=== PATIENT | female | born 1960 | race Caucasian/White ===

== ENCOUNTER 2024-04-04 16:00 | Outpatient (RCR) | payer MEDICARE, OTHER, SELFPAY | END 2024-04-04 16:05 | disposition home or self-care (01) | LOC: PT 16:00 | PROVIDERS: Visit Provider Nurse Practitioner Family | DX: L03.116 Cellulitis of left lower limb (principal); I87.2 Venous insufficiency (chronic) (peripheral); S81.802A Unspecified open wound, left lower leg, initial encounter; B95.7 Other staphylococcus as the cause of diseases classified elsewhere | CPT/HCPCS: 29580; 97140; 97163; 97164; 97597; 97598 ==

== ENCOUNTER 2024-08-21 15:00 | Outpatient (RCR) | payer MEDICARE, MEDICAID, SELFPAY | END 2024-08-21 23:59 | disposition home or self-care (01) | LOC: PT 15:00 | PROVIDERS: Visit Provider Family Medicine | DX: I87.311 Chronic venous hypertension (idiopathic) with ulcer of right lower extremity (principal) | CPT/HCPCS: 29580; 87070; 87077; 87186; 87205; 97163; 97164; 97597; 97598 ==

== ENCOUNTER 2024-09-20 13:58 | Outpatient (CLI) | payer MEDICARE, MEDICAID, SELFPAY ==
--- NOTE | 2024-09-20 14:03 | US_ITS ---
FINAL REPORT CLINICAL HISTORY: decreased pulses, sensation, discoloration of skin, wound on left mid calf in unna boot. Previous smoker, HTN, hyperlipidemia, bilateral claudication and rest pain. COMPARISON: None FINDINGS: ANKLE-BRACHIAL PRESSURE INDICES Pressure indices are as follows: RIGHT LOWER EXTREMITY: Ankle-brachial pressure index: 1.0 Comments: Normal LEFT LOWER EXTREMITY: Ankle-brachial pressure index: 1.0 Comments: Normal CONCLUSION: No evidence of significant obstructive peripheral vascular disease of the lower extremities Reviewed, Interpreted and Dictated by Mandeep Russo MD Transcribed by Kimberly Gonzalez Authenticated and [facility]
== END 2024-09-20 23:59 | disposition home or self-care (01) ==
LOC: RT 13:59
PROVIDERS: PCP Family Medicine; Visit Provider Nurse Practitioner
DX: R09.89 Other specified symptoms and signs involving the circulatory and respiratory systems (principal); I89.0 Lymphedema, not elsewhere classified; L97.921 Non-pressure chronic ulcer of unspecified part of left lower leg limited to breakdown of skin; L81.9 Disorder of pigmentation, unspecified; R20.8 Other disturbances of skin sensation
CPT/HCPCS: 93923

== ENCOUNTER 2024-10-03 14:07 | Outpatient (CLI) | payer MEDICARE, MEDICAID, SELFPAY ==
[2024-10-03 14:35] LABS: Basophils % 0.3 % (0.1-2.0); Eosinophils # 0.2 K/mm3 (0.0-0.4); Eosinophils % 1.5 % (0.1-12.0); Hematocrit 38.3 % (37.0-47.0); Hemoglobin 12.4 g/dL (12.2-16.2); Lymphocytes # 2.1 K/mm3 (0.7-4.5); Lymphocytes % 16.2 % (10-50); Mean Corpuscular HGB Conc 32.4 g/dL (31.8-35.4); Mean Corpuscular Hemoglobin 30.5 pg (27.0-31.2); Mean Corpuscular Volume 94.3 fl (81-99); Mean Platelet Volume 9.5 fl (7.4-10.4); Monocytes # 0.8 K/mm3 (0.1-1.0); Monocytes % 6.4 % (1.7-9.3); Neutrophils # 9.9 K/mm3 (1.8-7.8); Neutrophils % 75.1 % (37.0-80.0); Platelet Count 391 K/mm3 (142-424); Red Blood Count 4.06 M/mm3 (4.20-5.40); Red Cell Distribution Width 14.5 % (11.5-17.5); White Blood Count 13.2 K/mm3 (4.8-10.8)
[2024-10-03 15:23] LABS: Alanine Aminotransferase 23 U/L (12-78); Albumin Level 3.5 g/dl (3.5-5.0); Alkaline Phosphatase 87 U/L (38-126); Anion Gap 14.8 mEq/L (5-15); Aspartate Amino Transferase 24 U/L (14-36); Bilirubin,Direct 0.5 mg/dl (0.0-0.4); Bilirubin,Indirect 0.3 mg/dL (0.0-0.9); Bilirubin,Total 0.8 mg/dl (0.2-1.3); Bilirubin,Unconjugated 0.3 mg/dL (0.0-1.1); Blood Urea Nitrogen 18 mg/dl (7-17); Calcium 9.1 mg/dl (8.4-10.2); Carbon Dioxide 27 mmol/L (22.0-30.0); Chloride 101 mmol/L (98-107); Chol/HDL Ratio 3.9 (1-3.5); Cholesterol 125 mg/dl (140-200); Estimated Glomerular Filt Rate 45 ml/min (>60); GFR (African American) 55 ML/MIN (>60); Glucose 96 mg/dl (74-100); HDL Cholesterol 32 mg/dl (40-60); Potassium 4.8 mmoL/L (3.5-5.1); Sodium 138 mmol/L (136-145); Triglycerides 117 mg/dl (30-150); VLDL Cholesterol 23 mg/dL (0-40)
[2024-10-03 15:34] LABS: Direct LDL Cholesterol 59.14 mg/dL (100-129)
[2024-10-03 15:42] LABS: Free T4 (Free Thyroxine) 1.22 ng/dl (0.78-2.19)
[2024-10-03 15:54] LABS: Thyroid Stimulating Hormone 1.57 uIU/mL (0.465-4.68)
== END 2024-10-03 23:59 | disposition home or self-care (01) ==
LOC: LAB 14:08
PROVIDERS: PCP Family Medicine; Visit Provider Nurse Practitioner Family
DX: I89.0 Lymphedema, not elsewhere classified (principal); L97.921 Non-pressure chronic ulcer of unspecified part of left lower leg limited to breakdown of skin; R06.09 Other forms of dyspnea; I50.9 Heart failure, unspecified
CPT/HCPCS: 36415; 80048; 80061; 80076; 84439; 84443; 85025

== ENCOUNTER 2024-10-18 10:41 | Outpatient (CLI) | payer MEDICARE, MEDICAID, SELFPAY ==
--- NOTE | 2024-10-18 | CA_ITS ---
APPROVED REPORT Exam: Pharmacologic Technologist: Marcia Russell Ht: 5 ft 4 in Wt: 313 lbs BSA: 2.37 m2 HR: 64 bpm BP: 157/85 mmHg Medical History Medical History: HTN, Hyperlipidemia, Smoking Medications: Albuterol, Aspirin, Atorvastatin, Vit D3, Doxycycline Hyclate, Furosemide, Duoneb, Metoprolol Succinate ER, Potassium, Ranolazine ER, Valsartan Allergies: No known drug allergies Cardiac Risk Factors: HTN, Hyperlipidemia, FHX of CAD, Smoking Stress Test Details Test: Lexiscan HR Resting HR: 64 bpm Max Heart Rate (APMHR): 154 bpm Target HR (85% APMHR): 131 bpm Recovery HR: 73 bpm BP Resting BP: 157.0/85.0 mmHg Max BP: 168.0/82.0 mmHg Recovery BP: 151.0/76.0 mmHg ECG Stress ECG Conclusion Patient developed mild dyspnea after Lexiscan administration Ectopy: PACs, PVCs Electronically signed by : Ann Bravo MD 10/21/2024 01:09:44
--- NOTE | 2024-10-18 10:44 | CA_ITS ---
APPROVED REPORT EXAM: Comprehensive 2D, Doppler, and color-flow Echocardiogram Electric Meter Installer Helper: Myesha De León CRT Ht: 5 ft 4 in Wt: 313lbs BSA: 2.37 BP: 135/67 mmHg Indications: Congestive Heart Failure, COPD, Shortness of Breath, Peripheral Edema, CAD, Hyperlipidemia, Hypertension/HDD TDE very limited images, lung interference, 2D Dimensions EF AP4 50.90 % GL Strain -12.4 % M-Mode Dimensions RVDd 2.74 cm (0.9-2.6) LA Diam 4.30 cm (1.9-4.0) LVDd 5.16 cm (3.5-5.7) LVDs 3.18 cm (3.5-5.7) IVSd 1.48 cm (0.6-1.1) PWd 0.27 cm (0.6-1.1) EF (Teich) 68.30% FS 38.40% EDV (Teich) 127.20 mL ESV (Teich) 40.30 mL LV Diastology E Decel Time 273 (160-240 msec) E/A Ratio 0.85 Aortic Valve AO Peak GR. 8.90 mmHg Mitral Valve MV A Velocity 54.0 (40-130 cm/s) E/A Ratio 0.85 Tricuspid Valve TR P. Velocity 162.00 cm/s RAP Estimate 10.00 mmHg RVSP 20.50 mmHg Left Ventricle The left ventricle is normal size. The left ventricular systolic function is normal. The left ventricular ejection fraction is within the normal range. There is increased LV wall thickness. Diastolic function is indeterminate. There is normal LV segmental wall motion. LVEF is 55%. Right Ventricle The right ventricle is normal size. The right ventricular systolic function is normal. Atria The left atrium is mildly dilated. Right atrium is mildly dilated. There is no Doppler evidence of interatrial shunt. Aortic Valve The aortic valve leaflets are not well-visualized. There is no aortic valvular stenosis. No aortic regurgitation is present. Mitral Valve The mitral valve leaflets are not well-visualized. No evidence of mitral valve stenosis. There is no mitral valve regurgitation noted. Tricuspid Valve The tricuspid valve leaflets are not well-visualized. Trace tricuspid regurgitation. There is insufficient TR jet to estimate RVSP. The pulmonic valve is not well-visualized. Great Vessels The aortic root is not well-visualized. The IVC is not well-visualized. Pericardium There is no pericardial effusion. Other Information Study Quality: Technically Difficult Conclusion Technically very difficult study due to poor acoustic windows. Grossly, normal biventricular systolic function. Mild biatrial dilation. Valve leaflet mobility is not well-visualized, but grossly no significant valvular stenosis or regurgitation. Electronically signed by : Ann Bravo MD 10/26/2024 01:02:43
--- NOTE | 2024-10-18 11:27 | XR_ITS ---
FINAL REPORT CLINICAL HISTORY: dyspnea/elevate wbc COMPARISON: None FINDINGS: No acute pulmonary density is evident. There is blunting of the left costophrenic angle, that may represent effusion or scar. The mediastinum has a normal appearance. The cardiac silhouette is unremarkable. IMPRESSION: No evidence of pneumonia. Blunting left costophrenic angle, effusion or scar. Reviewed, Interpreted and Dictated by Yesenia Cagle MD Transcribed by Kimberly Gonzalez Authenticated and [facility]
--- NOTE | 2024-10-18 11:27 | NM_ITS ---
APPROVED REPORT Exam: Nuclear Stress Test Indication: SOB, Fatigue, CAD, CHF, HTN, High cholesterol, Family history, Edema Patient Location: Outpatient Stress Tech: Marcia Russell PR Tech:Maddi Adorno, ARRT, RT (R)(N) Ht: 5 ft 4 in Wt: 310 lbs Bra Size: B HR: 66 bpm BP: 157/85 mmHg BSA: 2.36 m2 TID: 1.07 BMI: 53.2 History: SOB, Fatigue, CAD, CHF, HTN, High cholesterol, Family history, Edema Procedure: Patient received 0.4 mg of intravenous Lexiscan, resting heart rate 66 bpm, resting blood pressure 157/85 mmHg, with Lexiscan maximum heart rate achieved was 82 bpm which is % of the maximum predicted heart rate and blood pressure was 168/82 mmHg. With Lexiscan, patient denied any complaint of chest pain. Cardiac Stress and Resting SPECT Images: Cardiac Stress and Resting SPECT images were obtained using technetium 99m Myoview 28.6 mCi stress and 10.66 mCi at rest. The patient could not lie on her abdomen. Therefore, prone stress imaging could not be performed. This may affect the diagnostic interpretation of the study findings. Resting and stress imaging in supine positions demonstrate no evidence of fixed or reversible perfusion defects. Gated imaging demonstrates normal global and regional LV systolic function. LVEF is calculated at 71%. Conclusion: No evidence of fixed or reversible perfusion defects. Gated imaging demonstrates normal global and regional LV systolic function. LVEF is calculated at 71%. Electronically signed by : Ann Bravo MD 10/21/2024 01:08:39
[2024-10-18] MEDS: REGADENOSON 0.4MG/5ML SYRINGE 0.4 MG IV (14:26)
[2024-10-18] MEDS: ISOTOPE MYOVIEW (PER STUDY) 1 DOSE IV (14:26)
[2024-10-18] MEDS: SODIUM CHLORIDE 0.9% 10ML SYR (RAD ONLY) 10 ML IV ×2 (14:26→14:27)
== END 2024-10-18 23:59 | disposition home or self-care (01) ==
LOC: RT 10:41
PROVIDERS: PCP Family Medicine; Visit Provider Nurse Practitioner Family
DX: I51.7 Cardiomegaly (principal); I50.9 Heart failure, unspecified; R06.09 Other forms of dyspnea; I89.0 Lymphedema, not elsewhere classified; L97.921 Non-pressure chronic ulcer of unspecified part of left lower leg limited to breakdown of skin
CPT/HCPCS: 71046; 78452; 93017; 93018; 93306; A9502; J2785

== ENCOUNTER 2024-10-26 12:26 | Outpatient (CLI) | payer MEDICARE, MEDICAID, SELFPAY ==
--- NOTE | 2024-10-26 12:27 | CT_ITS ---
FINAL REPORT TECHNIQUE: Post contrast axial imaging of the aorta and bilateral lower extremity was obtained and reviewed. This study was performed with techniques to keep radiation doses as low as reasonably achievable (ALARA). Individualized dose reduction techniques using automated exposure control or adjustment of mA and/or kV according to the patient''s size were employed. CLINICAL HISTORY: non healing wound LLE FINDINGS: There is linear opacity at the left base consistent with scar or atelectasis. Finding is best seen on images 7 through 9 of series 3. There is a well-circumscribed benign-appearing cyst in the right lobe of the liver measuring 4.1 x 3.1 cm. The gallbladder is normal. The spleen, pancreas, and adrenals are unremarkable. There is some density in the left lower pole collecting system, probably due to staghorn calculus measuring up to 2.5 cm. There is a left adnexal cyst measuring 4.2 x 3.2 cm, indeterminate. The urinary bladder is unremarkable. There is mild vascular calcification at the origin of the celiac axis and SMA. There is no significant stenosis. The CRISTIN is patent. There is moderate vascular calcification at the abdominal aorta and iliac vessels without evidence of stenosis. The external iliac arteries are patent. Right: There is mild calcification of the common femoral artery without evidence of stenosis. There is a patent SFA contiguous with patent trifurcation. There is two-vessel runoff to the right foot via the anterior and posterior tibial arteries. Note is made of edema of the right lower extremity. Left: There is mild vascular calcification of the common femoral artery without significant stenosis. There is a patent SFA and popliteal artery. There is three-vessel runoff to the left foot. There is a large soft tissue ulceration over the lateral aspect of the left lower leg with significant subcutaneous edema. IMPRESSION: Mild vascular calcifications without significant stenosis. Staghorn calculus in the left kidney. Soft tissue ulceration in the left lower leg with probable associated cellulitis. Reviewed, Interpreted and Dictated by Mandeep Russo MD Transcribed by Chani Gupta Authenticated and [facility]
[2024-10-26] MEDS: SODIUM CHLORIDE 0.9% 10ML SYR (RAD ONLY) 10 ML IV ×2 (12:58→12:59)
[2024-10-26] MEDS: 0.9 % SODIUM CHLORIDE 50 ML VIAL IV ×2 (12:58)
[2024-10-26] MEDS: IOPAMIDOL-370 (76%);100ML BOTTLE 100 ML IV (12:59)
[2024-10-26] MEDS: IOPAMIDOL-370 (76%);100ML BOTTLE 20 ML IV (12:59)
== END 2024-10-26 23:59 | disposition home or self-care (01) ==
LOC: RAD 12:27
PROVIDERS: PCP Family Medicine; Visit Provider Nurse Practitioner Family
DX: L97.921 Non-pressure chronic ulcer of unspecified part of left lower leg limited to breakdown of skin (principal); I89.0 Lymphedema, not elsewhere classified; I25.10 Atherosclerotic heart disease of native coronary artery without angina pectoris; R06.09 Other forms of dyspnea; I50.9 Heart failure, unspecified
CPT/HCPCS: 75635; Q9967

== ENCOUNTER 2024-11-07 13:49 | Outpatient (CLI) | payer MEDICARE, MEDICAID, SELFPAY ==
[2024-11-07 15:00] LABS: Chloride 106 mmol/L (98-107)
[2024-11-07 15:01] LABS: Potassium 5.3 mmoL/L (3.5-5.1); Sodium 139 mmol/L (136-145)
[2024-11-07 15:04] LABS: Anion Gap 10.3 mEq/L (5-15); Blood Urea Nitrogen 21 mg/dl (7-17); Calcium 9.2 mg/dl (8.4-10.2); Carbon Dioxide 28 mmol/L (22.0-30.0); Estimated Glomerular Filt Rate 35 ml/min (>60); GFR (African American) 42 ML/MIN (>60); Glucose 91 mg/dl (74-100)
[2024-11-07 15:15] LABS: NT Pro Brain Natriuretic Pep. 279 pg/mL (0-125)
== END 2024-11-07 23:59 | disposition home or self-care (01) ==
LOC: LAB 13:50
PROVIDERS: PCP Family Medicine; Visit Provider Nurse Practitioner Family
DX: E78.2 Mixed hyperlipidemia (principal); I10 Essential (primary) hypertension; I25.118 Atherosclerotic heart disease of native coronary artery with other forms of angina pectoris; R06.09 Other forms of dyspnea
CPT/HCPCS: 36415; 80048; 83880

== ENCOUNTER 2024-12-03 08:45 | Outpatient (CLI) | payer MEDICARE, MEDICAID, SELFPAY ==
[2024-12-03] VITALS (9 sets, daily range): BP systolic 98–135; BP diastolic 46–78; PULSE 52–80; RESP 18–22; TEMP 36.8; O2SAT 96–98; BMI 52.8
--- OUTSIDE RECORDS SUMMARY | 2024-12-03 08:47 | XMS_ITS | Data Portability ---
Author Organization [facility] ADMIN Address [address] [place] [id number] Care Team Providers Care Evaluation Analyst Name Role Phone MARISELA MARSHALL Referring Provider Assessment No assessment recorded. Plan of Treatment Reminders Order Date Submit Date Provider Last Modified By Organization Details Last Modified Time Details Appointments None recorded. Lab None recorded. Referral None recorded. Procedures None recorded. Surgeries None recorded. Imaging LDCT, chest, for lung cancer screening - 1- Did patient participate in a shared decision-ma hugh session with the provider? YES2- Is patient age between 50-77 years old? YES3- Did patient smoke at least 20 pack year? YES4- Is patient current smoker or quit smoking within the last 15 years? YES5- Is the patient asymptomati c (no signs or symptoms of lung cancer)? YES [email or web address], [place], [address], 3 10:44:45 Medication Orders Stiolto Respimat 2.5 mcg-2.5 mcg/actuati on solution for inhalation 2022 023 [facility] [place], [address], 3 10:25:21 albuterol sulfate HFA 90 mcg/actuati on aerosol inhaler 2022 023 [facility] [address] [place], [address], 3 10:25:21 Patient TargetsNo targets recorded. Patient InstructionsNo instructions recorded. Reason for Referral None Reported. Results Created Date Observation Date Name Description Value Unit Range Abnormal Flag Note LastModifiedBy Organization Detail LastModifiedTime Result Notes None recorded. Problems Name Problem SNOMED Code Status Onset Date Resolution Date Notes Provider Name and Address Organization Details Recorded Time Pulmonary emphysema 17726971 Active 2022 Not Available [facility] 3 13:26:57 Dyspnea on exertion 97552963 Active 2022 Not Available [facility] 3 13:26:57 Obstructive sleep apnea syndrome 12261047 Active 2022 Not Available [facility] 3 13:26:57 Morbid obesity 012138553 Active 2022 Not Available [facility] 3 13:26:57 Nicotine dependence in remission 793750985 Active 2022 Not Available [facility] 3 13:26:57 Problem Notes None recorded. Procedures Surgical History Date Name Laterality Status Provider Name and Address Organization Details Recorded Time total hysterectomy completed [facility] 02/28/2023 10:03:18 Imaging Results None recorded. Procedure Notes None recorded. Medical Equipment None Reported. Allergies No known drug allergies Medications Name Sig Start Date Stop Date Status Note LastModified by Organization Details LastModified Time furosemide 40 mg tablet TAKE 1 TABLET BY MOUTH ONCE DAILY active Not Available Not Available No t Available atorvastatin 40 mg tablet TAKE 1 TABLET BY MOUTH ONCE DAILY AT NIGHT active Not Available Not Available No t Available prednisone 10 mg tablet TAKE 5 TABLETS BY MOUTH ONCE DAILY FOR 2 DAYS AND THEN DECREASE BY 1 TABLET EVERY 2 DAYS UNTIL GONE active Not Available Not Available No t Available doxycycline hyclate 100 mg capsule TAKE 1 CAPSULE BY MOUTH TWICE DAILY active Not Available Not Available No t Available prednisone 20 mg tablet TAKE 3 TABLETS BY MOUTH ONCE DAILY FOR 5 DAYS active Not Available Not Available No t Available ciprofloxacin 500 mg tablet TAKE 1 TABLET BY MOUTH EVERY 12 HOURS FOR 10 DAYS active Not Available Not Available No t Available sulfamethoxazo le 800 mg-trimethopri m 160 mg tablet TAKE 1 TABLET BY MOUTH TWICE DAILY FOR 7 DAYS active Not Available Not Available No t Available potassium chloride ER 20 mEq tablet,extende d release(part/c ryst) TAKE 1 TABLET BY MOUTH ONCE DAILY active Not Available Not Available No t Available doxycycline monohydrate 100 mg capsule TAKE 1 CAPSULE BY MOUTH TWICE DAILY FOR 7 DAYS active Not Available Not Available No t Available cephalexin 500 mg capsule TAKE 1 CAPSULE BY MOUTH THREE TIMES DAILY FOR 5 DAYS active Not Available Not Available No t Available metoprolol succinate ER 25 mg tablet,extende d release 24 hr TAKE 1 TABLET BY MOUTH ONCE DAILY IN THE EVENING active Not Available Not Available No t Available albuterol sulfate HFA 90 mcg/actuation aerosol inhaler INHALE 2 PUFFS BY MOUTH EVERY 4 HOURS active Not Available Not Available No t Available amoxicillin 875 mg-potassium clavulanate 125 mg tablet TAKE 1 TABLET BY MOUTH TWICE DAILY FOR 10 DAYS active Not Available Not Available No t Available valsartan 40 mg tablet TAKE 1 TABLET BY MOUTH ONCE DAILY active Not Available Not Available No t Available ranolazine ER 500 mg tablet,extende d release,12 hr TAKE 1 TABLET BY MOUTH EVERY 12 HOURS active Not Available Not Available No t Available Stiolto Respimat 2.5 mcg-2.5 mcg/actuation solution for inhalation INHALE 2 PUFFS BY MOUTH ONCE DAILY 2023 active Not Available Not Available Not Avai lable aspirin 81 mg capsule Take 1 capsule every day by oral route. active Not Available Not Available No t Available Vitals Date Recorded Body height Body weight Body temperature Oxygen saturation Oxygen saturation in Arterial blood by Pulse oximetry Heart rate Systolic blood pressure Diastolic blood pressure Provider Name and Address Organization Details Last Updated DateTime 3 165.1 cm 415105. 75 g 99.6 [degF] 99 % 99 % 73 /min 142 mm[Hg] 89 mm[Hg] Dariel guevara [place] [facility] [place] 3 10:01:46 Social History Question Answer Notes LastModified by Organizat ion Details LastModified Time Tobacco Smoking Status Former Smoker Not Available [facility] 06/27/2023 13:26:58 What Is Your Level Of Alcohol Consumption? None CHART_MERGE Information not available 06/27/2023 What Is Your Level Of Caffeine Consumption? Moderate CHART_MERGE Information not available 06/27/2023 When Did You Quit Smoking? 11-15yearssin celastcigaret te CHART_MERGE Information not available 06/27/2023 What Is Your Current Pack Years? 30ormorepacky ears CHART_MERGE Information not available 06/27/2023 At What Age Did You Start Smoking Tobacco? 23 CHART_MERGE Information not available 06/27/2023 Do You Use Any Illicit Or Recreational Drugs? No CHART_MERGE Information not available 06/27/2023 Do You Or Have You Ever Used Any Other Forms Of Tobacco Or Nicotine? No CHART_MERGE Information not available 06/27/2023 Sex: Unknown Functional Status None recorded. Mental Status None recorded. Family History Nothing Reported. Medical History No medical history recorded. Gynecological HistoryNo gynecological history recorded. Obstetrics History GPAL:G 0 P 0 0 0 0 Past Encounters Encounter ID Performer Location Encounter Start Date Encounter Closed Date Diagnosis/Indication Diagnosis SNOMED-CT Code Diagnosis ICD10 Code Diagnosis Note [id number] Alannah Romano MD [facility] [address] [facility] [address] [place] [address] 02/28/2023 09:52:42 02/28/2023 10:19:05 Pulmonary emphysema 34575128 J43.9 Images and report of chest x-ray done recently were reviewed and discussed with the patient, there is no evidence of acute finding.Sp irometry done in the office today showed no clear evidence of obstructio n which could be due to patient body habitus but there is significan t decrease in FEV1 down to 31% predicted and that was reviewed and discussed with the patient.Wi ll check alpha-1 antitrypsi n genotype by buccal mucosal swab in the office today.Will start patient on a controller inhaler using Stiolto. Patient instructed to call if there is any new symptoms. Dyspnea on exertion 6084 5006 R06.09 Patient instructed to exercise as tolerated and will arrange for her to have Keli to use on a p.r.n. basis. Obstructiv e sleep apnea syndrome 88105078 G47.33 Patient instructed to continue with the use of her CPAP regularly and comply with the cleaning instructio ns and supply changes. Morbid obesity 462353755 E66.01 Patient recommende d to diet and exercise in order to lose weight. I entertaine d the idea of bariatric surgery with the patient and she wants to think about it and let me know. Nicotine d ependence in remission 636306136 F17.211 Patient quit smoking about 12 years ago and will continue with annual low-dose CT of the chest testing for early lung cancer detection. Screening for malignant neoplasm of respiratory tract 993003063 Z12.2 The patient has participat ed in a shared decision making session during which potential risk and benefits of LDCT lung cancer screening were discussed. The patient was informed of the importance of adherence to annual screening, impact of comorbidit ies, the ability/wi llingness to undergo diagnosis and treatment. The patient was informed of the importance of smoking cessation and/or maintainin g smoking abstinence , including the offer of Medicare-c over tobacco cessation counseling services, if applicable . The patient is asymptomat ic (no symptoms such as fever, chest pain, new shortness of breath, new or changing cough, coughing up blood, or unexplaine d significan t weight loss). Health Concerns Section Related Observation LastModified by Organization Detai ls LastModified Time None Recorded Concern Status LastModified by Organization Details LastModified Time None Recorded Advance Directives Directive None Recorded Payers Encounter Date Sequence Insurance Name Policy Number Policy Peña Covered Member ID Peña Member ID Guarantor Name 02/28/2023 1 [facility] (MEDICAID REPLACEMENT - [place]MO) [id number] Chani Velasquez [id number] Chani Velasquez Notes Date Note Type Note Provider Name and Address Organization Details Recorded Time 02/28/2023 text/html Patient presents to the office today for initial evaluation. Patient states that over the last few years she is having worsening shortness breath at rest and with exertion. She denies fever, chills or diaphoresis. No chest pain, angina or palpitation. No PND or orthopnea. Patient denies wheezing or hemoptysis. She does not inhalers. Patient report history of heavy tobacco use of 1 pack per day for 30 years and quit about 12 years ago. Patient using CPAP regularly. Patient denies significant change in her weight or appetite. Currently patient participating in the cardiac rehab program at [facility] due to coronary artery disease/RCA obstruction. Alannah Romano MD [address], [place], [address], [facility] [place] [facility] [place] 02/28/2023 10:25:41 OBGyn Episode No OBEpisode recorded.
[2024-12-03] MEDS: 0.9 % SODIUM CHLORIDE 1000ML 1,000 ML 999 ML IV (09:15)
[2024-12-03] MEDS: METOPROLOL TARTRATE 50MG TABLET PO (09:19)
[2024-12-03] MEDS: IVABRADINE HCL 7.5MG TABLET PO (09:19)
[2024-12-03 09:42] LABS: Chloride 103 mmol/L (98-107); Potassium 4.4 mmoL/L (3.5-5.1); Sodium 138 mmol/L (136-145)
[2024-12-03 09:45] LABS: Blood Urea Nitrogen 15 mg/dl (7-17); Creatinine Clearance Estimated 37 mL/min (50-200); Estimated Glomerular Filt Rate 41 ml/min (>60); GFR (African American) 50 ML/MIN (>60)
[2024-12-03 09:46] LABS: Anion Gap 15.4 mEq/L (5-15); Calcium 8.9 mg/dl (8.4-10.2); Carbon Dioxide 24 mmol/L (22.0-30.0); Glucose 109 mg/dl (74-100)
--- NOTE | 2024-12-03 10:00 | CT_ITS ---
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 A noncontrast coronary calcium scan was performed. A CT attenuation threshold of 130 Hounsfield units (HU) was used for the detection of calcium in contiguous voxels of 1 sq mm in area to be counted as individual lesions. Bolus tracking in the ascending aorta with a threshold of 180 HU was performed. Immediately afterwards, ECG synchronized cardiac CT was then performed from the cardiac base to apex using retrospective gating with ECG tube current modulation. A total of 85 mL of Isovue 370 mg/mL contrast medium was administered at 5 mL/sec followed by a saline flush using a biphasic injection protocol. A tube voltage of 120 KVp was used. The patient received the following medications prior to the cardiac CT. 50 mg of oral metoprolol 15 mg of oral ivabradine The average heart rate at the time of acquisition was 94 bpm and regular. Image Reconstruction Transaxial images were reconstructed at 0.67 mm slide thickness. Data was reviewed interactively on an advanced workstation capable of 2 and 3-dimensional displays in all conventional reconstruction formats, including multiplanar reformations, maximum intensity projections, curved multiplanar reformations, and volume rendered reconstructions. When applicable, selected routine images describing the relevant coronary anatomy and pathology were saved and sent to PACS. Complications None Technical Quality Overall image quality was suboptimal due to elevated HR. Coronary artery opacification was suboptimal. Total DLP (Dose-Length Product) is 2513.3 mGy-cm. The reported value represents the total of one or more individual components during the CT acquisition of this date and at this time, and as such, the same value may appear in more than one CT report depending on the interpreting/reporting physicians. COMPARISON None FINDINGS CT Coronary Calcium Scoring LMA (Left Main Artery) = 0 LAD (Left Anterior Descending) = 198 LCX (Left Coronary Circumflex) = 78 RCA (Right Coronary Artery) = 146 Total Calcium Score = 422 using the AJ-130 method. The observed calcium score of 422 is at 94th percentile for subjects of the same age, sex, and race/ethnicity. The interpretation of the calcium heart score is based on the following continuum*: 0 = no calcified plaque detected (risk of coronary artery disease is very low ??? less than 5%) 1-10 = calcium detected in extremely minimal levels (risk of coronary diseases is still low ??? less than 10%) 11-100 = mild levels of plaque detected with certainty (mild or minimal narrowing of heart arteries is likely) 101-400 = definite,at least moderate levels of plaque detected (relatively high risk of a heart attack within 3-5 years) >401-999 = extensive levels of plaque detected (high risk of heart attack, high levels of vascular disease are present, high likelihood of at least one significant coronary narrowing) *The calcium heart score quantifies the burden of coronary calcification/plaque in the coronary arteries. The calcium heart score is not able to evaluate the presence or burden of non-calcified (i.e. soft) plaque. There is no identifiable calcification in the aortic valve, mitral annulus or mitral valve, pericardium, or myocardium. Coronary CT Angiography The coronary arterial system is right dominant. Quantitative Stenosis Grading: Left Main (LM): The left main originates normally from the left sinus of Valsalva. The LM bifurcates into the left anterior descending artery and left circumflex artery. The LM is patent with no evidence of atherosclerosis. Left Anterior Descending (LAD) and Diagonal Branches: The LAD gives off 2 diagonal branch(es).there is mixed calcified/noncalcified plaque in the proximal and mid LAD segments with up to 50 to 70% luminal stenosis. There is no evidence of LAD-myocardial bridge. Left Circumflex (LCX) and Obtuse Marginals (OM): The LCX gives off 1 Obtuse Marginal (OM) branch(es). There is mixed calcified/noncalcified plaque in the proximal LCx segment with up to 50 to 70% luminal stenosis. Right Coronary Artery (RCA): The RCA originates normally from the right sinus of Valsalva. The RCA gives off a posterior descending artery (PDA) and posterolateral (PL) branches. There is mixed calcified/noncalcified plaque in the proximal RCA segment with up to 50 to 70% luminal stenosis. Non-Coronary Cardiac Findings: Analysis of the left ventricular (LV) structure and function was performed after 3-D reconstruction of the LV from axial images, with user-corrected automatic contouring for assessment of LV volumes and user-defined reconstruction from oblique planes for measurement of 3-D cardiac structure and function. -The left ventricle systolic function is normal. -There is no left atrial appendage filling defect. Two right pulmonary veins and two left pulmonary veins drain normally into the left atrium. -No pericardial thickening or calcification. -Central and branch pulmonary arteries in the hktvn-ox-aszd are unremarkable. -Thoracic aorta within the visualized thoracic aortic-branches in the akeka-py-lshe is unremarkable. Extracardiac Structures No significant extra-cardiac findings. Note, however, that this study is focused on the cardiac findings. IMPRESSION -Technically difficult study due to suboptimal imaging quality in the setting of elevated HR despite administration of HR controlling medications. -Presence of coronary calcification with an Agatston score = 422 using the AJ-130 method. -The observed calcium score of 422 is at 94th percentile for subjects of the same age, sex, and race/ethnicity. -Moderate, multivessel atherosclerotic coronary disease, with inconclusive evidence for significant flow-limiting plaque in the setting of technically difficult imaging due to elevated HR. -CAD-RADS 3. Management recommendations per ACC/AHA guidelines*, as clinically appropriate. *Recommendations: CAD RADS 0: Reassurance. Consider non-atherosclerotic causes of chest pain. CAD RADS 1: Consider non-atherosclerotic causes of chest pain. Consider preventive therapy and risk factor modification. CAD RADS 2: Consider non-atherosclerotic causes of chest pain. Consider preventive therapy and risk factor modification, particularly for patients with nonobstructive plaque in multiple segments. CAD RADS 3: Consider further functional testing. Consider symptom-guided anti-ischemic and preventive pharmacotherapy as well as risk factor modification per published guideline statements. CAD RADS 4A: Consider further functional testing or invasive coronary angiography with revascularization per published guideline statements. Consider symptom-guided anti-ischemic and preventive pharmacotherapy as well as risk factor modification per published guideline statements. CAD RADS 4B: Invasive coronary angiography recommended with revascularization per published guideline statements. Consider symptom-guided anti-ischemic and preventive pharmacotherapy as well as risk factor modification per published guideline statements. CAD RADS 5: Consider invasive angiography and/or viability assessment with revascularization per published guideline statements. Consider symptom-guided anti-ischemic and preventive pharmacotherapy as well as risk factor modification per published guideline statements. CRITICAL RESULT None COMMUNICATION Per this written report The coronary and cardiac findings of this CCTA were reviewed, reported, and signed by Priyank Bravo MD (Mechanic Chief) Conclusion Electronically signed by : Ann Bravo MD 12/04/2024 13:31:22
[2024-12-03] MEDS: IOPAMIDOL-370 (76%);100ML BOTTLE 170 ML IV (10:52)
[2024-12-03] MEDS: SODIUM CHLORIDE 0.9% 10ML SYR (RAD ONLY) 10 ML IV (10:52)
[2024-12-03] MEDS: 0.9 % SODIUM CHLORIDE 50 ML VIAL 100 ML IV (10:52)
== END 2024-12-03 11:30 | disposition home or self-care (01) ==
PROVIDERS: PCP Family Medicine; Visit Provider Nurse Practitioner Family
DX: R06.02 Shortness of breath (principal); I25.10 Atherosclerotic heart disease of native coronary artery without angina pectoris
CPT/HCPCS: 75574; 80048; J7030; Q9967

== ENCOUNTER 2024-12-20 07:28 | Outpatient (CLI) | payer MEDICARE, MEDICAID, SELFPAY ==
--- NOTE | 2024-12-20 07:29 | CT_ITS ---
FINAL REPORT TECHNIQUE: Axial CT images of the chest were obtained without contrast. Coronal and sagittal reformatted images were obtained. Low-dose protocol was utilized. This study was performed with techniques to keep radiation doses as low as reasonably achievable (ALARA). Individualized dose reduction techniques using automated exposure control or adjustment of mA and/or kV according to the patient's size were employed. CLINICAL HISTORY: Lung cancer screening, former smoker x 16 yrs ago, smoked 1 pack per day for 20 yrs., COPD, CHF COMPARISON: None FINDINGS: CT CHEST WITHOUT, LOW DOSE SCREENING CTDl vol(mGy): 2.90 DLP (mGy-cm): 107.86 There is no axillary adenopathy. There is no hilar or mediastinal adenopathy. The heart size is normal. There is no pericardial or pleural effusion. Lung window images demonstrate a multitude of noncalcified nodules, more evident in the right lung than the left lung. There is a 4 mm nodule in the right upper lobe seen on image 32 of series 4. There is a nodule in the posterior right lower lobe measuring 4 mm seen on image 55 of series 4. There is a nodule in the anterior right lower lobe measuring 4 mm seen on image 60 of series 4. There is a 4 mm nodule in the medial right base seen on image 64 of series 4. There is a 4 mm nodule in the posterior left base seen on image 64 of series 4. There is a 4.4 x 3.2 cm low-attenuation focus in the right lobe of the liver probably due to a benign cyst. IMPRESSION: Multitude of noncalcified nodules bilaterally. Lung RADS category 2S. Recommend 12 month follow-up low-dose chest CT per Fleischner criteria. Modifier S: Cyst right lobe of the liver. Reviewed, Interpreted and Dictated by Mandeep Russo MD Transcribed by Sharon Chaudhary Authenticated and . [facility]
--- OUTSIDE RECORDS SUMMARY | 2024-12-20 07:31 | XMS_ITS | Data Portability ---
Author Organization [facility] [facility] AD[facility] Address [address] [place] [id number] Care Team Providers Care Equal Opportunity Director Name Role Phone MARISELA MARSHALL Referring Provider [...] symptoms of lung cancer)? YES [address], [place], [address], 3 10:44:45 Medication Orders Stiolto Respimat 2.5 mcg-2.5 mcg/actuati on solution for inhalation 2022 023 [facility] [place], [address], 3 10:25:21 albuterol sulfate HFA 90 mcg/actuati on aerosol inhaler 2022 023 [facility] [address] [place], [address], 3 10:25:21 Patient TargetsNo targets recorded. Patient InstructionsNo instructions recorded. Reason for Referral None Reported. Results Created Date Observation Date Name Description Value Unit Range Abnormal Flag Note LastModifiedBy Organization Detail LastModifiedTime Result Notes None recorded. Problems Name Problem SNOMED Code Status Onset Date Resolution Date Notes Provider Name and Address Organization Details Recorded Time Pulmonary emphysema 85721320 Active 2022 Not Available [facility] 3 13:26:57 Dyspnea on exertion 09370140 Active 2022 Not Available [facility] 3 13:26:57 Obstructive sleep apnea syndrome 58485290 Active 2022 Not Available [facility] 3 13:26:57 Morbid obesity 690738983 Active 2022 Not Available [facility] 3 13:26:57 Nicotine dependence in remission 130337147 Active 2022 Not Available [facility] 3 13:26:57 Problem Notes None recorded. Procedures Surgical History Date Name Laterality Status Provider Name and Address Organization Details Recorded Time total hysterectomy completed [facility] 02/28/2023 10:03:18 Imaging Results None recorded. [...] Details Last Updated DateTime 3 165.1 cm 659854. 75 g 99.6 [degF] 99 % 99 % 73 /min 142 mm[Hg] 89 mm[Hg] Dariel guevara [place] - [facility] - [place] & [place] 3 10:01:46 Social History Question Answer Notes LastModified by Organizat ion Details LastModified Time Tobacco Smoking Status Former Smoker Not Available [facility] 06/27/2023 13:26:58 What Is Your Level Of [...] SNOMED-CT Code Diagnosis ICD10 Code Diagnosis Note [id number] Alannah Romano MD [facility] [address] [place] [address] 02/28/2023 09:52:42 02/28/2023 10:19:05 Pulmonary emphysema 99604281 J43.9 Images and report of chest x-ray [...] p.r.n. basis. Obstructiv e sleep apnea syndrome 57302756 G47.33 Patient instructed to continue with the use of her CPAP regularly and comply with the cleaning instructio ns and supply changes. Morbid obesity 399971691 E66.01 Patient recommende d to diet and exercise in order to lose weight. I entertaine d the idea of bariatric surgery with the patient and she wants to think about it and let me know. Nicotine d ependence in remission 218286525 F17.211 Patient quit smoking about 12 years ago and will continue with annual low-dose CT of the chest testing for early lung cancer detection. Screening for malignant neoplasm of respiratory tract 541046859 Z12.2 The patient has participat ed in [...] Peña Member ID Guarantor Name 02/28/2023 1 [facility] (MEDICAID REPLACEMENT - [id number] Chani Velasquez [id number] Chani Velasquez Notes Date Note Type Note [...] participating in the cardiac rehab program at [facility] due to coronary artery disease/RCA obstruction. Alannah oRmano MD [address], [place], [address], [facility] - [place] - [place] & [place] 02/28/2023 10:25:41 OBGyn Episode No OBEpisode recorded.
[2024-12-20] MEDS: ALBUTEROL 0.083% 2.5 MG/3 ML NEB IH (09:18)
== END 2024-12-20 23:59 | disposition home or self-care (01) ==
LOC: RAD 07:29
PROVIDERS: PCP Family Medicine; Visit Provider Internal Medicine Pulmonary Disease
DX: R06.09 Other forms of dyspnea (principal); F17.210 Nicotine dependence, cigarettes, uncomplicated
CPT/HCPCS: 71271; 94060; 94618; 94726; 94729; J7613

== ENCOUNTER 2024-12-25 08:19 | Day surgery (SDC) | payer MEDICARE, MEDICAID, SELFPAY ==
[2024-12-25] VITALS (11 sets, daily range): BP systolic 93–138; BP diastolic 44–79; PULSE 63–75; RESP 16–20; O2SAT 91–96; BMI 52.8
--- NOTE | 2024-12-25 06:56 | IR_ITS ---
APPROVED REPORT Patient Location: Outpatient [facility] Specialist: ANGIE Goodman RT (R) PROCEDURES Right heart catheterization Left heart catheterization Left ventriculogram Selective coronary angiogram Drug-eluting stent deployment to the proximal and mid LAD INDICATION Abnormal Myoview, Chronically occluded distal right coronary artery which fills via nbgp-if-wnbrt collaterals, Angina pectoris, Coronary artery disease, Pulmonary hypertension, Informed consent was obtained prior to the procedure. COMPLICATIONS NONE Estimated Blood Loss: LESS THAN 10 ML TECHNIQUE One percent lidocaine was used to anesthetize the right anterior aspect of the right wrist. The right radial artery was accessed via the Seldinger technique and a 6 Kyrgyz hydrophilic sheath was placed in the right radial artery. Following this one percent lidocaine was used to anesthetize the right anterior aspect of the right neck. The right internal jugular vein was accessed via the Seldinger technique and a 7 Kyrgyz sheath was placed in the right internal jugular vein. Following this an arterial cocktail was administered using 5000U heparin, 2.5 mg verapamil, 1mg Lidocaine and 800mcg nitroglycerin into the right radial sheath. A 6 Kyrgyz JL 3 catheter was used to perform left heart catheterization left ventriculogram and selective coronary angiography. At the end the diagnostic angiogram therapeutic Was administered given a therapeutic ACT and the guide catheter was placed in left main artery followed by Choice PT extra-support wire. A 3.5 x 38 mm Edil frontier stent was deployed at 22 charlene in the proximal to mid LAD reducing the stenosis. Intravascular ultrasound probe was advanced which demonstrated there was disease both proximal and distal which was severe. A 4 mm x 12 mm [place]se[place] frontier stent was placed in the ostial LAD extending into the for stent that was placed in the proximal segment and then deployed at 22 charlene. The balloon was deployed at 18 charlene throughout the 3.5 mm stent. A 3 mm x 38 mm Edil frontier stent was placed distal to to the 3.5 mm stent and deployed at 20 charlene. The balloon was brought back deployed at 24 charlene to match the stents into further post dilate. KAR-3 flow was present before and after procedure. At the end the procedure the apparatus was removed the sheath was removed and hemostasis was achieved and TR banding patient was transferred to the postoperative care in stable condition. While a [place]-Giancarlo catheter was used to perform right heart catheterization. Saturations were obtained in the pulmonary artery and right atrium. At the end of the procedure the arterial sheath was removed good hemostasis was achieved using Traclet band. Patient was transferred to the postop holding area in stable condition for venous sheath removal. ANGIOGRAPHIC RESULTS The left main artery Normal The left anterior descending artery Has proximal tandem 60 and 70% stenoses with mid vessel 60% stenoses. The circumflex artery Is codominant and has proximal 10 and 20% stenoses The right coronary artery Codominant and occluded at mid vessel with the distal segment filling via phge-ee-zdacd collaterals from the LAD The RAINES ventriculogram reveals Normal 55 to 60% The left ventricular end-diastolic pressure Severely elevated at 30 mmHg Right atrial pressure 25 mmHg Pulmonary artery pressure 55/38 mmHg Pulmonary artery occlusion pressure 30 mmHg Saturation right atrial saturation 70% Pulmonary artery saturation 71% Aortic saturation 98% Hemoglobin 12.6 Cardiac output 6.4 L/min IMPRESSION Moderate to severe pulmonary hypertension with elevated biventricular filling pressures Severe disease in the proximal to mid LAD Successful stenting of the proximal to mid LAD severe disease reduced to 0% with 3 drug-eluting stents Chronically occluded right coronary which fills via jjmw-vd-nnudy collaterals Normal ejection fraction PLAN 1. Effient and aspirin 2. Treatment of HFpEF with diuretics and weight loss 3. Recommend sleep study 4. LDL less than 55 achieved high intensity statin 5. Avoidance of tobacco products 6. Risk factor modification Electronically signed by : Hermilo Peacock MD 12/25/2024 13:37:24
[2024-12-25 09:05] LABS: Basophils # 0.1 K/mm3 (0-0.2); Basophils % 0.4 % (0.1-2.0); Eosinophils # 0.3 Kmm3 (0.0-0.4); Eosinophils % 2.3 % (0.1-12.0); Hematocrit 38.6 % (37.0-47.0); Hemoglobin 12.6 g/dL (12.2-16.2); Lymphocytes % 16.7 % (10-50); Mean Corpuscular HGB Conc 32.6 g/dL (31.8-35.4); Mean Corpuscular Hemoglobin 31.3 pg (27.0-31.2); Mean Corpuscular Volume 95.8 fl (81-99); Mean Platelet Volume 10.4 fl (7.4-10.4); Monocytes # 0.9 K/mm3 (0.1-1.0); Monocytes % 7.8 % (1.7-9.3); Neutrophils # 8.4 K/mm3 (1.8-7.8); Neutrophils % 72.1 % (37.0-80.0); Nucleated Red Blood Cells # 0 10^3/uL; Nucleated Red Blood Cells % 0 %; Platelet Count 308 K/mm3 (142-424); Red Blood Count 4.03 M/mm3 (4.20-5.40); Red Cell Distribution Width 14.8 % (11.5-17.5); White Blood Count 11.7 K/mm3 (4.8-10.8)
[2024-12-25 09:29] LABS: Anion Gap 9.5 mEq/L (5-15); Blood Urea Nitrogen 27 mg/dl (7-17); Calcium 9.2 mg/dl (8.4-10.2); Carbon Dioxide 23 mmol/L (22.0-30.0); Chloride 107 mmol/L (98-107); Creatinine Clearance Estimated 37 mL/min (50-200); Estimated Glomerular Filt Rate 41 ml/min (>60); GFR (African American) 50 ML/MIN (>60); Glucose 98 mg/dl (74-100); Potassium 4.5 mmoL/L (3.5-5.1); Sodium 135 mmol/L (136-145)
[2024-12-25] MEDS: LIDOCAINE 1% 10ML MDV 10 ML IJ (10:41)
[2024-12-25] MEDS: 0.9 % SODIUM CHLORIDE 500 ML 25 ML IV (10:41)
[2024-12-25] MEDS: HEPARIN 1,000 UNITS/ML 10ML VIAL (CATH LAB) 5000 UNIT IV (10:42)
[2024-12-25] MEDS: diphenhydrAMINE 50MG/ML VIAL 50 MG IV (10:42)
[2024-12-25] MEDS: VERAPAMIL 2.5MG/ML 2ML VIAL 2.5 MG IV (10:42)
[2024-12-25] MEDS: HEPARIN 1,000 UNITS/500ML NS (CATH LAB) 3000 UNIT IV (10:42)
[2024-12-25] MEDS: NITROGLYCERIN 800MCG/8ML SYR (CATH LAB) 800 MCG IA (10:42)
[2024-12-25] MEDS: MIDAZOLAM HCL 1MG/ML 5ML VIAL 1 MG IV (11:34)
[2024-12-25] MEDS: FENTANYL 100MCG/2ML VIAL 50 MCG IV (11:35)
[2024-12-25] MEDS: PRASUGREL 10MG TAB 60 MG PO (11:54)
[2024-12-25] MEDS: ONDANSETRON 4MG/2ML VIAL 4 MG IV (13:30)
[2024-12-25] MEDS: IOPAMIDOL-370 (76%);100ML BOTTLE 125 ML IV (14:12)
[2024-12-25 14:15] LABS: CATHL Activated Clotting Time 272 SEC (74-125); CATHL Arterial O2 SAT 71.1 % (90-100); CATHL Venous O2 SAT 70.8 % (75-80)
== END 2024-12-25 14:35 | disposition home or self-care (01) ==
PROVIDERS: PCP Family Medicine; Visit Provider Internal Medicine
PROC: 4A023N7 Measurement of Cardiac Sampling and Pressure, Left Heart, Percutaneous Approach (ICD-10-PCS; CPT 93452; principal; 2024-12-25 08:45)
PROC: 4A023N6 Measurement of Cardiac Sampling and Pressure, Right Heart, Percutaneous Approach (ICD-10-PCS; CPT 93451; 2024-12-25 08:45)
DX: I27.20 Pulmonary hypertension, unspecified (principal); I25.118 Atherosclerotic heart disease of native coronary artery with other forms of angina pectoris; I25.82 Chronic total occlusion of coronary artery; I13.0 Hypertensive heart and chronic kidney disease with heart failure and stage 1 through stage 4 chronic kidney disease, or unspecified chronic kidney disease; N18.9 Chronic kidney disease, unspecified; J44.9 Chronic obstructive pulmonary disease, unspecified; I50.9 Heart failure, unspecified; E87.5 Hyperkalemia; R93.1 Abnormal findings on diagnostic imaging of heart and coronary circulation; Z95.5 Presence of coronary angioplasty implant and graft; Z79.899 Other long term (current) drug therapy; Z87.891 Personal history of nicotine dependence; I77.1 Stricture of artery
CPT/HCPCS: 80048; 82810; 85025; 85347; 92928; 92978; 93460; 99152; 99153; C1725; C1760; C1769; C1874; C1894; C9600; J1200; J1644; J2405; J3010; Q9967

== ENCOUNTER 2024-12-27 14:39 | Outpatient (CLI) | payer MEDICARE, MEDICAID, SELFPAY ==
--- OUTSIDE RECORDS SUMMARY | 2024-12-27 14:42 | XMS_ITS | Data Portability ---
Author Organization [facility] Address [address] [place] [id number] Care Team Providers Care Manager Cargo Name Role Phone MARISELA MARSHALL Referring Provider [...] symptoms of lung cancer)? YES [email or web address], [place], [address], 3 10:44:45 Medication Orders Stiolto Respimat 2.5 mcg-2.5 mcg/actuati on solution for inhalation 2022 023 [facility] [address] [place], [address], 3 10:25:21 albuterol sulfate HFA 90 mcg/actuati on aerosol inhaler 2022 023 [facility] [address] [place], [address], 3 10:25:21 Patient TargetsNo targets recorded. Patient InstructionsNo instructions recorded. Reason for Referral None Reported. Results Created Date Observation Date Name Description Value Unit Range Abnormal Flag Note LastModifiedBy Organization Detail LastModifiedTime Result Notes None recorded. Problems Name Problem SNOMED Code Status Onset Date Resolution Date Notes Provider Name and Address Organization Details Recorded Time Pulmonary emphysema 91206457 Active 2022 Not Available [facility] 3 13:26:57 Dyspnea on exertion 74836743 Active 2022 Not Available [facility] 3 13:26:57 Obstructive sleep apnea syndrome 46875202 Active 2022 Not Available [facility] 3 13:26:57 Morbid obesity 412598158 Active 2022 Not Available [facility] 3 13:26:57 Nicotine dependence in remission 762838915 Active 2022 Not Available [facility] 3 13:26:57 Problem Notes None recorded. Procedures Surgical History Date Name Laterality Status Provider Name and Address Organization Details Recorded Time total hysterectomy completed [facility] 02/28/2023 10:03:18 Imaging Results None recorded. [...] Details Last Updated DateTime 3 165.1 cm 207243. 75 g 99.6 [degF] 99 % 99 % 73 /min 142 mm[Hg] 89 mm[Hg] Dariel guevara [place] - [facility] - [place] & [place] 3 10:01:46 Social History Question Answer Notes LastModified by Organizat ion Details LastModified Time Tobacco Smoking Status Former Smoker Not Available [facility] 06/27/2023 13:26:58 What Is Your [...] SNOMED-CT Code Diagnosis ICD10 Code Diagnosis Note [id number] Alannah Romano MD [facility] [address] [facility] [address] [place] [address] 02/28/2023 09:52:42 02/28/2023 10:19:05 Pulmonary emphysema 91262498 J43.9 Images and report of chest x-ray [...] p.r.n. basis. Obstructiv e sleep apnea syndrome 85508079 G47.33 Patient instructed to continue with the use of her CPAP regularly and comply with the cleaning instructio ns and supply changes. Morbid obesity 805114655 E66.01 Patient recommende d to diet and exercise in order to lose weight. I entertaine d the idea of bariatric surgery with the patient and she wants to think about it and let me know. Nicotine d ependence in remission 168285309 F17.211 Patient quit smoking about 12 years ago and will continue with annual low-dose CT of the chest testing for early lung cancer detection. Screening for malignant neoplasm of respiratory tract 919210541 Z12.2 The patient has participat ed in [...] Recorded Advance Directives Directive None Recorded Payers Insurance Date Sequence Insurance Name Policy Number Policy Peña Covered Member ID Peña Member ID Guarantor Name 03/10/2024 2 [place]IT[place] Chani Velasquez [id number] Chani Velasquez 03/10/2024 1 [id number] Chani Velasquez [id number] Chani Velasquez Notes Date Note Type Note [...] participating in the cardiac rehab program at [facility] due to coronary artery disease/RCA obstruction. Alannah Romano MD [address] [facility], [place], [address], [facility] - [place] - [place] & [place] 02/28/2023 10:25:41 OBGyn Episode No OBEpisode recorded.
[2024-12-27 16:05] LABS: Basophils % 0.3 % (0.1-2.0); Eosinophils # 0.2 Kmm3 (0.0-0.4); Eosinophils % 1.9 % (0.1-12.0); Hematocrit 37.6 % (37.0-47.0); Hemoglobin 12.2 g/dL (12.2-16.2); Immature Granulocytes # 0.09 10^3uL; Immature Granulocytes % 0.7 %; Lymphocytes # 1.7 K/mm3 (0.7-4.5); Lymphocytes % 13.7 % (10-50); Mean Corpuscular HGB Conc 32.4 g/dL (31.8-35.4); Mean Corpuscular Hemoglobin 31.1 pg (27.0-31.2); Mean Corpuscular Volume 95.9 fl (81-99); Mean Platelet Volume 9.9 fl (7.4-10.4); Monocytes # 1.1 K/mm3 (0.1-1.0); Monocytes % 8.8 % (1.7-9.3); Neutrophils # 9.3 K/mm3 (1.8-7.8); Neutrophils % 74.6 % (37.0-80.0); Nucleated Red Blood Cells # 0 10^3/uL; Nucleated Red Blood Cells % 0 %; Platelet Count 317 K/mm3 (142-424); Red Blood Count 3.92 M/mm3 (4.20-5.40); Red Cell Distribution Width 14.9 % (11.5-17.5); Red Cell Distribution Width-SD 51.8 fL; White Blood Count 12.4 K/mm3 (4.8-10.8)
[2024-12-27 19:08] LABS: Anion Gap 11.6 mEq/L (5-15); Blood Urea Nitrogen 26 mg/dl (7-17); Calcium 9.1 mg/dl (8.4-10.2); Carbon Dioxide 24 mmol/L (22.0-30.0); Chloride 106 mmol/L (98-107); Estimated Glomerular Filt Rate 35 ml/min (>60); GFR (African American) 42 ML/MIN (>60); Glucose 79 mg/dl (74-100); Potassium 4.6 mmoL/L (3.5-5.1); Sodium 137 mmol/L (136-145)
== END 2024-12-27 23:59 | disposition home or self-care (01) ==
LOC: LAB 14:40
PROVIDERS: PCP Family Medicine; Visit Provider Internal Medicine
DX: I13.0 Hypertensive heart and chronic kidney disease with heart failure and stage 1 through stage 4 chronic kidney disease, or unspecified chronic kidney disease (principal); N18.9 Chronic kidney disease, unspecified; I50.30 Unspecified diastolic (congestive) heart failure; Z95.5 Presence of coronary angioplasty implant and graft; E78.5 Hyperlipidemia, unspecified
CPT/HCPCS: 36415; 80048; 85025

== ENCOUNTER 2025-01-08 09:58 | Outpatient (CLI) | payer MEDICARE, MEDICAID, SELFPAY ==
[2025-01-08 11:05] LABS: Chloride 103 mmol/L (98-107); Potassium 4.4 mmoL/L (3.5-5.1); Sodium 136 mmol/L (136-145)
[2025-01-08 11:08] LABS: Blood Urea Nitrogen 29 mg/dl (7-17); Estimated Glomerular Filt Rate 28 ml/min (>60); GFR (African American) 34 ML/MIN (>60)
[2025-01-08 11:09] LABS: Anion Gap 9.4 mEq/L (5-15); Calcium 9.3 mg/dl (8.4-10.2); Carbon Dioxide 28 mmol/L (22.0-30.0); Glucose 105 mg/dl (74-100)
== END 2025-01-08 23:59 | disposition home or self-care (01) ==
LOC: LAB 09:59
PROVIDERS: PCP Family Medicine; Visit Provider Nurse Practitioner Family
DX: I11.0 Hypertensive heart disease with heart failure (principal); I50.33 Acute on chronic diastolic (congestive) heart failure; Z87.891 Personal history of nicotine dependence
CPT/HCPCS: 36415; 80048

== ENCOUNTER 2025-01-17 15:00 | Outpatient (RCR) | payer MEDICARE, MEDICAID, SELFPAY ==
--- NOTE | 2024-12-28 15:53 | HMH.PTOPWND ---
Rehab Outpt Wound Evaluation Rehab OP Wound Evaluation Start: 12/28/24 15:42 Freq: Status: Active Protocol: Document 12/28/24 15:43 SULEMA (Rec: 12/28/24 15:53 PHORBRAVO [id number]) E-signed By Francisco Gunter, PT Subjective/History History History This is the initial PT wound care eval for Chani Velasquez, 64 yowf who presents with chronic L LE wound x ~ 1 yr overall, but worse x 2-3 mos. She is well known to this clinic and improved well previously, but had difficulty making it to her appointments due to transportation issues. She is now using the [facility] transport service which makes attending all of her appointments easier. She reports no c/o pain at this time, but is tender to touch around her L lower leg wound. She has PMH of: FERCHO (obstructive sleep apnea) Pulmonary emphysema Pulmonary hypertension Abnormal findings on diagnostic imaging of heart and coronary circulation Abnormal echocardiogram Hyperkalemia Chronic Kidney Disease Angina pectoris Wound of left leg Coronary artery disease Dyspnea History of smoking 30 or more pack years Encounter for screening for malignant neoplasm of lung Dyspnea on exertion COPD (chronic obstructive pulmonary disease) History of heart block Hyperlipidemia Congestive heart failure Hypertension Subjective Subjective Currently no pain, but at worst her pain is 7/10 in the L lower leg. 2/4 TTP to the wound bed and immediate peter- wound skin. Minimal maceration at the inferior border of her wound noted. L lower leg with 2+ pitting edema and MOD erythema noted. Wound Eval Wound Left Lateral Calf Wound Type Stasis Ulcer Is This a Chronic Wound Yes Wound Length (cm) 10.6 Wound Width (cm) 6.2 Wound Depth (cm) 0.1 Wound Bed Appearance Beefy Red,[place] Percentage Granulated (%) 95 Wound Margins Description Well Defined Surrounding Tissue Appearance Bright Red Edema Type Pitting Edema Degree 2+ Query Text:1+ Trace, Barely Detectable, Rebound 15-30 seconds 2+ Moderate, Slight Indentation, Rebound 10-20 seconds 3+ Deep, Deeper Indentation, Rebound > 30 seconds 4+ Very Deep, Rebound > 60 seconds Edema Appearance Weeping,Puffy Drainage Description Purulent Drainage Amount Moderate Drainage Odor No Odor Wound Topical Solution/Irrigant Saline Irrigant Primary Dressing Silver Dressing Comment opticell Ag Wound Secondary Dressing Type Absorbant Pad Comment qwick, 2 layer zinc compression wrap system Wound Debridement Method Gauze,Mechanical Wound Debridement Amount of Tissue Minimal Removed Dressing Change Patient Tolerance Tolerated Well Meyers-Segundo Wound Assessment Tool Assessment Wound size 4=Length x Width 36.1--<80 sq cm Wound depth 2=Partial thickness skin loss involving epidermis &/or dermis Wound edges 2=Distinct, outline clearly visible, attached, even with wound base Wound undermining 1=None present Necrotic tissue type 2=White/kiran non-viable tissue &/or non-adherent yellow slough Necrotic tissue amount 2=<25% of wound bed covered Exudate type 5=Purulent: thin or thick, opaque, long/yellow, withour without odor Exudate amount 4=Moderate Skin color surrounding wound 2=Bright red &/or blanches to touch Peripheral tissue edema 5=Crepitus and/or pitting edema extends > or = 4 cm around wound Peripheral tissue induration 1=None present Granulation tissue 2=Bright, beefy red;75% to 100 % of wound filled &/or tissue overgrowth Epithelialization 5= < 25% wound covered Wound assessment total score 37 Wound Problems/Impairments Impairments Problems/Impairmments Palpation Tenderness,Impaired Endurance,Impaired Transfers, Impaired Gait Pattern,Impaired Walking,Impaired Standing, Impaired Shower/Bathing, Impaired Household Care, Increased Edema,Lymphedema Present,Wound Care Needs, Subjective C/O Pain,Impaired Self Care/Self Management Prognosis Rehab Potential Good Comment Skilled therapy is indicated to reduce overall wound surface area in order to increase healing and aid pt return to PLOF with all ADLs. Clinical Impression Consistent with Diagnosis Yes Short Term Goals Number of Weeks 4 Decreased Palpation Tenderness Yes: 1/4 L lower leg Decrease Wound Area Yes: by 25% Applications Engineer Goals Number of Weeks 8 Decreased Palpation Tenderness Yes: 0/4 L lower leg Decrease Wound Area Yes: by 75% Decrease Subjective C/O Pain Yes: 4/10 at worst L lower leg Patient to be Ind w/ Advanced HEP Yes Outpatient Therapy Plan of Care Treatment Plan May Include Therapeutic Exercise Including Home Yes Exercise Program Manual Therapy Techniques Yes Neuromuscular Re-education Yes Therapeutic Activities to Return to Yes Previous Functional/Work Level ADL/Self Care Education Yes Orthotics/Bracing/Splinting Yes Manual Lymphatic Drainage Yes Wound Care Yes Eval/Re-Eval Yes Frequency Times per week 2 Duration Number of Weeks 8 Addendums This patient is a candidate for social No or vocational rehab? Patient/Guardian verbally acknowledges Yes understanding of treatment program and consents to further treatment? Patient/Guardian verbally acknowledges Yes understanding of diagnosis, prognosis and goals for treatment? Eval Complexity PT Charges 94031 - High Complexity PHYSICIAN CERTIFICATION: I certify the specified therapy services for Chani Velasquez are required, authorized, and reviewed every 30 days.
== END 2025-01-17 23:59 | disposition home or self-care (01) ==
LOC: PT 15:00
PROVIDERS: PCP Family Medicine; Visit Provider Nurse Practitioner
DX: S91.009A Unspecified open wound, unspecified ankle, initial encounter (principal); X58.XXXA Exposure to other specified factors, initial encounter
CPT/HCPCS: 97163; 97597; 97598

== ENCOUNTER 2025-02-15 10:01 | Outpatient (CLI) | payer MEDICARE, MEDICAID, SELFPAY ==
--- OUTSIDE RECORDS SUMMARY | 2025-02-15 10:06 | XMS_ITS | Encounter Summary ---
Author Organization [facility] Init iatives Address [address] [place] [address] Care Team Providers Care Adjunct Instructor In Economics Name Role Phone Yuan Mccracken MD Primary Care Provider [phone] Encounter Details Date Type Department Care Team (Late st Contact Info) Description 01/16/2021 Transcribed Document [facility] [place] Family Medicine [address] [place] [address] ProviderPerry MD [address] [place], [place] [id number] Social History Tobacco Use Types Packs/Day Years Used Date Smoking Tobacco: Never Assessed Comments Unknown Sex and Gender Information Value Date Recorded Sex Assigned at Not on file Legal Sex Female 12:32 PM CDT Gender Identity Not on file Sexual Orientation Not on file documented as of this encounter Miscellaneous Notes * Cerner Conversion Note - Perry Nunes MD - 01/16/2021 7:20 PM CDT ED Event Note Entered On: 01/16/2021 20:43 EDT Performed On: 01/16/2021 19:20 EDT by JENNY CHAN RN ED Event Note ED Event Date/Time : 01/16/2021 19:20 EDT ED Event Location : Assigned room ED Event Details : Nursing assessment additional narrative ED Description of Event : RN entered room to introduce self and assess pt. pt. had labored breathing at a rate of 44 BPM, Sp02 at 94%. RN applied NC at 4L. Sp02 colby to 98% and RR was 25. RN gave pt. complete bed bath. excoriation noted under bilateral breasts and under panus. after bathing barrier cream applied to all excoriated areas. RN assessed necrosis, purulent drainage, foul odor and non-intect skin circumfirentally on BLE from mid-calf down. pt. stated i dont see doctors, i just wrap it myself. if started as one blister and just got worse . RN informed PA. PA stated to leave BLE wounds open. RN redressed pt. pt. tolerated bed bath well. vital signs stable. will conitnue to monitor. JENNY CHAN RN - 01/16/2021 20:38 EDT Electronically signed by Carlotta [facility] Conversion Sterile Process Tech Cerner at 12/07/2022 6:05 PM CDT documented in this encounter Plan of Treatment Not on file documented as of this encounter Visit Diagnoses Not on filedocumented in this encounter Care Teams Adjunct Instructor In Economics Relationship Specialty Start Date End Date Yuan Mccracken MD [address] [place] [id number] PCP - General Family Medicine 09/23/22 documented as of this encounter
--- OUTSIDE RECORDS SUMMARY | 2025-02-15 10:06 | XMS_ITS | Encounter Summary ---
Author Organization [facility] Init iatives Address [address] [place] [address] Care Team Providers Care Detention Worker Name Role Phone Yuan Mccracken MD Primary Care Provider [phone] Encounter Details Date Type Department Care Team (Late st Contact Info) Description 01/16/2021 Transcribed Document [facility] [place] Family Medicine [address] [place] [address] ProviderPerry MD [address], [place] [id number] Social History Tobacco Use Types Packs/Day Years Used Date Smoking Tobacco: Never Assessed Comments Unknown Sex and Gender Information Value Date Recorded Sex Assigned at Not on file Legal Sex Female 12:32 PM CDT Gender Identity Not on file Sexual Orientation Not on file documented as of this encounter Miscellaneous Notes * Cerner Conversion Note - Perry Nunes MD - 01/16/2021 5:30 PM CDT Broset Violence Assessment Entered On: 01/16/2021 17:40 EDT Performed On: 01/16/2021 17:40 EDT by Dulce Miller RN Broset Violence Assessment Broset Violence Checklist of Symptoms : None Broset Violence Symptoms Subtotal : 0 Broset Violence Symptoms Indicator : Low risk (0) Dulce Miller RN - 01/16/2021 17:40 EDT Electronically signed by Carlotta [facility] Conversion [employer] Research Associate Cerner at 12/07/2022 6:10 PM CDT documented in this encounter Plan of Treatment Not on file documented as of this encounter Visit Diagnoses Not on filedocumented in this encounter Care Teams Detention Worker Relationship Specialty Start Date End Date Yuan Mccracken MD [facility] [place] [address] PCP - General Family Medicine 09/23/22 documented as of this encounter
--- OUTSIDE RECORDS SUMMARY | 2025-02-15 10:06 | XMS_ITS | Encounter Summary ---
Author Organization [facility] [employer] Init iatives Address [address] [place] [address] Care Team Providers Care Director Of Occupational Therapy Name Role Phone Yuan Mccracken MD Primary Care Provider [phone] Encounter Details Date Type Department Care Team (Late st Contact Info) Description 01/16/2021 Transcribed Document [facility] [place] Family Medicine [address] [place] [address] ProviderPerry MD [address], [place] [id number] Social History Tobacco Use Types Packs/Day Years Used Date Smoking Tobacco: Never Assessed Comments Unknown Sex and Gender Information Value Date Recorded Sex Assigned at Not on file Legal Sex Female 12:32 PM CDT Gender Identity Not on file Sexual Orientation Not on file documented as of this encounter Miscellaneous Notes * Cerner Conversion Note - Perry Nunes MD - 01/16/2021 5:39 PM CDT Nutrition Assessment Entered On: 01/19/2021 9:13 EDT Performed On: 01/19/2021 9:13 EDT by Tonie Billings Dietitian Nutrition Assessment Current Nutrition Regimen Comment : Tonie Billings Dietitian - 01/19/2021 11:05 EDT Nutrition Assessment Reason : Automatic referral Tonie Billings Dietitian - 01/19/2021 9:13 EDT Nutrition Recommendations Dietitian Recommendations : 01/19: Rec'd consult for BMI>40 (BMI=44.4). Pt is a 60 yo F admitted for SOA x 2-3 wks and dx of life threatening hyperkalemia, severe metabolic acidosis, ARF, BLE cellulitis, dyspnea. No known PMH. Renal US showed L hydronephrosis; nephrology following w/ no recommendation for HD at this time. Meds/labs reviewed. BUN 70, Cr 1.9 (improving from admission). BLE 1-3+ edema. LBM /29 x 2. Arterial insufficiency related ulcer to LLE (open to air) w/ MASD to breasts, abd, thighs, and sacrum. Pt on regular diet and eating ~38% x [address] to add Ensure BID for now and rescreen in 3-4 days to monitor intakes/ONS use. Nutrition Care Level : No nutritional risk Tonie Billings, Dietitian - 01/19/2021 11:05 EDT documented in this encounter Plan of Treatment Not on file documented as of this encounter Visit Diagnoses Not on filedocumented in this encounter Care Teams Director Of Occupational Therapy Relationship Specialty Start Date End Date Yuan Mccracken MD [facility] [place] [address] PCP - General Family Medicine 09/23/22 documented as of this encounter
--- OUTSIDE RECORDS SUMMARY | 2025-02-15 10:06 | XMS_ITS | Encounter Summary ---
Author Organization [employer] In iatives Address [address] [place] [address] Care Team Providers Care Curator Medical Museum Name Role Phone Yuan Mccracken MD Primary Care Provider [phone] Encounter Details Date Type Department Care Team (Late st Contact Info) Description 01/27/2021 Transcribed Document [facility] [place] [address] [place] [address] ProviderPerry MD [address] [place] [address] Social History Tobacco Use Types Packs/Day Years Used Date Smoking Tobacco: Never Assessed Comments Unknown Sex and Gender Information Value Date Recorded Sex Assigned at Not on file Legal Sex Female 12:32 PM CDT Gender Identity Not on file Sexual Orientation Not on file documented as of this encounter Miscellaneous Notes * Cerner Conversion Note - Perry Nunes MD - 01/27/2021 8:59 AM CDT Patient: CHANI VELASQUEZ Age: 60 years Sex: Female : 1960 Associated Diagnoses: None Author: Andria Lan, Pharmacist-Resident HPI: 60yo female presented with progressive dyspnea, erythema of the legs, with RLE cellulitis starting on vancomycin. PMH includes MISHA-CKD, nephrolithiasis, and chronic LE edema. Rx asked to follow for vancomycin dosing. BMI BMI: 44.4 Weight: 117.2kg - Bed scale Height: 162.56cm (5ft ) - Stated Consult: Vancomycin Indication: LE cellulitis Consulting: Dr. Mares (ID) Goal trough: 10-15 Current ABX 1. Vancomycin per RX 2. Doxycycline 100mg PO BID 3. Zosyn 3.375g IV q6h Vitals Signs (last 24 hrs) Last Charted Minimum Maximum Temp 98.2 (TOM 08 05:29) 97.3 (TOM 07 20:32) 98.2 (TOM 07 17:52) Apical HR 74 (TOM 08 08:36) 72 (TOM 07 20:38) 74 (TOM 08 08:36) Mon HR 66 (TOM 08 08:52) 61 (TOM 07 23:56) 74 (TOM 07 17:52) Resp Rate 16 (TOM 08 08:52) 16 (TOM 08 08:46) 18 (TOM 07 12:21) SBP 112 (TOM 08 05:29) 112 (TOM 08 05:29) H 142 (TOM 07 17:52) DBP 65 (TOM 08 05:29) 63 (TOM 07 12:21) 81 (TOM 07 17:52) MAP 82 (TOM 08 05:29) 80 (TOM 07 12:21) 96 (TOM 07 17:52) SpO2 99 (TOM 08 08:46) 95 (TOM 08 05:29) 100 (TOM 07 12:21) Labs: Labs (Last four charted values) WBC H 10.8 (TOM 08) H 11.6 (TOM 07) H 12.4 (TOM 06) H 13.0 (TOM 05) HB L 7.9 (TOM 08) L 8.3 (TOM 07) L 8.0 (TOM 06) L 8.4 (TOM 05) HCT L 26.4 (TOM 08) L 27.7 (TOM 07) L 26.8 (TOM 06) L 29.0 (TOM 05) Plt H 424 (TOM 08) H 414 (TOM 07) H 392 (TOM 06) H 399 (TOM 05) Na 139 (TOM 08) 141 (TOM 07) 137 (TOM 06) 137 (TOM 05) K 4.6 (TOM 08) 4.5 (TOM 07) 4.5 (TOM 06) 4.4 (TOM 05) Cl 110 (TOM 08) 110 (TOM 07) 110 (TOM 06) 109 (TOM 05) CO2 23 (TOM 08) 24 (TOM 07) 21 (TOM 06) 24 (TOM 05) BUN 22 (TOM 08) 22 (TOM 07) H 23 (TOM 06) H 26 (TOM 05) Cr H 1.30 (TOM 08) H 1.40 (TOM 07) H 1.30 (TOM 06) H 1.40 (TOM 05) Glu R 80 (TOM 08) 81 (TOM 07) 86 (TOM 06) H 124 (JAN 05) Ca L 8.1 (TOM 08) L 8.3 (TOM 07) L 7.9 (TOM 06) L 7.9 (TOM 05) Lactic 2.0 (JANUARY 19) C 2.5 (JANUARY 17) C 2.3 (JANUARY 17) C 2.6 (JANUARY 16) PT 11.9 (JAN 20) INR 1.1 (JAN 20) AST 16 (TOM 08) 20 (TOM 06) 25 (TOM 05) H 50 (JANUARY 19) ALT 18 (TOM 08) 21 (TOM 06) 28 (TOM 05) 36 (JANUARY 19) ALK P 56 (JAN 08) 53 (TOM 06) 57 (TOM 05) 86 (JANUARY 19) T Bili 0.4 (TOM 08) 0.9 (TOM 06) 0.5 (TOM 05) 0.5 (JANUARY 19) PTN L 6.0 (TOM 08) L 5.9 (TOM 06) L 6.3 (TOM 05) L 6.2 (JANUARY 19) ALB L 1.5 (TOM 08) L 1.5 (TOM 06) L 1.5 (TOM 05) L 1.4 (JANUARY 19) Troponin <0.015 (JANUARY 16) wt. 117kg Est CrCl = 57ml/min/m2 Intake & Output Totals Last 24 Hours (7a-7a) Input Total: 532.96 mL Output Total: 3000 mL Balance: -2467.04 mL C/x -01/18 Sputum - Corynebacterium Vanc Levels 01/23 @1704 =14.4 (drawn ~1 late, on vanc 1750mg q24h) 01/26 @ 1500 = 21.7 A/P 1. Trough back supratherapeutic at 21.7, decrease dose to 1250mg (10.6mg/kg) q24h to target a trough of 10-20. - If SCr continues to worsen tomorrow, will plan to obtain vanc random tomorrow to avoid worsening renal function as patient MISHA-CKD 2. Trough level prior to dose on 01/29 @ 0900, Hold if >21 3. Other meds adjusted appropriately at this time, will monitor for changes. Thank you, Andria Lan, PharmD Resident [phone] Electronically signed by Carlotta [facility] Conversion Counselor Dormitory Cerner at 12/07/2022 6:02 PM CDT documented in this encounter Plan of Treatment Not on file documented as of this encounter Visit Diagnoses Not on filedocumented in this encounter Care Teams Curator Medical Museum Relationship Specialty Start Date End Date Yuan Mccracken MD [facility] [place] [address] PCP - General Family Medicine 09/23/22 documented as of this encounter
--- OUTSIDE RECORDS SUMMARY | 2025-02-15 10:06 | XMS_ITS | Encounter Summary ---
Author Organization [employer] [facility] [employer] Address [address] [place] [address] Care Team Providers Care Weighmaster Lead Name Role Phone Yuan Mccracken MD Primary Care Provider [phone] Encounter Details Date Type Department Care Team (Late st Contact Info) Description 01/16/2021 Transcribed Document [facility] [place] [facility] [place] [address] ProviderPerry MD [address] [place] [address] Social History Tobacco Use Types Packs/Day Years Used Date Smoking Tobacco: Never Assessed Comments Unknown Sex and Gender Information Value Date Recorded Sex Assigned at Not on file Legal Sex Female 12:32 PM CDT Gender Identity Not on file Sexual Orientation Not on file documented as of this encounter Miscellaneous Notes * Cerner Conversion Note - Perry Nunes MD - 01/16/2021 10:37 PM CDT DATE OF CONSULTATION: REASON FOR CONSULTATION: Consulted for, 1. Acute renal failure. 2. Acidosis. 3. Hyperkalemia. Admitted for shortness of breath, cellulitis of lower extremity, lower extremity edema. HISTORY OF PRESENTING ILLNESS: The patient is a 60-year-old female, who had some history of chronic kidney disease in the past, has not seen her primary care physician for sometime. She presented feeling sick. She has not been on any medication at home, she was hyperventilating, and extensive lower extremity edema with redness and draining. She has been living at home with the family, mostly not doing anything. Hence, she decided to come to the ER for further evaluation. On arrival, it was made note that the patient has severe metabolic acidosis, hyperkalemia, and acute kidney failure, high BUN. The patient has been admitted for further workup. The patient received IV bicarb, IV dextrose and insulin to correct her acidosis and hyperkalemia. She denied any chest pain, any abdominal pain, nausea, vomiting, diarrhea. No fever, chills. No recent headache. No back pain. No epistaxis, hemoptysis, hematemesis. Renal has been consulted because of increasing BUN and creatinine. Baseline creatinine unknown. Since admission from the ER, her potassium has improved, acidosis improved. Creatinine slightly better. Her admission creatinine was 6.5 with a BUN of 139 and potassium 6.8, a bicarb of 8, which has improved now with potassium 5.0, bicarb remains low at 9, BUN of 136, and creatinine down to 5.8. She also had hyperphosphatemia of 8.4. Urine creatinine 3.8, urine sodium of 60. Her white count is 20.7, hemoglobin 10.3, hematocrit 31.5, platelets of 350. UA has trace protein, moderate leukocytes. Her coronavirus COVID-19 was negative. REVIEW OF SYSTEMS: CONSTITUTIONAL: Has some weakness and fatigue ongoing for sometime. SKIN: As noted above with weeping lower extremity. EYES: Negative. HEENT: Negative for any epistaxis, hemoptysis. RESPIRATORY: Positive shortness of breath without hemoptysis. CARDIOVASCULAR: No chest pain with positive peripheral edema. GI: Negative. : No gross hematuria or kidney stones. MUSCULOSKELETAL: As noted above. NEUROLOGICAL: As noted above. PSYCH: Anxiety. ENDOCRINE: Negative. HEMATOLOGICAL: Has anemia. ALLERGIES: No known drug allergies. PAST MEDICAL HISTORY: Unknown at this time, patient is a poor historian, but there is a question of chronic kidney disease that was told to me by the ER nurse practitioner. SURGICAL HISTORY: None. FAMILY HISTORY: None for kidney disease. PHYSICAL EXAMINATION: GENERAL: The patient is awake and alert. Mild anxiety. The patient has been kept in the room with recent bedbugs. SKIN: Warm and dry. [place] areas of weeping are noted with foul smelling. HEENT: Atraumatic, normocephalic head. NECK: Supple. Eyes, conjunctivae normal. EOMI. LUNGS: Regular rate, rhythm. RESPIRATORY: Equal chest movement. No distress. ABDOMEN: Nondistended. : Coulter catheter in place. Urine clear. NEUROLOGICAL: She is awake, alert, oriented, moving extremities. PSYCH: Mild anxiety is noted. DIAGNOSTIC STUDIES: LABORATORY RESULTS: Potassium 5.0, BUN of 136, creatinine 5.8. All other labs as noted above. ABG shows pH of 7.18, prior to treatment with a bicarb of 4.9. PCO2 of 13.2. ASSESSMENT: 1. Acute renal failure versus chronic kidney disease. Etiology is unknown at this time. The patient does have cellulitis and questionable previous history of kidney disease. This may be the recent increase in creatinine, could be infection related cellulitis with third-spacing. Further workup will be done. UA has only trace proteinuria. 2. Hyperventilating secondary to metabolic acidosis. 3. Metabolic acidosis. 4. Hyperkalemia. 5. Cellulitis of leg. 6. Anemia. PLAN: 1. No dialysis is needed at this time. The patient is making some urine. We will continue with a bicarb drip for correction of acidosis that will correct hyperkalemia. 2. Urine labs will be ordered. Renal ultrasound will be done. 3. For cellulitis, IV Rocephin has been started at this time. 4. Iron studies will be done. 5. Intact PTH will be checked. 6. Hyperphosphatemia, likely secondary to chronic kidney disease, although we will check for other labs, CPK at this time. We will follow the patient with physician. /[id number] MD STEPHANIE Mejia/AQ / STEPHANIE / MODL /[id number] documented in this encounter Plan of Treatment Not on file documented as of this encounter Visit Diagnoses Not on filedocumented in this encounter Care Teams Weighmaster Lead Relationship Specialty Start Date End Date Yuan Mccracken MD [address] [place] [phone] PCP - General Family Medicine 09/23/22 documented as of this encounter
--- OUTSIDE RECORDS SUMMARY | 2025-02-15 10:06 | XMS_ITS | Encounter Summary ---
Author Organization [facility] [employer] Address [address] [place] [address] Care Team Providers Care Bridge Worker Name Role Phone Yuan Mccracken MD Primary Care Provider [phone] Encounter Details Date Type Department Care Team (Late st Contact Info) Description 01/20/2021 Transcribed Document [facility] [place] Family Medicine [address] [place] [address] ProviderPerry MD [address] [place], [place] [id number] Social History Tobacco Use Types Packs/Day Years Used Date Smoking Tobacco: Never Assessed Comments Unknown Sex and Gender Information Value Date Recorded Sex Assigned at Not on file Legal Sex Female 12:32 PM CDT Gender Identity Not on file Sexual Orientation Not on file documented as of this encounter Miscellaneous Notes * Cerner Conversion Note - Perry ProviderMD - 01/20/2021 1:43 PM CDT Evaluation, Physical Therapy Entered On: 01/21/2021 9:12 EDT Performed On: 01/21/2021 9:05 EDT by ALFRED RAPHAEL, PT General Information, PT Visit Type, PT : Initial evaluation Patient Orders : Order Date Order Ordering 01/16/2021 19:55 PT Evaluation and Treatment Ordered By: PRINCESS RIVERA MD 01/19/2021 13:18 PT Additional Treatment Ordered By: FRANCISCO MACEDO PT 01/20/2021 13:43 Physical Therapy Eval and Treat Ordered By: ZULEYMA MICHAELS PA-C Active Diagnoses : 01/16/2021 12:00 Acidosis 01/16/2021 12:00 Cellulitis of unspecified part of limb 01/16/2021 12:00 General medical 01/16/2021 12:00 Hyperkalemia 01/16/2021 12:00 Hyperventilation 01/16/2021 12:00 Other disorders of electrolyte and fluid balance, not elsewhere classified 01/16/2021 12:00 Other specified abnormal findings of blood chemistry 01/16/2021 12:00 Shortness of breath Therapy Diagnosis, PT : open area on coccyx Admission Date : 01/16/2021 19:34 Assisted by, PT : Other: Personal Devices : Personal Devices Dentures, upper Assistive Devices : Assistive Devices No Devices Recorded Isolation Maintained : Contact General Information Comment, PT : Admitted with SOA, Acidosis, Renal Failurel, Hyperkalemia, Bilateral LE Cellulitis, Pneumonia, Left Hydornephrosis Obesit ALFRED RAPHAEL, PT - 01/21/2021 9:05 EDT General Status Patient Received Status : Supine in bed Treatment Start Time : 01/21/2021 8:34 EDT Patient Left Status : Supine in bed, RN/PCT informed, Communication board completed, All needs met and within reach RN/PCT Informed Comment : OK to see per RN Treatment End Time : 01/21/2021 9:02 EDT Treatment Time : 28 Minute(s) ALFRED RAPHAEL, PT - 01/21/2021 9:05 EDT History and Environment Living Situation, Therapy : Home Patient Lives With : Other: alone currently due to pt recently discharged from [facility] to a SNF Persons Assisting Patient at Home : Sibling(s), Other: reports my sister lives down the road Professional Skilled Services : None Persons Providing Information : Patient Home Equipment Therapy, PT : Cane, [place] Home Setup : One story Stairs : No Ramp : Yes ALFRED RAPHAEL, PT - 01/21/2021 9:05 EDT Intervention Summary Heart Rate/Pulse Pre-intervention : 78 bpm BP Systolic Pre-intervention : 127 mmHg BP Diastolic Pre-intervention : 61 mmHg O2 Pre-Intervention : 4 L SpO2 Pre-Intervention : 96 % Heart Rate/Pulse Post-intervention : 79 bpm BP Systolic Post-intervention : 151 mmHg BP Diastolic Post-intervention : 77 mmHg O2 Post-Intervention : 4 L SpO2 Post-Intervention : 97 % ALFRED RAPHAEL, PT - 01/21/2021 9:05 EDT Functional Mobility Mobility Grid Bed Roll Left : Rehab Moderate assistance Bed Roll Right : Rehab Maximal assistance (Comment: of 2 [ALFRED RAPHAEL, PT - 01/21/2021 9:05 EDT] ) ALFRED RAPHAEL, PT - 01/21/2021 9:05 EDT Bed Mobility Scooting Device : Rails ALFRED RAPHAEL, PT - 01/21/2021 9:05 EDT Cognition Assessment, PT Orientation : Oriented x 4 Follows Basic Command Assessment : Yes ALFRED RAPHAEL, PT - 01/21/2021 9:05 EDT Edu Topics Physical Therapy Education Grid Wound Care : Needs further teaching ALFRED RAPHAEL, PT - 01/21/2021 9:05 EDT Indication Assesessment, PT Physical Therapy Indicated : Yes PT Problem List : Impaired, wound healing Potential Barriers To Therapy : None evident Rehabilitation Potential : Good ALFRED RAPHAEL, PT - 01/21/2021 9:05 EDT Plan of Care, PT PT Tx Plan/Goals Established w Patient : Yes PT Frequency Rehab : Daily PT Duration Rehab : Fourteen days PT Treatments Planned : Wound care ALFRED RAPHAEL, PT - 01/21/2021 9:05 EDT Short Term Goals Mobility/Bed Mobility STG PT Grid Goal #1 Activity : Supine to sit Assist : Assist, minimal Date to Meet : 01/26/2021 EDT Goal Status : Progressing, continue ALFRED RAPHAEL, PT - 01/21/2021 9:05 EDT Ambulation STG Grid Goal #1 Device : [place], front wheel Distance : 50 ft Assist : Assist, minimal Date to Meet : 01/26/2021 EDT Goal Status : Intial Goal ALFRED RAPHAEL, PT - 01/21/2021 9:05 EDT Other PT STG Grid Goal #1 Goal : Open area to measure 1.5cmX0.8cm Date to Meet : 01/28/2021 EDT Goal Status : Initial goal ALFRED RAPHAEL, PT - 01/21/2021 9:05 EDT Industrial Waste Treatment Technician Goals Mobility/Bed Mobility LTG PT Grid Goal #1 Goal #2 Activity : Supine to sit Sit to stand Assist : Independent, modified Independent, modified Date to Meet : 02/02/2021 EDT 02/02/2021 EDT Goal Status : Progressing, continue Progressing, continue ALFRED RAPHAEL, PT - 01/21/2021 9:05 EDT ALFRED RAPHAEL, PT - 01/21/2021 9:05 EDT Ambulation LTG Grid Goal #1 Device : [place], front wheel Distance : 150 ft Assist : Independent, modified Date to Meet : 02/02/2021 EDT Goal Status : Progressing, continue ALFRED RAPHAEL, PT - 01/21/2021 9:05 EDT Other PT LTG Grid Goal #1 Other : Open area to measure 1cmX0.5cm Date to Meet : 02/04/2021 EDT Goal Status : Initial goal ALFRED RAPHAEL, PT - 01/21/2021 9:05 EDT Treatment Note Subjective Comment : Agreed to PT and helped roll by reaching for rail with right hand. Patient's Response to Treatment : No c/o pain Additional Objective Information : Open area on coccyx was [id number] and was pink. She got a 3 min mist to this area and it was covered with a Sacral Allyvn. Assessment : Needs daily mist Plan for Treatment : Mist Dressing ALFRED RAPHAEL, PT - 01/21/2021 9:05 EDT Pain Assessment Pain Comment : No c/o pain ALFRED RAPHAEL, PT - 01/21/2021 9:05 EDT Image 1 - Images currently included in the form version of this document have not been included in the text rendition version of the form. Anticipated Discharge Needs, OT/PT Anticipated Discharge to : Unable to assess at this time ALFRED RAPHAEL, PT - 01/21/2021 9:05 EDT Electronically signed by Gayle Laguerre Conversion Senior Living Sales Counselor Kathy at 12/07/2022 6:30 PM CDT documented in this encounter Plan of Treatment Not on file documented as of this encounter Visit Diagnoses Not on filedocumented in this encounter Care Teams Bridge Worker Relationship Specialty Start Date End Date Yuan Mccracken MD [address] [place] [phone] PCP - General Family Medicine 09/23/22 documented as of this encounter
--- OUTSIDE RECORDS SUMMARY | 2025-02-15 10:07 | XMS_ITS | Encounter Summary ---
Author Organization [facility] [employer] Address [address] [place] [address] Care Team Providers Care Environmental Services Assistant Name Role Phone Yuan Mccracken MD Primary Care Provider [phone] Encounter Details Date Type Department Care Team (Late st Contact Info) Description 01/16/2021 Transcribed Document [facility] [place] [address] [place] [address] ProviderPerry MD [address] [place] [address] Social History Tobacco Use Types Packs/Day Years Used Date Smoking Tobacco: Never Assessed Comments Unknown Sex and Gender Information Value Date Recorded Sex Assigned at Not on file Legal Sex Female 12:32 PM CDT Gender Identity Not on file Sexual Orientation Not on file documented as of this encounter Miscellaneous Notes * Cerner Conversion Note - Perry Nunes MD - 01/16/2021 10:00 PM CDT Education-Wound Care Entered On: 01/17/2021 6:12 EDT Performed On: 01/16/2021 22:00 EDT by Annamaria Leyva, RN Teaching/Learning Assessment Barriers To Learning : None evident Individuals Taught : Patient Readiness to Learn : Cooperative Baseline Knowledge of Topic : Limited Annamaria Leyva RN - 01/17/2021 6:12 EDT documented in this encounter Plan of Treatment Not on file documented as of this encounter Visit Diagnoses Not on filedocumented in this encounter Care Teams Environmental Services Assistant Relationship Specialty Start Date End Date Yuan Mccracken MD [facility] [place] [phone] PCP - General Family Medicine 09/23/22 documented as of this encounter
--- OUTSIDE RECORDS SUMMARY | 2025-02-15 10:07 | XMS_ITS | Encounter Summary ---
Author Organization [facility] [employer] Address [address] [place] [address] Care Team Providers Care Grades 1 Thru 5 Teacher Name Role Phone Yuan Mccracken MD Primary Care Provider [phone] Encounter Details Date Type Department Care Team (Late st Contact Info) Description 01/16/2021 Transcribed Document [facility] [place] [facility] [place] [address] ProviderPerry MD [address], [place] [id number] Social History Tobacco Use Types Packs/Day Years Used Date Smoking Tobacco: Never Assessed Comments Unknown Sex and Gender Information Value Date Recorded Sex Assigned at Not on file Legal Sex Female 12:32 PM CDT Gender Identity Not on file Sexual Orientation Not on file documented as of this encounter Miscellaneous Notes * Cerner Conversion Note - Perry Nunes MD - 01/16/2021 7:17 PM CDT Patient: CHANI VELASQUEZ Age: 60 years Sex: Female : 1960 Associated Diagnoses: Acidosis; Elevated serum creatinine; Hyperventilating; Blood CO2 decreased; Hyperkalemia; Cellulitis, legs Author: DAWNA GAN PA-C Basic Information Time seen: Date & time 01/16/2021 17:41:00. History source: Patient. Arrival mode: Ambulance. History limitation: None. Additional information: Chief Complaint from Nursing Triage Note : Chief Complaint 01/16/2021 17:33 EDT Chief Complaint Via EMS for SOA x 2-3 weeks, increased 2-3 days. Pt denies medical treatment for years. Rec'd solumedrol 125mg IM and xopenex neb en route. Reports mild chest discomfort on arrival. . History of Present Illness The patient presents with feeling sick and Patient is a very poor historian and has not had medical evaluation in several years. She is on no medication. She reports she is short of breath progressive for couple days. She is hyperventilating and has extensive edema argenis lower extremities that are red/draining.. The onset was: Risk factors consist of obesity. Therapy today: emergency medical services. Associated symptoms: shortness of breath, denies chest pain, denies abdominal pain, denies nausea, denies vomiting, denies fever, denies chills, denies headache, denies dizziness and denies back pain. Review of Systems Constitutional symptoms: Weakness, fatigue. Skin symptoms: Negative except as documented in HPI. Eye symptoms: Negative except as documented in HPI. ENMT symptoms: Negative except as documented in HPI. Respiratory symptoms: Shortness of breath. Cardiovascular symptoms: Peripheral edema. Gastrointestinal symptoms: Negative except as documented in HPI. Genitourinary symptoms: Negative except as documented in HPI. Musculoskeletal symptoms: Negative except as documented in HPI. Neurologic symptoms: Negative except as documented in HPI. Psychiatric symptoms: Anxiety. Endocrine symptoms: Negative except as documented in HPI. Hematologic/Lymphatic symptoms: Negative except as documented in HPI. Allergy/immunologic symptoms: Negative except as documented in HPI. Additional review of systems information: All other systems reviewed and otherwise negative. Health Status Allergies: Allergic Reactions (Selected) No Known Allergies. Past Medical/ Family/ Social History Medical history Unknown. Surgical history: No active procedure history items have been selected or recorded.. Family history: No family history items have been selected or recorded.. Social history: Social & Psychosocial Habits Home/Environment 01/16/2021 Living situation: Home/Independent Tobacco Comment: nonsmoker - 01/16/2021 19:16 - DAWNA GAN PA-C . Problem list: No qualifying data available . Physical Examination Vital Signs Vital Signs/Vital Measures 01/16/2021 18:24 EDT Oxygen Therapy Mode Room air 01/16/2021 18:20 EDT Oxygen Therapy Mode Room air 01/16/2021 18:17 EDT Oxygen Saturation 99 % Oxygen Therapy Mode Room air 01/16/2021 18:14 EDT Oxygen Saturation 99 % 01/16/2021 17:33 EDT Systolic Blood Pressure 136 mmHg Diastolic Blood Pressure 65 mmHg Temperature Source Oral Temperature Mode Fahrenheit Temperature, Fahrenheit 98.7 Deg F Clinical Temperature, C 37.1 Deg C Peripheral Pulse Rate 122 bpm HI Respiratory Rate 44 Breaths/Min HI Oxygen Saturation 98 % Oxygen Therapy Mode Room air . Measurements 01/16/2021 17:33 EDT Height Source Stated Height Entry Format [place] Height/Length, TAMAZIGHT (ft) 5 ft Height/Length TAMAZIGHT 4 Inch CLINICALHEIGHT 162.56 cm [place] Body Weight 54.3 kg Weight Source, ED Critical estimated dosing weight Weight Entry Format [place] Weight Indonesian lb 270 lb CLINICALWEIGHT 122.73 kg Body Surface Area (BSA) 2.22 m2 Body Mass Index 46.4 kg/m2 >HHI . Oxygen Saturation 01/16/2021 18:17 EDT Oxygen Saturation 99 % 01/16/2021 18:14 EDT Oxygen Saturation 99 % 01/16/2021 17:33 EDT Oxygen Saturation 98 % . General: Alert, no acute distress, anxious, ill-appearing, appears unkept/ Bed bugs present. Skin: Warm, dry, pink. Head: Normocephalic. Neck: Supple. Eye: Normal conjunctiva. Ears, nose, mouth and throat: Oral mucosa moist. Cardiovascular: Regular rate and rhythm, No murmur. Respiratory: Breath sounds are equal, Respirations: Tachypneic, respiratory distress mild, shallow. Chest wall: No tenderness, No deformity. Back: Nontender. Musculoskeletal: Normal ROM, normal strength, no deformity, bilateral lower extremity edema/redness scaling skin, weeping. Gastrointestinal: Soft, Nontender, Non distended. Neurological: Alert and oriented to person, place, time, and situation, normal motor observed, normal speech observed. Psychiatric: Cooperative, appropriate mood & affect, normal judgment. Medical Decision Making Differential Diagnosis: Dehydration, electrolyte imbalance, weakness, pneumonia, influenza, urinary tract infection, viral syndrome, anxiety. Documents reviewed: Emergency department nurses' notes. Orders Include Previous Orders (Selected) Inpatient Orders Ordered Aerosol Treatment (RT): Cardiac Monitoring: Consult to Dietitian: ED Fall Risk Documented: ED Sepsis Alert: EKG: Isolation: Kayexalate: 30 Gram, Oral, 1-Time POC Glucose: POC Glucose: Pulse Oximetry Continuous Monitoring: sodium bicarbonate injection 150 mEq + Dextrose 5% in Water intravenous solution 1,000 mL: 100 mL/hour, IntraVENous Ordered (Collected) Respiratory Panel PCR: Ordered (Dispatched) Lactic Acid Level: Ordered (Exam Completed) CR Chest 1 Vw Portable: Ordered (In-Lab) .Automated Differential: Culture Blood: Culture Blood: Completed Ativan: 0.5 mg, Oral, 1-Time Blood Gas (RT): Blood Gas Arterial (ABG): Broset Violence Assessment: CBC w/ Auto Diff: CMP Comprehensive Metabolic Panel: Dextrose 25 grams per amp (adult): 25 Gram, IV Push, 1-Time DuoNeb continuous med: 9 mL, Nebulized Inhalation, 1-Time ED Adult Fall Risk Assessment: ED Adult Triage: ED C-SSRS: ED Clinical Reconciliation: ED Isolation: ED bottle labeler: Lactic Acid Level with Reflex if Indicated: Lasix: 40 mg, IV Push, 1-Time Normal Saline Bolus: 1,000 mL, 1,000 mL/Hr, IV Piggyback, 1-Time ProBNP: Rocephin: 1 Gram, 100 mL/Hr, IV Piggyback, 1-Time Saline Lock Insert: Troponin I Ultra: calcium gluconate: 1 Gram, IV Push, 1-Time insulin regular 100 units/mL human recombinant injectable solution: 10 Units, 0.1 mL, IV Push, 1-Time sodium bicarbonate 50 mEq per amp (adult): 100 mEq, IV Push, 1-Time sodium bicarbonate 650 mg oral tablet: 1,300 mg, 2 Tab, Oral, 1-Time. surveying technician: Normal sinus rhythm. Electrocardiogram: Time 01/16/2021 18:20:00, rate 110, normal sinus rhythm, No ST changes, no ectopy, normal KS & QRS intervals, EP Interp. Results review: All Results 01/16/2021 19:48 EDT Device Comment 1 Glucose POC2 165 mg/dL HI 01/16/2021 18:00 EDT pH Art 7.18 CRIT pCO2 Art 13.2 mmHg CRIT pO2 Art 109.0 mmHg HI HCO3 Art 4.9 mmol/L LOW BE Art -21.2 mmol/L LOW sO2 Art 96.5 % tHb Art 12.6 Gram/dL FHHb 3.5 % NA ctO2 17.1 mmol/L NA Delivery Device Type Art Cannula Temperature, F Art 98.6 Deg F NA Art Blood Gas (ABG) Site Right Radial Acceptable Conrado's Test Art Acceptable Ventilator Mode Art N/A ABG Num of Draw Attempts 2 NA 01/16/2021 17:44 EDT Bordatella pertussis Not Detected Chlamydia pneumoniae Not Detected Mycoplasma pneumoniae Not Detected Bordatella parapertussis Not Detected Adenovirus Not Detected Coronavirus 229E Not Detected Coronavirus HKU1 Not Detected Coronavirus NL63 Not Detected Coronavirus OC43 Not Detected Human metapneumovirus Not Detected Influenza A Not Detected Influenza A H3 Not Detected Influenza A 2008 H1N1 Not Detected Influenza A H1 Not Detected Influenza B Not Detected Parainfluenza 1 Not Detected Parainfluenza 2 Not Detected Parainfluenza 3 Not Detected Parainfluenza 4 Not Detected Respiratory Syncytial Virus Not Detected Rhinovirus/Enterovirus Not Detected SARS-CoV-2 (COVID19 PCR) Not Detected 01/16/2021 17:43 EDT Sodium Level 126 mmol/L LOW Potassium Level 6.8 mmol/L CRIT Chloride Level 101 mmol/L LOW Carbon Dioxide Level 8 mmol/L LOW Anion Gap 24 HI Glucose Level 181 mg/dL HI Blood Urea Nitrogen 139 mg/dL CRIT Creatinine Level 6.50 mg/dL HI eGFR 8 mL/min/1.73m2 LOW eGFR NonAfrican 6 mL/min/1.73m2 LOW Bun/Creatinine 21.4 HI Calcium Level 8.8 mg/dL Protein Total 9.3 Gram/dL HI Albumin Level 2.1 Gram/dL LOW Globulin 7.2 Gram/dL HI A/G Ratio 0.3 LOW Bilirubin Total 0.5 mg/dL Alk Phos 128 Units/Liter AST 28 Units/Liter ALT 23 Units/Liter Lactic Acid Level 2.1 mmol/L CRIT Troponin I Ultra <0.015 ng/mL ProBNP 1,385 pg/mL HI WBC 21.7 K/uL HI RBC 4.28 Million/uL Hgb 11.3 g/dL Hct 35.6 % MCV 83.2 fL MCH 26.4 pg MCHC 31.7 Gram/dL LOW Platelet Count 389 K/uL HI MPV 9.8 fL RDW 16.9 % HI . Chest X-Ray: No acute disease process, interpretation by Emergency Physician. Radiology results: Impression and Plan Diagnosis Acidosis - Admitting, Emergency medicine, Medical Elevated serum creatinine - Admitting, Emergency medicine, Medical Hyperventilating - Admitting, Emergency medicine, Medical Blood CO2 decreased - Admitting, Emergency medicine, Medical Hyperkalemia - Admitting, Emergency medicine, Medical Cellulitis, legs - Admitting, Emergency medicine, Medical Calls-Consults - 01/16/2021 19:15:00 , HARLAN JARA MD-NEP, nephrology, phone call, recommends Recommend bicarb drip in addition to treatment.. Plan Condition: Stable. Orders: Launch Orders Admit/Transfer/Discharge: Admit to Inpatient (Order): Start: 01/16/2021 19:34 EDT, Admit reason: SOA, Acidosis, Renal Failure, hyperkalemia, argenis lower extremity cellulitis, Estimated length of stay 2 Midnights or LONGER, Level of Care: Critical Care Adult, Admitting: PRINCESS RIVERA MD, Launch Orders Consults: Consult to Physician (Order): Start: 01/16/2021 19:34 EDT, Consult to: HARLAN JARA MD-NEP, For elevated creatinine, electrolyte imbalance, [place] Marker Notified by Physician, Group/Instructions: Nephrology. Notes: I certify that the MLP/WELDING MACHINE OPERATOR [employer] performed the services as delegated. , Discussed with Dr. Goss and agrees with plan of care.. documented in this encounter Plan of Treatment Not on file documented as of this encounter Visit Diagnoses Not on filedocumented in this encounter Care Teams Grades 1 Thru 5 Teacher Relationship Specialty Start Date End Date Yuan Mccracken MD [address] [place] [phone] PCP - General Family Medicine 09/23/22 documented as of this encounter
--- OUTSIDE RECORDS SUMMARY | 2025-02-15 10:07 | XMS_ITS | Encounter Summary ---
Author Organization [facility] [employer] Address [address] [place] [address] Care Team Providers Care Director Of Field Coordination Name Role Phone Yuan Mccracken MD Primary Care Provider [phone] Encounter Details Date Type Department Care Team (Late st Contact Info) Description 01/28/2021 Transcribed Document [facility] [place] Family Medicine [address] [place] [address] ProviderPerry MD [address] [place] [address] Social History Tobacco Use Types Packs/Day Years Used Date Smoking Tobacco: Never Assessed Comments Unknown Sex and Gender Information Value Date Recorded Sex Assigned at Not on file Legal Sex Female 12:32 PM CDT Gender Identity Not on file Sexual Orientation Not on file documented as of this encounter Miscellaneous Notes * Cerner Conversion Note - Perry Nunes MD - 01/28/2021 8:19 AM CDT Bronchodilator Assessment Score, RT Entered On: 01/28/2021 8:20 EDT Performed On: 01/28/2021 8:19 EDT by INÉS AMADO CRT Bronchodilator Assessment Score, RT Pulmonary Diagnosis/History : acidosis, cellulitis Home Respiratory Medications : none Home Oxygen Comment : none Home CPAP Comment : none Pulmonary History, Bronchodilator Assessment Score : No pulmonary history Smoking History, Bronchodilator Assessment Score : No smoking history Chest Xray Results, Bronchodilator Assessment Sc : Clear or none Surgical Status, Bronchodilator Assessment Score : No surgery Respiratory Status, Bronchodilator Assessment Sc : Regular pattern - no dyspnea Breath Sounds, Bronchodilator Assessment Score : Diminished with wheezes Oxygen Level, Bronchodilator Assessment Score : 1-2 LPM Cough, Bronchodilator Assessment Score : Strong spontaneous/non-productive Assessment Score, Bronchodilator Assessment Score : 3 INÉS AMADO, SUBWAY TRAIN OPERATOR - 01/28/2021 8:19 EDT Electronically signed by [facility], [facility] Conversion Rubber Production Machine Operator Cerner at 12/07/2022 6:22 PM CDT documented in this encounter Plan of Treatment Not on file documented as of this encounter Visit Diagnoses Not on filedocumented in this encounter Care Teams Director Of Field Coordination Relationship Specialty Start Date End Date Yuan Mccracken MD [address] [place] [phone] PCP - General Family Medicine 09/23/22 documented as of this encounter
--- OUTSIDE RECORDS SUMMARY | 2025-02-15 10:07 | XMS_ITS | Encounter Summary ---
Author Organization [facility] [employer] Address [address] [place] [address] Care Team Providers Care Brick Sorter Name Role Phone Yuan Mccracken MD Primary Care Provider [phone] Encounter Details Date Type Department Care Team (Late st Contact Info) Description 01/27/2021 Transcribed Document [facility] [place] [address] [place] [address] ProviderPerry MD [address] [place], [place] [id number] Social History Tobacco Use Types Packs/Day Years Used Date Smoking Tobacco: Never Assessed Comments Unknown Sex and Gender Information Value Date Recorded Sex Assigned at Not on file Legal Sex Female 12:32 PM CDT Gender Identity Not on file Sexual Orientation Not on file documented as of this encounter Miscellaneous Notes * Cerner Conversion Note - Perry Nunes MD - 01/27/2021 10:20 AM CDT Patient: CHANI VELASQUEZ Age: 60 Years Sex: Female : 1960 Subjective Renal function stable. Excellent response to increased diuretics yesterday. Good UOP. SOB improved. LE edema persistent but improving. Vital Signs T: 36.8 ??C TMIN: 36.3 ??C TMAX: 36.8 ??C HR: 66(Monitored) RR: 16 BP: 112/65 SpO2: 99% Oxygen Settings (Last) Oxygen Therapy Mode: Nasal cannula (01/27/21 08:46:00) Oxygen Flow Rate: 2 Liter/Min (01/27/21 08:53:00) Intake & Output Totals Last 24 Hours (7a-7a) Input Total: 532.96 mL Output Total: 3000 mL Balance: -2467.04 mL Physical Exam General: No acute distress, Elderly WF. Eye: Extraocular movements are intact, Normal conjunctiva. HENT: Normocephalic, OMM dry. Neck: Supple, No jugular venous distention. Respiratory: Respirations are non-labored, Symmetrical chest wall expansion. aduible wheezing. Cardiovascular: Normal rate, Significant + Edema b/l LE Gastrointestinal: Soft, Obese. Genitourinary: + Coulter no palpable bladder.. Integumentary: Warm, Bilateral lower extremities with dressing in place.. Neurologic: Alert, Oriented. Psychiatric: Cooperative, Appropriate mood & affect Assessment/Plan MISHA: Suspect hemodynamic injury plus obstructive uropathy. Baseline creatinine unknown. Renal ultrasound shows mild left hydro with CT scan showing obstructive 6 mm stone. Patient renal function improved wtih fluid earlier and supportive care. Left ureteral obstruction: Mild hydronephrosis seen with UPJ stone 5 mm and 3mm stone. Urology following. Conservative management at this stage Will need stone prevention workup as outpatient. HTN: Blood pressure stable but elevated. Monitor for now. Metabolic acidosis: resolved. Hypokalemia: Getting K supplementation. Excessive K loss with diuretics. Volume: Optimization of volume status with diuretics. Cellulitis: On antibiotics. Afib w RVR Anemia: Hb stable. Recs Continue lasix 40 mg BID. Need to limit Na intake that is predominantly the reason for worsening of recent worsening of volume status. Limit fluid intake to 1.2 liter. Limit Na intake to less than 2.3g/d Monitor renal function. Supplement K and Mag Daily labs. VTE Prophylaxis - Medical Apixaban 5 mg, Oral, Tab, [id number], Routine, Start 01/21/21 10:00:00 EDT, 01/21/21 9:43:00 EDT (EDI BHAT) Medications albuterol-ipratropium 100 mcg-20 mcg/inh inhalation aerosol, 1 Puff, Inhalation, Q4H While Awake, PRN calcium gluconate calcium gluconate + Sodium Chloride 0.9% intravenous solution 100 mL calcium gluconate + Sodium Chloride 0.9% intravenous solution 100 mL doxycycline, 100 mg= 1 Cap, Oral, Q12H Dulcolax Laxative, 5 mg= 1 Tab, Oral, Daily, PRN DuoNeb 0.5 mg-2.5 mg/3 mL inhalation solution, 3 mL, Nebulized Inhalation , RT_Q6H, PRN DuoNeb 0.5 mg-2.5 mg/3 mL inhalation solution, 3 mL, Nebulized Inhalation , RT_Q4H Eliquis, 5 mg= 1 Tab, Oral, [id number] Lac-Hydrin 12% topical lotion, 1 Application, Topical, BID lactobacillus acidophilus, 1 Cap, Oral, BID Lasix, 40 mg= 1 Tab, Oral, BID magnesium sulfate, 2 Gram= 50 mL, IV Piggyback, Daily, PRN magnesium sulfate, 2 Gram= 50 mL, IV Piggyback, Q2H, PRN Melatonin, 1 mg= 1 Tab, Oral, At Bedtime, PRN metoprolol tartrate, 50 mg= 1 Tab, Oral, BID MiraLax, 17 Gram= 1 Packet, Oral, Daily, PRN Mucinex, 600 mg= 1 Tab, Oral, BID, PRN nystatin, [id number] Units= 5 mL, Swish and Swallow , QID Pepcid, 20 mg= 1 Tab, Oral, Daily potassium chloride 10 mEq/50 mL intravenous solution, 10 mEq= 50 mL, IV Piggyback, Q1H, PRN potassium chloride 20 mEq oral tablet, extended release, 40 mEq= 2 Tab, Oral, BID potassium chloride 20 mEq oral tablet, extended release, 20 mEq= 1 Tab, Oral, Q2H, PRN potassium chloride 20 mEq oral tablet, extended release, 60 mEq= 3 Tab, Oral, Q2H, PRN sodium phosphate sodium phosphate Tylenol, 650 mg= 2 Tab, Oral, Q4H, PRN vancomycin + Sodium Chloride 0.9% intravenous solution 250 mL Zofran, 4 mg= 2 mL, IV Push, Q4H, PRN Zosyn + Sodium Chloride 0.9% intravenous solution 100 mL Lab Results Test Name Test Result Date/Time Sodium Level 139 mmol/L 01/27/2021 03:19 EDT Potassium Level 4.6 mmol/L 01/27/2021 03:19 EDT Chloride Level 110 mmol/L 01/27/2021 03:19 EDT Carbon Dioxide Level 23 mmol/L 01/27/2021 03:19 EDT Anion Gap 11 01/27/2021 03:19 EDT Glucose Level 80 mg/dL 01/27/2021 03:19 EDT Blood Urea Nitrogen 22 mg/dL 01/27/2021 03:19 EDT Creatinine Level 1.30 mg/dL (High) 01/27/2021 03:19 EDT eGFR 50 mL/min/1.73m2 (Low) 01/27/2021 03:19 EDT eGFR NonAfrican 42 mL/min/1.73m2 (Low) 01/27/2021 03:19 EDT Bun/Creatinine 16.9 01/27/2021 03:19 EDT Calcium Level 8.1 mg/dL (Low) 01/27/2021 03:19 EDT Protein Total 6.0 Gram/dL (Low) 01/27/2021 03:19 EDT Albumin Level 1.5 Gram/dL (Low) 01/27/2021 03:19 EDT Globulin 4.5 Gram/dL 01/27/2021 03:19 EDT A/G Ratio 0.3 (Low) 01/27/2021 03:19 EDT Bilirubin Total 0.4 mg/dL 01/27/2021 03:19 EDT Alk Phos 56 Units/Liter 01/27/2021 03:19 EDT AST 16 Units/Liter 01/27/2021 03:19 EDT ALT 18 Units/Liter 01/27/2021 03:19 EDT Magnesium Level 2.1 mg/dL 01/27/2021 03:19 EDT Phosphorus 3.9 mg/dL 01/27/2021 03:19 EDT Device Comment 1 Protocols Followed 01/26/2021 17:18 EDT Glucose POC2 83 mg/dL 01/26/2021 17:18 EDT Calcium Ionized 1.09 mmol/L (Low) 01/27/2021 03:19 EDT WBC 10.8 K/uL (High) 01/27/2021 03:19 EDT RBC 2.95 Million/uL (Low) 01/27/2021 03:19 EDT Hgb 7.9 g/dL (Low) 01/27/2021 03:19 EDT Hct 26.4 % (Low) 01/27/2021 03:19 EDT MCV 89.5 fL 01/27/2021 03:19 EDT MCH 26.8 pg 01/27/2021 03:19 EDT MCHC 29.9 Gram/dL (Low) 01/27/2021 03:19 EDT Platelet Count 424 K/uL (High) 01/27/2021 03:19 EDT MPV 10.1 fL 01/27/2021 03:19 EDT RDW 18.1 % (High) 01/27/2021 03:19 EDT Neut % 77.1 % (High) 01/27/2021 03:19 EDT Neut # 8.29 K/uL (High) 01/27/2021 03:19 EDT Lymph % 13.1 % (Low) 01/27/2021 03:19 EDT Lymph # 1.41 x10(3)/uL 01/27/2021 03:19 EDT [place] % 6.4 % 01/27/2021 03:19 EDT [place] # 0.69 K/uL 01/27/2021 03:19 EDT Eos % 1.7 % 01/27/2021 03:19 EDT Eos # 0.18 x10(3)/uL 01/27/2021 03:19 EDT Baso % 0.4 % 01/27/2021 03:19 EDT Baso # 0.04 x10(3)/uL 01/27/2021 03:19 EDT Slide Review No 01/27/2021 03:19 EDT IG# 0.14 x10(3)/uL (High) 01/27/2021 03:19 EDT IG% 1.30 % (High) 01/27/2021 03:19 EDT Vancomycin Trough 21.7 mcg/mL (High) 01/26/2021 14:48 EDT Electronically signed by [facility], [facility] Conversion [employer] Cerner at 12/07/2022 6:30 PM CDT documented in this encounter Plan of Treatment Not on file documented as of this encounter Visit Diagnoses Not on filedocumented in this encounter Care Teams Brick Sorter Relationship Specialty Start Date End Date Yuan Mccracken MD [address] [place] [phone] PCP - General Family Medicine 09/23/22 documented as of this encounter
--- OUTSIDE RECORDS SUMMARY | 2025-02-15 10:07 | XMS_ITS | Encounter Summary ---
Author Organization [facility] Init iatives Address [address] [place] [address] Care Team Providers Care Direct Care Supervisor Name Role Phone Yuan Mccracken MD Primary Care Provider [phone] Encounter Details Date Type Department Care Team (Late st Contact Info) Description 01/16/2021 Transcribed Document [facility] [place] Family Medicine [address] [place] [address] ProviderPerry MD [address] [place], [place] [id number] Social History Tobacco Use Types Packs/Day Years [...] Nunes MD - 01/16/2021 5:30 PM CDT ED Assessment Entered On: 01/16/2021 18:23 EDT Performed On: 01/16/2021 18:20 EDT by Brittany Matos RN ED Quick Look Assessment Level of Consciousness : Alert, Awake Affect/Behavior : Anxious Skin Temperature : Warm Skin Description : Normal for ethnicity Brittany Matos RN - 01/16/2021 18:20 EDT ED General-Functional Assess Information Obtained From : Patient Communication Barrier : None Primary Language : Urdu Any Spiritual/Cultural Needs or Requests : No Currently in Unsafe Situation : No Brittany Matos RN - 01/16/2021 18:20 EDT Social Habits Smoking Status : Never (less than 100 in lifetime; none in last 30 days) Smokeless Tobacco Status : Never Desires Tobacco Cessation Calc : 0 Brittany Matos RN - 01/16/2021 18:20 EDT Social History (As Of: 01/16/2021 18:23:56 EDT) EENT Assessment EENT Assessment WDL : WDL Brittany Matos RN - 01/16/2021 18:20 EDT Cardiovascular ASMT, ED Cardiovascular Assessment WDL : WDL with exceptions (Comment: complains of chest pain from coughing and soa [Brittany Matos RN - 01/16/2021 18:20 EDT] ) Brittany Matos RN - 01/16/2021 18:20 EDT Respiratory Respiratory Assessment WDL : WDL with exceptions (Comment: tachypneic at 40rpm, o2 sat 100% on room air. audible wheezes noted [Brittany Matos RN - 01/16/2021 18:20 EDT] ) Brittany Matos RN - 01/16/2021 18:20 EDT Oxygen Therapy Oxygen Therapy Mode : Room air Brittany Matos RN - 01/16/2021 18:20 EDT Integumentary Assessment Integumentary Assessment WDL : WDL with exceptions (Comment: left lower leg with hardened scabs, swelling and foul odor. right lower leg wheeping copious amounts long drainage, foul odor noted. swelling to bilateral feet/ankles/legs. several bed bugs seen on patient and linens [Brittany Matos RN - 01/16/2021 18:20 EDT] ) Brittany Matso RN - 01/16/2021 18:20 EDT Neurologic ASMT, ED Neurologic Assessment WDL : WDL Brittany Matos RN - 01/16/2021 18:20 EDT documented in this encounter Plan of Treatment Not on file documented as of this encounter Visit Diagnoses Not on filedocumented in this encounter Care Teams Direct Care Supervisor Relationship Specialty Start Date End Date Yuan Mccracken MD [address] [place] [phone] PCP - General Family Medicine 09/23/22 documented as of this encounter
--- OUTSIDE RECORDS SUMMARY | 2025-02-15 10:07 | XMS_ITS | Encounter Summary ---
Author Organization [facility] Init iatives Address [address] [place] [address] Care Team Providers Care Reinforcing Steel Machine Operator Name Role Phone Yuan Mccracken MD Primary Care Provider [phone] Encounter Details Date Type Department Care Team (Late st Contact Info) Description 01/22/2021 Transcribed Document [facility] [place] [address] [place] [address] ProviderPerry MD [address] [place], [place] [id number] Social History Tobacco Use Types Packs/Day Years Used Date Smoking Tobacco: Never Assessed Comments Unknown Sex and Gender Information Value Date Recorded Sex Assigned at Not on file Legal Sex Female 12:32 PM CDT Gender Identity Not on file Sexual Orientation Not on file documented as of this encounter Miscellaneous Notes * Cerner Conversion Note - Perry ProviderMD - 01/22/2021 11:38 AM CDT Evaluation, Physical Therapy Entered On: 01/23/2021 17:06 EDT Performed On: 01/23/2021 15:30 EDT by CESIA WILSON, LORENA General Information, PT Visit Type, PT : Treatment Note Patient Orders : Order Date Order Ordering 01/16/2021 19:55 PT Evaluation and Treatment Ordered By: PRINCESS RIVERA MD 01/19/2021 13:18 PT Additional Treatment Ordered By: FRANCISCO MACEDO PT 01/20/2021 13:43 Physical Therapy Eval and Treat Ordered By: ZULEYMA MICHAELS PA-C 01/21/2021 09:12 PT Additional Treatment Ordered By: ALFRED RAPHAEL, PT 01/22/2021 11:38 Physical Therapy Eval and Treat Ordered By: ECHO DUNN MD-INF 01/23/2021 16:50 PT Additional Treatment Ordered By: CESIA WILSON, PT Active Diagnoses : 01/16/2021 12:00 Acidosis 01/16/2021 12:00 Cellulitis of unspecified part of limb 01/16/2021 12:00 General medical 01/16/2021 12:00 Hyperkalemia 01/16/2021 12:00 Hyperventilation 01/16/2021 12:00 Other disorders of electrolyte and fluid balance, not elsewhere classified 01/16/2021 12:00 Other specified abnormal findings of blood chemistry 01/16/2021 12:00 Shortness of breath Therapy Diagnosis, PT : BLE edema, wounds Onset of Problem, PT : 01/23/2021 EDT Admission Date : 01/16/2021 19:34 Personal Devices : Personal Devices Dentures, upper Assistive Devices : Assistive Devices No Devices Recorded Isolation Maintained : Contact General Information Comment, PT : BLE compression wrap eval CESIA WILSON PT - 01/23/2021 16:51 EDT General Status Patient Received Status : Supine in bed Treatment Start Time : 01/23/2021 15:30 EDT Patient Left Status : Supine in bed, All needs met and within reach Treatment End Time : 01/23/2021 16:19 EDT Treatment Time : 49 Minute(s) CESIA WILSON PT - 01/23/2021 16:51 EDT History and Environment Living Situation, Therapy : Home Patient Lives With : Alone, Other: alone currently due to pt recently discharged from [facility] to a SNF Persons Assisting Patient at Home : Sibling(s), Other: reports my sister lives down the road Professional Skilled Services : None Persons Providing Information : Patient Home Equipment Therapy, PT : Cane, Walker Home Setup : One story Stairs : No Ramp : Yes CESIA WILSON PT - 01/23/2021 16:51 EDT Cognition Assessment, PT Orientation : Oriented x 4 Attention Assessment : Present CESIA WILSON PT - 01/23/2021 16:51 EDT Edu Topics Physical Therapy Education Grid Wound Care : Verbalizes understanding, Returns demonstration, Needs reinforcement WILSON, CESIA, PT - 01/23/2021 16:51 EDT Indication Assesessment, PT Physical Therapy Indicated : Yes PT Problem List : Impaired, wound healing WILSONEDWINCESIA, PT - 01/23/2021 16:51 EDT Plan of Care, PT PT Tx Plan/Goals Established w Patient : Yes PT Treatments Planned : Wound care WILSONCESIA, PT - 01/23/2021 16:51 EDT Short Term Goals Mobility/Bed Mobility STG PT Grid Goal #1 Goal #4 Activity : Supine to sit Assist : Assist, minimal Date to Meet : 01/26/2021 EDT Goal Status : Goal met Date Met : 01/21/2021 EDT Comment : See wound goals for MIST and compression wraps below WILSON CESIA, PT - 01/23/2021 16:51 EDT WILSON CESIA, PT - 01/23/2021 16:51 EDT Ambulation STG Grid Goal #1 Device : Walker, front wheel Distance : 50 ft Assist : Assist, minimal Date to Meet : 01/26/2021 EDT Goal Status : Intial Goal WILSON CESIA, PT - 01/23/2021 16:51 EDT Other PT STG Grid Goal #1 Goal #2 Goal : Open area to measure 1.5cmX0.8cm BLE malleoli will be < 29.0cm Date to Meet : 01/28/2021 EDT 01/28/2021 EDT Goal Status : Progressing, continue Initial goal WILSON CESIA, PT - 01/23/2021 16:51 EDT WILSON CESIA, PT - 01/23/2021 16:51 EDT Administrative Director Goals Mobility/Bed Mobility LTG PT Grid Goal #1 Goal #2 Goal #4 Activity : Supine to sit Sit to stand Assist : Independent, modified Independent, modified Date to Meet : 02/02/2021 EDT 02/02/2021 EDT Goal Status : Progressing, continue Progressing, continue Comment : See wound goals for MIST and compression wraps below WILSON, CESIA, PT - 01/23/2021 16:51 EDT WILSON, CESIA, PT - 01/23/2021 16:51 EDT WILSON, CESIA, PT - 01/23/2021 16:51 EDT Ambulation LTG Grid Goal #1 Device : Walker, front wheel Distance : 150 ft Assist : Independent, modified Date to Meet : 02/02/2021 EDT Goal Status : Progressing, continue WILSON, CESIA, PT - 01/23/2021 16:51 EDT Other PT LTG Grid Goal #1 Goal #2 Other : Open area to measure 1cmX0.5cm BLE fullest calf will be < 51.0cm Date to Meet : 02/04/2021 EDT 02/04/2021 EDT Goal Status : Progressing, continue Initial goal WILSON, CESIA, PT - 01/23/2021 16:51 EDT WILSON, CESIA, PT - 01/23/2021 16:51 EDT Treatment Note Subjective Comment : pt agreed to BLE compression wraps Patient's Response to Treatment : Stable but vocal with pain to touch RLE >LLE Additional Objective Information : Observation: BLE circumferential measurements include: LLE RLE MT head: 25.5cm 26.5cm Malleoli: 31.4cm 31.0cm Fullest Calf: 55.1cm 52.5cm L lower leg with non-viable, brown tissue that appears slightly dry, unattached, and loosely adherent easily pulling away/debrided when washed gently with 4x4 NS soaked 4x4 gauze R lower leg with non-viable, red, glossy slough that appears with copious wound tissues filled with fluid and adherent and with significant hypersensitivy particularly at proximal ankle and posterior region; noted small wound on R lateral ankle and will cont to observe and treat as needed Treatment: 1. Placed chux and towels around periphery of LE under BLE; poured NS from bottle and washed gently with pre-soaked with NS 4x4 gauzes to cleanse BLE 2. Gently lathering Ammonium lactate to BLE 3. Applied Aquacel Ag pads (3) to anterior/posterior BLE - may benefit from (4) next visit 4. Applied ABD pads (3) to ea LE 5. Gently wrapped LE with Kerlix and secured with Surepress - Surepress was not stretched to it's fullest effective form Assessment : pt with marked BLE wounds throughout skin with removal brown slough on LLE and red/adherent slough on RLE; the emphasis of the Surepress (lightly wrapped) along with Aquacel Ag will be to remove edema to effect an improved healing environment; once there is less edema, perhaps can address the wounds after; will cont to assess Plan for Treatment : due to the high volume of fluid, will change daily for now and reassess CESIA WILSON, PT - 01/23/2021 16:51 EDT Pain Assessment Pain Scaled Used : 0-10 Pain scale Pain Comment : vocal to tactile cues to RLE >LLE CESIA WILSON, PT - 01/23/2021 16:51 EDT Image 1 - Images currently included in the form version of this document have not been included in the text rendition version of the form. documented in this encounter Plan of Treatment Not on file documented as of this encounter Visit Diagnoses Not on filedocumented in this encounter Care Teams Reinforcing Steel Machine Operator Relationship Specialty Start Date End Date Yuan Mccracken MD [address] [place] [phone] PCP - General Family Medicine 09/23/22 documented as of this encounter
--- OUTSIDE RECORDS SUMMARY | 2025-02-15 10:07 | XMS_ITS | Encounter Summary ---
Author Organization [facility] Init iatives Address [address] [place] [address] Care Team Providers Care Guyline Operator Name Role Phone Yuan Mccracken MD Primary Care Provider [phone] Encounter Details Date Type Department Care Team (Late st Contact Info) Description 01/27/2021 Transcribed Document [facility] [place] Family Medicine [address] [place] [address] ProviderPerry MD [address] [place] [address] Social History Tobacco Use Types Packs/Day Years Used Date Smoking Tobacco: Never Assessed Comments Unknown Sex and Gender Information Value Date Recorded Sex Assigned at Not on file Legal Sex Female 12:32 PM CDT Gender Identity Not on file Sexual Orientation Not on file documented as of this encounter Miscellaneous Notes * Cerner Conversion Note - Perry Nunes MD - 01/27/2021 8:41 AM CDT UM Authorization Entered On: 01/27/2021 8:41 EDT Performed On: 01/27/2021 8:41 EDT by DWIGHT PERALTA RN-Utilization Review Primary Insurance Authorization Authorization and Policy Numbers : Insurance 1 Health Plan: MEDICAID PENDING Policy Number: [id number] Authorization Number: Insurance Primary Name : MEDICAID PENDING Policy Number: [id number] Authorized Service Begin Date-Primary : 01/16/2021 EDT Authorization Comments-Primary : MEDICAID PENDING Historical Authorization Comments-Primary : Comment 1: MEDICAID PENDING (DWIGHT PERALTA, RN-Utilization Review 01/26/2021 08:45) Comment 2: MEDICAID PENDING (DWIGHT PERALTA, RN-Utilization Review 01/23/2021 09:42) Comment 3: SELF PAY (DWIGHT PERALTA, RN-Utilization Review 01/22/2021 08:29) Comment 4: SELF PAY (DWIGHT PERALTA, RN-Utilization Review 01/21/2021 08:19) Comment 5: Self pay at the time of review (CARMEN MARLOW RN 01/20/2021 13:51) DWIGHT PERALTA, RN-Utilization Review - 01/27/2021 8:41 EDT documented in this encounter Plan of Treatment Not on file documented as of this encounter Visit Diagnoses Not on filedocumented in this encounter Care Teams Guyline Operator Relationship Specialty Start Date End Date Yuan Mccracken MD [address] [place] [phone] PCP - General Family Medicine 09/23/22 documented as of this encounter
--- OUTSIDE RECORDS SUMMARY | 2025-02-15 10:07 | XMS_ITS | Encounter Summary ---
Author Organization [facility] Init iatives Address [address] [place] [address] Care Team Providers Care Brake Repairer Name Role Phone Yuan Mccracken MD Primary Care Provider Encounter Details Date Type Department Care Team (Late st Contact Info) Description 01/26/2021 Transcribed Document [facility] [place] [facility] [place] [address] ProviderPerry MD [address] [place] [address] Social History Tobacco Use Types Packs/Day Years Used Date Smoking Tobacco: Never Assessed Comments Unknown Sex and Gender Information Value Date Recorded Sex Assigned at Not on file Legal Sex Female 12:32 PM CDT Gender Identity Not on file Sexual Orientation Not on file documented as of this encounter Miscellaneous Notes * Cerner Conversion Note - Perry Nunes MD - 01/26/2021 3:09 PM CDT Patient Resource Center Entered On: 01/26/2021 15:11 EDT Performed On: 01/26/2021 15:09 EDT by Mallorie Betancur, Clinical Assistant Professor Patient Resource Center Provider Status : No Assigned Primary Care Established Provider Name : NO PCP Patient Phone Number : [phone] Patient Insurance Type : Insurance pending Source of Referral : Case management Location of Patient : Case management referral Primary Care Scheduled : No Specialty Care Scheduled : No Qualify for Diabetes and/or Nutrition Referral : No Wound Care Appointment Made : No Why Patient Visited ED- Specialty spent : Other How Patient Arrived at ED : Other Primary Language : Montenegrin Patient Resource Center Comment : Patient needs a PCP. Called and spoke to patient and she states she would like a PCP in [place]. Called Dr. Feliz's office and they state they will not take her as a patient until she receives her card. Called patient back and informed her of instructions. Follow Up Needed : Mallorie Guy, Clinical Assistant Professor - 01/26/2021 15:09 EDT Electronically signed by [facility], [facility] Conversion Cutter Head Sharpener Cerner at 12/07/2022 6:21 PM CDT documented in this encounter Plan of Treatment Not on file documented as of this encounter Visit Diagnoses Not on filedocumented in this encounter Care Teams Brake Repairer Relationship Specialty Start Date End Date Yuan Mccracken MD [address] [place] [phone] PCP - General Family Medicine 09/23/22 documented as of this encounter
--- OUTSIDE RECORDS SUMMARY | 2025-02-15 10:07 | XMS_ITS | Encounter Summary ---
Author Organization [facility] Init iatives Address [address] [place] [address] Care Team Providers Care Hospital Insurance Clerk Name Role Phone Yuan Mccracken MD Primary Care Provider [phone] Encounter Details Date Type Department Care Team (Late st Contact Info) Description 01/26/2021 Transcribed Document [facility] [place] [address] [place] [address] ProviderPerry MD [address] [place], [place] [address] Social History Tobacco Use Types Packs/Day Years Used Date Smoking Tobacco: Never Assessed Comments Unknown Sex and Gender Information Value Date Recorded Sex Assigned at Not on file Legal Sex Female 12:32 PM CDT Gender Identity Not on file Sexual Orientation Not on file documented as of this encounter Miscellaneous Notes * Cerner Conversion Note - Perry Nunes MD - 01/26/2021 11:23 AM CDT Event Note Entered On: 01/26/2021 11:26 EDT Performed On: 01/26/2021 11:23 EDT by GENEVIEVE PENNINGTON RN-NAVIGSAMSON CANCER Event Note Event Date/Time : 01/26/2021 11:23 EDT Event Location : Other: Lung Care Navigation Follow up Description of Event : Call back received from bryan's son - per patient she does not have any primary care physician. Will reach out to patient resource center to request PCP Establishment and will follow up. GENEVIEVE PENNINGTON RN-SIXTOATOR CANCER - 01/26/2021 11:23 EDT Electronically signed by Carl[facility] Conversion Zipper Sewing Machine Operator Cerner at 12/07/2022 6:12 PM CDT documented in this encounter Plan of Treatment Not on file documented as of this encounter Visit Diagnoses Not on filedocumented in this encounter Care Teams Hospital Insurance Clerk Relationship Specialty Start Date End Date Yuan Mccracken MD [address] [place] [phone] PCP - General Family Medicine 09/23/22 documented as of this encounter
--- OUTSIDE RECORDS SUMMARY | 2025-02-15 10:07 | XMS_ITS | Encounter Summary ---
Author Organization [facility] [employer] In iatives Address [address] [place] [address] Care Team Providers Care Endodontist Name Role Phone Yuan Mccracken MD Primary Care Provider [phone] Encounter Details Date Type Department Care Team (Late st Contact Info) Description 01/26/2021 Transcribed Document [facility] [place] [facility] [address] ProviderPerry MD [address] [place], [place] [phone] Social History Tobacco Use Types Packs/Day Years Used Date Smoking Tobacco: Never Assessed Comments Unknown Sex and Gender Information Value Date Recorded Sex Assigned at Not on file Legal Sex Female 12:32 PM CDT Gender Identity Not on file Sexual Orientation Not on file documented as of this encounter Miscellaneous Notes * Cerner Conversion Note - Perry Nunes MD - 01/26/2021 11:09 AM CDT Event Note Entered On: 01/26/2021 11:09 EDT Performed On: 01/26/2021 11:09 EDT by GENEVIEVE PENNINGTON RN-NAVIGATOR CANCER Event Note Event Date/Time : 01/26/2021 11:09 EDT Event Location : Other: Lung Care Navigation Consult. Description of Event : Lung Care Navigation consult order received CT A/P Result reviewed. Patient has 5 mm nodule in Right lower lobe. Called patient and spoke to her Son Mr. Ashley @ [phone]. Son will get PCP Information and will call back LCN so LCN and follow up with PCP. Placed Patient in Lung Care Navigation program. Thanks for consult. GENEVIEVE PENNINGTON, RN-NAVIGATOR CANCER - 01/26/2021 11:09 EDT documented in this encounter Plan of Treatment Not on file documented as of this encounter Visit Diagnoses Not on filedocumented in this encounter Care Teams Endodontist Relationship Specialty Start Date End Date Yuan Mccracken MD [address] [place] [phone] PCP - General Family Medicine 09/23/22 documented as of this encounter
--- OUTSIDE RECORDS SUMMARY | 2025-02-15 10:07 | XMS_ITS | Encounter Summary ---
Author Organization [facility] In iatives Address [address] [place] [address] Care Team Providers Care Tire Debeader Name Role Phone Yuan Mccracken MD Primary Care Provider [phone] Encounter Details Date Type Department Care Team (Late st Contact Info) Description 01/26/2021 Transcribed Document [facility] [address] [place] [address] Casandra Ochoa MD [address] [place] [phone] Social History Tobacco Use Types Packs/Day Years Used Date Smoking Tobacco: Never Assessed Comments Unknown Sex and Gender Information Value Date Recorded Sex Assigned at Not on file Legal Sex Female 12:32 PM CDT Gender Identity Not on file Sexual Orientation Not on file documented as of this encounter Miscellaneous Notes * Cerner Conversion Note - Casandra Ochoa MD - 01/26/2021 8:13 PM EDT Patient: CHANI VELASQUEZ Age: 60 Years Sex: Female : 1960 Subjective Patient seen and examined date of service 01/26/2021. Patient reports having mild shortness of breath which waxes and wanes, though improved at my current time of evaluation. Patient then answered a phone call and did not wish to converse further regarding her care voicing she does not have any medical concerns. Vital Signs T: 36.8 ??C TMIN: 36.6 ??C TMAX: 37.3 ??C HR: 74(Monitored) RR: 18 BP: 142/81 SpO2: 97% Oxygen Settings (Last) Oxygen Therapy Mode: Nasal cannula (01/26/21 12:00:00) Oxygen Flow Rate: 2 Liter/Min (01/26/21 12:00:00) Intake & Output Totals Last 24 Hours (7a-7a) Input Total: 899.97 mL Output Total: 0 mL Balance: 899.97 mL Physical Exam General: [Alert and oriented, well nourished, morbidly obese, no acute distress]. Neurologic: [Awake, alert, and oriented]. Eye: [Normal conjunctiva]. HENT: [Normocephalic, normal hearing, moist oral mucosa, no scleral icterus]. Neck: [Supple, no JVD]. Lungs: [Wheezing in anterior lung singh improving after cough though still mildly present, non-labored respiration]. Heart: [Normal rate, regular rhythm, no murmur, 2/3+ pitting edema in lower legs with weeping chronic wounds bilaterally, 1+ pitting edema in arms bilaterally]. Abdomen: [Soft, non-tender, non-distended though patient is morbidly obese, normal bowel sounds]. Musculoskeletal: [Patient laying in bed without ROM tested]. Skin: [Skin is warm, dry and pink, no rashes]. Psychiatric: [Cooperative, appropriate mood and affect]. Assessment/Plan New onset Atrial Fibrillation with RVR, back in NSR -Cards followed, continue current rate regimen and Eliquis, follow-up outpatient -Keep mag > 2.0, K > 4.0, repleting PRN -Monitor on tele Acute hypoxic respiratory failure, improving -2/2 a fib RVR, fluid overload, and COPD hx, with suspected OHS with BMI 44.4 -On 3L NC to 1L, not on home O2, suspect COPD hx with chronic smoking and wheezing on exam -Scheduled nebs, neph inc diuresis on 01/26 -Continuous oxygen monitoring Corynebacterium Pneumonia of left lung -ID following continue abx, sputum cx + Corynebacterium -CXR noted, left perihilar opacity -Continue scheduled nebs Right lung nodule on CT scan -Repeat CT scan six months per RAD to be done via primary care -Lung care vesta consulted Acute renal failure, improving -Baseline unknown, Cr 6.5 on admission, improving beautifully -Avoid nephrotoxic agents, monitor I/Os, trend renal indices -renal US showed mild left hydro CT scan added: Mild left hydronephrosis from a 5 mm stone in the distal ureter. There is a more proximal nonobstructing 3 mm stone in the distal ureter. -Nephrology following managing diuresis Hypokalemia, resolved with scheduled replacement -Patient very sensitive to diuresis causing extreme output, discussed with nephrology who wished to continue current scheduled potassium replacement at this time -Monitor daily Left hydronephrosis 2/[address]: Mild left hydronephrosis from a 5 mm stone in the distal ureter. There is a more proximal nonobstructing 3 mm stone in the distal ureter. -No pain associated, asymptomatic -Urology consulted, asymptomatic, per urology since ureteral stone not causing pain and renal fxn improving-will watch Lower ext cellulitis, bilateral Chronic lower leg lymphedema -R worse than leg, appears more venous stasis related from chronic edema -LE US neg -GRACIELA/ art dup pending, prelim abnormal graciela so consulted VS -ID following managing abx -Wound care and PT following for wound care -Wound culture positive for Corynebacterium Cholelithiasis per CT scan -Asymptomatic, follow with PCP Obesity -BMI 44.4 -Complicates all aspects of care Bed bug infestation? -Question if patient possibly having bedbugs in home per her verbal report -Discussed with nursing to follow hospital protocol and she has already been here for 7 days at this point without a bug being seen inpatient DVT Prophylaxis: Eliquis Full code DISPO: Deconditioned, lives alone. Need final ID recs. CM investigating SNF, though NSOC complicated by patient not having insurance with medicaid pending. Time spent: 30 minutes. I, Devorah Barr PA-C, personally evaluated the patient forming the plan of care above. Patient discussed with Dr. Ochoa who agrees with the plan of care above. VTE Prophylaxis - Medical Apixaban 5 mg, Oral, Tab, [id number], Routine, Start 01/21/21 10:00:00 EDT, 01/21/21 9:43:00 [...] RT_Q4H Eliquis, 5 mg= 1 Tab, Oral, [id number] Lac-Hydrin 12% topical lotion, 1 Application, Topical, [...] mg= 1 Tab, Oral, BID, PRN nystatin, [id number] Units= 5 mL, Swish and Swallow , [...] vancomycin + Sodium Chloride 0.9% intravenous solution 500 mL Zofran, 4 mg= 2 mL, IV Push, Q4H, PRN Zosyn + Sodium Chloride 0.9% intravenous solution 100 mL Diagnostic Results No Radiology Results Found Lab Results Test Name Test Result Date/Time Sodium Level 141 mmol/L 01/26/2021 04:35 EDT Potassium Level 4.5 mmol/L 01/26/2021 04:35 EDT Chloride Level 110 mmol/L 01/26/2021 04:35 EDT Carbon Dioxide Level 24 mmol/L 01/26/2021 04:35 EDT Anion Gap 12 01/26/2021 04:35 EDT Glucose Level 81 mg/dL 01/26/2021 04:35 EDT Blood Urea Nitrogen 22 mg/dL 01/26/2021 04:35 EDT Creatinine Level 1.40 mg/dL (High) 01/26/2021 04:35 EDT eGFR 46 mL/min/1.73m2 (Low) 01/26/2021 04:35 EDT eGFR NonAfrican 38 mL/min/1.73m2 (Low) 01/26/2021 04:35 EDT Bun/Creatinine 15.7 01/26/2021 04:35 EDT Calcium Level 8.3 mg/dL (Low) 01/26/2021 04:35 EDT Magnesium Level 1.9 mg/dL 01/26/2021 04:35 EDT Phosphorus 3.8 mg/dL 01/26/2021 04:35 EDT Device Comment 1 Protocols Followed 01/26/2021 17:18 EDT Glucose POC2 83 mg/dL 01/26/2021 17:18 EDT Calcium Ionized 1.11 mmol/L (Low) 01/26/2021 04:35 EDT WBC 11.6 K/uL (High) 01/26/2021 04:35 EDT RBC 3.09 Million/uL (Low) 01/26/2021 04:35 EDT Hgb 8.3 g/dL (Low) 01/26/2021 04:35 EDT Hct 27.7 % (Low) 01/26/2021 04:35 EDT MCV 89.6 fL 01/26/2021 04:35 EDT MCH 26.9 pg 01/26/2021 04:35 EDT MCHC 30.0 Gram/dL (Low) 01/26/2021 04:35 EDT Platelet Count 414 K/uL (High) 01/26/2021 04:35 EDT MPV 9.8 fL 01/26/2021 04:35 EDT RDW 17.9 % (High) 01/26/2021 04:35 EDT Neut % 77.6 % (High) 01/26/2021 04:35 EDT Neut # 9.02 K/uL (High) 01/26/2021 04:35 EDT Lymph % 12.7 % (Low) 01/26/2021 04:35 EDT Lymph # 1.47 x10(3)/uL 01/26/2021 04:35 EDT Vernon % 6.7 % 01/26/2021 04:35 EDT Vernon # 0.78 K/uL 01/26/2021 04:35 EDT Eos % 1.5 % 01/26/2021 04:35 EDT Eos # 0.17 x10(3)/uL 01/26/2021 04:35 EDT Baso % 0.3 % 01/26/2021 04:35 EDT Baso # 0.03 x10(3)/uL 01/26/2021 04:35 EDT Slide Review No 01/26/2021 04:35 EDT IG# 0.14 x10(3)/uL (High) 01/26/2021 04:35 EDT IG% 1.20 % (High) 01/26/2021 04:35 EDT Vancomycin Trough 21.7 mcg/mL (High) 01/26/2021 14:48 EDT Electronically signed by [facility] Conversion Juice Standardizer Cerner at 12/07/2022 6:13 PM CDT documented in this encounter Plan of Treatment Not on file documented as of this encounter Visit Diagnoses Not on filedocumented in this encounter Care Teams Tire Debeader Relationship Specialty Start Date End Date Yuan Mccracken MD [address] [place] [phone] PCP - General Family Medicine 09/23/22 documented as of this encounter
--- OUTSIDE RECORDS SUMMARY | 2025-02-15 10:07 | XMS_ITS | Encounter Summary ---
Author Organization [facility] Address [address] [place] [address] Care Team Providers Care Director Federal Name Role Phone Yuan Mccracken MD Primary Care Provider [phone] Encounter Details Date Type Department Care Team (Late st Contact Info) Description 01/21/2021 Transcribed Document [facility] [place] Family Medicine [address] [place] [address] ProviderPerry MD [address] [place], [place] [id number] Social History Tobacco Use Types Packs/Day Years Used Date Smoking Tobacco: Never Assessed Comments Unknown Sex and Gender Information Value Date Recorded Sex Assigned at Not on file Legal Sex Female 12:32 PM CDT Gender Identity Not on file Sexual Orientation Not on file documented as of this encounter Miscellaneous Notes * Cerner Conversion Note - Perry Nunes MD - 01/21/2021 12:23 PM CDT Nutrition Assessment Entered On: 01/21/2021 12:27 EDT Performed On: 01/21/2021 12:23 EDT by Tonie Billinsg Dietitian Nutrition Assessment Nutrition Assessment Reason : Automatic referral Current Nutrition Regimen Comment : 01/21: Rec'd consult for PU>/=stg 2. w/ other discipline during visit. Pt eating okay; RN reports pt can be picky. Took some preferences per RN. Will add Toney and continue to monitor. 01/19: Rec'd consult for BMI>40 (BMI=44.4). Pt is a 60 yo F admitted for SOA x 2-3 wks and dx of life threatening hyperkalemia, severe metabolic acidosis, ARF, BLE cellulitis, dyspnea. No known PMH. Renal US showed L hydronephrosis; nephrology following w/ no recommendation for HD at this time. Meds/labs reviewed. BUN 70, Cr 1.9 (improving from admission). BLE 1-3+ edema. LBM 01/17 x 2. Arterial insufficiency related ulcer to LLE (open to air) w/ MASD to breasts, abd, thighs, and sacrum. Pt on regular diet and eating ~38% x [address] to add Ensure BID for now and rescreen in 3-4 days to monitor intakes/ONS use. Dx: life-threatening hyperkalemia, MISHA, L ureteral obstruction, BLE cellulitis PMH: HTN Meds: abx, Pepcid, nystatin, KCl, abx, mg sulfate prn, KCl prn Labs: K+ 3.2, Glu 111, BUN 34, Cr 1.4, alb 1.4, WBC 20 Skin: WOCN / - coccyx DTPI, LLE ulcer; MASD to breasts, abd, thighs, and sacrum; 2+ LE edema GI: LBM 6/, +BS Diet: regular + ensure BID Intakes: 55% x 7 meals Ht; 64 Wt; 117.2 kg (01/16) BMI: 44.4 IBW: 54.5 kg Tonie Billings Dietitian - 01/21/2021 12:22 EDT Nutrition Diagnoses Nutrient Intake : Increased nutrient needs Nutrient Intake Related to : skin integrity Nutrient Intake As Evidenced by : DTPI coccyx and ulcer to LLE Weight : Obese, Class III Weight Related to : lifestyle Weight As Evidenced by : BMI=44.4 Weight Status : Active Tonie Billings Dietitian - 01/21/2021 12:22 EDT Nutrition Interventions Meals and Snacks : General/Healthful diet Nutrition Supplement Therapy : Commercial beverage Tonie Billings Dietitian - 01/21/2021 12:22 EDT Monitoring/Evaluation Energy Intake : Total energy intake Food Intake : Amount of food Protein Intake : Total protein Weight Status : Weight Maintanence Gastrointestinal Function : Bowel Function Integumentary : Pressure Ulcer Status Tonie Billings Dietitian - 01/21/2021 12:22 EDT Nutrition Recommendations Dietitian Recommendations : 1. Contine regular diet. RD to d/c Ensure (pt eating >50%) and add Toney BID. Goal: >50% PO intake + ONS 2. Monitor elytes and replace prn. Goal: wnls 3. Monitor wt 1-2x/wk. Goal: no uninteded wt changes moderate risk Nutrition Care Level : Moderate Tonie Billings Dietitian - 01/21/2021 12:22 EDT Electronically signed by Carlotta [facility] Conversion Mirror Polisher Cerner at 12/07/2022 6:28 PM CDT documented in this encounter Plan of Treatment Not on file documented as of this encounter Visit Diagnoses Not on filedocumented in this encounter Care Teams Director Federal Relationship Specialty Start Date End Date Yuan Mccracken MD [address] [place] [phone] PCP - General Family Medicine 09/23/22 documented as of this encounter
--- OUTSIDE RECORDS SUMMARY | 2025-02-15 10:07 | XMS_ITS | Encounter Summary ---
Author Organization [facility] Init iatives Address [address] [place] [address] Care Team Providers Care Rehabilitation Services Manager Name Role Phone Yuan Mccracken MD Primary Care Provider [phone] Encounter Details Date Type Department Care Team (Late st Contact Info) Description 01/16/2021 Transcribed Document [facility] Family Medicine [address] [place] [address] ProviderPerry MD [address], [place] [id number] Social History Tobacco Use Types Packs/Day Years Used Date Smoking Tobacco: Never Assessed Comments Unknown Sex and Gender Information Value Date Recorded Sex Assigned at Not on file Legal Sex Female 12:32 PM CDT Gender Identity Not on file Sexual Orientation Not on file documented as of this encounter Miscellaneous Notes * Cerner Conversion Note - Perry Nunes MD - 01/16/2021 7:15 PM CDT ED Event Note Entered On: 01/16/2021 20:38 EDT Performed On: 01/16/2021 19:15 EDT by JENNY CHAN RN ED Event Note ED Event Date/Time : 01/16/2021 19:15 EDT ED Event Location : Assigned room ED Event Details : Nursing assessment additional narrative ED Description of Event : assumed care of pt. at this time JENNY CHAN RN - 01/16/2021 20:38 EDT documented in this encounter Plan of Treatment Not on file documented as of this encounter Visit Diagnoses Not on filedocumented in this encounter Care Teams Rehabilitation Services Manager Relationship Specialty Start Date End Date Yuan Mccracken MD [address] [place] [phone] PCP - General Family Medicine 09/23/22 documented as of this encounter
--- OUTSIDE RECORDS SUMMARY | 2025-02-15 10:07 | XMS_ITS | Encounter Summary ---
Author Organization [facility]atives Address [address] [place] [address] Care Team Providers Care Log Roper Name Role Phone Yuan Mccracken MD Primary Care Provider [phone] Encounter Details Date Type Department Care Team (Late st Contact Info) Description 01/28/2021 Transcribed Document [facility] [place] Family Medicine [address] [place] [address] ProviderPerry MD [address], [place] [address] Social History Tobacco Use Types Packs/Day Years Used Date Smoking Tobacco: Never Assessed Comments Unknown Sex and Gender Information Value Date Recorded Sex Assigned at Not on file Legal Sex Female 12:32 PM CDT Gender Identity Not on file Sexual Orientation Not on file documented as of this encounter Miscellaneous Notes * Cerner Conversion Note - Perry Nunes MD - 01/28/2021 5:59 PM CDT MEWS Score Entered On: 01/28/2021 17:59 EDT Performed On: 01/28/2021 17:59 EDT by Sienna Simmons, Oncology Nurse Navigator-Nursing MEWS Score MEWS Respiratory Rate : 15-20 MEWS Heart Rate : 51-100 MEWS Systolic Blood Pressure : 81-100 MEWS Temperature : 36.1 to 38 Celsius / 96.9 to 100.4 Fahrenheit MEWS Conscious Level (AVPU) : Alert MEWS Score : 2 Sienna Simmons, Oncology Nurse Navigator-Nursing - 01/28/2021 17:59 EDT Electronically signed by Carlotta [facility] Conversion Workshop Manager Cerner at 12/07/2022 6:14 PM CDT documented in this encounter Plan of Treatment Not on file documented as of this encounter Visit Diagnoses Not on filedocumented in this encounter Care Teams Log Roper Relationship Specialty Start Date End Date Yuan Mccracken MD [address] [place] [phone] PCP - General Family Medicine 09/23/22 documented as of this encounter
--- OUTSIDE RECORDS SUMMARY | 2025-02-15 10:07 | XMS_ITS | Encounter Summary ---
Author Organization [facility] [employer] Init [facility]atives Address [address] [place] [address] Care Team Providers Care Operating Manager Name Role Phone Yuan Mccracken MD Primary Care Provider [phone] Encounter Details Date Type Department Care Team (Late st Contact Info) Description 01/21/2021 Transcribed Document [facility] [place] Family Medicine [address] [place] [address] ProviderPerry MD [address], [place] [address] Social History Tobacco Use Types Packs/Day Years Used Date Smoking Tobacco: Never Assessed Comments Unknown Sex and Gender Information Value Date Recorded Sex Assigned at Not on file Legal Sex Female 12:32 PM CDT Gender Identity Not on file Sexual Orientation Not on file documented as of this encounter Miscellaneous Notes * Cerner Conversion Note - Perry Nunes MD - 01/21/2021 11:48 AM CDT Patient: CHANI VELASQUEZ Age: 60 Years Sex: Female : 1960 Subjective Improvement in renal function. UOP 2.1 liter. K 3.1. Afib rate controlled. Vital Signs T: 37.3 ??C TMIN: 36.7 ??C TMAX: 37.3 ??C HR: 81 RR: 28 BP: 151/77 SpO2: 96% Oxygen Settings (Last) Oxygen Therapy Mode: Nasal cannula (01/21/21 08:34:00) Oxygen Flow Rate: 4 Liter/Min (01/21/21 08:34:00) Intake & Output Totals Last 24 Hours (7a-7a) Input Total: 1511.18 mL Output Total: 2130 mL Balance: -618.82 mL Physical Exam General: No acute distress, Elderly WF. Eye: Extraocular movements are intact, Normal conjunctiva. HENT: Normocephalic, OMM dry. Neck: Supple, No jugular venous distention. Respiratory: Respirations are non-labored, Symmetrical chest wall expansion. Cardiovascular: Normal rate, + Edema. Gastrointestinal: Soft, Obese. Genitourinary: + Coulter no palpable bladder.. Integumentary: Warm, Bilateral lower extremities with dressing in place.. Neurologic: Alert, Oriented. Psychiatric: Cooperative, Appropriate mood & affect Assessment/Plan MISHA: Suspect hemodynamic injury plus obstructive uropathy. Baseline creatinine unknown. Renal ultrasound shows mild left hydro with CT scan showing obstructive 6 mm stone. Patient improving with fluids and supportive care. For now continue to monitor for further renal recovery. Left ureteral obstruction: Mild hydronephrosis seen with UPJ stone.. Urology following Will need stone prevention workup as outpatient. HTN: Blood pressure stable but elevated. Monitor for now. Metabolic acidosis: resolved. Hypokalemia: Getting K supplementation Hyperphosphatemia: Due to renal failure. Monitor for improvement with renal recovery. Volume: Stable for now. Cellulitis: On antibiotics. Afib w RVR Recs Monitor renal function. Supplement K and Mag Diuretics on PRN basis Daily labs. High risk and complexity patient VTE Prophylaxis - Medical Apixaban 5 mg, Oral, Tab, [id number], Routine, Start 01/21/21 10:00:00 EDT, 01/21/21 9:43:00 EDT (EDI BHAT) Medications albuterol-ipratropium 100 mcg-20 mcg/inh inhalation aerosol, 1 Puff, Inhalation, Q4H While Awake, PRN calcium gluconate calcium gluconate + Sodium Chloride 0.9% intravenous solution 100 mL calcium gluconate + Sodium Chloride 0.9% intravenous solution 100 mL dilTIAZem injection 100 mg + Premix Diluent NaCl 0.9% for Drip 100 mL doxycycline, 100 mg= 1 Cap, Oral, Q12H Dulcolax Laxative, 5 mg= 1 Tab, Oral, Daily, PRN Eliquis, 5 mg= 1 Tab, Oral, [id number] Lac-Hydrin 12% topical lotion, 1 Application, Topical, BID magnesium sulfate, 2 Gram= 50 mL, IV Piggyback, Daily, PRN magnesium sulfate, 2 Gram= 50 mL, IV Piggyback, Q2H, PRN metoprolol tartrate, 50 mg= 1 Tab, Oral, BID MiraLax, 17 Gram= 1 Packet, Oral, Daily, PRN Mucinex, 600 mg= 1 Tab, Oral, BID, PRN nystatin, [id number] Units= 5 mL, Swish and Swallow , [...] 650 mg= 2 Tab, Oral, Q4H, PRN Zofran, 4 mg= 2 mL, IV Push, Q4H, PRN Zosyn + Sodium Chloride 0.9% intravenous solution 100 mL Lab Results Test Name Test Result Date/Time Sodium Level 137 mmol/L 01/21/2021 03:04 EDT Potassium Level 3.2 mmol/L (Low) 01/21/2021 03:04 EDT Chloride Level 103 mmol/L 01/21/2021 03:04 EDT Carbon Dioxide Level 29 mmol/L 01/21/2021 03:04 EDT Anion Gap 8 (Low) 01/21/2021 03:04 EDT Glucose Level 111 mg/dL (High) 01/21/2021 03:04 EDT Blood Urea Nitrogen 34 mg/dL (High) 01/21/2021 03:04 EDT Creatinine Level 1.40 mg/dL (High) 01/21/2021 03:04 EDT eGFR 46 mL/min/1.73m2 (Low) 01/21/2021 03:04 EDT eGFR NonAfrican 38 mL/min/1.73m2 (Low) 01/21/2021 03:04 EDT Bun/Creatinine 24.3 (High) 01/21/2021 03:04 EDT Calcium Level 7.2 mg/dL (Low) 01/21/2021 03:04 EDT Magnesium Level 1.5 mg/dL 01/21/2021 03:04 EDT WBC 20.0 K/uL (High) 01/21/2021 03:04 EDT RBC 3.24 Million/uL (Low) 01/21/2021 03:04 EDT Hgb 8.7 g/dL (Low) 01/21/2021 03:04 EDT Hct 28.2 % (Low) 01/21/2021 03:04 EDT MCV 87.0 fL 01/21/2021 03:04 EDT MCH 26.9 pg 01/21/2021 03:04 EDT MCHC 30.9 Gram/dL (Low) 01/21/2021 03:04 EDT Platelet Count 322 K/uL 01/21/2021 03:04 EDT MPV 9.9 fL 01/21/2021 03:04 EDT RDW 17.1 % (High) 01/21/2021 03:04 EDT Neutrophil Percent Man 84 % (High) 01/21/2021 03:04 EDT ANC # 17 K/uL 01/21/2021 03:04 EDT Lymph Percent Man 8 % (Low) 01/21/2021 03:04 EDT ALYC # 2 K/uL 01/21/2021 03:04 EDT [place] Percent Man 4 % 01/21/2021 03:04 EDT Eos Percent Man 2 % 01/21/2021 03:04 EDT [place] Percent Man 2 % (High) 01/21/2021 03:04 EDT RBC Morphology Normal 01/21/2021 03:[address] Estimate Adequate 01/21/2021 03:04 EDT Slide Review Add Diff 01/21/2021 03:04 EDT PTT Heparin 75.6 Second(s) (Critical) 01/21/2021 03:04 EDT PTT Heparin 65.3 Second(s) 01/20/2021 22:36 EDT PTT Heparin 50.4 Second(s) 01/20/2021 16:31 EDT Electronically signed by Carlotta, [facility] Conversion Antique Furniture Restorer Cerner at 12/07/2022 6:27 PM CDT documented in this encounter Plan of Treatment Not on file documented as of this encounter Visit Diagnoses Not on filedocumented in this encounter Care Teams Operating Manager Relationship Specialty Start Date End Date Yuan Mccracken MD [address] [place] [phone] PCP - General Family Medicine 09/23/22 documented as of this encounter
--- OUTSIDE RECORDS SUMMARY | 2025-02-15 10:07 | XMS_ITS | Encounter Summary ---
Author Organization [employer] Address [address] [place] [address] Care Team Providers Care Oracle Hrms Developer Name Role Phone Yuan Mccracken MD Primary Care Provider [phone] Encounter Details Date Type Department Care Team (Late st Contact Info) Description 01/28/2021 Transcribed Document [facility] [place] Family Medicine [address] [place] [address] ProviderPerry MD [address] [place], [place] [id number] Social History Tobacco Use Types Packs/Day Years Used Date Smoking Tobacco: Never Assessed Comments Unknown Sex and Gender Information Value Date Recorded Sex Assigned at Not on file Legal Sex Female 12:32 PM CDT Gender Identity Not on file Sexual Orientation Not on file documented as of this encounter Miscellaneous Notes * Cerner Conversion Note - Perry Nunes MD - 01/28/2021 10:49 AM CDT Patient: CHANI VELASQUEZ Age: 60 years Sex: Female : 1960 Associated Diagnoses: None Author: CADENCE MONACO MD Basic Information No acute events overnight. No new complaints. Review of Systems Constitutional: Weakness. Respiratory: No shortness of breath, No cough. Cardiovascular: Peripheral edema, No chest pain. Neurologic: Alert and oriented X4. Health Status Allergies: Allergic Reactions (All) No Known Allergies, Allergies (1) Active Reaction No Known Allergies None Documented Current medications: (Selected) Inpatient Medications Ordered Dulcolax Laxative: 5 mg, Oral, Daily, PRN: Constipation DuoNeb 0.5 mg-2.5 mg/3 mL inhalation solution: 3 mL, Nebulized Inhalation, RT_Q6H, PRN: Wheezing Eliquis: 5 mg, Oral, [id number] Lac-Hydrin 12% topical lotion: 1 Application, Topical, BID Lasix: 40 mg, Oral, BID Melatonin: 1 mg, Oral, At Bedtime, PRN: Sleep MiraLax: 17 Gram, Oral, Daily, PRN: Constipation Mucinex: 600 mg, Oral, BID, PRN: Cough Pepcid: 20 mg, Oral, Daily Tylenol: 650 mg, Oral, Q4H, PRN: Pain (Mild 1-3) Zofran: 4 mg, IV Push, Q4H, PRN: Nausea Zyvox: 600 mg, Oral, Q12H albuterol-ipratropium 100 mcg-20 mcg/inh inhalation aerosol: 1 Puff, Inhalation, Q4H While Awake, PRN: Wheezing calcium gluconate + Sodium Chloride 0.9% intravenous solution 100 mL: 2 Gram, 20 mL, 120 mL/Hr, IV Piggyback, Daily, PRN: Other (See Comment) calcium gluconate + Sodium Chloride 0.9% intravenous solution 100 mL: 2 Gram, 20 mL, 120 mL/Hr, IV Piggyback, Q12H, PRN: Other (See Comment) calcium gluconate: 1 Gram, 10 mL, 60 mL/Hr, IV Piggyback, Daily, PRN: Other (See Comment) doxycycline: 100 mg, Oral, Q12H lactobacillus acidophilus: 1 Cap, Oral, BID magnesium sulfate: 2 Gram, 50 mL, 25 mL/Hr, IV Piggyback, 1-Time magnesium sulfate: 2 Gram, 50 mL, 25 mL/Hr, IV Piggyback, Daily, PRN: Other (See Comment) magnesium sulfate: 2 Gram, 50 mL, 25 mL/Hr, IV Piggyback, Q2H, PRN: Other (See Comment) metoprolol tartrate: 50 mg, Oral, BID nystatin: 500,000 Units, Swish and Swallow, QID potassium chloride 10 mEq/50 mL intravenous solution: 10 mEq, 50 mL, 50 mL/Hr, IV Piggyback, Q1H, PRN: Other (See Comment) potassium chloride 20 mEq oral tablet, extended release: 20 mEq, 1 Tab, Oral, Q2H, PRN: Other (See Comment) potassium chloride 20 mEq oral tablet, extended release: 40 mEq, 2 Tab, Oral, BID potassium chloride 20 mEq oral tablet, extended release: 60 mEq, 3 Tab, Oral, Q2H, PRN: Other (See Comment) sodium phosphate: 15 mMole, 5 mL, 50 mL/Hr, IV Piggyback, Daily, PRN: Other (See Comment) sodium phosphate: 15 mMole, 5 mL, 50 mL/Hr, IV Piggyback, Q6H, PRN: Other (See Comment), Medications (29) Active Scheduled: (11) ammonium lact 12% lot 225 g 1 Application, Topical, BID apixaban 5 mg tab 5 mg 1 Tab, Oral, [id number] doxycycline hyclate 100 mg cap 100 mg 1 Cap, Oral, Q12H famotidine 20 mg tab 20 mg 1 Tab, Oral, Daily furosemide 40 mg tab 40 mg 1 Tab, Oral, BID lactobacillus acidophilus cap 1 Cap, Oral, BID linezolid 600 mg tab 600 mg 1 Tab, Oral, Q12H magnesium sulfate 2 Gram 50 mL, IV Piggyback, 1-Time metoprolol tartrate 50 mg tab 50 mg 1 Tab, Oral, BID nySTATin 100,000 unit/mL susp 5 mL 500,000 Units 5 mL, Swish and Swallow, QID potassium chloride CR 20 mEq tab 40 mEq 2 Tab, Oral, BID Continuous: (0) PRN: (18) acetaminophen 325 mg tab 650 mg 2 Tab, Oral, Q4H albuterol-ipratropium CFC free 4 g inh 1 Puff, Inhalation, Q4H While Awake albuterol-ipratropium inh 3 mL 3 mL, Nebulized Inhalation, RT_Q6H bisacodyl EC 5 mg tab 5 mg 1 Tab, Oral, Daily calcium gluconate 1 Gram 10 mL, IV Piggyback, Daily calcium gluconate + NaCl 0.9% 100 mL 2 Gram 20 mL, IV Piggyback, Daily calcium gluconate + NaCl 0.9% 100 mL 2 Gram 20 mL, IV Piggyback, Q12H guaiFENesin 600 mg ER tab 600 mg 1 Tab, Oral, BID magnesium sulfate 2 Gram 50 mL, IV Piggyback, Daily magnesium sulfate 2 Gram 50 mL, IV Piggyback, Q2H melatonin 1 mg tab 1 mg 1 Tab, Oral, At Bedtime ondansetron 4 mg/2 mL inj 4 mg 2 mL, IV Push, Q4H polyethylene glycol 3350 pwd 17 g pkt 17 Gram 1 Packet, Oral, Daily potassium chloride 10 mEq 50 mL, IV Piggyback, Q1H potassium chloride CR 20 mEq tab 20 mEq 1 Tab, Oral, Q2H potassium chloride CR 20 mEq tab 60 mEq 3 Tab, Oral, Q2H sodium phosphate 15 mMole 5 mL, IV Piggyback, Daily sodium phosphate 15 mMole 5 mL, IV Piggyback, Q6H Problem list: Medical Obesity / SNOMED CT [id number] / Confirmed, Active Problems (1) Obesity Physical Examination VS/Measurements Vitals Signs (last 24 hrs) Last Charted Minimum Maximum Temp 97.4 (JAN 28 04:59) 97.4 (JAN 28 04:59) 98 (JAN 27 13:00) Apical HR 76 (JAN 28 09:35) 76 (JAN 28 09:35) 78 (JAN 27 20:37) Mon HR 66 (JAN 28 08:22) 66 (JAN 27 12:20) 78 (JAN 27 20:28) Resp Rate 16 (JAN 28 08:22) 16 (JAN 27 12:13) 20 (JAN 27 20:28) SBP 122 (JAN 28 04:59) 104 (JAN 27 17:23) 129 (JAN 27 13:00) DBP 76 (JAN 28 04:59) 62 (JAN 27 17:23) 84 (JAN 27 20:28) MAP 88 (JAN 28 04:59) 73 (JAN 27 17:23) 99 (JAN 28 00:00) SpO2 100 (JAN 28 08:22) 94 (JAN 28 04:48) 100 (JAN 27 17:23) , Measurements from flowsheet : Measurements 01/28/2021 5:00 EDT Routine Weight Source Bed scale Routine Weight Entry Format [place] Routine Weight, Pounds 281 lb Routine Weight Calculation 127.73 kg General: Alert and oriented, No acute distress. Eye: EOMI, Normal conjunctiva HENT: Normocephalic. Neck: Supple, Non-tender, No carotid bruit, No jugular venous distention. Respiratory: Breath sounds are equal, Symmetrical chest wall expansion. Non labored. Cardiovascular: Normal rate, Regular rhythm, No murmur Gastrointestinal: Soft, Non-distended, Normal bowel sounds. Neurologic: Alert, Oriented. Psychiatric: Cooperative, Appropriate mood & affect. Review / Management Results review: Labs (Last four charted values) WBC 8.6 (TOM 09) H 10.8 (TOM 08) H 11.6 (TOM 07) H 12.4 (JAN 06) HB L 8.4 (TOM 09) L 7.9 (TOM 08) L 8.3 (TOM 07) L 8.0 (TOM 06) HCT L 31.1 (TOM 09) L 26.4 (TOM 08) L 27.7 (TOM 07) L 26.8 (TOM 06) Plt 312 (TOM 09) H 424 (TOM 08) H 414 (TOM 07) H 392 (TOM 06) Na 137 (TOM 09) 139 (TOM 08) 141 (TOM 07) 137 (TOM 06) K 4.0 (TOM 09) 4.6 (TOM 08) 4.5 (TOM 07) 4.5 (TOM 06) Cl 109 (TOM 09) 110 (TOM 08) 110 (TOM 07) 110 (TOM 06) CO2 21 (TOM 09) 23 (TOM 08) 24 (TOM 07) 21 (TOM 06) BUN H 23 (TOM 09) 22 (TOM 08) 22 (TOM 07) H 23 (TOM 06) Cr H 1.30 (TOM 09) H 1.30 (TOM 08) H 1.40 (TOM 07) H 1.30 (TOM 06) Glu R 81 (TOM 09) 80 (TOM 08) 81 (TOM 07) 86 (TOM 06) Ca L 8.0 (TOM 09) L 8.1 (TOM 08) L 8.3 (TOM 07) L 7.9 (JAN 06) Lactic 2.0 (JANUARY 19) C 2.5 (JANUARY 17) C 2.3 (JANUARY 17) C 2.6 (JANUARY 16) PT 11.9 (JAN 20) INR 1.1 (JAN 20) AST 16 (TOM 08) 20 (TOM 06) 25 (TOM 05) H 50 (JANUARY 19) ALT 18 (JAN 08) 21 (JAN 06) 28 (JAN 05) 36 (JANUARY 19) ALK P 56 (TOM 08) 53 (TOM 06) 57 (JAN 24) 86 (JANUARY 19) T Bili 0.4 (JAN 27) 0.9 (JAN 25) 0.5 (JAN 24) 0.5 (JANUARY 19) PTN L 6.0 (JAN 27) L 5.9 (JAN 25) L 6.3 (JAN 24) L 6.2 (JANUARY 19) ALB L 1.5 (JAN 27) L 1.5 (JAN 25) L 1.5 (JAN 24) L 1.4 (JANUARY 19) Troponin <0.015 (JANUARY 16) . JAN 28 05:00 137 109 H 23 / 81 4.0 21 H 1.30 \ JAN 28 05:00 \ L 8.4 / 8.6 312 / L 31.1 \ Impression and Plan Dx and Plan 1. MISHA - non oliguric - Pre-renal plus obstructive uropathy - Mild left hydro with [address] scan. 2. Anemia: will watch 3. Blood Pressure:stable 4. Cellulitis 5. Nephrolithasis with obstruction on the left side. Urology following. Plan: - Continue with current. albumin infusiona and lasix. - Monitor I/o - Avoid nephrotoxic agents - Renal diet. - Adjust meds per renal funtion - No emergent need of CRIMPING MACHINE OPERATOR. documented in this encounter Plan of Treatment Not on file documented as of this encounter Visit Diagnoses Not on filedocumented in this encounter Care Teams Oracle Hrms Developer Relationship Specialty Start Date End Date Yuan Mccracken MD [address] [place] [address] PCP - General Family Medicine 09/23/22 documented as of this encounter
--- OUTSIDE RECORDS SUMMARY | 2025-02-15 10:07 | XMS_ITS | Encounter Summary ---
Author Organization [facility] [employer] Address [address] [place] [address] Care Team Providers Care [employer] Name Role Phone Yuan Mccracken MD Primary Care Provider [phone] Encounter Details Date Type Department Care Team (Late st Contact Info) Description 01/28/2021 Transcribed Document [facility] [place] [address] [place] [address] ProviderPerry MD [address] [place], [place] [address] Social History Tobacco Use Types Packs/Day Years Used Date Smoking Tobacco: Never Assessed Comments Unknown Sex and Gender Information Value Date Recorded Sex Assigned at Not on file Legal Sex Female 12:32 PM CDT Gender Identity Not on file Sexual Orientation Not on file documented as of this encounter Miscellaneous Notes * Cerner Conversion Note - Perry ProviderMD - 01/28/2021 1:23 PM CDT Attempt to Treat, PT Entered On: 01/28/2021 14:47 EDT Performed On: 01/28/2021 13:23 EDT by CESIA WILSON PT Attempt to Treat Unable to Treat Due To : Patient on hold Inability to Treat Comment : BLE Surepress compression wraps appear intact and not saturated with drainage; plan to change BLE wraps tomorrow 01/29 CESIA WILSON, PT - 01/28/2021 14:46 EDT documented in this encounter Plan of Treatment Not on file documented as of this encounter Visit Diagnoses Not on filedocumented in this encounter Care Teams [employer] Relationship Specialty Start Date End Date Yuan Mccracken MD [facility] [place] [address] PCP - General Family Medicine 09/23/22 documented as of this encounter
--- OUTSIDE RECORDS SUMMARY | 2025-02-15 10:07 | XMS_ITS | Encounter Summary ---
Author Organization [facility] [employer] Address [address] [place] [address] Care Team Providers Care Flexographic Press Helper Name Role Phone Yuan Mccracken MD Primary Care Provider [phone] Encounter Details Date Type Department Care Team (Late st Contact Info) Description 01/20/2021 Transcribed Document [facility] [place] Family Medicine [address] [place] [address] ProviderPerry MD [address], [place] [address] Social History Tobacco Use Types Packs/Day Years Used Date Smoking Tobacco: Never Assessed Comments Unknown Sex and Gender Information Value Date Recorded Sex Assigned at Not on file Legal Sex Female 12:32 PM CDT Gender Identity Not on file Sexual Orientation Not on file documented as of this encounter Miscellaneous Notes * Cerner Conversion Note - ePrry Nunes MD - 01/20/2021 11:31 AM CDT Patient: CHANI VELASQUEZ Age: 60 Years Sex: Female : 1960 Subjective Improving renal function. UOP 1.9 liter. feels somewhat sob. Does have LE edema. K 3.1 Mag 1.5. Afib w RVR on dilt gtt. Vital Signs T: 37.3 ??C TMIN: 37.1 ??C TMAX: 37.9 ??C HR: 106 RR: 36 BP: 125/60 SpO2: 97% Oxygen Settings (Last) Oxygen Therapy Mode: Nasal cannula (01/20/21 08:48:00) Oxygen Flow Rate: 4 Liter/Min (01/20/21 08:48:00) Intake & Output Totals Last 24 Hours (7a-7a) Input Total: 2616.705 mL Output Total: 1950 mL Balance: 666.705 mL Physical Exam General: No acute distress, [...] Oriented. Psychiatric: Cooperative, Appropriate mood & affect. Assessment/Plan MISHA: Suspect hemodynamic injury plus obstructive [...] Monitor renal function. Supplement K and Mag Lasix 20 mg IV x 1 Daily labs. High risk and complexity patient VTE Prophylaxis - Medical No VTE Prophylaxis Orders. Medications calcium gluconate calcium gluconate + Sodium Chloride 0.9% intravenous solution 100 mL calcium gluconate + Sodium Chloride 0.9% intravenous solution 100 mL dilTIAZem injection 100 mg + Premix Diluent NaCl 0.9% for Drip 100 mL doxycycline, 100 mg= 1 Cap, Oral, Q12H Dulcolax Laxative, 5 mg= 1 Tab, Oral, Daily, PRN heparin injection 25,000 Units + NaCl 0.45% Premix Diluent 250 mL Lasix, 20 mg= 2 mL, IV Push, 1-Time magnesium oxide, 400 mg= 1 Tab, Oral, BID magnesium sulfate, 2 Gram= 50 mL, IV Piggyback, 1-Time magnesium sulfate, 2 Gram= 50 mL, IV Piggyback, Daily, PRN magnesium sulfate, 2 Gram= 50 mL, IV Piggyback, Q2H, PRN metoprolol tartrate, 12.5 mg= 0.5 Tab, Oral, TID MiraLax, 17 Gram= 1 Packet, Oral, Daily, PRN Mucinex, 600 mg= 1 Tab, Oral, BID, PRN nystatin, [id number] Units= 5 mL, Swish and Swallow , QID Pepcid, 20 mg= 1 Tab, Oral, Daily potassium bicarbonate 20 mEq oral tablet, effervescent, 40 mEq= 2 Tab, Oral, BID potassium chloride 10 mEq/50 mL intravenous solution, [...] Test Result Date/Time Sodium Level 139 mmol/L 01/20/2021 03:50 EDT Potassium Level 3.1 mmol/L (Low) 01/20/2021 03:50 EDT Chloride Level 105 mmol/L 01/20/2021 03:50 EDT Carbon Dioxide Level 26 mmol/L 01/20/2021 03:50 EDT Anion Gap 11 01/20/2021 03:50 EDT Glucose Level 125 mg/dL (High) 01/20/2021 03:50 EDT Blood Urea Nitrogen 48 mg/dL (High) 01/20/2021 03:50 EDT Creatinine Level 1.60 mg/dL (High) 01/20/2021 03:50 EDT eGFR 40 mL/min/1.73m2 (Low) 01/20/2021 03:50 EDT eGFR NonAfrican 33 mL/min/1.73m2 (Low) 01/20/2021 03:50 EDT Bun/Creatinine 30.0 (High) 01/20/2021 03:50 EDT Calcium Level 7.5 mg/dL (Low) 01/20/2021 03:50 EDT Magnesium Level 1.5 mg/dL 01/20/2021 03:50 EDT Phosphorus 2.5 mg/dL 01/20/2021 03:50 EDT WBC 14.2 K/uL (High) 01/20/2021 03:50 EDT RBC 3.23 Million/uL (Low) 01/20/2021 03:50 EDT Hgb 8.7 g/dL (Low) 01/20/2021 03:50 EDT Hct 27.4 % (Low) 01/20/2021 03:50 EDT MCV 84.8 fL 01/20/2021 03:50 EDT MCH 26.9 pg 01/20/2021 03:50 EDT MCHC 31.8 Gram/dL (Low) 01/20/2021 03:50 EDT Platelet Count 297 K/uL 01/20/2021 03:50 EDT MPV 10.1 fL 01/20/2021 03:50 EDT RDW 17.0 % (High) 01/20/2021 03:50 EDT Neutrophil Percent Man 84 % (High) 01/20/2021 03:50 EDT Band Percent Man 3 % (Low) 01/20/2021 03:50 EDT Lymph Percent Man 6 % (Low) 01/20/2021 03:50 EDT [place] Percent Man 4 % 01/20/2021 03:50 EDT Eos Percent Man 1 % 01/20/2021 03:50 EDT Baso Percent Man 0 % 01/20/2021 03:50 EDT Wilson Percent Man 1 % 01/20/2021 03:50 EDT Myelo Percent Man 1 % 01/20/2021 03:50 EDT NRBC 1 (High) 01/20/2021 03:50 EDT nRBC 0.040 (High) 01/20/2021 03:50 EDT RBC Morphology Abnormal 01/20/2021 03:50 EDT Anisocytosis 1+ (Abnormal) 01/20/2021 03:50 EDT Polychromasia 1+ (Abnormal) 01/20/2021 03:50 EDT Hypochromia 1+ (Abnormal) 01/20/2021 03:50 EDT Baso Stippling 1+ (Abnormal) 01/20/2021 03:50 EDT Toxic Granulation 1+ (Abnormal) 01/20/2021 03:[address] Estimate Adequate 01/20/2021 03:50 EDT documented in this encounter Plan of Treatment Not on file documented as of this encounter Visit Diagnoses Not on filedocumented in this encounter Care Teams Flexographic Press Helper Relationship Specialty Start Date End Date Yuan Mccracken MD [address] [place] [phone] PCP - General Family Medicine 09/23/22 documented as of this encounter
--- OUTSIDE RECORDS SUMMARY | 2025-02-15 10:07 | XMS_ITS | Encounter Summary ---
Author Organization [facility] [employer] Address [address] [place] [address] Care Team Providers Care I O Psychologist Name Role Phone Yuan Mccracken MD Primary Care Provider [phone] Encounter Details Date Type Department Care Team (Late st Contact Info) Description 01/16/2021 Transcribed Document [facility] [place] Family Medicine [address] [place] [address] ProviderPerry MD [address], [place] [id number] Social History Tobacco Use Types Packs/Day Years Used Date Smoking Tobacco: Never Assessed Comments Unknown Sex and Gender Information Value Date Recorded Sex Assigned at Not on file Legal Sex Female 12:32 PM CDT Gender Identity Not on file Sexual Orientation Not on file documented as of this encounter Miscellaneous Notes * Libraner Conversion Note - Perry Nunes MD - 01/16/2021 8:25 PM CDT Pain Assessment Entered On: 01/23/2021 16:19 EDT Performed On: 01/23/2021 14:33 EDT by Yelitza Chen RN-PATIENT CARE BEDSIDE NON-EXEMPT Intervention Information: acetaminophen Performed by Yelitza Chen RN-PATIENT CARE BEDSIDE NON-EXEMPT on 01/23/2021 13:33:00 EDT acetaminophen,650mg Oral,Pain (Mild 1-3) Pain Assessment Pain Assessment : Follow-up assessment Pain Scale Goal : 2 Yelitza Chen RN-PATIENT CARE BEDSIDE NON-EXEMPT - 01/23/2021 16:19 EDT documented in this encounter Plan of Treatment Not on file documented as of this encounter Visit Diagnoses Not on filedocumented in this encounter Care Teams I O Psychologist Relationship Specialty Start Date End Date Yuan Mccracken MD [address] [place] [phone] PCP - General Family Medicine 09/23/22 documented as of this encounter
--- OUTSIDE RECORDS SUMMARY | 2025-02-15 10:07 | XMS_ITS | Encounter Summary ---
Author Organization [facility] [employer] Address [address] [place] [address] Care Team Providers Care Access Database Developer Name Role Phone Yuan Mccracken MD Primary Care Provider [phone] Encounter Details Date Type Department Care Team (Late st Contact Info) Description 01/16/2021 Transcribed Document [facility] [place] Family Medicine [facility] [place] [address] ProviderPerry MD [address], [place] [address] Social History Tobacco Use Types Packs/Day Years Used Date Smoking Tobacco: Never Assessed Comments Unknown Sex and Gender Information Value Date Recorded Sex Assigned at Not on file Legal Sex Female 12:32 PM CDT Gender Identity Not on file Sexual Orientation Not on file documented as of this encounter Miscellaneous Notes * Cerner Conversion Note - Perry Nunes MD - 01/16/2021 10:24 PM CDT Patient: CHANI VELASQUEZ Age: 60 years Sex: Female : 1960 Associated Diagnoses: None Author: HARLAN JARA MD-[facility] Patient seen and dictated [id number] MISHA vs CKD Hyperkalemia Acidosis Cellulitis Anemia Bed Bugs Plan Renal and K better Continue with bicarb drip Keep Coulter in place Labs ordered Electronically signed by Carlotta [facility] Conversion Rubber Tile Floor Layer Cerner at 12/07/2022 6:18 PM CDT documented in this encounter Plan of Treatment Not on file documented as of this encounter Visit Diagnoses Not on filedocumented in this encounter Care Teams Access Database Developer Relationship Specialty Start Date End Date Yuan Mccracken MD [address] [place] [phone] PCP - General Family Medicine 09/23/22 documented as of this encounter
--- OUTSIDE RECORDS SUMMARY | 2025-02-15 10:07 | XMS_ITS | Encounter Summary ---
Author Organization [facility] [employer] Address [address] [place] [address] Care Team Providers Care Stocklayer Name Role Phone Yuan Mccracken MD Primary Care Provider [phone] Encounter Details Date Type Department Care Team (Late st Contact Info) Description 01/20/2021 Transcribed Document [facility] Cardiology [address] [place] [phone] [place] [address] [place] [address] [address] [place] [address] Social History Tobacco Use Types Packs/Day Years Used Date Smoking Tobacco: Never Assessed Comments Unknown Sex and Gender Information Value Date Recorded Sex Assigned at Not on file Legal Sex Female 12:32 PM CDT Gender Identity Not on file Sexual Orientation Not on file documented as of this encounter Miscellaneous Notes * Cerner Conversion Note - Grupo Smith MD - 01/20/2021 11:01 AM EDT Patient: CHANI VELASQUEZ Age: 60 years Sex: Female : 1960 Associated Diagnoses: None Author: GRUPO SMITH MD-CAR BASIC Primary Toe Puller: None Subjective Reconsulted; new onset a-fib. Started on Cardizem gtt last night. Health Status Current medications: No qualifying data available , Medications (24) Active Scheduled: (8) doxycycline hyclate 100 mg cap 100 mg 1 Cap, Oral, Q12H famotidine 20 mg tab 20 mg 1 Tab, Oral, Daily heparin 5,000 units/1 mL inj 5,000 Units 1 mL, SubCutaneous, Q8H magnesium oxide 400 mg tab 400 mg 1 Tab, Oral, BID nySTATin 100,000 unit/mL susp 5 mL 500,000 Units 5 mL, Swish and Swallow, QID piperacillin-tazobactam + NaCl 0.9% 100 mL 4.5 Gram, IV Piggyback, 1-Time piperacillin-tazobactam + NaCl 0.9% 100 mL 3.375 Gram, IV Piggyback, Q6HInt potassium bicarb efferves 20 mEq dis tab 40 mEq 2 Tab, Oral, BID Continuous: (1) diltiazem 100 mg + Premix Diluent NaCl 0.9% TITRATE 100 mL 100 mL, IntraVENous PRN: (15) acetaminophen 325 mg tab 650 mg 2 Tab, Oral, Q4H bisacodyl EC 5 mg tab 5 mg [...] 2 Gram 50 mL, IV Piggyback, Q2H ondansetron 4 mg/2 mL inj 4 mg [...] 5 mL, IV Piggyback, Q6H Problem list: Active Problems (1) Obesity Objective VS/Measurements Vitals Signs (last 24 hrs) Last Charted Minimum Maximum Temp 99.6 (JAN 20 04:00) 98.8 (MAY 31 12:00) H 100.3 (JAN 20 00:00) Mon HR 87 (JAN 20 06:00) 80 (JANUARY 19 14:00) 146 (JANUARY 19 23:30) Resp Rate H 25 (JAN 20 06:00) H 25 (JAN 20 06:00) H 61 (JANUARY 19 22:30) SBP 112 (JAN 20 06:00) 112 (JAN 20 06:00) H 177 (JANUARY 19 22:00) DBP L 53 (JAN 20 06:00) L 53 (JAN 20 06:00) H 105 (JANUARY 19 20:00) MAP 76 (JAN 20 06:00) 76 (JAN 20 06:00) 121 (JANUARY 19 20:00) SpO2 95 (JAN 20 08:48) L 87 (JANUARY 19 21:00) 100 (JANUARY 19 13:00) General: Alert and oriented, No acute distress. Eye: Pupils are equal, round and reactive to light, Normal conjunctiva, Vision unchanged. HENT: Normocephalic. Neck: Supple, Non-tender, No carotid bruit, No jugular venous distention. Respiratory: Breath sounds are equal, Symmetrical chest wall expansion. Breath sounds: Bilateral, Diminished. Support: Oxygen ( 4 L/min ), Oxygen delivery method ( Nasal cannula ). Cardiovascular: Normal rate, Regular rhythm, No murmur, Good pulses equal in all extremities. Gastrointestinal: Soft, Non-distended, Normal bowel sounds. Musculoskeletal: No deformity. Integumentary: Warm, Dry. Neurologic: Alert, Oriented. Psychiatric: Cooperative, Appropriate mood & affect. Results Review JAN 20 03:50 139 105 H 48 / H 125 L 3.1 26 H 1.60 \ JAN 20 03:50 \ L 8.7 / H 14.2 297 / L 27.4 \ Cardiac Markers (Current Encounter/Past 24 Hours) No Cardiac Marker Results Found (Past 24 Hours) Radiology Results (Last 48 hours) [id number] -- 01/16/2021 19:34 CR Chest 1 Vw Portable (01/18/2021 10:01) Result: PORTABLE CHEST; HISTORY: Dyspnea.COMPARISON: January 16, 2021.FINDINGS: The heart is stable in size. The lung singh demonstrate nosignificant change in the left perihilar opacity. There is nopneumothorax.IMPRESSION: There has been no significant interval change.Continued followup is recommended.Images reviewed, interpreted, and dictated by Dr. Odin Solitario.Transcribed by Deedee Mendoza PA-C.I have personally viewed, interpreted and dictated the examination. Ihave read and agree with the above final transcribed report. ECHO 01/17/2021 Impression: Technically very limited study due to body habitus. Normal sized left ventricle. Mild left ventricular hypertrophy. Visually estimated ejection fraction 55% +/- 5%. Normal systolic function. No hemodynamically significant valvular heart disease. Measurements Summary: LVEDd: 3.81 cm LVESd: 2.31 cm IVSEd: 1.15 cm AO Root:2.59 cm LVPWd: 1.16 cm Impression and Plan IMPRESSION: A-fib with RVR; new onset Abnormal EKG SR with PAC's Acute renal failure; improved Cr 6.5 (POA) -> 1.6 today K+ 6.8 (POA) -> 3.1 today Renal u/s shows mild left hydro, CT scan showing obstructive 6 mm stone. producing urine, no plans for dialysis per Nephrology Cellulitis bilateral lower extremities Hypertension uncontrolled PLAN; 01/20/2021 EKG now Add metoprolol Replace electrolytes Wean cardizem off for HR <110 In no spontaneous return to NSR will consider DCCV Heparin Gtt for now. DC sub q. Decision for long goods drier OAC pending clinical course 01/17/2021 No indication for further cardiac testing at this time. Cardiology will sign off. documented in this encounter Plan of Treatment Not on file documented as of this encounter Visit Diagnoses Not on filedocumented in this encounter Care Teams Stocklayer Relationship Specialty Start Date End Date Yuan Mccracken MD [facility] [place] [address] PCP - General Family Medicine 09/23/22 documented as of this encounter
--- OUTSIDE RECORDS SUMMARY | 2025-02-15 10:07 | XMS_ITS | Encounter Summary ---
Author Organization [facility] [employer] [facility] Address [address] [place] [address] Care Team Providers Care Aircraft Body Repairer Name Role Phone Yuan Mccracken MD Primary Care Provider [phone] Encounter Details Date Type Department Care Team (Late st Contact Info) Description 01/26/2021 Transcribed Document [facility] [place] [address] [place] [address] ProviderPerry MD [address] [place], [place] [id number] Social History Tobacco Use Types Packs/Day Years Used Date Smoking Tobacco: Never Assessed Comments Unknown Sex and Gender Information Value Date Recorded Sex Assigned at Not on file Legal Sex Female 12:32 PM CDT Gender Identity Not on file Sexual Orientation Not on file documented as of this encounter Miscellaneous Notes * Cerner Conversion Note - Perry Nunes MD - 01/26/2021 3:00 AM CDT Nutrition Assessment Entered On: 01/26/2021 14:02 EDT Performed On: 01/26/2021 3:00 EDT by Martha Campo Dietitivaleria Nutrition Assessment Current Nutrition Regimen Comment : 01/26: RD f/u. Attempted to speak with pt but pt was with PT. Spoke to RN who reports no trouble eating, but was not able to tell me recent intakes. 01/21: Rec'd consult for PU>/=stg 2. w/ other discipline during visit. Pt eating okay; RN reports pt can be picky. Took some preferences per RN. Will add Toney and continue to monitor. Dx: life-threatening hyperkalemia, MISHA, L ureteral obstruction, BLE cellulitis PMH: HTN Meds: abx, Pepcid, nystatin, lasix, lactobacillus, KCl Labs: K+ 4.5, Cr 1.4, iCa 1.1, WBC 11.6 Skin: 3+ edema to LE, WOCN 01/20 - coccyx DTPI, LLE ulcer; MASD to breasts, abd, thighs, and sacrum GI: LBM 01/26, +BS Diet: regular + Toney BID Intakes: no recent intakes recorded (noted 50% of meals on 01/23) Ht; 64 Wt; 117.2 kg (01/16), 126 kg (01/25) BMI: 44.4 IBW: 54.5 kg Martha Campo Dietitian - 01/26/2021 15:58 EDT Nutrition Diagnoses Nutrient Intake : Increased nutrient needs Nutrient Intake Related to : skin integrity Nutrient Intake As Evidenced by : DTPI coccyx and ulcer to LLE Nutrient Intake Status : Active Weight : Obese, Class III Weight Related to : lifestyle Weight As Evidenced by : BMI=44.4 Weight Status : Active Martha Campo Dietitian - 01/26/2021 15:58 EDT Nutrition Interventions Meals and Snacks : General/Healthful diet Nutrition Supplement Therapy : Commercial beverage Martha Campo Dietitian - 01/26/2021 15:58 EDT Monitoring/Evaluation Fluid/Beverage Intake : Oral fluids Food Intake : Amount of food Weight Status : Weight Maintanence Gastrointestinal Function : Bowel Function Integumentary : Pressure Ulcer Status Martha Campo Dietitian - 01/26/2021 15:58 EDT Nutrition Recommendations Dietitian Recommendations : 1. Contine regular diet with Toney BID. Monitor and record intakes. Goal: >50% PO intake + ONS 2. Monitor elytes and replace prn. Goal: wnls 3. Monitor wt 1-2x/wk. Goal: no uninteded wt changes moderate risk Martha Campo Dietitian - 01/26/2021 15:58 EDT Electronically signed by Gayle Laguerre Conversion Necktie Centralizing Machine Operator Cerner at 12/07/2022 6:25 PM CDT documented in this encounter Plan of Treatment Not on file documented as of this encounter Visit Diagnoses Not on filedocumented in this encounter Care Teams Aircraft Body Repairer Relationship Specialty Start Date End Date Yuan Mccracken MD [address] [place] [phone] PCP - General Family Medicine 09/23/22 documented as of this encounter
--- OUTSIDE RECORDS SUMMARY | 2025-02-15 10:07 | XMS_ITS | Encounter Summary ---
Author Organization [facility] [employer] Address [address] [place] [address] Care Team Providers Care Work Counselor Name Role Phone Yuan Mccracken MD Primary Care Provider [phone] Encounter Details Date Type Department Care Team (Late st Contact Info) Description 01/28/2021 Transcribed Document [facility] [place] Medicine [address] [place] [address] ProviderPerry MD [address] [place], [place] [address] Social History Tobacco Use Types Packs/Day Years Used Date Smoking Tobacco: Never Assessed Comments Unknown Sex and Gender Information Value Date Recorded Sex Assigned at Not on file Legal Sex Female 12:32 PM CDT Gender Identity Not on file Sexual Orientation Not on file documented as of this encounter Miscellaneous Notes * Cerner Conversion Note - Perry Nunes MD - 01/28/2021 5:00 AM CDT Chart Check - Review Order Profile Entered On: 01/28/2021 5:39 EDT Performed On: 01/28/2021 5:00 EDT by ANTONIO OTERO, RN Chart Check Powerplans Initiated/Discontinued as Appropriate : Yes All Active Orders Reviewed : Yes ANTONIO OTERO RN - 01/28/2021 5:38 EDT documented in this encounter Plan of Treatment Not on file documented as of this encounter Visit Diagnoses Not on filedocumented in this encounter Care Teams Work Counselor Relationship Specialty Start Date End Date Yuan Mccracken MD [address] [place] [address] PCP - General Family Medicine 09/23/22 documented as of this encounter
--- OUTSIDE RECORDS SUMMARY | 2025-02-15 10:07 | XMS_ITS | Encounter Summary ---
Author Organization [facility] [employer] Address [address] [place] [address] Care Team Providers Care Residential Construction Instructor Name Role Phone Yuan Mccracken MD Primary Care Provider [phone] Encounter Details Date Type Department Care Team (Late st Contact Info) Description 01/26/2021 Transcribed Document [facility] [place] Family Medicine [address] [place] [address] ProviderPerry MD [address] [place] [address] Social History Tobacco Use Types Packs/Day Years Used Date Smoking Tobacco: Never Assessed Comments Unknown Sex and Gender Information Value Date Recorded Sex Assigned at Not on file Legal Sex Female 12:32 PM CDT Gender Identity Not on file Sexual Orientation Not on file documented as of this encounter Miscellaneous Notes * Cerner Conversion Note - Perry Nunes MD - 01/26/2021 3:47 AM CDT Bronchodilator Assessment Score, RT Entered On: 01/26/2021 3:48 EDT Performed On: 01/26/2021 3:47 EDT by SAMUEL ADDISON RRT Bronchodilator Assessment Score, RT Pulmonary Diagnosis/History : na Home Respiratory Medications : na Home Oxygen Comment : na Home CPAP Comment : na Pulmonary History, Bronchodilator Assessment Score : No pulmonary history Smoking History, Bronchodilator Assessment Score : No smoking history Chest Xray Results, Bronchodilator Assessment Sc : Clear or none Surgical Status, Bronchodilator Assessment Score : No surgery Respiratory Status, Bronchodilator Assessment Sc : Regular pattern - no dyspnea Breath Sounds, Bronchodilator Assessment Score : Clear Oxygen Level, Bronchodilator Assessment Score : 3-6 LPM Cough, Bronchodilator Assessment Score : Strong spontaneous/non-productive Assessment Score, Bronchodilator Assessment Score : 2 SAMUEL ADDISON, HELICOPTER PILOT - 01/26/2021 3:47 EDT documented in this encounter Plan of Treatment Not on file documented as of this encounter Visit Diagnoses Not on filedocumented in this encounter Care Teams Residential Construction Instructor Relationship Specialty Start Date End Date Yuan Mccracken MD [address] [place] [phone] PCP - General Family Medicine 09/23/22 documented as of this encounter
--- OUTSIDE RECORDS SUMMARY | 2025-02-15 10:07 | XMS_ITS | Encounter Summary ---
Author Organization [facility] Address [address] [place] [address] Care Team Providers Care Art Conservator Name Role Phone Yuan Mccracken MD Primary Care Provider Encounter Details Date Type Department Care Team (Late st Contact Info) Description 01/28/2021 Transcribed Document [facility] [place] [address] [place] [address] ProviderPerry MD [address], [place] [address] Social History Tobacco Use Types Packs/Day Years Used Date Smoking Tobacco: Never Assessed Comments Unknown Sex and Gender Information Value Date Recorded Sex Assigned at Not on file Legal Sex Female 12:32 PM CDT Gender Identity Not on file Sexual Orientation Not on file documented as of this encounter Miscellaneous Notes * Cerner Conversion Note - Perry Nunes MD - 01/28/2021 2:00 AM CDT Tour Bus Driver/Guide Details Entered On: 01/28/2021 2:31 EDT Performed On: 01/28/2021 2:00 EDT by ANTONIO OTERO RN Order Details Transport Mode Order Detail : Bed (including specialty) Isolation Precautions Order Detail : Containment Precautions Order Detail : 0 IV Order Detail : 1 Oxygen Order Detail : 1 Nurse Collect Order Detail : 0 Lift/Transfer : Maximal assist Central Line Order Detail : No Room Service : Needs Assistance Arterial Line : No Patient Needs Meds Crushed/Liquid : No ANTONIO OTERO RN - 01/28/2021 2:30 EDT documented in this encounter Plan of Treatment Not on file documented as of this encounter Visit Diagnoses Not on filedocumented in this encounter Care Teams Art Conservator Relationship Specialty Start Date End Date Yuan Mccracken MD [address] [place] [phone] PCP - General Family Medicine 09/23/22 documented as of this encounter
--- OUTSIDE RECORDS SUMMARY | 2025-02-15 10:07 | XMS_ITS | Encounter Summary ---
Author Organization [facility] [employer] Address [address] [place] [address] Care Team Providers Care Animal Husbandry Manager Name Role Phone Yuan Mccracken MD Primary Care Provider [phone] Encounter Details Date Type Department Care Team (Late st Contact Info) Description 01/16/2021 Transcribed Document [facility] [place] Family Medicine [address] [place] [address] ProviderPerry MD [address], [place] [address] Social History Tobacco Use Types Packs/Day Years Used Date Smoking Tobacco: Never Assessed Comments Unknown Sex and Gender Information Value Date Recorded Sex Assigned at Not on file Legal Sex Female 12:32 PM CDT Gender Identity Not on file Sexual Orientation Not on file documented as of this encounter Miscellaneous Notes * Cerner Conversion Note - Perry Nunes MD - 01/16/2021 8:26 PM CDT Admission History, Adult Entered On: 01/16/2021 20:50 EDT Performed On: 01/16/2021 20:26 EDT by Annamaria Leyva RN Advance Directive Patient has Advance Directive *Q : No, patient refuses Advance Directive information Annamaria Leyva RN - 01/16/2021 20:46 EDT Anesthesia/Transfusion History Family History of Anesthesia Reaction : No prior transfusion(s) Transfusion History : Prior anesthesia without reaction Family History of Anesthesia Reaction : None Annamaria Leyva RN - 01/16/2021 20:46 EDT Functional Assessment Living Situation : Home Patient Lives With : Alone Current Daily Living Assistance : ADLs, Housekeeping, Meals Sensory Deficits : Other: glasses Mobility Assistance Prior to Admission : Partial assistance DARNELL Hx Falls Immediate/Within 3 Months : No Current Home Treatments : None Annamaria Leyva RN - 01/16/2021 20:46 EDT General Info Arrived From : Emergency department Mode of Arrival on Unit : Stretcher Legal Guardian : Unaccompanied Contact Password : Annamaria Vivas RN - 01/16/2021 20:59 EDT Support Person/Pt Rep Contact Information : Dion avalos, Annamaria Leyva RN - 01/16/2021 21:07 EDT Want Family/Rep/Phys Notified of Admit : Annamaria Roberts RN - 01/16/2021 20:59 EDT Emergency Contact #1 : Katty Wright RN - 01/17/2021 9:47 EDT Emergency Contact #1 Emergency Contact #1 Relationship : Husbands Karel Emergency Contact #2 : Andreina Dunlapock Emergency Contact #2 Emergency Contact #2 Relationship : Sister Chief Complaint : Via EMS for SOA x 2-3 weeks, increased 2-3 days. Pt denies medical treatment for years. Rec'd solumedrol 125mg IM and xopenex neb en route. Reports mild chest discomfort on arrival. Patrick leg ulcers Information Obtained From : Patient Primary Language : [place] Communication Barrier : None Jelly Filter Tender Needed : Annamaria Roberts RN - 01/16/2021 20:59 EDT Fall Risk Scales ABCs Fall Injury Risk Identification : None Injury Moderate to High Risk Interventions : Bed alarm on DARNELL Hx Falls Immediate/Within 3 Months : No Darnell Secondary Diagnosis : Yes DARNELL Use of Ambulatory Aid : Bed rest/Nurse assist DARNELL IV Therapy or IV Access : Yes Darnell Gait/Transferring : Weak Darnell Mental Status : Oriented to own ability Darnell Fall Risk Score : 45 DARNELL Fall Scale Risk Level : 25-45 Medium Risk [place] Fall Interventions : Adequate lighting, Assistive devices within reach, Bed in low position, Call device within reach, Hourly comfort/safety rounds, Personal items within reach, Reinforced to call for assistance before getting out of bed, Room free of clutter/spills, Upper side-rails up, Wheels locked, Wires/Cords secured Fall Risk Scale Calc Temp : 0 Annamaria Leyva RN - 01/16/2021 20:59 EDT Health Histories Smoking Status : Former smoker, quit more than 30 days ago Smokeless Tobacco Status : Never Annamaria Leyva RN - 01/16/2021 20:59 EDT Social History (As Of: 01/16/2021 21:07:14 EDT) Tobacco: Comments: 01/16/2021 19:16 - DAWNA GAN PA-C: nonsmoker (Last Updated: 01/16/2021 19:16:56 EDT by DAWNA GAN PA-C) Home/Environment: Living situation: Home/Independent. (Last Updated: 01/16/2021 19:16:47 EDT by DAWNA GAN PA-C) Height and Weight, Clinical Dosing Height Source : Stated Height Entry Format : [place] Height, Feet : 5 ft(Converted to: 152 cm, 60 Inch) Height, Inches : 4 Inch(Converted to: 0 ft 4 Inch, 10.16 cm) Clinical Height : 162.56 cm Weight Source : Bed scale Weight Entry Format : Metric, kilograms Weight, Kilograms : 117.2 kg(Converted to: 258 lb 6 oz) Clinical Dosing Weight : 117.2 kg Body Surface Area (BSA) : 2.18 m2 Body Mass Index : 44.4 kg/m2 (>HHI) [place] Body Weight : 54 kg Annamaria Leyva RN - 01/16/2021 20:59 EDT Infectious Disease History Has the patient ever been tested for COVID-19? : No, Patient stated Does patient have symptoms of COVID-19? : Yes COVID19 Screening : No Experiencing Infectious Disease Symptoms : Difficulty breathing Physical contact outside [place] in the last 30 days : No Infectious Disease History : Chicken pox/Shingles, Measles, Mumps, Pertussis (Whooping cough) Tuberculosis Symptoms : None Annamaria Leyva RN - 01/16/2021 20:59 EDT Influenza Vaccine Asmt, Adult Previous Vaccines from Immunization Schedule : No qualifying data available. Influenza Immunization, Current Season : No Inactivated Flu Vaccine Contraindications : No contraindications to inactivated influenza vaccine Transplant Workup/Recent Transplant : No Order for Influenza Vaccine : Order for influenza vaccine sent to pharmacy Annamaria Leyva RN - 01/16/2021 20:59 EDT Pneumococcal Vaccine Previous Vaccines from Immunization Schedule : No qualifying data available. Pneumonia Immunization Received : No Pneumococcal Risk Assessment < Age 65 : None Annamaria Leyva RN - 01/16/2021 20:59 EDT Order Details Transport Mode Order Detail : Bed (including specialty) Isolation Precautions Order Detail : Containment Precautions Order Detail : 0 Oxygen Order Detail : 1 Nurse Collect Order Detail : 1 Lift/Transfer : Maximal assist Central Line Order Detail : No Room Service : Needs Assistance Patient Needs Meds Crushed/Liquid : No Annamaria Leyva RN - 01/16/2021 20:59 EDT Nutrition History Eating Poorly Due to Decreased Appetite : No Unplanned Weight Loss in Past 3-6 Months : No Malnutrition Screening Tool Total(mal) : 0 Malnutrition Screening Tool Risk Level : Patient not at risk Annamaria Leyva RN - 01/16/2021 20:59 EDT [place] Suicide Severity Rating Scale (C-SSRS) CSSRS Past Month Wish to be : No CSSRS Past Month Suicidal Thoughts : No CSSRS Lifetime Suicide Behavior : No Suicide Severity Rating Score : 0 Suicide Severity Rating : No Additional Care Required at this time Annamaria Leyva RN - 01/17/2021 22:05 EDT Psychosocial History Currently in Unsafe Situation : No Annamaria Leyva RN - 01/16/2021 20:59 EDT Sleep Apnea Risk Assmt Hx of Obstructive Sleep Apnea Diagnosis : No Snore Loudly : No Tired, Fatigued, or Sleepy During Day : No Observed Stopping Breathing During Sleep : No Have/Are Being Treated for Hypertension : No BMI Greater Than 35 kg/m2 : No Age over 50 Years Old : Yes Neck Circumference Greater Than 40 cm : No Gender Male : No STOP-BANG Sleep Apnea Risk Level Score : 1 Annamaria Leyva RN - 01/16/2021 20:59 EDT Valuables and Belongings Valuables and Belongings : Personal devices Personal Device Disposition : Bedside, Declines to send to security/safe Personal Devices : Dentures, upper Annamaria Leyva RN - 01/16/2021 20:59 EDT Electronically signed by Carlotta [facility] Conversion Protective Signal Operator Cerner at 12/07/2022 6:10 PM CDT documented in this encounter Plan of Treatment Not on file documented as of this encounter Visit Diagnoses Not on filedocumented in this encounter Care Teams Animal Husbandry Manager Relationship Specialty Start Date End Date Yuan Mccracken MD [address] [place] [phone] PCP - General Family Medicine 09/23/22 documented as of this encounter
--- OUTSIDE RECORDS SUMMARY | 2025-02-15 10:07 | XMS_ITS | Encounter Summary ---
Author Organization [facility] In iatives Address [address] [place] [address] Care Team Providers Care Snack Steward Name Role Phone Yuan Mccracken MD Primary Care Provider [phone] Encounter Details Date Type Department Care Team (Late st Contact Info) Description 01/27/2021 Transcribed Document [facility] [address] [place] [address] Casandra Ochoa MD [address] [place] [phone] Social History Tobacco Use Types Packs/Day Years Used Date Smoking Tobacco: Never Assessed Comments Unknown Sex and Gender Information Value Date Recorded Sex Assigned at Not on file Legal Sex Female 12:32 PM CDT Gender Identity Not on file Sexual Orientation Not on file documented as of this encounter Miscellaneous Notes * Cerner Conversion Note - Casandra Ochoa MD - 01/27/2021 4:49 PM EDT Patient: CHANI VELASQUEZ Age: 60 Years Sex: Female : 1960 Subjective Seen and examined date of service 01/27/2021. Reports breathing has improved today. No other medical concerns. Endorses feeling weak. Patient denies having fever/chills, cough, chest pain, palpitations, n/v/d, abdominal pain, and dysuria. Vital Signs T: 36.7 ??C TMIN: 36.3 ??C TMAX: 36.8 ??C HR: 66(Monitored) RR: 16 BP: 129/79 SpO2: 96% Oxygen Settings (Last) Oxygen Therapy Mode: Nasal cannula (01/27/21 08:46:00) Oxygen Flow Rate: 2 Liter/Min (01/27/21 08:53:00) Intake & Output Totals Last 24 Hours (7a-7a) Input Total: 532.96 mL Output Total: 3000 mL Balance: -2467.04 mL Physical Exam General: [Alert and oriented, well nourished, morbidly obese, no acute distress]. Neurologic: [Awake, alert, and oriented]. Eye: [Normal conjunctiva]. HENT: [Normocephalic, normal hearing, moist oral mucosa, no scleral icterus]. Neck: [Supple, no JVD]. Lungs: [Lungs clear to auscultation, non-labored respiration]. Heart: [Normal rate, regular rhythm, no murmur, 2/3+ pitting edema in lower legs with weeping chronic wounds bilaterally, resolving 1+ pitting edema in arms bilaterally]. Abdomen: [...] hx, with suspected OHS with BMI 44.4 -Scheduled nebs, neph inc diuresis on 01/26, will keep BID for now -Continuous oxygen monitoring Corynebacterium Pneumonia of left [...] Eliquis Full code DISPO: Deconditioned, lives alone. ID Dr. Mares reports PO meds at discharge. CM investigating SNF, though NSOC complicated by patient not having insurance with medicaid pending. Discussed with CM. Time spent: 30 minutes. I, Devorah Barr PA-C, personally evaluated the patient forming the plan of care above. Patient discussed with Dr. Ochoa who agrees with the plan of care above. VTE Prophylaxis - Medical Apixaban 5 mg, Oral, Tab, [id number], Routine, Start 01/21/21 10:00:00 EDT, 01/21/21 9:43:00 [...] RT_Q4H Eliquis, 5 mg= 1 Tab, Oral, [id number] Lac-Hydrin 12% topical lotion, 1 Application, Topical, [...] mg= 1 Tab, Oral, BID, PRN nystatin, [id number] Units= 5 mL, Swish and Swallow , [...] 100 mL Diagnostic Results No Radiology Results Found. Lab Results Test Name Test Result Date/Time [...] Lymph # 1.41 x10(3)/uL 01/27/2021 03:19 EDT Mohave % 6.4 % 01/27/2021 03:19 EDT Mohave # 0.69 K/uL 01/27/2021 03:19 EDT Eos % 1.7 % 01/27/2021 03:19 EDT Eos # 0.18 x10(3)/uL 01/27/2021 03:19 EDT Baso % 0.4 % 01/27/2021 03:19 EDT Baso # 0.04 x10(3)/uL 01/27/2021 03:19 EDT Slide Review No 01/27/2021 03:19 EDT IG# 0.14 x10(3)/uL (High) 01/27/2021 03:19 EDT IG% 1.30 % (High) 01/27/2021 03:19 EDT documented in this encounter Plan of Treatment Not on file documented as of this encounter Visit Diagnoses Not on filedocumented in this encounter Care Teams Snack Steward Relationship Specialty Start Date End Date Yuan Mccracken MD [address] [place] [phone] PCP - General Family Medicine 09/23/22 documented as of this encounter
--- OUTSIDE RECORDS SUMMARY | 2025-02-15 10:07 | XMS_ITS | Encounter Summary ---
Author Organization [facility] Init iatives Address [address] [place] [address] Care Team Providers Care Vba Programmer Name Role Phone Yuan Mccracken MD Primary Care Provider [phone] Encounter Details Date Type Department Care Team (Late st Contact Info) Description 01/16/2021 Transcribed Document [facility] Family Medicine [address] [place] [address] ProviderPerry MD [address], [place] [address] Social History Tobacco Use Types Packs/Day Years Used Date Smoking Tobacco: Never Assessed Comments Unknown Sex and Gender Information Value Date Recorded Sex Assigned at Not on file Legal Sex Female 12:32 PM CDT Gender Identity Not on file Sexual Orientation Not on file documented as of this encounter Miscellaneous Notes * Cerner Conversion Note - Perry ProviderMD - 01/16/2021 7:55 PM CDT Evaluation, Occupational Therapy Entered On: 01/19/2021 12:59 EDT Performed On: 01/19/2021 11:25 EDT by Karla Ramon OCCUPATIONAL THERAPIST NON-EXEMPT General Information, OT Visit Type, OT : Initial evaluation Patient Orders : Order Date Order Ordering 01/16/2021 19:55 OT Evaluation and Treatment Ordered By: PRINCESS RIVERA MD Active Diagnoses : 01/16/2021 12:00 Acidosis 01/16/2021 12:00 Cellulitis of unspecified part of limb 01/16/2021 12:00 General medical 01/16/2021 12:00 Hyperkalemia 01/16/2021 12:00 Hyperventilation 01/16/2021 12:00 Other disorders of electrolyte and fluid balance, not elsewhere classified 01/16/2021 12:00 Other specified abnormal findings of blood chemistry 01/16/2021 12:00 Shortness of breath Therapy Diagnosis, OT : Decreased I with ADLs and functional mobility due to weakness. Onset of Problem, OT : 01/19/2021 EDT Admission Date : 01/16/2021 19:34 Co-treated by, OT : Physical Therapist Personal Devices : Personal Devices Dentures, upper Assistive Devices : Assistive Devices No Devices Recorded Isolation Maintained : Contact, Containment General Information Comment, OT : Dx: B LE cellulitis, hyperkalemia, dyspnea, pneumonia, bed bugs upon admission Karla Ramon OCCUPATIONAL THERAPIST NON-EXEMPT - 01/19/2021 12:47 EDT General Status Patient Received Status : Supine in bed, HOB elevated Treatment Start Time : 01/19/2021 10:53 EDT Patient Left Status : Up in chair, RN/PCT informed, All needs met and within reach RN/PCT Informed Comment : STEPHEN averyed tx Treatment End Time : 01/19/2021 11:25 EDT Treatment Time : 32 Minute(s) Karla Ramon OCCUPATIONAL THERAPIST NON-EXEMPT - 01/19/2021 12:47 EDT History and Environment, OT Living Situation, Therapy : Home Patient Lives With : Alone, Other: spouse lives with her but is currently at rehab in a snf Persons Assisting Patient at Home : Other: Sister lives nearby and assists at times. Persons Providing Information : Patient Home Equipment, Therapy : Other: RW she has is her husbands Home Setup : One story Stairs : No Ramp : Yes Karla Ramon OCCUPATIONAL THERAPIST NON-EXEMPT - 01/19/2021 12:47 EDT Prior LOF Bathing, OT : Independent Prior LOF Bed Mobility : Independent Prior LOF Upper Body Dressing, OT : Independent Prior LOF Lower Body Dressing, OT : Independent Prior LOF Toileting : Independent Prior LOF Transfer : Independent Prior LOF Grooming, OT : Independent Karal Ramon OCCUPATIONAL THERAPIST NON-EXEMPT - 01/19/2021 12:47 EDT Prior LOF Assist with ADL Comment : Pt was mostly I with ADls and functional mobility without AD. States she occasionally required assist from her sister who lives nearby. Karla Ramon OCCUPATIONAL THERAPIST NON-EXEMPT - 01/19/2021 12:47 EDT Upper Extremity Right UE Active ROM : WFL Right UE Strength : WFL Left UE Active ROM : WFL Left UE Strength : WFL Karla Ramon OCCUPATIONAL THERAPIST NON-EXEMPT - 01/19/2021 12:47 EDT Right Upper Extremity MMT Shoulder Flexion 0-180 : 3+/fair Shoulder Extension 0-60 : 3+/fair Karla Ramon OCCUPATIONAL THERAPIST NON-EXEMPT - 01/19/2021 12:47 EDT Left Upper Extremity MMT Shoulder Flexion 0-180 : 3+/fair Shoulder Extension 0-60 : 3+/fair Karla Ramon OCCUPATIONAL THERAPIST NON-EXEMPT - 01/19/2021 12:47 EDT Self Care/Home Management, OT Self Feeding Assist Level, OT : Supervision or set-up Grooming Assist Level, OT : Assist, minimal Upper Body Dressing Assist Level, OT : Assist, minimal Lower Body Dressing Assist Level, OT : Assist, maximal Toileting Assist Level : Assist, maximal Toilet Transfer Assist Level : Assist, minimal Toilet Transfer Comment : Min A x2 squat pivot Karla Ramon OCCUPATIONAL THERAPIST NON-EXEMPT - 01/19/2021 12:47 EDT Functional Mobility Mobility Grid Supine to Sit : Rehab Moderate assistance Bed to Chair : Rehab Minimal assistance (Comment: x2 [Karla Ramon OCCUPATIONAL THERAPIST NON-EXEMPT - 01/19/2021 12:47 EDT] ) Karla Ramon OCCUPATIONAL THERAPIST NON-EXEMPT - 01/19/2021 12:47 EDT Cognition Assessment, OT Orientation : Oriented x 4 Karla Ramon OCCUPATIONAL THERAPIST SANDRA-EXEMPT - 01/19/2021 12:47 EDT Indication Assessment, OT Occupational Therapy Indicated : Yes Problem List, OT : Impaired, bed mobility, Impaired, activities daily living, Impaired, endurance tolerance, Impaired functional mobility, Impaired, strength, Impaired, transfers Karla Ramon OCCUPATIONAL THERAPIST NON-EXEMPT - 01/19/2021 12:47 EDT Plan of Care, OT OT Tx Plan/Goals Established w Patient : Yes OT Frequency Rehab : Five days per week OT Duration Rehab : Fourteen days OT Treatments Planned : Activities of daily living, Functional mobility training, Safety education, Therapeutic activities, Therapeutic exercises Karla Ramon OCCUPATIONAL THERAPIST NON-EXEMPT - 01/19/2021 12:47 EDT Fish Processor Goals, OT Grooming LTG Grid Goal #1 Activity : Grooming Assist : Independent, modified Date to Meet : 02/02/2021 EDT Goal Status : Initial goal Comment : seated EOB Karla Ramon OCCUPATIONAL THERAPIST NON-EXEMPT - 01/19/2021 12:47 EDT Dressing, Lower Body LTG Grid Goal #1 Activity : Dressing, Lower Body Assist : Assist, minimal Equipment : Other: AE as needed Date to Meet : 02/02/2021 EDT Goal Status : Initial goal Karla Ramon OCCUPATIONAL THERAPIST NON-EXEMPT - 01/19/2021 12:47 EDT Toilet Transfer LTG Grid Goal #1 Activity : Toilet Transfer, Stand Pivot Sit Assist : Supervision or set up Date to Meet : 02/02/2021 EDT Goal Status : Initial goal Karla Ramon OCCUPATIONAL THERAPIST NON-EXEMPT - 01/19/2021 12:47 EDT Treatment Note Subjective Comment : Pt agreeable to therapy evaluation. Patient's Response to Treatment : Fair. Pt reported nausea and increasing dizziness when seated EOB. BP: 144/68 initially, 123/76 at end of session ON 3.5 L O2 - 97% Additional Objective Information : Pt transferred supine to sit EOB with mod A and extra time to complete due to SOB. Pt sat EOB x10 min with pt reporting nausea and dizziness. Max A to don socks. Pt with weeping from B LEs. Able to stand pivot transfer to reclining chair with min A x2. Pt set up with call light and all needs within reach. Assessment : Patient would benefit from skilled OT while inpatient to increase independence and safety with ADLs and functional mobility. Plan for Treatment : See goals. Karla Ramon OCCUPATIONAL THERAPIST NON-EXEMPT - 01/19/2021 12:47 EDT Pain Assessment Pain Scaled Used : 0-10 Pain scale Pain Score Pre-Intervention : 0 Pain Comment : Pt stated no pain initially, but yelled out in pain with touch to L LE. Karla Ramon OCCUPATIONAL THERAPIST NON-EXEMPT - 01/19/2021 12:47 EDT Image 1 - Images currently included in the form version of this document have not been included in the text rendition version of the form. Anticipated Discharge Needs, OT/PT Anticipated Discharge to : Other: Home with HH versus rehab pending progress Karla Ramon OCCUPATIONAL THERAPIST NON-EXEMPT - 01/19/2021 12:47 EDT [place] OT Charges OT Selfcare/Hm Mgmt Ea 15 Min : 1 OT Eval Moderate Complexity : 1 Karla Ramon OCCUPATIONAL THERAPIST NON-EXEMPT - 01/19/2021 12:47 EDT Electronically signed by Carlotta [facility] Conversion Glass Products Inspector Cerner at 12/07/2022 6:30 PM CDT documented in this encounter Plan of Treatment Not on file documented as of this encounter Visit Diagnoses Not on filedocumented in this encounter Care Teams Vba Programmer Relationship Specialty Start Date End Date Yuan Mccracken [place] [address] PCP - General Family Medicine 09/23/22 documented as of this encounter
--- OUTSIDE RECORDS SUMMARY | 2025-02-15 10:07 | XMS_ITS | Encounter Summary ---
Author Organization [facility] Init iatives Address [address] [place] [address] Care Team Providers Care Forklift Driver Name Role Phone Yuan Mccracken MD Primary Care Provider [phone] Encounter Details Date Type Department Care Team (Late st Contact Info) Description 01/26/2021 Transcribed Document [facility] Family Medicine [address] [place] [address] ProviderPerry MD [address] [place] [address] Social History Tobacco Use Types Packs/Day Years Used Date Smoking Tobacco: Never Assessed Comments Unknown Sex and Gender Information Value Date Recorded Sex Assigned at Not on file Legal Sex Female 12:32 PM CDT Gender Identity Not on file Sexual Orientation Not on file documented as of this encounter Miscellaneous Notes * Cerner Conversion Note - Perry Nunes MD - 01/26/2021 8:45 AM CDT UM Authorization Entered On: 01/26/2021 8:45 EDT Performed On: 01/26/2021 8:45 EDT by DWIGHT PERALTA RN-Utilization Review Primary Insurance Authorization Authorization and Policy Numbers : Insurance 1 Health Plan: MEDICAID PENDING Policy Number: [id number] Authorization Number: Insurance Primary Name : MEDICAID PENDING Policy Number: [id number] Authorized Service Begin Date-Primary : 01/16/2021 EDT Authorization Comments-Primary : MEDICAID PENDING Historical Authorization Comments-Primary : Comment 1: MEDICAID PENDING (DWIGHT PERALTA, RN-Utilization Review 01/23/2021 09:42) Comment 2: SELF PAY (DWIGHT PERALTA, RN-Utilization Review 01/22/2021 08:29) Comment 3: SELF PAY (DWIGHT PERALTA, RN-Utilization Review 01/21/2021 08:19) Comment 4: Self pay at the time of review (CARMEN MARLOW RN 01/20/2021 13:51) DWIGHT PERALTA, RN-Utilization Review - 01/26/2021 8:45 EDT Electronically signed by Carlotta [facility] Conversion Financial Operations Analyst Cerner at 12/07/2022 6:30 PM CDT documented in this encounter Plan of Treatment Not on file documented as of this encounter Visit Diagnoses Not on filedocumented in this encounter Care Teams Forklift Driver Relationship Specialty Start Date End Date Yuan Mccracken MD [address] [place] [phone] PCP - General Family Medicine 09/23/22 documented as of this encounter
--- OUTSIDE RECORDS SUMMARY | 2025-02-15 10:07 | XMS_ITS | Encounter Summary ---
Author Organization [facility] In iatives Address [address] [place] [address] Care Team Providers Care Operations Trainer Name Role Phone Yuan Mccracken MD Primary Care Provider [phone] Encounter Details Date Type Department Care Team (Late st Contact Info) Description 01/21/2021 Transcribed Document [facility] [place] [facility] [place] [address] ProviderPerry MD [address] [place], [place] [id number] Social History Tobacco Use Types Packs/Day Years Used Date Smoking Tobacco: Never Assessed Comments Unknown Sex and Gender Information Value Date Recorded Sex Assigned at Not on file Legal Sex Female 12:32 PM CDT Gender Identity Not on file Sexual Orientation Not on file documented as of this encounter Miscellaneous Notes * Cerner Conversion Note - Perry Nunes MD - 01/21/2021 3:37 PM CDT Patient: CHANI VELASQUEZ Age: 60 years Sex: Female : 1960 Associated Diagnoses: None Author: KIKO WANG, PharmD, BCPS 60yo female with RLE cellulitis starting on vancomycin. Rx asked to follow for vancomycin dosing. Current ABX 1. Vancomycin per RX 2. Doxycycline 100mg PO BID 3. Zosyn 3.375g IV q6h Vitals Signs (last 24 hrs) Last Charted Minimum Maximum Temp 99.1 (TOM 02 08:00) 98.0 (TOM 02 04:00) 99.1 (JAN 20 16:00) Apical HR 81 (TOM 02 10:41) 81 (TOM 02 10:41) H 102 (TOM 01 16:40) Mon HR 75 (TOM 02 15:00) 66 (TOM 02 12:35) 119 (TOM 02 11:00) Resp Rate H 31 (JAN 21 15:00) H 27 (JAN 21 04:00) H 51 (JAN 21 02:00) SBP 115 (JAN 21 15:00) 107 (JAN 21 13:00) H 152 (JAN 21 11:00) DBP 66 (JAN 21 15:00) L 59 (JAN 20 21:00) 84 (JAN 21 00:00) MAP 82 (JAN 21 15:00) 81 (JAN 21 14:00) 109 (JAN 02 00:00) SpO2 98 (JAN 21 15:00) L 92 (JAN 20 16:00) 99 (JAN 21 12:00) Labs: Labs (Last four charted values) WBC H 20.0 (JAN 02) H 16.5 (JAN 20) H 14.2 (JAN 20) H 13.0 (JANUARY 19) HB L 8.7 (JAN 02) L 9.2 (JAN 01) L 8.7 (JAN 20) L 8.4 (JANUARY 19) HCT L 28.2 (TOM 02) L 29.6 (JAN 20) L 27.4 (JAN 20) L 26.2 (JANUARY 19) Plt 322 (JAN 02) 305 (JAN 20) 297 (JAN 20) 266 (JANUARY 19) Na 137 (JAN 02) 139 (JAN 20) 141 (JANUARY 19) 141 (JANUARY 18) K 3.9 (JAN 02) L 3.2 (JAN 02) L 3.1 (JAN 01) 3.5 (JANUARY 19) Cl 103 (JAN 02) 105 (JAN 20) 107 (JANUARY 19) 105 (JANUARY 18) CO2 29 (JAN 02) 26 (JAN 20) 29 (JANUARY 19) 29 (JANUARY 18) BUN H 34 (JAN 02) H 48 (JAN 01) H 70 (JANUARY 19) C 89 (JANUARY 18) Cr H 1.40 (JAN 02) H 1.60 (JAN 20) H 1.90 (JANUARY 19) H 2.50 (JANUARY 18) Glu R H 111 (JAN 21) H 125 (JAN 20) H 139 (JANUARY 19) H 139 (JANUARY 18) Ca L 7.2 (JAN 21) L 7.5 (JAN 20) L 7.3 (JANUARY 19) L 7.2 (JANUARY 18) Lactic 2.0 (JANUARY 19) C 2.5 (JANUARY 17) C 2.3 (JANUARY 17) C 2.6 (JANUARY 16) PT 11.9 (JAN 20) INR 1.1 (JAN 20) AST H 50 (JANUARY 19) 28 (JANUARY 16) ALT 36 (JANUARY 19) 23 (JANUARY 16) ALK P 86 (JANUARY 19) 128 (JANUARY 16) T Bili 0.5 (JANUARY 19) 0.5 (JANUARY 16) PTN L 6.2 (JANUARY 19) H 9.3 (JANUARY 16) ALB L 1.4 (JANUARY 19) L 1.4 (JANUARY 18) L 2.1 (JANUARY 16) Troponin <0.015 (JANUARY 16) wt. 117kg Est CrCl = 57ml/min/m2 I/O - 1511/2130 C/x -01/18 Sputum - Corynebacterium A/P 1. Based upon age wt and renal function will start vancomycin 1750mg IV q24h to target a trough of 10-20 .2. Trough level prior to dose on 01/23 @ 1600, Hold if >21 3. Other meds adjusted appropriately at this time, will monitor for changes. Rx will follow, Kiko Wang,FrankyD,BCPS,BCCCP #[id number] Electronically signed by [facility], [facility] Conversion Electrical Prospecting Observer Cerner at 12/07/2022 6:30 PM CDT documented in this encounter Plan of Treatment Not on file documented as of this encounter Visit Diagnoses Not on filedocumented in this encounter Care Teams Operations Trainer Relationship Specialty Start Date End Date Yuan Mccracken MD [facility] [place] [phone] PCP - General Family Medicine 09/23/22 documented as of this encounter
--- OUTSIDE RECORDS SUMMARY | 2025-02-15 10:07 | XMS_ITS | Encounter Summary ---
Author Organization [facility] In iatives Address [address] [place] [address] Care Team Providers Care Financial Planning Advisor Name Role Phone Yuan Mccracken MD Primary Care Provider [phone] Encounter Details Date Type Department Care Team (Late st Contact Info) Description 01/26/2021 Transcribed Document [facility] Family Medicine [address] [place] [address] ProviderPerry MD [address], [place] [address] Social History Tobacco Use Types Packs/Day Years Used Date Smoking Tobacco: Never Assessed Comments Unknown Sex and Gender Information Value Date Recorded Sex Assigned at Not on file Legal Sex Female 12:32 PM CDT Gender Identity Not on file Sexual Orientation Not on file documented as of this encounter Miscellaneous Notes * Cerner Conversion Note - Perry Nunes MD - 01/26/2021 3:36 PM CDT Meds to Bed Enrollment Entered On: 01/26/2021 15:36 EDT Performed On: 01/26/2021 15:36 EDT by Michelle Jacobson PHARMACIST-SPECIALIST CLINICAL Meds to Bed Enrollment Patient Enrollment Decision: : Yes/enroll in meds to bed program Michelle Jacobson PHARMACIST-SPECIALIST CLINICAL - 01/26/2021 15:36 EDT Electronically signed by Gayle Laguerre Conversion Die Cutting Machine Operator Cerner at 12/07/2022 6:30 PM CDT documented in this encounter Plan of Treatment Not on file documented as of this encounter Visit Diagnoses Not on filedocumented in this encounter Care Teams Financial Planning Advisor Relationship Specialty Start Date End Date Yuan Mccracken MD [address] [place] [phone] PCP - General Family Medicine 09/23/22 documented as of this encounter
--- OUTSIDE RECORDS SUMMARY | 2025-02-15 10:07 | XMS_ITS | Encounter Summary ---
Author Organization [facility] Init iatives Address [address] [place] [address] Care Team Providers Care Plane Runner Name Role Phone Yuan Mccracken MD Primary Care Provider [phone] Encounter Details Date Type Department Care Team (Late st Contact Info) Description 01/27/2021 Transcribed Document [facility] Family Medicine [address] [place] [address] ProviderPerry MD [address] [place] [address] Social History Tobacco Use Types Packs/Day Years Used Date Smoking Tobacco: Never Assessed Comments Unknown Sex and Gender Information Value Date Recorded Sex Assigned at Not on file Legal Sex Female 12:32 PM CDT Gender Identity Not on file Sexual Orientation Not on file documented as of this encounter Miscellaneous Notes * Cerner Conversion Note - Perry Nunes MD - 01/27/2021 4:13 PM CDT Discharge Summary, PT Entered On: 01/27/2021 16:13 EDT Performed On: 01/27/2021 16:13 EDT by CESIA WILSON, PT Discharge Summary Discharge Summary Comment, PT : As of 01/27 noted 1.0 x 0.5 small pink blanchable sacral wound; no cont acute skilled PTx services for MIST tx at this time; pt met 1/ STG and 1/2 LTG CESIA WILSON, PT - 01/27/2021 16:14 EDT Reason for Discharge : Other: d/c MIST CESIA WILSON, PT - 01/27/2021 16:13 EDT Short Term Goals Mobility/Bed Mobility STG PT Grid Goal #1 Goal #4 Activity : Supine to sit Assist : Assist, minimal Date to Meet : 01/26/2021 EDT Goal Status : Goal met Date Met : 01/21/2021 EDT Comment : See wound goals for MIST and compression wraps below WILSON, CESIA, PT - 01/27/2021 16:14 EDT WILSON, CESIA, PT - 01/27/2021 16:14 EDT Ambulation STG Grid Goal #1 Device : Walker, front wheel Distance : 50 ft Assist : Assist, minimal Date to Meet : 01/26/2021 EDT Goal Status : Intial Goal WILSON, CESIA, PT - 01/27/2021 16:14 EDT Other PT STG Grid Goal #1 Goal #2 Goal : Open area to measure 1.5cmX0.8cm BLE malleoli will be < 29.0cm Date to Meet : 01/28/2021 EDT 01/28/2021 EDT Goal Status : Goal met Progressing, continue Date Met : 01/26/2021 EDT WILSON, CESIA, PT - 01/27/2021 16:14 EDT WILSON, CESIA, PT - 01/27/2021 16:14 EDT Assisted Goals Mobility/Bed Mobility LTG PT Grid Goal #1 Goal #2 Goal #4 Activity : Supine to sit Sit to stand Assist : Independent, modified Independent, modified Date to Meet : 02/02/2021 EDT 02/02/2021 EDT Goal Status : Progressing, continue Progressing, continue Comment : See wound goals for MIST and compression wraps below WILSON, CESIA, PT - 01/27/2021 16:14 EDT WILSON, CESIA, PT - 01/27/2021 16:14 EDT WILSON, CESIA, PT - 01/27/2021 16:14 EDT Ambulation LTG Grid Goal #1 Device : Walker, front wheel Distance : 150 ft Assist : Independent, modified Date to Meet : 02/02/2021 EDT Goal Status : Progressing, continue WILSON, CESIA, PT - 01/27/2021 16:14 EDT Other PT LTG Grid Goal #1 Goal #2 Goal #3 Other : Open area to measure 1cmX0.5cm BLE fullest calf will be < 51.0cm Coccyx wound will measure 0.5 x 0.5 cm or less Date to Meet : 02/04/2021 EDT 02/04/2021 EDT 02/09/2021 EDT Goal Status : Goal met Goal met Not met Date Met : 01/26/2021 EDT 01/25/2021 EDT WILSON, CESIA, PT - 01/27/2021 16:14 EDT WILSON, CESIA, PT - 01/27/2021 16:14 EDT WILSON, CESIA, PT - 01/27/2021 16:14 EDT Electronically signed by [facility], [facility] Conversion Sexual Assault Nurse Cerner at 12/07/2022 6:14 PM CDT documented in this encounter Plan of Treatment Not on file documented as of this encounter Visit Diagnoses Not on filedocumented in this encounter Care Teams Plane Runner Relationship Specialty Start Date End Date Yuan Mccracken MD [address] [place] [phone] PCP - General Family Medicine 09/23/22 documented as of this encounter
--- OUTSIDE RECORDS SUMMARY | 2025-02-15 10:07 | XMS_ITS | Encounter Summary ---
Author Organization [facility] Init iatives Address [address] [place] [address] Care Team Providers Care Visual Merchandising Associate Name Role Phone Yuan Mccracken MD Primary Care Provider Encounter Details Date Type Department Care Team (Late st Contact Info) Description 01/27/2021 Transcribed Document [facility] [place] Family Medicine [address] [place] [address] ProviderPerry MD [address] [place], [place] [id number] Social History Tobacco Use Types Packs/Day Years Used Date Smoking Tobacco: Never Assessed Comments Unknown Sex and Gender Information Value Date Recorded Sex Assigned at Not on file Legal Sex Female 12:32 PM CDT Gender Identity Not on file Sexual Orientation Not on file documented as of this encounter Miscellaneous Notes * Libraner Conversion Note - Perry Nunes MD - 01/27/2021 2:00 AM CDT Checker/Stocker Details Entered On: 01/27/2021 7:25 EDT Performed On: 01/27/2021 2:00 EDT by Griffin Jennings Non Emp RN Order Details Transport Mode Order Detail : Bed (including specialty) Isolation Precautions Order Detail : Containment Precautions Order Detail : 0 IV Order Detail : 1 Oxygen Order Detail : 1 Nurse Collect Order Detail : 0 Lift/Transfer : Maximal assist Central Line Order Detail : No Room Service : Needs Assistance Arterial Line : No Patient Needs Meds Crushed/Liquid : No Griffin Jennings Non Emp RN - 01/27/2021 7:25 EDT Electronically signed by [facility] Conversion Telegraph Lineman Cerner at 12/07/2022 6:22 PM CDT documented in this encounter Plan of Treatment Not on file documented as of this encounter Visit Diagnoses Not on filedocumented in this encounter Care Teams Visual Merchandising Associate Relationship Specialty Start Date End Date Yuan Mccracken MD [address] [place] [phone] PCP - General Family Medicine 09/23/22 documented as of this encounter
--- OUTSIDE RECORDS SUMMARY | 2025-02-15 10:07 | XMS_ITS | Encounter Summary ---
Author Organization [facility] i[facility] Address [address] [place] [address] Care Team Providers Care Vp Cardiovascular Service Line Name Role Phone Yuan Mccracken MD Primary Care Provider [phone] Encounter Details Date Type Department Care Team (Late st Contact Info) Description 01/16/2021 Transcribed Document [facility] [place] [address] [place] [address] ProviderPerry MD [address] [place] [address] Social History Tobacco Use Types Packs/Day Years Used Date Smoking Tobacco: Never Assessed Comments Unknown Sex and Gender Information Value Date Recorded Sex Assigned at Not on file Legal Sex Female 12:32 PM CDT Gender Identity Not on file Sexual Orientation Not on file documented as of this encounter Miscellaneous Notes * Cerner Conversion Note - Perry Nunes MD - 01/16/2021 7:44 PM CDT Patient: CHANI VELASQUEZ Age: 60 Years Sex: Female : 1960 Chief Complaint Via EMS for SOA x 2-3 weeks, increased 2-3 days. Pt denies medical treatment for years. Rec'd solumedrol 125mg IM and xopenex neb en route. Reports mild chest discomfort on arrival. Primary Care Provider History of Present Illness This is a 60 years old female patient with not know PMH, did not seen PCP for years, not taking prescribed medications. presented to ER with complains of shortness of breath for the last 3 days.She is poor historian, she gets shortness of breath eventually she got to the bathroom she also was in lower extremity swelling, she denies cough in ER, alert and oriented, she is tachypneic with RR 44, O2 saturation 95% on RA, he labs ABG PH 7.18, PcO31, CO3 4.9, Na 126, K 6.8, Creatinine 6.5, BUN 139, Bicarb 8, Lactic acid 2.1, WBC 22, Albumin 6.5. Review of Systems Constitutional: [No fevers, chills, sweats] Eye: [No recent visual problems, eye discharge, eye pain, redness] HEENT: [No ear pain, nasal congestion, sore throat, voice changes] Respiratory: [ shortness of breath, no cough, pain on breathing, sputum production] Cardiovascular: [No Chest pain, palpitations, syncope, shortness of breath while laying flat] Gastrointestinal: [No nausea, vomiting, diarrhea, constipation] Genitourinary: [No hematuria, dysuria, incontinence, lesions on genitalia] Ezequiel/Lymph: [Negative for bruising tendency, swollen lymph glands, nosebleeds, history of anticoagulation] Endocrine: [Negative for excessive thirst, excessive hunger, excessive urination, heat or cold intolerance] Musculoskeletal: [No back pain, neck pain, joint pain, muscle pain, decreased range of motion] Integumentary: [lower ext skin rash, pruritus, abrasions, lesions] Neurologic: [No weakness, numbness, frequent headaches, tremors, blackouts] Psychiatric: [No anxiety, depression, mood changes, hallucinations] Vital Signs T: 37.1 ??C HR: 122(Peripheral) RR: 44 BP: 136/65 SpO2: 99% HT: 162.56 cm WT: 122.73 kg BMI: 46.4 Oxygen Settings (Last) Oxygen Therapy Mode: Room air (01/16/21 18:24:00) Physical Exam General: [Alert and oriented, well nourished, in mild distress, obese unkempt]. Neurologic: [Awake, alert, and oriented X3, CN II-XII intact]. Eye: [EOMI, normal conjuctiva]. HENT: [Normocephalic, clear tympanic membranes, normal hearing, moist oral mucosa, no scleral icterus, no sinus tenderness]. Neck: [Supple, non-tender, no carotid bruits, no JVD, no lymphadenopathy]. Lungs: [Clear to auscultation and percussion, non-labored respiration]. Heart: [Normal rate, regular rhythm, no murmur, gallop or edema]. Abdomen: [Soft, non-tender, non-distended, normal bowel sounds, no masses]. Musculoskeletal: [Normal range of motion and strength, no tenderness or swelling]. Skin: [Skin is warm, dry and pink, lower ext rash, scales]. Psychiatric: [Cooperative, appropriate mood and affect]. Assessment/Plan #Life threatening hyperkalemia IV insulin, IV dextrose, IV calcium gluconate Nephrology consult recheck in am #Sever metabolic acidosis Received IV Sodium bicarbonate n ER Bicarbonate drip monitor #Acute renal failure order urine electrolytes, renal US IVF monitor #Lower ext cellulitis IV Rocephin #Dyspnea chest X ray and Echo breathing treatment as needed #obesity Complicate clinical aspect of care DVT Prophylaxis Heparin Full code Time spent 55 minutes Discussed with patient, ER staff Labs, past medical history reviewed VTE Prophylaxis - Medical No VTE Prophylaxis Orders. Problem List/Past Medical History Ongoing No qualifying data Historical No qualifying data Procedure/Surgical History Hysterectomy No qualifying data available Allergies No Known Allergies Social History Home/Environment Living situation: Home/Independent. Tobacco Family History HTN Diagnostic Results No Radiology Results Found Lab Results Test Name Test Result Date/Time pH Art 7.18 (Critical) 01/16/2021 18:00 EDT pCO2 Art 13.2 mmHg (Critical) 01/16/2021 18:00 EDT pO2 Art 109.0 mmHg (High) 01/16/2021 18:00 EDT HCO3 Art 4.9 mmol/L (Low) 01/16/2021 18:00 EDT BE Art -21.2 mmol/L (Low) 01/16/2021 18:00 EDT sO2 Art 96.5 % 01/16/2021 18:00 EDT tHb Art 12.6 Gram/dL 01/16/2021 18:00 EDT FHHb 3.5 % 01/16/2021 18:00 EDT ctO2 17.1 mmol/L 01/16/2021 18:00 EDT Delivery Device Type Art Cannula 01/16/2021 18:00 EDT Temperature, F Art 98.6 Deg F 01/16/2021 18:00 EDT Art Blood Gas (ABG) Site Right Radial 01/16/2021 18:00 EDT Acceptable Conrado's Test Art Acceptable 01/16/2021 18:00 EDT Ventilator Mode Art N/A 01/16/2021 18:00 EDT ABG Num of Draw Attempts 2 01/16/2021 18:00 EDT Sodium Level 126 mmol/L (Low) 01/16/2021 17:43 EDT Potassium Level 6.8 mmol/L (Critical) 01/16/2021 17:43 EDT Chloride Level 101 mmol/L (Low) 01/16/2021 17:43 EDT Carbon Dioxide Level 8 mmol/L (Low) 01/16/2021 17:43 EDT Anion Gap 24 (High) 01/16/2021 17:43 EDT Glucose Level 181 mg/dL (High) 01/16/2021 17:43 EDT Blood Urea Nitrogen 139 mg/dL (Critical) 01/16/2021 17:43 EDT Creatinine Level 6.50 mg/dL (High) 01/16/2021 17:43 EDT eGFR 8 mL/min/1.73m2 (Low) 01/16/2021 17:43 EDT eGFR NonAfrican 6 mL/min/1.73m2 (Low) 01/16/2021 17:43 EDT Bun/Creatinine 21.4 (High) 01/16/2021 17:43 EDT Calcium Level 8.8 mg/dL 01/16/2021 17:43 EDT Protein Total 9.3 Gram/dL (High) 01/16/2021 17:43 EDT Albumin Level 2.1 Gram/dL (Low) 01/16/2021 17:43 EDT Globulin 7.2 Gram/dL (High) 01/16/2021 17:43 EDT A/G Ratio 0.3 (Low) 01/16/2021 17:43 EDT Bilirubin Total 0.5 mg/dL 01/16/2021 17:43 EDT Alk Phos 128 Units/Liter 01/16/2021 17:43 EDT AST 28 Units/Liter 01/16/2021 17:43 EDT ALT 23 Units/Liter 01/16/2021 17:43 EDT Lactic Acid Level 2.1 mmol/L (Critical) 01/16/2021 17:43 EDT Troponin I Ultra <0.015 ng/mL 01/16/2021 17:43 EDT ProBNP 1385 pg/mL (High) 01/16/2021 17:43 EDT WBC 21.7 K/uL (High) 01/16/2021 17:43 EDT RBC 4.28 Million/uL 01/16/2021 17:43 EDT Hgb 11.3 g/dL 01/16/2021 17:43 EDT Hct 35.6 % 01/16/2021 17:43 EDT MCV 83.2 fL 01/16/2021 17:43 EDT MCH 26.4 pg 01/16/2021 17:43 EDT MCHC 31.7 Gram/dL (Low) 01/16/2021 17:43 EDT Platelet Count 389 K/uL (High) 01/16/2021 17:43 EDT MPV 9.8 fL 01/16/2021 17:43 EDT RDW 16.9 % (High) 01/16/2021 17:43 EDT Additional Documentation Code Status No Code Status Order on Record Electronically signed by Carlotta [facility] Conversion Heat Treater Helper Cerner at 12/07/2022 6:13 PM CDT documented in this encounter Plan of Treatment Not on file documented as of this encounter Visit Diagnoses Not on filedocumented in this encounter Care Teams Vp Cardiovascular Service Line Relationship Specialty Start Date End Date Yuan Mccracken MD [address] [place] [phone] PCP - General Family Medicine 09/23/22 documented as of this encounter
--- OUTSIDE RECORDS SUMMARY | 2025-02-15 10:07 | XMS_ITS | Encounter Summary ---
Author Organization [facility] Init iatives Address [address] [place] [address] Care Team Providers Care Anatomy Professor Name Role Phone Yuan Mccracken MD Primary Care Provider [phone] Encounter Details Date Type Department Care Team (Late st Contact Info) Description 01/26/2021 Transcribed Document [facility] [place] Family Medicine [address] [place] [address] ProviderPerry MD [address], [place] [id number] Social History Tobacco Use Types Packs/Day Years Used Date Smoking Tobacco: Never Assessed Comments Unknown Sex and Gender Information Value Date Recorded Sex Assigned at Not on file Legal Sex Female 12:32 PM CDT Gender Identity Not on file Sexual Orientation Not on file documented as of this encounter Miscellaneous Notes * Cerner Conversion Note - Perry Nunes MD - 01/26/2021 10:47 AM CDT Patient: CHANI VELASQUEZ Age: 60 Years Sex: Female : 1960 Subjective Stable renal function. UOP not recorded accurately. Significant volume overload though responding well to diuretics. Vital Signs T: 36.8 ??C TMIN: 36.8 ??C TMAX: 37.3 ??C HR: 68 RR: 18 BP: 140/84 SpO2: 97% Oxygen Settings (Last) Oxygen Therapy Mode: Nasal cannula (01/26/21 07:57:00) Oxygen Flow Rate: 2 Liter/Min (01/26/21 07:57:00) Intake & Output Totals Last 24 Hours (7a-7a) Input Total: 899.97 mL Output Total: 0 mL Balance: 899.97 mL Physical Exam General: No acute distress, [...] Patient improving with fluids and supportive care. Left ureteral obstruction: Mild hydronephrosis seen with UPJ stone 5 mm and 3mm stone. Urology following. Conservative management at this stage Will need stone prevention workup as outpatient. HTN: Blood pressure stable but elevated. Monitor for now. Metabolic acidosis: resolved. Hypokalemia: Getting K supplementation Hyperphosphatemia: Due to renal failure. Monitor for improvement with renal recovery. Volume: Worsening volume overload. Cellulitis: On antibiotics. Afib w RVR Anemia: Hb stable. Recs Increase lasix 40 mg BID. Need to limit Na intake that is predominantly the reason for worsening of recent worsening of volume status. Limit fluid intake to 1.2 liter Monitor renal function. Supplement K and Mag Daily labs. VTE Prophylaxis - Medical Apixaban 5 mg, Oral, Tab, [id number], Routine, Start 01/21/21 10:00:00 EDT, 01/21/21 9:43:00 [...] 3 mL, Nebulized Inhalation , RT_Q6H, PRN Eliquis, 5 mg= 1 Tab, Oral, [id number] Lac-Hydrin 12% topical lotion, 1 Application, Topical, BID lactobacillus acidophilus, 1 Cap, Oral, BID Lasix, 20 mg= 1 Tab, Oral, BID magnesium sulfate, 2 Gram= 50 mL, IV Piggyback, Daily, PRN magnesium sulfate, 2 Gram= 50 mL, IV Piggyback, Q2H, PRN metoprolol tartrate, 50 mg= 1 Tab, Oral, BID MiraLax, 17 Gram= 1 Packet, Oral, Daily, PRN Mucinex, 600 mg= 1 Tab, Oral, BID, PRN nystatin, [id number] Units= 5 mL, Swish and Swallow , [...] EDT Phosphorus 3.8 mg/dL 01/26/2021 04:35 EDT Calcium Ionized 1.11 mmol/L (Low) 01/26/2021 [...] Lymph # 1.47 x10(3)/uL 01/26/2021 04:35 EDT [place] % 6.7 % 01/26/2021 04:35 EDT [place] # 0.78 K/uL 01/26/2021 04:35 EDT Eos % 1.5 % 01/26/2021 04:35 EDT Eos # 0.17 x10(3)/uL 01/26/2021 04:35 EDT Baso % 0.3 % 01/26/2021 04:35 EDT Baso # 0.03 x10(3)/uL 01/26/2021 04:35 EDT Slide Review No 01/26/2021 04:35 EDT IG# 0.14 x10(3)/uL (High) 01/26/2021 04:35 EDT IG% 1.20 % (High) 01/26/2021 04:35 EDT documented in this encounter Plan of Treatment Not on file documented as of this encounter Visit Diagnoses Not on filedocumented in this encounter Care Teams Anatomy Professor Relationship Specialty Start Date End Date Yuan Mccracken MD [address] [place] [phone] PCP - General Family Medicine 09/23/22 documented as of this encounter
--- OUTSIDE RECORDS SUMMARY | 2025-02-15 10:07 | XMS_ITS | Encounter Summary ---
Author Organization [facility] In iatives Address [address] [place] [address] Care Team Providers Care Hospital Cleaner Name Role Phone Yuan Mccracken MD Primary Care Provider [phone] Encounter Details Date Type Department Care Team (Late st Contact Info) Description 01/20/[address] [facility] [place] [facility] [place] [address] ProviderPerry MD [address] [place], [place] [address] Social History Tobacco Use Types Packs/Day Years Used Date Smoking Tobacco: Never Assessed Comments Unknown Sex and Gender Information Value Date Recorded Sex Assigned at Not on file Legal Sex Female 12:32 PM CDT Gender Identity Not on file Sexual Orientation Not on file documented as of this encounter Miscellaneous Notes * Cerner Conversion Note - Perry Nunes MD - 01/20/2021 9:21 AM CDT Consult Phone Call Documentation Entered On: 01/20/2021 10:32 EDT Performed On: 01/20/2021 9:21 EDT by Kassie Crawford Patient Electric Motor Repairman Godwin Phone Call for Consults Consult Phone Call/Page Attempt : First call Consult Reason : for new onset afib RVR overnight Physician Requesting Consult : PRINCESS RIVERA MD Provider Service Notified Name : Cardiology Kassie Crawford Patient Electric Motor Repairman I - 01/20/2021 10:32 EDT documented in this encounter Plan of Treatment Not on file documented as of this encounter Visit Diagnoses Not on filedocumented in this encounter Care Teams Hospital Cleaner Relationship Specialty Start Date End Date Yuan Mccracken MD [address] [place] [phone] PCP - General Family Medicine 09/23/22 documented as of this encounter
--- OUTSIDE RECORDS SUMMARY | 2025-02-15 10:07 | XMS_ITS | Encounter Summary ---
Author Organization [facility] Init [facility]atives Address [address] [place] [address] Care Team Providers Care Hospital Mortician Name Role Phone Yuan Mccracken MD Primary Care Provider [phone] Encounter Details Date Type Department Care Team (Late st Contact Info) Description 01/27/2021 Transcribed Document [facility] [place] [address] [place] [address] ProviderPerry MD [address] [place], [place] [address] Social History Tobacco Use Types Packs/Day Years Used Date Smoking Tobacco: Never Assessed Comments Unknown Sex and Gender Information Value Date Recorded Sex Assigned at Not on file Legal Sex Female 12:32 PM CDT Gender Identity Not on file Sexual Orientation Not on file documented as of this encounter Miscellaneous Notes * Cerner Conversion Note - Perry Nunes MD - 01/27/2021 2:20 PM CDT On Going Discharge Planning Entered On: 01/27/2021 14:23 EDT Performed On: 01/27/2021 14:20 EDT by Maryjane Gonzalez V, Deburring And Tooling Machine Operator C T Tech Care Management Progress Note Discharge Arrangements : Patient Post-Acute Information Patient Name: CHANI VELASQUEZ Gender: Female : [birth year] Age: 60 Years No Post-Acute Placement(s) Listed No Post-Acute Service(s) Listed No [place] Referral(s) Listed Discharge Options Discussed with Patient : Acute rehabilitation, Home Health, penitentiary Barriers to Discharge Identified : Clinical Condition of Patient Barriers to Discharge Unresolved : Clinical Condition of Patient Is the Patient Meeting Medical Necessity : Yes Physician Agreeable to Move Forward with D/C Plan? : Yes Did you Attend Multidisciplinary Rounds? : Yes Maryjane Gonzalez Social Worker C T Tech - 01/27/2021 14:20 EDT Narrative Progress Note Narrative Progress Note : HD#10, elos-4, RRS-Moderate, Boost-3 ID following. IV Vanc and Zosyn and po doxy. Per nephrology, renal function stable. Wound care and mist therapy with PT. CM sent updated clinical/therapy updates to all [place] facilities. Lack of insurance is a huge placement barrier. CM called [facility]. Left message for admit coordinator. Patient's is a resident at [facility]. CM hopes that they will accept patient as well with pending Medicaid. CM to follow Historical Progress Note : HD#6, elos-4, RRS-Moderate, Boost-3 ID following. IV Vanc and Zosyn and po doxy. Per nephrology, renal function stable. PT/OT working with pt and providing wound care. Rehab placement initated last week. CM sent updated clinical and therapy updates. Pt still pending Medicaid. Lack of insurance is a placement barrier. CM will continue to follow pt's progress and insurance status. Maryjane Gonzalez Social Worker C T Tech - 01/26/21 13:44:57 HD#6, ELOS-not recorded, RRS-Moderate, Boost-3 ID following and recommending culture right leg wound and possible vascular consult. On IV Vanc and Zosyn. 3L 02/NC.,wound care. PT/OT recommending rehab. Referrals sent via [employer] to [facility] and SNF. Patient pending Medicaid. Placement susanna be difficult due to no insurance. is a resident at [facility]. Referral sent there too. CM to follow -- Maryjane Gonzalez Social Worker C T Tech - 01/23/21 12:17:40 HD#5, ELOS-not recorded, RRS-Moderate, Boost-3 Patient on 2L 02/NC. IV Abx-Vanc and Zosyn. Wound care by PT. PT/OT recommending rehab. CM sent referrals via [employer]. Patient's is a resident at [facility]. Patient is self pay and has no health or presription coverage. Placement may be difficult due to pending Medicaid status. CM to follow patient's progess and SNF placement options. Maryjane Gonzalez V, Deburring And Tooling Machine Operator C T Tech - 01/22/21 13:50:41 Maryjane Gonzalez V Deburring And Tooling Machine Operator C T Tech - 01/27/2021 14:20 EDT documented in this encounter Plan of Treatment Not on file documented as of this encounter Visit Diagnoses Not on filedocumented in this encounter Care Teams Hospital Mortician Relationship Specialty Start Date End Date Yuan Mccracken MD [address] [place] [phone] PCP - General Family Medicine 09/23/22 documented as of this encounter
--- OUTSIDE RECORDS SUMMARY | 2025-02-15 10:07 | XMS_ITS | Encounter Summary ---
Author Organization [facility] [employer] Address [address] [place] [address] Care Team Providers Care Financial Operations Clerk Name Role Phone Yuan Mccracken MD Primary Care Provider [phone] Encounter Details Date Type Department Care Team (Late st Contact Info) Description 01/16/2021 Transcribed Document [facility] [place] [address] [place] [address] ProviderPerry MD [address], [place] [id number] Social History Tobacco Use Types Packs/Day Years Used Date Smoking Tobacco: Never Assessed Comments Unknown Sex and Gender Information Value Date Recorded Sex Assigned at Not on file Legal Sex Female 12:32 PM CDT Gender Identity Not on file Sexual Orientation Not on file documented as of this encounter Miscellaneous Notes * Cerner Conversion Note - Perry Nunes MD - 01/16/2021 7:55 PM CDT Evaluation, Physical Therapy Entered On: 01/19/2021 12:30 EDT Performed On: 01/19/2021 11:25 EDT by FRANCISCO MACEDO PT General Information, PT Therapy Diagnosis, PT : impaired mobility due to generalized weakness, poor endurance, BLE edema and pain Onset of Problem, PT : 01/16/2021 EDT Co-treated by, PT : Occupational Therapist FRANCISCO MACEDO, PT - 01/19/2021 12:54 EDT General Information Comment, PT : Pt admitted with severe hyperkalemia, metabolic acidosis, acute renal failure, L hydronephrosis, BLE cellulitis, PNA *pt also noted to have bed bugs during this admission* PMH: no significant PMH listed other than obesity FRANCISCO MACEDO PT - 01/19/2021 12:58 EDT Visit Type, PT : Initial evaluation Patient Orders : Order Date Order Ordering MD 01/16/2021 19:55 PT Evaluation and Treatment Ordered By: PRINCESS RIVERA MD Active Diagnoses : 01/16/2021 12:00 Acidosis 01/16/2021 12:00 Cellulitis of unspecified part of limb 01/16/2021 12:00 General medical 01/16/2021 12:00 Hyperkalemia 01/16/2021 12:00 Hyperventilation 01/16/2021 12:00 Other disorders of electrolyte and fluid balance, not elsewhere classified 01/16/2021 12:00 Other specified abnormal findings of blood chemistry 01/16/2021 12:00 Shortness of breath Admission Date : 01/16/2021 19:34 Personal Devices : Personal Devices Dentures, upper Assistive Devices : Assistive Devices No Devices Recorded FRANCISCO MACEDO PT - 01/19/2021 12:30 EDT Isolation Maintained : Contact FRANCISCO MACEDO PT - 01/19/2021 12:58 EDT General Status Patient Received Status : Supine in bed Treatment Start Time : 01/19/2021 10:50 EDT Patient Left Status : Up in chair, RN/PCT informed, All needs met and within reach RN/PCT Informed Comment : Nsg advised session ok to attempt and was notfieid pt in chair afterward Treatment End Time : 01/19/2021 11:25 EDT Treatment Time : 35 Minute(s) FRANCISCO MACEDO PT - 01/19/2021 12:58 EDT History and Environment Living Situation, Therapy : Home Patient Lives With : Other: alone currently due to pt recently discharged from [facility] to a SNF Persons Assisting Patient at Home : Sibling(s), Other: reports my sister lives down the road Professional Skilled Services : None Persons Providing Information : Patient Home Equipment Therapy, PT : Cane, Walker Cane : Cane, single point Walker : Walker, front wheel Home Setup : One story Stairs : No Ramp : Yes FRANCISCO MACEDO PT - 01/19/2021 12:58 EDT Prior Level of Function PT GRID Prior LOF Ambulation, Household : Independent Prior LOF Ambulation, Community : Independent Prior LOF Bed Mobility : Independent Prior LOF Toileting : Independent Prior LOF Transfer : Independent FRANCISCO MACEDO PT - 01/19/2021 12:58 EDT Prior LOF Assist with ADL Comment : indep. ADLs typically but reports her sister helps her on occasion and says when I just don't feel like getting up , does not use AD, DME is her 's FRANCISCO MACEDO, PT - 01/19/2021 12:58 EDT Intervention Summary Heart Rate/Pulse Pre-intervention : 89 bpm BP Systolic Pre-intervention : 144 mmHg BP Diastolic Pre-intervention : 68 mmHg O2 Pre-Intervention : 3.5 L SpO2 Pre-Intervention : 98 % O2 During Intervention : 3.5 SpO2 During Intervention : 99 % Heart Rate/Pulse Post-intervention : 98 bpm BP Systolic Post-intervention : 123 mmHg BP Diastolic Post-intervention : 76 mmHg O2 Post-Intervention : 3.5 L SpO2 Post-Intervention : 97 % FRANCISCO MACEDO, PT - 01/19/2021 12:58 EDT Upper Extremity Right UE Active ROM : WFL Right UE Strength : WFL Left UE Active ROM : WFL Left UE Strength : WFL FRANCISCO MACDEO PT - 01/19/2021 12:58 EDT Lower Extremity RLE Active ROM : WFL Right LE Strength : Impaired LLE Active ROM : WFL Left LE Strength : Impaired FRANCISCO MACEDO PT - 01/19/2021 12:58 EDT Right Lower Extremity MMT Hip Flexion (0-125) : 3-/fair Knee Flexion (0-140) : 3-/fair Knee Extension (0-0) : 3-/fair Ankle Dorsiflexion (0-20) : 3-/fair Ankle Plantarflexion (0-45) : 3-/fair FRANCISCO MACEDO PT - 01/19/2021 12:58 EDT Left Lower Extremity MMT Hip Flexion (0-125) : 3-/fair Knee Flexion (0-140) : 3-/fair Knee Extension (0-0) : 3-/fair Ankle Dorsiflexion (0-20) : 3-/fair Ankle Plantarflexion (0-45) : 3-/fair FRANCISCO MACEDO, PT - 01/19/2021 12:58 EDT Functional Mobility Mobility Grid Supine to Sit : Rehab Moderate assistance Sit to Stand : Rehab Minimal assistance (Comment: x2 gait belt only [FRANCISCO MACEDO, PT - 01/19/2021 12:58 EDT] ) Bed to Chair : Rehab Minimal assistance (Comment: x2 gait belt only, but holding onto arm rest of chair, SPT with increased time [FRANCISCO MACEDO, PT - 01/19/2021 12:58 EDT] ) Stand to Sit : Rehab Minimal assistance (Comment: x2 gait belt only [FRANCISCO MACEDO, PT - 01/19/2021 12:58 EDT] ) FRANCISCO MACEDO, PT - 01/19/2021 12:58 EDT Gait Training/Assessment, PT Gait Assistance Level : Unable to assess/activity not appropriate Walking Distance : pt with poor endurance, c/o dizziness and nausea sitting EOB FRANCISCO MACEDO, PT - 01/19/2021 12:58 EDT Activity Tolerance, PT Activity Tolerance, PT Activity #1 Activity : Sitting unsupported Minutes : 10 Minute(s) Comment (Comment: sat EOB ~10 min with supervision, c/o dizziness and nausea [FRANCISCO MACEDO, PT - 01/19/2021 12:58 EDT] ) FRANCISCO MACEDO, PT - 01/19/2021 12:58 EDT Edu Topics Physical Therapy Education Grid Balance Training : Returns demonstration, Needs further teaching Bed Mobility Training : Returns demonstration, Needs further teaching Role of Physical Therapy : Verbalizes understanding Safety : Verbalizes understanding, Returns demonstration, Needs further teaching, Needs reinforcement Transfer Training : Returns demonstration, Needs further teaching FRANCISCO MACEDO PT - 01/19/2021 12:58 EDT Indication Assesessment, PT Physical Therapy Indicated : Yes PT Problem List : Impaired, activities daily living, Impaired, bed mobility, Impaired, endurance tolerance, Impaired, gait, Impaired, sitting balance, Impaired, stair mobility, Impaired, strength, Impaired, transfers, Pain limiting function Potential Barriers To Therapy : Acuity of Illness, Fatigue, Pain Rehabilitation Potential : Fair FRANCISCO MACEDO, PT - 01/19/2021 12:58 EDT Plan of Care, PT PT Tx Plan/Goals Established w Patient : Yes PT Frequency Rehab : Five days per week PT Duration Rehab : Fourteen days PT Treatments Planned : Balance training, Bed mobility training, Caregiver training, Gait training, Safety education, Therapeutic exercises, Transfer training FRANCISCO MACEDO, PT - 01/19/2021 12:58 EDT Short Term Goals Mobility/Bed Mobility STG PT Grid Goal #1 Activity : Supine to sit Assist : Assist, minimal Date to Meet : 01/26/2021 EDT Goal Status : Initial goal FRANCISCO MACEDO Amber, PT - 01/19/2021 12:58 EDT Ambulation STG Grid Goal #1 Device : Walker, front wheel Distance : 50 ft Assist : Assist, minimal Date to Meet : 01/26/2021 EDT Goal Status : Intial Goal FRANCISCO MACEDO Amber, PT - 01/19/2021 12:58 EDT Store Detective Goals Mobility/Bed Mobility LTG PT Grid Goal #1 Goal #2 Activity : Supine to sit Sit to stand Assist : Independent, modified Independent, modified Date to Meet : 02/02/2021 EDT 02/02/2021 EDT Goal Status : Intial Goal Intial Goal HELLEN FRANCISCO R, PT - 01/19/2021 12:58 EDT HELLEN, FRANCISCO Amber, PT - 01/19/2021 12:58 EDT Ambulation LTG Grid Goal #1 Device : Walker, front wheel Distance : 150 ft Assist : Independent, modified Date to Meet : 02/02/2021 EDT Goal Status : Intial Goal HELLEN FRANCISCO Amber, PT - 01/19/2021 12:58 EDT Treatment Note Subjective Comment : Pt agreeable to session. Asked her if she wanted to try to get to a chair and she said I don't know if I'll be able to, but I'll try. Additional Objective Information : BLE's are weeping significantly and some bleeding noted through kerlix. Legs re-wrapped in clean chux end of treatment and nsg notified of findings, she was aware. Assessment : Pt sat EOB ~10 min with supervision, but reported she felt dizzy and nauseated. Reported she felt a little better after sitting for a while and was able to stand and pivot to chair with min A x 2. Pt very weak but participated well & can benefit from continued PTx during LOS. Plan for Treatment : progress as tolerated. FRANCISCO MACEDO, PT - 01/19/2021 12:58 EDT Pain Assessment Pain Scaled Used : 0-10 Pain scale Pain Score Pre-Intervention : 0 Location : Legs, bilateral Pain Comment : pt stated no pain at rest, but c/o pain to touch BLE, worse on L FRANCISCO MACEDO PT - 01/19/2021 12:58 EDT Image 1 - Images currently included in the form version of this document have not been included in the text rendition version of the form. Anticipated Discharge Needs, OT/PT Anticipated Discharge to : Unit, rehabilitation Recommend Continued Therapy at Discharge : Yes FRANCISCO MACEDO PT - 01/19/2021 12:[address] [facility] PT Eval Moderate Complexity : 1 FRANCISCO MACEDO PT - 01/19/2021 12:58 EDT documented in this encounter Plan of Treatment Not on file documented as of this encounter Visit Diagnoses Not on filedocumented in this encounter Care Teams Financial Operations Clerk Relationship Specialty Start Date End Date Yuan Mccracken MD [address] [place] [phone] PCP - General Family Medicine 09/23/22 documented as of this encounter
--- OUTSIDE RECORDS SUMMARY | 2025-02-15 10:07 | XMS_ITS | Encounter Summary ---
Author Organization [facility] Init [employer] Address [address] [place] [address] Care Team Providers Care Tower Air Traffic Control Specialist Name Role Phone Yuan Mccracken MD Primary Care Provider [phone] Encounter Details Date Type Department Care Team (Late st Contact Info) Description 01/26/2021 Transcribed Document [facility] [place] [address] [place] [address] ProviderPerry MD [address] [place] [address] Social History Tobacco Use Types Packs/Day Years Used Date Smoking Tobacco: Never Assessed Comments Unknown Sex and Gender Information Value Date Recorded Sex Assigned at Not on file Legal Sex Female 12:32 PM CDT Gender Identity Not on file Sexual Orientation Not on file documented as of this encounter Miscellaneous Notes * Cerner Conversion Note - Perry Nunes MD - 01/26/2021 1:42 PM CDT On Going Discharge Planning Entered On: 01/26/2021 13:44 EDT Performed On: 01/26/2021 13:42 EDT by Maryjane Gonzalez V, Entry Level Business Analyst Division Field Inspector Care Management Progress Note Discharge Arrangements : Patient Post-Acute Information Patient Name: CHANI VELASQUEZ Gender: Female : 56 Age: 60 Years No Post-Acute Placement(s) Listed No Post-Acute Service(s) Listed No [place] Referral(s) Listed Discharge Options Discussed with Patient : Acute rehabilitation, Home Health, half-way Barriers to Discharge Identified : Clinical Condition of Patient Barriers to Discharge Unresolved : Clinical Condition of Patient Is the Patient Meeting Medical Necessity : Yes Physician Agreeable to Move Forward with D/C Plan? : Yes Did you Attend Multidisciplinary Rounds? : Yes Maryjane Gonzalez Social Worker Division Field Inspector - 01/26/2021 13:42 EDT Narrative Progress Note Narrative Progress Note : HD#6, elos-4, RRS-Moderate, Boost-3 ID following. IV Vanc and Zosyn and po doxy. Per nephrology, renal function stable. PT/OT working with pt and providing wound care. Rehab placement initated last week. CM sent updated clinical and therapy updates. Pt still pending Medicaid. Lack of insurance is a placement barrier. CM will continue to follow pt's progress and insurance status. Historical Progress Note : HD#6, ELOS-not recorded, RRS-Moderate, Boost-3 ID following and recommending culture right leg wound and possible vascular consult. On IV Vanc and Zosyn. 3L 02/NC.,wound care. PT/OT recommending rehab. Referrals sent via [facility] to [facility] and SNF. Patient pending Medicaid. Placement susanna be difficult due to no insurance. is a resident at [facility]. Referral sent there too. CM to follow -- Maryjane Gonzalez Social Worker Division Field Inspector - 01/23/21 12:17:40 HD#5, ELOS-not recorded, RRS-Moderate, Boost-3 Patient on 2L 02/NC. IV Abx-Vanc and Zosyn. Wound care by PT. PT/OT recommending rehab. CM sent referrals via [employer]. Patient's is a resident at [facility]. Patient is self pay and has no health or presription coverage. Placement may be difficult due to pending Medicaid status. CM to follow patient's [facility] and SNF placement options. Maryjane Gonzalez Social Worker Division Field Inspector - 01/22/21 13:50:41 Maryjane Gonzalez Social Worker Division Field Inspector - 01/26/2021 13:42 EDT documented in this encounter Plan of Treatment Not on file documented as of this encounter Visit Diagnoses Not on filedocumented in this encounter Care Teams Tower Air Traffic Control Specialist Relationship Specialty Start Date End Date Yuan Mccracken MD [facility] [place] [phone] PCP - General Family Medicine 09/23/22 documented as of this encounter
--- OUTSIDE RECORDS SUMMARY | 2025-02-15 10:07 | XMS_ITS | Encounter Summary ---
Author Organization [facility] Init [employer] Address [address] [place] [address] Care Team Providers Care Farm Mechanic Apprentice Name Role Phone Yuan Mccracken MD Primary Care Provider [phone] Encounter Details Date Type Department Care Team (Late st Contact Info) Description 01/16/2021 Transcribed Document [facility] [place] Family Medicine [address] [place] [address] ProviderPerry MD [address], [place] [address] Social History Tobacco Use Types Packs/Day Years Used Date Smoking Tobacco: Never Assessed Comments Unknown Sex and Gender Information Value Date Recorded Sex Assigned at Not on file Legal Sex Female 12:32 PM CDT Gender Identity Not on file Sexual Orientation Not on file documented as of this encounter Miscellaneous Notes * Cerner Conversion Note - Perry Nunes MD - 01/16/2021 8:01 PM CDT ED Event Note Entered On: 01/16/2021 20:02 EDT Performed On: 01/16/2021 20:01 EDT by JENNY CHAN RN ED Event Note ED Event Date/Time : 01/16/2021 20:01 EDT ED Event Location : Assigned room ED Event Details : Nursing assessment additional narrative ED Description of Event : report given to STEPHEN gama in SICU. no questions. JENNY CHAN RN - 01/16/2021 20:01 EDT documented in this encounter Plan of Treatment Not on file documented as of this encounter Visit Diagnoses Not on filedocumented in this encounter Care Teams Farm Mechanic Apprentice Relationship Specialty Start Date End Date Yuan Mccracken MD [address] [place] [phone] PCP - General Family Medicine 09/23/22 documented as of this encounter
--- OUTSIDE RECORDS SUMMARY | 2025-02-15 10:07 | XMS_ITS | Encounter Summary ---
Author Organization [facility] [employer] Address [address] [place] [address] Care Team Providers Care Boatwright Name Role Phone Yuan Mccracken MD Primary Care Provider [phone] Encounter Details Date Type Department Care Team (Late st Contact Info) Description 01/20/2021 Transcribed Document [facility] [place] [address] [place] [address] ProviderPerry MD [address], [place] [address] Social History Tobacco Use Types Packs/Day Years Used Date Smoking Tobacco: Never Assessed Comments Unknown Sex and Gender Information Value Date Recorded Sex Assigned at Not on file Legal Sex Female 12:32 PM CDT Gender Identity Not on file Sexual Orientation Not on file documented as of this encounter Miscellaneous Notes * Cerner Conversion Note - Perry Nunes MD - 01/20/2021 1:51 PM CDT UM Authorization Entered On: 01/20/2021 13:51 EDT Performed On: 01/20/2021 13:51 EDT by CARMEN MARLOW RN Primary Insurance Authorization Authorization and Policy Numbers : Insurance 1 Health Plan: SELF PAY Policy Number: Authorization Number: Insurance Primary Name : Self-pay Authorization Comments-Primary : Self pay at the time of review Historical Authorization Comments-Primary : No Authorization Comments Found CARMEN MARLOW RN - 01/20/2021 13:51 EDT Electronically signed by Carlotta [facility] Conversion Diesel Retrofit Designer Cerner at 12/07/2022 6:04 PM CDT documented in this encounter Plan of Treatment Not on file documented as of this encounter Visit Diagnoses Not on filedocumented in this encounter Care Teams Boatwright Relationship Specialty Start Date End Date Yuan Mccracken MD [address] [place] [phone] PCP - General Family Medicine 09/23/22 documented as of this encounter
--- OUTSIDE RECORDS SUMMARY | 2025-02-15 10:07 | XMS_ITS | Encounter Summary ---
Author Organization [facility] [employer] Address [address] [place] [address] Care Team Providers Care Receipt And Report Clerk Name Role Phone Yuan Mccracken MD Primary Care Provider [phone] Encounter Details Date Type Department Care Team (Late st Contact Info) Description 01/26/2021 Transcribed Document [facility] [place] [address] [place] [address] ProviderPerry MD [address], [place] [id number] Social History Tobacco Use Types Packs/Day Years Used Date Smoking Tobacco: Never Assessed Comments Unknown Sex and Gender Information Value Date Recorded Sex Assigned at Not on file Legal Sex Female 12:32 PM CDT Gender Identity Not on file Sexual Orientation Not on file documented as of this encounter Miscellaneous Notes * Cerner Conversion Note - Perry ProviderMD - 01/26/2021 3:30 PM CDT Attempt to Treat, PT Entered On: 01/26/2021 15:49 EDT Performed On: 01/26/2021 15:30 EDT by FRANCISCO MACEDO PT Attempt to Treat Inability to Treat Comment : BLE compression wraps intact and have not drained through at all. Some tape added to secure top on LLE. Change to every other day changes beginning today. Pt prefers this as well. Plan to change 01/27. FRANCISCO MACEDO PT - 01/26/2021 15:47 EDT Electronically signed by Carlotta Cox [place] Conversion Architectural Technologist Cerner at 12/07/2022 6:30 PM CDT documented in this encounter Plan of Treatment Not on file documented as of this encounter Visit Diagnoses Not on filedocumented in this encounter Care Teams Receipt And Report Clerk Relationship Specialty Start Date End Date Yuan Mccracken MD [address] [place] [phone] PCP - General Family Medicine 09/23/22 documented as of this encounter
--- OUTSIDE RECORDS SUMMARY | 2025-02-15 10:07 | XMS_ITS | Encounter Summary ---
Author Organization [facility] Init iatives Address [address] [place] [address] Care Team Providers Care Control Technician Name Role Phone Yuan Mccracken MD Primary Care Provider [phone] Encounter Details Date Type Department Care Team (Late st Contact Info) Description 01/19/2021 Transcribed Document [facility] [place] [address] [place] [address] ProviderPerry MD [address] [place], [place] [id number] Social History Tobacco Use Types Packs/Day Years Used Date Smoking Tobacco: Never Assessed Comments Unknown Sex and Gender Information Value Date Recorded Sex Assigned at Not on file Legal Sex Female 12:32 PM CDT Gender Identity Not on file Sexual Orientation Not on file documented as of this encounter Miscellaneous Notes * Cerner Conversion Note - Perry ProviderMD - 01/19/2021 1:00 PM CDT Treatment Intervention, OT Entered On: 01/22/2021 15:40 EDT Performed On: 01/22/2021 15:30 EDT by Georgina Caldwell, Non Emp Student Occupational Therapist General Information, OT Visit Type, OT : Treatment Note Patient Orders : Order Date Order Ordering 01/16/2021 19:55 OT Evaluation and Treatment Ordered By: PRINCESS RIVERA MD 01/19/2021 13:00 Occupational Therapy Additional Tx Ordered By: Active Diagnoses : 01/16/2021 12:00 Acidosis 01/16/2021 [...] ADLs and functional mobility due to weakness. Admission Date : 01/16/2021 19:34 Co-treated by, OT : civil engineering assistant (GLUE SPECIALTY SUPERVISOR) Personal Devices : Personal Devices Dentures, upper Assistive Devices : Assistive Devices No Devices Recorded Isolation Maintained : Contact Georgina Caldwell Non Emp Student Occupational Therapist - 01/22/2021 15:37 EDT General Status Patient Received Status : Supine in bed Treatment Start Time : 01/22/2021 15:12 EDT Patient Left Status : Supine in bed, RN/PCT informed, All needs met and within reach RN/PCT Informed Comment : STEPHEN logan/clau Treatment End Time : 01/22/2021 15:30 EDT Treatment Time : 18 Minute(s) Georgina Caldwell Non Emp Student Occupational Therapist - 01/22/2021 15:37 EDT Self Care/Home Management, OT Grooming Assist Level, OT : Supervision or set-up Grooming Comment, OT : Sitting EOB Georgina Caldwell Non Emp Student Occupational Therapist - 01/22/2021 15:37 EDT Functional Mobility Mobility Grid Supine to Sit : Supervision/set-up Sit to Supine : Rehab Minimal assistance Georgina Caldwell Non Emp Student Occupational Therapist - 01/22/2021 15:37 EDT Plan of Care, OT OT Tx Plan/Goals Established w Patient : Yes Georgina Caldwell Non Emp Student Occupational Therapist - 01/22/2021 15:37 EDT Tar Leveler Goals, OT Grooming LTG Grid Goal #1 Activity : Grooming Assist : Independent, modified Date to Meet : 02/02/2021 EDT Goal Status : Progressing, continue Comment : seated EOB Georgina Caldwell Non Emp Student Occupational Therapist - 01/22/2021 15:37 EDT Dressing, Lower Body LTG Grid Goal #1 Activity : Dressing, Lower Body Assist : Assist, minimal Equipment : Other: AE as needed Date to Meet : 02/02/2021 EDT Goal Status : Initial goal Georgina Caldwell Non Emp Student Occupational Therapist - 01/22/2021 15:37 EDT Toilet Transfer LTG Grid Goal #1 Activity : Toilet Transfer, Stand Pivot Sit Assist : Supervision or set up Date to Meet : 02/02/2021 EDT Goal Status : Progressing, continue Georgina Caldwell Non Emp Student Occupational Therapist - 01/22/2021 15:37 EDT Treatment Note Subjective Comment : Pt agreeable. Patient's Response to Treatment : Pt tolerated tx fair. Additional Objective Information : Pt found supine in bed on arrival. Pt with Supervision from supine to sit. Pt sat EOB and completed grooming task with setup. Pt completed exercises EOB with GLUE SPECIALTY SUPERVISOR. Pt with SOB and requested to go back to supine. Pt with mod A to return to supine. Pt left supine in bed with all needs met and CL in reach. Georgina Caldwell Non Emp Student Occupational Therapist - 01/22/2021 15:37 EDT Assessment : Pt progressing towards goals. OTR/L has reviewed and agrees with documentation PAT SAVAGE OTR/L - 01/22/2021 15:41 EDT Plan for Treatment : Cont OT POC Georgina Caldwell Non Emp Student Occupational Therapist - 01/22/2021 15:37 EDT Pain Assessment Pain Scaled Used : 0-10 Pain scale Pain Score Pre-Intervention : 0 Georgina Caldwell Non Emp Student Occupational Therapist - 01/22/2021 15:37 EDT Image 1 - Images currently included in the form version of this document have not been included in the text rendition version of the form. Anticipated Discharge Needs, OT/PT Anticipated Discharge to : Unit, rehabilitation Georgina Caldwell Non Emp Student Occupational Therapist - 01/22/2021 15:[address] OT Charges OT Selfcare/Hm Mgmt Ea 15 Min : 1 Georgina Caldwell Non Emp Student Occupational Therapist - 01/22/2021 15:37 EDT Electronically signed by Gayle Laguerre Conversion Industrial Relations Officer Cerner at 12/10/2022 9:06 AM CDT documented in this encounter Plan of Treatment Not on file documented as of this encounter Visit Diagnoses Not on filedocumented in this encounter Care Teams Control Technician Relationship Specialty Start Date End Date Yuan Mccracken MD [facility] [place] [address] PCP - General Family Medicine 09/23/22 documented as of this encounter
--- OUTSIDE RECORDS SUMMARY | 2025-02-15 10:07 | XMS_ITS | Encounter Summary ---
Author Organization [facility] Init iatives Address [address] [place] [address] Care Team Providers Care Utility Bill Collector Name Role Phone Yuan Mccracken MD Primary Care Provider [phone] Encounter Details Date Type Department Care Team (Late st Contact Info) Description 01/16/2021 Transcribed Document [facility] [place] [address] [place] [address] ProviderPerry MD [address], [place] [id number] Social History Tobacco Use Types Packs/Day Years [...] MD - 01/16/2021 5:30 PM CDT ED Triage Entered On: 01/16/2021 17:39 EDT Performed On: 01/16/2021 17:33 EDT by Dulce Miller RN ED Triage Across the Room Chief Complaint : Via EMS for SOA x 2-3 weeks, increased 2-3 days. Pt denies medical treatment for years. Rec'd solumedrol 125mg IM and xopenex neb en route. Reports mild chest discomfort on arrival. Triage Date/Time : 01/16/2021 17:33 EDT Dulce Miller RN - 01/16/2021 17:33 EDT DCP GENERIC CODE Tracking Acuity : 2 - Emergent Tracking Group : [facility] ED Dulce Miller RN - 01/16/2021 17:33 EDT Mode of Arrival : Stretcher Transported to ED by : Ambulance/ALS EMS Service : [facility] To Room Via : Stretcher Accompanied By : Unaccompanied ED Vital Signs : Document Height & Weight : Document ED Allergies : Document ED Reason for Visit : Document Dulce Miller RN - 01/16/2021 17:33 EDT Infectious Disease History Has the patient ever been tested for COVID-19? : No, Patient stated Does patient have symptoms of COVID-19? : Yes COVID19 Screening : No Experiencing Infectious Disease Symptoms : Difficulty breathing Physical contact outside [place] in the last 30 days : No Infectious Disease History : Chicken pox/Shingles, Measles, Mumps, Pertussis (Whooping cough) Tuberculosis Symptoms : None Dulce Miller RN - 01/16/2021 17:33 EDT Vital Signs ED Temperature Source : Oral Temperature Mode : Fahrenheit Temperature, Fahrenheit : 98.7 Deg F ED Pain : Yes Clinical Temperature, C : 37.1 Deg C Oxygen Therapy Mode : Room air Peripheral Pulse Rate : 122 bpm (HI) Respiratory Rate : 44 Breaths/Min (HI) Systolic Blood Pressure : 136 mmHg Diastolic Blood Pressure : 65 mmHg Oxygen Saturation : 98 % Dulce Miller RN - 01/16/2021 17:33 EDT Allergy (As Of: 01/16/2021 17:39:28 EDT) Allergies (Active) No Known Allergies Estimated Onset Date: Unspecified ; Created By: Dulce Miller RN; Reaction Status: Active ; Category: Drug ; Substance: No Known Allergies ; Type: Allergy ; Updated By: Dulce Miller RN; Reviewed Date: 01/16/2021 17:35 EDT Diagnosis Control ED (As Of: 01/16/2021 17:39:28 EDT) Diagnoses(Active) Shortness of breath Date: 01/16/2021 ; Diagnosis Type: Reason For Visit ; Confirmation: Complaint of ; Clinical Dx: Shortness of breath ; Classification: Medical ; Clinical Service: Non-Specified ; Code: PNED ; Probability: 0 ; Diagnosis Code: [id number] ED Height and Weight Height Source : Stated Height Entry Format : Cutler Height, Feet : 5 ft(Converted to: 152 cm, 60 Inch) Height, Inches : 4 Inch(Converted to: 0 ft 4 Inch, 10.16 cm) Clinical Height : 162.56 cm Weight Source, ED : Critical estimated dosing weight Weight Entry Format : Cutler Weight, Pounds : 270 lb Clinical Dosing Weight : 122.73 kg Body Surface Area (BSA) : 2.22 m2 Body Mass Index : 46.4 kg/m2 (>HHI) Riley Body Weight (IBW) : 54.3 kg Dulce Miller RN - 01/16/2021 17:33 EDT Pain Assessment Pain Assessment : Initial assessment Pain Scale Used : 0-10 Scale Dulce Miller RN - 01/16/2021 17:33 EDT Pain Scale Intensity : 4 Dulce Miller RN - 01/16/2021 17:33 EDT Image 4 - Images currently included in the form version of this document have not been included in the text rendition version of the form. documented in this encounter Plan of Treatment Not on file documented as of this encounter Visit Diagnoses Not on filedocumented in this encounter Care Teams Utility Bill Collector Relationship Specialty Start Date End Date Yuan Mccracken MD [address] [place] [phone] PCP - General Family Medicine 09/23/22 documented as of this encounter
--- OUTSIDE RECORDS SUMMARY | 2025-02-15 10:07 | XMS_ITS | Encounter Summary ---
Author Organization [facility] Address [address] [place] [address] Care Team Providers Care Fabric Cutter Name Role Phone Yuan Mccracken MD Primary Care Provider [phone] Encounter Details Date Type Department Care Team (Late st Contact Info) Description 01/27/2021 Transcribed Document [facility] [place] Family Medicine [facility] [place] [address] ProviderPerry MD [address] [place] [address] Social History Tobacco Use Types Packs/Day Years Used Date Smoking Tobacco: Never Assessed Comments Unknown Sex and Gender Information Value Date Recorded Sex Assigned at Not on file Legal Sex Female 12:32 PM CDT Gender Identity Not on file Sexual Orientation Not on file documented as of this encounter Miscellaneous Notes * Cerner Conversion Note - Perry Nunes MD - 01/27/2021 8:49 PM CDT Patient: CHANI VELASQUEZ Age: 60 years Sex: Female : 1960 Associated Diagnoses: None Author: ECHO DUNN MD-INF Basic Information cc: bilateral leg cellulitis HISTORY OF PRESENT ILLNESS 60-year-old female with no medical care for many years who was admitted 01/16 after she presented with progressive dyspnea and erythema of her legs. On presentation she had severe metabolic acidosis, hyperkalemia, acute kidney failure, WBC 21. She was noted to have a right perihilar infiltrate as well as bilateral LE cellulitis. She was started on doxycycline + rocephin then changed to vanc, zosyn and doxycycline. She was found to have mild left hydronephrosis and multiple stones including a 6 mm stone. Her renal function improved and urology has opted for conservative management unless her renal function declines. Her course has been complicated by afib and she has been started on eliquis. Covid pcr negative Despite the antibiotics she has reportedly had progressive right leg swelling and erythema 01/23 afebrile, per hospitaist notes, erythema has improved since vanc started 01/21; WBC 20-> 16-> 14 since vanc started wound culture and MRSA surveillance culture pending PT has recommended whirlpool as an alternative to mist therapy Arterial studies pending 01/26 afebrile, remains on O2 NC and desats with movement, improvement in wounds per PT notes, leukocytosis improving, OTTO's abnormal 01/27 afebrile, weaned to 2L O2 NC leg wounds continue to improve PAST MEDICAL HISTORY Chronic LE edema Nephrolithiasis Acute on ?chronic kidney disease BMI 44 SH quit smoking 12 years ago has been placed in a NH after ICH Review of Systems ROS reviewed as documented in chart Health Status Current medications: (Selected) Inpatient Medications Ordered Dulcolax Laxative: 5 mg, Oral, Daily, PRN: Constipation DuoNeb 0.5 mg-2.5 mg/3 mL inhalation solution: 3 mL, Nebulized Inhalation, RT_Q4H DuoNeb 0.5 mg-2.5 mg/3 mL inhalation solution: 3 mL, Nebulized Inhalation, RT_Q6H, PRN: Wheezing Eliquis: 5 mg, Oral, [id number] Lac-Hydrin 12% topical lotion: 1 Application, Topical, BID Lasix: 40 mg, Oral, BID Melatonin: 1 mg, Oral, At Bedtime, PRN: Sleep MiraLax: 17 Gram, Oral, Daily, PRN: Constipation Mucinex: 600 mg, Oral, BID, PRN: Cough Pepcid: 20 mg, Oral, Daily Tylenol: 650 mg, Oral, Q4H, PRN: Pain (Mild 1-3) Zofran: 4 mg, IV Push, Q4H, PRN: Nausea albuterol-ipratropium 100 mcg-20 mcg/inh inhalation aerosol: 1 [...] mL/Hr, IV Piggyback, Q6H, PRN: Other (See Comment) Physical Examination VS/Measurements Vitals Signs (last 24 hrs) Last Charted Minimum Maximum Temp 97.8 (JAN 27 17:23) 97.8 (JAN 27 17:23) 98.3 (JAN 26 23:52) Apical HR 78 (JAN 27 20:37) 74 (JAN 27 08:36) 78 (JAN 27 20:37) Mon HR 73 (JAN 27 17:23) 61 (JAN 07 23:56) 73 (JAN 27 17:23) Resp Rate 17 (JAN 27 17:23) 16 (JAN 08 08:46) 18 (JAN 26 21:32) SBP 104 (JAN 27 17:23) 104 (JAN 27 17:23) 129 (JAN 27 13:00) DBP 62 (JAN 27 17:23) 62 (JAN 27 17:23) 79 (JAN 27 13:00) MAP 73 (JAN 27 17:23) 73 (JAN 27 17:23) 93 (JAN 27 13:00) SpO2 96 (JAN 08 19:36) 95 (JAN 08 05:29) 100 (JAN 26 21:32) General: Alert and oriented, No acute distress, appears chronically ill and older than stated age. Eye: Extraocular movements are intact, Normal conjunctiva. HENT: Normocephalic, Oral mucosa is moist. Neck: Supple, Non-tender. Respiratory: Respirations are non-labored, decreased bs at bases. Cardiovascular: Normal rate, No murmur. Gastrointestinal: Soft, Non-tender. Musculoskeletal: No deformity. Integumentary: severe bilateral lymphedema with thickened skin, discoloration and cobblestoning , the right leg has a very large ulceration with a fetid odor on the posterior aspect; erythema somewhat improved. Review / Management Results review: Labs (Last four charted values) WBC H 10.8 (JAN 08) H 11.6 (JAN 07) H 12.4 (JAN 06) H 13.0 (TOM 05) HB L 7.9 (JAN 08) L 8.3 (TOM 07) L 8.0 (TOM 06) L 8.4 (TOM 05) HCT L 26.4 (TOM 08) L 27.7 (TOM 07) L 26.8 (TOM 06) L 29.0 (TOM 05) Plt H 424 (JAN 08) H 414 (TOM 07) H 392 (TOM 06) H 399 (TOM 05) Na 139 (TOM 08) 141 (TOM 07) 137 (TOM 06) 137 (TOM 05) K 4.6 (TOM 08) 4.5 (TOM 07) 4.5 (TOM 06) 4.4 (TOM 05) Cl 110 (TOM 08) 110 (TOM 07) 110 (TOM 06) 109 (TOM 05) CO2 23 (TOM 08) 24 (JAN 07) 21 (JAN 06) 24 (JAN 05) BUN 22 (JAN 08) 22 (JAN 07) H 23 (JAN 06) H 26 (JAN 05) Cr H 1.30 (JAN 08) H 1.40 (JAN 07) H 1.30 (JAN 06) H 1.40 (JAN 05) Glu R 80 (JAN 08) 81 (JAN 07) 86 (JAN 06) H 124 (JAN 05) Ca L 8.1 (JAN 08) L 8.3 (JAN 07) L 7.9 (JAN 06) L 7.9 (JAN 05) Lactic 2.0 (JANUARY 19) C 2.5 (JANUARY 17) C 2.3 (JANUARY 17) C 2.6 (JANUARY 16) PT 11.9 (JAN 20) INR 1.1 (JAN 20) AST 16 (JAN 08) 20 (JAN 06) 25 (JAN 05) H 50 (JANUARY 19) ALT 18 (JAN 08) 21 (JAN 06) 28 (JAN 05) 36 (JANUARY 19) ALK P 56 (JAN 08) 53 (JAN 06) 57 (JAN 05) 86 (JANUARY 19) T Bili 0.4 (JAN 08) 0.9 (JAN 06) 0.5 (JAN 05) 0.5 (JANUARY 19) PTN L 6.0 (JAN 08) L 5.9 (JAN 06) L 6.3 (JAN 05) L 6.2 (JANUARY 19) ALB L 1.5 (JAN 08) L 1.5 (JAN 06) L 1.5 (JAN 05) L 1.4 (JANUARY 19) Troponin <0.015 (JANUARY 16) . Impression and Plan IMPRESSION -- Bilateral LE cellulitis R>>L Infected ulcer right posterior calf Fetid odor desite therapy with vancomycin and zosyn Suspect ischemic etiology Corynebacterium from wound is a likely contaminant -- Right perihilar infiltrate -- Acute/ ?chronic kidney disease- improving -- Nephrolithiasis -- Claudication -- Prior tobacco -- BMI 44 -- RLL lung nodule RECOMMENDATIONS -- stop vanc and zosyn --continue doxycyclne -- short course zyvox -- PT consult for mist therapy to right leg -- s/p vascular consult 01/23 -- probiotic Electronically signed by [facility] Conversion Metallurgical Specialist Cerner at 12/07/2022 6:09 PM CDT documented in this encounter Plan of Treatment Not on file documented as of this encounter Visit Diagnoses Not on filedocumented in this encounter Care Teams Fabric Cutter Relationship Specialty Start Date End Date Yuan Mccracken MD [address] [place] [phone] PCP - General Family Medicine 09/23/22 documented as of this encounter
--- OUTSIDE RECORDS SUMMARY | 2025-02-15 10:07 | XMS_ITS | Encounter Summary ---
Author Organization [facility] Init iatives Address [address] [place] [address] Care Team Providers Care Male Infertility Specialist Name Role Phone Yuan Mccracken MD Primary Care Provider [phone] Encounter Details Date Type Department Care Team (Late st Contact Info) Description 01/28/2021 Transcribed Document [facility] [place] [address] [place] [address] ProviderPerry MD [address] [place] [address] Social History Tobacco Use Types Packs/Day Years Used Date Smoking Tobacco: Never Assessed Comments Unknown Sex and Gender Information Value Date Recorded Sex Assigned at Not on file Legal Sex Female 12:32 PM CDT Gender Identity Not on file Sexual Orientation Not on file documented as of this encounter Miscellaneous Notes * Cerner Conversion Note - Perry Nunes MD - 01/28/2021 8:04 AM CDT UM Authorization Entered On: 01/28/2021 8:04 EDT Performed On: 01/28/2021 8:04 EDT by DWIGHT PERALTA RN-Utilization Review Primary Insurance Authorization Authorization and Policy Numbers : Insurance 1 Health Plan: MEDICAID PENDING Policy Number: [id number] Authorization Number: Insurance Primary Name : MEDICAID PENDING Policy Number: [id number] Authorized Service Begin Date-Primary : 01/16/2021 EDT Authorization Comments-Primary : MEDICAID PENDING Historical Authorization Comments-Primary : Comment 1: MEDICAID PENDING (DWIGHT PERALTA, RN-Utilization Review 01/27/2021 08:41) Comment 2: MEDICAID PENDING (DWIGHT PERALTA, RN-Utilization Review 01/26/2021 08:45) Comment 3: MEDICAID PENDING (DWIGHT PERALTA, RN-Utilization Review 01/23/2021 09:42) Comment 4: SELF PAY (DWIGHT PERALTA, RN-Utilization Review 01/22/2021 08:29) Comment 5: SELF PAY (DWIGHT PERALTA, RN-Utilization Review 01/21/2021 08:19) Comment 6: Self pay at the time of review (CARMEN MARLOW RN 01/20/2021 13:51) DIWGHT PERALTA, RN-Utilization Review - 01/28/2021 8:04 EDT Electronically signed by Gayle Laguerre Conversion Type Disk Quality Control Supervisor Cerner at 12/07/2022 6:05 PM CDT documented in this encounter Plan of Treatment Not on file documented as of this encounter Visit Diagnoses Not on filedocumented in this encounter Care Teams Male Infertility Specialist Relationship Specialty Start Date End Date Yuan Mccracken MD [address] [place] [phone] PCP - General Family Medicine 09/23/22 documented as of this encounter
--- OUTSIDE RECORDS SUMMARY | 2025-02-15 10:07 | XMS_ITS | Encounter Summary ---
Author Organization [facility] [employer] Init iatives Address [address] [place] [address] Care Team Providers Care Adult Basic Education Teacher Name Role Phone Yuan Mccracken MD Primary Care Provider [phone] Encounter Details Date Type Department Care Team (Late st Contact Info) Description 01/19/2021 Transcribed Document [facility] Family Medicine [address] [place] [address] ProviderPerry MD [address] [place], [place] [address] Social History Tobacco Use Types Packs/Day Years Used Date Smoking Tobacco: Never Assessed Comments Unknown Sex and Gender Information Value Date Recorded Sex Assigned at Not on file Legal Sex Female 12:32 PM CDT Gender Identity Not on file Sexual Orientation Not on file documented as of this encounter Miscellaneous Notes * Cerner Conversion Note - Perry ProviderMD - 01/19/2021 1:18 PM CDT Treatment Intervention, PT Entered On: 01/22/2021 16:23 EDT Performed On: 01/22/2021 15:30 EDT by TODD ENRIQUEZ PTA General Information, PT Visit Type, PT : [...] and Treat Ordered By: ECHO DUNN MD-INF Active Diagnoses : 01/16/2021 12:00 Acidosis 01/16/2021 12:00 Cellulitis of unspecified part of limb 01/16/2021 12:00 General medical 01/16/2021 12:00 Hyperkalemia 01/16/2021 12:00 Hyperventilation 01/16/2021 12:00 Other disorders of electrolyte and fluid balance, not elsewhere classified 01/16/2021 12:00 Other specified abnormal findings of blood chemistry 01/16/2021 12:00 Shortness of breath Therapy Diagnosis, PT : open area on coccyx Admission Date : 01/16/2021 19:34 Co-treated by, PT : Other: occupational therapist student Personal Devices : Personal Devices Dentures, upper Assistive Devices : Assistive Devices No Devices Recorded Isolation Maintained : Contact TODD ENRIQUEZ PTA 01/22/2021 16:18 EDT General Status Patient Received Status : Supine in bed Treatment Start Time : 01/22/2021 15:11 EDT Patient Left Status : Supine in bed, RN/PCT informed, All needs met and within reach RN/PCT Informed Comment : nsg Calin Treatment End Time : 01/22/2021 15:30 EDT Treatment Time : 19 Minute(s) TODD ENRIQUEZ PTA 01/22/2021 16:18 EDT Therapeutic Activities Sitting Activities Grid Activity #1 Activities : Static Position : Sit unsupported Time : 8 minutes Assistance : Supervision Patient Response/Comment : pt sat EOB TODD ENRIQUEZ PTA 01/22/2021 16:18 EDT Functional Mobility Mobility Grid Bed Scooting : Rehab Minimal assistance (Comment: x 2 [TODD ENRIQUEZ PTA 01/22/2021 16:18 EDT] ) Supine to Sit : Supervision/set-up Sit to Supine : Rehab Moderate assistance (Comment: BLE [TODD ENRIQUEZ PTA 01/22/2021 16:18 EDT] ) TODD ENRIQUEZ PTA - 01/22/2021 16:18 EDT Gait Training/Assessment, PT Gait Assistance Level : Unable to assess/activity not appropriate Gait Training Comment : pt declined attempting to stand today TODD ENRIQUEZBENJAMIN - 01/22/2021 16:18 EDT Cognitive Treatment, PT Orientation : Oriented x 4 TODD ENRIQUEZ PTA - 01/22/2021 16:18 EDT Edu Topics Physical Therapy Education Grid Bed Mobility Training : Needs further teaching Gait Training : Needs further teaching Role of Physical Therapy : Verbalizes understanding Safety : Needs further teaching Transfer Training : Needs further teaching TODD ENRIQUEZ PTA - 01/22/2021 16:18 EDT Indication Assesessment, PT Physical Therapy Indicated : Yes TODD ENRIQUEZ PTA - 01/22/2021 16:18 EDT Plan of Care, PT PT Tx Plan/Goals Established w Patient : Yes TODD ENRIQUEZ PTA - 01/22/2021 16:18 EDT Short Term Goals Mobility/Bed Mobility STG PT Grid Goal #1 Activity : Supine to sit Assist : Assist, minimal Date to Meet : 01/26/2021 EDT Goal Status : Goal met Date Met : 01/21/2021 EDT TODD ENRIQUEZ PTA - 01/22/2021 16:18 EDT Ambulation STG Grid Goal #1 Device : Walker, front wheel Distance : 50 ft Assist : Assist, minimal Date to Meet : 01/26/2021 EDT Goal Status : Intial Goal TODD ENRIQUEZ PTA - 01/22/2021 16:18 EDT Other PT STG Grid Goal #1 Goal : Open area to measure 1.5cmX0.8cm Date to Meet : 01/28/2021 EDT Goal Status : Progressing, continue TODD ENRIQUEZ PTA - 01/22/2021 16:18 EDT Visual Stylist Goals Mobility/Bed Mobility LTG PT Grid Goal #1 Goal #2 Activity : Supine to sit Sit to stand Assist : Independent, modified Independent, modified Date to Meet : 02/02/2021 EDT 02/02/2021 EDT Goal Status : Progressing, continue Progressing, continue TODD ENRIQUEZ PTA - 01/22/2021 16:18 EDT TODD ENRIQUEZ PTA - 01/22/2021 16:18 EDT Ambulation LTG Grid Goal #1 Device : Walker, front wheel Distance : 150 ft Assist : Independent, modified Date to Meet : 02/02/2021 EDT Goal Status : Progressing, continue TODD ENRIQUEZ, STOREKEEPER HELPER - 01/22/2021 16:18 EDT Other PT LTG Grid Goal #1 Other : Open area to measure 1cmX0.5cm Date to Meet : 02/04/2021 EDT Goal Status : Progressing, continue TODD ENRIQUEZ STOREKEEPER HELPER - 01/22/2021 16:18 EDT Treatment Note Subjective Comment : pt agreeable to PTx, nsg cleared pt for PTx Assessment : pt has very poor endurance at this time due to feeling SOA, pt would benefit from short term rehab to increase endurance and decrease safety risk and caregiver burden Plan for Treatment : continue POC TODD ENRIQUEZ, STOREKEEPER HELPER - 01/22/2021 16:18 EDT Pain Assessment Pain Score During-Intervention : 4 Location : Legs, bilateral Pain Improved by : Relaxation, Repositioning TODD ENRIQUEZ, STOREKEEPER HELPER - 01/22/2021 16:18 EDT Image 1 - Images currently included in the form version of this document have not been included in the text rendition version of the form. Anticipated Discharge Needs, OT/PT Anticipated Discharge to : Unit, rehabilitation Recommend Continued Therapy at Discharge : Yes TODD ENRIQUEZ, STOREKEEPER HELPER - 01/22/2021 16:[address] [facility] PT Charges STOREKEEPER HELPER PT Ther Activities Ea 15 Min-STOREKEEPER HELPER : 1 TODD ERNIQUEZBENJAMIN - 01/22/2021 16:18 EDT Electronically signed by Carlotta [facility] Conversion Automotive Parts Salesperson Cerner at 12/10/2022 9:05 AM CDT documented in this encounter Plan of Treatment Not on file documented as of this encounter Visit Diagnoses Not on filedocumented in this encounter Care Teams Adult Basic Education Teacher Relationship Specialty Start Date End Date Yuan Mccracken MD [facility] [address] PCP - General Family Medicine 09/23/22 documented as of this encounter
--- OUTSIDE RECORDS SUMMARY | 2025-02-15 10:07 | XMS_ITS | Encounter Summary ---
Author Organization [facility] Init iatives Address [address] [place] [address] Care Team Providers Care Repairer Wood Furniture Name Role Phone Yuan Mccracken MD Primary Care Provider [phone] Encounter Details Date Type Department Care Team (Late st Contact Info) Description 01/20/2021 Transcribed Document [facility] Family Medicine [address] [place] [address] ProviderPerry MD [address] [place], [place] [address] Social History Tobacco Use Types Packs/Day Years Used Date Smoking Tobacco: Never Assessed Comments Unknown Sex and Gender Information Value Date Recorded Sex Assigned at Not on file Legal Sex Female 12:32 PM CDT Gender Identity Not on file Sexual Orientation Not on file documented as of this encounter Miscellaneous Notes * Cerner Conversion Note - Perry Nunes MD - 01/20/2021 11:00 AM CDT WOCN Inpatient Documentation Entered On: 01/20/2021 13:53 EDT Performed On: 01/20/2021 11:00 EDT by Maryann Liu Rn-Enterostomal WOCN Admission Date : Admit Date 01/16/2021 19:[address] : Diagnosis (10) Shortness of breath General medical Acidosis Other specified abnormal findings of blood chemistry Hyperventilation Other disorders of electrolyte and fluid balance, not elsewhere classified Hyperkalemia Cellulitis of unspecified part of limb Dyspnea, unspecified Dyspnea, unspecified Reason for WOCN Visit : Initial consult Admitting Diagnosis ST : Reason for Admission SOA, Acidosis, Renal Failure, hyperkalemia, argenis lo Noe, Maryann, Rn-Enterostomal - 01/20/2021 13:50 EDT WOCN Assessment Summary : Patient seen by the WOCN department. Patient with BLE edema, erythema and hyperkeratosis. Per physician, edema is noted to be decreasing. Serous/SS drainage to wicking underpads/. 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 Periwound with erythema. Discussed findings/recommendations with BRANDO BUENO. Recommend MIST therapy to coccyx DTPI. Recommend Lac-Hydrin 12% to LLE and foot and Moisturizer to RLE and foot, avoid between toes for both feet. PIPP in place, patient on AMADO surface. Please see orders section for additional recommendations. If alteration in skin integrity observed or change in wound bed presentation noted please contact WOCN department. Maryann Liu Rn-Enterostomal - 01/20/2021 14:20 EDT Wound & Pressure Ulcer WOCN Wound Pressure Ulcer Documentation : [id number]-[id number] Abnormality: Leg Left, Right Lower on 01/20/2021 11:00 by Maryann Liu Rn-Enterostomal I/W/A Present on Admission to Hospital: Yes I/W/A Drainage Amount: Minimal I/W/A Drainage Description: Serosanguineous, Serous I/W/A Incision/Wound Comment: hyperkeratosis Pressure Ulcer Assessment: Coccyx on 01/20/2021 11:00 by Maryann Liu Rn-Enterostomal Present on Adm to Hosp: Yes Stage: Deep tissue pressure injury Device Related: No Dressing Status: Intact Dressing Activity: Assessed, Not due Wound Bed Description: Intact skin (dark red/purple) Bed Color(s): Purple/Maroon Wound Edge: Attached Surrounding Tissue: Erythema Length: 4 Width: 0.5 Depth: 0.1 Drainage Amount: None Photographed: No Healing, PU: Initial WOCN Ostomy Documentation : No ostomy assessments reported. Maryann Liu Rn-Enterostomal - 01/20/2021 13:50 EDT documented in this encounter Plan of Treatment Not on file documented as of this encounter Visit Diagnoses Not on filedocumented in this encounter Care Teams Repairer Wood Furniture Relationship Specialty Start Date End Date Yuan Mccracken MD [address] [place] [address] PCP - General Family Medicine 09/23/22 documented as of this encounter
--- OUTSIDE RECORDS SUMMARY | 2025-02-15 10:07 | XMS_ITS | Encounter Summary ---
Author Organization [facility] In iatives Address [address] [place] [address] Care Team Providers Care Personnel Records Clerk Name Role Phone Yuan Mccracken MD Primary Care Provider [phone] Encounter Details Date Type Department Care Team (Late st Contact Info) Description 01/19/2021 Transcribed Document [facility] Family Medicine [address] [place] [address] ProviderPerry MD [address], [place] [address] Social History Tobacco Use Types Packs/Day Years Used Date Smoking Tobacco: Never Assessed Comments Unknown Sex and Gender Information Value Date Recorded Sex Assigned at Not on file Legal Sex Female 12:32 PM CDT Gender Identity Not on file Sexual Orientation Not on file documented as of this encounter Miscellaneous Notes * Cerner Conversion Note - Perry Nunes MD - 01/19/2021 11:18 AM CDT DATE OF CONSULTATION: 01/19/2021 HISTORY OF PRESENT ILLNESS: The patient is a 60-year-old female who is admitted with multiple medical problems. She was found to have a creatinine of 6.5 with a potassium of 6.8 on admission. This was aggressively treated. CT scan shows a 5 mm stone in the distal left ureter with a 3 mm stone proximal to that. She also has a 6 mm renal stone. There is mild hydronephrosis. The patient is not having any pain. She has had kidney stones previously. The urine does not appear to be infected. Initially, her white count was [id number]. With hydration, her renal function is now showing a creatinine of 2.7 with a normal potassium. The white blood count is coming down as well. PAST SURGICAL HISTORY: Hysterectomy. MEDICAL PROBLEMS: Listed on the chart. DRUG ALLERGIES: None. MEDICATIONS: Listed on the chart. REVIEW OF SYSTEMS: HEENT: No headache or visual disturbances. RESPIRATORY: Mild shortness of breath. CARDIOVASCULAR: No chest pain. GI: No nausea, vomiting, diarrhea. PHYSICAL EXAMINATION: ABDOMEN: There is no CVA tenderness. Abdomen is soft without masses or organomegaly. IMPRESSION: 1. Left ureteral calculi. 2. Left renal calculus. 3. Acute renal failure. PLAN: Since the renal function is improving and she is not having pain, we will watch this conservatively at this time. If things deteriorate, then we will proceed with stone extraction or stent placement. /[id number] Matt Allen MD [facility]/AQ / [facility] / MODL /[id number] Electronically signed by Carlotta, [facility] Conversion Benzene Washer Cerner at 12/07/2022 6:07 PM CDT documented in this encounter Plan of Treatment Not on file documented as of this encounter Visit Diagnoses Not on filedocumented in this encounter Care Teams Personnel Records Clerk Relationship Specialty Start Date End Date Yuan Mccracken MD [address] [place] [phone] PCP - General Family Medicine 09/23/22 documented as of this encounter
--- OUTSIDE RECORDS SUMMARY | 2025-02-15 10:07 | XMS_ITS | Encounter Summary ---
Author Organization [facility] [employer] Init iatives Address [address] [place] [address] Care Team Providers Care Relations Coordinator Name Role Phone Yuan Mccracken MD Primary Care Provider [phone] Encounter Details Date Type Department Care Team (Late st Contact Info) Description 01/21/2021 Transcribed Document [facility] Family Medicine [address] [place] [address] ProviderPerry MD [address], [place] [address] Social History Tobacco Use Types Packs/Day Years Used Date Smoking Tobacco: Never Assessed Comments Unknown Sex and Gender Information Value Date Recorded Sex Assigned at Not on file Legal Sex Female 12:32 PM CDT Gender Identity Not on file Sexual Orientation Not on file documented as of this encounter Miscellaneous Notes * Cerner Conversion Note - Perry Nunes MD - 01/21/2021 3:03 PM CDT Patient: CHANI VELASQUEZ Age: 60 Years Sex: Female : 1960 Subjective Pt has no acute complaints today states she feels about the same as yesterday. Occasional nausea, no vomiting, diarrhea. Coulter. Nurse concerned about worsening appearance RLE. plan to move from ICU to tele today. Vital Signs T: 37.3 ??C TMIN: 36.7 ??C TMAX: 37.3 ??C HR: 66(Monitored) RR: 31 BP: 152/76 SpO2: 96% Oxygen Settings (Last) Oxygen Therapy Mode: Nasal cannula (01/21/21 08:34:00) Oxygen Flow Rate: 4 Liter/Min (01/21/21 08:34:00) Intake & Output Totals Last 24 Hours (7a-7a) Input Total: 1511.18 mL Output Total: 2130 mL Balance: -618.82 mL Physical Exam General:[Alert and oriented no distress, obese unkempt Neurologic: Awake, alert, and oriented X3, CN II-XII intact]. Eye: anicteric Neck: Supple Lungs: Clear to auscultation and percussion, non-labored respiration]. Heart: Normal rate irreg rhythm; no murmur Abdomen: Soft, non-tender, non-distended, normal bowel sounds, Musculoskeletal:increased swelling, redness and warmth to RLE, cellulitis from toes to knee, light yellow skin drainage, tender to light touch. LLE has chronic appearing dermatitis with slight redness, no warmth or tenderness Psychiatric: Cooperative, appropriate mood and affect Assessment/Plan New onset Atrial Fibrillation with RVR occured overnight, on cardizem drip per night doc, rate mostly controlled still in Afib, reconsult cardiology -magnesium 1.5 should be >2, Mag IV was given overnight; monitor CARD: increased BB dose, stop heparin start eliquis, weaned off cardizem, arrange OP cards f/u Life Threatening Hyperkalemia IV insulin, IV dextrose, IV calcium gluconate Nephrology consult recheck in am -improved morning recheck 5.0 then 3.3-nephrology aware replenished -resolved continuing to monitor NEPH following #Severe metabolic acidosis Received IV Sodium bicarbonate n ER Bicarbonate drip monitor -ABG repeated this morning improving, Ph 7.4 -resolved PULM following #Acute renal failure order urine electrolytes, renal US IVF, monitor, nephrology consult -renal US showed mild left hydro CT scan added: Mild left hydronephrosis from a 5 mm stone in the distal ureter. There is a more proximal nonobstructing 3 mm stone in the distal ureter. -improving with IV fluids- nephrology following -creat 2.5 from 6.5 on admission, neph following, continuing nonbicarbonated IVF continued improvement now 1.9, neph controlling IVF and BP -creat now 1.6; discussed with Dr Salinas he recommended stopping IVF at this point, continue to monitor -creat 1.4 NEPH still following Hypokalemia developed as creat improving, replacing as needed -K normal today receiving PO BID -again mildly low K-IV being given per neph orders -K continues to drop despite supplementation, NEPH ordering replacement and following Left hydronephrosis/ureteral stones CT: Mild left hydronephrosis from a 5 mm stone in the distal ureter. There is a more proximal nonobstructing 3 mm stone in the distal ureter. -urology consulted, asymptomatic -per urology since ureteral stone not causing pain and renal fxn improving-will watch -no pain associated -no plan to remove stone per urology, asymptomatic #Lower ext cellulitis IV Rocephin -R>L US to eval for DVT -slight improvement in LE swelling and redness today -dressings with meta honey; US NEG for DVT -low grade temp overnight 100.6; discussed with Zohary will stop rocephin and start zosyn; WBC at admission 20, now 14 -worsening RLE cellulitis, WBC increased again to 20, ID consulted ? Mobitz type 1 on EKG--PAC/PVC -cards consult-no concern disagreed with arrhythmia having PAC and PVC, will continue to watch, cards signed off Dyspnea chest X ray and Echo breathing treatment as needed ECHO: Normal sized left ventricle. Mild left ventricular hypertrophy. Visually estimated ejection fraction 55% +/- 5%. Normal systolic function. No hemodynamically significant valvular heart disease CXR: Opacity as above. Probably secondary to pneumonia; added doxy and incentive spirometry -pt tachypneic and wheezing, improved with neb tx solumedrol, CXR no change -fluctuates she gets dyspneic when it is time for neb tx, made duonebs scheduled -still tachypneic, CXR today no change since initial no pulmonary edema Pneumonia CXR: Opacity as above. Probably secondary to pneumonia; added doxy and incentive spirometry add sputum culture -no sputum to send for culture continue doxy PO -sputum culture cornyebacterium no s/s performed, ID will also consult on this Right lung nodule on CT scan repeat CT scan six months per RAD to be done via primary care Cholelithiasis per CT scan asymptomatic, primary care follow up #obesity Complicate clinical aspect of care Dispo: hope to get out of ICU tomorrow 01/21; I think when ready for discharge we need to discuss her going to facility, has not been caring for herself at home well at all, now in [place] due to ICH unlikely to ever be home again. DVT Prophylaxis Heparin Full code Time spent 40 min discussing with attending MD, chart, seeing patient. VTE Prophylaxis - Medical Apixaban 5 mg, Oral, Tab, [id number], Routine, Start 01/21/21 10:00:00 EDT, 01/21/21 9:43:00 [...] PRN Eliquis, 5 mg= 1 Tab, Oral, [id number] Lac-Hydrin 12% topical lotion, 1 Application, Topical, BID magnesium sulfate, 2 Gram= 50 mL, IV Piggyback, Daily, PRN magnesium sulfate, 2 Gram= 50 mL, IV Piggyback, Q2H, PRN metoprolol tartrate, 50 mg= 1 Tab, Oral, BID MiraLax, 17 Gram= 1 Packet, Oral, Daily, PRN Mucinex, 600 mg= 1 Tab, Oral, BID, PRN nystatin, [id number] Units= 5 mL, Swish and Swallow , [...] 137 mmol/L 01/21/2021 03:04 EDT Potassium Level 3.9 mmol/L 01/21/2021 12:36 EDT Potassium Level 3.2 mmol/L (Low) 01/21/2021 [...] mg/dL (Low) 01/21/2021 03:04 EDT Magnesium Level 1.9 mg/dL 01/21/2021 12:36 EDT Magnesium Level 1.5 mg/dL 01/21/2021 03:04 [...] ALYC # 2 K/uL 01/21/2021 03:04 EDT [place] Percent Man 4 % 01/21/2021 03:04 EDT Eos Percent Man 2 % 01/21/2021 03:04 EDT Jbphh Percent Man 2 % (High) 01/21/2021 03:04 EDT RBC Morphology Normal 01/21/2021 03:[address] Estimate Adequate 01/21/2021 03:04 EDT Slide Review Add Diff 01/21/2021 03:04 EDT PTT Heparin 75.6 Second(s) (Critical) 01/21/2021 03:04 EDT PTT Heparin 65.3 Second(s) 01/20/2021 22:36 EDT PTT Heparin 50.4 Second(s) 01/20/2021 16:31 EDT Electronically signed by Interface, [facility] Conversion Global Recruiter Cerner at 12/07/2022 6:27 PM CDT documented in this encounter Plan of Treatment Not on file documented as of this encounter Visit Diagnoses Not on filedocumented in this encounter Care Teams Relations Coordinator Relationship Specialty Start Date End Date Yuan Mccracken MD [address] [place] [phone] PCP - General Family Medicine 09/23/22 documented as of this encounter
--- OUTSIDE RECORDS SUMMARY | 2025-02-15 10:07 | XMS_ITS | Encounter Summary ---
Author Organization [facility] Init iatives Address [address] [place] [address] Care Team Providers Care Fresh Work Wrapper Layer Name Role Phone Yuan Mcrcacken MD Primary Care Provider [phone] Encounter Details Date Type Department Care Team (Late st Contact Info) Description 01/16/2021 Transcribed Document [facility] Family Medicine [address] [place] [address] ProviderPerry MD [address] [place], [place] [address] Social History Tobacco Use Types Packs/Day Years Used Date Smoking Tobacco: Never Assessed Comments Unknown Sex and Gender Information Value Date Recorded Sex Assigned at Not on file Legal Sex Female 12:32 PM CDT Gender Identity Not on file Sexual Orientation Not on file documented as of this encounter Miscellaneous Notes * Cerner Conversion Note - Perry Nunes MD - 01/16/2021 8:46 PM CDT ED Discharge Entered On: 01/16/2021 20:46 EDT Performed On: 01/16/2021 20:46 EDT by JENNY CHAN correctional treatment specialist Process Patient Disposition : Admit/Observe Personal Belongings With Patient : Yes Patient Education Completed : Yes Teaching Evaluation : Verbalizes understanding IV Discontinued : No Nursing Documentation Completed : Yes JENNY CHAN RN - 01/16/2021 20:46 EDT Admission, ED Nurse Report Accepted By : ansley TongNurse Report (Hand Off) : Called Accompanied By, Discharge : Other: RN Mode Of Departure : JENNY Toussaint RN - 01/16/2021 20:46 EDT Electronically signed by [facility], [facility] Conversion Organ Tuner Electronic Cerner at 12/07/2022 6:15 PM CDT documented in this encounter Plan of Treatment Not on file documented as of this encounter Visit Diagnoses Not on filedocumented in this encounter Care Teams Fresh Work Wrapper Layer Relationship Specialty Start Date End Date Yuan Mccracken MD [address] [place] [phone] PCP - General Family Medicine 09/23/22 documented as of this encounter
--- OUTSIDE RECORDS SUMMARY | 2025-02-15 10:07 | XMS_ITS | Encounter Summary ---
Author Organization [facility] In iatives Address [address] [place] [address] Care Team Providers Care Package Maker Name Role Phone Yuan Mccracken MD Primary Care Provider [phone] Encounter Details Date Type Department Care Team (Late st Contact Info) Description 01/27/[address] [facility] [place] [address] [place] [address] ProviderPerry MD [address] [place], [place] [id number] Social History Tobacco Use Types Packs/Day Years Used Date Smoking Tobacco: Never Assessed Comments Unknown Sex and Gender Information Value Date Recorded Sex Assigned at Not on file Legal Sex Female 12:32 PM CDT Gender Identity Not on file Sexual Orientation Not on file documented as of this encounter Miscellaneous Notes * Cerner Conversion Note - Perry Nunes MD - 01/27/2021 5:00 AM CDT Chart Check - Review Order Profile Entered On: 01/27/2021 7:26 EDT Performed On: 01/27/2021 5:00 EDT by Griffin Jennings Non Emp RN Chart Check All Active Orders Reviewed : Yes Griffin Jennings Non Emp RN - 01/27/2021 7:26 EDT documented in this encounter Plan of Treatment Not on file documented as of this encounter Visit Diagnoses Not on filedocumented in this encounter Care Teams Package Maker Relationship Specialty Start Date End Date Yuan Mccracken MD [address] [place] [address] PCP - General Family Medicine 09/23/22 documented as of this encounter
--- OUTSIDE RECORDS SUMMARY | 2025-02-15 10:08 | XMS_ITS | Encounter Summary ---
Author Organization [facility] Init iatives Address [address] [place] [address] Care Team Providers Care Mill House Supervisor Name Role Phone Yuan Mccracken MD Primary Care Provider [phone] Encounter Details Date Type Department Care Team (Late st Contact Info) Description 01/22/2021 Transcribed Document [facility] [place] [facility] [place] [address] [place] [address] ProviderPerry MD [address], [place] [address] Social History Tobacco Use Types Packs/Day Years Used Date Smoking Tobacco: Never Assessed Comments Unknown Sex and Gender Information Value Date Recorded Sex Assigned at Not on file Legal Sex Female 12:32 PM CDT Gender Identity Not on file Sexual Orientation Not on file documented as of this encounter Miscellaneous Notes * Cerner Conversion Note - Perry Nunes MD - 01/22/2021 5:00 AM CDT Chart Check - Review Order Profile Entered On: 01/22/2021 5:45 EDT Performed On: 01/22/2021 5:00 EDT by Karina Regalado RN-PATIENT CARE BEDSIDE NON-EXEMPT Chart Check Powerplans Initiated/Discontinued as Appropriate : Yes All Active Orders Reviewed : Yes Karina Regalado RN-PATIENT CARE BEDSIDE NON-EXEMPT - 01/22/2021 5:45 EDT Electronically signed by Gayle Laguerre Conversion Entry Level Sales Consultant Cerner at 12/07/2022 6:23 PM CDT documented in this encounter Plan of Treatment Not on file documented as of this encounter Visit Diagnoses Not on filedocumented in this encounter Care Teams Mill House Supervisor Relationship Specialty Start Date End Date Yuan Mccracken MD [address] [place] [phone] PCP - General Family Medicine 09/23/22 documented as of this encounter
--- OUTSIDE RECORDS SUMMARY | 2025-02-15 10:08 | XMS_ITS | Encounter Summary ---
Author Organization [employer] In iatives Address [address] [place] [address] Care Team Providers Care Water Registrar Name Role Phone Yuan Mccracken MD Primary Care Provider [phone] Encounter Details Date Type Department Care Team (Late st Contact Info) Description 01/17/2021 Transcribed Document [facility] Cardiology [address] [place] [phone] [place] [address] [place] [address] [address] [place] [address] Social History Tobacco Use Types Packs/Day Years Used Date Smoking Tobacco: Never Assessed Comments Unknown Sex and Gender Information Value Date Recorded Sex Assigned at Not on file Legal Sex Female 12:32 PM CDT Gender Identity Not on file Sexual Orientation Not on file documented as of this encounter Miscellaneous Notes * Cerner Conversion Note - Grupo Smith MD - 01/17/2021 6:13 PM EDT Patient: CHANI VELASQUEZ Age: 60 years Sex: Female : 1960 Associated Diagnoses: None Author: GRUPO SMITH MD-CAR Basic Information PCP: Primary Auto Damage Appraiser: None Chief Complaint shortness of breath History of Present Illness 60 year old female presented to the [facility] yesterday with complaints of progressively worsening shortness of breath. The onset of her symptoms was 2-3 days prior to admission. She also has edema in bilateral lower extremities with significant redness and drainage. She does not take any home medications and does not follow regularly with a physician. She has been admitted for treatment of metabolic acidosis, acute kidney injury, hyperkalemia, and cellulitis. She is critically ill and currently in ICU. Cardiology has been consulted regarding abnormal EKG. Review of Systems Constitutional: Negative except as documented in history of present illness. Eye: Negative except as documented in history of present illness. Ear/Nose/Mouth/Throat: Negative except as documented in history of present illness. Respiratory: Negative except as documented in history of present illness. Cardiovascular: Negative except as documented in history of present illness. Gastrointestinal: Negative except as documented in history of present illness. Genitourinary: Negative except as documented in history of present illness. Hematology/Lymphatics: Negative except as documented in history of present illness. Endocrine: Negative except as documented in history of present illness. Immunologic: Negative except as documented in history of present illness. Musculoskeletal: Negative except as documented in history of present illness. Integumentary: Negative except as documented in history of present illness. Neurologic: Negative except as documented in history of present illness. Psychiatric: Negative except as documented in history of present illness. Health Status Allergies (1) Active Reaction No Known Allergies None Documented No qualifying data available Allergies: Allergic Reactions (Selected) No Known Allergies, Allergies (1) Active Reaction No Known Allergies None Documented Current medications: (Selected) Inpatient Medications Ordered Dulcolax Laxative: 5 mg, Oral, Daily, PRN: Constipation DuoNeb 0.5 mg-2.5 mg/3 mL inhalation solution: 3 mL, Nebulized Inhalation, RT_Q6H, PRN: Shortness of Breath MiraLax: 17 Gram, Oral, Daily, PRN: Constipation Pepcid: 20 mg, Oral, Q12H Sodium Chloride 0.9% intravenous solution 1,000 mL: 100 mL/Hr, IntraVENous Tylenol: 650 mg, Oral, Q4H, PRN: Pain (Mild 1-3) Zofran: 4 mg, IV Push, Q4H, PRN: Nausea cefTRIAXone: 1 Gram, 100 mL/Hr, IV Piggyback, [id number] doxycycline + Sodium Chloride 0.9% intravenous solution 100 mL: 100 mg, 50 mL/Hr, IV Piggyback, [id number] heparin: 5,000 Units, SubCutaneous, Q8H nystatin: 500,000 Units, Swish and Spit, QID sodium bicarbonate injection 150 mEq + Dextrose 5% in Water intravenous solution 1,000 mL: 100 mL/hour, IntraVENous, Medications (12) Active Scheduled: (5) cefTRIAXone 1 Gram, IV Piggyback, [id number] doxycycline hyclate + NaCl 0.9% 100 mL 100 mg, IV Piggyback, [id number] famotidine 20 mg tab 20 mg 1 Tab, Oral, Q12H heparin 5,000 units/1 mL inj 5,000 Units 1 mL, SubCutaneous, Q8H nySTATin 100,000 unit/mL susp 5 mL 500,000 Units 5 mL, Swish and Spit, QID Continuous: (2) NaCl 0.9% 1,000 mL 1,000 mL, IntraVENous, 100 mL/Hr sodium bicarbonate 150 mEq + Dextrose 5% in Water 1,000 mL 1,000 mL, IntraVENous PRN: (5) acetaminophen 325 mg tab 650 mg 2 Tab, Oral, Q4H albuterol-ipratropium inh 3 mL 3 mL, Nebulized Inhalation, RT_Q6H bisacodyl EC 5 mg tab 5 mg 1 Tab, Oral, Daily ondansetron 4 mg/2 mL inj 4 mg 2 mL, IV Push, Q4H polyethylene glycol 3350 pwd 17 g pkt 17 Gram 1 Packet, Oral, Daily Problem list: No problem items selected or recorded., No qualifying data available Histories No education data available. Social & Psychosocial Habits Home/Environment 01/16/2021 Living situation: Home/Independent Tobacco Comment: nonsmoker - 01/16/2021 19:16 - DAWNA GAN PA-C Past Medical History: Active Obesity ([id number]) Family History: Entire family history is negative. Procedure history: None Social History Social & Psychosocial Habits Home/Environment 01/16/2021 Living situation: Home/Independent Tobacco Comment: nonsmoker - 01/16/2021 19:16 - DAWNA GAN PA-C . Physical Examination VS/Measurements Vitals Signs (last 24 hrs) Last Charted Minimum Maximum Temp 97.7 (JANUARY 17 12:00) 97.7 (JANUARY 17 12:00) 98.7 (JANUARY 16 17:33) Mon HR 108 (JANUARY 17 17:00) 75 (JANUARY 17 15:00) 117 (JANUARY 17 12:00) Periph HR 122 (JANUARY 16 17:33) 122 (JANUARY 16 17:33) 122 (JANUARY 16 17:33) Resp Rate H 60 (JANUARY 17 17:00) H 28 (JANUARY 17 10:00) H 75 (JANUARY 17 00:00) SBP H 174 (JANUARY 17 17:00) 127 (JANUARY 16 20:45) H 180 (JANUARY 17 14:00) DBP H 97 (JANUARY 17 17:00) 65 (JANUARY 16 17:33) H 126 (JANUARY 17 12:00) MAP 126 (JANUARY 17 17:00) 92 (JANUARY 17 00:30) 141 (JANUARY 17 12:00) SpO2 L 91 (JANUARY 17 17:00) L 57 (JANUARY 17 02:45) 100 (JANUARY 16 22:00) General: Alert and oriented. Eye: Pupils are equal, round and reactive to light. HENT: Normocephalic. Neck: Supple, No carotid bruit, No jugular venous distention. Respiratory: Respirations are non-labored, Breath sounds are equal. Breath sounds: Bilateral, Diminished. Cardiovascular: Normal rate, Regular rhythm, No murmur, No gallop. Gastrointestinal: Soft, Non-tender, Non-distended, Normal bowel sounds. Musculoskeletal: No deformity. Integumentary: Warm, Dry, [place]. Neurologic: Alert, Oriented. Psychiatric: Cooperative. Review / Management JANUARY 17 10:45 138 105 C 124 / H 158 L 3.3 L 18 H 4.40 \ JANUARY 17 10:45 \ L 9.0 / H 18.1 292 / L 27.0 \ Cardiac Markers (Current Encounter/Past 24 Hours) ProBNP 1385 pg/mL OK 01/16/2021 18:53 Blood Gases (Current Encounter/Past 24 Hours) pH Art 7.44 01/17/2021 09:39 pCO2 Art 22.6 CRIT 01/17/2021 09:39 pO2 Art 118.0 OK 01/17/2021 09:39 HCO3 Art 15.4 LOW 01/17/2021 09:39 BE Art -7.4 LOW 01/17/2021 09:39 sO2 Art 98.8 01/17/2021 09:39 tHb Art 9.2 LOW 01/17/2021 09:39 FHHb <2.4 NA 01/17/2021 09:39 ctO2 12.8 NA 01/17/2021 09:39 Delivery Device Type Art Cannula NA 01/17/2021 09:39 Temperature, F Art 98.6 NA 01/17/2021 09:39 Art Blood Gas (ABG) Site Right Radial 01/17/2021 09:39 Acceptable Conrado's Test Art Acceptable NA 01/17/2021 09:39 Ventilator Mode Art N/A NA 01/17/2021 09:39 Oxygen Flow Rate Art 3.0 NA 01/17/2021 09:39 Comment Art supine NA 01/17/2021 09:39 ABG Num of Draw Attempts 1 NA 01/17/2021 09:39 Radiology Results (Last 48 hours) [id number] -- 01/16/2021 19:34 CR Chest 1 Vw Portable (01/16/2021 18:54) Result: PORTABLE CHEST 01/16/2021 5:42 PM HISTORY: Shortness of air.COMPARISON: None.FINDINGS: The heart is normal in size . The mediastinum isunremarkable . There is a left perihilar opacity. There is a small leftpleural effusion. There is no pneumothorax . The osseous structures areunremarkable . IMPRESSION: Opacity as above. Probably secondary to pneumonia. Follow-up to complete resolution recommended .Images reviewed, interpreted, and dictated by Dr. Odin Solitario.Transcribed by Deedee Mendoza PA-C.I have personally viewed, interpreted and dictated the examination. Ihave read and agree with the above final transcribed report. US Renal Comp (01/17/2021 09:35) Result: RENAL ULTRASOUNDHISTORY: Renal failure .PROCEDURE: Ultrasound images of the kidneys were obtained.FINDINGS: Limited images of the liver parenchyma demonstrate multiplegallstones. The right kidney measures 10 cm in length. It is normal echogenicity . There is no hydronephrosis . The left kidney measures 14 cm in length. It is normal echogenicity . There is mild hydronephrosis . IMPRESSION: Mild left hydronephrosis.Cholelithiasis.Images reviewed, interpreted, and dictated by Odin Solitario MD CT Abdomen Pelvis WO (01/17/2021 11:18) Result: CT SCAN OF THE ABDOMEN AND PELVIS WITHOUT CONTRAST 01/17/2021 10:26AM HISTORY: Left upper flank pain.COMPARISON: None.PROCEDURE: Axial images were obtained from the lung bases to the pubicsymphysis by computed tomography. This study was performed withtechniques to keep radiation doses as low as reasonably achievable,(ALARA). Individualized dose reduction techniques using automatedexposure control or adjustment of mA and/or kV according to the patientsize were employed.FINDINGS: ABDOMEN: There is a 5 mm nodule in the right lower lobe. There is a 30mm lesion near the dome of the liver, likely a cyst. Gallstones areidentified in the gallbladder. There is a 6 mm stone in the left kidney.The right kidney is unremarkable. There is mild left hydronephrosis.PELVIS: The appendix is normal. The urinary bladder is decompressed by aFoley. There is a 5 mm stone in the distal left ureter. There is a 3 mmstone more proximally within the distal left ureter. Post hysterectomy.The left ovary is prominent.IMPRESSION: Small right lung nodule. Six-month follow-up chest CTrecommended.Cholelithiasis.Mild left hydronephrosis from a 5 mm stone in the distal ureter. Thereis a more proximal nonobstructing 3 mm stone in the distal ureter.Images reviewed, interpreted, and dictated by Odin Solitario MD Results review: Labs (Last four charted values) WBC H 18.1 (JANUARY 17) H 20.7 (JANUARY 16) H 21.7 (JANUARY 16) HB L 9.0 (JANUARY 17) L 10.3 (JANUARY 16) 11.3 (JANUARY 16) HCT L 27.0 (JANUARY 17) L 31.5 (JANUARY 16) 35.6 (JANUARY 16) Plt 292 (JANUARY 17) 350 (JANUARY 16) H 389 (JANUARY 16) Na 138 (JANUARY 17) L 133 (JANUARY 16) L 126 (JANUARY 16) K L 3.3 (JANUARY 17) 5.0 (JANUARY 16) C 6.8 (JANUARY 16) Cl 105 (JANUARY 17) 107 (JANUARY 16) L 101 (JANUARY 16) CO2 L 18 (JANUARY 17) L 9 (JANUARY 16) L 8 (JANUARY 16) BUN C 124 (JANUARY 17) C 136 (JANUARY 16) C 139 (JANUARY 16) Cr H 4.40 (JANUARY 17) H 5.80 (JANUARY 16) H 6.50 (JANUARY 16) Glu R H 158 (JANUARY 17) H 110 (JANUARY 16) H 181 (JANUARY 16) Ca L 7.8 (JANUARY 17) 8.6 (JANUARY 16) 8.8 (JANUARY 16) Lactic C 2.5 (JANUARY 17) C 2.3 (JANUARY 17) C 2.6 (JANUARY 16) C 2.1 (JANUARY 16) AST 28 (JANUARY 16) ALT 23 (JANUARY 16) ALK P 128 (JANUARY 16) T Bili 0.5 (JANUARY 16) PTN H 9.3 (JANUARY 16) ALB L 2.1 (JANUARY 16) Troponin <0.015 (JANUARY 16) . 10/19/2020 Impression: Technically very limited study due to body habitus. Normal sized left ventricle. Mild left ventricular hypertrophy. Visually estimated ejection fraction 55% +/- 5%. Normal systolic function. No hemodynamically significant valvular heart disease. Measurements Summary: LVEDd: 3.81 cm LVESd: 2.31 cm IVSEd: 1.15 cm AO Root:2.59 cm LVPWd: 1.16 cm Impression and Plan IMPRESSION: Abnormal EKG SR with PAC's Acute renal failure Renal u/s shows mild left hydro, CT scan showing obstructive 6 mm stone. producing urine, no plans for dialysis per Nephrology Cellulitis bilateral lower extremities Hypertension uncontrolled PLAN; No indication for further cardiac testing at this time. Cardiology will sign off. documented in this encounter Plan of Treatment Not on file documented as of this encounter Visit Diagnoses Not on filedocumented in this encounter Care Teams Water Registrar Relationship Specialty Start Date End Date Yuan Mccracken MD [address] [place] [phone] PCP - General Family Medicine 09/23/22 documented as of this encounter
--- OUTSIDE RECORDS SUMMARY | 2025-02-15 10:08 | XMS_ITS | Encounter Summary ---
Author Organization [facility] In iatives Address [address] [place] [address] Care Team Providers Care Key Filer Name Role Phone Yuan Mccracken MD Primary Care Provider [phone] Encounter Details Date Type Department Care Team (Late st Contact Info) Description 01/21/2021 Transcribed Document [facility] [place] [address] [place] [address] ProviderPerry MD [address] [place], [place] [address] Social History Tobacco Use Types Packs/Day Years Used Date Smoking Tobacco: Never Assessed Comments Unknown Sex and Gender Information Value Date Recorded Sex Assigned at Not on file Legal Sex Female 12:32 PM CDT Gender Identity Not on file Sexual Orientation Not on file documented as of this encounter Miscellaneous Notes * Cerner Conversion Note - Perry Nunes MD - 01/21/2021 1:34 PM CDT Consult Phone Call Documentation Entered On: 01/21/2021 14:36 EDT Performed On: 01/21/2021 13:34 EDT by Sil Nuno General Office AssistantHealth Unit Coord Phone Call for Consults Consult Phone Call/Page Attempt : First call Consult Reason : worsening rle cellulitis Physician Requesting Consult : MAHSA RINALDI MD Physician Requested for Consult : JAGUAR REGALADO MD-INF Provider Service Notified Name : Infectious Disease Consult, Additional Information : consulted the office about consult. Sil Nuno General Office AssistantHealth Unit Coord - 01/21/2021 14:35 EDT documented in this encounter Plan of Treatment Not on file documented as of this encounter Visit Diagnoses Not on filedocumented in this encounter Care Teams Key Filer Relationship Specialty Start Date End Date Yuan Mccracken MD [address] [place] [address] PCP - General Family Medicine 09/23/22 documented as of this encounter
--- OUTSIDE RECORDS SUMMARY | 2025-02-15 10:08 | XMS_ITS | Encounter Summary ---
Author Organization [facility] [employer] Init iatives Address [address] [place] [address] Care Team Providers Care Director Of Preclinical Research Name Role Phone Yuan Mccracken MD Primary Care Provider [phone] Encounter Details Date Type Department Care Team (Late st Contact Info) Description 01/29/2021 Transcribed [place] [facility] [place] [address] [place] [address] ProviderPerry MD [address], [place] [address] Social History Tobacco Use Types Packs/Day Years Used Date Smoking Tobacco: Never Assessed Comments Unknown Sex and Gender Information Value Date Recorded Sex Assigned at Not on file Legal Sex Female 12:32 PM CDT Gender Identity Not on file Sexual Orientation Not on file documented as of this encounter Miscellaneous Notes * Cerner Conversion Note - Perry Nunes MD - 01/29/2021 2:00 AM CDT Lay Out Technician Details Entered On: 01/29/2021 5:58 EDT Performed On: 01/29/2021 2:00 EDT by PAYTON MONIQUE RN-PATIENT CARE BEDSIDE NON-EXEMPT Order Details Transport Mode Order Detail : Bed (including specialty) Isolation Precautions Order Detail : Containment Precautions Order Detail : 0 Lift/Transfer : Maximal assist Central Line Order Detail : No Room Service : Needs Assistance Arterial Line : No Patient Needs Meds Crushed/Liquid : No PAYTON MONIQUE RN-PATIENT CARE BEDSIDE NON-EXEMPT - 01/29/2021 5:58 EDT documented in this encounter Plan of Treatment Not on file documented as of this encounter Visit Diagnoses Not on filedocumented in this encounter Care Teams Director Of Preclinical Research Relationship Specialty Start Date End Date Yuan Mccracken MD [address] [place] [phone] PCP - General Family Medicine 09/23/22 documented as of this encounter
--- OUTSIDE RECORDS SUMMARY | 2025-02-15 10:08 | XMS_ITS | Encounter Summary ---
Author Organization [facility] [employer] Init iatives Address [address] [place] [address] Care Team Providers Care Casting Director Name Role Phone Yuan Mccracken MD Primary Care Provider Encounter Details Date Type Department Care Team (Late st Contact Info) Description 01/17/2021 Transcribed Document [facility] [place] [address] [place] [address] ProviderPerry MD [address] [place] [address] Social History Tobacco Use Types Packs/Day Years Used Date Smoking Tobacco: Never Assessed Comments Unknown Sex and Gender Information Value Date Recorded Sex Assigned at Not on file Legal Sex Female 12:32 PM CDT Gender Identity Not on file Sexual Orientation Not on file documented as of this encounter Miscellaneous Notes * Cerner Conversion Note - Perry ProviderMD - 01/17/2021 2:08 PM CDT Attempt to Treat, PT Entered On: 01/17/2021 14:45 EDT Performed On: 01/17/2021 14:08 EDT by FRANCISCO MACEDO PT Attempt to Treat Unable to Treat Due To : Patient on hold Inability to Treat Comment : pt having respiratory issues and nsg agreed to hold PTx eval at this time. will plan to f/u tomorrow. FRANCISCO MACEDO, PT - 01/17/2021 14:44 EDT Electronically signed by Carlotta [facility] [place] [facility] Conversion Oracle Forms Developer Cerner at 12/07/2022 6:11 PM CDT documented in this encounter Plan of Treatment Not on file documented as of this encounter Visit Diagnoses Not on filedocumented in this encounter Care Teams Casting Director Relationship Specialty Start Date End Date Yuan Mccracken MD [address] [place] [phone] PCP - General Family Medicine 09/23/22 documented as of this encounter
--- OUTSIDE RECORDS SUMMARY | 2025-02-15 10:08 | XMS_ITS | Encounter Summary ---
Author Organization [facility] Init iatives Address [address] [place] [address] Care Team Providers Care Huc Name Role Phone Yuan Mccracken MD Primary Care Provider [phone] Encounter Details Date Type Department Care Team (Late st Contact Info) Description 01/28/2021 Transcribed Document [facility] [address] [place] [address] ProviderPerry MD [address] [place] [address] Social History Tobacco Use Types Packs/Day Years Used Date Smoking Tobacco: Never Assessed Comments Unknown Sex and Gender Information Value Date Recorded Sex Assigned at Not on file Legal Sex Female 12:32 PM CDT Gender Identity Not on file Sexual Orientation Not on file documented as of this encounter Miscellaneous Notes * Cerner Conversion Note - Perry Nunes MD - 01/28/2021 2:57 PM CDT On Going Discharge Planning Entered On: 01/28/2021 15:01 EDT Performed On: 01/28/2021 14:57 EDT by Maryjane Gonzalez V, Crane Mechanic Open Die Inspector Care Management Progress Note Discharge Arrangements : Patient Post-Acute Information Patient Name: CHANI VELASQUEZ Gender: Female : [birth year] Age: 60 Years No Post-Acute Placement(s) Listed No Post-Acute Service(s) Listed No [place] Referral(s) Listed Discharge Options Discussed with Patient : Acute rehabilitation, Home Health, [facility] Barriers to Discharge Identified : Clinical Condition of Patient Barriers to Discharge Unresolved : Clinical Condition of Patient Referral Indicators For Complex SWK Interventions : Difficult placement issues/lengthy hospital stay Is the Patient Meeting Medical Necessity : Yes Physician Agreeable to Move Forward with D/C Plan? : Yes Did you Attend Multidisciplinary Rounds? : Yes Maryjane Gonzalez Social Worker Open Die Inspector - 01/28/2021 14:57 EDT Narrative Progress Note Narrative Progress Note : HD#11, elos-4, RRS-Moderate, Boost-3 ID following and stopped IV Vanc and Zosyn. po doxy continued. Nephrology following. leg wounds improving with mist therapy with PT. CM sent updated clinical/therapy updates [facility] palcement. Lack of insurance is a HUGE placement barrier. No current bed offers. CM to follow Historical Progress Note : HD#10, elos-4, RRS-Moderate, Boost-3 ID following. IV Vanc and Zosyn and po doxy. Per nephrology, renal function stable. Wound care and mist therapy with PT. CM sent updated clinical/therapy updates to all [facility] and [place] facilities. Lack of insurance is a huge placement barrier. CM called [facility]. Left message for admit coordinator. Patient's is a resident at [facility]. CM hopes that they will accept patient as well with pending Medicaid. CM to follow Maryjane Gonzalez Social Worker Open Die Inspector - 01/27/21 14:23:52 HD#6, elos-4, RRS-Moderate, Boost-3 ID following. IV Vanc and Zosyn and po doxy. Per nephrology, renal function stable. PT/OT working with pt and providing wound care. Rehab placement initated last week. CM sent updated clinical and therapy updates. Pt still pending Medicaid. Lack of insurance is a placement barrier. CM will continue to follow pt's progress and insurance status. Maryjane Gonzalez Social Worker Open Die Inspector - 01/26/21 13:44:57 HD#6, ELOS-not recorded, RRS-Moderate, Boost-3 ID following and recommending culture right leg wound and possible vascular consult. On IV Vanc and Zosyn. 3L /.,wound care. PT/OT recommending rehab. Referrals sent via [facility] to [facility] and SNF. Patient pending Medicaid. Placement susanna be difficult due to no insurance. is a resident at [facility]. Referral sent there too. CM to follow -- Maryjane Gonzalez V Crane Mechanic Open Die Inspector - 01/23/21 12:17:40 HD#5, ELOS-not recorded, RRS-Moderate, Boost-3 Patient on 2L . IV Abx-Vanc and Zosyn. Wound care by PT. PT/OT recommending rehab. CM sent referrals via [facility]. Patient's is a resident at [facility]. Patient is self pay and has no health or presription coverage. Placement may be difficult due to pending Medicaid status. CM to follow patient's progess and SNF placement options. Maryjane Gonzalez V Crane Mechanic Open Die Inspector - 01/22/21 13:50:41 Maryjane Gonzalez V Crane Mechanic [facility] [place]/28/[place]21 14:57 EDT documented in this encounter Plan of Treatment Not on file documented as of this encounter Visit Diagnoses Not on filedocumented in this encounter Care Teams Huc Relationship Specialty Start Date End Date Yuan Mccracken MD [address] [place] [phone] PCP - General Family Medicine 09/23/22 documented as of this encounter
--- OUTSIDE RECORDS SUMMARY | 2025-02-15 10:08 | XMS_ITS | Encounter Summary ---
Author Organization [facility] Init iatives Address [address] [place] [address] Care Team Providers Care Dietician Name Role Phone Yuan Mccracken MD Primary Care Provider [phone] Encounter Details Date Type Department Care Team (Late st Contact Info) Description 01/29/2021 Transcribed Document [facility] [place] [address] [place] [address] ProviderPerry MD [address] [place], [place] [address] Social History Tobacco Use Types Packs/Day Years Used Date Smoking Tobacco: Never Assessed Comments Unknown Sex and Gender Information Value Date Recorded Sex Assigned at Not on file Legal Sex Female 12:32 PM CDT Gender Identity Not on file Sexual Orientation Not on file documented as of this encounter Miscellaneous Notes * Cerner Conversion Note - Perry Nunes MD - 01/29/2021 2:06 PM CDT UM Authorization Entered On: 01/29/2021 14:09 EDT Performed On: 01/29/2021 14:06 EDT by CARMEN MARLOW RN Primary Insurance Authorization Authorization and Policy Numbers : Insurance 1 Health Plan: MEDICAID PENDING Policy Number: [id number] Authorization Number: Insurance Primary Name : [employer] [facility] Authorization Status-Primary : Awaiting callback Reference Number-Primary : Pend ref # [id number]. Authorized Service Begin Date-Primary : 01/16/2021 EDT Authorization Comments-Primary : CM gave a medicaid ID no. Per [place] pt has [employer]. Notified [facility] clinicals submitted via [facility] portal and faxed via [employer] from 01/16 to 01/29 for Ip approval Historical Authorization Comments-Primary : Comment 1: MEDICAID PENDING (FABIAN DWIGHT D, RN-Utilization Review 01/28/2021 08:04) Comment 2: MEDICAID PENDING (FABIAN DWIGHT D, RN-Utilization Review 01/27/2021 08:41) Comment 3: MEDICAID PENDING (FABIAN DWIGHT D, RN-Utilization Review 01/26/2021 08:45) Comment 4: MEDICAID PENDING (PERALTA, DWIGHT D, RN-Utilization Review 01/23/2021 09:42) Comment 5: SELF PAY (FABIAN DWIGHT D, RN-Utilization Review 01/22/2021 08:29) Comment 6: SELF PAY (FABIAN DWIGHT D, RN-Utilization Review 01/21/2021 08:19) Comment 7: Self pay at the time of review (CARMEN MARLOW RN 01/20/2021 13:51) CARMEN MARLOW RN - 01/29/2021 14:06 EDT documented in this encounter Plan of Treatment Not on file documented as of this encounter Visit Diagnoses Not on filedocumented in this encounter Care Teams Dietician Relationship Specialty Start Date End Date Yuan Mccracken MD [address] [place] [phone] PCP - General Family Medicine 09/23/22 documented as of this encounter
--- OUTSIDE RECORDS SUMMARY | 2025-02-15 10:08 | XMS_ITS | Encounter Summary ---
Author Organization [facility] Init iatives Address [address] [place] [address] Care Team Providers Care Ski Lift Mechanic Name Role Phone Yuan Mccracken MD Primary Care Provider [phone] Encounter Details Date Type Department Care Team (Late st Contact Info) Description 01/17/2021 Transcribed Document [facility] [place] [address] [place] [address] ProviderPerry MD [address] [id number] Social History Tobacco Use Types Packs/Day Years Used Date Smoking Tobacco: Never Assessed Comments Unknown Sex and Gender Information Value Date Recorded Sex Assigned at Not on file Legal Sex Female 12:32 PM CDT Gender Identity Not on file Sexual Orientation Not on file documented as of this encounter Miscellaneous Notes * Cerner Conversion Note - Perry Nunse MD - 01/17/2021 12:36 PM CDT Patient: CHANI VELASQUEZ Age: 60 years Sex: Female : 1960 Associated Diagnoses: None Author: MEG CARRASCO MD-NEP Subjective Feeling a little better today. Objective VS/Measurements Vitals Signs (last 24 hrs) Last Charted Minimum Maximum Temp 98.7 (JANUARY 17 04:00) 97.7 (JANUARY 16 20:38) 98.7 (JANUARY 16 17:33) Mon HR 84 (JANUARY 17 06:00) 83 (JANUARY 17 05:30) 114 (JANUARY 16 20:45) Periph HR 122 (JANUARY 16 17:33) 122 (JANUARY 16 17:33) 122 (JANUARY 16 17:33) Resp Rate H 47 (JANUARY 17 06:00) H 31 (JANUARY 16 21:45) H 75 (JANUARY 17 00:00) SBP H 156 (JANUARY 17 06:00) 127 (JANUARY 16 20:45) H 177 (JANUARY 16 23:00) DBP 72 (JANUARY 17 06:00) 65 (JANUARY 16 17:33) H 95 (JANUARY 16 21:15) MAP 103 (JANUARY 17 06:00) 92 (JANUARY 17 00:30) 115 (JANUARY 17 02:30) SpO2 100 (JANUARY 17 06:00) L 57 (JANUARY 17 02:45) 100 (JANUARY 16 22:00) Intake & Output Totals Last 24 Hours (7a-7a) Intake (28 Events) Continuous Infusions (1696.6666 mL) Medications (1274.1 mL) Output (6 Events) Coulter Catheter (1200 mL) Input Total: 2970.7666 mL Output Total: 1200 mL Balance: 1770.7666 mL Physical exam contact may be limited to avoid COVID-19 exposure General: No acute distress, Elderly WF. Eye: Extraocular movements are intact, Normal conjunctiva. HENT: Normocephalic, OMM dry. Neck: Supple, No jugular venous distention. Respiratory: Respirations are non-labored, Symmetrical chest wall expansion. Cardiovascular: Normal rate, + Edema. Gastrointestinal: Soft, Obese. Genitourinary: + Coulter no palpable bladder.. Integumentary: Warm, Bilateral lower extremities with excoriation and skin sloughing consistent with cellulitis. Patient with erythema bilateral lower extremity up to the knees with extension medially up into the thigh area on the right.. Neurologic: Alert, Oriented. Psychiatric: Cooperative, Appropriate mood & affect. Results Review Labs (Last four charted values) WBC H [...] (JANUARY 16) 8.8 (JANUARY 16) Lactic C 2.3 (JANUARY 17) C 2.6 (JANUARY 16) C 2.1 (JANUARY 16) AST 28 (JANUARY 16) ALT 23 (JANUARY 16) ALK P 128 (JANUARY 16) T Bili 0.5 (JANUARY 16) PTN H 9.3 (JANUARY 16) ALB L 2.1 (JANUARY 16) Troponin <0.015 (JANUARY 16) Impression and Plan ARF: BUN/creatinine improving with good urine output. Initially creatinine 6.5 on presentation cellulitis. Baseline creatinine unknown. Renal ultrasound shows mild left hydro with CT scan showing obstructive 6 mm stone. Patient improving with fluids and supportive care. For now continue to monitor for further renal recovery. No dialysis at this time. Left ureteral obstruction: Mild hydronephrosis seen. May need urology to evaluate. HTN: Blood pressure stable but elevated. Monitor for now. Metabolic acidosis: Due to renal failure. Improving with bicarb drip. Hypokalemia: Potassium was elevated 6.8, now down to 3.3 with correction of acidosis on bicarb drip improving renal function. Will give placement potassium and monitor closely. Check magnesium level, keep greater than 2.0 Hyperphosphatemia: Due to renal failure. Monitor for improvement with renal recovery. Volume: Stable for now. Cellulitis: On antibiotics. High risk and complexity patient documented in this encounter Plan of Treatment Not on file documented as of this encounter Visit Diagnoses Not on filedocumented in this encounter Care Teams Ski Lift Mechanic Relationship Specialty Start Date End Date Yuan Mccracken MD [address] [place] [phone] PCP - General Family Medicine 09/23/22 documented as of this encounter
--- OUTSIDE RECORDS SUMMARY | 2025-02-15 10:08 | XMS_ITS | Encounter Summary ---
Author Organization [facility] Init iatives Address [address] [place] [address] Care Team Providers Care Disc Pad Knockout Worker Name Role Phone Yuan Mccracken MD Primary Care Provider [phone] Encounter Details Date Type Department Care Team (Late st Contact Info) Description 01/29/2021 Transcribed Document [facility] [place] [address] [place] [address] ProviderPerry MD [address], [place] [id number] Social History Tobacco Use Types Packs/Day Years Used Date Smoking Tobacco: Never Assessed Comments Unknown Sex and Gender Information Value Date Recorded Sex Assigned at Not on file Legal Sex Female 12:32 PM CDT Gender Identity Not on file Sexual Orientation Not on file documented as of this encounter Miscellaneous Notes * Cerner Conversion Note - Perry Nunes MD - 01/29/2021 5:00 PM CDT Chart Check - Review Order Profile Entered On: 01/29/2021 18:37 EDT Performed On: 01/29/2021 17:00 EDT by Hong Jauregui, RN Chart Check Powerplans Initiated/Discontinued as Appropriate : Yes All Active Orders Reviewed : Yes Hong Jauregui RN - 01/29/2021 18:37 EDT documented in this encounter Plan of Treatment Not on file documented as of this encounter Visit Diagnoses Not on filedocumented in this encounter Care Teams Disc Pad Knockout Worker Relationship Specialty Start Date End Date Yuan Mccracken MD [address] [place] [phone] PCP - General Family Medicine 09/23/22 documented as of this encounter
--- OUTSIDE RECORDS SUMMARY | 2025-02-15 10:08 | XMS_ITS | Encounter Summary ---
Author Organization [facility] Init iatives Address [address] [place] [address] Care Team Providers Care Cobbler Mckay Name Role Phone Yuan Mccracken MD Primary Care Provider [phone] Encounter Details Date Type Department Care Team (Late st Contact Info) Description 01/21/2021 Transcribed Document [facility] [place] Medicine [address] [place] [address] ProviderPerry MD [address], [place] [address] Social History Tobacco Use Types Packs/Day Years Used Date Smoking Tobacco: Never Assessed Comments Unknown Sex and Gender Information Value Date Recorded Sex Assigned at Not on file Legal Sex Female 12:32 PM CDT Gender Identity Not on file Sexual Orientation Not on file documented as of this encounter Miscellaneous Notes * Cerner Conversion Note - Perry Nunes MD - 01/21/2021 8:19 AM CDT UM Authorization Entered On: 01/21/2021 8:19 EDT Performed On: 01/21/2021 8:19 EDT by DWIGHT PERALTA RN-Utilization Review Primary Insurance Authorization Authorization and Policy Numbers : Insurance 1 Health Plan: SELF PAY Policy Number: Authorization Number: Insurance Primary Name : Self-pay Authorized Service Begin Date-Primary : 01/16/2021 EDT Authorization Comments-Primary : SELF PAY Historical Authorization Comments-Primary : Comment 1: Self pay at the time of review (CARMEN MARLOW RN 01/20/2021 13:51) DWIGHT PERALTA RN-Utilization Review - 01/21/2021 8:19 EDT documented in this encounter Plan of Treatment Not on file documented as of this encounter Visit Diagnoses Not on filedocumented in this encounter Care Teams Cobbler Mckay Relationship Specialty Start Date End Date uYan Mccracken MD [address] [place] [phone] PCP - General Family Medicine 09/23/22 documented as of this encounter
--- OUTSIDE RECORDS SUMMARY | 2025-02-15 10:08 | XMS_ITS | Encounter Summary ---
Author Organization [facility] Init iatives Address [address] [place] [address] Care Team Providers Care Quality Engineering Manager Name Role Phone Yuan Mccracken MD Primary Care Provider [phone] Encounter Details Date Type Department Care Team (Late st Contact Info) Description 01/21/2021 Transcribed Document [facility] [place] [address] [place] [address] ProviderPerry MD [address], [place] [address] Social History Tobacco Use Types Packs/Day Years Used Date Smoking Tobacco: Never Assessed Comments Unknown Sex and Gender Information Value Date Recorded Sex Assigned at Not on file Legal Sex Female 12:32 PM CDT Gender Identity Not on file Sexual Orientation Not on file documented as of this encounter Miscellaneous Notes * Cerner Conversion Note - Perry Nunes MD - 01/21/2021 8:18 AM CDT UM Authorization Entered On: 01/21/2021 8:18 EDT Performed On: 01/21/2021 8:18 EDT by DWIGHT PERALTA RN-Utilization Review Primary Insurance Authorization Authorization and Policy Numbers : Insurance 1 Health Plan: SELF PAY Policy Number: Authorization Number: Insurance Primary Name : Self-pay Authorized Service Begin Date-Primary : 01/16/2021 EDT Historical Authorization Comments-Primary : Comment 1: Self pay at the time of review (CARMEN MARLOW RN 01/20/2021 13:51) DWIGHT PERALTA, STEPHEN-Utilization Review - 01/21/2021 8:18 EDT Electronically signed by Carlotta, [facility] Conversion Restaurant Host/Hostess Cerner at 12/07/2022 6:06 PM CDT documented in this encounter Plan of Treatment Not on file documented as of this encounter Visit Diagnoses Not on filedocumented in this encounter Care Teams Quality Engineering Manager Relationship Specialty Start Date End Date Yuan Mccracken MD [address] [place] [phone] PCP - General Family Medicine 09/23/22 documented as of this encounter
--- OUTSIDE RECORDS SUMMARY | 2025-02-15 10:08 | XMS_ITS | Encounter Summary ---
Author Organization [facility] [employer] Address [address] [place] [address] Care Team Providers Care Purchasing/Receiving Name Role Phone Yuan Mccracken MD Primary Care Provider [phone] Encounter Details Date Type Department Care Team (Late st Contact Info) Description 01/22/2021 Transcribed Document [facility] [address] [place] [address] ProviderPerry MD [address], [place] [address] Social History Tobacco Use Types Packs/Day Years Used Date Smoking Tobacco: Never Assessed Comments Unknown Sex and Gender Information Value Date Recorded Sex Assigned at Not on file Legal Sex Female 12:32 PM CDT Gender Identity Not on file Sexual Orientation Not on file documented as of this encounter Miscellaneous Notes * Cerner Conversion Note - Perry Nunes MD - 01/22/2021 1:59 PM CDT Patient: CHANI VELASQUEZ Age: 60 Years Sex: Female : 1960 Subjective seen/evaluated today; She is resting, c/o some pain RLE no worse than yesterday. We discussed her need to assistance with walking and likely need for rehab at time of discharge, began discussion with CM, pt agreeable to rehab. No CP, no more dyspnea than is normal for her, no abd pain, vomiting. will remove og today Vital Signs T: 36.8 ??C TMIN: 36.6 ??C TMAX: 36.9 ??C HR: 67(Monitored) RR: 24 BP: 124/77 SpO2: 97% HT: 162.56 cm WT: 122.95 kg BMI: 46.53 Oxygen Settings (Last) Oxygen Therapy Mode: Nasal cannula (01/22/21 09:14:00) Oxygen Flow Rate: 2 Liter/Min (01/22/21 09:14:00) Intake & Output Totals Last 24 Hours (7a-7a) Input Total: 1945.8 mL Output Total: 1640 mL Balance: 305.8 mL Physical Exam General: Alert and oriented, No acute distress, appears chronically ill and older than stated age. Eye: Normal conjunctiva. HENT: Normocephalic, Oral mucosa is moist. Neck: Supple, Non-tender. Respiratory: Respirations are non-labored but mildly increased RR as has been whole hospitalization, decreased bs at bases. Cardiovascular: Normal rate, No murmur. Gastrointestinal: Soft, Non-tender. Musculoskeletal: No deformity. Integumentary: improved redness compared to yesterday RLE: severe bilateral lymphedema with thickened skin, discoloration and cobblestoning , the right leg has a very large ulceration with a fetid odor on the posterior aspect. Assessment/Plan New onset Atrial Fibrillation with RVR occured overnight, on cardizem drip per night doc, rate mostly controlled still in Afib, reconsult cardiology -magnesium 1.5 should be >2, Mag IV was given overnight; monitor CARD: increased BB dose, stop heparin start eliquis, weaned off cardizem, arrange OP cards f/u -stable on oral metoprolol, eliquis Life Threatening Hyperkalemia IV insulin, IV dextrose, IV calcium gluconate Nephrology consult recheck in am -improved morning recheck 5.0 then 3.3-nephrology aware replenished -resolved continuing to monitor NEPH following -resolved #Severe metabolic acidosis Received IV Sodium bicarbonate n ER Bicarbonate drip monitor -ABG repeated this morning improving, Ph 7.4 -resolved PULM following -resolved #Acute renal failure order urine electrolytes, renal [...] to monitor -creat 1.4 NEPH still following -creat 1.3 neph still following and treating low K Hypokalemia developed as creat improving, replacing as [...] plan to remove stone per urology, asymptomatic -pt now on floor, remove og #Lower ext cellulitis IV Rocephin -R>L US to eval for DVT -slight improvement in LE swelling and redness today -dressings with meta honey; US NEG for DVT -low grade temp overnight 100.6; discussed with Brad will stop rocephin and start zosyn; WBC at admission 20, now 14 -worsening RLE cellulitis, WBC increased again to 20, ID consulted per ID: culture right leg wound -consider changing to merrem AFTER the culture has been sent -- arterial dopplers -- PT consult for mist therapy to right leg, OTTO ordered-- consider vascular consult -RLE redness improved today after initiation of vanco yesterday ? Mobitz type 1 on EKG--PAC/PVC -cards [...] up #obesity Complicate clinical aspect of care DVT Prophylaxis Heparin Full code Time spent 40 min VTE Prophylaxis - Medical Apixaban 5 mg, Oral, Tab, [id number], Routine, Start 01/21/21 10:00:00 EDT, 01/21/21 9:43:00 [...] PRN Eliquis, 5 mg= 1 Tab, Oral, [id number] Lac-Hydrin 12% topical lotion, 1 Application, Topical, BID Lasix, 20 mg= 1 Tab, Oral, Daily magnesium sulfate, 2 Gram= 50 mL, IV Piggyback, Daily, PRN magnesium sulfate, 2 Gram= 50 mL, IV Piggyback, Q2H, PRN metoprolol tartrate, 50 mg= 1 Tab, Oral, BID MiraLax, 17 Gram= 1 Packet, Oral, Daily, PRN Mucinex, 600 mg= 1 Tab, Oral, BID, PRN nystatin, [id number] Units= 5 mL, Swish and Swallow , [...] Test Name Test Result Date/Time Sodium Level 136 mmol/L 01/22/2021 06:25 EDT Potassium Level 3.7 mmol/L 01/22/2021 06:25 EDT Chloride Level 105 mmol/L 01/22/2021 06:25 EDT Carbon Dioxide Level 27 mmol/L 01/22/2021 06:25 EDT Anion Gap 8 (Low) 01/22/2021 06:25 EDT Glucose Level 121 mg/dL (High) 01/22/2021 06:25 EDT Blood Urea Nitrogen 32 mg/dL (High) 01/22/2021 06:25 EDT Creatinine Level 1.30 mg/dL (High) 01/22/2021 06:25 EDT eGFR 50 mL/min/1.73m2 (Low) 01/22/2021 06:25 EDT eGFR NonAfrican 42 mL/min/1.73m2 (Low) 01/22/2021 06:25 EDT Bun/Creatinine 24.6 (High) 01/22/2021 06:25 EDT Calcium Level 7.9 mg/dL (Low) 01/22/2021 06:25 EDT WBC 16.9 K/uL (High) 01/22/2021 06:25 EDT RBC 3.32 Million/uL (Low) 01/22/2021 06:25 EDT Hgb 8.8 g/dL (Low) 01/22/2021 06:25 EDT Hct 29.9 % (Low) 01/22/2021 06:25 EDT MCV 90.1 fL 01/22/2021 06:25 EDT MCH 26.5 pg 01/22/2021 06:25 EDT MCHC 29.4 Gram/dL (Low) 01/22/2021 06:25 EDT Platelet Count 341 K/uL 01/22/2021 06:25 EDT MPV 10.1 fL 01/22/2021 06:25 EDT RDW 17.2 % (High) 01/22/2021 06:25 EDT Neutrophil Percent Man 79 % (High) 01/22/2021 06:25 EDT Band Percent Man 2 % (Low) 01/22/2021 06:25 EDT ANC # 14 K/uL 01/22/2021 06:25 EDT Lymph Percent Man 13 % (Low) 01/22/2021 06:25 EDT ALYC # 2 K/uL 01/22/2021 06:25 EDT [place] Percent Man 2 % (Low) 01/22/2021 06:25 EDT Eos Percent Man 2 % 01/22/2021 06:25 EDT Myelo Percent Man 2 % (High) 01/22/2021 06:25 EDT RBC Morphology Abnormal 01/22/2021 06:25 EDT Anisocytosis 1+ (Abnormal) 01/22/2021 06:25 EDT Poikilocytosis 1+ (Abnormal) 01/22/2021 06:25 EDT Hypochromia 1+ (Abnormal) 01/22/2021 06:[address] Estimate Adequate 01/22/2021 06:25 EDT Slide Review Add Diff 01/22/2021 06:25 EDT Electronically signed by Carlotta, [facility] Conversion Tear Down Matcher Cerner at 12/07/2022 6:23 PM CDT documented in this encounter Plan of Treatment Not on file documented as of this encounter Visit Diagnoses Not on filedocumented in this encounter Care Teams Purchasing/Receiving Relationship Specialty Start Date End Date Yuan Mccracken MD [address] [place] [phone] PCP - General Family Medicine 09/23/22 documented as of this encounter
--- OUTSIDE RECORDS SUMMARY | 2025-02-15 10:08 | XMS_ITS | Encounter Summary ---
Author Organization [facility] [employer] Address [address] [place] [address] Care Team Providers Care Solutions Operator Name Role Phone Yuan Mccracken MD Primary Care Provider [phone] Encounter Details Date Type Department Care Team (Late st Contact Info) Description 01/21/2021 Transcribed Document [facility] Cardiology [address] [place] [phone] [place] [address] [place] [address] [address] [place] [address] Social History Tobacco Use Types Packs/Day Years Used Date Smoking Tobacco: Never Assessed Comments Unknown Sex and Gender Information Value Date Recorded Sex Assigned at Not on file Legal Sex Female 12:32 PM CDT Gender Identity Not on file Sexual Orientation Not on file documented as of this encounter Miscellaneous Notes * [employer]ner Conversion Note - Grupo Smith MD - 01/21/2021 7:35 AM EDT Patient: CHANI VELASQUEZ Age: 60 years Sex: Female : 1960 Associated Diagnoses: None Author: GRUPO SMITH MD-CAR BASIC Primary [employer] Crm Developer: None Subjective Reconsulted; new onset a-fib. Started on Cardizem gtt last night. Health Status Current medications: No qualifying data available , Medications (24) Active Scheduled: (7) ammonium lact 12% lot 225 g 1 Application, Topical, BID doxycycline hyclate 100 mg cap 100 mg 1 Cap, Oral, Q12H famotidine 20 mg tab 20 mg 1 Tab, Oral, Daily metoprolol tartrate 25 mg tab 12.5 mg 0.5 Tab, Oral, TID nySTATin 100,000 unit/mL susp 5 mL 500,000 Units 5 mL, Swish and Swallow, QID piperacillin-tazobactam + NaCl 0.9% 100 mL 3.375 Gram, IV Piggyback, Q6HInt potassium bicarb efferves 20 mEq dis tab 40 mEq 2 Tab, Oral, BID Continuous: (2) diltiazem 100 mg + Premix Diluent NaCl 0.9% TITRATE 100 mL 100 mL, IntraVENous heparin/NaCl 0.45% 25,000 Units + Premix Diluent NaCl 0.45% 250 mL 250 mL, IntraVENous PRN: (15) acetaminophen 325 mg [...] Problem list: Active Problems (1) Obesity Objective Intake and Output 24 hour intake: Total 1,480 ml 24 hour output: Total 1,980 ml VS/Measurements Vitals Signs (last 24 hrs) Last Charted Minimum Maximum Temp 98.7 (JAN 21 00:00) 98.7 (JAN 21 00:00) 99.1 (JAN 20 08:00) Apical HR 100 (JAN 20 20:22) 100 (JAN 20 20:22) H 106 (JAN 20 11:20) Mon HR 74 (JAN 21 06:00) 74 (JAN 20 22:00) 124 (JAN 20 11:00) Resp Rate H 27 (JAN 21 06:00) L 3 (JAN 20 11:00) H 51 (JAN 21 02:00) SBP 134 (JAN 21 06:00) 112 (JAN 20 18:00) H 149 (JAN 21 00:00) DBP 73 (JAN 21 06:00) L 57 (JAN 20 08:00) 84 (JAN 21 00:00) MAP 98 (JAN 21 06:00) 80 (JAN 20 08:00) 109 (JAN 21 00:00) SpO2 97 (JAN 21 06:00) L 91 (JAN 20 09:00) 98 (JAN 20 12:00) General: Alert and oriented, No acute distress. [...] Appropriate mood & affect. Results Review JAN 21 03:04 137 103 H 34 / H 111 L 3.2 29 H 1.40 \ JAN 21 03:04 \ L 8.7 / H 20.0 322 / L 28.2 \ Cardiac Markers (Current Encounter/Past 24 Hours) No Cardiac Marker Results Found (Past 24 Hours) No Radiology Results Found ECHO 01/17/2021 Impression: Technically very limited study due to body habitus. Normal sized left ventricle. Mild left ventricular hypertrophy. Visually estimated ejection fraction 55% +/- 5%. Normal systolic function. No hemodynamically significant valvular heart disease. Measurements Summary: LVEDd: 3.81 cm LVESd: 2.31 cm IVSEd: 1.15 cm AO Root:2.59 cm LVPWd: 1.16 cm Impression and Plan IMPRESSION: Back in SR. A-fib with RVR; new onset this admission. Abnormal EKG SR with PAC's Acute renal failure; improved Cr 6.5 (POA) -> 1.6 today K+ 6.8 (POA) -> 3.1 today Renal u/s shows mild left hydro, CT scan showing obstructive 6 mm stone. producing urine, no plans for dialysis per Nephrology Cellulitis bilateral lower extremities Hypertension uncontrolled PLAN; 01/21/2021 increase BB dose. Change heparin to OAC. Arrange for op Card f/u. 01/20/2021 EKG now Add metoprolol Replace electrolytes Wean cardizem off for HR <110 In no spontaneous return to NSR will consider DCCV Heparin Gtt for now. DC sub q. Decision for watermaster OAC pending clinical course 01/17/2021 No indication for further cardiac testing at this time. Cardiology will sign off. documented in this encounter Plan of Treatment Not on file documented as of this encounter Visit Diagnoses Not on filedocumented in this encounter Care Teams Solutions Operator Relationship Specialty Start Date End Date Yuan Mccracken MD [address] [place] [phone] PCP - General Family Medicine 09/23/22 documented as of this encounter
--- OUTSIDE RECORDS SUMMARY | 2025-02-15 10:08 | XMS_ITS | Encounter Summary ---
Author Organization [facility] In iatives Address [address] [place] [address] Care Team Providers Care Surgical Scheduler Name Role Phone Yuan Mccracken MD Primary Care Provider [phone] Encounter Details Date Type Department Care Team (Late st Contact Info) Description 01/17/2021 Transcribed Document [facility] [address] [place] [address] Tyler Recio MD [address] [facility] [address] [place] [id number] Social History Tobacco Use Types Packs/Day Years Used Date Smoking Tobacco: Never Assessed Comments Unknown Sex and Gender Information Value Date Recorded Sex Assigned at Not on file Legal Sex Female 12:32 PM CDT Gender Identity Not on file Sexual Orientation Not on file documented as of this encounter Miscellaneous Notes * Cerner Conversion Note - Tyler Recio MD - 01/17/2021 12:13 PM EDT Patient: CHANI VELASQUEZ Age: 60 Years Sex: Female : 1960 Subjective Ms Ron is feeling better compared to yesterday, no acute distress. States she feels a little short of air, no CP. Pain BLE right more than left. She is aware she has not been taking good care of herself, recently put in snf. She is unsure of how she has been taking her meds at home. Denies palpitations, dizziness, NVD, abd pain, dysuria. Vital Signs T: 37.1 ??C T: 37.1 ??C TMIN: 36.5 ??C TMAX: 37.1 ??C HR: 84(Monitored) RR: 47 BP: 156/72 SpO2: 100% HT: 162.56 cm WT: 117.2 kg BMI: 44.4 Oxygen Settings (Last) Oxygen Therapy Mode: Venti-Mask (01/17/21 04:00:00) Oxygen Flow Rate: 4 Liter/Min (01/16/21 20:38:00) Intake & Output Totals Last 24 Hours (7a-7a) Input Total: 2970.7666 mL Output Total: 1200 mL Balance: 1770.7666 mL Physical Exam General:[Alert and oriented no distress, obese unkempt]. Neurologic: Awake, alert, and oriented X3, CN II-XII intact]. Eye: anicteric HENT: Normocephalic dentures ill-fitting; tongue red slightly swollen, some oropharyngeal white plaques Neck: Supple Lungs: Clear to auscultation and percussion, non-labored respiration]. Heart: Normal rate irreg rhythm; no murmur Abdomen: Soft, non-tender, non-distended, normal bowel sounds, Musculoskeletal: [Normal range of motion symmetrical strength Skin: skin BLE red R>L, RLE warmth; scales Psychiatric: Cooperative, appropriate mood and affect Assessment/Plan #Life threatening hyperkalemia IV insulin, IV dextrose, IV calcium gluconate Nephrology consult recheck in am -improved morning recheck 5.0 then 3.3-nephrology aware replenished #Severe metabolic acidosis Received IV Sodium bicarbonate n ER Bicarbonate drip monitor -ABG repeated this morning improving, Ph 7.4 #Acute renal failure order urine electrolytes, renal US IVF, monitor, nephrology consult -renal US showed mild left hydro CT scan added: Mild left hydronephrosis from a 5 mm stone in the distal ureter. There is a more proximal nonobstructing 3 mm stone in the distal ureter. -improving with IV fluids- nephrology following Mobitz type 1 on EKG -cards consult #Lower ext cellulitis IV Rocephin -R>L US to eval for DVT #Dyspnea chest X ray and Echo breathing treatment as needed CXR: Opacity as above. Probably secondary to pneumonia; added doxy and incentive spirometry Right lung nodule on CT scan repeat CT scan six months per RAD to be done via primary care Cholelithiasis per CT scan asymptomatic, primary care follow up #obesity Complicate clinical aspect of care DVT Prophylaxis Heparin Full code Time spent 40 minutes VTE Prophylaxis - Medical Heparin 5,000 Units, SubCutaneous, Inj, Q8H, Routine, Start 01/17/21 8:10:00 EDT, 01/17/21 8:10:00 EDT (PRINCESS RIVERA) Medications cefTRIAXone doxycycline, 100 mg, IV Piggyback, [id number] Dulcolax Laxative, 5 mg= 1 Tab, Oral, Daily, PRN DuoNeb 0.5 mg-2.5 mg/3 mL inhalation solution, 3 mL, Nebulized Inhalation , RT_Q6H, PRN heparin, 5000 Units= 1 mL, SubCutaneous, Q8H MiraLax, 17 Gram= 1 Packet, Oral, Daily, PRN nystatin, [id number] Units= 5 mL, Swish and Spit, QID Pepcid, 20 mg= 1 Tab, Oral, Q12H sodium bicarbonate injection 150 mEq + Dextrose 5% in Water intravenous solution 1,000 mL Sodium Chloride 0.9% intravenous solution 1,000 mL, 1000 mL, IntraVENous Tylenol, 650 mg= 2 Tab, Oral, Q4H, PRN Zofran, 4 mg= 2 mL, IV Push, Q4H, PRN Lab Results Test Name Test Result Date/Time pH Art 7.44 01/17/2021 09:35 EDT pH Art 7.18 (Critical) 01/16/2021 18:00 EDT pCO2 Art 22.6 mmHg (Critical) 01/17/2021 09:35 EDT pCO2 Art 13.2 mmHg (Critical) 01/16/2021 18:00 EDT pO2 Art 118.0 mmHg (High) 01/17/2021 09:35 EDT pO2 Art 109.0 mmHg (High) 01/16/2021 18:00 EDT HCO3 Art 15.4 mmol/L (Low) 01/17/2021 09:35 EDT HCO3 Art 4.9 mmol/L (Low) 01/16/2021 18:00 EDT BE Art -7.4 mmol/L (Low) 01/17/2021 09:35 EDT BE Art -21.2 mmol/L (Low) 01/16/2021 18:00 EDT sO2 Art 98.8 % 01/17/2021 09:35 EDT sO2 Art 96.5 % 01/16/2021 18:00 EDT tHb Art 9.2 Gram/dL (Low) 01/17/2021 09:35 EDT tHb Art 12.6 Gram/dL 01/16/2021 18:00 EDT FHHb <2.4 % 01/17/2021 09:35 EDT FHHb 3.5 % 01/16/2021 18:00 EDT ctO2 12.8 mmol/L 01/17/2021 09:35 EDT ctO2 17.1 mmol/L 01/16/2021 18:00 EDT Delivery Device Type Art Cannula 01/17/2021 09:35 EDT Delivery Device Type Art Cannula 01/16/2021 18:00 EDT Temperature, F Art 98.6 Deg F 01/17/2021 09:35 EDT Temperature, F Art 98.6 Deg F 01/16/2021 18:00 EDT Art Blood Gas (ABG) Site Right Radial 01/17/2021 09:35 EDT Art Blood Gas (ABG) Site Right Radial 01/16/2021 18:00 EDT Acceptable Conrado's Test Art Acceptable 01/17/2021 09:35 EDT Acceptable Conrado's Test Art Acceptable 01/16/2021 18:00 EDT Ventilator Mode Art N/A 01/17/2021 09:35 EDT Ventilator Mode Art N/A 01/16/2021 18:00 EDT Oxygen Flow Rate Art 3.0 Liter 01/17/2021 09:35 EDT Comment Art supine 01/17/2021 09:35 EDT ABG Num of Draw Attempts 1 01/17/2021 09:35 EDT ABG Num of Draw Attempts 2 01/16/2021 18:00 EDT Sodium Level 133 mmol/L (Low) 01/16/2021 20:59 EDT Sodium Level 126 mmol/L (Low) 01/16/2021 17:43 EDT Potassium Level 5.0 mmol/L 01/16/2021 20:59 EDT Potassium Level 6.8 mmol/L (Critical) 01/16/2021 17:43 EDT Chloride Level 107 mmol/L 01/16/2021 20:59 EDT Chloride Level 101 mmol/L (Low) 01/16/2021 17:43 EDT Carbon Dioxide Level 9 mmol/L (Low) 01/16/2021 20:59 EDT Carbon Dioxide Level 8 mmol/L (Low) 01/16/2021 17:43 EDT Anion Gap 22 (High) 01/16/2021 20:59 EDT Anion Gap 24 (High) 01/16/2021 17:43 EDT Glucose Level 110 mg/dL (High) 01/16/2021 20:59 EDT Glucose Level 181 mg/dL (High) 01/16/2021 17:43 EDT Blood Urea Nitrogen 136 mg/dL (Critical) 01/16/2021 20:59 EDT Blood Urea Nitrogen 139 mg/dL (Critical) 01/16/2021 17:43 EDT Creatinine Level 5.80 mg/dL (High) 01/16/2021 20:59 EDT Creatinine Level 6.50 mg/dL (High) 01/16/2021 17:43 EDT eGFR 9 mL/min/1.73m2 (Low) 01/16/2021 20:59 EDT eGFR 8 mL/min/1.73m2 (Low) 01/16/2021 17:43 EDT eGFR NonAfrican 7 mL/min/1.73m2 (Low) 01/16/2021 20:59 EDT eGFR NonAfrican 6 mL/min/1.73m2 (Low) 01/16/2021 17:43 EDT Bun/Creatinine 23.4 (High) 01/16/2021 20:59 EDT Bun/Creatinine 21.4 (High) 01/16/2021 17:43 EDT Calcium Level 8.6 mg/dL 01/16/2021 20:59 EDT Calcium Level 8.8 mg/dL 01/16/2021 17:43 [...] EDT ALT 23 Units/Liter 01/16/2021 17:43 EDT Phosphorus 8.4 mg/dL (High) 01/16/2021 20:59 EDT Device Comment 1 Protocols Followed 01/16/2021 19:48 EDT Glucose POC2 165 mg/dL (High) 01/16/2021 19:48 EDT Lactic Acid Level 2.6 mmol/L (Critical) 01/16/2021 20:59 EDT Lactic Acid Level 2.1 mmol/L (Critical) 01/16/2021 17:43 EDT Creatinine Urine Random 38 mg/dL 01/16/2021 20:51 EDT Sodium Ur [place] 60 mMole/Liter 01/16/2021 20:51 EDT Troponin I Ultra <0.015 ng/mL 01/16/2021 17:43 EDT ProBNP 1385 pg/mL (High) 01/16/2021 17:43 EDT WBC 18.1 K/uL (High) 01/17/2021 10:45 EDT WBC 20.7 K/uL (High) 01/16/2021 20:59 EDT WBC 21.7 K/uL (High) 01/16/2021 17:43 EDT RBC 3.37 Million/uL (Low) 01/17/2021 10:45 EDT RBC 3.87 Million/uL (Low) 01/16/2021 20:59 EDT RBC 4.28 Million/uL 01/16/2021 17:43 EDT Hgb 9.0 g/dL (Low) 01/17/2021 10:45 EDT Hgb 10.3 g/dL (Low) 01/16/2021 20:59 EDT Hgb 11.3 g/dL 01/16/2021 17:43 EDT Hct 27.0 % (Low) 01/17/2021 10:45 EDT Hct 31.5 % (Low) 01/16/2021 20:59 EDT Hct 35.6 % 01/16/2021 17:43 EDT MCV 80.1 fL 01/17/2021 10:45 EDT MCV 81.4 fL 01/16/2021 20:59 EDT MCV 83.2 fL 01/16/2021 17:43 EDT MCH 26.7 pg 01/17/2021 10:45 EDT MCH 26.6 pg 01/16/2021 20:59 EDT MCH 26.4 pg 01/16/2021 17:43 EDT MCHC 33.3 Gram/dL 01/17/2021 10:45 EDT MCHC 32.7 Gram/dL 01/16/2021 20:59 EDT MCHC 31.7 Gram/dL (Low) 01/16/2021 17:43 EDT Platelet Count 292 K/uL 01/17/2021 10:45 EDT Platelet Count 350 K/uL 01/16/2021 20:59 EDT Platelet Count 389 K/uL (High) 01/16/2021 17:43 EDT MPV 10.0 fL 01/17/2021 10:45 EDT MPV 9.7 fL 01/16/2021 20:59 EDT MPV 9.8 fL 01/16/2021 17:43 EDT RDW 16.2 % (High) 01/17/2021 10:45 EDT RDW 16.6 % (High) 01/16/2021 20:59 EDT RDW 16.9 % (High) 01/16/2021 17:43 EDT Neut % 91.3 % (High) 01/16/2021 20:59 EDT Neut % 88.6 % (High) 01/16/2021 17:43 EDT Neut # 18.92 K/uL (High) 01/16/2021 20:59 EDT Neut # 19.21 K/uL (High) 01/16/2021 17:43 EDT Lymph % 1.3 % (Low) 01/16/2021 20:59 EDT Lymph % 2.5 % (Low) 01/16/2021 17:43 EDT Lymph # 0.26 x10(3)/uL (Low) 01/16/2021 20:59 EDT Lymph # 0.54 x10(3)/uL (Low) 01/16/2021 17:43 EDT Beckham % 4.2 % 01/16/2021 20:59 EDT Beckham % 4.5 % 01/16/2021 17:43 EDT Beckham # 0.88 K/uL 01/16/2021 20:59 EDT Beckham # 0.98 K/uL 01/16/2021 17:43 EDT Eos % 0.0 % 01/16/2021 20:59 EDT Eos % 0.3 % 01/16/2021 17:43 EDT Eos # 0.00 x10(3)/uL 01/16/2021 20:59 EDT Eos # 0.07 x10(3)/uL 01/16/2021 17:43 EDT Baso % 0.5 % 01/16/2021 20:59 EDT Baso % 0.6 % 01/16/2021 17:43 EDT Baso # 0.10 x10(3)/uL 01/16/2021 20:59 EDT Baso # 0.12 x10(3)/uL 01/16/2021 17:43 EDT nRBC 0.140 (High) 01/16/2021 20:59 EDT nRBC 0.300 (High) 01/16/2021 17:43 EDT RBC Morphology Abnormal 01/16/2021 17:43 EDT Anisocytosis 1+ (Abnormal) 01/16/2021 17:43 EDT Poikilocytosis 1+ (Abnormal) 01/16/2021 17:43 EDT Polychromasia 1+ (Abnormal) 01/16/2021 17:43 EDT Gemma Cells 1+ (Abnormal) 01/16/2021 17:[address] Estimate Increased (Abnormal) 01/16/2021 17:43 EDT Slide Review No 01/16/2021 20:59 EDT Slide Review Technologist 01/16/2021 17:43 EDT IG# 0.55 x10(3)/uL (High) 01/16/2021 20:59 EDT IG# 0.76 x10(3)/uL (High) 01/16/2021 17:43 EDT IG% 2.70 % (High) 01/16/2021 20:59 EDT IG% 3.50 % (High) 01/16/2021 17:43 EDT Urine Type U CleanCatch 01/16/2021 20:51 EDT Urine Color YELLOW2 01/16/2021 20:51 EDT Urine Appearance CLEAR2 01/16/2021 20:51 EDT Urine Specific [place] 1.011 01/16/2021 20:51 EDT Urine pH Dipstick 6.0 01/16/2021 20:51 EDT Urine Leukocyte Esterase MODERATE2 (Abnormal) 01/16/2021 20:51 EDT Urine Nitrite NEGATIVE2 01/16/2021 20:51 EDT Urine Protein Dipstick 30 (Abnormal) 01/16/2021 20:51 EDT Urine Glucose Dipstick NEGATIVE2 01/16/2021 20:51 EDT Urine Ketones Dipstick NEGATIVE2 01/16/2021 20:51 EDT Urine Urobilinogen Dipstick 1.0 01/16/2021 20:51 EDT Urine Bilirubin Dipstick NEGATIVE2 01/16/2021 20:51 EDT Urine Blood Dipstick MODERATE2 (Abnormal) 01/16/2021 20:51 EDT Ur RBC 2-5 (Abnormal) 01/16/2021 20:51 EDT Ur WBC 2-5 (Abnormal) 01/16/2021 20:51 EDT Ur Mucous Trace (Abnormal) 01/16/2021 20:51 EDT Ur Squamous Epithelial Cells 0-2 01/16/2021 20:51 EDT Iron Level 67 mcg/dL 01/17/2021 03:10 EDT % Iron Saturation 12.9 % (Low) 01/17/2021 03:10 EDT Ferritin Level 408.3 ng/mL (High) 01/16/2021 22:38 EDT TIBC 519.0 mcg/dL (High) 01/17/2021 03:10 EDT Bordatella pertussis Not Detected 01/16/2021 17:44 EDT Chlamydia pneumoniae Not Detected2 01/16/2021 17:44 EDT Mycoplasma pneumoniae Not Detected 01/16/2021 17:44 EDT Bordatella parapertussis Not Detected 01/16/2021 17:44 EDT Adenovirus Not Detected 01/16/2021 17:44 EDT Coronavirus 229E Not Detected 01/16/2021 17:44 EDT Coronavirus HKU1 Not Detected 01/16/2021 17:44 EDT Coronavirus NL63 Not Detected 01/16/2021 17:44 EDT Coronavirus OC43 Not Detected 01/16/2021 17:44 EDT Human metapneumovirus Not Detected 01/16/2021 17:44 EDT Influenza A Not Detected 01/16/2021 17:44 EDT Influenza A H3 Not Detected 01/16/2021 17:44 EDT Influenza A 2009 H1N1 Not Detected 01/16/2021 17:44 EDT Influenza A H1 Not Detected 01/16/2021 17:44 EDT Influenza B Not Detected 01/16/2021 17:44 EDT Parainfluenza 1 Not Detected 01/16/2021 17:44 EDT Parainfluenza 2 Not Detected 01/16/2021 17:44 EDT Parainfluenza 3 Not Detected 01/16/2021 17:44 EDT Parainfluenza 4 Not Detected 01/16/2021 17:44 EDT Respiratory Syncytial Virus Not Detected 01/16/2021 17:44 EDT Rhinovirus/Enterovirus Not Detected 01/16/2021 17:44 EDT SARS-CoV-2 (COVID19 PCR) Not Detected 01/16/2021 17:44 EDT documented in this encounter Plan of Treatment Not on file documented as of this encounter Visit Diagnoses Not on filedocumented in this encounter Care Teams Surgical Scheduler Relationship Specialty Start Date End Date Yuan Mccracken MD [address] [place] [phone] PCP - General Family Medicine 09/23/22 documented as of this encounter
--- OUTSIDE RECORDS SUMMARY | 2025-02-15 10:08 | XMS_ITS | Encounter Summary ---
Author Organization [facility] Address [address] [place] [address] Care Team Providers Care Dining Room Manager Name Role Phone Yuan Mccracken MD Primary Care Provider [phone] Encounter Details Date Type Department Care Team (Late st Contact Info) Description 01/17/2021 Transcribed Document [facility] [place] [address] [place] [address] ProviderPerry MD [address] [place] [id number] Social History Tobacco Use Types Packs/Day Years Used Date Smoking Tobacco: Never Assessed Comments Unknown Sex and Gender Information Value Date Recorded Sex Assigned at Not on file Legal Sex Female 12:32 PM CDT Gender Identity Not on file Sexual Orientation Not on file documented as of this encounter Miscellaneous Notes * Libraner Conversion Note - Perry Nunes MD - 01/17/2021 2:00 AM CDT Transverse Abdominal Muscle Surgeon Details Entered On: 01/17/2021 6:12 EDT Performed On: 01/17/2021 2:00 EDT by Annamaria Leyva RN Order Details Transport Mode Order Detail : Bed (including specialty) Isolation Precautions Order Detail : Containment Precautions Order Detail : 0 IV Order Detail : 1 Oxygen Order Detail : 1 Nurse Collect Order Detail : 1 Lift/Transfer : Maximal assist Central Line Order Detail : No Room Service : Needs Assistance Arterial Line : No Patient Needs Meds Crushed/Liquid : No Annamaria Leyva RN - 01/17/2021 6:12 EDT Electronically signed by Carlotta [facility] Conversion Pastry Cook Helper Cerner at 12/07/2022 6:29 PM CDT documented in this encounter Plan of Treatment Not on file documented as of this encounter Visit Diagnoses Not on filedocumented in this encounter Care Teams Dining Room Manager Relationship Specialty Start Date End Date Yuan Mccracken MD [address] [place] [phone] PCP - General Family Medicine 09/23/22 documented as of this encounter
--- OUTSIDE RECORDS SUMMARY | 2025-02-15 10:08 | XMS_ITS | Encounter Summary ---
Author Organization [facility] Address [address] [place] [address] Care Team Providers Care Dosimetrist Name Role Phone Yuan Mccracken MD Primary Care Provider [phone] Encounter Details Date Type Department Care Team (Late st Contact Info) Description 01/22/2021 Transcribed Document [facility] [place] [address] [place] [address] ProviderPerry MD [address] [place] [address] Social History Tobacco Use Types Packs/Day Years Used Date Smoking Tobacco: Never Assessed Comments Unknown Sex and Gender Information Value Date Recorded Sex Assigned at Not on file Legal Sex Female 12:32 PM CDT Gender Identity Not on file Sexual Orientation Not on file documented as of this encounter Miscellaneous Notes * Cerner Conversion Note - Perry Nunes MD - 01/22/2021 1:47 PM CDT On Going Discharge Planning Entered On: 01/22/2021 13:50 EDT Performed On: 01/22/2021 13:47 EDT by Maryjane Gonzalez V, Reeler Operator Focused Factory Manager Care Management Progress Note Discharge Arrangements : Patient Post-Acute Information Patient Name: CHANI VELASQUEZ Gender: Female : [birth year] Age: 60 Years No Post-Acute Placement(s) Listed No Post-Acute Service(s) Listed No Cur[place] Referral(s) Listed Discharge Options Discussed with Patient : Acute rehabilitation, Home Health, senior care Barriers to Discharge Identified : Clinical Condition of Patient Barriers to Discharge Unresolved : Clinical Condition of Patient Referral Indicators For Complex SWK Interventions : Other: self pay-Medicaid pending Is the Patient Meeting Medical Necessity : Yes Did you Attend Multidisciplinary Rounds? : Yes Maryjane Gonzalez V, Reeler Operator [facility] [place] - 01/22/2021 13:47 EDT Narrative Progress Note Narrative Progress Note : HD#5, ELOS-not recorded, RRS-Moderate, Boost-3 Patient on 2L /. IV Abx-Vanc and Zosyn. Wound care by PT. PT/OT recommending rehab. CM sent referrals via [employer]. Patient's is a resident at [facility]. Patient is self pay and has no health or presription coverage. Placement may be difficult due to pending Medicaid status. CM to follow patient's progess and SNF placement options. Maryjane Gonzalez V Reeler Operator [facility] - 01/22/2021 13:47 EDT documented in this encounter Plan of Treatment Not on file documented as of this encounter Visit Diagnoses Not on filedocumented in this encounter Care Teams Dosimetrist Relationship Specialty Start Date End Date Yuan Mccracken MD [address] [place] [phone] PCP - General Family Medicine 09/23/22 documented as of this encounter
--- OUTSIDE RECORDS SUMMARY | 2025-02-15 10:08 | XMS_ITS | Encounter Summary ---
Author Organization [facility] Address [address] [place] [address] Care Team Providers Care Title Clerk Automobile Name Role Phone Yuan Mccracken MD Primary Care Provider [phone] Encounter Details Date Type Department Care Team (Late st Contact Info) Description 01/29/2021 Transcribed Document [facility] [place] [address] [place] [address] ProviderPerry MD [address] [place], [place] [address] Social History Tobacco Use Types Packs/Day Years Used Date Smoking Tobacco: Never Assessed Comments Unknown Sex and Gender Information Value Date Recorded Sex Assigned at Not on file Legal Sex Female 12:32 PM CDT Gender Identity Not on file Sexual Orientation Not on file documented as of this encounter Miscellaneous Notes * Cerner Conversion Note - Perry Nunes MD - 01/29/2021 2:17 PM CDT UM Authorization Entered On: 01/29/2021 14:18 EDT Performed On: 01/29/2021 14:17 EDT by CARMEN MARLOW RN Primary Insurance Authorization Authorization and Policy Numbers : Insurance 1 Health Plan: MEDICAID PENDING Policy Number: [id number] Authorization Number: Insurance Primary Name : [employer] [id number] Authorization Status-Primary : Awaiting callback Reference Number-Primary : Pend ref # [id number]. Authorized Service Begin Date-Primary : 01/16/2021 EDT Historical Authorization Comments-Primary : Comment 1: CM gave a medicaid ID no. Per [facility]MM[facility] pt has Andre Phillipe. Notified [facility] clinicals submitted via [facility] portal and faxed via [employer] from 01/16 to 01/29 for Ip approval (CARMEN MARLOW RN 01/29/2021 14:06) Comment 2: MEDICAID PENDING (FABIAN DWIGHT D, RN-Utilization Review 01/28/2021 08:04) Comment 3: MEDICAID PENDING (FABIAN DWIGHT D, RN-Utilization Review 01/27/2021 08:41) Comment 4: MEDICAID PENDING (FABIAN, DWIGHT D, RN-Utilization Review 01/26/2021 08:45) Comment 5: MEDICAID PENDING (PERALTA, DWIGHT D, RN-Utilization Review 01/23/2021 09:42) Comment 6: SELF PAY (FABIAN DWIGHT D, RN-Utilization Review 01/22/2021 08:29) Comment 7: SELF PAY (FABIAN DWIGHT D, RN-Utilization Review 01/21/2021 08:19) Comment 8: Self pay at the time of review (CARMEN MARLOW RN 01/20/2021 13:51) CARMEN MARLOW RN - 01/29/2021 14:17 EDT Electronically signed by Mamadou Laguerre Conversion Assistant Property Manager Cerner at 12/07/2022 6:17 PM CDT documented in this encounter Plan of Treatment Not on file documented as of this encounter Visit Diagnoses Not on filedocumented in this encounter Care Teams Title Clerk Automobile Relationship Specialty Start Date End Date Yuan Mccracken MD [address] [place] [phone] PCP - General Family Medicine 09/23/22 documented as of this encounter
--- OUTSIDE RECORDS SUMMARY | 2025-02-15 10:08 | XMS_ITS | Encounter Summary ---
Author Organization [facility] Init [facility]atives Address [address] [place] [address] Care Team Providers Care Vice Chair Name Role Phone Yuan Mccracken MD Primary Care Provider [phone] Encounter Details Date Type Department Care Team (Late st Contact Info) Description 01/22/2021 Transcribed Document [facility] [place] [address] [place] [address] ProviderPerry MD [address] [place], [place] [id number] Social History Tobacco Use Types Packs/Day Years Used Date Smoking Tobacco: Never Assessed Comments Unknown Sex and Gender Information Value Date Recorded Sex Assigned at Not on file Legal Sex Female 12:32 PM CDT Gender Identity Not on file Sexual Orientation Not on file documented as of this encounter Miscellaneous Notes * Cerner Conversion Note - Perry Nunes MD - 01/22/2021 2:00 AM CDT Senior Game Designer Details Entered On: 01/22/2021 5:03 EDT Performed On: 01/22/2021 2:00 EDT by Karina Regalado RN-PATIENT CARE BEDSIDE NON-EXEMPT Order Details Transport Mode Order Detail : Bed (including specialty) Isolation Precautions Order Detail : Containment Precautions Order Detail : 0 Oxygen Order Detail : 1 Nurse Collect Order Detail : 0 Lift/Transfer : Maximal assist Central Line Order Detail : No Room Service : Needs Assistance Arterial Line : No Patient Needs Meds Crushed/Liquid : No Karina Regalado RN-PATIENT CARE BEDSIDE NON-EXEMPT - 01/22/2021 5:03 EDT documented in this encounter Plan of Treatment Not on file documented as of this encounter Visit Diagnoses Not on filedocumented in this encounter Care Teams Vice Chair Relationship Specialty Start Date End Date Yuan Mccracken MD [address] [place] [phone] PCP - General Family Medicine 09/23/22 documented as of this encounter
--- OUTSIDE RECORDS SUMMARY | 2025-02-15 10:08 | XMS_ITS | Encounter Summary ---
Author Organization [facility] Init iatives Address [address] [place] [address] Care Team Providers Care Character Impersonator Name Role Phone Yuan Mccracken MD Primary Care Provider [phone] Encounter Details Date Type Department Care Team (Late st Contact Info) Description 01/22/2021 Transcribed Document [facility] [place] [address] [place] [address] ProviderPerry MD [address], [place] [address] Social History Tobacco Use Types Packs/Day Years Used Date Smoking Tobacco: Never Assessed Comments Unknown Sex and Gender Information Value Date Recorded Sex Assigned at Not on file Legal Sex Female 12:32 PM CDT Gender Identity Not on file Sexual Orientation Not on file documented as of this encounter Miscellaneous Notes * Cerner Conversion Note - Perry Nunes MD - 01/22/2021 8:29 AM CDT UM Authorization Entered On: 01/22/2021 8:29 EDT Performed On: 01/22/2021 8:29 EDT by DWIGHT PERALTA RN-Utilization Review Primary Insurance Authorization Authorization and Policy Numbers : Insurance 1 Health Plan: SELF PAY Policy Number: Authorization Number: Insurance Primary Name : Self-pay Authorized Service Begin Date-Primary : 01/16/2021 EDT Authorization Comments-Primary : SELF PAY Historical Authorization Comments-Primary : Comment 1: SELF PAY (DWIGHT PERALTA, RN-Utilization Review 01/21/2021 08:19) Comment 2: Self pay at the time of review (CARMEN MARLOW RN 01/20/2021 13:51) DWIGHT PERALTA, RN-Utilization Review - 01/22/2021 8:29 EDT Electronically signed by Carlotta [facility] Conversion Waste[employer] Plant Instructor Cerner at 12/07/2022 6:13 PM CDT documented in this encounter Plan of Treatment Not on file documented as of this encounter Visit Diagnoses Not on filedocumented in this encounter Care Teams Character Impersonator Relationship Specialty Start Date End Date Yuan Mccracken MD [address] [place] [phone] PCP - General Family Medicine 09/23/22 documented as of this encounter
--- OUTSIDE RECORDS SUMMARY | 2025-02-15 10:08 | XMS_ITS | Encounter Summary ---
Author Organization [facility] [employer] Init iatives Address [address] [place] [address] Care Team Providers Care Clinical Faculty Name Role Phone Yuan Mccracken MD Primary Care Provider [phone] Encounter Details Date Type Department Care Team (Late st Contact Info) Description 01/21/2021 Transcribed Document [facility] [place] [address] [place] [address] ProviderPerry MD [address] [place], [place] [id number] Social History Tobacco Use Types Packs/Day Years Used Date Smoking Tobacco: Never Assessed Comments Unknown Sex and Gender Information Value Date Recorded Sex Assigned at Not on file Legal Sex Female 12:32 PM CDT Gender Identity Not on file Sexual Orientation Not on file documented as of this encounter Miscellaneous Notes * Cerner Conversion Note - Perry ProviderMD - 01/21/2021 9:12 AM CDT Treatment Intervention, PT Entered On: 01/26/2021 16:03 EDT Performed On: 01/26/2021 15:30 EDT by FRANCISCO MACEDO, PT General Information, PT Visit Type, PT [...] Additional Treatment Ordered By: CESIA WILSON, PT 01/26/2021 15:46 PT Additional Treatment Ordered By: FRANCISCO MACEDO, PT Active Diagnoses : 01/16/2021 12:00 Acidosis 01/16/2021 12:00 Cellulitis of unspecified part of limb 01/16/2021 12:00 General medical 01/16/2021 12:00 Hyperkalemia 01/16/2021 12:00 Hyperventilation 01/16/2021 12:00 Other disorders of electrolyte and fluid balance, not elsewhere classified 01/16/2021 12:00 Other specified abnormal findings of blood chemistry 01/16/2021 12:00 Shortness of breath Therapy Diagnosis, PT : BLE edema, wounds Admission Date : 01/16/2021 19:34 Personal Devices : Personal Devices Dentures, upper Assistive Devices : Assistive Devices No Devices Recorded Isolation Maintained : Contact FRANCISCO MACEDO, PT - 01/26/2021 15:49 EDT General Status Patient Received Status : Supine in bed Treatment Start Time : 01/26/2021 15:00 EDT Patient Left Status : Supine in bed, Communication board completed, All needs met and within reach RN/PCT Informed Comment : Catherine Zhang advised session ok to attempt Treatment End Time : 01/26/2021 15:30 EDT Treatment Time : 30 Minute(s) FRANCISCO MACEDO, PT - 01/26/2021 15:49 EDT Functional Mobility Mobility Grid Bed Roll Left : Rehab Modified independence (Comment: bed rail [FRANCISCO MACEDO, PT - 01/26/2021 15:49 EDT] ) Bed Roll Right : Rehab Modified independence (Comment: bed rail [FRANCISCO MACEDO, PT - 01/26/2021 15:49 EDT] ) FRANCISCO MACEDO, PT - 01/26/2021 15:49 EDT Cognitive Treatment, PT Follows Basic Command Findings, PT : intact Attention Findings, PT : alert FRANCISCO MACEDO, PT - 01/26/2021 15:49 EDT Edu Topics Physical Therapy Education Grid Role of Physical Therapy : Verbalizes understanding Wound Care : Verbalizes understanding FRANCISCO MACEDO, PT - 01/26/2021 15:49 EDT Plan of Care, PT PT Tx Plan/Goals Established w Patient : Yes FRANCISCO MACEDO, PT - 01/26/2021 15:49 EDT Short Term Goals Mobility/Bed Mobility STG PT Grid Goal #1 Goal #4 Activity : Supine to sit Assist : Assist, minimal Date to Meet : 01/26/2021 EDT Goal Status : Goal met Date Met : 01/21/2021 EDT Comment : See wound goals for MIST and compression wraps below FRANCISCO MACEDO, PT - 01/26/2021 15:49 EDT FRANCISCO MACEDO, PT - 01/26/2021 15:49 EDT Ambulation STG Grid Goal #1 Device : Walker, front wheel Distance : 50 ft Assist : Assist, minimal Date to Meet : 01/26/2021 EDT Goal Status : Intial Goal FRANCISCO MACEDO, PT - 01/26/2021 15:49 EDT Other PT STG Grid Goal #1 Goal #2 Goal : Open area to measure 1.5cmX0.8cm BLE malleoli will be < 29.0cm Date to Meet : 01/28/2021 EDT 01/28/2021 EDT Goal Status : Goal met Progressing, continue Date Met : 01/26/2021 EDT FRANCISCO MACEDO, PT - 01/26/2021 15:49 EDT FRANCISCO MACEDO, PT - 01/26/2021 15:49 EDT Snf Goals Mobility/Bed Mobility LTG PT Grid Goal #1 Goal #2 Goal #4 Activity : Supine to sit Sit to stand Assist : Independent, modified Independent, modified Date to Meet : 02/02/2021 EDT 02/02/2021 EDT Goal Status : Progressing, continue Progressing, continue Comment : See wound goals for MIST and compression wraps below FRANCISCO MACEDO, PT - 01/26/2021 15:49 EDT FRANCISCO MACEDO, PT - 01/26/2021 15:49 EDT FRANCISCO MACEDO, PT - 01/26/2021 15:49 EDT Ambulation LTG Grid Goal #1 Device : Walker, front wheel Distance : 150 ft Assist : Independent, modified Date to Meet : 02/02/2021 EDT Goal Status : Progressing, continue FRANCISCO MACEDO, PT - 01/26/2021 15:49 EDT Other PT LTG Grid Goal #1 Goal #2 Goal #3 Other : Open area to measure 1cmX0.5cm BLE fullest calf will be < 51.0cm Coccyx wound will measure 0.5 x 0.5 cm or less Date to Meet : 02/04/2021 EDT 02/04/2021 EDT 02/09/2021 EDT Goal Status : Goal met Goal met Initial goal Date Met : 01/26/2021 EDT 01/25/2021 EDT FRANCISCO MACEDO, PT - 01/26/2021 15:49 EDT FRANCISCO MACEDO, PT - 01/26/2021 15:49 EDT FRANCISCO MACEDO, PT - 01/26/2021 15:49 EDT Treatment Note Subjective Comment : Pt agreeable to session. Additional Objective Information : Previous foam dressing over sacrum clean and intact. This was removed and wound noted over coccyx, open, 100% bright red and measuring 1.0 cm x 0.5 cm. MIST therapy performed x 3 min per machine protocol. Area patted dry with 4x4 gauze and new large sacral Allevyn dressing placed. Assessment : Wound decreasing in size and granulating. Continued treatment recommended to futher progress wound toward healing. Plan for Treatment : cont. per POC. FRANCISCO MACEDO, PT - 01/26/2021 15:49 EDT Pain Assessment Pain Scaled Used : 0-10 Pain scale Location : Other: coccyx Pain Comment : pt reported some burning feeling during treatment FRANCISCO MACEDO, PT - 01/26/2021 15:49 EDT Image 1 - Images currently included in the form version of this document have not been included in the text rendition version of the form. Anticipated Discharge Needs, OT/PT Anticipated Discharge to : Unit, rehabilitation FRANCISCO MACEDO PT - 01/26/2021 15:49 EDT documented in this encounter Plan of Treatment Not on file documented as of this encounter Visit Diagnoses Not on filedocumented in this encounter Care Teams Clinical Faculty Relationship Specialty Start Date End Date Yuan Mccracken MD [address] [place] [phone] PCP - General Family Medicine 09/23/22 documented as of this encounter
--- OUTSIDE RECORDS SUMMARY | 2025-02-15 10:08 | XMS_ITS | Encounter Summary ---
Author Organization [facility] In iatives Address [address] [place] [address] Care Team Providers Care Pari Mutuel Ticket Cashier Name Role Phone Yuan Mccracken MD Primary Care Provider [phone] Encounter Details Date Type Department Care Team (Late st Contact Info) Description 01/21/2021 Transcribed Document [facility] [place] Family Medicine [address] [place] [address] ProviderPerry MD [address] [place] [address] Social History Tobacco Use Types Packs/Day Years Used Date Smoking Tobacco: Never Assessed Comments Unknown Sex and Gender Information Value Date Recorded Sex Assigned at Not on file Legal Sex Female 12:32 PM CDT Gender Identity Not on file Sexual Orientation Not on file documented as of this encounter Miscellaneous Notes * Cerner Conversion Note - Perry Nunes MD - 01/21/2021 3:20 PM CDT Initial Discharge Planning Entered On: 01/21/2021 15:25 EDT Performed On: 01/21/2021 15:20 EDT by JORDEN DELCID, RN-Medical Technical Writer Initial Assessment I Previously Documented Living Environment : No qualifying data available. Living Situation : Home Patient Lives With : Alone, Other: alone currently due to pt recently discharged from [facility] to a SNF Emergency Contact #1 : Dion Ayers Emergency Contact #1 Emergency Contact #1 Relationship : son Emergency Contact #2 : Chai Alvaradopedro Emergency Contact #2 Emergency Contact #2 Relationship : spouse/resident [place] Does Patient have PCP Listed? : No Medical Durable Power of House Calls Nurse Practitioner Name : no Legal Guardian : No Is Guardianship Needed : No JORDEN DELCID RN-Medical Technical Writer - 01/21/2021 15:20 EDT Initial Assessment II Sensory and Motor Deficits : Cognitive deficit, Weakness Current Home Treatments and Equipment : Bedside commode, Cane, Shower chair, Walker Does the Patient have a Floor to SNF Benefit? : No JORDEN DELCID RN-Medical Technical Writer - 01/21/2021 15:20 EDT Discharge Needs I Anticipated Discharge Date : 01/23/2021 EDT Anticipated Discharge To, CM : Home with home health, Rehabilitation Unit, [facility] facility Current Home Treatment/Equipment : Current Home Treatment/Equipment No qualifying data available. Post Acute/Home Treatments : Bedside commode, Cane, Shower chair, Walker Documentation Status Complete : Yes JORDEN DELCID RN-Medical Technical Writer - 01/21/2021 15:20 EDT Discharge Needs II Professional Skilled Services : Professional Skilled Services No qualifying data available. Needs Assistance with Transportation : Maybe Discharge Options Discussed with Patient : Acute rehabilitation, Home Health, assisted JORDEN DELCID RN-Medical Technical Writer - 01/21/2021 15:20 EDT Narrative Note Narrative Note : HD# 5. elos: not documented. RAR: moderate 57. BOOST: 3 ED admit. severe hyperkalemia. metabolic acidosis. acute renal failure. afib-rvr. lower ext cellulitis. left renal calculi. 02 4L nc. cardizem gtt to off. hep gtt to off. doxycycline/zosyn iv. coccyx mist rx. PT/OT steps to chair. spoke with Ms Velasquez. she resides in [facility]. lives alone. her spouse, Chai, is resident of [facility], available by phone. she has mentioned equipment. no hh or rehab stays. pt has no health insurance. referral to [facility], ? medicaid eligible. pt has no pcp. referral to pt access for pcp assignment. dcp: rehab vs hh. will need payor source established. spoke with bedside RNLala CARRIE W, RN-Medical Technical Writer - 01/21/2021 15:25 EDT Electronically signed by Gayle Laguerre Conversion Organizational Development Director Cerner at 12/07/2022 6:12 PM CDT documented in this encounter Plan of Treatment Not on file documented as of this encounter Visit Diagnoses Not on filedocumented in this encounter Care Teams Pari Mutuel Ticket Cashier Relationship Specialty Start Date End Date Yuan Mccracken MD [address] [place] [phone] PCP - General Family Medicine 09/23/22 documented as of this encounter
--- OUTSIDE RECORDS SUMMARY | 2025-02-15 10:08 | XMS_ITS | Encounter Summary ---
Author Organization [facility] [employer] Init iatives Address [address] [place] [address] Care Team Providers Care Fuel Buyer Name Role Phone Yuan Mccracken MD Primary Care Provider [phone] Encounter Details Date Type Department Care Team (Late st Contact Info) Description 01/22/2021 Transcribed Document [facility] [place] [address] [place] [address] ProviderPerry MD [address], [place] [address] Social History Tobacco Use Types Packs/Day Years Used Date Smoking Tobacco: Never Assessed Comments Unknown Sex and Gender Information Value Date Recorded Sex Assigned at Not on file Legal Sex Female 12:32 PM CDT Gender Identity Not on file Sexual Orientation Not on file documented as of this encounter Miscellaneous Notes * Cerner Conversion Note - Perry Nunes MD - 01/22/2021 10:00 AM CDT Patient: CHANI VELASQUEZ Age: 60 Years Sex: Female : 1960 Subjective Transferred to regular floor. renal function improving. hypokalemia improved. Still has some sob and LE edema. Will continue diuretics Vital Signs T: 36.9 ??C TMIN: 36.6 ??C TMAX: 36.9 ??C HR: 69 RR: 24 BP: 130/84 SpO2: 97% HT: 162.56 cm WT: 122.95 kg BMI: 46.53 Oxygen Settings (Last) Oxygen Therapy Mode: Nasal cannula (01/22/21 09:14:00) Oxygen Flow Rate: 2 Liter/Min (01/22/21 09:14:00) Intake & Output Totals Last 24 Hours (7a-7a) Input Total: 1945.8 mL Output Total: 1640 mL Balance: 305.8 mL Physical Exam General: No acute distress, [...] Monitor renal function. Supplement K and Mag Add lasix 20mg daily Daily labs. VTE Prophylaxis - Medical Apixaban 5 mg, Oral, Tab, [id number], Routine, Start 01/21/21 10:00:00 EDT, 01/21/21 9:43:00 [...] PRN Eliquis, 5 mg= 1 Tab, Oral, [id number] Lac-Hydrin 12% topical lotion, 1 Application, Topical, BID magnesium sulfate, 2 Gram= 50 mL, IV Piggyback, Daily, PRN magnesium sulfate, 2 Gram= 50 mL, IV Piggyback, Q2H, PRN metoprolol tartrate, 50 mg= 1 Tab, Oral, BID MiraLax, 17 Gram= 1 Packet, Oral, Daily, PRN Mucinex, 600 mg= 1 Tab, Oral, BID, PRN nystatin, [id number] Units= 5 mL, Swish and Swallow , [...] Potassium Level 3.7 mmol/L 01/22/2021 06:25 EDT Potassium Level 3.9 mmol/L 01/21/2021 12:36 EDT Chloride Level 105 mmol/L 01/22/2021 06:25 [...] Level 7.9 mg/dL (Low) 01/22/2021 06:25 EDT Magnesium Level 1.9 mg/dL 01/21/2021 12:36 EDT WBC 16.9 K/uL (High) 01/22/2021 06:25 [...] ALYC # 2 K/uL 01/22/2021 06:25 EDT [place] Percent Man 2 % (Low) 01/22/2021 06:25 [...] 01/22/2021 06:25 EDT Electronically signed by Carlotta, [facility] Conversion Brand Advisor Cerner at 12/07/2022 6:12 PM CDT documented in this encounter Plan of Treatment Not on file documented as of this encounter Visit Diagnoses Not on filedocumented in this encounter Care Teams Fuel Buyer Relationship Specialty Start Date End Date Yuan Mccracken MD [address] [place] [phone] PCP - General Family Medicine 09/23/22 documented as of this encounter
--- OUTSIDE RECORDS SUMMARY | 2025-02-15 10:08 | XMS_ITS | Encounter Summary ---
Author Organization [facility] [employer] Init iatives Address [address] [place] [address] Care Team Providers Care French Lecturer Name Role Phone Yuan Mccracken MD Primary Care Provider [phone] Encounter Details Date Type Department Care Team (Late st Contact Info) Description 01/17/2021 Transcribed Document [facility] [place] Family [place] [address] [place] [address] ProviderPerry MD [address], [place] [address] Social History Tobacco Use Types Packs/Day Years Used Date Smoking Tobacco: Never Assessed Comments Unknown Sex and Gender Information Value Date Recorded Sex Assigned at Not on file Legal Sex Female 12:32 PM CDT Gender Identity Not on file Sexual Orientation Not on file documented as of this encounter Miscellaneous Notes * Cerner Conversion Note - Perry Nunes MD - 01/17/2021 9:16 AM CDT UM Authorization Entered On: 01/17/2021 9:16 EDT Performed On: 01/17/2021 9:16 EDT by MAHSA PAGAN Mkt Complaint Analyst-Utilization Mgt Primary Insurance Authorization Authorization and Policy Numbers : Insurance 1 Health Plan: SELF PAY Policy Number: Authorization Number: Insurance Primary Name : Self-pay Historical Authorization Comments-Primary : No Authorization Comments Found MAHSA PAGAN Mkt Complaint Analyst-Utilization Mgt - 01/17/2021 9:16 EDT documented in this encounter Plan of Treatment Not on file documented as of this encounter Visit Diagnoses Not on filedocumented in this encounter Care Teams French Lecturer Relationship Specialty Start Date End Date Yuan Mccracken MD [address] [place] [phone] PCP - General Family Medicine 09/23/22 documented as of this encounter
--- OUTSIDE RECORDS SUMMARY | 2025-02-15 10:08 | XMS_ITS | Encounter Summary ---
Author Organization [facility] Init iatives Address [address] [place] [address] Care Team Providers Care House Player Name Role Phone Yuan Mccracken MD Primary Care Provider [phone] Encounter Details Date Type Department Care Team (Late st Contact Info) Description 01/17/2021 Transcribed Document [facility] [place] [address] [place] [address] ProviderPerry MD [address] [place] [address] Social History Tobacco Use Types Packs/Day Years Used Date Smoking Tobacco: Never Assessed Comments Unknown Sex and Gender Information Value Date Recorded Sex Assigned at Not on file Legal Sex Female 12:32 PM CDT Gender Identity Not on file Sexual Orientation Not on file documented as of this encounter Miscellaneous Notes * Cerner Conversion Note - Perry ProviderMD - 01/17/2021 2:41 PM CDT Attempt to Treat, OT Entered On: 01/17/2021 14:41 EDT Performed On: 01/17/2021 14:41 EDT by PAMELA OLIVEIRA OTR/Barry Attempt to Treat Inability to Treat Comment : Hold per nsg due to multiple medical issues. Will follow up as schedule allows. PAMELA OLIVEIRA OTR/Barry - 01/17/2021 14:41 EDT documented in this encounter Plan of Treatment Not on file documented as of this encounter Visit Diagnoses Not on filedocumented in this encounter Care Teams House Player Relationship Specialty Start Date End Date Yuan Mccracken MD [address] [place] [phone] PCP - General Family Medicine 09/23/22 documented as of this encounter
--- OUTSIDE RECORDS SUMMARY | 2025-02-15 10:08 | XMS_ITS | Encounter Summary ---
Author Organization [facility] Init iatives Address [address] [place] [address] Care Team Providers Care Reinstatement Clerk Name Role Phone Yuan Mccracken MD Primary Care Provider [phone] Encounter Details Date Type Department Care Team (Late st Contact Info) Description 01/17/2021 Transcribed Document [facility] [place] [address] [place] [address] ProviderPerry MD [address], [place] [id number] Social History Tobacco Use Types Packs/Day Years Used Date Smoking Tobacco: Never Assessed Comments Unknown Sex and Gender Information Value Date Recorded Sex Assigned at Not on file Legal Sex Female 12:32 PM CDT Gender Identity Not on file Sexual Orientation Not on file documented as of this encounter Miscellaneous Notes * Cerner Conversion Note - Perry Nunes MD - 01/17/2021 5:00 AM CDT Chart Check - Review Order Profile Entered On: 01/17/2021 6:13 EDT Performed On: 01/17/2021 5:00 EDT by Annamaria Leyva RN Chart Check Powerplans Initiated/Discontinued as Appropriate : Not applicable All Active Orders Reviewed : Yes Annamaria Leyva RN - 01/17/2021 6:12 EDT documented in this encounter Plan of Treatment Not on file documented as of this encounter Visit Diagnoses Not on filedocumented in this encounter Care Teams Reinstatement Clerk Relationship Specialty Start Date End Date Yuan Mccracken MD [address] [place] [phone] PCP - General Family Medicine 09/23/22 documented as of this encounter
--- OUTSIDE RECORDS SUMMARY | 2025-02-15 10:08 | XMS_ITS | Encounter Summary ---
Author Organization [facility] In iatives Address [address] [place] [address] Care Team Providers Care Pharmaceutical Officer Name Role Phone Yuan Mccracken MD Primary Care Provider [phone] Encounter Details Date Type Department Care Team (Late st Contact Info) Description 01/17/2021 Transcribed Document [facility] [place] [address] [place] [address] ProviderPerry MD [address], [place] [id number] Social History Tobacco Use Types Packs/Day Years Used Date Smoking Tobacco: Never Assessed Comments Unknown Sex and Gender Information Value Date Recorded Sex Assigned at Not on file Legal Sex Female 12:32 PM CDT Gender Identity Not on file Sexual Orientation Not on file documented as of this encounter Miscellaneous Notes * Cerner Conversion Note - Perry Nunes MD - 01/17/2021 5:00 PM CDT Chart Check - Review Order Profile Entered On: 01/17/2021 19:00 EDT Performed On: 01/17/2021 17:00 EDT by Maximo Saldaña Non Emp RN Chart Check Powerplans Initiated/Discontinued as Appropriate : Yes All Active Orders Reviewed : Yes Maximo Saldaña Non Emp RN - 01/17/2021 19:00 EDT documented in this encounter Plan of Treatment Not on file documented as of this encounter Visit Diagnoses Not on filedocumented in this encounter Care Teams Pharmaceutical Officer Relationship Specialty Start Date End Date Yuan Mccracken MD [address] [place] [phone] PCP - General Family Medicine 09/23/22 documented as of this encounter
--- OUTSIDE RECORDS SUMMARY | 2025-02-15 10:08 | XMS_ITS | Encounter Summary ---
Author Organization [employer] [facility] Address [address] [place] [address] Care Team Providers Care Garbage Truck Helper Name Role Phone Yuan Mccracken MD Primary Care Provider [phone] Encounter Details Date Type Department Care Team (Late st Contact Info) Description 01/22/2021 Transcribed Document [facility] [place] Family Medicine [facility] [place] [address] ProviderPerry MD [address] [place] [address] Social History Tobacco Use Types Packs/Day Years Used Date Smoking Tobacco: Never Assessed Comments Unknown Sex and Gender Information Value Date Recorded Sex Assigned at Not on file Legal Sex Female 12:32 PM CDT Gender Identity Not on file Sexual Orientation Not on file documented as of this encounter Miscellaneous Notes * Cerner Conversion Note - Perry Nunes MD - 01/22/2021 11:39 AM CDT Patient: CHANI VELASQUEZ Age: 60 [...] had progressive right leg swelling and erythema PAST MEDICAL HISTORY Chronic LE edema Nephrolithiasis Acute on ?chronic kidney disease BMI 44 SH quit smoking 12 years ago has been placed in a NH after ICH Review of Systems + chronic right leg ulceration + claudication and bilateral lymphedema No chest pain, abdominal pain, nausea, vomiting, diarrhea. No fever, chills. No recent headache. No back pain. No epistaxis, hemoptysis, hematemesis Health Status Current medications: (Selected) Inpatient Medications Ordered Dulcolax Laxative: 5 mg, Oral, Daily, PRN: Constipation Eliquis: 5 mg, Oral, [id number] Lac-Hydrin 12% topical lotion: 1 Application, Topical, BID Lasix: 20 mg, Oral, Daily MiraLax: 17 Gram, Oral, Daily, PRN: Constipation Mucinex: 600 mg, Oral, BID, PRN: Cough Pepcid: 20 mg, Oral, Daily Tylenol: 650 mg, Oral, Q4H, PRN: Pain (Mild 1-3) Zofran: 4 mg, IV Push, Q4H, PRN: Nausea Zosyn + Sodium Chloride 0.9% intravenous solution 100 mL: 3.375 Gram, 33.33 mL/Hr, IV Piggyback, Q6HInt albuterol-ipratropium 100 mcg-20 mcg/inh inhalation aerosol: 1 [...] (See Comment) doxycycline: 100 mg, Oral, Q12H magnesium sulfate: 2 Gram, 50 mL, 25 [...] IV Piggyback, Q6H, PRN: Other (See Comment) vancomycin + Sodium Chloride 0.9% intravenous solution 500 mL: 1,750 mg, 250 mL/Hr, IV Piggyback, [id number] Physical Examination VS/Measurements Vitals Signs (last 24 hrs) Last Charted Minimum Maximum Temp 98.3 (JAN 22 11:09) 97.9 (JAN 21 20:21) 98.5 (JAN 22 05:43) Apical HR 69 (JAN 22 08:14) 69 (JAN 22 08:14) 98 (JAN 21 23:44) Mon HR 67 (JAN 22 11:09) 66 (JAN 21 12:35) 76 (JAN 21 20:21) Resp Rate H 24 (JAN 22 05:43) H 24 (JAN 22 05:43) H 33 (JAN 21 13:00) SBP 124 (JAN 22 11:09) 99 (JAN 21 16:00) 130 (JAN 22 05:43) DBP 77 (JAN 22 11:09) L 52 (JAN 21 16:00) 84 (JAN 22 05:43) MAP 100 (JAN 22 11:09) 70 (JAN 21 16:00) 100 (JAN 22 11:09) SpO2 97 (JAN 22 05:43) L 93 (JAN 21 14:00) 99 (JAN 21 12:00) , Measurements from flowsheet : Measurements 01/22/2021 4:00 EDT Height Source Stated Height Entry Format [place] Height/Length, LATVIAN (ft) 5 ft Height/Length LATVIAN 4 Inch CLINICALHEIGHT 162.56 cm Routine Weight Entry Format [place] Routine Weight, Pounds 270 lb Routine Weight, Ounces 8 oz Routine Weight Calculation 122.95 kg Body Mass Index (BMI), Routine 46.53 kg/m2 Body Surface Area (BSA), Routine 2.23 m2 General: Alert and oriented, No acute distress, [...] a fetid odor on the posterior aspect. Review / Management Results review: Labs (Last four charted values) WBC H 16.9 (JAN 22) H 20.0 (JAN 21) H 16.5 (JAN 20) H 14.2 (JAN 20) HB L 8.8 (JAN 22) L 8.7 (JAN 21) L 9.2 (JAN 20) L 8.7 (JAN 20) HCT L 29.9 (JAN 22) L 28.2 (JAN 21) L 29.6 (JAN 20) L 27.4 (JAN 20) Plt 341 (JAN 22) 322 (JAN 21) 305 (JAN 20) 297 (JAN 20) Na 136 (JAN 22) 137 (JAN 21) 139 (JAN 20) 141 (JANUARY 19) K 3.7 (JAN 22) 3.9 (JAN 21) L 3.2 (JAN 21) L 3.1 (JAN 20) Cl 105 (JAN 22) 103 (JAN 21) 105 (JAN 20) 107 (JANUARY 19) CO2 27 (JAN 22) 29 (JAN 21) 26 (JAN 20) 29 (JANUARY 19) BUN H 32 (JAN 22) H 34 (JAN 21) H 48 (JAN 20) H 70 (JANUARY 19) Cr H 1.30 (JAN 22) H 1.40 (JAN 21) H 1.60 (JAN 20) H 1.90 (JANUARY 19) Glu R H 121 (JAN 22) H 111 (JAN 21) H 125 (JAN 20) H 139 (JANUARY 19) Ca L 7.9 (JAN 22) L 7.2 (JAN 21) L 7.5 (JAN 20) L 7.3 (JANUARY 19) Lactic 2.0 (JANUARY 19) C 2.5 (JANUARY [...] (JANUARY 16) Troponin <0.015 (JANUARY 16) . Impression and Plan IMPRESSION -- Bilateral LE cellulitis R>>L Infected ulcer right posterior calf Fetid odor desite therapy with vancomycin and zosyn Suspect ischemic etiology -- Right perihilar infiltrate -- Acute/ ?chronic kidney disease -- Nephrolithiasis -- Claudication -- Prior tobacco -- BMI 44 -- RLL lung nodule RECOMMENDATIONS -- culture right leg wound -- consider changing to merrem AFTER the culture has been sent -- arterial dopplers -- PT consult for mist therapy to right leg -- consider vascular consult Electronically signed by Gayle Laguerre Conversion Manager Field Investigations Cerner at 12/07/2022 6:27 PM CDT documented in this encounter Plan of Treatment Not on file documented as of this encounter Visit Diagnoses Not on filedocumented in this encounter Care Teams Garbage Truck Helper Relationship Specialty Start Date End Date Yuan Mccracken MD [address] [place] [phone] PCP - General Family Medicine 09/23/22 documented as of this encounter
--- OUTSIDE RECORDS SUMMARY | 2025-02-15 10:08 | XMS_ITS | Encounter Summary ---
Author Organization [facility] Address [address] [place] [address] Care Team Providers Care Wind Field Service Manager Name Role Phone Yuan Mccracken MD Primary Care Provider [phone] Encounter Details Date Type Department Care Team (Late st Contact Info) Description 01/21/2021 Transcribed Document [facility] [address] [place] [address] ProviderPerry MD [address] [place], [place] [address] Social History Tobacco Use Types Packs/Day Years Used Date Smoking Tobacco: Never Assessed Comments Unknown Sex and Gender Information Value Date Recorded Sex Assigned at Not on file Legal Sex Female 12:32 PM CDT Gender Identity Not on file Sexual Orientation Not on file documented as of this encounter Miscellaneous Notes * Cerner Conversion Note - Perry Nunes MD - 01/21/2021 7:30 PM CDT Meds to Bed Enrollment Entered On: 01/25/2021 8:48 EDT Performed On: 01/21/2021 19:30 EDT by MAREN BOLTON PHARMACIST-MEDICATION RECON Meds to Bed Enrollment Patient Enrollment Decision: : No/do not enroll in meds to bed program Reason for Declining Meds to Bed Program: : Discharge to facility MAREN BOLTON PHARMACIST-MEDICATION RECON - 01/25/2021 8:48 EDT documented in this encounter Plan of Treatment Not on file documented as of this encounter Visit Diagnoses Not on filedocumented in this encounter Care Teams Wind Field Service Manager Relationship Specialty Start Date End Date Yuan Mccracken MD [facility] [place] [phone] PCP - General Family Medicine 09/23/22 documented as of this encounter
--- OUTSIDE RECORDS SUMMARY | 2025-02-15 10:08 | XMS_ITS | Encounter Summary ---
Author Organization [facility] Address [address] [place] [address] Care Team Providers Care Project Management Manager Name Role Phone Yuan Mccracken MD Primary Care Provider [phone] Encounter Details Date Type Department Care Team (Late st Contact Info) Description 01/17/2021 Transcribed Document [facility] [place] Family Medicine [address] [place] [address] ProviderPerry MD [address] [place], [place] [id number] Social History Tobacco Use Types Packs/Day Years Used Date Smoking Tobacco: Never Assessed Comments Unknown Sex and Gender Information Value Date Recorded Sex Assigned at Not on file Legal Sex Female 12:32 PM CDT Gender Identity Not on file Sexual Orientation Not on file documented as of this encounter Miscellaneous Notes * Cerner Conversion Note - Perry Nunes MD - 01/17/2021 11:01 AM CDT Consult Phone Call Documentation Entered On: 01/17/2021 18:47 EDT Performed On: 01/17/2021 11:01 EDT by Maximo Saldaña Non Emp RN Phone Call for Consults Consult Phone Call/Page Attempt : First call Maximo Saldaña Non Emp RN - 01/17/2021 18:46 EDT documented in this encounter Plan of Treatment Not on file documented as of this encounter Visit Diagnoses Not on filedocumented in this encounter Care Teams Project Management Manager Relationship Specialty Start Date End Date Yuan Mccracken MD [address] [place] [address] PCP - General Family Medicine 09/23/22 documented as of this encounter
--- OUTSIDE RECORDS SUMMARY | 2025-02-15 10:08 | XMS_ITS | Encounter Summary ---
Author Organization [employer] Address [address] [place] [address] Care Team Providers Care Rubber Press Tender Name Role Phone Yuan Mccracken MD Primary Care Provider [phone] Encounter Details Date Type Department Care Team (Late st Contact Info) Description 01/29/2021 Transcribed Document [facility] [place] Family Medicine [address] [place] [address] ProviderPerry MD [address] [place], [place] [address] Social History Tobacco Use Types Packs/Day Years Used Date Smoking Tobacco: Never Assessed Comments Unknown Sex and Gender Information Value Date Recorded Sex Assigned at Not on file Legal Sex Female 12:32 PM CDT Gender Identity Not on file Sexual Orientation Not on file documented as of this encounter Miscellaneous Notes * Cerner Conversion Note - Perry Nunes MD - 01/29/2021 1:04 PM CDT Education-Sepsis Entered On: 01/29/2021 13:06 EDT Performed On: 01/29/2021 13:04 EDT by LEOPOLDO CARVER jada Teaching/Learning Assessment Barriers To Learning : None evident Individuals Taught : Patient Readiness to Learn : Cooperative Baseline Knowledge of Topic : None Readiness to Learn : Explanation, Printed materials System Generated Printed Materials *Q : No Learning Style Preferences Patient : Verbal explanation Learning Style Preferences Family : None LEOPOLDO CARVER RPh - 01/29/2021 13:04 EDT Education Comment : Provided sepsis educational materials, reviwed immunization history, and identified patient-defined goals. No opportunities for improvement identified for management of sepsis and overall experience. LEOPOLDO CARVER [facility] - 01/29/2021 13:07 EDT Electronically signed by Carlotta [facility] Conversion Gunstock Repairer Kathy at 12/07/2022 6:13 PM CDT documented in this encounter Plan of Treatment Not on file documented as of this encounter Visit Diagnoses Not on filedocumented in this encounter Care Teams Rubber Press Tender Relationship Specialty Start Date End Date Yuan Mccracken MD [address] [place] [phone] PCP - General Family Medicine 09/23/22 documented as of this encounter
--- OUTSIDE RECORDS SUMMARY | 2025-02-15 10:09 | XMS_ITS | Encounter Summary ---
Author Organization [facility] Address [address] [place] [address] Care Team Providers Care Census Taker Name Role Phone Yuan Mccracken MD Primary Care Provider [phone] Encounter Details Date Type Department Care Team (Late st Contact Info) Description 01/23/2021 Transcribed Document [facility] [place] Family Medicine [address] [place] [address] ProviderPerry MD [address] [place], [place] [address] Social History Tobacco Use Types Packs/Day Years Used Date Smoking Tobacco: Never Assessed Comments Unknown Sex and Gender Information Value Date Recorded Sex Assigned at Not on file Legal Sex Female 12:32 PM CDT Gender Identity Not on file Sexual Orientation Not on file documented as of this encounter Miscellaneous Notes * Cerner Conversion Note - Perry Nunes MD - 01/23/2021 11:08 AM CDT PLEASE MODIFY BEFORE SIGNING CLINICAL DOCUMENTATION CLARIFICATION FORM: Dear : ___Brad Date / Time: ____01/23/21 Please exercise your independent, professional judgment in responding to the clarification form. Clinical indicators are provided on the bottom of this form for your review Please check appropriate box(es): [ x ] Severe sepsis with associated acute organ dysfunction: MISHA - Present on admission [ ] SIRS, due to non-infectious process, with associated acute organ dysfunction: MISHA - Present on admission [ ] Other diagnosis [ ] Unable to determine For continuity of documentation, please document condition throughout progress notes and discharge summary. Thank You. To be completed by CDI/Coding staff for physician review: Present Clinical Indicators - Signs / Symptoms / Labs Results and Location in Medical Record [ X ] Respiratory rate >20/min, hypoxemia, and or hypercapnia 01/16/21 17:33 - Vitals - RR 44 01/16/21 20:38 - Vitals - RR 38 01/16/21 21:00 - Vitals - RR 35 01/16/21 21:30 - Vitals - RR 37 01/16/21 - Hyperventilating secondary to metabolic acidosis [ X ] Heart Rate/Tachycardia (>90 bpm), SBP<100mmHg 01/16/21 17:33 - Vitals - HR 122 01/16/21 20:38 - Vitals - HR 111 01/16/21 21:00 - Vitals - HR 109 01/16/21 21:30 - Vitals - HR 109 [ X ] Acute organ dysfunction/failure 01/16/21 - H&P - Acute renal failure [ X ] Metabolic acidosis Lactic Acid >2mmol/L OR 36mg/dL, 01/16/21 17:43 - Labs - Lactic Acid 2.1 01/16/21 20:59 - Labs - Lactic Acid 2.6 01/17/21 - Labs - Lactic Acid 2.3 [ X ] Oliguria , increase BUN/Cr, decreased GFR, elevated liver enzymes 01/16/21 - Labs - Creatinine 6.50 01/17/21 - Labs - Creatinine 4.40 01/18/21 - Labs - Creatinine 2.80 [ X ] WBC count (>12,000/mm^4 or <4000/mm^3 or 70% neuts, 10% bands) 01/16/21 - Labs - WBC 21.7, Neuts 88.6% 01/17/21 - Labs - WBC 18.1, Neuts 91.6% [ X ] Hyperglycemia in absence of diabetes mellitus 01/16/21 - Labs - Glucose 181 01/17/21 - Labs - Glucose 158 01/18/21 - Labs - Glucose 123 Present Risk Factors Results and Location in Medical Record [ X ] Infection/Bacteremia 01/16/21 - H&P - Lower extremity cellulitis 01/22/21 - ID Consult - Infected ulcer right calf. Fetid odor despite therapy with vancomycin and Zosyn. Suspect ischemic etiology [ X ] Pneumonia, UTI, infected wound, gangrenous gall bladder Diabetes or Cancer 01/18/21 - Progress notes - Pneumonia Present Treatments Results and Location in Medical Record [ X ] Initiation Sepsis Protocol ICU 01/16/21 - MD Orders - Admit to critical care [ X ] Daily CBC, blood/sputum/wound cx 01/16/21 - MD Orders - Blood cultures x2 01/16/21 through 01/22/21 - MD Orders - Daily CBC [ X ] ID Consult 01/21/21 - MD Orders - Consult ID [ X ] IV Antibiotics ??? broad spectrum 01/17/21 - Orders - Doxycycline 100 mg IV Q12H 01/20/21 - Orders - Zosyn 3.375 Gm IV Q6H 01/21/21 - Orders - Vancomycin 1,750 mg IV Q24H CDS/Php Magento Developer Signature: __Jim oKch___ Phone #: __[phone]__ Date/Time: __01/23/21__ This is a permanent part of the Medical Record 2019 [facility] Updated: documented in this encounter Plan of Treatment Not on file documented as of this encounter Visit Diagnoses Not on filedocumented in this encounter Care Teams Census Taker Relationship Specialty Start Date End Date Yuan Mccracken MD [address] [place] [phone] PCP - General Family Medicine 09/23/22 documented as of this encounter
--- OUTSIDE RECORDS SUMMARY | 2025-02-15 10:09 | XMS_ITS | Encounter Summary ---
Author Organization [facility] Address [address] [place] [address] Care Team Providers Care Automatic Door Mechanic Name Role Phone Yuan Mccracken MD Primary Care Provider [phone] Encounter Details Date Type Department Care Team (Late st Contact Info) Description 01/24/2021 Transcribed Document [facility] [place] Family Medicine [address] [place] [address] ProviderPerry MD [address] [place] [place], [place] [address] Social History Tobacco Use Types Packs/Day Years Used Date Smoking Tobacco: Never Assessed Comments Unknown Sex and Gender Information Value Date Recorded Sex Assigned at Not on file Legal Sex Female 12:32 PM CDT Gender Identity Not on file Sexual Orientation Not on file documented as of this encounter Miscellaneous Notes * Cerner Conversion Note - Perry Nunes MD - 01/24/2021 10:39 AM CDT Patient: CHANI VELASQUEZ Age: 60 Years Sex: Female : 1960 Subjective Wrosening volume overload. Renal function worse today. C/o sob cr 1.4. She is eating chips and has 1.5 liter bottle of dark soda at her bedside Vital Signs T: 36.8 ??C TMIN: 36.7 ??C TMAX: 37.3 ??C HR: 65 RR: 20 BP: 129/79 SpO2: 95% HT: 162.56 cm WT: 131.36 kg BMI: 49.71 Oxygen Settings (Last) Oxygen Therapy Mode: Nasal cannula (01/24/21 08:56:00) Oxygen Flow Rate: 3 Liter/Min (01/24/21 08:56:00) Intake & Output Totals Last 24 Hours (7a-7a) Input Total: 2389.98 mL Output Total: 1100 mL Balance: 1289.98 mL Physical Exam General: No acute distress, [...] w RVR Anemia: Hb stable. Recs Increase Lasix to 20 mg daily. Need to limit Na intake that is predominantly the reason for worsening of recent worsening of volume status. Monitor renal function. Supplement K and Mag Daily labs. VTE Prophylaxis - Medical Apixaban 5 mg, Oral, Tab, [id number], Routine, Start 01/21/21 10:00:00 EDT, 01/21/21 9:43:00 EDT (EDI BHAT) Medications albuterol-ipratropium 100 mcg-20 mcg/inh inhalation aerosol, 1 Puff, Inhalation, Q4H While Awake, PRN calcium gluconate calcium gluconate calcium gluconate + Sodium Chloride 0.9% intravenous solution 100 mL calcium gluconate + Sodium Chloride 0.9% intravenous solution 100 mL doxycycline, 100 mg= 1 Cap, Oral, Q12H Dulcolax Laxative, 5 mg= 1 Tab, Oral, Daily, PRN Eliquis, 5 mg= 1 Tab, Oral, [id number] Lac-Hydrin 12% topical lotion, 1 Application, Topical, [...] mg= 1 Tab, Oral, BID, PRN nystatin, [id number] Units= 5 mL, Swish and Swallow , [...] Test Result Date/Time Sodium Level 137 mmol/L 01/24/2021 07:39 EDT Potassium Level 4.4 mmol/L 01/24/2021 07:39 EDT Chloride Level 109 mmol/L 01/24/2021 07:39 EDT Carbon Dioxide Level 24 mmol/L 01/24/2021 07:39 EDT Anion Gap 8 (Low) 01/24/2021 07:39 EDT Glucose Level 124 mg/dL (High) 01/24/2021 07:39 EDT Blood Urea Nitrogen 26 mg/dL (High) 01/24/2021 07:39 EDT Creatinine Level 1.40 mg/dL (High) 01/24/2021 07:39 EDT eGFR 46 mL/min/1.73m2 (Low) 01/24/2021 07:39 EDT eGFR NonAfrican 38 mL/min/1.73m2 (Low) 01/24/2021 07:39 EDT Bun/Creatinine 18.6 01/24/2021 07:39 EDT Calcium Level 7.9 mg/dL (Low) 01/24/2021 07:39 EDT Protein Total 6.3 Gram/dL (Low) 01/24/2021 07:39 EDT Albumin Level 1.5 Gram/dL (Low) 01/24/2021 07:39 EDT Globulin 4.8 Gram/dL (High) 01/24/2021 07:39 EDT A/G Ratio 0.3 (Low) 01/24/2021 07:39 EDT Bilirubin Total 0.5 mg/dL 01/24/2021 07:39 EDT Alk Phos 57 Units/Liter 01/24/2021 07:39 EDT AST 25 Units/Liter 01/24/2021 07:39 EDT ALT 28 Units/Liter 01/24/2021 07:39 EDT Magnesium Level 1.6 mg/dL 01/24/2021 07:39 EDT Phosphorus 3.4 mg/dL 01/24/2021 07:39 EDT Calcium Ionized 1.11 mmol/L (Low) 01/24/2021 07:39 EDT WBC 13.0 K/uL (High) 01/24/2021 07:39 EDT RBC 3.16 Million/uL (Low) 01/24/2021 07:39 EDT Hgb 8.4 g/dL (Low) 01/24/2021 07:39 EDT Hct 29.0 % (Low) 01/24/2021 07:39 EDT MCV 91.8 fL 01/24/2021 07:39 EDT MCH 26.6 pg 01/24/2021 07:39 EDT MCHC 29.0 Gram/dL (Low) 01/24/2021 07:39 EDT Platelet Count 399 K/uL (High) 01/24/2021 07:39 EDT MPV 10.4 fL 01/24/2021 07:39 EDT RDW 17.6 % (High) 01/24/2021 07:39 EDT Neut % 79.3 % (High) 01/24/2021 07:39 EDT Neut # 10.30 K/uL (High) 01/24/2021 07:39 EDT Lymph % 9.8 % (Low) 01/24/2021 07:39 EDT Lymph # 1.28 x10(3)/uL 01/24/2021 07:39 EDT [place] % 6.8 % 01/24/2021 07:39 EDT [place] # 0.88 K/uL 01/24/2021 07:39 EDT Eos % 1.4 % 01/24/2021 07:39 EDT Eos # 0.18 x10(3)/uL 01/24/2021 07:39 EDT Baso % 0.2 % 01/24/2021 07:39 EDT Baso # 0.03 x10(3)/uL 01/24/2021 07:39 EDT Slide Review No 01/24/2021 07:39 EDT IG# 0.33 x10(3)/uL (High) 01/24/2021 07:39 EDT IG% 2.50 % (High) 01/24/2021 07:39 EDT Vancomycin Trough 14.4 mcg/mL 01/23/2021 17:04 EDT Electronically signed by [facility], [facility] Conversion Retail Management Keyholder Cerner at 12/07/2022 6:11 PM CDT documented in this encounter Plan of Treatment Not on file documented as of this encounter Visit Diagnoses Not on filedocumented in this encounter Care Teams Automatic Door Mechanic Relationship Specialty Start Date End Date Yuan Mccracken MD [address] [place] [phone] PCP - General Family Medicine 09/23/22 documented as of this encounter
--- OUTSIDE RECORDS SUMMARY | 2025-02-15 10:09 | XMS_ITS | Encounter Summary ---
Author Organization [facility] Init [facility] Address [address] [place] [address] Care Team Providers Care Slope Hoist Operator Name Role Phone Yuan Mccracken MD Primary Care Provider [phone] Encounter Details Date Type Department Care Team (Late st Contact Info) Description 01/23/2021 Transcribed Document [facility] [place] [address] [place] [address] ProviderPerry MD [address] [place], [place] [id number] Social History Tobacco Use Types Packs/Day Years Used Date Smoking Tobacco: Never Assessed Comments Unknown Sex and Gender Information Value Date Recorded Sex Assigned at Not on file Legal Sex Female 12:32 PM CDT Gender Identity Not on file Sexual Orientation Not on file documented as of this encounter Miscellaneous Notes * Cerner Conversion Note - Perry Nunes MD - 01/23/2021 2:00 AM CDT Flexible Babysitter Details Entered On: 01/23/2021 5:35 EDT Performed On: 01/23/2021 2:00 EDT by Karina Regalado RN-PATIENT CARE [...] Karina Regalado RN-PATIENT CARE BEDSIDE NON-EXEMPT - 01/23/2021 5:35 EDT Electronically signed by Carlotta, [facility] Conversion Psychologist Educational Cerner at 12/07/2022 6:20 PM CDT documented in this encounter Plan of Treatment Not on file documented as of this encounter Visit Diagnoses Not on filedocumented in this encounter Care Teams Slope Hoist Operator Relationship Specialty Start Date End Date Yuan Mccracken MD [address] [place] [phone] PCP - General Family Medicine 09/23/22 documented as of this encounter
--- OUTSIDE RECORDS SUMMARY | 2025-02-15 10:09 | XMS_ITS | Encounter Summary ---
Author Organization [facility] [employer] In iatives Address [address] [place] [address] Care Team Providers Care Mold Cleaning And Storage Supervisor Name Role Phone uYan Mccracken MD Primary Care Provider [phone] Encounter Details Date Type Department Care Team (Late st Contact Info) Description 01/23/2021 Transcribed Document [facility] [place] [address] [place] [address] ProviderPerry MD [address] [place], [place] [address] Social History Tobacco Use Types Packs/Day Years Used Date Smoking Tobacco: Never Assessed Comments Unknown Sex and Gender Information Value Date Recorded Sex Assigned at Not on file Legal Sex Female 12:32 PM CDT Gender Identity Not on file Sexual Orientation Not on file documented as of this encounter Miscellaneous Notes * Cerner Conversion Note - Perry ProviderMD - 01/23/2021 4:50 PM CDT Treatment Intervention, PT Entered On: 01/29/2021 15:54 EDT Performed On: 01/29/2021 14:34 EDT by CESIA WILSON PT General Information, PT Visit Type, PT [...] edema, wounds Admission Date : 01/16/2021 19:34 Assisted by, PT : analytical lab technician/aide Personal Devices : Personal Devices Dentures, upper Assistive Devices : Assistive Devices No Devices Recorded Isolation Maintained : Contact CESIA WILSON, PT - 01/29/2021 15:30 EDT General Status Patient Received Status : Up in chair Treatment Start Time : 01/29/2021 14:34 EDT Patient Left Status : Up in chair, All needs met and within reach Treatment End Time : 01/29/2021 15:20 EDT Treatment Time : 46 Minute(s) CESIA WILSON PT - 01/29/2021 15:30 EDT Cognitive Treatment, PT Orientation : Oriented x 4 CESIA WILSON, PT - 01/29/2021 15:30 EDT Edu Topics Physical Therapy Education Grid Wound Care : Verbalizes understanding, Returns demonstration, Needs reinforcement CESIA WILSON, PT - 01/29/2021 15:30 EDT Indication Assesessment, PT Physical Therapy Indicated : Yes PT Problem List : Impaired, wound healing CESIA WILSON, PT - 01/29/2021 15:30 EDT Plan of Care, PT PT Tx Plan/Goals Established w Patient : Yes PT Treatments Planned : Wound care CESIA WILSON PT - 01/29/2021 15:30 EDT Short Term Goals Mobility/Bed Mobility STG PT Grid Goal #1 Goal #4 Activity : Supine to sit Assist : Assist, minimal Date to Meet : 01/26/2021 EDT Goal Status : Goal met Date Met : 01/21/2021 EDT Comment : See wound goals for MIST and compression wraps below WILSON, CESIA, PT - 01/29/2021 15:30 EDT WILSON, CESIA, PT - 01/29/2021 15:30 EDT Ambulation STG Grid Goal #1 Device : Walker, front wheel Distance : 50 ft Assist : Assist, minimal Date to Meet : 01/26/2021 EDT Goal Status : Goal met Date Met : 01/29/2021 EDT WILSON, CESIA, PT - 01/29/2021 15:30 EDT Other PT STG Grid Goal #1 Goal #2 Goal : Open area to measure 1.5cmX0.8cm BLE malleoli will be < 29.0cm Date to Meet : 01/28/2021 EDT 01/28/2021 EDT Goal Status : Goal met Progressing, continue Date Met : 01/26/2021 EDT WILSON, CESIA, PT - 01/29/2021 15:30 EDT WILSON, CESIA, PT - 01/29/2021 15:30 EDT Skilled Nursing Goals Mobility/Bed Mobility LTG PT Grid Goal #1 Goal #2 Goal #4 Activity : Supine to sit Sit to stand Assist : Independent, modified Independent, modified Date to Meet : 02/02/2021 EDT 02/02/2021 EDT Goal Status : Goal met Progressing, continue Date Met : 01/29/2021 EDT Comment : See wound goals for MIST and compression wraps below WILSON, CESIA, PT - 01/29/2021 15:30 EDT WILSON, CESIA, PT - 01/29/2021 15:30 EDT WILSON, CESIA, PT - 01/29/2021 15:30 EDT Ambulation LTG Grid Goal #1 Device : Walker, front wheel Distance : 150 ft Assist : Independent, modified Date to Meet : 02/02/2021 EDT Goal Status : Progressing, continue WILSON, CESIA, PT - 01/29/2021 15:30 EDT Other PT LTG Grid Goal #1 Goal #2 Goal #3 Other : Open area to measure 1cmX0.5cm BLE fullest calf will be < 51.0cm Coccyx wound will measure 0.5 x 0.5 cm or less Date to Meet : 02/04/2021 EDT 02/04/2021 EDT 02/09/2021 EDT Goal Status : Goal met Goal met Not met Date Met : 01/26/2021 EDT 01/25/2021 EDT WILSON CESIA, PT - 01/29/2021 15:30 EDT WILSON CESIA, PT - 01/29/2021 15:30 EDT WILSON CESIA, PT - 01/29/2021 15:30 EDT Treatment Note Subjective Comment : pt agreed to BLE compression wrap change Patient's Response to Treatment : Stable Additional Objective Information : pt received sitting in recliner; BLE compression wraps and dressings removed; BLE dressings noted with moderate serous drainage and being careful to remove Aquacel Ag pouring NS from bottle; using NS soaked 4x4 gauze to clean and gently rubbing against dry surface/skin to debride some of the superficial skin layer; pt vocal with R posterior ankle pain LLE again appearing dessicated with plaque-like yellow hyperkeratonic appearance and RLE with overall macerated appearance and red/purple with fluid filled like display with multiple small open ulcers that are still draining and primarily at L lateral posterior ankle BLE circumferential measurements include: LLE RLE MT head: 25.5cm 26.0cm Malleoli: 29.0cm 31.1cm Fullest Calf: 52.2cm 49.5cm 1. Lathered gently Ammonium lactate lotion on BLE 2. Cut to fit Aquacel Ag and placed on locations of drainage on BLE 3. Placed ABD pads (2 per LE) 4. Wrapped LE with Kerlix and then light application of Surepress not to it's full extent Assessment : pt with noted some moderate drainage on dressings but considering that the changes are every other day, this is to be expected and will continue to maintain every other day at this time; however, may consider use of Mepitel for improved pain management Plan for Treatment : cont PTx compression wraps to BLE WILSON, CESIA, PT - 01/29/2021 15:30 EDT Pain Assessment Pain Scaled Used : 0-10 Pain scale Pain Score Pre-Intervention : 0 CESIA WILSON, PT - 01/29/2021 15:30 EDT Image 1 - Images currently included in the form version of this document have not been included in the text rendition version of the form. documented in this encounter Plan of Treatment Not on file documented as of this encounter Visit Diagnoses Not on filedocumented in this encounter Care Teams Mold Cleaning And Storage Supervisor Relationship Specialty Start Date End Date Yuan Mccracken MD [address] [place] [phone] PCP - General Family Medicine 09/23/22 documented as of this encounter
--- OUTSIDE RECORDS SUMMARY | 2025-02-15 10:09 | XMS_ITS | Encounter Summary ---
Author Organization [facility] [employer] Address [address] [place] [address] Care Team Providers Care Survey Supervisor Name Role Phone Yuan Mccracken MD Primary Care Provider [phone] Encounter Details Date Type Department Care Team (Late st Contact Info) Description 01/23/2021 Transcribed Document [facility] [place] [address] [place] [address] ProviderPerry MD [address], [place] [id number] Social History Tobacco Use Types Packs/Day Years Used Date Smoking Tobacco: Never Assessed Comments Unknown Sex and Gender Information Value Date Recorded Sex Assigned at Not on file Legal Sex Female 12:32 PM CDT Gender Identity Not on file Sexual Orientation Not on file documented as of this encounter Miscellaneous Notes * Cerner Conversion Note - Perry Nunes MD - 01/23/2021 5:00 AM CDT Chart Check - Review Order Profile Entered On: 01/23/2021 6:46 EDT Performed On: 01/23/2021 5:00 EDT by Karina Regalado RN-PATIENT CARE BEDSIDE NON-EXEMPT Chart Check Powerplans Initiated/Discontinued as Appropriate : Yes All Active Orders Reviewed : Yes Karina Regalado RN-PATIENT CARE BEDSIDE NON-EXEMPT - 01/23/2021 6:46 EDT documented in this encounter Plan of Treatment Not on file documented as of this encounter Visit Diagnoses Not on filedocumented in this encounter Care Teams Survey Supervisor Relationship Specialty Start Date End Date Yuan Mccracken MD [address] [place] [phone] PCP - General Family Medicine 09/23/22 documented as of this encounter
--- OUTSIDE RECORDS SUMMARY | 2025-02-15 10:09 | XMS_ITS | Encounter Summary ---
Author Organization [facility] [employer] Address [address] [place] [address] Care Team Providers Care Java Jsf Developer Name Role Phone Yuan Mccracken MD Primary Care Provider [phone] Encounter Details Date Type Department Care Team (Late st Contact Info) Description 01/23/2021 Transcribed Document [facility] [place] [address] [place] [address] ProviderPerry MD [address] [place], [place] [address] Social History Tobacco Use Types Packs/Day Years Used Date Smoking Tobacco: Never Assessed Comments Unknown Sex and Gender Information Value Date Recorded Sex Assigned at Not on file Legal Sex Female 12:32 PM CDT Gender Identity Not on file Sexual Orientation Not on file documented as of this encounter Miscellaneous Notes * Cerner Conversion Note - Perry ProviderMD - 01/23/2021 9:55 AM CDT Treatment Intervention, PT Entered On: 01/23/2021 11:50 EDT Performed On: 01/23/2021 9:55 EDT by MISSY SHOEMAKER PTA General Information, PT Visit Type, PT [...] on coccyx Admission Date : 01/16/2021 19:34 Personal Devices : Personal Devices Dentures, upper Assistive Devices : Assistive Devices No Devices Recorded Isolation Maintained : Contact MISSY SHOEMAKER PTA - 01/23/2021 11:46 EDT General Status Patient Received Status : Supine in bed Treatment Start Time : 01/23/2021 9:35 EDT Patient Left Status : Supine in bed, All needs met and within reach RN/PCT Informed Comment : RN Yenny ok'd to treat. Treatment End Time : 01/23/2021 9:55 EDT Treatment Time : 20 Minute(s) MISSY SHOEMAKER PTA - 01/23/2021 11:46 EDT Functional Mobility Mobility Grid Bed Roll Left : Rehab Minimal assistance Bed Roll Right : Rehab Minimal assistance MISSY SHOEMAKER PTA - 01/23/2021 11:46 EDT Bed Comment : patient was soiled upon rolling and was cleaned up to perfrom wound care ; nursing call in after due to patient requesting to get to BSC and linens needing changed MISSY SHOEMAKER PTA - 01/23/2021 11:46 EDT Cognitive Treatment, PT Orientation : Oriented x 4 MISSY SHOEMAKER PTA - 01/23/2021 11:46 EDT Edu Topics Physical Therapy Education Grid Role of Physical Therapy : Returns demonstration Wound Care : Returns demonstration, Needs further teaching MISSY SHOEMAKER PTA - 01/23/2021 11:46 EDT Indication Assesessment, PT Physical Therapy Indicated : Yes MISSY SHOEMAKER PTA - 01/23/2021 11:46 EDT Plan of Care, PT PT Tx Plan/Goals Established w Patient : Yes MISSY SHOEMAKER PTA - 01/23/2021 11:46 EDT Short Term Goals Mobility/Bed Mobility STG PT Grid Goal #1 Activity : Supine to sit Assist : Assist, minimal Date to Meet : 01/26/2021 EDT Goal Status : Goal met Date Met : 01/21/2021 EDT MISSY SHOEMAKER PTA - 01/23/2021 11:46 EDT Ambulation STG Grid Goal #1 Device : Walker, front wheel Distance : 50 ft Assist : Assist, minimal Date to Meet : 01/26/2021 EDT Goal Status : Intial Goal MISSY SHOEMAKER PTA - 01/23/2021 11:46 EDT Other PT STG Grid Goal #1 Goal : Open area to measure 1.5cmX0.8cm Date to Meet : 01/28/2021 EDT Goal Status : Progressing, continue MISSY SHOEMAKER PTA - 01/23/2021 11:46 EDT Senior Living Goals Mobility/Bed Mobility LTG PT Grid Goal #1 Goal #2 Activity : Supine to sit Sit to stand Assist : Independent, modified Independent, modified Date to Meet : 02/02/2021 EDT 02/02/2021 EDT Goal Status : Progressing, continue Progressing, continue MISSY SHOEMAKER PTA - 01/23/2021 11:46 EDT MISSY SHOEMAKER PTA - 01/23/2021 11:46 EDT Ambulation LTG Grid Goal #1 Device : Walker, front wheel Distance : 150 ft Assist : Independent, modified Date to Meet : 02/02/2021 EDT Goal Status : Progressing, continue MISSY SHOEMAKER PTA - 01/23/2021 11:46 EDT Other PT LTG Grid Goal #1 Other : Open area to measure 1cmX0.5cm Date to Meet : 02/04/2021 EDT Goal Status : Progressing, continue MISSY SHOEMAKER PTA - 01/23/2021 11:46 EDT Treatment Note Subjective Comment : Patient agrees to treat Additional Objective Information : patient rolled to the right ; dressing removed ; wound along crease of buttox ; wound measures 3.4cm x 0.4cm and open with moist pink/ slough tissue ; Mist x 3min ; patted dry with 4x4 gauze and covered with Small sacral foam dressing Assessment : Patient has not yet met STG for wound care and would benefit from continued mist therapy Plan for Treatment : Continue per POC. MISSY SHOEMAKER PTA - 01/23/2021 11:46 EDT Pain Assessment Pain Comment : no complaints of pain noted MISSY SHOEMAKER PTA - 01/23/2021 11:46 EDT Image 1 - Images currently included in the form version of this document have not been included in the text rendition version of the form. Anticipated Discharge Needs, OT/PT Anticipated Discharge to : Unit, rehabilitation, Unit, assisted MISSY SHOEMAKER PTA - 01/23/2021 11:46 EDT documented in this encounter Plan of Treatment Not on file documented as of this encounter Visit Diagnoses Not on filedocumented in this encounter Care Teams Java Jsf Developer Relationship Specialty Start Date End Date Yuan Mccracken MD [address] [place] [phone] PCP - General Family Medicine 09/23/22 documented as of this encounter
--- OUTSIDE RECORDS SUMMARY | 2025-02-15 10:09 | XMS_ITS | Encounter Summary ---
Author Organization [employer] Init [employer]atives Address [address] [place] [address] Care Team Providers Care Plugger Name Role Phone Yuan Mccracken MD Primary Care Provider [phone] Encounter Details Date Type Department Care Team (Late st Contact Info) Description 01/19/2021 Transcribed Document [facility] [place] [address] [place] [address] ProviderPerry MD [address], [place] [id number] Social History Tobacco Use Types Packs/Day Years Used Date Smoking Tobacco: Never Assessed Comments Unknown Sex and Gender Information Value Date Recorded Sex Assigned at Not on file Legal Sex Female 12:32 PM CDT Gender Identity Not on file Sexual Orientation Not on file documented as of this encounter Miscellaneous Notes * Cerner Conversion Note - Perry Nunes MD - 01/19/2021 11:51 AM CDT Patient: CHANI VELASQUEZ Age: 60 years Sex: Female : 1960 Associated Diagnoses: None Author: MEG CARRASCO MD-NEP Subjective Stable overnight. Continues to improve. Objective VS/Measurements Vitals Signs (last 24 hrs) Last Charted Minimum Maximum Temp 99.1 (JANUARY 19 08:00) 98.0 (JANUARY 19 04:00) 99 (JANUARY 18 16:00) Mon HR 79 (JANUARY 19 09:00) 63 (JANUARY 19 05:00) 81 (JANUARY 19 00:00) Resp Rate H 33 (JANUARY 19 09:00) H 21 (JANUARY 19 05:00) H 59 (JANUARY 18 20:00) SBP H 162 (JANUARY 19 09:00) 130 (JANUARY 18 18:00) H 171 (JANUARY 19 08:00) DBP 75 (JANUARY 19 09:00) L 59 (JANUARY 18 18:00) H 102 (JANUARY 18 13:00) MAP 108 (JANUARY 19 09:00) 85 (JANUARY 18 18:00) 125 (JANUARY 18 13:00) SpO2 97 (JANUARY 19 09:00) 95 (JANUARY 18 16:00) 100 (JANUARY 18 19:00) Intake & Output Totals Last 24 Hours (7a-7a) Intake (35 Events) Continuous Infusions (1771.25 mL) Medications (450.1 mL) Oral Intake (600 mL) Output (11 Events) Coulter Catheter (2730 mL) Input Total: 2821.35 mL Output Total: 2730 mL Balance: 91.35 mL Physical exam contact may be limited [...] Labs (Last four charted values) WBC H 13.0 (JANUARY 19) H 18.1 (JANUARY 17) H 20.7 (JANUARY 16) H 21.7 (JANUARY 16) HB L 8.4 (JANUARY 19) L 9.0 (JANUARY 17) L 10.3 (JANUARY 16) 11.3 (JANUARY 16) HCT L 26.2 (JANUARY 19) L 27.0 (JANUARY 17) L 31.5 (JANUARY 16) 35.6 (JANUARY 16) Plt 266 (JANUARY 19) 292 (JANUARY 17) 350 (JANUARY 16) H 389 (JANUARY 16) Na 141 (JANUARY 19) 141 (JANUARY 18) 141 (JANUARY 18) 138 (JANUARY 17) K 3.5 (JANUARY 19) L 3.1 (JANUARY 18) C 2.7 (JANUARY 18) L 3.3 (JANUARY 17) Cl 107 (JANUARY 19) 105 (JANUARY 18) 105 (JANUARY 18) 105 (JANUARY 17) CO2 29 (JANUARY 19) 29 (JANUARY 18) 26 (JANUARY 18) L 18 (JANUARY 17) BUN H 70 (JANUARY 19) C 89 (JANUARY 18) C 94 (JANUARY 18) C 124 (JANUARY 17) Cr H 1.90 (JANUARY 19) H 2.50 (JANUARY 18) H 2.80 (JANUARY 18) H 4.40 (JANUARY 17) Glu R H 139 (JANUARY 19) H 139 (JANUARY 18) H 123 (JANUARY 18) H 158 (JANUARY 17) Ca L 7.3 (JANUARY 19) L 7.2 (JANUARY 18) L 7.5 (JANUARY 18) L 7.8 (JANUARY 17) Lactic 2.0 (JANUARY 19) C 2.5 (JANUARY 17) C 2.3 (JANUARY 17) C 2.6 (JANUARY 16) AST H 50 (JANUARY 19) 28 (JANUARY 16) ALT 36 (JANUARY 19) 23 (JANUARY 16) ALK P 86 (JANUARY 19) 128 (JANUARY 16) T Bili 0.5 (JANUARY 19) 0.5 (JANUARY 16) PTN L 6.2 (JANUARY 19) H 9.3 (JANUARY 16) ALB L 1.4 (JANUARY 19) L 1.4 (JANUARY 18) L 2.1 (JANUARY 16) Troponin <0.015 (JANUARY 16) Impression and Plan ARF: BUN/creatinine improving further with good urine output. Initially creatinine 6.5 on presentation cellulitis. Baseline creatinine unknown. Renal ultrasound shows mild left hydro with CT scan showing obstructive 6 mm stone. Patient improving with fluids and supportive care. For now continue to monitor for further renal recovery. No dialysis at this time. Left ureteral obstruction: Mild hydronephrosis seen with UPJ stone.. May need urology to evaluate. HTN: Blood pressure stable but elevated. Monitor for now. Metabolic acidosis: Due to renal failure. Improving with bicarb drip. Can transition to nonbicarbonated fluids Hypokalemia: Potassium still quite low. Replace aggressively. Potassium was elevated 6.8. Dropped with correction of acidosis on bicarb drip with improving renal function. Hyperphosphatemia: Due to renal failure. Monitor for improvement with renal recovery. Volume: Stable for now. Cellulitis: On antibiotics. High risk and complexity patient documented in this encounter Plan of Treatment Not on file documented as of this encounter Visit Diagnoses Not on filedocumented in this encounter Care Teams Plugger Relationship Specialty Start Date End Date Yuan Mccracken MD [address] [place] [phone] PCP - General Family Medicine 09/23/22 documented as of this encounter
--- OUTSIDE RECORDS SUMMARY | 2025-02-15 10:09 | XMS_ITS | Encounter Summary ---
Author Organization [facility] [employer] Address [address] [place] [address] Care Team Providers Care Funeral Director/Embalmer/Owner Name Role Phone Yuan Mccracken MD Primary Care Provider [phone] Encounter Details Date Type Department Care Team (Late st Contact Info) Description 01/30/2021 Transcribed Document [facility] [place] [address] [place] [address] ProviderPerry MD [address], [place] [id number] Social History Tobacco Use Types Packs/Day Years Used Date Smoking Tobacco: Never Assessed Comments Unknown Sex and Gender Information Value Date Recorded Sex Assigned at Not on file Legal Sex Female 12:32 PM CDT Gender Identity Not on file Sexual Orientation Not on file documented as of this encounter Miscellaneous Notes * Cerner Conversion Note - Perry Nunes MD - 01/30/2021 5:00 AM CDT Chart Check - Review Order Profile Entered On: 01/30/2021 4:25 EDT Performed On: 01/30/2021 5:00 EDT by Karla Barakat Non Emp RN Chart Check All Active Orders Reviewed : Yes Karla Barakat Non Emp RN - 01/30/2021 4:25 EDT Electronically signed by Gayle Laguerre Conversion Cement Boat And Barge Loader Cerner at 12/07/2022 6:25 PM CDT documented in this encounter Plan of Treatment Not on file documented as of this encounter Visit Diagnoses Not on filedocumented in this encounter Care Teams Funeral Director/Embalmer/Owner Relationship Specialty Start Date End Date Yuan Mccracken MD [address] [place] [phone] PCP - General Family Medicine 09/23/22 documented as of this encounter
--- OUTSIDE RECORDS SUMMARY | 2025-02-15 10:09 | XMS_ITS | Encounter Summary ---
Author Organization [facility] Init [employer]atives Address [address] [place] [address] Care Team Providers Care Aircraft Engine Mechanic Name Role Phone Yuan Mcrcacken MD Primary Care Provider [phone] Encounter Details Date Type Department Care Team (Late st Contact Info) Description 01/30/2021 Transcribed Document [facility] [place] [address] [place] [address] ProviderPerry MD [address] [place], [place] [address] Social History Tobacco Use Types Packs/Day Years Used Date Smoking Tobacco: Never Assessed Comments Unknown Sex and Gender Information Value Date Recorded Sex Assigned at Not on file Legal Sex Female 12:32 PM CDT Gender Identity Not on file Sexual Orientation Not on file documented as of this encounter Miscellaneous Notes * Cerner Conversion Note - Perry Nunes MD - 01/30/2021 10:07 AM CDT UM Authorization Entered On: 01/30/2021 10:08 EDT Performed On: 01/30/2021 10:07 EDT by DWIGHT PERALTA, RN-Utilization Review Primary Insurance Authorization Authorization and Policy Numbers : Insurance 1 Health Plan: [facility] Policy Number: [id number] Authorization Number: Insurance Primary Name : [facility] MEDICAID [id number] Authorization Status-Primary : Awaiting callback Reference Number-Primary : Pend ref # [id number]. Authorized Service Begin Date-Primary : 01/16/2021 EDT Authorization Comments-Primary : rec'd call from [facility] medicaid- they did receive clinicals and will call back with a decision. Historical Authorization Comments-Primary : Comment 1: vm to [facility] medicaid [id number] (covering for Brittney Kelly) asking if she rec'd clinical info faxed on 01/29/21. await call back (DWIGHT PERALTA, RN-Utilization Review 01/30/2021 09:26) Comment 2: CM gave a medicaid ID no. Per [facility] pt has [facility]. Notified [facility] clinicals submitted via [facility] portal and faxed via [employer] from 01/16 to 01/29 for Ip approval (CARMEN MARLOW RN 01/29/2021 14:06) Comment 3: MEDICAID PENDING (DWIGHT PERALTA, RN-Utilization Review 01/28/2021 08:04) Comment 4: MEDICAID PENDING (DWIGHT PERALTA, RN-Utilization Review 01/27/2021 08:41) Comment 5: MEDICAID PENDING (DWIGHT PERALTA, RN-Utilization Review 01/26/2021 08:45) Comment 6: MEDICAID PENDING (DWIGHT PERALTA, RN-Utilization Review 01/23/2021 09:42) Comment 7: SELF PAY (DWIGHT PERALTA, RN-Utilization Review 01/22/2021 08:29) Comment 8: SELF PAY (DWIGHT EPRALTA, RN-Utilization Review 01/21/2021 08:19) Comment 9: Self pay at the time of review (CARMEN MARLOW RN 01/20/2021 13:51) DWIGHT PERALTA, RN-Utilization Review - 01/30/2021 10:07 EDT documented in this encounter Plan of Treatment Not on file documented as of this encounter Visit Diagnoses Not on filedocumented in this encounter Care Teams Aircraft Engine Mechanic Relationship Specialty Start Date End Date Yuan Mccracken MD [address] [place] [phone] PCP - General Family Medicine 09/23/22 documented as of this encounter
--- OUTSIDE RECORDS SUMMARY | 2025-02-15 10:09 | XMS_ITS | Encounter Summary ---
Author Organization [employer] Address [address] [place] [address] Care Team Providers Care Adult Educator Name Role Phone Yuan Mccracken MD Primary Care Provider [phone] Encounter Details Date Type Department Care Team (Late st Contact Info) Description 01/23/2021 Transcribed Document [facility] [place] Family [place] [address] ProviderPerry MD [address] [place], [place] [id number] Social History Tobacco Use Types Packs/Day Years Used Date Smoking Tobacco: Never Assessed Comments Unknown Sex and Gender Information Value Date Recorded Sex Assigned at Not on file Legal Sex Female 12:32 PM CDT Gender Identity Not on file Sexual Orientation Not on file documented as of this encounter Miscellaneous Notes * Cerner Conversion Note - Perry Nunes MD - 01/23/2021 6:07 PM CDT Patient: CHANI VELASQUEZ Age: 60 years Sex: Female : 1960 Associated Diagnoses: None Author: Grupo Shannon, Pharmacist-Resident 60yo female with RLE cellulitis starting on vancomycin. Rx asked to follow for vancomycin dosing. Current ABX 1. Vancomycin per RX 2. Doxycycline 100mg PO BID 3. Zosyn 3.375g IV q6h Vitals Signs (last 24 hrs) Last Charted Minimum Maximum Temp 99.1 (TOM 04 16:37) 98 (TOM 04 05:34) 99.1 (TOM 04 16:37) Apical HR 68 (TOM 04 09:15) 68 (TOM 04 09:15) 76 (TOM 03 21:41) Mon HR 32 (TOM 04 16:37) 32 (TOM 04 16:37) 80 (TOM 03 18:32) Resp Rate 20 (TOM 04 16:37) 16 (TOM 04 11:12) H 24 (TOM 03 21:55) SBP 121 (TOM 04 16:37) 118 (TOM 04 05:34) 133 (TOM 03 21:55) DBP 80 (TOM 04 16:37) L 59 (TOM 04 05:34) 80 (TOM 04 16:37) MAP 89 (TOM 04 16:37) 85 (TOM 04 11:12) 99 (TOM 03 21:55) SpO2 98 (TOM 04 16:37) L 93 (TOM 04 05:34) 100 (TOM 03 18:32) Labs: Labs (Last four charted values) WBC H 14.7 (TOM 04) H 16.9 (TOM 03) H 20.0 (TOM 02) H 16.5 (TOM 01) HB L 8.8 (TOM 04) L 8.8 (TOM 03) L 8.7 (TOM 02) L 9.2 (TOM 01) HCT L 29.8 (TOM 04) L 29.9 (TOM 03) L 28.2 (TOM 02) L 29.6 (TOM 01) Plt H 378 (TOM 04) 341 (TOM 03) 322 (TOM 02) 305 (TOM 01) Na 137 (TOM 04) 136 (TOM 03) 137 (TOM 02) 139 (TOM 01) K 4.5 (TOM 04) 3.7 (TOM 03) 3.9 (TOM 02) L 3.2 (TOM 02) Cl 108 (TOM 04) 105 (TOM 03) 103 (TOM 02) 105 (TOM 01) CO2 24 (TOM 04) 27 (TOM 03) 29 (OTM 02) 26 (TOM 01) BUN H 29 (TOM 04) H 32 (TOM 03) H 34 (TOM 02) H 48 (TOM 01) Cr H 1.20 (TOM 04) H 1.30 (TOM 03) H 1.40 (TOM 02) H 1.60 (TOM 01) Glu R 98 (TOM 04) H 121 (TOM 03) H 111 (JAN 21) H 125 (JAN 20) Ca L 8.0 (JAN 23) L 7.9 (JAN 22) L 7.2 (JAN 21) L 7.5 (JAN 20) Lactic 2.0 (JANUARY 19) C 2.5 (JANUARY [...] Totals Last 24 Hours (7a-7a) Input Total: 900 mL Output Total: 650 mL Balance: 250 mL C/x -01/18 Sputum - Corynebacterium Vanc Levels 01/23 @1704 =14.4 (drawn ~1 late, on vanc 1750mg q24h) A/P 1. Level back therapeutic at 14.4, will continue vancomycin 1750mg IV q24h to target a trough of 10-20 2. Trough level prior to dose on 01/26@ 1500, Hold if >21 3. Other meds adjusted appropriately at this time, will monitor for changes. Rx will follow, Grupo Shannon, FrankyD PGY1 Relocation Services Specialist Pager: [phone], Ext. [phone] Electronically signed by [facility] Conversion Hydrometallurgical Engineer Cerner at 12/07/2022 6:05 PM CDT documented in this encounter Plan of Treatment Not on file documented as of this encounter Visit Diagnoses Not on filedocumented in this encounter Care Teams Adult Educator Relationship Specialty Start Date End Date Yuan Mccracken MD [facility] [place] [address] PCP - General Family Medicine 09/23/22 documented as of this encounter
--- OUTSIDE RECORDS SUMMARY | 2025-02-15 10:09 | XMS_ITS | Encounter Summary ---
Author Organization [facility] In [facility] Address [address] [place] [address] Care Team Providers Care Silver Solderer Name Role Phone Yuan Mccracken MD Primary Care Provider [phone] Encounter Details Date Type Department Care Team (Late st Contact Info) Description 01/25/2021 Transcribed Document [facility] [place] [address] [place] [address] ProviderPerry MD [address] [place], [place] [address] Social History Tobacco Use Types Packs/Day Years Used Date Smoking Tobacco: Never Assessed Comments Unknown Sex and Gender Information Value Date Recorded Sex Assigned at Not on file Legal Sex Female 12:32 PM CDT Gender Identity Not on file Sexual Orientation Not on file documented as of this encounter Miscellaneous Notes * Cerner Conversion Note - Perry Nunes MD - 01/25/2021 5:00 AM CDT Chart Check - Review Order Profile Entered On: 01/25/2021 5:10 EDT Performed On: 01/25/2021 5:00 EDT by Marcella Hernandez RN-TRAVELER Chart Check Powerplans Initiated/Discontinued as Appropriate : Yes All Active Orders Reviewed : Yes Marcella Hernandez RN-TRAVELER - 01/25/2021 5:10 EDT documented in this encounter Plan of Treatment Not on file documented as of this encounter Visit Diagnoses Not on filedocumented in this encounter Care Teams Silver Solderer Relationship Specialty Start Date End Date Yuan Mccracken MD [address] [place] [address] PCP - General Family Medicine 09/23/22 documented as of this encounter
--- OUTSIDE RECORDS SUMMARY | 2025-02-15 10:09 | XMS_ITS | Encounter Summary ---
Author Organization [facility] Init [facility]atives Address [address] [place] [address] Care Team Providers Care Hydroelectric Plant Electrical Engineer Name Role Phone Yuan Mccracken MD Primary Care Provider [phone] Encounter Details Date Type Department Care Team (Late st Contact Info) Description 01/30/2021 Transcribed Document [facility] [place] [address] [place] [address] ProviderPerry MD [address] [place], [place] [address] Social History Tobacco Use Types Packs/Day Years Used Date Smoking Tobacco: Never Assessed Comments Unknown Sex and Gender Information Value Date Recorded Sex Assigned at Not on file Legal Sex Female 12:32 PM CDT Gender Identity Not on file Sexual Orientation Not on file documented as of this encounter Miscellaneous Notes * Cerner Conversion Note - Perry ProviderMD - 01/30/2021 11:26 AM CDT Attempt to Treat, PT Entered On: 01/30/2021 12:14 EDT Performed On: 01/30/2021 11:26 EDT by CESIA WILSON PT Attempt to Treat Unable to Treat Due To : Patient on hold Inability to Treat Comment : BLE Surepress still remains intact; however, anticipated disch tomorrow in am 612 and offered if needed to be changed today; pt stating will await disch tomorrow and anticipate BLE Surepress/dressing change once arriving to new faciltiy/rehab CESIA WILSON PT - 01/30/2021 12:13 EDT documented in this encounter Plan of Treatment Not on file documented as of this encounter Visit Diagnoses Not on filedocumented in this encounter Care Teams Hydroelectric Plant Electrical Engineer Relationship Specialty Start Date End Date Yuan Mccracken MD [address] [place] [address] PCP - General Family Medicine 09/23/22 documented as of this encounter
--- OUTSIDE RECORDS SUMMARY | 2025-02-15 10:09 | XMS_ITS | Encounter Summary ---
Author Organization [facility] [facility] Address [address] [facility] [place] [place] [address] Care Team Providers Care Railway Traction Line Worker Name Role Phone Yuan Mccracken MD Primary Care Provider [phone] Encounter Details Date Type Department Care Team (Late st Contact Info) Description 02/06/2021 Transcribed Document [facility] [place] [facility] [place] [address] ProviderPerry MD [address] [place], [place] [address] Social History Tobacco Use Types Packs/Day Years Used Date Smoking Tobacco: Never Assessed Comments Unknown Sex and Gender Information Value Date Recorded Sex Assigned at Not on file Legal Sex Female 12:32 PM CDT Gender Identity Not on file Sexual Orientation Not on file documented as of this encounter Miscellaneous Notes * Cerner Conversion Note - Perry Nunes MD - 02/06/2021 6:43 PM CDT Patient Education Materials Follows:Disease Cellulitis, Adult Cellulitis is a skin infection. The infected area is often warm, red, swollen, and sore. It occurs most often in the arms and lower legs. It is very important to get treated for this condition. What are the causes? This condition is caused by bacteria. The bacteria enter through a break in the skin, such as a cut, burn, insect bite, open sore, or crack. What increases the risk? This condition is more likely to occur in people who: ??? Have a weak body defense system (immune system). ??? Have open cuts, presley, bites, or scrapes on the skin. ??? Are older than 60 years of age. ??? Have a blood sugar problem (diabetes). ??? Have a long-lasting (chronic) liver disease (cirrhosis) or kidney disease. ??? Are very overweight (obese). ??? Have a skin problem, such as: ? Itchy rash (eczema). ? Slow movement of blood in the veins (venous stasis). ? Fluid buildup below the skin (edema). ??? Have been treated with high-energy rays (radiation). ??? Use IV drugs. What are the signs or symptoms? Symptoms of this condition include: ??? Skin that is: ? Red. ? Streaking. ? Spotting. ? Swollen. ? Sore or painful when you touch it. ? Warm. ??? A fever. ??? Chills. ??? Blisters. How is this diagnosed? This condition is diagnosed based on: ??? Medical history. ??? Physical exam. ??? Blood tests. ??? Imaging tests. How is this treated? Treatment for this condition may include: ??? Medicines to treat infections or allergies. ??? Home care, such as: ? Rest. ? Placing cold or warm cloths (compresses) on the skin. ??? Hospital care, if the condition is very bad. Follow these instructions at home: Medicines ??? Take xnlg-vkl-wfswhga and prescription medicines only as told by your doctor. ??? If you were prescribed an antibiotic medicine, take it as told by your doctor. Do not stop taking it even if you start to feel better. General instructions ??? Drink enough fluid to keep your pee (urine) pale yellow. ??? Do not touch or rub the infected area. ??? Raise (elevate) the infected area above the level of your heart while you are sitting or lying down. ??? Place cold or warm cloths on the area as told by your doctor. ??? Keep all follow-up visits as told by your doctor. This is important. Contact a doctor if: ??? You have a fever. ??? You do not start to get better after 1?2 days of treatment. ??? Your bone or joint under the infected area starts to hurt after the skin has healed. ??? Your infection comes back. This can happen in the same area or another area. ??? You have a swollen bump in the area. ??? You have new symptoms. ??? You feel ill and have muscle aches and pains. Get help right away if: ??? Your symptoms get worse. ??? You feel very sleepy. ??? You throw up (vomit) or have watery poop (diarrhea) for a long time. ??? You see red streaks coming from the area. ??? Your red area gets larger. ??? Your red area turns dark in color. These symptoms may represent a serious problem that is an emergency. Do not wait to see if the symptoms will go away. Get medical help right away. Call your local emergency services (911 in the [place] Do not drive yourself to the hospital. Summary ??? Cellulitis is a skin infection. The area is often warm, red, swollen, and sore. ??? This condition is treated with medicines, rest, and cold and warm cloths. ??? Take all medicines only as told by your doctor. ??? Tell your doctor if symptoms do not start to get better after 1?2 days of treatment. This information is not intended to replace advice given to you by your health care provider. Make sure you discuss any questions you have with your health care provider. Document Revised: 12/28/2018 Document Reviewed: 12/28/2018 Nano ePrint Patient Education ? 2020 [employer]. documented in this encounter Plan of Treatment Not on file documented as of this encounter Visit Diagnoses Not on filedocumented in this encounter Care Teams Railway Traction Line Worker Relationship Specialty Start Date End Date Yuan Mccracken MD [facility] [address] PCP - General Family Medicine 09/23/22 documented as of this encounter
--- OUTSIDE RECORDS SUMMARY | 2025-02-15 10:09 | XMS_ITS | Encounter Summary ---
Author Organization [facility] In [facility] Address [address] [place] [address] Care Team Providers Care Electrical Prospecting Supervisor Name Role Phone Yuan Mccracken MD Primary Care Provider [phone] Encounter Details Date Type Department Care Team (Late st Contact Info) Description 01/18/2021 Transcribed Document [facility] [address] [place] [address] [place] [address] [place] [address] [address] [place] [id number] Social History Tobacco Use Types Packs/Day Years Used Date Smoking Tobacco: Never Assessed Comments Unknown Sex and Gender Information Value Date Recorded Sex Assigned at Not on file Legal Sex Female 12:32 PM CDT Gender Identity Not on file Sexual Orientation Not on file documented as of this encounter Miscellaneous Notes * Cerner Conversion Note - Tyler Recio MD - 01/18/2021 1:56 PM EDT Patient: CHANI VELASQUEZ Age: 60 Years Sex: Female : 1960 Subjective She is having some increased dyspnea this morning, waiting on neb tx, wheezy. States she is otherwise doing ok, no new concerns/complaints, no questions. Vital Signs T: 36.9 ??C TMIN: 36.4 ??C TMAX: 37.1 ??C HR: 74(Monitored) RR: 24 BP: 163/72 SpO2: 99% Oxygen Settings (Last) Oxygen Therapy Mode: Nasal cannula (01/18/21 09:38:00) Oxygen Flow Rate: 4 Liter/Min (01/18/21 09:38:00) Intake & Output Totals Last 24 Hours (7a-7a) Input Total: 6177.9 mL Output Total: 3025 mL Balance: 3152.9 mL Physical Exam General:[Alert and oriented no [...] scales Psychiatric: Cooperative, appropriate mood and affect [1] Assessment/Plan #Life threatening hyperkalemia IV insulin, IV dextrose, IV calcium gluconate Nephrology consult recheck in am -improved morning recheck 5.0 then 3.3-nephrology aware replenished -resolved continuing to monitor #Severe metabolic acidosis Received IV Sodium bicarbonate [...] on admission, neph following, continuing nonbicarbonated IVF Hypokalemia developed as creat improving, replacing as needed Left hydronephrosis CT: Mild left hydronephrosis from a 5 mm stone in the distal ureter. There is a more proximal nonobstructing 3 mm stone in the distal ureter. -urology consulted, asymptomatic ? Mobitz type 1 on EKG/PAC/PVC -cards consult-no concern disagreed with arrhythmia having PAC and PVC, will continue to watch, cards signed off #Lower ext cellulitis IV Rocephin -R>L US to eval for DVT -slight improvement in LE swelling and redness today Dyspnea chest X ray and Echo breathing treatment as needed ECHO: Normal sized left ventricle. Mild left ventricular hypertrophy. Visually estimated ejection fraction 55% +/- 5%. Normal systolic function. No hemodynamically significant valvular heart disease CXR: Opacity as above. Probably secondary to pneumonia; added doxy and incentive spirometry -pt tachypneic and wheezing, improved with neb tx solumedrol, CXR no change Pneumonia CXR: Opacity as above. Probably secondary to pneumonia; added doxy and incentive spirometry add sputum culture Right lung nodule on CT scan repeat CT scan six months per RAD to be done via primary care Cholelithiasis per CT scan asymptomatic, primary care follow up #obesity Complicate clinical aspect of care DVT Prophylaxis Heparin Full code Time spent 40 minutes Impression: . VTE Prophylaxis - Medical Heparin 5,000 Units, SubCutaneous, Inj, Q8H, Routine, Start 01/17/21 8:10:00 EDT, 01/17/21 8:10:00 EDT (PRINCESS [facility]IVERA) Medications cefTRIAXone doxycycline + Sodium Chloride 0.9% intravenous solution 100 mL Dulcolax Laxative, 5 mg= 1 Tab, Oral, Daily, PRN DuoNeb 0.5 mg-2.5 mg/3 mL inhalation solution, 3 mL, Nebulized Inhalation , RT_Q6H, PRN heparin, 5000 Units= 1 mL, SubCutaneous, Q8H Lactated Ringers Injection intravenous solution 1,000 mL, 1000 mL, IntraVENous MiraLax, 17 Gram= 1 Packet, Oral, Daily, PRN nystatin, [id number] Units= 5 mL, Swish and Spit, QID Pepcid, 20 mg= 1 Tab, Oral, Q12H potassium bicarbonate 20 mEq oral tablet, effervescent, 40 mEq= 2 Tab, Oral, BID Tylenol, 650 mg= 2 Tab, Oral, Q4H, PRN Zofran, 4 mg= 2 mL, IV Push, Q4H, PRN Lab Results Test Name Test Result Date/Time pH Art 7.47 (High) 01/18/2021 11:37 EDT pCO2 Art 36.8 mmHg 01/18/2021 11:37 EDT pO2 Art 96.1 mmHg 01/18/2021 11:37 EDT HCO3 Art 27.0 mmol/L (High) 01/18/2021 11:37 EDT BE Art 3.4 mmol/L (High) 01/18/2021 11:37 EDT sO2 Art 97.3 % 01/18/2021 11:37 EDT tHb Art 12.9 Gram/dL 01/18/2021 11:37 EDT FHHb 2.7 % 01/18/2021 11:37 EDT ctO2 17.5 mmol/L 01/18/2021 11:37 EDT Delivery Device Type Art Cannula 01/18/2021 11:37 EDT Temperature, F Art 98.6 Deg F 01/18/2021 11:37 EDT Art Blood Gas (ABG) Site Right Radial 01/18/2021 11:37 EDT Acceptable Conrado's Test Art Acceptable 01/18/2021 11:37 EDT Ventilator Mode Art N/A 01/18/2021 11:37 EDT Oxygen Flow Rate Art 3.5 Liter 01/18/2021 11:37 EDT Comment Art supine 01/18/2021 11:37 EDT ABG Num of Draw Attempts 1 01/18/2021 11:37 EDT Sodium Level 141 mmol/L 01/18/2021 11:30 EDT Sodium Level 141 mmol/L 01/18/2021 03:27 EDT Potassium Level 3.1 mmol/L (Low) 01/18/2021 11:30 EDT Potassium Level 2.7 mmol/L (Critical) 01/18/2021 03:27 EDT Chloride Level 105 mmol/L 01/18/2021 11:30 EDT Chloride Level 105 mmol/L 01/18/2021 03:27 EDT Carbon Dioxide Level 29 mmol/L 01/18/2021 11:30 EDT Carbon Dioxide Level 26 mmol/L 01/18/2021 03:27 EDT Anion Gap 10 01/18/2021 11:30 EDT Anion Gap 13 01/18/2021 03:27 EDT Glucose Level 139 mg/dL (High) 01/18/2021 11:30 EDT Glucose Level 123 mg/dL (High) 01/18/2021 03:27 EDT Blood Urea Nitrogen 89 mg/dL (Critical) 01/18/2021 11:30 EDT Blood Urea Nitrogen 94 mg/dL (Critical) 01/18/2021 03:27 EDT Creatinine Level 2.50 mg/dL (High) 01/18/2021 11:30 EDT Creatinine Level 2.80 mg/dL (High) 01/18/2021 03:27 EDT eGFR 24 mL/min/1.73m2 (Low) 01/18/2021 11:30 EDT eGFR 21 mL/min/1.73m2 (Low) 01/18/2021 03:27 EDT eGFR NonAfrican 20 mL/min/1.73m2 (Low) 01/18/2021 11:30 EDT eGFR NonAfrican 17 mL/min/1.73m2 (Low) 01/18/2021 03:27 EDT Bun/Creatinine 35.6 (High) 01/18/2021 11:30 EDT Bun/Creatinine 33.6 (High) 01/18/2021 03:27 EDT Calcium Level 7.2 mg/dL (Low) 01/18/2021 11:30 EDT Calcium Level 7.5 mg/dL (Low) 01/18/2021 03:27 EDT Albumin Level 1.4 Gram/dL (Low) 01/18/2021 03:27 EDT Magnesium Level 2.1 mg/dL 01/18/2021 03:27 EDT Phosphorus 6.2 mg/dL (High) 01/18/2021 03:27 EDT Lactic Acid Level 2.5 mmol/L (Critical) 01/17/2021 15:34 EDT [1] Hospitalist Progress Note - SOAP; ZULEYMA MICHAELS PA-C 01/17/2021 11:13 EDT documented in this encounter Plan of Treatment Not on file documented as of this encounter Visit Diagnoses Not on filedocumented in this encounter Care Teams Electrical Prospecting Supervisor Relationship Specialty Start Date End Date Yuan Mccracken MD [address] [place] [address] PCP - General Family Medicine 09/23/22 documented as of this encounter
--- OUTSIDE RECORDS SUMMARY | 2025-02-15 10:09 | XMS_ITS | Encounter Summary ---
Author Organization [facility] Init [facility]atives Address [address] [place] [address] Care Team Providers Care Machine Castings Plasterer Name Role Phone Yuan Mccracken MD Primary Care Provider [phone] Encounter Details Date Type Department Care Team (Late st Contact Info) Description 02/06/2021 Transcribed Document [facility] [place] Family [place] [facility] [place] [address] ProviderPerry MD [address] [place] [address] Social History Tobacco Use Types Packs/Day Years Used Date Smoking Tobacco: Never Assessed Comments Unknown Sex and Gender Information Value Date Recorded Sex Assigned at Not on file Legal Sex Female 12:32 PM CDT Gender Identity Not on file Sexual Orientation Not on file documented as of this encounter Miscellaneous Notes * Cerner Conversion Note - Perry Nunes MD - 02/06/2021 4:58 PM CDT Patient Resource Center Entered On: 02/06/2021 17:00 EDT Performed On: 02/06/2021 16:58 EDT by Mallorie Bteancur, Business Process Consultant Patient Resource Center Provider Status : No Assigned Primary Care Established Provider Name : NO PCP Patient Phone Number : [phone] Patient Insurance Type : Insurance pending Source of Referral : Case management Location of Patient : Case management referral Primary Care Scheduled : Yes Primary Care Scheduled Type : Non [facility] Primary Care Provider Name : TAHNH HOFFMAN Primary Care Appointment Date/Time : 02/09/2021 14:30 EDT Specialty Care Scheduled : Yes Specialty Type Scheduled1 : [facility] Cardiology Specialty Type Scheduled2 : Urology, [facility] Other [facility] Cardiology Provider Name : JAGUAR PIZARRO [facility] Cardiology Appointment Date/Time : 04/08/2021 9:00 EDT Urology Provider Name : JOSE HARE Urology Appointment Date/Timie : 04/08/2021 12:00 EDT [facility] Other Provider Name : DAMIAN MARY [facility] Other Provider Appointment Date/Time : 03/04/2021 9:45 EDT Qualify for Diabetes and/or Nutrition Referral : No Wound Care Appointment Made : No Why Patient Visited ED- Specialty spent : Other How Patient Arrived at ED : Other Primary Language : Scottish Patient Resource Center Comment : Patient needs follow up appointments. Called and scheduled appointments with Dr. Hoffman, Dr. Hare, Dr. Mcmillan, and Dr. Pizarro. Called patient with appointments. No answer. Mailed appointments. Follow Up Needed : No Mallorie Betancur, Business Process Consultant - 02/06/2021 16:58 EDT documented in this encounter Plan of Treatment Not on file documented as of this encounter Visit Diagnoses Not on filedocumented in this encounter Care Teams Machine Castings Plasterer Relationship Specialty Start Date End Date Yuan Mccracken MD [address] [place] [phone] PCP - General Family Medicine 09/23/22 documented as of this encounter
--- OUTSIDE RECORDS SUMMARY | 2025-02-15 10:09 | XMS_ITS | Encounter Summary ---
Author Organization [facility] [employer] In iatives Address [address] [place] [address] Care Team Providers Care Forex Trader Name Role Phone Yuan Mccracken MD Primary Care Provider [phone] Encounter Details Date Type Department Care Team (Late st Contact Info) Description 01/23/2021 Transcribed Document [facility] [place] Family Medicine [address] [place] [address] ProviderPerry MD [address], [place] [address] Social History Tobacco Use Types Packs/Day Years Used Date Smoking Tobacco: Never Assessed Comments Unknown Sex and Gender Information Value Date Recorded Sex Assigned at Not on file Legal Sex Female 12:32 PM CDT Gender Identity Not on file Sexual Orientation Not on file documented as of this encounter Miscellaneous Notes * Cerner Conversion Note - Perry Nunes MD - 01/23/2021 6:34 PM CDT Patient: CHANI VELASQUEZ Age: 60 Years Sex: Female : 1960 Subjective Patient seen and examined date of service 01/23/2021. Patient endorses continued shortness of breath same as yesterday. Dry cough. Reports coming in due to her lower legs getting worse. Also endorses having bedbugs in her home, discussed with nursing to follow hospital protocol for this. Patient denies having fever/chills, chest pain, palpitations, n/v/d, abdominal pain, and dysuria. Vital Signs T: 37.3 ??C TMIN: 36.7 ??C TMAX: 37.3 ??C HR: 32(Monitored) RR: 20 BP: 121/80 SpO2: 98% HT: 162.56 cm WT: 128.89 kg BMI: 48.77 Oxygen Settings (Last) Oxygen Therapy Mode: Nasal cannula, oxygen conserving (01/23/21 16:37:00) Oxygen Flow Rate: 3 Liter/Min (01/23/21 16:37:00) Intake & Output Totals Last 24 Hours (7a-7a) Input Total: 900 mL Output Total: 650 mL Balance: 250 mL Physical Exam General: [Alert and oriented, well nourished, morbidly obese, no acute distress]. Neurologic: [Awake, alert, and oriented]. Eye: [Normal conjunctiva]. HENT: [Normocephalic, normal hearing, moist oral mucosa, no scleral icterus]. Neck: [Supple, no JVD]. Lungs: [Clear to auscultation, non-labored respiration]. Heart: [Normal rate, regular rhythm, no murmur, 2/3+ pitting edema in lower legs with weeping chronic wounds bilaterally]. Abdomen: [Soft, non-tender, non-distended though patient is morbidly obese, normal bowel sounds]. Musculoskeletal: [Patient laying in bed without ROM tested]. Skin: [Skin is warm, dry and pink, no rashes]. Psychiatric: [Cooperative, appropriate mood and affect]. Assessment/Plan New onset Atrial Fibrillation with RVR, back in NSR -Cards followed, continue current rate regimen and Eliquis, follow-up outpatient -Keep mag > 2.0, K > 4.0 -Monitor on tele Acute renal failure, improving -Baseline unknown, Cr 6.5 on admission, improving beautifully -Avoid nephrotoxic agents, monitor I/Os, trend renal indices -renal US showed mild left hydro CT scan added: Mild left hydronephrosis from a 5 mm stone in the distal ureter. There is a more proximal nonobstructing 3 mm stone in the distal ureter. -Nephrology following managing ivf/ diureiss, discussed Hypokalemia, resolved with scheduled replacement -Patient very [...] care and PT following for wound care -Follow wound culture Corynebacterium Pneumonia of left lung -ID following continue abx, sputum cx + Corynebacterium -CXR noted, left perihilar opacity -Continue scheduled nebs Right lung nodule on CT scan -Repeat CT scan six months per RAD to be done via primary care -Lung care vesta consulted Cholelithiasis per CT scan -Asymptomatic, follow with PCP Obesity -BMI 44.4 -Complicates all aspects of care Bed bug infestation? -Question if patient possibly having bedbugs in home per her verbal report -Discussed with nursing to follow hospital protocol and she has already been here for 7 days at this point without a bug being seen in patient -Continue contact precautions for now DVT Prophylaxis: Eliquis Full code DISPO: Deconditioned, lives alone. Likely need SNF pending clinical course, not medically ready, will keep over weekend. Will follow cultures and need final ID recs and VS plan. Time spent: 38 minutes. I, Devorah Barr PA-C, personally evaluated the patient forming the plan of care above. Dr. Jakob Salinas available to answer patient plan of care questions and evaluate the patient if needed. VTE Prophylaxis - Medical Apixaban 5 mg, Oral, Tab, [id number], Routine, Start 01/21/21 10:00:00 EDT, 01/21/21 9:43:00 [...] PRN Eliquis, 5 mg= 1 Tab, Oral, [id number] Lac-Hydrin 12% topical lotion, 1 Application, Topical, BID lactobacillus acidophilus, 1 Cap, Oral, BID Lasix, 20 mg= 1 Tab, Oral, Daily magnesium sulfate, 2 Gram= 50 mL, IV Piggyback, Daily, PRN magnesium sulfate, 2 Gram= 50 mL, IV Piggyback, Q2H, PRN magnesium sulfate, 2 Gram= 50 mL, IV Piggyback, 1-Time metoprolol tartrate, 50 mg= 1 Tab, Oral, BID MiraLax, 17 Gram= 1 Packet, Oral, Daily, PRN Mucinex, 600 mg= 1 Tab, Oral, BID, PRN nystatin, [id number] Units= 5 mL, Swish and Swallow , [...] Test Result Date/Time Sodium Level 137 mmol/L 01/23/2021 06:11 EDT Potassium Level 4.5 mmol/L 01/23/2021 06:11 EDT Chloride Level 108 mmol/L 01/23/2021 06:11 EDT Carbon Dioxide Level 24 mmol/L 01/23/2021 06:11 EDT Anion Gap 10 01/23/2021 06:11 EDT Glucose Level 98 mg/dL 01/23/2021 06:11 EDT Blood Urea Nitrogen 29 mg/dL (High) 01/23/2021 06:11 EDT Creatinine Level 1.20 mg/dL (High) 01/23/2021 06:11 EDT eGFR 55 mL/min/1.73m2 (Low) 01/23/2021 06:11 EDT eGFR NonAfrican 46 mL/min/1.73m2 (Low) 01/23/2021 06:11 EDT Bun/Creatinine 24.2 (High) 01/23/2021 06:11 EDT Calcium Level 8.0 mg/dL (Low) 01/23/2021 06:11 EDT Magnesium Level 1.7 mg/dL 01/23/2021 06:11 EDT WBC 14.7 K/uL (High) 01/23/2021 06:11 EDT RBC 3.30 Million/uL (Low) 01/23/2021 06:11 EDT Hgb 8.8 g/dL (Low) 01/23/2021 06:11 EDT Hct 29.8 % (Low) 01/23/2021 06:11 EDT MCV 90.3 fL 01/23/2021 06:11 EDT MCH 26.7 pg 01/23/2021 06:11 EDT MCHC 29.5 Gram/dL (Low) 01/23/2021 06:11 EDT Platelet Count 378 K/uL (High) 01/23/2021 06:11 EDT MPV 9.9 fL 01/23/2021 06:11 EDT RDW 17.4 % (High) 01/23/2021 06:11 EDT Neutrophil Percent Man 77 % (High) 01/23/2021 06:11 EDT Band Percent Man 5 % 01/23/2021 06:11 EDT Lymph Percent Man 10 % (Low) 01/23/2021 06:11 EDT [place] Percent Man 4 % 01/23/2021 06:11 EDT Eos Percent Man 1 % 01/23/2021 06:11 EDT Baso Percent Man 1 % 01/23/2021 06:11 EDT [place] Percent Man 2 % (High) 01/23/2021 06:11 EDT RBC Morphology Abnormal 01/23/2021 06:11 EDT Anisocytosis 1+ (Abnormal) 01/23/2021 06:11 EDT Poikilocytosis 1+ (Abnormal) 01/23/2021 06:11 EDT Polychromasia 1+ (Abnormal) 01/23/2021 06:11 EDT Hypochromia 1+ (Abnormal) 01/23/2021 06:11 EDT Stomatocytes 1+ (Abnormal) 01/23/2021 06:[address] Estimate Increased (Abnormal) 01/23/2021 06:11 EDT Slide Review Add Diff 01/23/2021 06:11 EDT Vancomycin Trough 14.4 mcg/mL 01/23/2021 17:04 EDT Electronically signed by [facility], [facility] Conversion Manager Chemistry Cerner at 12/07/2022 6:13 PM CDT documented in this encounter Plan of Treatment Not on file documented as of this encounter Visit Diagnoses Not on filedocumented in this encounter Care Teams Forex Trader Relationship Specialty Start Date End Date Yuan Mccracken MD [facility] [place] [address] PCP - General Family Medicine 09/23/22 documented as of this encounter
--- OUTSIDE RECORDS SUMMARY | 2025-02-15 10:09 | XMS_ITS | Encounter Summary ---
Author Organization [facility] Init [employer]atives Address [address] [place] [address] Care Team Providers Care Public Affairs Director Name Role Phone Yuan Mccracken MD Primary Care Provider [phone] Encounter Details Date Type Department Care Team (Late st Contact Info) Description 01/29/2021 Transcribed Document [facility] [place] Family Medicine [address] [place] [address] ProviderPerry MD [address], [place] [address] Social History Tobacco Use Types Packs/Day Years Used Date Smoking Tobacco: Never Assessed Comments Unknown Sex and Gender Information Value Date Recorded Sex Assigned at Not on file Legal Sex Female 12:32 PM CDT Gender Identity Not on file Sexual Orientation Not on file documented as of this encounter Miscellaneous Notes * Cerner Conversion Note - Perry Nunes MD - 01/29/2021 5:00 AM CDT Chart Check - Review Order Profile Entered On: 01/29/2021 5:58 EDT Performed On: 01/29/2021 5:00 EDT by PAYTON MONIQUE RN-PATIENT CARE BEDSIDE NON-EXEMPT Chart Check Powerplans Initiated/Discontinued as Appropriate : Yes All Active Orders Reviewed : Yes PAYTON MONIQUE RN-PATIENT CARE BEDSIDE NON-EXEMPT - 01/29/2021 5:58 EDT documented in this encounter Plan of Treatment Not on file documented as of this encounter Visit Diagnoses Not on filedocumented in this encounter Care Teams Public Affairs Director Relationship Specialty Start Date End Date Yuan Mccracken MD [address] [place] [phone] PCP - General Family Medicine 09/23/22 documented as of this encounter
--- OUTSIDE RECORDS SUMMARY | 2025-02-15 10:09 | XMS_ITS | Encounter Summary ---
Author Organization [facility] Init [employer]atives Address [address] [place] [address] Care Team Providers Care Textile Converter Name Role Phone Yuan Mccracken MD Primary Care Provider [phone] Encounter Details Date Type Department Care Team (Late st Contact Info) Description 01/23/2021 Transcribed Document [facility] [place] Family Medicine [address] [place] [address] ProviderPerry MD [address] [place], [place] [address] Social History Tobacco Use Types Packs/Day Years Used Date Smoking Tobacco: Never Assessed Comments Unknown Sex and Gender Information Value Date Recorded Sex Assigned at Not on file Legal Sex Female 12:32 PM CDT Gender Identity Not on file Sexual Orientation Not on file documented as of this encounter Miscellaneous Notes * Cerner Conversion Note - Perry Nunes MD - 01/23/2021 6:42 PM CDT Event Note Entered On: 01/23/2021 18:42 EDT Performed On: 01/23/2021 18:42 EDT by Yelitza Chen RN-PATIENT CARE BEDSIDE NON-EXEMPT Event Note Event Date/Time : 01/23/2021 18:42 EDT Description of Event : Per [place] ID, okay for PT to place appropriate wound care orders for patient upon examination Yelitza Chen RN-PATIENT CARE BEDSIDE NON-EXEMPT - 01/23/2021 18:42 EDT documented in this encounter Plan of Treatment Not on file documented as of this encounter Visit Diagnoses Not on filedocumented in this encounter Care Teams Textile Converter Relationship Specialty Start Date End Date Yuan Mccracken MD [address] [place] [phone] PCP - General Family Medicine 09/23/22 documented as of this encounter
--- OUTSIDE RECORDS SUMMARY | 2025-02-15 10:09 | XMS_ITS | Data Portability ---
Author Organization [facility] Address [address] [place] [address] Care Team Providers Care Speedboat Driver Name Role Phone MARISELA MARSHALL Referring Provider [...] shared decision-ma hugh session with the provider? YES 2- Is patient age between 50-77 years old? YES 3- Did patient smoke at least 20 pack year? YES 4- Is patient current smoker or quit smoking within the last 15 years? YES 5- Is the patient asymptomati c (no signs or symptoms of lung cancer)? YES [email or web address], [place], [address], 3 10:44:45 Medication Orders Stiolto Respimat 2.5 mcg-2.5 mcg/actuati on solution for inhalation 2022 023 [facility] [address] [place], [address], 3 10:25:21 albuterol sulfate HFA 90 mcg/actuati on aerosol inhaler 2022 023 [facility] [address] [place], [address], 3 10:25:21 Patient TargetsNo targets recorded. Patient InstructionsNo instructions recorded. Reason for Referral None Reported. Results Created Date Observation Date Name Description Value Unit Range Abnormal Flag Note LastModifiedBy Organization Detail LastModifiedTime Result Notes None recorded. Problems Name Problem SNOMED Code Status Onset Date Resolution Date Notes Provider Name and Address Organization Details Recorded Time Pulmonary emphysema 07585871 Active 2022 Not Available [facility] 3 13:26:57 Dyspnea on exertion 35971709 Active 2022 Not Available [facility] 3 13:26:57 Obstructive sleep apnea syndrome 69501761 Active 2022 Not Available [facility] 3 13:26:57 Morbid obesity 092907300 Active 2022 Not Available [facility] 3 13:26:57 Nicotine dependence in remission 150941238 Active 2022 Not Available [facility] 3 13:26:57 Problem Notes None recorded. Procedures Surgical History Date Name Laterality Status Provider Name and Address Organization Details Recorded Time total hysterectomy completed Dariel Napier [facility] 02/28/2023 10:03:18 Imaging Results None recorded. Procedure [...] Details Last Updated DateTime 3 165.1 cm 161613. 75 g 99.6 [degF] 99 % 99 % 73 /min 142 mm[Hg] 89 mm[Hg] Dariel guevara [place] - [facility] - [place] & [place] 3 10:01:46 Social History Question Answer Notes LastModified by Organizat ion Details LastModified Time Tobacco Smoking Status Former Smoker Not Available [facility] 06/27/2023 13:26:58 What Is Your Level Of Caffeine Consumption? Moderate CHART_MERGE Information not available 06/27/2023 When Did You Quit Smoking? 11-15yearssinc elastcigarette CHART_MERGE Information not available 06/27/2023 What Is Your Current Pack Years? 30ormorepackye ars CHART_MERGE Information not available 06/27/2023 At What Age Did You Start Smoking Tobacco? 23 CHART_MERGE Information not available 06/27/2023 Sex: Unknown Functional Status Question Answer Note LastModified by Organizat ion Details LastModified Time Do you use any illicit or recreational drugs? No CHART_MERGE Information not available 06/27/2023 Do you or have you ever used any other forms of tobacco or nicotine? No CHART_MERGE Information not available 06/27/2023 What is your level of alcohol consumption? None CHART_MERGE Information not available 06/27/2023 Mental Status None recorded. Family History Nothing Reported. Medical History No medical history recorded. Gynecological HistoryNo gynecological history recorded. Obstetrics History GPAL:G 0 P 0 0 0 0 Past Encounters Encounter ID Performer Location Encounter Start Date Encounter Closed Date Diagnosis/Indication Diagnosis SNOMED-CT Code Diagnosis ICD10 Code Diagnosis Note [id number] Alannah Romano MD [facility] [address] [facility] [place] [address] 02/28/2023 09:52:42 02/28/2023 10:19:05 Pulmonary emphysema 96818742 J43.9 Images and report of chest x-ray [...] p.r.n. basis. Obstructiv e sleep apnea syndrome 78726339 G47.33 Patient instructed to continue with the use of her CPAP regularly and comply with the cleaning instructio ns and supply changes. Morbid obesity 084723875 E66.01 Patient recommende d to diet and exercise in order to lose weight. I entertaine d the idea of bariatric surgery with the patient and she wants to think about it and let me know. Nicotine d ependence in remission 968974282 F17.211 Patient quit smoking about 12 years ago and will continue with annual low-dose CT of the chest testing for early lung cancer detection. Screening for malignant neoplasm of respiratory tract 838495541 Z12.2 The patient has participat ed in [...] ID Guarantor Name 03/10/2024 2 MEDICA[place]INSTIT[place] ) Chani Velasquez [id number] Chani Velasquez 03/10/2024 1 [facility]MED[place]PL[place]) [id number] Chani Velasquez [id number] Chani Velasquez Notes Date Note Type Note [...] participating in the cardiac rehab program at [facility] due to coronary artery disease/RCA obstruction. Alannah Romano MD [address] [facility] [address], [place], [address], [facility] [place] - [place] - [place] & [place] 02/28/2023 10:25:41 OBGyn Episode No OBEpisode recorded.
--- OUTSIDE RECORDS SUMMARY | 2025-02-15 10:09 | XMS_ITS | Encounter Summary ---
Author Organization [facility] Init [employer]atives Address [address] [place] [address] Care Team Providers Care Bagging Machine Operator Name Role Phone Yuan Mccracken MD Primary Care Provider [phone] Encounter Details Date Type Department Care Team (Late st Contact Info) Description 01/31/2021 Transcribed Document [facility] [place] Family Medicine [address] [place] [address] ProviderPerry MD [address], [place] [address] Social History Tobacco Use Types Packs/Day Years Used Date Smoking Tobacco: Never Assessed Comments Unknown Sex and Gender Information Value Date Recorded Sex Assigned at Not on file Legal Sex Female 12:32 PM CDT Gender Identity Not on file Sexual Orientation Not on file documented as of this encounter Miscellaneous Notes * Cerner Conversion Note - Perry Nunes MD - 01/31/2021 2:00 AM CDT Photographer Apprentice Details Entered On: 01/31/2021 4:41 EDT Performed On: 01/31/2021 2:00 EDT by ANTONIO OTERO RN Order [...] Crushed/Liquid : No ANTONIO OTERO RN - 01/31/2021 4:41 EDT documented in this encounter Plan of Treatment Not on file documented as of this encounter Visit Diagnoses Not on filedocumented in this encounter Care Teams Bagging Machine Operator Relationship Specialty Start Date End Date Yuan Mccracken MD [address] [place] [phone] PCP - General Family Medicine 09/23/22 documented as of this encounter
--- OUTSIDE RECORDS SUMMARY | 2025-02-15 10:09 | XMS_ITS | Encounter Summary ---
Author Organization [facility] Init iatives Address [address] [place] [address] Care Team Providers Care Precast Concrete Products Installer Name Role Phone Yuan Mccracken MD Primary Care Provider [phone] Encounter Details Date Type Department Care Team (Late st Contact Info) Description 01/31/2021 Transcribed Document [facility] [place] Family Medicine [address] [place] [address] ProviderPerry MD [address], [place] [address] Social History Tobacco Use Types Packs/Day Years Used Date Smoking Tobacco: Never Assessed Comments Unknown Sex and Gender Information Value Date Recorded Sex Assigned at Not on file Legal Sex Female 12:32 PM CDT Gender Identity Not on file Sexual Orientation Not on file documented as of this encounter Miscellaneous Notes * Cerner Conversion Note - Perry Nunes MD - 01/31/2021 9:40 AM CDT Final Discharge Planning Entered On: 01/31/2021 9:41 EDT Performed On: 01/31/2021 9:40 EDT by EFRAIN RAY, STEPHEN-Java Designer Final Discharge Planning Discharge Arrangements : Patient Post-Acute Information Patient Name: CHANI VELASQUEZ Gender: Female : [birth year] Age: 60 Years No Post-Acute Placement(s) Listed No Post-Acute Service(s) Listed No Curaspan Referral(s) Listed Patient Offered Choice/Affiliations Explained : Yes Designation of Choice Signed : Yes Transportation Needs : Wheelchair van Follow Up Appointment Scheduled : Yes Is Patient High/Moderate Readmission Risk? : Yes Patient/Family Notified of Plan : Yes Is Patient Ready for Discharge? : Yes Discharge To Care Management : SNF with Medicare Certification-03 EFRAIN RAY, RN-Java Designer - 01/31/2021 9:40 EDT Final Narrative Note Final Narrative Note : andrae giles at 10am EFRAIN RAY RN-Java Designer - 01/31/2021 9:40 EDT Electronically signed by [facility] Conversion E Learning Specialist Cerner at 12/07/2022 6:21 PM CDT documented in this encounter Plan of Treatment Not on file documented as of this encounter Visit Diagnoses Not on filedocumented in this encounter Care Teams Precast Concrete Products Installer Relationship Specialty Start Date End Date Yuan Mccracken MD [address] [place] [address] PCP - General Family Medicine 09/23/22 documented as of this encounter
--- OUTSIDE RECORDS SUMMARY | 2025-02-15 10:09 | XMS_ITS | Encounter Summary ---
Author Organization [employer] Address [address] [place] [address] Care Team Providers Care Senior Manager Asset Protection Name Role Phone Yuan Mccracken MD Primary Care Provider [phone] Encounter Details Date Type Department Care Team (Late st Contact Info) Description 01/23/2021 Transcribed Document [facility] Family Medicine [facility] [place] [address] ProviderPerry MD [address] [place] [address] Social History Tobacco Use Types Packs/Day Years Used Date Smoking Tobacco: Never Assessed Comments Unknown Sex and Gender Information Value Date Recorded Sex Assigned at Not on file Legal Sex Female 12:32 PM CDT Gender Identity Not on file Sexual Orientation Not on file documented as of this encounter Miscellaneous Notes * Cerner Conversion Note - Perry Nunes MD - 01/23/2021 12:20 PM CDT Patient: CHANI VELASQUEZ Age: 60 [...] had progressive right leg swelling and erythema 6/ afebrile, per hospitaist notes, erythema has improved since vanc started 01/21; WBC 20-> 16-> 14 since vanc started wound culture and MRSA surveillance culture pending PT has recommended whirlpool as an alternative to mist therapy Arterial studies pending PAST MEDICAL HISTORY Chronic LE edema Nephrolithiasis Acute on ?chronic kidney disease BMI 44 SH quit smoking 12 years ago has been placed in a NH after ICH Review of Systems ROS reviewed as documented in chart Health Status Current medications: (Selected) Inpatient Medications Ordered Dulcolax Laxative: 5 mg, Oral, Daily, PRN: Constipation Eliquis: 5 mg, Oral, [id number] Lac-Hydrin 12% topical lotion: 1 Application, Topical, [...] mL: 1,750 mg, 250 mL/Hr, IV Piggyback, [id number] Physical Examination VS/Measurements Vitals Signs (last 24 hrs) Last Charted Minimum Maximum Temp 98 (JAN 23 11:12) 98 (JAN 23 05:34) 98.2 (JAN 22 14:44) Apical HR 68 (JAN 23 09:15) 68 (JAN 23 09:15) 76 (JAN 22 21:41) Mon HR 62 (JAN 23 11:12) 62 (JAN 23 11:12) 80 (JAN 22 18:00) Resp Rate 16 (JAN 23 11:12) 16 (JAN 23 11:12) H 24 (JAN 22 21:55) SBP 125 (JAN 23 11:12) 118 (JAN 23 05:34) H 150 (JAN 22 14:44) DBP 71 (JAN 23 11:12) L 59 (JAN 23 05:34) H 92 (JAN 22 14:44) MAP 85 (JAN 23 11:12) 85 (JAN 23 11:12) 99 (JAN 22 14:44) SpO2 98 (JAN 23 11:12) L 93 (JAN 23 05:34) 100 (JAN 22 18:32) , Measurements from flowsheet : Measurements 01/23/2021 4:00 EDT Height Source Stated Height Entry Format Rush Height/Length, [place] (ft) 5 ft Height/Length [place] 4 Inch CLINICALHEIGHT 162.56 cm Routine Weight Source Bed scale Routine Weight Entry Format Rush Routine Weight, Pounds 283 lb Routine Weight, Ounces 9 oz Routine Weight Calculation 128.89 kg Body Mass Index (BMI), Routine 48.77 kg/m2 Body Surface Area (BSA), Routine 2.27 m2 01/22/2021 4:00 EDT Height Source Stated Height Entry Format Rush Height/Length, [place] (ft) 5 ft Height/Length [place] 4 Inch CLINICALHEIGHT 162.56 cm Routine Weight Entry Format Rush Routine Weight, Pounds 270 lb Routine Weight, [...] (Last four charted values) WBC H 14.7 (JAN 23) H 16.9 (JAN 22) H 20.0 (JAN 21) H 16.5 (JAN 20) HB L 8.8 (JAN 23) L 8.8 (JAN 22) L 8.7 (JAN 21) L 9.2 (JAN 20) HCT L 29.8 (JAN 23) L 29.9 (JAN 03) L 28.2 (JAN 02) L 29.6 (JAN 20) Plt H 378 (JAN 23) 341 (JAN 03) 322 (JAN 02) 305 (JAN 20) Na 137 (JAN 04) 136 (JAN 03) 137 (JAN 02) 139 (JAN 01) K 4.5 (JAN 04) 3.7 (JAN 03) 3.9 (JAN 02) L 3.2 (JAN 02) Cl 108 (JAN 23) 105 (JAN 03) 103 (JAN 02) 105 (JAN 01) CO2 24 (JAN 23) 27 (JAN 03) 29 (JAN 21) 26 (JAN 20) BUN H 29 (JAN 23) H 32 (JAN 22) H 34 (JAN 21) H 48 (JAN 20) Cr H 1.20 (JAN 23) H 1.30 (JAN 22) H 1.40 (JAN 21) H 1.60 (JAN 20) Glu R 98 (JAN 23) H 121 (JAN 22) H 111 (JAN [...] RECOMMENDATIONS -- culture right leg wound -- since she is improving on current regimen of vanc and zosyn I will continue this -- arterial doppler- pending -- PT consult for mist therapy to right leg- they have recommended whirlpool as an alternative -- consider vascular consult -- probiotic documented in this encounter Plan of Treatment Not on file documented as of this encounter Visit Diagnoses Not on filedocumented in this encounter Care Teams Senior Manager Asset Protection Relationship Specialty Start Date End Date Yuan Mccracken MD [address] [place] [phone] PCP - General Family Medicine 09/23/22 documented as of this encounter
--- OUTSIDE RECORDS SUMMARY | 2025-02-15 10:09 | XMS_ITS | Encounter Summary ---
Author Organization [facility] Address [address] [place] [address] Care Team Providers Care Data Collection Technician Name Role Phone Yuan Mccracken MD Primary Care Provider [phone] Encounter Details Date Type Department Care Team (Late st Contact Info) Description 01/30/2021 Transcribed Document [facility] [place] Family Medicine [address] [place] [address] ProviderPerry MD [address] [place], [place] [id number] Social History Tobacco Use Types Packs/Day Years Used Date Smoking Tobacco: Never Assessed Comments Unknown Sex and Gender Information Value Date Recorded Sex Assigned at Not on file Legal Sex Female 12:32 PM CDT Gender Identity Not on file Sexual Orientation Not on file documented as of this encounter Miscellaneous Notes * Cerner Conversion Note - Perry Nunes MD - 01/30/2021 2:00 AM CDT Antenna Machine Operator Details Entered On: 01/30/2021 4:24 EDT Performed On: 01/30/2021 2:00 EDT by Karla Barakat Non Emp RN Order Details Transport Mode Order Detail : Bed (including specialty) Isolation Precautions Order Detail : Containment Precautions Order Detail : 0 Lift/Transfer : Maximal assist Central Line Order Detail : No Room Service : Needs Assistance Arterial Line : No Patient Needs Meds Crushed/Liquid : No Karla Barakat Non Emp RN - 01/30/2021 4:24 EDT documented in this encounter Plan of Treatment Not on file documented as of this encounter Visit Diagnoses Not on filedocumented in this encounter Care Teams Data Collection Technician Relationship Specialty Start Date End Date Yuan Mccracken MD [facility] [phone] PCP - General Family Medicine 09/23/22 documented as of this encounter
--- OUTSIDE RECORDS SUMMARY | 2025-02-15 10:09 | XMS_ITS | Encounter Summary ---
Author Organization [facility] [employer] Address [address] [place] [address] Care Team Providers Care Utility Sales And Service Manager Name Role Phone Yuan Mccracken MD Primary Care Provider [phone] Encounter Details Date Type Department Care Team (Late st Contact Info) Description 02/02/2021 Transcribed Document [facility] Family Medicine [address] [place] [address] ProviderPerry MD [address] [place], [place] [address] Social History Tobacco Use Types Packs/Day Years Used Date Smoking Tobacco: Never Assessed Comments Unknown Sex and Gender Information Value Date Recorded Sex Assigned at Not on file Legal Sex Female 12:32 PM CDT Gender Identity Not on file Sexual Orientation Not on file documented as of this encounter Miscellaneous Notes * Cerner Conversion Note - Perry Nunes MD - 02/02/2021 2:32 PM CDT UM Authorization Entered On: 02/02/2021 14:32 EDT Performed On: 02/02/2021 14:32 EDT by Rochelle Vasquez, Expediter Clerk Primary Insurance Authorization Authorization and Policy Numbers : Insurance 1 Health Plan: [facility] Policy Number: [id number] Authorization Number: Insurance Primary Name : [employer] MEDICAID [id number] Authorization Status-Primary : Awaiting callback Auth/Referral Contact Name-Primary : [place] Reference Number-Primary : [id number] Authorized Service Begin Date-Primary : 01/16/2021 EDT Authorization Comments-Primary : Discharge date and summary faxed. Historical Authorization Comments-Primary : Comment 1: rec'd call from [employer] medicaid- they did receive clinicals and will call back with a decision. (DWIGHT PERALTA, RN-Utilization Review 01/30/2021 10:07) Comment 2: vm to [facility] medicaid [id number] (covering for Brittney Kelly) asking if she rec'd clinical info faxed on 01/29/21. await call back (DWIGHT PERALTA, RN-Utilization Review 01/30/2021 09:26) Comment 3: CM gave a medicaid ID no. Per [facility] pt has [facility]. Notified [facility] clinicals submitted via [facility] portal and faxed via [employer] from 01/16 to 01/29 for Ip approval (CARMEN MARLOW RN 01/29/2021 14:06) Comment 4: MEDICAID PENDING (DWIGHT PERALTA, RN-Utilization Review 01/28/2021 08:04) Comment 5: MEDICAID PENDING (DWIGHT PERALTA, RN-Utilization Review 01/27/2021 08:41) Comment 6: MEDICAID PENDING (DWIGHT PERALTA, RN-Utilization Review 01/26/2021 08:45) Comment 7: MEDICAID PENDING (DWIGHT PERALTA, RN-Utilization Review 01/23/2021 09:42) Comment 8: SELF PAY (DWIGHT PERALTA, RN-Utilization Review 01/22/2021 08:29) Comment 9: SELF PAY (DWIGHT PERALTA, RN-Utilization Review 01/21/2021 08:19) Comment 10: Self pay at the time of review (CARMEN MARLOW RN 01/20/2021 13:51) Rochelle Vasquez, Expediter Clerk - 02/02/2021 14:32 EDT documented in this encounter Plan of Treatment Not on file documented as of this encounter Visit Diagnoses Not on filedocumented in this encounter Care Teams Utility Sales And Service Manager Relationship Specialty Start Date End Date Yuan Mccracken MD [address] [place] [phone] PCP - General Family Medicine 09/23/22 documented as of this encounter
--- OUTSIDE RECORDS SUMMARY | 2025-02-15 10:09 | XMS_ITS | Encounter Summary ---
Author Organization [facility] [employer] Address [address] [place] [address] Care Team Providers Care Public Records Researcher Name Role Phone Yuan Mccracken MD Primary Care Provider [phone] Encounter Details Date Type Department Care Team (Late st Contact Info) Description 03/04/2021 Transcribed Document [facility] Family Medicine [address] [place] [address] ProviderPerry MD [address] [place] [address] Social History Tobacco Use Types Packs/Day Years Used Date Smoking Tobacco: Never Assessed Comments Unknown Sex and Gender Information Value Date Recorded Sex Assigned at Not on file Legal Sex Female 12:32 PM CDT Gender Identity Not on file Sexual Orientation Not on file documented as of this encounter Miscellaneous Notes * Cerner Conversion Note - Perry Nunes MD - 03/04/2021 12:17 AM CDT [address] [address] OPERATIVE REPORT PATIENT IDENTIFICATION: CHANI VELASQUEZ (Female - 1960) ACCOUNT / UNIT NUMBER: [id number] / [id number] PRIMARY CARE PHYSICIAN: JEFF ROBBINS PATIENT LOCATION: [facility] [place] ADMIT DATE / TIME: 03/03/21 1411 DISCHARGE DATE / TIME: DICTATED: 03/03/212016 by ADIA GONZALEZ TRANSCRIBED: 03/03/212108 by FRANCISCO IMPORTED: 03/03/212118 CC: JEFF ROBBINS; ADIA GONZALEZ\Amber\ DATE OF PROCEDURE: 03/03/2021 SURGEON: Adia Gonzalez MD PREOPERATIVE DIAGNOSES: Left ureteral stone, left hydronephrosis, left renal colic. POSTOPERATIVE DIAGNOSES: Left ureteral stone, left hydronephrosis, left renal colic. PROCEDURES PERFORMED: 1. Left ureteroscopy laser and basket extraction of stone. 2. Left Pyloscopy with lazer of stones 3. Retrograde pyelogram with fluoroscopic dilation distal ureter. 4. Left stent. ANESTHESIA: LMA. HISTORY: Chani Velasquez is a 60-year-old white female, assisted resident, who had CT scan showing left-sided stones x2, with hydronephrosis and renal colic. The patient wished to proceed with endoscopic removal. After risks and benefits discussed, patient understands and wished to proceed. DESCRIPTION OF PROCEDURE: The patient was taken to the operating room, placed in dorsal lithotomy position, prepped and draped in the usual sterile fashion. The patient had some mild obesity. Urethra normal. Bladder normal. Left UO was cannulated. We dilated the ureter, placed ureteral access sheath and did ureteroscopy. Small stone was seen. We lasered the stone, broken into small fragments, too small to basket extract. We shot a retrograde pyelogram and we did pyeloscopy. There was a small stone in the kidney and we lasered this free of the papilla. We basket to bring it down into the ureter, again this is a small fragment and too small to send for analysis. We shot a retrograde pyelogram, placed a 6 x 24 stent with good proximal distal curl. A Coulter catheter was placed and the patient was taken to the recovery room in stable condition. I will see her next week for stent removal. /[id number] Dictated By: ADIA GONZALEZ E-Signed By: RAFITA 16 08 [\R\ rep ct labl] [\R\ rep ct ivnm] Medical Disclaimer: This report is to be considered preliminary until reviewed and signed. Electronically signed by Carlotta, [facility] Conversion Pattern Storage Clerk Cerner at 11/23/2022 1:30 PM CDT documented in this encounter Plan of Treatment Not on file documented as of this encounter Visit Diagnoses Not on filedocumented in this encounter Care Teams Public Records Researcher Relationship Specialty Start Date End Date Yuan Mccracken MD [address] [place] [phone] PCP - General Family Medicine 09/23/22 documented as of this encounter
--- OUTSIDE RECORDS SUMMARY | 2025-02-15 10:09 | XMS_ITS | Encounter Summary ---
Author Organization [facility] In [facility] Address [address] [place] [address] Care Team Providers Care Editing Internship Name Role Phone Yuan Mccracken MD Primary Care Provider Encounter Details Date Type Department Care Team (Late st Contact Info) Description 01/31/2021 Transcribed Document [facility] [facility] [address] [place] [address] ProviderPerry MD [address] [place] [address] Social History Tobacco Use Types Packs/Day Years Used Date Smoking Tobacco: Never Assessed Comments Unknown Sex and Gender Information Value Date Recorded Sex Assigned at Not on file Legal Sex Female 12:32 PM CDT Gender Identity Not on file Sexual Orientation Not on file documented as of this encounter Miscellaneous Notes * Cerner Conversion Note - Perry Nunes MD - 01/31/2021 10:49 AM CDT [facility] [place], [place] [id number] CHANI VELASQUEZ :1960 Visit Time:01/16/2021 Your Visit Summary Your Care Team Admitting Physician - PRINCESS RIVERA MD Attending Physician - MAHSA RINALDI MD Primary Care Physician - ASH, UNKNOWN Referring Physician - SELF, REFERRED (REF), -UNK Your Diagnosis Acidosis Blood CO2 decreased Cellulitis, legs Dyspnea, unspecified, Dyspnea, unspecified Elevated serum creatinine General medical Hyperkalemia Hyperventilating Shortness of breath These Are Your Goals Monitor open wounds on extremities closely, and keep cuts clean and covered until healed. Discharge Vitals Temperature 36.4 ??C Heart Rate (Monitored) 97 Respiratory Rate 16 Blood Pressure 131/70 What to do next Instructions From Your Care Team Discharge Follow Up Instructions: PCP: Repeat Chest CT in 07/2021 (6mo) to eval lung nodules EP in 2 week General cardiology in 1 months Urology in 1 month Vascular Sx in [address] Gillis, nephrology, in 2 weeks BMP in 1 week PCP within 1 month for post-hospital f/up Activity: continue compressive wraps to legs, Mist therapy with PT, continue to work with PT/OT, Activity as tolerated Diet: double protein, Toney supplements BID, Regular diet as tolerated Fluid Restriction: Yes, Over Time Period Of (hrs): 24 (hrs), Restrict Fluids To (mL): 2,000 (mL) Follow-Up Appointments Follow Up with NADIRA RIOS When 02/27/2021 11:30 AM EDT Comments f/u with venous reflux study Where: [facility] [address] [facility] [place] [address]- Business (1) Follow Up with JOSY Cook(JULIENNE LAW When Within 1 week Comments Please call and schedule an appointment to establish a Primary Care Provider in [place] once you receive your medicaid card. Call the patient resource center if you need assistance making this appointment. Where: [address] [place] [address] [place] [address]- Follow Up with Patient Resource Center When Only if needed Comments Please contact the Patient Resource Center at if you need assistance scheduling a Specialist or Primary Care Provider in the future. Follow Up with JOSE HARE MD-URO When Within 1 month Comments f/u stones Where: [address] [facility] [address] [place] [address]- Follow Up with DAMIAN HERNANDEZ When Within 1 month Where: [address] [facility] [address] [place] [address]- Business (1) Follow Up with JAGUAR PIZARRO When Within 2 months Where: [address] [place] [address]- Business (1) Medications What How Much When Instructions Next Dose acetaminophen (Tylenol 325 mg oral tablet) 2 Tablet(s) Oral Every 4 Hours as needed for Pain (Mild 1-3) any time albuterol-ipratropium (albuterol-ipratropium 100 mcg-20 mcg/ inh inhalation aerosol) 1 Puff(s) Inhalation Every 4 hours while awake as needed for Wheezing any time albuterol-ipratropium (DuoNeb 0.5 mg-2.5 mg/ 3 mL inhalation solution) 3 Milliliter(s) Nebulized Inhalation Every 6 Hours as needed for Wheezing any time ammonium lactate topical (Lac-Hydrin 12% topical lotion) 1 Application(s) Topical Two Times A Day 01/31/2021 9pm apixaban (Eliquis 5 mg oral tablet) 1 Tablet(s) Oral Interval Every 12 Hours 01/31/2021 9pm doxycycline (doxycycline hyclate 100 mg oral capsule) 1 Capsule(s) Oral Every 12 hours Duration: 2 Day(s) 01/31/2021 9pm furosemide (Lasix 40 mg oral tablet) 1 Tablet(s) Oral Two Times A Day 01/31/2021 9pm lactobacillus acidophilus (lactobacillus acidophilus oral capsule) Oral Two Times A Day 01/31/2021 9pm linezolid (Zyvox 600 mg oral tablet) 1 Tablet(s) Oral Every 12 hours Duration: 2 Day(s) 01/31/2021 9pm melatonin (Melatonin 1 mg oral tablet) 1 Tablet(s) Oral At Bedtime as needed for Sleep any time metOLazone (metOLazone 5 mg oral tablet) 1 Tablet(s) Oral Tuesday, Tuesday, Tuesday02/02/2021 9am metoprolol (metoprolol tartrate) 50 Milligram(s) Oral Two Times A Day 01/31/2021 9pm polyethylene glycol 3350 (MiraLax) 17 Gram(s) Oral Every Day as needed for Constipation any time potassium chloride (potassium chloride 10 mEq oral tablet, extended release) 4 Tablet(s) Oral Two Times A Day 01/31/2021 9pm Take your medications faithfully. Do NOT skip medication. Do NOT stop taking medications without the direction of a physician. Carry a list of your medications with you at all times, and take this medication list with you to your first follow up visit. Report any side effects. Avoid herbal remedies unless discussed with your physician. As part of your treatment plan, your physician may have prescribed a limited course of a controlled substance. This medication may be given to help people with moderate or severe pain or for other medical conditions, but there are risks involved with treatment. Common side effects may include nausea, constipation, drowsiness, sweating, itching, dry mouth, and rash. More serious side effects may include cognitive and motor impairment, like problems with thinking, concentrating, alertness, and movement (e.g. slowed reflexes), and driving and operating heavy machinery can be dangerous. It is important for you to talk to your physician if you have these side effects or questions. These controlled substances can produce physical dependence and be habit-forming if taken for an extended period of time, which means that the body has gotten used to them and may experience withdrawal symptoms if they are abruptly stopped. Withdrawal symptoms can include runny nose, sweating, goose bumps, diarrhea, abdominal cramping, rapid heartbeat, difficulty sleeping, and nervousness. Please dispose of unused and medications per your retail pharmacy guidance. Allergies No Known Allergies Immunizations This Visit No Immunizations Found Education Materials Cellulitis, Adult Cellulitis is a skin infection. [...] these instructions at home: Medicines ??? Take [id number] and prescription medicines only as told by [...] do not start to get better after 1???2 days of treatment. ??? Your bone or [...] do not start to get better after 1???2 days of treatment. This information is not intended to replace advice given to you by your health care provider. Make sure you discuss any questions you have with your health care provider. Document Revised: 12/28/2018 Document Reviewed: 12/28/2018 [id number] Patient Education ?? 2020 [employer]. metolazone (me MICHAELA a zone) Zaroxolyn What is the most important information I should know about metolazone? You should not use metolazone if you are unable to urinate, or if you have severe liver disease. What is metolazone? Metolazone is a thiazide diuretic (water pill) that helps prevent your body from absorbing too much salt, which can cause fluid retention. Metolazone is used to treat fluid retention (edema) in people with congestive heart failure, or a kidney disorder such as nephrotic syndrome. Metolazone is also used to treat high blood pressure (hypertension). Metolazone may also be used for purposes not listed in this medication guide. What should I discuss with my doctor before taking metolazone? You should not use metolazone if you are allergic to it, or if you have: ?? severe liver disease; or ?? if you are unable to urinate. To make sure metolazone is safe for you, tell your doctor if you have: ?? an electrolyte imbalance (such as low levels of potassium or magnesium in your blood); ?? a heart rhythm disorder; ?? an allergy to sulfa drugs; ?? liver disease; ?? kidney disease; ?? diabetes; ?? gout; or ?? systemic lupus erythematosus. Using metolazone during could cause side effects in the baby, such as blood cell problems, or jaundice (yellowing of the skin or eyes). Tell your doctor if you are or if you become while using this medicine. Metolazone can pass into breast milk and may harm a nursing baby. You should not breast-feed while using this medicine. Metolazone is not approved for use by anyone younger than 18 years old. How should I take metolazone? Follow all directions on your prescription label. Your doctor may occasionally change your dose to make sure you get the best results. Do not use this medicine in larger or smaller amounts or for longer than recommended. Metolazone is usually taken only once per day. You may need to limit salt in your diet while taking this medicine. Follow your doctor's instructions carefully. While using metolazone, you may need frequent blood tests. Your blood and urine may both be tested if you have been vomiting or are dehydrated. Metolazone can cause unusual results with certain medical tests. Tell any doctor who treats you that you are using metolazone. If you need surgery, tell the surgeon ahead of time that you are using metolazone. You may need to stop using the medicine for a short time. If you are being treated for high blood pressure, keep using this medicine even if you feel well. High blood pressure often has no symptoms. You may need to use blood pressure medicine for the rest of your life. Store the tablets at room temperature away from heat, light, and moisture. What happens if I miss a dose? Take the missed dose as soon as you remember. Skip the missed dose if it is almost time for your next scheduled dose. Do not take extra medicine to make up the missed dose. What happens if I overdose? Seek emergency medical attention or call the Poison Help line at . Overdose symptoms may include severe dizziness or drowsiness, dry mouth, thirst, muscle weakness, feeling light-headed, or fainting. What should I avoid while taking metolazone? Drinking alcohol with this medicine can cause side effects. Avoid becoming overheated or dehydrated during exercise, in hot weather, or by not drinking enough fluids. Follow your doctor's instructions about the type and amount of liquids you should drink. In some cases, drinking too much liquid can be as unsafe as not drinking enough. What are the possible side effects of metolazone? Get emergency medical help if you have signs of an allergic reaction: hives; difficult breathing; swelling of your face, lips, tongue, or throat. Call your doctor at once if you have: ?? chest pain; ?? pounding heartbeats or fluttering in your chest; ?? easy bruising or bleeding; ?? a light-headed feeling, like you might pass out; ?? liver problems--nausea, upper stomach pain, itching, tiredness, loss of appetite, dark urine, lesli-colored stools, jaundice (yellowing of the skin or eyes); ?? low potassium--leg cramps, constipation, irregular heartbeats, fluttering in your chest, increased thirst or urination, numbness or tingling, muscle weakness or limp feeling; ?? low levels of sodium in the body--headache, confusion, slurred speech, severe weakness, vomiting, loss of coordination, feeling unsteady; ?? other signs of an electrolyte imbalance--dry mouth, nausea, vomiting, weakness, drowsiness, lack of energy, muscle pain, little or no urination, or feeling restless; or ?? severe skin reaction--fever, sore throat, swelling in your face or tongue, burning in your eyes, skin pain followed by a red or purple skin rash that spreads (especially in the face or upper body) and causes blistering and peeling. Common side effects may include: ?? dizziness, spinning sensation; ?? drowsiness, tiredness; ?? depressed mood; ?? muscle or joint pain; ?? numbness or tingly feeling; ?? nausea, stomach pain, loss of appetite; or ?? diarrhea, constipation. This is not a complete list of side effects and others may occur. Call your doctor for medical advice about side effects. You may report side effects to FDA at 3-050-FFD-8293. What other drugs will affect metolazone? Taking this medicine with other drugs that make you make you light-headed can worsen this effect. Ask your doctor before taking metolazone with a narcotic pain medicine, muscle relaxer, or medicine for anxiety or seizures. Tell your doctor about all your current medicines and any you start or stop using, especially: ?? any other blood pressure medication; ?? digoxin, digitalis; ?? furosemide or other diuretics (water pills); ?? insulin or oral diabetes medicine; ?? lithium; ?? methenamine; ?? vitamin D (at high doses); ?? a blood thinner--warfarin, Coumadin, Jantoven; ?? NSAIDs (nonsteroidal anti-inflammatory drugs)--ibuprofen (Advil, Motrin), naproxen (Aleve), celecoxib, diclofenac, indomethacin, meloxicam, and others; ?? salicylates--aspirin, Nuprin Backache Caplet, Kaopectate, KneeRelief, Pamprin Cramp Formula, Pepto-Bismol, Tricosal, Trilisate, and others; or ?? steroid medicine--prednisone and others. This list is not complete. Other drugs may interact with metolazone, including prescription and bpab-ffs-tjtnpal medicines, vitamins, and herbal products. Not all possible interactions are listed in this medication guide. Where can I get more information? Your pharmacist can provide more information about metolazone. Remember, keep this and all other medicines out of the reach of children, never share your medicines with others, and use this medication only for the indication prescribed. Every effort has been made to ensure that the information provided by [employer]. ('[employer] is accurate, up-to-date, and complete, but no guarantee is made to that effect. Drug information contained herein may be time sensitive. [employer] information has been compiled for use by healthcare practitioners and consumers in the [place] and therefore [employer] does not warrant that uses outside of the [place] are appropriate, unless specifically indicated otherwise. [employer] drug information does not endorse drugs, diagnose patients or recommend therapy. [employer] drug information is an informational resource designed to assist licensed healthcare practitioners in caring for their patients and/or to serve consumers viewing this service as a supplement to, and not a substitute for, the expertise, skill, knowledge and judgment of healthcare practitioners. The absence of a warning for a given drug or drug combination in no way should be construed to indicate that the drug or drug combination is safe, effective or appropriate for any given patient. [facility] does not assume any responsibility for any aspect of healthcare administered with the aid of information [facility] provides. The information contained herein is not intended to cover all possible uses, directions, precautions, warnings, drug interactions, allergic reactions, or adverse effects. If you have questions about the drugs you are taking, check with your doctor, nurse or pharmacist. Copyright 7551-9806 Kathy [facility] [employer]. Version: 8.01. Revision Date: 10/27/2015. Emergency Awareness and Preventative Care STROKE is an EMERGENCY Every Minute Counts Act FAST and Check for these signs: FACE Does the face look uneven? ARM Does one arm drift down? SPEECH Does their speech sound strange? TIME Call at any sign of stroke Stroke Risk Factors Atrial Fibrillation (irregular heartbeat) Diabetes Family history of stroke Heart Disease Heavy alcohol use High Blood Pressure High Cholesterol Physical inactivity and obesity Smoking Cigarette Smoking The facts are clear, cigarette smoking will shorten your life. Smoking can cause many illnesses along the way. As a healthcare provider, we recommend that you stop smoking. Assistance with quitting is available by contacting 6-352-XJDL-NOW. This is a free resource providing counseling, support, and referral. Or you may contact your personal physician. National Suicide Prevention Lifeline: The National Suicide Prevention Lifeline is a national network of local crisis centers that provides free and confidential emotional support to people in suicidal crisis or emotional distress 24 hours a day, 7 days a week. Don't Wait! Stop a Heart Attack Before it Starts What is a heart attack? A heart attack is damage or to a part of the heart from severely decreased or lack of blood flow to the heart. Over time, arteries can become narrow from the buildup of fat and cholesterol, which is called plaque. The plaque can rupture causing a blood clot to form. When the blood clot forms, the artery can become severely narrowed or completely blocked, causing a heart attack. Heart attack is the leading cause of in the [place]. 85% of muscle damage occurs within the first 2 hours. Delay in the recognition of heart attack symptoms increases the chances of . Know the early symptoms of a heart attack: Nausea Feeling of fullness in chest Jaw Pain Pain that travels down one or both arms Fatigue/being tired Anxiety Back Pain Chest pressure, squeezing, or discomfort Shortness of breath Sweating, or a cold sweat Feeling of impending doom There are unusual signs of a heart attack, too! Women, the elderly, and diabetics may present with atypical symptoms: Fainting/dizziness Weakness Confusion Risk Factors for a Heart Attack Some heart disease risk factors, such as age and family history, cannot be changed. Others, like smoking and lack of exercise, can be changed. Smoking High Cholesterol High Blood Pressure Family History Obesity Age Gender (Males are at higher risk) Lack of Exercise Diabetes Diet Stress Excessive Alcohol Intake If you or someone you know is experiencing the signs and symptoms of a heart attack, DON???T DELAY. Call immediately and seek help. If someone collapses, perform CPR! Do not attempt to drive if you are having symptoms of heart attack. Hands-Only CPR Why Hands-Only CPR? Hands-Only CPR has been shown to be as effective as conventional CPR for cardiac arrests that occur outside of a hospital. Survival depends on immediately receiving CPR from someone nearby. How do you perform Hands-Only CPR? There are two easy steps: Call if you see a teen or adult collapse Push hard and fast in the center of the chest at a beat of 100 beats per minute. Save a life! 4 WAYS TO GET AHEAD OF SEPSIS SEPSIS is a MEDICAL EMERGENCY. Time matters! Infections put you and your family at risk for a life-threatening condition called sepsis. Sepsis is the body's extreme response to an infection. It is life-threatening, and without timely treatment, sepsis can rapidly lead to tissue damage, organ failure, and . Sepsis happens when an infection you already have-in your skin, lungs, urinary tract or somewhere else-triggers a chain reaction throughout your body. 1 PREVENT INFECTIONS Take good care of chronic conditions. Talk to your doctor about getting the recommended vaccines. 2 PRACTICE GOOD HYGIENE Wash your hands frequently. Keep cuts or open sores clean and covered until they are healed. 3 KNOW THE SYMPTOMS Confusion or disorientation Shortness of breath High heart rate Fever, shivering, or feeling very cold Extreme pain or discomfort Clammy or sweaty skin 4 ACT FAST Get medical care IMMEDIATELY if you suspect sepsis or if you have an infection that is not getting better or is getting worse. To learn more about sepsis and how to prevent infections, visit www.cdc.gov/sepsis. Test Results Laboratory or Other Results This Visit (last charted value for your 01/16/2021 visit) Blood Gases 01/18/2021 11:37 AM HCO3 Art: 27.0 mmol/L -- Normal range between ( 20.0 and 26.0 ) sO2 Art: 97.3 % -- Normal range between ( 95.0 and 100.0 ) pCO2 Art: 36.8 mmHg -- Normal range between ( 35.0 and 45.0 ) pH Art: 7.47 -- Normal range between ( 7.35 and 7.45 ) pO2 Art: 96.1 mmHg -- Normal range between ( 80.0 and 100.0 ) ABG Num of Draw Attempts: 1 Acceptable Conrado's Test Art: Acceptable BE Art: 3.4 mmol/L Comment Art: supine Oxygen Flow Rate Art: 3.5 Liter Delivery Device Type Art: Cannula tHb Art: 12.9 Gram/dL -- Normal range between ( 12.0 and 18.0 ) Ventilator Mode Art: N/A Temperature, F Art: 98.6 Deg F ctO2: 17.5 mmol/L FHHb: 2.7 % Art Blood Gas (ABG) Site: Right Radial Hematology 01/30/2021 4:39 AM WBC: 8.3 K/uL -- Normal range between ( 4.5 and 10.5 ) RBC: 3.06 Million/uL -- Normal range between ( 3.93 and 5.22 ) Hct: 27.7 % -- Normal range between ( 34.1 and 44.9 ) Hgb: 8.1 g/dL -- Normal range between ( 11.2 and 15.7 ) Platelet Count: 384 K/uL -- Normal range between ( 163 and 369 ) MCH: 26.5 pg -- Normal range between ( 25.6 and 32.2 ) MCHC: 29.2 Gram/dL -- Normal range between ( 32.2 and 36.5 ) MCV: 90.5 fL -- Normal range between ( 79.0 and 94.8 ) Slide Review: No Eos %: 1.9 % -- Normal range between ( 0.0 and 7.0 ) [place] #: 0.55 K/uL -- Normal range between ( 0.16 and 1.00 ) Eos #: 0.16 x10(3)/uL -- Normal range between ( 0.00 and 0.80 ) [place] %: 6.6 % -- Normal range between ( 3.0 and 9.0 ) Baso %: 0.4 % -- Normal range between ( 0.0 and 1.5 ) Baso #: 0.03 x10(3)/uL -- Normal range between ( 0.00 and 0.20 ) RDW: 17.9 % -- Normal range between ( 11.7 and 14.9 ) Neut %: 75.7 % -- Normal range between ( 34.0 and 71.0 ) Neut #: 6.27 K/uL -- Normal range between ( 1.56 and 6.13 ) Lymph %: 14.9 % -- Normal range between ( 19.3 and 53.1 ) Lymph #: 1.23 x10(3)/uL -- Normal range between ( 1.00 and 3.90 ) MPV: 9.4 fL -- Normal range between ( 9.4 and 12.4 ) IG#: 0.04 x10(3)/uL -- Normal range between ( 0.00 and 0.05 ) IG%: 0.50 % -- Normal range between ( 0.00 and 0.60 ) 01/28/2021 5:00 AM Hypochromia: 1+ RBC Morphology: Abnormal Polychromasia: 1+ Stomatocytes: 1+ Macrocytosis: 1+ Anisocytosis: 1+ Platelet Ct Estimate: Adequate 01/23/2021 6:11 AM Band Percent Man: 5 % -- Normal range between ( 5 and 11 ) [place] Percent Man: 4 % -- Normal range between ( 4 and 5 ) Baso Percent Man: 1 % -- Normal range between ( 0 and 1 ) Neutrophil Percent Man: 77 % -- Normal range between ( 50 and 65 ) Eos Percent Man: 1 % -- Normal range between ( 0 and 3 ) [place] Percent Man: 2 % -- Normal range between ( 0 and 1 ) Poikilocytosis: 1+ Lymph Percent Man: 10 % -- Normal range between ( 24 and 44 ) 01/22/2021 6:25 AM Myelo Percent Man: 2 % -- Normal range between ( 0 and 1 ) ALYC #: 2 K/uL ANC #: 14 K/uL 01/20/2021 11:45 AM Baso [place]+ Toxic Granulation: 1+ 01/20/2021 3:50 AM NRBC: 1 nRBC: 0.040 -- Normal range between ( 0.000 and 0.012 ) 01/19/2021 3:12 AM Gemma Cells: 1+ 01/16/2021 2:[address] Oth: 0 % -- Normal range between ( 0 and 5 ) Urinalysis 01/16/2021 8:51 PM Ur RBC: 2-5 /HPF Urine Nitrite: Negative Urine Leukocyte Esterase: Moderate Urine Appearance: Clear Urine Glucose Dipstick: Negative Urine Blood Dipstick: Moderate Urine Type: U CleanCatch Urine Urobilinogen Dipstick: 1.0 EU/dL Urine Protein Dipstick: 30 Ur Squamous Epithelial Cells: 0-2 /HPF Urine Color: Yellow Ur WBC: 2-5 /HPF Urine Ketones Dipstick: Negative Ur Mucous: Trace Urine pH Dipstick: 6.0 -- Normal range between ( 6.0 and 8.0 ) Urine Bilirubin Dipstick: Negative Urine Specific [place]: 1.011 -- Normal range between ( 1.005 and 1.030 ) Microbiology 01/22/2021 12:30 PM Wound Culture: POS MRSA Surveillance: See Result 01/18/2021 1:12 PM Sputum Culture: POS 01/16/2021 5:58 PM Blood Culture: See Result 01/16/2021 5:44 PM Influenza A: Not Detected Respiratory Syncytial Virus: Not Detected Influenza B: Not Detected Influenza A H3: Not Detected Parainfluenza 3: Not Detected Influenza A H1: Not Detected Rhinovirus/Enterovirus: Not Detected Human metapneumovirus: Not Detected Parainfluenza 1: Not Detected Parainfluenza 2: Not Detected Adenovirus: Not Detected Parainfluenza 4: Not Detected Bordatella pertussis: Not Detected Coronavirus HKU1: Not Detected Coronavirus NL63: Not Detected Coronavirus OC43: Not Detected Coronavirus 229E: Not Detected Influenza A 2008 H1N1: Not Detected Mycoplasma pneumoniae: Not Detected Chlamydia pneumoniae: Not Detected SARS-CoV-2 (COVID19 PCR): Not Detected Bordatella parapertussis: Not Detected Urine Chemistry 01/16/2021 8:51 PM Creatinine Urine Random: 38 mg/dL Sodium Ur [place]: 60 mMole/Liter 01/16/2021 2:59 AM Protein Ur [place]: 103 mg/dL General Chemistry 01/31/2021 6:49 AM Creatinine Level: 1.40 mg/dL -- Normal range between ( 0.55 and 1.02 ) Sodium Level: 138 mmol/L -- Normal range between ( 136 and 146 ) Potassium Level: 3.9 mmol/L -- Normal range between ( 3.5 and 5.1 ) Chloride Level: 106 mmol/L -- Normal range between ( 102 and 112 ) Carbon Dioxide Level: 26 mmol/L -- Normal range between ( 21 and 32 ) Anion Gap: 10 -- Normal range between ( 9 and 20 ) Bun/Creatinine: 17.9 -- Normal range between ( 8.0 and 20.0 ) Calcium Level: 8.5 mg/dL -- Normal range between ( 8.4 and 10.1 ) eGFR : 46 mL/min/1.73m2 eGFR NonAfrican: 38 mL/min/1.73m2 Glucose Level: 85 mg/dL -- Normal range between ( 74 and 106 ) Blood Urea Nitrogen: 25 mg/dL -- Normal range between ( 7 and 22 ) 01/30/2021 4:39 AM Calcium Ionized: 1.18 mmol/L -- Normal range between ( 1.12 and 1.32 ) Magnesium Level: 1.8 mg/dL -- Normal range between ( 1.5 and 2.4 ) 01/29/2021 5:17 AM Bilirubin Total: 0.4 mg/dL -- Normal range between ( 0.2 and 1.2 ) A/G Ratio: 0.4 -- Normal range between ( 1.1 and 2.5 ) ALT: 18 Units/Liter -- Normal range between ( 13 and 56 ) AST: 14 Units/Liter -- Normal range between ( 5 and 37 ) Globulin: 4.5 Gram/dL -- Normal range between ( 1.5 and 4.5 ) Alk Phos: 58 Units/Liter -- Normal range between ( 27 and 136 ) Protein Total: 6.4 Gram/dL -- Normal range between ( 6.4 and 8.2 ) Albumin Level: 1.9 Gram/dL -- Normal range between ( 3.4 and 5.0 ) 01/27/2021 3:19 AM Phosphorus: 3.9 mg/dL -- Normal range between ( 2.5 and 4.9 ) 01/26/2021 5:18 PM Glucose POC2: 83 mg/dL -- Normal range between ( 70 and 110 ) Device Comment 1: Device Comment 1 01/19/2021 3:12 AM Lactic Acid Level: 2.0 mmol/L -- Normal range between ( 0.4 and 2.0 ) Cardiac Specific Markers 01/16/2021 5:43 PM Troponin I Ultra: <0.015 ng/mL -- Normal range between ( 0.015 and 0.045 ) ProBNP: 1385 pg/mL -- Normal range between ( 0 and 125 ) Coagulation 01/21/2021 3:04 AM PTT Heparin: 75.6 Second(s) -- Normal range between ( 50.0 and 75.0 ) 01/20/2021 11:45 AM INR: 1.1 -- Normal range between ( 0.9 and 1.2 ) PT: 11.9 Second(s) -- Normal range between ( 9.2 and 12.0 ) Endocrinology 01/17/2021 10:45 AM TSH: 0.139 mcInt Units/mL -- Normal range between ( 0.358 and 3.740 ) Iron Studies 01/17/2021 3:10 AM % Iron Saturation: 12.9 % -- Normal range between ( 15.0 and 55.0 ) TIBC: 519.0 mcg/dL -- Normal range between ( 250.0 and 450.0 ) Iron Level: 67 mcg/dL -- Normal range between ( 50 and 170 ) 01/16/2021 10:38 PM Ferritin Level: 408.3 ng/mL -- Normal range between ( 8.0 and 252.0 ) Therapeutic Drugs 01/26/2021 2:48 PM Vancomycin Trough: 21.7 mcg/mL -- Normal range between ( 5.0 and 15.0 ) Immuno Serology 01/17/2021 5:44 AM BASIA: Negative C4: 26 mg/dL C3: 167 mg/dL 01/17/2021 3:10 AM CH50 Complement: >60 Computed Tomography 01/17/2021 11:[address] Abdomen Pelvis WO: CT Abdomen Pelvis WO Diagnostic Radiology 01/29/2021 10:41 AM CR Chest 1 Vw Portable: CR Chest 1 Vw Portable Ultrasound 01/17/2021 9:35 AM US Renal Comp: US Renal Comp Echo 01/17/2021 12:36 PM EC Echo Complete: EC Echo Complete Vascular Ultrasound 01/22/2021 1:30 PM VL OTTO Ankle Brachial Index BILAT: VL OTTO Ankle Brachial Index BILAT 01/22/2021 12:43 PM VL Art LE Duplex Limited BILAT: VL Art LE Duplex Limited BILAT 01/19/2021 9:05 AM VL Veins LE Duplex BILAT: VL Veins LE Duplex BILAT Patient Name:CAHNI VELASQUEZ I have received and understand this information and was given the opportunity to ask questions. Patient/Cable Tool Driller Name: Patient/Cable Tool Driller Signature: Relationship to Patient: Clinician/Hospital Cable Tool Driller Signature: Date: documented in this encounter Plan of Treatment Not on file documented as of this encounter Visit Diagnoses Not on filedocumented in this encounter Care Teams Editing Internship Relationship Specialty Start Date End Date Yuan Mccracken MD [facility] [place] [address] PCP - General Family Medicine 09/23/22 documented as of this encounter
--- OUTSIDE RECORDS SUMMARY | 2025-02-15 10:09 | XMS_ITS | Clinical Summary ---
Author Organization Healthcare Address [address] [place] [address] Care Team Providers Care Automatic Grinder Operator Name Role Phone Yuan Mccracken MD Primary Care Provider [phone] Allergies No known active allergies Social History Tobacco Use Types Packs/Day Years Used Date Smoking Tobacco: Never Assessed Comments Unknown Sex and Gender Information Value Date Recorded Sex Assigned at Not on file Legal Sex Female 8:38 PM EDT Gender Identity Not on file Sexual Orientation Not on file Last Filed Vital Signs Vital Sign Reading Time Taken Comments Blood Pressure 125/64 09/13/2022 8:28 AM EST Pulse 61 09/13/2022 8:28 AM EST Temperature - - Respiratory Rate 22 09/13/2022 8:28 AM EST Oxygen Saturation 94% 09/13/2022 8:28 AM EST Inhaled Oxygen Concentration - - Weight 124 kg (273 lb) 09/13/2022 7:25 AM EST Height 162.6 cm (5' 4 ) 09/13/2022 7:25 AM EST Body Mass Index 46.86 09/13/2022 7:25 AM EST Plan of Treatment Health Maintenance Due Date Last Done Comments [facility]-Bone Density Scan 1958 [facility]-Depression Screening 1958 [facility]-Hepatitis C Screening 1958 [facility]-Infant/Child/Adol SDOH Screenings 1958 [facility]-Obesity Intervention 1964 [facility]- SDOH Screenings 1976 [facility]-Adult SDOH Screenings 1976 [facility]-DTaP,Tdap,and Td Vaccine s (1 - Tdap) 1977 CT Colonography 2003 Colonoscopy 2003 FIT-DNA 2003 FIT 2003 FOBT 2003 Sigmoidoscopy 2003 [facility]-Colorectal Cancer Screening 2003 [facility]-Breast Cancer Screening 2008 [facility]-Pneumococcal Vaccine: 50 + Years (1 of 1 - PCV) 2008 [facility]-Zoster Vaccines (1 of 2) 2008 [facility]-RSV Vaccine: 60+ Years o r (1 - Risk 60-74 years 1-dose series) 2018 CSV-BBEHV-43 Vaccine ( - 2023- season) 2024 02/18/2022, 06/05/2021, 04/22/2021 [facility]-Influenza Vaccine (Seaso n Ended) 2025 HPV Vaccines Aged Out No longer eligi ble based on patient's age to complete this topic [facility]-HIB Vaccines Aged Out No longer e ligible based on patient's age to complete this topic [facility]-Hepatitis A Vaccines Aged Out No longer eligible based on patient's age to complete this topic [facility]Y-IPV Vaccines Aged Out No longer e ligible based on patient's age to complete this topic [facility]-Rotavirus Vaccines Aged Out No lo nger eligible based on patient's age to complete this topic Insurance Care Teams Automatic Grinder Operator Relationship Specialty Start Date End Date Yuan Mccracken MD [address] [phone] (work) PCP - General 09/13/22
--- OUTSIDE RECORDS SUMMARY | 2025-02-15 10:09 | XMS_ITS | Encounter Summary ---
Author Organization [facility] In iatives Address [address] [place] [address] Care Team Providers Care Cold Rolling Coordinator Name Role Phone Yuan Mccracken MD Primary Care Provider Encounter Details Date Type Department Care Team (Late st Contact Info) Description 01/30/2021 Transcribed Document [facility] [place] Family Medicine [address] [place] [address] ProviderPerry MD [address], [place] [address] Social History Tobacco Use Types Packs/Day Years Used Date Smoking Tobacco: Never Assessed Comments Unknown Sex and Gender Information Value Date Recorded Sex Assigned at Not on file Legal Sex Female 12:32 PM CDT Gender Identity Not on file Sexual Orientation Not on file documented as of this encounter Miscellaneous Notes * Cerner Conversion Note - Perry Nunes MD - 01/30/2021 10:18 AM CDT On Going Discharge Planning Entered On: 01/30/2021 10:21 EDT Performed On: 01/30/2021 10:18 EDT by Maryjane Gonzalez V, Mental Health Professional Ux Engineer Care Management Progress Note Discharge Arrangements : Patient Post-Acute Information Patient Name: CHANI VELASQUEZ Gender: Female : 56 Age: 60 Years No Post-Acute Placement(s) Listed No Post-Acute Service(s) Listed No [place] Referral(s) Listed Discharge Options Discussed with Patient : Acute rehabilitation, Home Health, [facility] Barriers to Discharge Identified : Clinical Condition of Patient Barriers to Discharge Unresolved : Clinical Condition of Patient Is the Patient Meeting Medical Necessity : Yes Physician Agreeable to Move Forward with D/C Plan? : Yes Did you Attend Multidisciplinary Rounds? : Yes Maryjane Gonzalez Social Worker Ux Engineer - 01/30/2021 10:18 EDT Narrative Progress Note Narrative Progress Note : HD#13, elos-4, RRS-Moderate, Boost-[address] Gillis with Nephrology to see if patient is medically ready for dc to [facility] even though she is receiving IV albumin. Unable to reach him. Pt is scheduled to transfer to [facility] on Tuesday, 01/31 at 10am. If patient isn't medically ready per Nephology, [facility] transport will need to be canceled. If pt can transfer, RN to call report: [phone]. Fax DC summary fax to: [phone]. Maryjane Gonzalez Social Worker Ux Engineer - 01/30/2021 16:45 EDT Historical Progress Note : HD#12, elos-4, RRS-Moderate, Boost-3 [facility] has accepted pt for rehab and she is agreeable to rehab placement. Unable to obtain transportation until Tuesday at 10am via [facility] Maryjane Gonzalez Social Worker Ux Engineer - 01/29/21 16:32:32 HD#11, elos-4, RRS-Moderate, Boost-3 ID following and stopped IV Vanc and Zosyn. po doxy continued. Nephrology following. leg wounds improving with mist therapy with PT. CM sent updated clinical/therapy updates to all [facility] and [facility] for possible rehab palcement. Lack of insurance is a HUGE placement barrier. No current bed offers. CM to follow Maryjane Gonzalez Social Worker Ux Engineer - 01/28/21 15:01:06 HD#10, elos-4, RRS-Moderate, Boost-3 ID following. IV Vanc and Zosyn and po doxy. Per nephrology, renal function stable. Wound care and mist therapy with PT. CM sent updated clinical/therapy updates to all [facility] and [place], [place] facilities. Lack of insurance is a huge placement barrier. CM called [facility]. Left message for admit coordinator. Patient's is a resident at [facility]. CM hopes that they will accept patient as well with pending Medicaid. CM to follow Maryjane Gonzalez Social Worker Ux Engineer - 01/27/21 14:23:52 HD#6, elos-4, RRS-Moderate, Boost-3 [...] and insurance status. Maryjane Gonzalez Social Worker Ux Engineer - 01/26/21 13:44:57 HD#6, ELOS-not recorded, RRS-Moderate, Boost-3 ID following and recommending culture right leg wound and possible vascular consult. On IV Vanc and Zosyn. 3L 02/NC.,wound care. PT/OT recommending rehab. Referrals sent via [facility] to [facility] and SNF. Patient pending Medicaid. Placement susanna be difficult due to no insurance. is a resident at [facility]. Referral sent there too. CM to follow -- Maryjane Gonzalez Social Worker Ux Engineer - 01/23/21 12:17:40 HD#5, ELOS-not recorded, RRS-Moderate, Boost-3 Patient on 2L 02/NC. IV Abx-Vanc and Zosyn. Wound care by PT. PT/OT recommending rehab. CM sent referrals via [employer]. Patient's is a resident at [facility]. Patient is self pay and has no health or presription coverage. Placement may be difficult due to pending Medicaid status. CM to follow patient's [facility] placement options. Maryjane Gonzalez Social Worker Ux Engineer - 01/22/21 13:50:41 Maryjane Gonzalez Social Worker Ux Engineer - 01/30/2021 10:18 EDT documented in this encounter Plan of Treatment Not on file documented as of this encounter Visit Diagnoses Not on filedocumented in this encounter Care Teams Cold Rolling Coordinator Relationship Specialty Start Date End Date Yuan Mccracken MD [facility] [place] [address] PCP - General Family Medicine 09/23/22 documented as of this encounter
--- OUTSIDE RECORDS SUMMARY | 2025-02-15 10:09 | XMS_ITS | Encounter Summary ---
Author Organization [facility] Address [address] [place] [address] Care Team Providers Care Test And Turn Up Technician Name Role Phone Yuan Mccracken MD Primary Care Provider [phone] Encounter Details Date Type Department Care Team (Late st Contact Info) Description 01/18/2021 Transcribed Document [facility] [address] [place] [address] ProviderPerry MD [address], [place] [address] Social History Tobacco Use Types Packs/Day Years Used Date Smoking Tobacco: Never Assessed Comments Unknown Sex and Gender Information Value Date Recorded Sex Assigned at Not on file Legal Sex Female 12:32 PM CDT Gender Identity Not on file Sexual Orientation Not on file documented as of this encounter Miscellaneous Notes * Cerner Conversion Note - Perry Nunes MD - 01/18/2021 12:46 PM CDT Consult Phone Call Documentation Entered On: 01/19/2021 9:19 EDT Performed On: 01/19/2021 8:00 EDT by Charisse Granger Gas Pump Attendant-Health Unit Coord Phone Call for Consults Consult Phone Call/Page Attempt : First call Charisse Granger Care Asst-Health Unit Coord - 01/19/2021 9:19 EDT Electronically signed by Gayle Laguerre Conversion Community Coordinator For High School Cerner at 12/07/2022 6:28 PM CDT documented in this encounter Plan of Treatment Not on file documented as of this encounter Visit Diagnoses Not on filedocumented in this encounter Care Teams Test And Turn Up Technician Relationship Specialty Start Date End Date Yuan Mccracken MD [address] [place] [address] PCP - General Family Medicine 09/23/22 documented as of this encounter
--- OUTSIDE RECORDS SUMMARY | 2025-02-15 10:09 | XMS_ITS | Clinical Summary ---
Author Organization [facility] Address [address] [place] [address] Phone Care Team Providers Care Corridor Redevelopment Manager Name Role Phone Unavailable Unavailable Conditions or Problems No information available. Medications No information available. Medications Administered No information available. Allergies, Adverse Reactions, Alerts No information available. Results No information available. Plan of Care No information available. Procedures No information available. Vital Signs No information available. Immunizations No information available. Advance Directives No information available.
--- OUTSIDE RECORDS SUMMARY | 2025-02-15 10:09 | XMS_ITS | Encounter Summary ---
Author Organization [facility] In iatives Address [address] [place] [address] Care Team Providers Care Library Supervisor Name Role Phone Yuan Mccracken MD Primary Care Provider [phone] Encounter Details Date Type Department Care Team (Late st Contact Info) Description 01/18/2021 Transcribed Document [facility] Family Medicine [address] [place] [address] ProviderPerry MD [address] [place], [place] [id number] Social History Tobacco Use Types Packs/Day Years Used Date Smoking Tobacco: Never Assessed Comments Unknown Sex and Gender Information Value Date Recorded Sex Assigned at Not on file Legal Sex Female 12:32 PM CDT Gender Identity Not on file Sexual Orientation Not on file documented as of this encounter Miscellaneous Notes * Cerner Conversion Note - Perry Nunes MD - 01/18/2021 5:00 PM CDT Chart Check - Review Order Profile Entered On: 01/18/2021 19:49 EDT Performed On: 01/18/2021 19:49 EDT by Katty Briceno, RN Chart Check Powerplans Initiated/Discontinued as Appropriate : Yes All Active Orders Reviewed : Yes Katty Briceno RN - 01/18/2021 19:49 EDT Electronically signed by Gayle Laguerre Conversion Telegraph And Teletype Operator Cerner at 12/07/2022 6:03 PM CDT documented in this encounter Plan of Treatment Not on file documented as of this encounter Visit Diagnoses Not on filedocumented in this encounter Care Teams Library Supervisor Relationship Specialty Start Date End Date Yuan Mccracken MD [address] [place] [address] PCP - General Family Medicine 09/23/22 documented as of this encounter
--- OUTSIDE RECORDS SUMMARY | 2025-02-15 10:09 | XMS_ITS | Encounter Summary ---
Author Organization [facility] [employer] [facility] Address [address] [place] [address] Care Team Providers Care Social Media Editor Name Role Phone Yuan Mccracken MD Primary Care Provider [phone] Encounter Details Date Type Department Care Team (Late st Contact Info) Description 02/02/[address] [facility] [place] [address] [place] [address] ProviderPerry MD [address], [place] [id number] Social History Tobacco Use Types Packs/Day Years Used Date Smoking Tobacco: Never Assessed Comments Unknown Sex and Gender Information Value Date Recorded Sex Assigned at Not on file Legal Sex Female 12:32 PM CDT Gender Identity Not on file Sexual Orientation Not on file documented as of this encounter Miscellaneous Notes * Cerner Conversion Note - Perry Nunes MD - 02/02/2021 3:27 PM CDT Event Note Entered On: 02/02/2021 15:31 EDT Performed On: 02/02/2021 15:27 EDT by GENEVIEVE PENNINGTON RN-NAVIGATOR CANCER Event Note Event Date/Time : 02/02/2021 15:27 EDT Event Location : Other: Lung Care Navigation Consult. Description of Event : Lung Care Navigation Consult order received. CT A/P Result reviewed. Patient will make follow up appointment with Dr. Feliz's office. Result faxed to 's office and requested for future follow up since nodule is <[address] patient in navigation program. Thanks for consult. GENEVIEVE PENNINGTON, RN-NAVIGATOR CANCER - 02/02/2021 15:27 EDT Electronically signed by Carlotta [facility] Conversion Machine Design Checker Cerner at 12/07/2022 6:09 PM CDT documented in this encounter Plan of Treatment Not on file documented as of this encounter Visit Diagnoses Not on filedocumented in this encounter Care Teams Social Media Editor Relationship Specialty Start Date End Date Yuan Mccracken MD [address] [place] [address] PCP - General Family Medicine 09/23/22 documented as of this encounter
--- OUTSIDE RECORDS SUMMARY | 2025-02-15 10:09 | XMS_ITS | Encounter Summary ---
Author Organization [facility] In iatives Address [address] [place] [address] Care Team Providers Care Seaweed Harvester Name Role Phone Yuan Mccracken MD Primary Care Provider [phone] Encounter Details Date Type Department Care Team (Late st Contact Info) Description 01/31/2021 Transcribed Document [facility] [place] Family Medicine [address] [place] [address] ProviderPerry MD [address] [place], [place] [id number] Social History Tobacco Use Types Packs/Day Years Used Date Smoking Tobacco: Never Assessed Comments Unknown Sex and Gender Information Value Date Recorded Sex Assigned at Not on file Legal Sex Female 12:32 PM CDT Gender Identity Not on file Sexual Orientation Not on file documented as of this encounter Miscellaneous Notes * Cerner Conversion Note - Perry Nunes MD - 01/31/2021 5:00 AM CDT Chart Check - Review Order Profile Entered On: 01/31/2021 6:33 EDT Performed On: 01/31/2021 5:00 EDT by ANTONIO OTERO, RN Chart Check Powerplans Initiated/Discontinued as Appropriate : Yes All Active Orders Reviewed : Yes ANTONIO OTERO RN - 01/31/2021 6:33 EDT Electronically signed by Carlotta [facility] Conversion Adjunct Teacher Cerner at 12/07/2022 6:14 PM CDT documented in this encounter Plan of Treatment Not on file documented as of this encounter Visit Diagnoses Not on filedocumented in this encounter Care Teams Seaweed Harvester Relationship Specialty Start Date End Date Yuan Mccracken MD [address] [place] [address] PCP - General Family Medicine 09/23/22 documented as of this encounter
--- OUTSIDE RECORDS SUMMARY | 2025-02-15 10:09 | XMS_ITS | Encounter Summary ---
Author Organization [employer] Address [address] [place] [address] Care Team Providers Care Flight Radio Officer Name Role Phone Yuan Mccracken MD Primary Care Provider [phone] Encounter Details Date Type Department Care Team (Late st Contact Info) Description 01/26/2021 Transcribed Document [facility] [place] Family Medicine [place] [address] ProviderPerry MD [address] [place] [address] Social History Tobacco Use Types Packs/Day Years Used Date Smoking Tobacco: Never Assessed Comments Unknown Sex and Gender Information Value Date Recorded Sex Assigned at Not on file Legal Sex Female 12:32 PM CDT Gender Identity Not on file Sexual Orientation Not on file documented as of this encounter Miscellaneous Notes * Cerner Conversion Note - Perry Nunes MD - 01/26/2021 4:25 PM CDT Patient: CHANI VELASQUEZ Age: 60 [...] per PT notes, leukocytosis improving, OTTO's abnormal PAST MEDICAL HISTORY Chronic LE edema Nephrolithiasis [...] [id number], PRN: Wheezing Eliquis: 5 mg, Oral, [id number] Lac-Hydrin 12% topical lotion: 1 Application, Topical, BID Lasix: 40 mg, Oral, BID MiraLax: 17 Gram, Oral, Daily, PRN: Constipation [...] mL: 1,750 mg, 250 mL/Hr, IV Piggyback, [id number] Physical Examination VS/Measurements Vitals Signs (last 24 hrs) Last Charted Minimum Maximum Temp 97.9 (JAN 26 12:21) 97.9 (JAN 26 12:21) 99.1 (JAN 25 21:42) Apical HR 68 (JAN 26 08:32) 68 (JAN 26 08:32) 71 (JAN 25 21:46) Mon HR 67 (JAN 26 12:21) 62 (JAN 26 06:07) 73 (JAN 25 17:23) Resp Rate 18 (JAN 26 12:21) 18 (JAN 25 17:23) 18 (JAN 25 17:23) SBP 117 (JAN 26 12:21) 113 (JAN 25 17:23) 140 (JAN 26 06:07) DBP 63 (JAN 26 12:21) 63 (JAN 26 12:21) 84 (JAN 26 06:07) MAP 80 (JAN 26 12:21) 80 (JAN 26 12:21) 102 (JAN 26 06:07) SpO2 100 (JAN 26 12:21) 95 (JAN 25 21:42) 100 (JAN 25 17:23) , Measurements from flowsheet : Measurements 01/25/2021 4:00 EDT Height Source Stated Height Entry Format [place] Height/Length, PAKISTANI (ft) 5 ft Height/Length PAKISTANI 4 Inch CLINICALHEIGHT 162.56 cm Routine Weight Source Bed scale Routine Weight Entry Format [place] Routine Weight, Pounds 277 lb Routine Weight Calculation 125.91 kg Body Mass Index (BMI), Routine 47.65 kg/m2 Body Surface Area (BSA), Routine 2.25 m2 General: Alert and oriented, No acute [...] Labs (Last four charted values) WBC H 11.6 (JAN 26) H 12.4 (JAN 06) H 13.0 (JAN 05) H 14.7 (JAN 23) HB L 8.3 (JAN 26) L 8.0 (JAN 06) L 8.4 (JAN 05) L 8.8 (TOM 04) HCT L 27.7 (TOM 07) L 26.8 (TOM 06) L 29.0 (TOM 05) L 29.8 (TOM 04) Plt H 414 (TOM 07) H 392 (TOM 06) H 399 (TOM 05) H 378 (TOM 04) Na 141 (TOM 07) 137 (TMO 06) 137 (TOM 05) 137 (TOM 04) K 4.5 (TOM 07) 4.5 (TOM 06) 4.4 (TOM 05) 4.5 (TOM 04) Cl 110 (TOM 07) 110 (TOM 06) 109 (TOM 05) 108 (TOM 04) CO2 24 (TOM 07) 21 (TOM 06) 24 (TOM 05) 24 (TOM 04) BUN 22 (TOM 07) H 23 (TOM 06) H 26 (TOM 05) H 29 (TOM 04) Cr H 1.40 (TOM 07) H 1.30 (TOM 06) H 1.40 (TOM 05) H 1.20 (TOM 04) Glu R 81 (TOM 07) 86 (TOM 06) H 124 (TOM 05) 98 (TOM 04) Ca L 8.3 (TOM 07) L 7.9 (TOM 06) L 7.9 (TOM 05) L 8.0 (TOM 04) Lactic 2.0 (JANUARY 19) C 2.5 (JANUARY 17) C 2.3 (JANUARY 17) C 2.6 (JANUARY 16) PT 11.9 (JAN 01) INR 1.1 (JAN 20) AST 20 (TOM 06) 25 (TOM 05) H 50 (JANUARY 19) 28 (JANUARY 16) ALT 21 (TOM 06) 28 (TOM 05) 36 (JANUARY 19) 23 (JANUARY 16) ALK P 53 (TOM 06) 57 (TOM 05) 86 (JANUARY 19) 128 (JANUARY 16) T Bili 0.9 (TOM 06) 0.5 (TOM 05) 0.5 (JANUARY 19) 0.5 (JANUARY 16) PTN L 5.9 (TOM 06) L 6.3 (TOM 05) L 6.2 (JANUARY 19) H 9.3 (JANUARY 16) ALB L 1.5 (TOM 06) L 1.5 (TOM 05) L 1.4 (JANUARY 19) L 1.4 (JANUARY 18) Troponin <0.015 (JANUARY 16) . Impression and Plan IMPRESSION -- Bilateral LE cellulitis R>>L Infected ulcer right posterior calf Fetid odor desite therapy with vancomycin and zosyn Suspect ischemic etiology Corynebacterium from wound is a likely contaminant -- Right perihilar infiltrate -- Acute/ ?chronic kidney disease- improving -- Nephrolithiasis -- Claudication -- Prior tobacco -- BMI 44 -- RLL lung nodule RECOMMENDATIONS -- since she is improving on current regimen of vanc and zosyn I will continue this -- PT consult for mist therapy to right leg- they have recommended whirlpool as an alternative -- s/p vascular consult 01/23 -- probiotic documented in this encounter Plan of Treatment Not on file documented as of this encounter Visit Diagnoses Not on filedocumented in this encounter Care Teams Flight Radio Officer Relationship Specialty Start Date End Date Yuan Mccracken MD [facility] [place] [address] PCP - General Family Medicine 09/23/22 documented as of this encounter
--- OUTSIDE RECORDS SUMMARY | 2025-02-15 10:09 | XMS_ITS | Encounter Summary ---
Author Organization [facility] [employer] Address [address] [place] [address] Care Team Providers Care Bar Catcher Name Role Phone Yuan Mccracken MD Primary Care Provider [phone] Encounter Details Date Type Department Care Team (Late st Contact Info) Description 01/29/2021 Transcribed Document [facility] [place] Family Medicine [address] [place] [address] ProviderPerry MD [address] [place], [place] [address] Social History Tobacco Use Types Packs/Day Years Used Date Smoking Tobacco: Never Assessed Comments Unknown Sex and Gender Information Value Date Recorded Sex Assigned at Not on file Legal Sex Female 12:32 PM CDT Gender Identity Not on file Sexual Orientation Not on file documented as of this encounter Miscellaneous Notes * Cerner Conversion Note - Perry Nunes MD - 01/29/2021 4:00 AM CDT Height and Weight, Routine Entered On: 01/29/2021 5:59 EDT Performed On: 01/29/2021 4:00 EDT by PAYTON MONIQUE RN-PATIENT CARE BEDSIDE NON-EXEMPT Height and Weight, Routine Routine Weight Source : Bed scale Routine Weight Entry Format : [place] Routine Weight, Pounds : 267 lb Routine Weight, Ounces : 5 oz Routine Weight Calculation : 121.51 kg Height Source : Stated Height Entry Format : [place] Height, Feet : 5 ft Height, Inches : 4 Inch Clinical Height : 162.56 cm Body Surface Area (BSA), Routine : 2.21 m2 Body Mass Index (BMI), Routine : 45.98 kg/m2 PAYTON MONIQUE, RN-PATIENT CARE BEDSIDE NON-EXEMPT - 01/29/2021 5:59 EDT Electronically signed by Carlotta [facility] Conversion Junk Dealer Cerner at 12/07/2022 6:03 PM CDT documented in this encounter Plan of Treatment Not on file documented as of this encounter Visit Diagnoses Not on filedocumented in this encounter Care Teams Bar Catcher Relationship Specialty Start Date End Date Yuan Mccracken MD [address] [place] [phone] PCP - General Family Medicine 09/23/22 documented as of this encounter
--- OUTSIDE RECORDS SUMMARY | 2025-02-15 10:09 | XMS_ITS | Encounter Summary ---
Author Organization [facility] [employer] Address [address] [place] [address] Care Team Providers Care Durable Medical Equipment Technician Name Role Phone Yuan Mccracken MD Primary Care Provider [phone] Encounter Details Date Type Department Care Team (Late st Contact Info) Description 01/23/2021 Transcribed Document [facility] [place] Family Medicine [address] [place] [address] ProviderPerry MD [address] [place] [address] Social History Tobacco Use Types Packs/Day Years Used Date Smoking Tobacco: Never Assessed Comments Unknown Sex and Gender Information Value Date Recorded Sex Assigned at Not on file Legal Sex Female 12:32 PM CDT Gender Identity Not on file Sexual Orientation Not on file documented as of this encounter Miscellaneous Notes * Cerner Conversion Note - Perry Nunes MD - 01/23/2021 9:42 AM CDT UM Authorization Entered On: 01/23/2021 9:42 EDT Performed On: 01/23/2021 9:42 EDT by DWIGHT PERALTA, RN-Utilization Review Primary Insurance Authorization Authorization and Policy Numbers : Insurance 1 Health Plan: MEDICAID PENDING Policy Number: [id number] Authorization Number: Insurance Primary Name : Self-pay Authorized Service Begin Date-Primary : 01/16/2021 EDT Authorization Comments-Primary : MEDICAID PENDING Historical Authorization Comments-Primary : Comment 1: SELF PAY (DWIGHT PERALTA, RN-Utilization Review 01/22/2021 08:29) Comment 2: SELF PAY (DWIGHT PERALTA RN-Utilization Review 01/21/2021 08:19) Comment 3: Self pay at the time of review (CARMEN MARLOW RN 01/20/2021 13:51) DWIGHT PERALTA RN-Utilization Review - 01/23/2021 9:42 EDT Electronically signed by [facility] Conversion Parts Chaser Cerner at 12/07/2022 6:19 PM CDT documented in this encounter Plan of Treatment Not on file documented as of this encounter Visit Diagnoses Not on filedocumented in this encounter Care Teams Durable Medical Equipment Technician Relationship Specialty Start Date End Date Yuan Mccracken MD [address] [place] [address] PCP - General Family Medicine 09/23/22 documented as of this encounter
--- OUTSIDE RECORDS SUMMARY | 2025-02-15 10:09 | XMS_ITS | Encounter Summary ---
Author Organization [facility] [employer] Address [address] [place] [address] Care Team Providers Care Mat Maker Name Role Phone Yuan Mccracken MD Primary Care Provider [phone] Encounter Details Date Type Department Care Team (Late st Contact Info) Description 01/25/2021 Transcribed Document [facility] [address] [place] [address] ProviderPerry MD [address] [place], [place] [id number] Social History Tobacco Use Types Packs/Day Years Used Date Smoking Tobacco: Never Assessed Comments Unknown Sex and Gender Information Value Date Recorded Sex Assigned at Not on file Legal Sex Female 12:32 PM CDT Gender Identity Not on file Sexual Orientation Not on file documented as of this encounter Miscellaneous Notes * Cerner Conversion Note - Perry Nunes MD - 01/25/2021 4:00 AM CDT Height and Weight, Routine Entered On: 01/25/2021 5:10 EDT Performed On: 01/25/2021 4:00 EDT by Marcella Hernandez RN-TRAVELER Height and Weight, Routine Routine Weight Source : Bed scale Routine Weight Entry Format : [place] Routine Weight, Pounds : 277 lb Routine Weight Calculation : 125.91 kg Height Source : Stated Height Entry Format : [place] Height, Feet : 5 ft Height, Inches : 4 Inch Clinical Height : 162.56 cm Body Surface Area (BSA), Routine : 2.25 m2 Body Mass Index (BMI), Routine : 47.65 kg/m2 Marcella Hernandez RN-TRAVELER - 01/25/2021 5:07 EDT Electronically signed by Carlotta, [facility] Conversion Bilingual Social Worker Cerner at 12/07/2022 6:06 PM CDT documented in this encounter Plan of Treatment Not on file documented as of this encounter Visit Diagnoses Not on filedocumented in this encounter Care Teams Mat Maker Relationship Specialty Start Date End Date Yuan Mccracken MD [address] [place] [phone] PCP - General Family Medicine 09/23/22 documented as of this encounter
--- OUTSIDE RECORDS SUMMARY | 2025-02-15 10:09 | XMS_ITS | Encounter Summary ---
Author Organization [facility] [employer] Address [address] [place] [address] Care Team Providers Care Reverse Unit Operator Fisherman Name Role Phone Yuan Mccracken MD Primary Care Provider [phone] Encounter Details Date Type Department Care Team (Late st Contact Info) Description 01/31/2021 Transcribed Document [facility] [place] [address] ProviderPerry MD [address] [place], [place] [address] Social History Tobacco Use Types Packs/Day Years Used Date Smoking Tobacco: Never Assessed Comments Unknown Sex and Gender Information Value Date Recorded Sex Assigned at Not on file Legal Sex Female 12:32 PM CDT Gender Identity Not on file Sexual Orientation Not on file documented as of this encounter Miscellaneous Notes * Cerner Conversion Note - Perry Nunes MD - 01/31/2021 5:25 PM CDT Discharge Summary, PT Entered On: 01/31/2021 17:28 EDT Performed On: 01/31/2021 17:25 EDT by VISHAL GÓMEZ, PT Discharge Summary Discharge Summary Provider Notified : Physical Therapy Reason for Discharge : Discharged from hospital Discharged to, Therapy : Unit, rehabilitation Discharge Equipment, PT : None Discharge Summary Comment, PT : Pt met 3 of 4 STG, both for mobility and edeman, and 3 of 5 LTG for mobility and edema. Pt to continue to work on resuming independent mobility and edema control at Rehab. Pt amb up to 90' with RW at time of d/c. VISHAL GÓMEZ, PT - 01/31/2021 17:25 EDT Short Term Goals Mobility/Bed Mobility STG PT Grid Goal #1 Goal #4 Activity : Supine to sit Assist : Assist, minimal Date to Meet : 01/26/2021 EDT Goal Status : Goal met Date Met : 01/21/2021 EDT Comment : See wound goals for MIST and compression wraps below VISHAL GÓMEZ, PT - 01/31/2021 17:25 EDT VISHAL GÓMEZ, PT - 01/31/2021 17:25 EDT Ambulation STG Grid Goal #1 Device : Walker, front wheel Distance : 50 ft Assist : Assist, minimal Date to Meet : 01/26/2021 EDT Goal Status : Goal met Date Met : 01/29/2021 EDT VISHAL GÓMEZ, PT - 01/31/2021 17:25 EDT Other PT STG Grid Goal #1 Goal #2 Goal : Open area to measure 1.5cmX0.8cm BLE malleoli will be < 29.0cm Date to Meet : 01/28/2021 EDT 01/28/2021 EDT Goal Status : Goal met Not met Date Met : 01/26/2021 EDT VISHAL GÓMEZ, PT - 01/31/2021 17:25 EDT VISHAL GÓMEZ, PT - 01/31/2021 17:25 EDT Usp Goals Mobility/Bed Mobility LTG PT Grid Goal #1 Goal #2 Goal #4 Activity : Supine to sit Sit to stand Assist : Independent, modified Independent, modified Date to Meet : 02/02/2021 EDT 02/02/2021 EDT Goal Status : Goal met Not met Date Met : 01/29/2021 EDT Comment : See wound goals for MIST and compression wraps below VISHAL GÓMEZ, PT - 01/31/2021 17:25 EDT VISHAL GÓMEZ, PT - 01/31/2021 17:25 EDT VISHAL GÓMEZ, PT - 01/31/2021 17:25 EDT Ambulation LTG Grid Goal #1 Device : Walker, front wheel Distance : 150 ft Assist : Independent, modified Date to Meet : 02/02/2021 EDT Goal Status : Not met VISHAL GÓMEZ, PT - 01/31/2021 17:25 EDT Other PT LTG Grid Goal #1 Goal #2 Goal #3 Other : Open area to measure 1cmX0.5cm BLE fullest calf will be < 51.0cm Coccyx wound will measure 0.5 x 0.5 cm or less Date to Meet : 02/04/2021 EDT 02/04/2021 EDT 02/09/2021 EDT Goal Status : Goal met Goal met Not met Date Met : 01/26/2021 EDT 01/25/2021 EDT VISHAL GÓMEZ, PT - 01/31/2021 17:25 EDT VISHAL GÓMEZ, PT - 01/31/2021 17:25 EDT VISHAL GÓMEZ, PT - 01/31/2021 17:25 EDT Electronically signed by [facility] Conversion Needle Bar Molder Cerner at 12/07/2022 6:23 PM CDT documented in this encounter Plan of Treatment Not on file documented as of this encounter Visit Diagnoses Not on filedocumented in this encounter Care Teams Reverse Unit Operator Fisherman Relationship Specialty Start Date End Date Yuan Mccracken MD [address] [place] [address] PCP - General Family Medicine 09/23/22 documented as of this encounter
--- OUTSIDE RECORDS SUMMARY | 2025-02-15 10:09 | XMS_ITS | Encounter Summary ---
Author Organization [facility] [employer] Address [address] [place] [address] Care Team Providers Care Community Relations Liaison Name Role Phone Yuan Mccracken MD Primary Care Provider [phone] Encounter Details Date Type Department Care Team (Late st Contact Info) Description 01/22/[address] [facility] [place] Family Medicine [address] [place] [address] ProviderPerry MD [address] [place], [place] [address] Social History Tobacco Use Types Packs/Day Years Used Date Smoking Tobacco: Never Assessed Comments Unknown Sex and Gender Information Value Date Recorded Sex Assigned at Not on file Legal Sex Female 12:32 PM CDT Gender Identity Not on file Sexual Orientation Not on file documented as of this encounter Miscellaneous Notes * Cerner Conversion Note - Perry Nunes MD - 01/22/2021 4:00 AM CDT Height and Weight, Routine Entered On: 01/22/2021 5:48 EDT Performed On: 01/22/2021 4:00 EDT by Karina Regalado, RN-PATIENT CARE BEDSIDE NON-EXEMPT Height and Weight, Routine Routine Weight Entry Format : [place] Routine Weight, Pounds : 270 lb Routine Weight, Ounces : 8 oz Routine Weight Calculation : 122.95 kg Height Source : Stated Height Entry Format : [place] Height, Feet : 5 ft Height, Inches : 4 Inch Clinical Height : 162.56 cm Body Surface Area (BSA), Routine : 2.23 m2 Body Mass Index (BMI), Routine : 46.53 kg/m2 Karina Regalado, RN-PATIENT CARE BEDSIDE NON-EXEMPT - 01/22/2021 5:48 EDT Electronically signed by Carlotta [facility] Conversion Floor Worker Cerner at 12/07/2022 6:30 PM CDT documented in this encounter Plan of Treatment Not on file documented as of this encounter Visit Diagnoses Not on filedocumented in this encounter Care Teams Community Relations Liaison Relationship Specialty Start Date End Date Yuan Mccracken MD [address] [place] [phone] PCP - General Family Medicine 09/23/22 documented as of this encounter
--- OUTSIDE RECORDS SUMMARY | 2025-02-15 10:09 | XMS_ITS | Encounter Summary ---
Author Organization [facility] [employer] Address [address] [place] [address] Care Team Providers Care Pack Train Driver Name Role Phone Yuan Mccracken MD Primary Care Provider [phone] Encounter Details Date Type Department Care Team (Late st Contact Info) Description 01/24/2021 Transcribed Document [facility] [place] [address] [place] [address] ProviderPerry MD [address] [place], [place] [address] Social History Tobacco Use Types Packs/Day Years Used Date Smoking Tobacco: Never Assessed Comments Unknown Sex and Gender Information Value Date Recorded Sex Assigned at Not on file Legal Sex Female 12:32 PM CDT Gender Identity Not on file Sexual Orientation Not on file documented as of this encounter Miscellaneous Notes * Cerner Conversion Note - Perry Nunes MD - 01/24/2021 4:00 AM CDT Height and Weight, Routine Entered On: 01/24/2021 5:28 EDT Performed On: 01/24/2021 4:00 EDT by Marcella Hernandez RN-TRAVELER Height and Weight, Routine Routine Weight Source : Bed scale Routine Weight Entry Format : [place] Routine Weight, Pounds : 289 lb Routine Weight Calculation : 131.36 kg Height Source : Stated Height Entry Format : [place] Height, Feet : 5 ft Height, Inches : 4 Inch Clinical Height : 162.56 cm Body Surface Area (BSA), Routine : 2.29 m2 Body Mass Index (BMI), Routine : 49.71 kg/m2 Marcella Hernandez RN-TRAVELER - 01/24/2021 5:28 EDT Electronically signed by Carlotta [facility] Conversion Automotive Product Engineer Cerner at 12/07/2022 6:14 PM CDT documented in this encounter Plan of Treatment Not on file documented as of this encounter Visit Diagnoses Not on filedocumented in this encounter Care Teams Pack Train Driver Relationship Specialty Start Date End Date Yuan Mccracken MD [address] [place] [phone] PCP - General Family Medicine 09/23/22 documented as of this encounter
--- OUTSIDE RECORDS SUMMARY | 2025-02-15 10:09 | XMS_ITS | Encounter Summary ---
Author Organization [facility] [employer] Address [address] [place] [address] Care Team Providers Care Charge Weigher Name Role Phone Yuan Mccracken MD Primary Care Provider [phone] Encounter Details Date Type Department Care Team (Late st Contact Info) Description 01/23/2021 Transcribed Document [facility] [place] Family Medicine [address] [place] [address] ProviderPerry MD [address] [place], [place] [address] Social History Tobacco Use Types Packs/Day Years Used Date Smoking Tobacco: Never Assessed Comments Unknown Sex and Gender Information Value Date Recorded Sex Assigned at Not on file Legal Sex Female 12:32 PM CDT Gender Identity Not on file Sexual Orientation Not on file documented as of this encounter Miscellaneous Notes * Cerner Conversion Note - Perry Nunes MD - 01/23/2021 10:51 AM CDT Patient: CHANI VELASQUEZ Age: 60 Years Sex: Female : 1960 Subjective Renal function improving. Doing well otherwise. Vital Signs T: 36.7 ??C TMIN: 36.7 ??C TMAX: 37.1 ??C HR: 68 RR: 20 BP: 118/59 SpO2: 98% HT: 162.56 cm WT: 128.89 kg BMI: 48.77 Oxygen Settings (Last) Oxygen Therapy Mode: Nasal cannula (01/23/21 09:51:00) Oxygen Flow Rate: 3 Liter/Min (01/23/21 09:51:00) Intake & Output Totals Last 24 Hours (7a-7a) Input Total: 900 mL Output Total: 650 mL Balance: 250 mL Physical Exam General: No acute distress, [...] Monitor renal function. Supplement K and Mag lasix 20mg daily Daily labs. VTE Prophylaxis - Medical Apixaban 5 mg, Oral, Tab, [id number], Routine, Start 01/21/21 10:00:00 EDT, 01/21/21 9:43:00 [...] PRN Eliquis, 5 mg= 1 Tab, Oral, [id number] Lac-Hydrin 12% topical lotion, 1 Application, Topical, BID Lasix, 20 mg= 1 Tab, Oral, Daily magnesium sulfate, 2 Gram= 50 mL, IV Piggyback, Daily, PRN magnesium sulfate, 2 Gram= 50 mL, IV Piggyback, Q2H, PRN metoprolol tartrate, 50 mg= 1 Tab, Oral, BID MiraLax, 17 Gram= 1 Packet, Oral, Daily, PRN Mucinex, 600 mg= 1 Tab, Oral, BID, PRN nystatin, [id number] Units= 5 mL, Swish and Swallow , [...] Man 10 % (Low) 01/23/2021 06:11 EDT [place] Percent Man 4 % 01/23/2021 06:11 EDT Eos Percent Man 1 % 01/23/2021 06:11 EDT Baso Percent Man 1 % 01/23/2021 06:11 EDT [place] Percent Man 2 % (High) 01/23/2021 06:11 EDT RBC Morphology Abnormal 01/23/2021 06:11 EDT Anisocytosis 1+ (Abnormal) 01/23/2021 06:11 EDT Poikilocytosis 1+ (Abnormal) 01/23/2021 06:11 EDT Polychromasia 1+ (Abnormal) 01/23/2021 06:11 EDT Hypochromia 1+ (Abnormal) 01/23/2021 06:11 EDT Stomatocytes 1+ (Abnormal) 01/23/2021 06:[address] Estimate Increased (Abnormal) 01/23/2021 06:11 EDT Slide Review Add Diff 01/23/2021 06:11 EDT Electronically signed by Carlotta, [facility] Conversion Ingot Weigher Cerner at 12/07/2022 6:15 PM CDT documented in this encounter Plan of Treatment Not on file documented as of this encounter Visit Diagnoses Not on filedocumented in this encounter Care Teams Charge Weigher Relationship Specialty Start Date End Date Yuan Mccracken MD [address] [place] [address] PCP - General Family Medicine 09/23/22 documented as of this encounter
--- OUTSIDE RECORDS SUMMARY | 2025-02-15 10:09 | XMS_ITS | Encounter Summary ---
Author Organization [employer] [facility] Address [address] [place] [address] Care Team Providers Care Lacquer Pin Press Operator Name Role Phone Yuan Mccracken MD Primary Care Provider [phone] Encounter Details Date Type Department Care Team (Late st Contact Info) Description 01/30/2021 Transcribed Document [facility] [place] [address] [place] [address] ProviderPerry MD [address] [place], [place] [address] Social History Tobacco Use Types Packs/Day Years Used Date Smoking Tobacco: Never Assessed Comments Unknown Sex and Gender Information Value Date Recorded Sex Assigned at Not on file Legal Sex Female 12:32 PM CDT Gender Identity Not on file Sexual Orientation Not on file documented as of this encounter Miscellaneous Notes * Cerner Conversion Note - Perry Nunes MD - 01/30/2021 11:16 AM CDT Patient: CHANI VELASQUEZ Age: 60 [...] RT_Q6H, PRN: Wheezing Eliquis: 5 mg, Oral, [id number] Lac-Hydrin 12% topical lotion: 1 Application, Topical, [...] (See Comment), Medications (29) Active Scheduled: (11) albuterol-ipratropium inh 3 mL 3 mL, Nebulized Inhalation, RT_Q4H ammonium lact 12% lot 225 g 1 Application, Topical, BID apixaban 5 mg tab 5 mg 1 Tab, Oral, [id number] doxycycline hyclate 100 mg cap 100 mg 1 Cap, Oral, Q12H famotidine 20 mg tab 20 mg 1 Tab, Oral, Daily furosemide 40 mg tab 40 mg 1 Tab, Oral, BID lactobacillus acidophilus cap 1 Cap, Oral, BID linezolid 600 mg tab 600 mg 1 Tab, Oral, Q12H metoprolol tartrate 50 mg tab 50 mg [...] Problem list: Medical Obesity / SNOMED CT [id number] / Confirmed, Active Problems (1) Obesity Physical Examination VS/Measurements Vitals Signs (last 24 hrs) Last Charted Minimum Maximum Temp 98.2 (JAN 30 06:22) 98.2 (JAN 30 06:22) 98.8 (JAN 29 14:00) Apical HR 77 (JAN 30 09:29) 77 (JAN 29 22:21) 77 (JAN 29 22:21) Mon HR 67 (JAN 30 09:14) 66 (JAN 29 16:25) 113 (JAN 29 22:43) Resp Rate 16 (JAN 30 09:14) 16 (JAN 29 14:00) 18 (JAN 29 17:04) SBP 104 (JAN 30 06:22) 104 (JAN 30 06:22) 121 (JAN 29 17:04) DBP 60 (JAN 30 06:22) 60 (JAN 30 06:22) 85 (JAN 29 22:00) MAP 75 (JAN 30 06:22) 75 (JAN 30 06:22) 96 (JAN 29 22:00) SpO2 94 (JAN 30 09:14) L 92 (JAN 29 22:00) 100 (JAN 29 14:00) , Measurements from flowsheet : Measurements 01/29/2021 4:00 EDT Height Source Stated Height Entry Format [place] Height/Length, LAO (ft) 5 ft Height/Length LAO 4 Inch CLINICALHEIGHT 162.56 cm Routine Weight Source Bed scale Routine Weight Entry Format [place] Routine Weight, Pounds 267 lb Routine Weight, Ounces 5 oz Routine Weight Calculation 121.51 kg Body Mass Index (BMI), Routine 45.98 kg/m2 Body Surface Area (BSA), Routine 2.21 m2 General: Alert and oriented, No acute distress. [...] review: Labs (Last four charted values) WBC 8.3 (TOM 11) 10.0 (TOM 10) 8.6 (TOM 09) H 10.8 (TOM 08) HB L 8.1 (TOM 11) L 8.6 (TOM 10) L 8.4 (TOM 09) L 7.9 (TOM 08) HCT L 27.7 (TOM 11) L 28.6 (TOM 10) L 31.1 (TOM 09) L 26.4 (TOM 08) Plt H 384 (TOM 11) H 399 (TOM 10) 312 (TOM 09) H 424 (TOM 08) Na 139 (TOM 11) 139 (TOM 10) 137 (TOM 09) 139 (TOM 08) K 3.9 (TOM 11) 4.1 (TOM 10) 4.0 (TOM 09) 4.6 (TOM 08) Cl 110 (TOM 11) 108 (TOM 10) 109 (TOM 09) 110 (TOM 08) CO2 26 (TOM 11) 26 (TOM 10) 21 (TOM 09) 23 (TOM 08) BUN H 27 (TOM 11) H 25 (TOM 10) H 23 (TOM 09) 22 (TOM 08) Cr H 1.40 (TOM 11) H 1.40 (TOM 10) H 1.30 (TOM 09) H 1.30 (TOM 08) Glu R 90 (TOM 11) 78 (TOM 10) 81 (TOM 09) 80 (TOM 08) Ca 8.4 (TOM 11) L 8.3 (TOM 10) L 8.0 (TOM 09) L 8.1 (JAN 08) Lactic 2.0 (JANUARY 19) C 2.5 (JANUARY 17) C 2.3 (JANUARY 17) C 2.6 (JANUARY 16) PT 11.9 (JAN 20) INR 1.1 (JAN 20) AST 14 (JAN 10) 16 (JAN 08) 20 (JAN 06) 25 (JAN 05) ALT 18 (TOM 10) 18 (TOM 08) 21 (TOM 06) 28 (JAN 05) ALK P 58 (TOM 10) 56 (TOM 08) 53 (TOM 06) 57 (JAN 05) T Bili 0.4 (JAN 10) 0.4 (TOM 08) 0.9 (JAN 06) 0.5 (JAN 05) PTN 6.4 (JAN 10) L 6.0 (JAN 08) L 5.9 (JAN 25) L 6.3 (JAN 24) ALB L 1.9 (JAN 10) L 1.5 (JAN 08) L 1.5 (JAN 25) L 1.5 (JAN 05) Troponin <0.015 (JANUARY 16) . JAN 30 04:39 139 110 H 27 / 90 3.9 26 H 1.40 \ JAN 30 04:39 \ L 8.1 / 8.3 H 384 / L 27.7 \ Impression and Plan Dx and Plan 1. MISHA - non oliguric - Pre-renal plus obstructive uropathy - Mild left hydro with [address] scan. 2. Anemia: will watch 3. Blood Pressure- stable 4. Cellulitis 5. Nephrolithiasis with obstruction on the left side. Urology following. Plan: - albumin infusion, Continue with lasix. Will give a dose of metolazone. - Monitor I/o - Avoid nephrotoxic agents - Renal diet. - Adjust meds per renal funtion - No emergent need of CONVERTER SUPERVISOR. documented in this encounter Plan of Treatment Not on file documented as of this encounter Visit Diagnoses Not on filedocumented in this encounter Care Teams Lacquer Pin Press Operator Relationship Specialty Start Date End Date Yuan Mccracken MD [facility] [place] [address] PCP - General Family Medicine 09/23/22 documented as of this encounter
--- OUTSIDE RECORDS SUMMARY | 2025-02-15 10:09 | XMS_ITS | Encounter Summary ---
Author Organization [facility] Address [address] [place] [address] Care Team Providers Care Wireless Telegrapher Name Role Phone Yuan Mccracken MD Primary Care Provider [phone] Encounter Details Date Type Department Care Team (Late st Contact Info) Description 01/23/2021 Transcribed Document [facility] [place] [address] [place] [address] ProviderPerry MD [address] [place], [place] [address] Social History Tobacco Use Types Packs/Day Years Used Date Smoking Tobacco: Never Assessed Comments Unknown Sex and Gender Information Value Date Recorded Sex Assigned at Not on file Legal Sex Female 12:32 PM CDT Gender Identity Not on file Sexual Orientation Not on file documented as of this encounter Miscellaneous Notes * Cerner Conversion Note - Perry Nunes MD - 01/23/2021 12:14 PM CDT On Going Discharge Planning Entered On: 01/23/2021 12:17 EDT Performed On: 01/23/2021 12:14 EDT by Maryjane Gonzalez V, Brushing Machine Operator Event Crew Technician Care Management Progress Note Discharge Arrangements : Patient Post-Acute Information Patient Name: CHANI VELASQUEZ Gender: Female : 56 Age: 60 Years No Post-Acute Placement(s) Listed No Post-Acute Service(s) Listed No Curaspan Referral(s) Listed Discharge Options Discussed with Patient : Acute rehabilitation, Home Health, group home Barriers to Discharge Identified : Clinical Condition of Patient Barriers to Discharge Unresolved : Clinical Condition of Patient Is the Patient Meeting Medical Necessity : Yes Physician Agreeable to Move Forward with D/C Plan? : Yes Maryjane Gonzalez V Brushing Machine Operator [facility] [place] - 01/23/2021 12:14 EDT Narrative Progress Note Narrative Progress Note : HD#6, ELOS-not recorded, RRS-Moderate, Boost-3 ID following and recommending culture right leg wound and possible vascular consult. On IV Vanc and Zosyn. 3L 02/NC.,wound care. PT/OT recommending rehab. Referrals sent via [facility] to [facility] and SNF. Patient pending Medicaid. Placement susanna be difficult due to no insurance. is a resident at [facility]. Referral sent there too. CM to follow -- Historical Progress Note : HD#5, ELOS-not recorded, RRS-Moderate, Boost-3 Patient on 2L 02/NC. IV Abx-Vanc and Zosyn. Wound care by PT. PT/OT recommending rehab. CM sent referrals via [employer]. Patient's is a resident at [facility]. Patient is self pay and has no health or presription coverage. Placement may be difficult due to pending Medicaid status. CM to [facility] options. Maryjane Gonzalez V Brushing Machine Operator [facility] - 01/22/21 13:50:41 Maryjane Gonzalez V Brushing Machine Operator [facility] - 01/23/2021 12:14 EDT documented in this encounter Plan of Treatment Not on file documented as of this encounter Visit Diagnoses Not on filedocumented in this encounter Care Teams Wireless Telegrapher Relationship Specialty Start Date End Date Yuan Mccracken MD [address] [place] [phone] PCP - General Family Medicine 09/23/22 documented as of this encounter
--- OUTSIDE RECORDS SUMMARY | 2025-02-15 10:09 | XMS_ITS | Encounter Summary ---
Author Organization [facility] Address [address] [place] [address] Care Team Providers Care Technical Documentation Specialist Name Role Phone Yuan Mccracken MD Primary Care Provider [phone] Encounter Details Date Type Department Care Team (Late st Contact Info) Description 01/30/2021 Transcribed Document [facility] [place] [address] [place] [address] ProviderPerry MD [address], [place] [address] Social History Tobacco Use Types Packs/Day Years Used Date Smoking Tobacco: Never Assessed Comments Unknown Sex and Gender Information Value Date Recorded Sex Assigned at Not on file Legal Sex Female 12:32 PM CDT Gender Identity Not on file Sexual Orientation Not on file documented as of this encounter Miscellaneous Notes * Cerner Conversion Note - Perry Nunes MD - 01/30/2021 9:23 AM CDT UM Authorization Entered On: 01/30/2021 9:23 EDT Performed On: 01/30/2021 9:23 EDT by DWIGHT PERALTA, RN-Utilization Review Primary Insurance Authorization Authorization and Policy Numbers : Insurance 1 Health Plan: [facility] Policy Number: [id number] Authorization Number: Insurance Primary Name : [facility] MEDICAID [id number] Authorization Status-Primary : Awaiting callback Reference Number-Primary : Pend ref # [id number]. Authorized Service Begin Date-Primary : 01/16/2021 EDT Historical Authorization Comments-Primary : Comment 1: CM gave a medicaid ID no. Per SHERIMMHELADIO pt has [facility]. Notified [facility] clinicals submitted via [facility] portal and faxed via [employer] from 01/16 to 01/29 for Ip approval (CARMEN MARLOW RN 01/29/2021 14:06) Comment 2: MEDICAID PENDING (FABIAN DWIGHT D, RN-Utilization Review 01/28/2021 08:04) Comment 3: MEDICAID PENDING (FABIAN DWIGHT D, RN-Utilization Review 01/27/2021 08:41) Comment 4: MEDICAID PENDING (FABIAN, DWIGHT D, RN-Utilization Review 01/26/2021 08:45) Comment 5: MEDICAID PENDING (FABIAN DWIGHT D, RN-Utilization Review 01/23/2021 09:42) Comment 6: SELF PAY (DWIGHT PERALAT D, RN-Utilization Review 01/22/2021 08:29) Comment 7: SELF PAY (DWIGHT PERALTA D, RN-Utilization Review 01/21/2021 08:19) Comment 8: Self pay at the time of review (CARMEN MARLOW RN 01/20/2021 13:51) DWIGHT PERALTA D, RN-Utilization Review - 01/30/2021 9:23 EDT documented in this encounter Plan of Treatment Not on file documented as of this encounter Visit Diagnoses Not on filedocumented in this encounter Care Teams Technical Documentation Specialist Relationship Specialty Start Date End Date Yuan Mccracken MD [address] [place] [phone] PCP - General Family Medicine 09/23/22 documented as of this encounter
--- OUTSIDE RECORDS SUMMARY | 2025-02-15 10:09 | XMS_ITS | Encounter Summary ---
Author Organization [facility] Address [address] [place] [address] Care Team Providers Care Public Relations Senior Associate Name Role Phone Yuan Mccracken MD Primary Care Provider [phone] Encounter Details Date Type Department Care Team (Late st Contact Info) Description 01/30/2021 Transcribed Document [facility] [place] Family Medicine [address] [place] [address] ProviderPerry MD [address], [place] [address] Social History Tobacco Use Types Packs/Day Years Used Date Smoking Tobacco: Never Assessed Comments Unknown Sex and Gender Information Value Date Recorded Sex Assigned at Not on file Legal Sex Female 12:32 PM CDT Gender Identity Not on file Sexual Orientation Not on file documented as of this encounter Miscellaneous Notes * Cerner Conversion Note - Perry Nunes MD - 01/30/2021 9:26 AM CDT UM Authorization Entered On: 01/30/2021 9:28 EDT Performed On: 01/30/2021 9:26 EDT by DWIGHT PERALTA, RN-Utilization Review Primary Insurance Authorization Authorization and Policy Numbers : Insurance 1 Health Plan: [facility] Policy Number: [id number] Authorization Number: Insurance Primary Name : [facility] MEDICAID [id number] Authorization Status-Primary : Awaiting callback Reference Number-Primary : Pend ref # [id number]. Authorized Service Begin Date-Primary : 01/16/2021 EDT Authorization Comments-Primary : vm to [facility] medicaid [phone] (covering for Brittney Kelly) asking if she rec'd clinical info faxed on 01/29/21. await call back Historical Authorization Comments-Primary : Comment 1: CM gave a medicaid ID no. Per [place]MMIS pt has [facility]. Notified [facility] clinicals submitted via [facility] portal and faxed via [employer] from 01/16 to 01/29 for Ip approval (CARMEN MARLOW RN 01/29/2021 14:06) Comment 2: MEDICAID PENDING (DWIGHT PERALTA D, RN-Utilization Review 01/28/2021 08:04) Comment 3: MEDICAID PENDING (DWIGHT PERALTA D, RN-Utilization Review 01/27/2021 08:41) Comment 4: MEDICAID PENDING (DWIGHT PERALTA D, RN-Utilization Review 01/26/2021 08:45) Comment 5: MEDICAID PENDING (DWIGHT PERALTA D, RN-Utilization Review 01/23/2021 09:42) Comment 6: SELF PAY (DWIGHT PERALTA, RN-Utilization Review 01/22/2021 08:29) Comment 7: SELF PAY (DWIGHT PERALTA, RN-Utilization Review 01/21/2021 08:19) Comment 8: Self pay at the time of review (CARMEN MARLOW RN 01/20/2021 13:51) DWIGHT PERALTA, RN-Utilization Review - 01/30/2021 9:26 EDT documented in this encounter Plan of Treatment Not on file documented as of this encounter Visit Diagnoses Not on filedocumented in this encounter Care Teams Public Relations Senior Associate Relationship Specialty Start Date End Date Yuan Mccracken MD [address] [place] [phone] PCP - General Family Medicine 09/23/22 documented as of this encounter
--- OUTSIDE RECORDS SUMMARY | 2025-02-15 10:09 | XMS_ITS | Encounter Summary ---
Author Organization [facility] Address [address] [place] [address] Care Team Providers Care Farmworker Field Crop Name Role Phone Yuan Mccracken MD Primary Care Provider [phone] Encounter Details Date Type Department Care Team (Late st Contact Info) Description 01/31/2021 Transcribed Document [facility] [place] [address] [place] [address] ProviderPerry MD [address], [place] [id number] Social History Tobacco Use Types Packs/Day Years Used Date Smoking Tobacco: Never Assessed Comments Unknown Sex and Gender Information Value Date Recorded Sex Assigned at Not on file Legal Sex Female 12:32 PM CDT Gender Identity Not on file Sexual Orientation Not on file documented as of this encounter Miscellaneous Notes * Cerner Conversion Note - Perry Nunes MD - 01/31/2021 10:44 AM CDT Stroke/Warfarin Instructions Entered On: 01/31/2021 10:44 EDT Performed On: 01/31/2021 10:44 EDT by UMESH BARRY RN Stroke/Warfarin Instructions Stroke/TIA Discharge Ins : N/A Warfarin Discharge Ins : N/A UMESH BARRY RN - 01/31/2021 10:44 EDT documented in this encounter Plan of Treatment Not on file documented as of this encounter Visit Diagnoses Not on filedocumented in this encounter Care Teams Farmworker Field Crop Relationship Specialty Start Date End Date Yuan Mccracken MD [address] [place] [address] PCP - General Family Medicine 09/23/22 documented as of this encounter
--- OUTSIDE RECORDS SUMMARY | 2025-02-15 10:09 | XMS_ITS | Encounter Summary ---
Author Organization [facility] Address [address] [place] [address] Care Team Providers Care Shelter Director Name Role Phone Yuan Mccracken MD Primary Care Provider [phone] Encounter Details Date Type Department Care Team (Late st Contact Info) Description 02/03/2021 Transcribed Document [facility] [place] [address] [place] [address] ProviderPerry MD [address] [place], [place] [address] Social History Tobacco Use Types Packs/Day Years Used Date Smoking Tobacco: Never Assessed Comments Unknown Sex and Gender Information Value Date Recorded Sex Assigned at Not on file Legal Sex Female 12:32 PM CDT Gender Identity Not on file Sexual Orientation Not on file documented as of this encounter Miscellaneous Notes * Cerner Conversion Note - Perry Nunes MD - 02/03/2021 2:24 PM CDT UM Authorization Entered On: 02/03/2021 14:24 EDT Performed On: 02/03/2021 14:24 EDT by DEYA GONZALEZ RN Primary Insurance Authorization Authorization and Policy Numbers : Insurance 1 Health Plan: [facility] Policy Number: [id number] Authorization Number: Insurance Primary Name : [employer] [facility] MEDICAID [id number] Authorization Status-Primary : Apprv contin stay Auth/Referral Contact Name-Primary : [place] Reference Number-Primary : [id number] Number of Days Authorized-Primary : 15 Day(s) Authorized Service Begin Date-Primary : 01/16/2021 EDT Authorized Service End Date-Primary : 01/31/2021 EDT Authorization Comments-Primary : Per [facility] portal all days are approved. Historical Authorization Comments-Primary : Comment 1: Discharge date and summary faxed. (Rochelle Vasquez, Account Executive Software Sales 02/02/2021 14:32) Comment 2: rec'd call from [facility] medicaid- they did receive clinicals and will call back with a decision. (DWIGHT PERALTA, RN-Utilization Review 01/30/2021 10:07) Comment 3: vm to [facility] medicaid [id number] (covering for Brittney Kelly) asking if she rec'd clinical info faxed on 01/29/21. await call back (DWIGHT PERALTA, RN-Utilization Review 01/30/2021 09:26) Comment 4: CM gave a medicaid ID no. Per [facility]MMIS pt has [facility]. Notified [facility] clinicals submitted via [facility] portal and faxed via [employer] from 01/16 to 01/29 for Ip approval (CARMEN MARLOW RN 01/29/2021 14:06) Comment 5: MEDICAID PENDING (DWIGHT PERALTA, RN-Utilization Review 01/28/2021 08:04) Comment 6: MEDICAID PENDING (DWIGHT PERALTA, RN-Utilization Review 01/27/2021 08:41) Comment 7: MEDICAID PENDING (DWIGHT PERALTA, RN-Utilization Review 01/26/2021 08:45) Comment 8: MEDICAID PENDING (DWIGHT PERALTA, RN-Utilization Review 01/23/2021 09:42) Comment 9: SELF PAY (DWIGHT PERALTA, RN-Utilization Review 01/22/2021 08:29) Comment 10: SELF PAY (DWIGHT PERALTA, RN-Utilization Review 01/21/2021 08:19) Comment 11: Self pay at the time of review (CARMEN MARLOW RN 01/20/2021 13:51) DEYA GONZALEZ RN - 02/03/2021 14:24 EDT Electronically signed by Gayle Laguerre Conversion Environmental Health Safety Engineer Cerner at 12/07/2022 6:14 PM CDT documented in this encounter Plan of Treatment Not on file documented as of this encounter Visit Diagnoses Not on filedocumented in this encounter Care Teams Shelter Director Relationship Specialty Start Date End Date Yuan Mccracken MD [facility] [place] [address] PCP - General Family Medicine 09/23/22 documented as of this encounter
--- OUTSIDE RECORDS SUMMARY | 2025-02-15 10:09 | XMS_ITS | Encounter Summary ---
Author Organization [facility] [employer] [facility] Address [address] [place] [address] Care Team Providers Care High School Industrial Arts Teacher Name Role Phone Yuan Mccracken MD Primary Care Provider [phone] Encounter Details Date Type Department Care Team (Late st Contact Info) Description 01/23/2021 Transcribed Document [facility] [place] [address] [place] [address] ProviderPerry MD [address], [place] [address] Social History Tobacco Use Types Packs/Day Years Used Date Smoking Tobacco: Never Assessed Comments Unknown Sex and Gender Information Value Date Recorded Sex Assigned at Not on file Legal Sex Female 12:32 PM CDT Gender Identity Not on file Sexual Orientation Not on file documented as of this encounter Miscellaneous Notes * Cerner Conversion Note - Perry Nunes MD - 01/23/2021 4:00 AM CDT Height and Weight, Routine Entered On: 01/23/2021 5:35 EDT Performed On: 01/23/2021 4:00 EDT by Karina Regalado RN-PATIENT CARE BEDSIDE NON-EXEMPT Height and Weight, Routine Routine Weight Source : Bed scale Routine Weight Entry Format : [place] Routine Weight, Pounds : 283 lb Routine Weight, Ounces : 9 oz Routine Weight Calculation : 128.89 kg Height Source : Stated Height Entry Format : [place] Height, Feet : 5 ft Height, Inches : 4 Inch Clinical Height : 162.56 cm Body Surface Area (BSA), Routine : 2.27 m2 Body Mass Index (BMI), Routine : 48.77 kg/m2 Karina Regalado, RN-PATIENT CARE BEDSIDE NON-EXEMPT - 01/23/2021 5:35 EDT Electronically signed by [facility] Conversion Head Track Coach Cerner at 12/07/2022 6:09 PM CDT documented in this encounter Plan of Treatment Not on file documented as of this encounter Visit Diagnoses Not on filedocumented in this encounter Care Teams High School Industrial Arts Teacher Relationship Specialty Start Date End Date Yuan Mccracken MD [address] [place] [phone] PCP - General Family Medicine 09/23/22 documented as of this encounter
--- OUTSIDE RECORDS SUMMARY | 2025-02-15 10:09 | XMS_ITS | Encounter Summary ---
Author Organization [facility] Init [facility] Address [address] [place] [address] Care Team Providers Care Slab Stripper Name Role Phone Yuan Mccracken MD Primary Care Provider [phone] Encounter Details Date Type Department Care Team (Late st Contact Info) Description 01/31/2021 Transcribed Document [facility] [place] [address] [place] [address] ProviderPerry MD [address], [place] [address] Social History Tobacco Use Types Packs/Day Years [...] Nunes MD - 01/31/2021 10:44 AM CDT Nursing Discharge Summary Entered On: 01/31/2021 10:45 EDT Performed On: 01/31/2021 10:44 EDT by UMESH BARRY RN Discharge Documentation Discharge Date/Time : 01/31/2021 15:00 EDT Patient Disposition, General : Discharge Discharge To : senior living facility Mode Of Departure, General Discharge : Wheelchair IV Discontinued : Yes Personal Belongings With Patient : Yes Discharge Instructions Reviewed With, Opportunity For Questions Given : Patient Teaching Method : Explanation, Printed materials Teaching Evaluation : Verbalizes understanding Nurse Report w/Opportunity for Questions : Called UMESH BARRY RN - 01/31/2021 10:44 EDT documented in this encounter Plan of Treatment Not on file documented as of this encounter Visit Diagnoses Not on filedocumented in this encounter Care Teams Slab Stripper Relationship Specialty Start Date End Date Yuan Mccracken MD [address] [place] [address] PCP - General Family Medicine 09/23/22 documented as of this encounter
--- OUTSIDE RECORDS SUMMARY | 2025-02-15 10:09 | XMS_ITS | Encounter Summary ---
Author Organization [employer] Address [address] [place] [address] Care Team Providers Care Manager Plant Name Role Phone Yuan Mccracken MD Primary Care Provider [phone] Encounter Details Date Type Department Care Team (Late st Contact Info) Description 01/29/2021 Transcribed Document [facility] [place] Family Medicine [address] [place] [address] ProviderPerry MD [address] [place] [address] Social History Tobacco Use Types Packs/Day Years Used Date Smoking Tobacco: Never Assessed Comments Unknown Sex and Gender Information Value Date Recorded Sex Assigned at Not on file Legal Sex Female 12:32 PM CDT Gender Identity Not on file Sexual Orientation Not on file documented as of this encounter Miscellaneous Notes * Cerner Conversion Note - Perry Nunes MD - 01/29/2021 9:44 AM CDT Patient: CHANI VELASQUEZ Age: 60 [...] RT_Q6H, PRN: Wheezing Eliquis: 5 mg, Oral, [id number] Lac-Hydrin 12% topical lotion: 1 Application, Topical, BID Lasix: 40 mg, Oral, BID Melatonin: 1 mg, Oral, At Bedtime, PRN: Sleep MiraLax: 17 Gram, Oral, Daily, PRN: Constipation Mucinex: 600 mg, Oral, BID, PRN: Cough Pepcid: 20 mg, Oral, Daily Tylenol: 650 mg, Oral, Q4H, PRN: Pain (Mild 1-3) Zofran: 4 mg, IV Push, Q4H, PRN: Nausea Zyvox: 600 mg, Oral, Q12H albumin human 25% intravenous solution: 25 Gram, 100 mL, IV Piggyback, Q12H albuterol-ipratropium 100 mcg-20 mcg/inh inhalation aerosol: [...] (See Comment), Medications (29) Active Scheduled: (11) albumin human 25% 25 g/100 mL inj 25 Gram 100 mL, IV Piggyback, Q12H ammonium lact 12% lot 225 g 1 Application, Topical, BID apixaban 5 mg tab 5 mg 1 Tab, Oral, [id number] doxycycline hyclate 100 mg cap 100 mg [...] Problem list: Medical Obesity / SNOMED CT [id number] / Confirmed, Active Problems (1) Obesity Physical Examination VS/Measurements Vitals Signs (last 24 hrs) Last Charted Minimum Maximum Temp 97.8 (JAN 29 05:58) 97.8 (JAN 29 05:58) 98.1 (JAN 28 17:57) Apical HR 68 (JAN 29 09:21) 67 (JAN 28 21:12) 68 (JAN 29 09:21) Mon HR 58 (JAN 29 05:58) 58 (JAN 29 05:58) 77 (JAN 28 17:57) Resp Rate 18 (JAN 29 05:58) 16 (JAN 28 13:02) 20 (JAN 28 21:05) SBP 115 (JAN 29 05:58) 107 (JAN 28 15:32) 136 (JAN 28 13:02) DBP 69 (JAN 29 05:58) 65 (JAN 28 17:57) 81 (JAN 28 13:02) MAP 86 (JAN 29 05:58) 77 (JAN 28 17:57) 86 (JAN 29 05:58) SpO2 96 (JAN 29 08:28) 96 (JAN 28 15:32) 99 (JAN 28:02) , Measurements from flowsheet : Measurements 01/29/2021 4:00 EDT Height Source Stated Height Entry Format [place] Height/Length, ETHIOPIAN (ft) 5 ft Height/Length ETHIOPIAN 4 Inch CLINICALHEIGHT 162.56 cm Routine Weight Source Bed scale Routine Weight Entry Format [place] Routine Weight, Pounds 267 lb Routine Weight, Ounces 5 oz Routine Weight Calculation 121.51 kg Body Mass Index (BMI), Routine 45.98 kg/m2 Body Surface Area (BSA), Routine 2.21 m2 01/28/2021 5:00 EDT Routine Weight Source Bed scale Routine Weight Entry Format [place] Routine Weight, Pounds 281 lb Routine Weight [...] review: Labs (Last four charted values) WBC 10.0 (TOM 10) 8.6 (TOM 09) H 10.8 (TOM 08) H 11.6 (TOM 07) HB L 8.6 (TOM 10) L 8.4 (TOM 09) L 7.9 (TOM 08) L 8.3 (TOM 07) HCT L 28.6 (TOM 10) L 31.1 (TOM 09) L 26.4 (TOM 08) L 27.7 (TOM 07) Plt H 399 (TOM 10) 312 (TOM 09) H 424 (TOM 08) H 414 (TOM 07) Na 139 (TOM 10) 137 (TOM 09) 139 (TOM 08) 141 (TOM 07) K 4.1 (TOM 10) 4.0 (TOM 09) 4.6 (TOM 08) 4.5 (TOM 07) Cl 108 (TOM 10) 109 (TOM 09) 110 (TOM 08) 110 (TOM 07) CO2 26 (TOM 10) 21 (TOM 09) 23 (TOM 08) 24 (TOM 07) BUN H 25 (TOM 10) H 23 (TOM 09) 22 (TOM 08) 22 (TOM 07) Cr H 1.40 (TOM 10) H 1.30 (TOM 09) H 1.30 (TOM 08) H 1.40 (TOM 07) Glu R 78 (TOM 10) 81 (TOM 09) 80 (TOM 08) 81 (TOM 07) Ca L 8.3 (TOM 10) L 8.0 (TOM 09) L 8.1 (TOM 08) L 8.3 (JAN 26) Lactic 2.0 (JANUARY 19) C 2.5 (JANUARY 17) C 2.3 (JANUARY 17) C 2.6 (JANUARY 16) PT 11.9 (JAN 20) INR 1.1 (JAN 20) AST 14 (JAN 10) 16 (JAN 08) 20 (JAN 06) 25 (JAN 05) ALT 18 (JAN 10) 18 (JAN 08) 21 (JAN 06) 28 (JAN 05) ALK P 58 (JAN 10) 56 (JAN 08) 53 (JAN 06) 57 (JAN 05) T Bili 0.4 (JAN 10) 0.4 (JAN 08) 0.9 (JAN 06) 0.5 (JAN 05) PTN 6.4 (JAN 29) L 6.0 (JAN 08) L 5.9 (JAN 06) L 6.3 (JAN 24) ALB L 1.9 (JAN 10) L 1.5 (JAN 08) L 1.5 (JAN 06) L 1.5 (JAN 05) Troponin <0.015 (JANUARY 16) . JAN 29 05:17 139 108 H 25 / 78 4.1 26 H 1.40 \ JAN 29 05:17 \ L 8.6 / 10.0 H 399 / L 28.6 \ Impression and Plan Dx and Plan 1. MISHA - non oliguric - Pre-renal plus obstructive uropathy - Mild left hydro with [address] scan. 2. Anemia: will watch 3. Blood Pressure- stable 4. Cellulitis 5. Nephrolithiasis with obstruction on the left side. Urology following. Plan: - Continue with current. albumin infusion and lasix. - Monitor I/o - Avoid nephrotoxic agents - Renal diet. - Adjust meds per renal funtion - No emergent need of MANAGER CREDIT RISK. Electronically signed by Gayle Laguerre Conversion Child Development Specialist Cerner at 12/07/2022 6:09 PM CDT documented in this encounter Plan of Treatment Not on file documented as of this encounter Visit Diagnoses Not on filedocumented in this encounter Care Teams Manager Plant Relationship Specialty Start Date End Date Yuan Mccracken MD [address] [place] [phone] PCP - General Family Medicine 09/23/22 documented as of this encounter
--- OUTSIDE RECORDS SUMMARY | 2025-02-15 10:09 | XMS_ITS | Encounter Summary ---
Author Organization [employer] Address [address] [place] [address] Care Team Providers Care Breakdown Worker Name Role Phone Yuan Mccracken MD Primary Care Provider [phone] Encounter Details Date Type Department Care Team (Late st Contact Info) Description 01/31/2021 Transcribed Document [facility] [place] [address] [place] [address] ProviderPerry MD [address], [place] [address] Social History Tobacco Use Types Packs/Day Years Used Date Smoking Tobacco: Never Assessed Comments Unknown Sex and Gender Information Value Date Recorded Sex Assigned at Not on file Legal Sex Female 12:32 PM CDT Gender Identity Not on file Sexual Orientation Not on file documented as of this encounter Miscellaneous Notes * Cerner Conversion Note - Perry Nunes MD - 01/31/2021 9:51 AM CDT Patient: CHANI VELASQUEZ Age: 60 [...] RT_Q6H, PRN: Wheezing Eliquis: 5 mg, Oral, [id number] Lac-Hydrin 12% topical lotion: 1 Application, Topical, [...] solution: 25 Gram, 100 mL, IV Piggyback, Q6H albuterol-ipratropium 100 mcg-20 mcg/inh inhalation aerosol: 1 [...] IV Piggyback, Q6H, PRN: Other (See Comment) Prescriptions Prescribed metOLazone 5 mg oral tablet: 1 Tab, Oral, MoWeFr, 13 Tab, 0 Refill(s) Documented Medications Documented DuoNeb 0.5 mg-2.5 mg/3 mL inhalation solution: 3 mL, Nebulized Inhalation, RT_Q6H, PRN: Wheezing, 0 Refill(s) Eliquis 5 mg oral tablet: 1 Tab, Oral, [id number], 0 Refill(s) Lac-Hydrin 12% topical lotion: 1 Application, Topical, BID, 0 Refill(s) Lasix 40 mg oral tablet: 1 Tab, Oral, BID, 0 Refill(s) Melatonin 1 mg oral tablet: 1 Tab, Oral, At Bedtime, PRN: Sleep, 0 Refill(s) MiraLax: 17 Gram, Oral, Daily, PRN: Constipation, 0 Refill(s) Tylenol 325 mg oral tablet: 2 Tab, Oral, Q4H, PRN: Pain (Mild 1-3), 0 Refill(s) Zyvox 600 mg oral tablet: 1 Tab, Oral, Q12H, for 2 Day(s), 0 Refill(s) albuterol-ipratropium 100 mcg-20 mcg/inh inhalation aerosol: 1 Puff, Inhalation, Q4H While Awake, PRN: Wheezing, 0 Refill(s) doxycycline hyclate 100 mg oral capsule: 1 Cap, Oral, Q12H, for 2 Day(s), 0 Refill(s) lactobacillus acidophilus oral capsule: Oral, BID, 0 Refill(s) metoprolol tartrate: 50 mg, Oral, BID, 0 Refill(s) potassium chloride 10 mEq oral tablet, extended release: 4 Tab, Oral, BID, 0 Refill(s), Medications (30) Active Scheduled: (12) albumin human 25% 25 g/100 mL inj 25 Gram 100 mL, IV Piggyback, Q6H albuterol-ipratropium inh 3 mL 3 mL, Nebulized Inhalation, RT_Q4H ammonium lact 12% lot 225 g 1 Application, Topical, BID apixaban 5 mg tab 5 mg 1 Tab, Oral, [id number] doxycycline hyclate 100 mg cap 100 mg [...] Problem list: Medical Obesity / SNOMED CT [id number] / Confirmed, Active Problems (1) Obesity Physical Examination VS/Measurements Vitals Signs (last 24 hrs) Last Charted Minimum Maximum Temp 98.2 (JAN 31 05:52) 98.2 (JAN 31 05:52) 99.7 (JAN 30 15:39) Apical HR 77 (JAN 30 20:31) 77 (JAN 30 20:31) 77 (JAN 30 20:31) Mon HR 75 (JAN 31 05:52) 70 (JAN 30 11:25) 78 (JAN 30 21:45) Resp Rate 16 (JAN 31 05:52) 16 (JAN 30 20:26) 18 (JAN 30 11:25) SBP 115 (JAN 31 05:52) 108 (JAN 31 00:26) 126 (JAN 30 11:25) DBP 66 (JAN 31 05:52) L 59 (JAN 31 00:26) 75 (JAN 30 17:30) MAP 80 (JAN 31 05:52) 74 (JAN 31 00:26) 92 (JAN 30 15:39) SpO2 95 (JAN 31 05:52) 95 (JAN 30 11:25) 99 (JAN 30 15:39) General: Alert and oriented, No acute distress. [...] Labs (Last four charted values) WBC 8.3 (JAN 30) 10.0 (JAN 29) 8.6 (TOM 09) H 10.8 (TMO 08) HB L 8.1 (TOM 11) L 8.6 (TOM 10) L 8.4 (TOM 09) L 7.9 (TOM 08) HCT L 27.7 (TOM 11) L 28.6 (TOM 10) L 31.1 (TOM 09) L 26.4 (TOM 08) Plt H 384 (TOM 11) H 399 (TOM 10) 312 (TOM 09) H 424 (TOM 08) Na 138 (TOM 12) 139 (TOM 11) 139 (TOM 10) 137 (TOM 09) K 3.9 (TOM 12) 3.9 (TOM 11) 4.1 (TOM 10) 4.0 (TOM 09) Cl 106 (TOM 12) 110 (TOM 11) 108 (TOM 10) 109 (TOM 09) CO2 26 (TOM 12) 26 (TOM 11) 26 (TOM 10) 21 (TOM 09) BUN H 25 (TOM 12) H 27 (TOM 11) H 25 (TOM 10) H 23 (TOM 09) Cr H 1.40 (TOM 12) H 1.40 (TOM 11) H 1.40 (TOM 10) H 1.30 (TOM 09) Glu R 85 (TOM 12) 90 (TOM 11) 78 (TOM 10) 81 (TOM 09) Ca 8.5 (TOM 12) 8.4 (TOM 11) L 8.3 (TOM 10) L 8.0 (TMO 09) Lactic 2.0 (JANUARY 19) C 2.5 (JANUARY 17) C 2.3 (JANUARY 17) C 2.6 (JANUARY 16) PT 11.9 (TOM 01) INR 1.1 (TOM 01) AST 14 (TOM 10) 16 (TOM 08) 20 (TOM 06) 25 (TOM 05) ALT 18 (TOM 10) 18 (TOM 08) 21 (TOM 06) 28 (TOM 05) ALK P 58 (TOM 10) 56 (TOM 08) 53 (TOM 06) 57 (TOM 05) T Bili 0.4 (TOM 10) 0.4 (TOM 08) 0.9 (TOM 06) 0.5 (TOM 05) PTN 6.4 (TOM 10) L 6.0 (TOM 08) L 5.9 (TOM 06) L 6.3 (TOM 05) ALB L 1.9 (TOM 10) L 1.5 (TOM 08) L 1.5 (TOM 06) L 1.5 (TOM 05) Troponin <0.015 (JANUARY 16) . JAN 31 06:49 138 106 H 25 / 85 3.9 26 H 1.40 \ Impression and Plan Dx and Plan 1. MISHA - non oliguric - Pre-renal plus obstructive uropathy - Mild left hydro with [address] scan. 2. Anemia: will watch 3. Blood Pressure- stable 4. Cellulitis 5. Nephrolithiasis with obstruction on the left side. Urology following. Plan: - Continue with lasix 40 mg po q bid. Metolazone 5 mg MWF. - Avoid nephrotoxic agents - Renal diet. - Adjust meds per renal funtion - No emergent need of CARE CLINICIAN. - Increase protein in diet. Follow up with [facility] in 2-3 weeks with renal function, UA and UPCR Electronically signed by Carlotta, [facility] Conversion Bowling Pin Refinisher Cerner at 12/07/2022 6:25 PM CDT documented in this encounter Plan of Treatment Not on file documented as of this encounter Visit Diagnoses Not on filedocumented in this encounter Care Teams Breakdown Worker Relationship Specialty Start Date End Date Yuan Mccracken MD [facility] [place] [phone] PCP - General Family Medicine 09/23/22 documented as of this encounter
--- OUTSIDE RECORDS SUMMARY | 2025-02-15 10:09 | XMS_ITS | Encounter Summary ---
Author Organization [facility] [employer] Address [address] [place] [address] Care Team Providers Care Electric Motor Repair Supervisor Name Role Phone Yuan Mccracken MD Primary Care Provider [phone] Encounter Details Date Type Department Care Team (Late st Contact Info) Description 01/23/[address] [facility] [place] Family Medicine [address] [place] [address] ProviderPerry MD [address] [place], [place] [id number] Social History Tobacco Use Types Packs/Day Years Used Date Smoking Tobacco: Never Assessed Comments Unknown Sex and Gender Information Value Date Recorded Sex Assigned at Not on file Legal Sex Female 12:32 PM CDT Gender Identity Not on file Sexual Orientation Not on file documented as of this encounter Miscellaneous Notes * Cerner Conversion Note - Perry ProviderMD - 01/23/2021 1:06 PM CDT Attempt to Treat, PT Entered On: 01/23/2021 13:07 EDT Performed On: 01/23/2021 13:06 EDT by TODD ENRIQUEZ PTA Attempt to Treat Unable to Treat Due To : Patient Refusal Inability to Treat Comment : pt refused due to fatigue, will try back as time permits Notification : TODD Gasca PTA - 01/23/2021 13:06 EDT Electronically signed by Gayle Laguerre Conversion Quality Assurance/R&D Lab Technician Cerner at 12/07/2022 6:24 PM CDT documented in this encounter Plan of Treatment Not on file documented as of this encounter Visit Diagnoses Not on filedocumented in this encounter Care Teams Electric Motor Repair Supervisor Relationship Specialty Start Date End Date Yuan Mccracken MD [address] [place] [phone] PCP - General Family Medicine 09/23/22 documented as of this encounter
--- OUTSIDE RECORDS SUMMARY | 2025-02-15 10:09 | XMS_ITS | Encounter Summary ---
Author Organization [facility] [employer] Address [address] [place] [address] Care Team Providers Care Distance Education Coordinator Name Role Phone Yuan Mccracken MD Primary Care Provider Encounter Details Date Type Department Care Team (Late st Contact Info) Description 01/25/2021 Transcribed Document [facility] [place] Family [place] [address] [place] [address] ProviderPerry MD [address] [place], [place] [address] Social History Tobacco Use Types Packs/Day Years Used Date Smoking Tobacco: Never Assessed Comments Unknown Sex and Gender Information Value Date Recorded Sex Assigned at Not on file Legal Sex Female 12:32 PM CDT Gender Identity Not on file Sexual Orientation Not on file documented as of this encounter Miscellaneous Notes * Cerner Conversion Note - Perry Nunes MD - 01/25/2021 12:55 PM CDT Patient: CHANI VELASQUEZ Age: 60 Years Sex: Female : 1960 Subjective Renal function stable. SOB improved on minimal O2 support. UOP 2 liter other labs stable. Vital Signs T: 36.4 ??C TMIN: 36.4 ??C TMAX: 37.1 ??C HR: 69(Monitored) RR: 20 BP: 140/79 SpO2: 97% HT: 162.56 cm WT: 125.91 kg BMI: 47.65 Oxygen Settings (Last) Oxygen Therapy Mode: Nasal cannula (01/25/21 11:36:00) Oxygen Flow Rate: 1 Liter/Min (01/25/21 11:36:00) Intake & Output Totals Last 24 Hours (7a-7a) Input Total: 1059.97 mL Output Total: 2000 mL Balance: -940.03 mL Physical Exam General: No acute distress, [...] Afib w RVR Anemia: Hb stable. Recs COntinue Lasix to 20 mg daily. Need to limit Na intake that is predominantly the reason for worsening of recent worsening of volume status. Monitor renal function. Supplement K and Mag Daily labs. VTE Prophylaxis - Medical Apixaban 5 mg, Oral, Tab, [id number], Routine, Start 01/21/21 10:00:00 EDT, 01/21/21 9:43:00 [...] RT_Q4H Eliquis, 5 mg= 1 Tab, Oral, [id number] Lac-Hydrin 12% topical lotion, 1 Application, Topical, [...] mg= 1 Tab, Oral, BID, PRN nystatin, [id number] Units= 5 mL, Swish and Swallow , [...] Test Result Date/Time Sodium Level 137 mmol/L 01/25/2021 07:06 EDT Potassium Level 4.5 mmol/L 01/25/2021 07:06 EDT Chloride Level 110 mmol/L 01/25/2021 07:06 EDT Carbon Dioxide Level 21 mmol/L 01/25/2021 07:06 EDT Anion Gap 10 01/25/2021 07:06 EDT Glucose Level 86 mg/dL 01/25/2021 07:06 EDT Blood Urea Nitrogen 23 mg/dL (High) 01/25/2021 07:06 EDT Creatinine Level 1.30 mg/dL (High) 01/25/2021 07:06 EDT eGFR 50 mL/min/1.73m2 (Low) 01/25/2021 07:06 EDT eGFR NonAfrican 42 mL/min/1.73m2 (Low) 01/25/2021 07:06 EDT Bun/Creatinine 17.7 01/25/2021 07:06 EDT Calcium Level 7.9 mg/dL (Low) 01/25/2021 07:06 EDT Protein Total 5.9 Gram/dL (Low) 01/25/2021 07:06 EDT Albumin Level 1.5 Gram/dL (Low) 01/25/2021 07:06 EDT Globulin 4.4 Gram/dL 01/25/2021 07:06 EDT A/G Ratio 0.3 (Low) 01/25/2021 07:06 EDT Bilirubin Total 0.9 mg/dL 01/25/2021 07:06 EDT Alk Phos 53 Units/Liter 01/25/2021 07:06 EDT AST 20 Units/Liter 01/25/2021 07:06 EDT ALT 21 Units/Liter 01/25/2021 07:06 EDT Magnesium Level 2.1 mg/dL 01/25/2021 07:06 EDT WBC 12.4 K/uL (High) 01/25/2021 07:06 EDT RBC 2.98 Million/uL (Low) 01/25/2021 07:06 EDT Hgb 8.0 g/dL (Low) 01/25/2021 07:06 EDT Hct 26.8 % (Low) 01/25/2021 07:06 EDT MCV 89.9 fL 01/25/2021 07:06 EDT MCH 26.8 pg 01/25/2021 07:06 EDT MCHC 29.9 Gram/dL (Low) 01/25/2021 07:06 EDT Platelet Count 392 K/uL (High) 01/25/2021 07:06 EDT MPV 9.9 fL 01/25/2021 07:06 EDT RDW 17.7 % (High) 01/25/2021 07:06 EDT Neut % 78.8 % (High) 01/25/2021 07:06 EDT Neut # 9.73 K/uL (High) 01/25/2021 07:06 EDT Lymph % 10.9 % (Low) 01/25/2021 07:06 EDT Lymph # 1.35 x10(3)/uL 01/25/2021 07:06 EDT [place] % 6.8 % 01/25/2021 07:06 EDT [place] # 0.84 K/uL 01/25/2021 07:06 EDT Eos % 1.2 % 01/25/2021 07:06 EDT Eos # 0.15 x10(3)/uL 01/25/2021 07:06 EDT Baso % 0.2 % 01/25/2021 07:06 EDT Baso # 0.03 x10(3)/uL 01/25/2021 07:06 EDT Slide Review No 01/25/2021 07:06 EDT IG# 0.26 x10(3)/uL (High) 01/25/2021 07:06 EDT IG% 2.10 % (High) 01/25/2021 07:06 EDT Electronically signed by [facility], [facility] Conversion Supervisor Furnace Process Cerner at 12/07/2022 6:08 PM CDT documented in this encounter Plan of Treatment Not on file documented as of this encounter Visit Diagnoses Not on filedocumented in this encounter Care Teams Distance Education Coordinator Relationship Specialty Start Date End Date Yuan Mccracken MD [address] [place] [phone] PCP - General Family Medicine 09/23/22 documented as of this encounter
--- OUTSIDE RECORDS SUMMARY | 2025-02-15 10:09 | XMS_ITS | Encounter Summary ---
Author Organization [facility] [employer] Address [address] [place] [address] Care Team Providers Care Center Aisle Cashier Name Role Phone Yuan Mccracken MD Primary Care Provider [phone] Encounter Details Date Type Department Care Team (Late st Contact Info) Description 01/26/2021 Transcribed Document [facility] [place] [address] [place] [address] ProviderPerry MD [address] [place], [place] [id number] Social History Tobacco Use Types Packs/Day Years Used Date Smoking Tobacco: Never Assessed Comments Unknown Sex and Gender Information Value Date Recorded Sex Assigned at Not on file Legal Sex Female 12:32 PM CDT Gender Identity Not on file Sexual Orientation Not on file documented as of this encounter Miscellaneous Notes * Cerner Conversion Note - Perry ProviderMD - 01/26/2021 3:46 PM CDT Treatment Intervention, PT Entered On: 01/28/2021 11:15 EDT Performed On: 01/28/2021 10:21 EDT by KIRILL COFFEY PT General Information, PT Visit Type, PT [...] No Devices Recorded Isolation Maintained : Contact KIRILL COFFEY, PT - 01/28/2021 11:06 EDT General Status Patient Received Status : Supine in bed Treatment Start Time : 01/28/2021 9:39 EDT Patient Left Status : Up in chair, Communication board completed, All needs met and within reach Treatment End Time : 01/28/2021 10:21 EDT Treatment Time : 42 Minute(s) KIRILL COFFEY, PT - 01/28/2021 11:06 EDT Functional Mobility Mobility Grid Bed Roll Left : Rehab Minimal assistance Bed Scooting : Rehab Minimal assistance Supine to Sit : Rehab Minimal assistance Sit to Stand : Rehab Minimal assistance Bed to Chair : Rehab Minimal assistance Stand to Sit : Rehab Minimal assistance KIRILL COFFEY, PT - 01/28/2021 11:06 EDT Bed Mobility Scooting Device : Rails Supine to Sit Device : Rails Sit to Stand Device : Belt, gait, Walker, front wheel Bed to Chair Device : Belt, gait, Walker, front wheel Stand to Sit Device : Belt, gait, Walker, front wheel KIRILL COFFEY, PT - 01/28/2021 11:06 EDT Gait Training/Assessment, PT Weight Bearing Status : Full Gait Assistance Level : Assist, minimal Walking Distance : 20' to end of shin with standing rest break/sitting rest break then 20' back to room. Ambulatory Devices : Gait belt, Walker, front wheel Gait Deviations : Yes Left Lower Gait Deviation : Foot clearance, decreased, Step length, decreased Right Lower Gait Deviation : Foot clearance, decreased, Step length, decreased Gait Training Comment : Patient leans on Rwx heavily especially when she is feeling SOA. KIRILL COFFEY, PT - 01/28/2021 11:06 EDT Edu Topics Physical Therapy Education Grid Bed Mobility Training : Returns demonstration, Needs reinforcement Gait Training : Returns demonstration, Needs reinforcement Role of Physical Therapy : Verbalizes understanding Transfer Training : Returns demonstration, Needs reinforcement KIRILL COFFEY, PT - 01/28/2021 11:06 EDT Indication Assesessment, PT Physical Therapy Indicated : Yes KIRILL COFFEY, PT - 01/28/2021 11:06 EDT Plan of Care, PT PT Tx Plan/Goals Established w Patient : Yes KIRILL COFFEY, PT - 01/28/2021 11:06 EDT Short Term Goals Mobility/Bed Mobility STG PT Grid Goal #1 Goal #4 Activity : Supine to sit Assist : Assist, minimal Date to Meet : 01/26/2021 EDT Goal Status : Goal met Date Met : 01/21/2021 EDT Comment : See wound goals for MIST and compression wraps below KIRILL COFFYE, PT - 01/28/2021 11:06 EDT KIRILL COFFEY, PT - 01/28/2021 11:06 EDT Ambulation STG Grid Goal #1 Device : Walker, front wheel Distance : 50 ft Assist : Assist, minimal Date to Meet : 01/26/2021 EDT Goal Status : Intial Goal KIRILL COFFEY, PT - 01/28/2021 11:06 EDT Other PT STG Grid Goal #1 Goal #2 Goal : Open area to measure 1.5cmX0.8cm BLE malleoli will be < 29.0cm Date to Meet : 01/28/2021 EDT 01/28/2021 EDT Goal Status : Goal met Progressing, continue Date Met : 01/26/2021 EDT KIRILL COFFEY, PT - 01/28/2021 11:06 EDT KIRILL COFFEY, PT - 01/28/2021 11:06 EDT Nursing Home Goals Mobility/Bed Mobility LTG PT Grid Goal #1 Goal #2 Goal #4 Activity : Supine to sit Sit to stand Assist : Independent, modified Independent, modified Date to Meet : 02/02/2021 EDT 02/02/2021 EDT Goal Status : Progressing, continue Progressing, continue Comment : See wound goals for MIST and compression wraps below KIRILL COFFEY, PT - 01/28/2021 11:06 EDT KIRILL COFFEY, PT - 01/28/2021 11:06 EDT KIRILL COFFEY, PT - 01/28/2021 11:06 EDT Ambulation LTG Grid Goal #1 Device : Walker, front wheel Distance : 150 ft Assist : Independent, modified Date to Meet : 02/02/2021 EDT Goal Status : Progressing, continue KIRILL COFFEY, PT - 01/28/2021 11:06 EDT Other PT LTG Grid Goal #1 Goal #2 Goal #3 Other : Open area to measure 1cmX0.5cm BLE fullest calf will be < 51.0cm Coccyx wound will measure 0.5 x 0.5 cm or less Date to Meet : 02/04/2021 EDT 02/04/2021 EDT 02/09/2021 EDT Goal Status : Goal met Goal met Not met Date Met : 01/26/2021 EDT 01/25/2021 EDT KIRILL COFFEY, PT - 01/28/2021 11:06 EDT KIRILL COFFEY, PT - 01/28/2021 11:06 EDT KIRILL COFFEY, PT - 01/28/2021 11:06 EDT Treatment Note Subjective Comment : Patient agrees to PTx. Nsg. Ok'd PTx. Patient's Response to Treatment : Patient asked to walk in the shin she said she didn't know how much she could do, but wanted out of the four garcia of her room. Additional Objective Information : Patient sat on edge of bed with independent static/dynamic sitting balance. She performed BLE ex: marching, LAQs, APs x10 reps. Patient then required a rest break to recover 02 saturation that decreased to 85%. Patient worked on brushing her hair with OT and 02 saturation decreased to 85% again. Patient required sitting rest break for another 3' then requested to use the BSC. patient was able to step over to BSC with supervision and Rwx. patient then voided and required assistance from OT for pericare. patient required supervision again to take steps back to bed to sit and rest before ambulating in hallway. After another 4' patient walked in shin with standing/sitting rest break. After ambulation patient sat in recliner and 02 saturation was 76% (on 2L throughout session). Patient took 2' to recover to 92%. Patient left with all needs in reach. Assessment : patient presents with impaired endurance with activity and requires frequent rest breaks throught session to recover. Patient would benefit from further skilled PT to work on transfers, ambulation, and energy conservation to improve her PLOF. Plan for Treatment : Con't PTx. KIRILL COFFEY PT - 01/28/2021 11:06 EDT Pain Assessment Pain Scaled Used : 0-10 Pain scale Pain Score Pre-Intervention : 0 Pain Score During-Intervention : 0 Pain Score Post-Intervention. : 0 KIRILL COFFEY PT - 01/28/2021 11:06 EDT Image 1 - Images currently included in the form version of this document have not been included in the text rendition version of the form. Anticipated Discharge Needs, OT/PT Anticipated Discharge to : Home, with home health (Comment: S1 [KIRILL COFFEY PT - 01/28/2021 11:06 EDT] ) Recommend Continued Therapy at Discharge : Yes KIRILL COFFEY PT - 01/28/2021 11:[address] [facility] PT Therap. Exercise 15 min : 1 PT Ther Activities Ea 15 Min : 2 KIRILL COFFEY PT - 01/28/2021 11:06 EDT documented in this encounter Plan of Treatment Not on file documented as of this encounter Visit Diagnoses Not on filedocumented in this encounter Care Teams Center Aisle Cashier Relationship Specialty Start Date End Date Yuan Mccracken MD [address] [place] [phone] PCP - General Family Medicine 09/23/22 documented as of this encounter
--- OUTSIDE RECORDS SUMMARY | 2025-02-15 10:09 | XMS_ITS | Encounter Summary ---
Author Organization [employer] Address [address] [place] [address] Care Team Providers Care Director Foundation Name Role Phone Yuan Mccracken MD Primary Care Provider [phone] Encounter Details Date Type Department Care Team (Late st Contact Info) Description 01/29/2021 Transcribed Document [facility] [place] [facility] [place] [address] ProviderPerry MD [address] [place] [address] Social History Tobacco Use Types Packs/Day Years Used Date Smoking Tobacco: Never Assessed Comments Unknown Sex and Gender Information Value Date Recorded Sex Assigned at Not on file Legal Sex Female 12:32 PM CDT Gender Identity Not on file Sexual Orientation Not on file documented as of this encounter Miscellaneous Notes * Cerner Conversion Note - Perry Nunes MD - 01/29/2021 1:46 PM CDT Patient: CHANI VELASQUEZ Age: 60 [...] O2 NC leg wounds continue to improve 01/29 afebrile, she was ble to walk 50' with PT today, she continues to receive qod dressing changes to her legs 01/30 afebrile, able to be a little active; tolerating dressing changes more easily PAST MEDICAL HISTORY Chronic LE edema Nephrolithiasis [...] RT_Q6H, PRN: Wheezing Eliquis: 5 mg, Oral, F59KGms Lac-Hydrin 12% topical lotion: 1 Application, Topical, [...] Last Charted Minimum Maximum Temp 98.2 (JAN 29 10:00) 97.8 (JAN 29 05:58) 98.1 (JAN 28 17:57) Apical HR 68 (JAN 29:21) 67 (JAN 28 21:12) 68 (JAN 29:21) Mon HR 63 (JAN 29 10:00) 58 (JAN 29 05:58) 77 (JAN 28 17:57) Resp Rate 18 (JAN 29:58) 18 (JAN 28 15:32) 20 (JAN 28 21:05) SBP 127 (JAN 29 10:00) 107 (JAN 28 15:32) 127 (JAN 29 10:00) DBP 65 (JAN 29 10:00) 65 (JAN 28 17:57) 70 (JAN 28 15:32) MAP 86 (JAN 29 05:58) 77 (JAN 28 17:57) 86 (JAN 29:58) SpO2 L 93 (JAN 29 10:00) L 93 (JAN 29 10:00) 98 (JAN 28 17:57) , Measurements from flowsheet : Measurements 01/29/2021 4:00 EDT Height Source Stated Height Entry Format Guion Height/Length, [place] (ft) 5 ft Height/Length [place] 4 Inch CLINICALHEIGHT 162.56 cm Routine Weight Source Bed scale Routine Weight Entry Format Guion Routine Weight, Pounds 267 lb Routine Weight, Ounces 5 oz Routine Weight Calculation 121.51 kg Body Mass Index (BMI), Routine 45.98 kg/m2 Body Surface Area (BSA), Routine 2.21 m2 01/28/2021 5:00 EDT Routine Weight Source Bed scale Routine Weight Entry Format Guion Routine Weight, Pounds 281 lb Routine Weight Calculation 127.73 kg General: Alert and oriented, No acute distress, appears chronically ill and older than stated age. Eye: Extraocular movements are intact, Normal conjunctiva. HENT: Normocephalic, Oral mucosa is moist. Neck: Supple, Non-tender. Respiratory: Respirations are non-labored, decreased bs at bases. Cardiovascular: Normal rate, No murmur. Gastrointestinal: Soft, Non-tender. Musculoskeletal: No deformity. Integumentary: bilateral leg wrappings were not removed, the right leg has a very large ulceration with a fetid odor on the posterior aspect; erythema somewhat improved. Review / Management Results review: Labs (Last four charted values) WBC 10.0 (JAN 29) 8.6 (TOM 09) H 10.8 (TOM 08) [...] 8.1 (TOM 08) L 8.3 (TOM 07) Lactic 2.0 (JANUARY 19) C 2.5 (JANUARY 17) C 2.3 (JANUARY 17) C 2.6 (JANUARY 16) PT 11.9 (TOM 01) INR 1.1 (TOM 01) AST 14 (TOM 10) 16 (TOM 08) 20 (OTM 06) 25 (TOM 05) ALT 18 (TOM [...] ALB L 1.9 (TOM 10) L 1.5 (JAN 27) L 1.5 (JAN 25) L 1.5 (JAN 24) Troponin <0.015 (JANUARY 16) . Impression and Plan IMPRESSION -- Bilateral LE cellulitis R>>L Infected ulcer right posterior calf Fetid odor desite therapy with vancomycin and zosyn Suspect ischemic etiology Corynebacterium from wound is a likely contaminant -- Right perihilar infiltrate -- Acute/ ?chronic kidney disease- improving -- Nephrolithiasis -- Claudication -- Prior tobacco -- BMI 44 -- RLL lung nodule RECOMMENDATIONS --continue doxycyclne to 02/02 -- short course zyvox ie to 02/02 -- probiotic Electronically signed by [employer], [facility] Conversion Ceramic Coater Machine Cerner at 12/07/2022 6:03 PM CDT documented in this encounter Plan of Treatment Not on file documented as of this encounter Visit Diagnoses Not on filedocumented in this encounter Care Teams Director Foundation Relationship Specialty Start Date End Date Yuan Mccracken MD [address] [place] [phone] PCP - General Family Medicine 09/23/22 documented as of this encounter
--- OUTSIDE RECORDS SUMMARY | 2025-02-15 10:09 | XMS_ITS | Encounter Summary ---
Author Organization [facility] [employer] Address [address] [place] [address] Care Team Providers Care Waterproof Bag Sewer Name Role Phone Yuan Mccracken MD Primary Care Provider [phone] Encounter Details Date Type Department Care Team (Late st Contact Info) Description 01/30/2021 Transcribed Document [facility] [place] [address] [place] [address] ProviderPerry MD [address] [place], [place] [id number] Social History Tobacco Use Types Packs/Day Years Used Date Smoking Tobacco: Never Assessed Comments Unknown Sex and Gender Information Value Date Recorded Sex Assigned at Not on file Legal Sex Female 12:32 PM CDT Gender Identity Not on file Sexual Orientation Not on file documented as of this encounter Miscellaneous Notes * Cerner Conversion Note - Perry Nunes MD - 01/30/2021 5:00 PM CDT Chart Check - Review Order Profile Entered On: 01/30/2021 18:41 EDT Performed On: 01/30/2021 17:00 EDT by Hong Jauregui, RN Chart Check Powerplans Initiated/Discontinued as Appropriate : Yes All Active Orders Reviewed : Yes Hong Jauregui RN - 01/30/2021 18:41 EDT Electronically signed by Gayle Laguerre Conversion Remote Ruby On Rails Developer Cerner at 12/07/2022 6:24 PM CDT documented in this encounter Plan of Treatment Not on file documented as of this encounter Visit Diagnoses Not on filedocumented in this encounter Care Teams Waterproof Bag Sewer Relationship Specialty Start Date End Date Yuan Mccracken MD [address] [place] [phone] PCP - General Family Medicine 09/23/22 documented as of this encounter
--- OUTSIDE RECORDS SUMMARY | 2025-02-15 10:09 | XMS_ITS | Encounter Summary ---
Author Organization [facility] [employer] Address [address] [place] [address] Care Team Providers Care Liquefaction Plant Operator Name Role Phone Yuan Mccracken MD Primary Care Provider [phone] Encounter Details Date Type Department Care Team (Late st Contact Info) Description 01/29/2021 Transcribed Document [facility] [place] [address] [place] [address] ProviderPerry MD [address] [place], [place] [id number] Social History Tobacco Use Types Packs/Day Years Used Date Smoking Tobacco: Never Assessed Comments Unknown Sex and Gender Information Value Date Recorded Sex Assigned at Not on file Legal Sex Female 12:32 PM CDT Gender Identity Not on file Sexual Orientation Not on file documented as of this encounter Miscellaneous Notes * Cerner Conversion Note - Perry Nunes MD - 01/29/2021 4:26 PM CDT On Going Discharge Planning Entered On: 01/29/2021 16:32 EDT Performed On: 01/29/2021 16:26 EDT by Maryjane Gonzalez V, Vault Installer Loan Inspector Care Management Progress Note Discharge Arrangements : Patient Post-Acute Information Patient Name: CHANI VELASQUEZ Gender: Female : 56 Age: 60 Years No Post-Acute Placement(s) Listed No Post-Acute Service(s) Listed No [place] Referral(s) Listed Discharge Options Discussed with Patient : Acute rehabilitation, Home Health, retirement Barriers to Discharge Identified : Clinical Condition of Patient Barriers to Discharge Unresolved : Clinical Condition of Patient Maryjane Gonzalez Social Worker Loan Inspector - 01/29/2021 16:26 EDT Narrative Progress Note Narrative Progress Note : HD#12, elos-4, RRS-Moderate, Boost-3 [facility] has accepted pt for rehab and she is agreeable to rehab placement. Unable to obtain transportation until Tuesday at 10am via [employer] Historical Progress Note : HD#11, elos-4, RRS-Moderate, Boost-3 ID following and stopped IV Vanc and Zosyn. po doxy continued. Nephrology following. leg wounds improving with mist therapy with PT. CM sent updated clinical/therapy updates to all [facility] and [facility] for possible rehab palcement. Lack of insurance is a HUGE placement barrier. No current bed offers. CM to follow Maryjane Gonzalez Social Worker Loan Inspector - 01/28/21 15:01:06 HD#10, elos-4, RRS-Moderate, Boost-3 ID following. IV Vanc and Zosyn and po doxy. Per nephrology, renal function stable. Wound care and mist therapy with PT. CM sent updated clinical/therapy updates to all [facility] and [place], [place] facilities. Lack of insurance is a huge placement barrier. CM called [facility]. Left message for admit coordinator. Patient's is a resident at [facility]. CM hopes that they will accept patient as well with pending Medicaid. CM to follow Maryjane Gonzalez Social Worker Loan Inspector - 01/27/21 14:23:52 HD#6, elos-4, RRS-Moderate, [...] and insurance status. Maryjane Gonzalez Social Worker Loan Inspector - 01/26/21 13:44:57 HD#6, ELOS-not recorded, RRS-Moderate, Boost-3 ID following and recommending culture right leg wound and possible vascular consult. On IV Vanc and Zosyn. 3L 02/NC.,wound care. PT/OT recommending rehab. Referrals sent via [employer] to [facility] and SNF. Patient pending Medicaid. Placement susanna be difficult due to no insurance. is a resident at [facility]. Referral sent there too. CM to follow -- Maryjane Gonzalez V Vault Installer Loan Inspector - 01/23/21 12:17:40 HD#5, ELOS-not recorded, RRS-Moderate, Boost-3 Patient on 2L 02/NC. IV Abx-Vanc and Zosyn. Wound care by PT. PT/OT recommending rehab. CM sent referrals via [employer]. Patient's is a resident at [facility]. Patient is self pay and has no health or presription coverage. Placement may be difficult due to pending Medicaid status. CM to follow patient's progess and SNF placement options. Marjyane Gonzalez V Vault Installer Loan Inspector - 01/22/21 13:50:41 Maryjane Gonzalez V Vault Installer [facility] [place] - 01/29/2021 16:26 EDT documented in this encounter Plan of Treatment Not on file documented as of this encounter Visit Diagnoses Not on filedocumented in this encounter Care Teams Liquefaction Plant Operator Relationship Specialty Start Date End Date Yuan Mccracken MD [address] [place] [phone] PCP - General Family Medicine 09/23/22 documented as of this encounter
--- OUTSIDE RECORDS SUMMARY | 2025-02-15 10:10 | XMS_ITS | Clinical Summary ---
Author Organization [employer] Address [address] [place] [address] Care Team Providers Care Truck Sales Representative Name Role Phone Yuan Mccracken MD Primary Care Provider [phone] Allergies No known active allergies Medications aspirin 81 MG chewable tablet Take 81 mg by mouth daily. Active furosemide (LASIX) 40 MG tablet Take 40 mg by mouth 2 (two) times daily. Active potassium chloride SA (K-DUR,KLOR-CON -M) 20 MEQ tablet Take 20 mEq by mouth 2 (two) times daily. Active ranolazine (RANEXA) 500 MG 12 hr tablet Take 1 tablet by mouth twice daily 60 tablet 01/17/2023 Active metoprolol succinate (TOPROL-XL) 25 MG 24 hr tablet TAKE 1 TABLET BY MOUTH ONCE DAILY IN THE EVENING 30 tablet 01/17/2023 Active atorvastatin (LIPITOR) 40 MG tablet TAKE 1 TABLET BY MOUTH ONCE DAILY NIGHTLY 30 tablet 01/17/2023 Active valsartan (DIOVAN) 40 MG tablet Take 1 tablet by mouth once daily 30 tablet 01/17/2023 Active Social History Tobacco Use Types Packs/Day Years Used Date Smoking Tobacco: Never Assessed Interpersonal Safety Answer Date Record ed Family or friends hurt you Not on file 09/08 Family or friends insult you Not on file Family or friends threaten you Not on file 0 09/08/2023 Family or friends scream or curse at you Not on file 09/08/2023 Housing Stability Answer Date Recorded Living situation today Not on file Living situation problems Not on file 2023 Family and Community Support Answer Jay e Recorded Help with Day to Day Activities Not on file 09/08/2023 Feeling Lonely or Isolated Not on file 09/08 Educational Attainment Answer Date Castro rded Speak language other than Colombian at home Not on file 09/08/2023 Want help with school or training Not on file 09/08/2023 Depression Answer Date Recorded PHQ-2 Risk Not on file 09/08/2023 Disabilities Answer Date Recorded Difficulty concentrating Not on file 024 Difficulty doing errands alone Not on file 0 09/08/2023 Substance Use Answer Date Recorded Used prescription meds for non-medical reasons N ot on file 09/08/2023 Used illegal drugs past 12 months Not on file 09/08/2023 Comments Unknown Sex and Gender Information Value Date Recorded Sex Assigned at Not on file Legal Sex Female 12:32 PM CDT Gender Identity Not on file Sexual Orientation Not on file Last Filed Vital Signs Vital Sign Reading Time Taken Comments Blood Pressure 160/81 09/23/2022 2:30 PM EST Pulse 76 09/23/2022 2:30 PM EST Temperature 36.7 C (98.1 F) 09/23/2022 8:47 AM EST Respiratory Rate - - Oxygen Saturation 98% 09/23/2022 2:30 PM EST Inhaled Oxygen Concentration - - Weight 125.2 kg (276 lb) 09/23/2022 8:47 AM EST Height 162.6 cm (5' 4 ) 09/23/2022 8:47 AM EST Body Mass Index 47.38 09/23/2022 8:47 AM EST Plan of Treatment Health Maintenance Due Date Last Done Comments CT Colonography 1958 Colonoscopy 1958 Colorectal Cancer Screening 1958 DXA SCAN 1958 FOBT/FIT 1958 Fit-DNA (Cologuard) 1958 Sigmoidoscopy 1958 Depression Screening (12+) 1970 Tobacco Cessation Counseling and Screening (12+) 1970 Hepatitis C Screening 1976 DTAP/TDAP/TD VACCINES (1 - Tdap) 1977 Breast Cancer Screening 1998 Pneumococcal 50+ years (1 of 1 - PCV) 2008 Shingles Vaccine (Zoster) (1 of 2) 2008 Respiratory Syncytial Virus (RSV) Adult or (1 - Risk 60-74 years 1-dose series) 2018 COVID-19 VACCINE ( season) 2024 02/18/2022, 06/05/2021, 04/22/2021 Falls Risk Screening 08/22/2024 Influenza Vaccine (Season Ended) 2025 Insurance [facility] Advance Directives For more information, please contact: [phone] * Full Code (Latest Code Status on File) Date Activated Date Inactivated Comments 09/23/2022 12:35 PM 09/24/2022 4:32 AM * Full Code Date Activated Date Inactivated Comments 09/22/2022 11:34 PM 09/23/2022 12:35 PM Care Teams Truck Sales Representative Relationship Specialty Start Date End Date Yuan Mccracken MD [address] [place] [phone] PCP - General Family Medicine 09/23/22
--- OUTSIDE RECORDS SUMMARY | 2025-02-15 10:10 | XMS_ITS | Referral Summary ---
Author Organization [employer] Address [address] [place] [address] Care Team Providers Care Building Consultant Name Role Phone Yuan Mccracken MD Primary Care Provider Allergies No known active allergies Medications aspirin [...] Date Castro rded Speak language other than Greek at home Not on file 09/08/2023 Want [...] 09/23/2022 8:47 AM EST Plan of Treatment Not on file Insurance Advance Directives For more information, please contact: [phone] * Full Code (Latest Code Status on File) Date Activated Date Inactivated Comments 09/23/2022 12:35 PM 09/24/2022 4:32 AM * Full Code Date Activated Date Inactivated Comments 09/22/2022 11:34 PM 09/23/2022 12:35 PM Care Teams Building Consultant Relationship Specialty Start Date End Date Yuan Mccracken MD [address] [place] [phone] PCP - General Family Medicine 09/23/22
--- OUTSIDE RECORDS SUMMARY | 2025-02-15 10:10 | XMS_ITS | Encounter Summary ---
Author Organization [facility] [employer] Init iatives Address [address] [place] [address] Care Team Providers Care Literacy Consultant Name Role Phone Yuan Mccracken MD Primary Care Provider [phone] Encounter Details Date Type Department Care Team (Late st Contact Info) Description 01/18/2021 Transcribed Document [facility] [place] Family Medicine [address] [place] [address] ProviderPerry MD [address], [place] [phone] Social History Tobacco Use Types Packs/Day Years Used Date Smoking Tobacco: Never Assessed Comments Unknown Sex and Gender Information Value Date Recorded Sex Assigned at Not on file Legal Sex Female 12:32 PM CDT Gender Identity Not on file Sexual Orientation Not on file documented as of this encounter Miscellaneous Notes * Cerner Conversion Note - Perry Nunes MD - 01/18/2021 11:24 AM CDT Patient: CHANI VELASQUEZ Age: 60 years Sex: Female : 1960 Associated Diagnoses: None Author: MEG CARRASCO MD-NEP Subjective Stable overnight Objective VS/Measurements Vitals Signs (last 24 hrs) Last Charted Minimum Maximum Temp 98.2 (JANUARY 18 08:00) 97.7 (JANUARY 17 20:00) 98.7 (JANUARY 18 00:00) Mon HR 111 (JANUARY 18 10:00) 64 (JANUARY 18 04:30) 200 (JANUARY 18 00:00) Resp Rate H 35 (JANUARY 18 10:00) H 22 (JANUARY 17 18:00) H 62 (JANUARY 17 14:00) SBP 137 (JANUARY 18 10:00) 121 (JANUARY 18 00:00) H 180 (JANUARY 17 14:00) DBP 62 (JANUARY 18 10:00) 62 (JANUARY 17 22:30) H 126 (JANUARY 17 12:00) MAP 91 (JANUARY 18 10:00) 89 (JANUARY 17:30) 141 (JANUARY 17 12:00) SpO2 98 (JANUARY 18 10:00) L 80 (JANUARY 17 12:00) 100 (JANUARY 17 14:00) Intake & Output Totals Last 24 Hours (7a-7a) Intake (64 Events) Continuous Infusions (4700 mL) Medications (477.9 mL) Oral Intake (1000 mL) Output (12 Events) Coulter Catheter (3025 mL) Input Total: 6177.9 mL Output Total: 3025 mL Balance: 3152.9 mL Physical exam contact may be limited [...] H 389 (JANUARY 16) Na 141 (JANUARY 18) 138 (JANUARY 17) L 133 (JANUARY 16) L 126 (JANUARY 16) K C 2.7 (JANUARY 18) L 3.3 (JANUARY 17) 5.0 (JANUARY 16) C 6.8 (JANUARY 16) Cl 105 (JANUARY 18) 105 (JANUARY 17) 107 (JANUARY 16) L 101 (JANUARY 16) CO2 26 (JANUARY 18) L 18 (JANUARY 17) L 9 (JANUARY 16) L 8 (JANUARY 16) BUN C 94 (JANUARY 18) C 124 (JANUARY 17) C 136 (JANUARY 16) C 139 (JANUARY 16) Cr H 2.80 (JANUARY 18) H 4.40 (JANUARY 17) H 5.80 (JANUARY 16) H 6.50 (JANUARY 16) Glu R H 123 (JANUARY 18) H 158 (JANUARY 17) H 110 (JANUARY 16) H 181 (JANUARY 16) Ca L 7.5 (JANUARY 18) L 7.8 (JANUARY 17) 8.6 (JANUARY 16) 8.8 (JANUARY 16) Lactic C 2.5 (JANUARY 17) C 2.3 (JANUARY 17) C 2.6 (JANUARY 16) C 2.1 (JANUARY 16) AST 28 (JANUARY 16) ALT 23 (JANUARY 16) ALK P 128 (JANUARY 16) T Bili 0.5 (JANUARY 16) PTN H 9.3 (JANUARY 16) ALB L 1.4 (JANUARY 18) L 2.1 (JANUARY [...] on filedocumented in this encounter Care Teams Literacy Consultant Relationship Specialty Start Date End Date Yuan Mccracken MD [address] [place] [phone] PCP - General Family Medicine 09/23/22 documented as of this encounter
--- OUTSIDE RECORDS SUMMARY | 2025-02-15 10:10 | XMS_ITS | Encounter Summary ---
Author Organization [employer] In [employer]atives Address [address] [place] [address] Care Team Providers Care Barrel Polisher Inside Name Role Phone Yuan Mccracken MD Primary Care Provider [phone] Encounter Details Date Type Department Care Team (Late st Contact Info) Description 01/24/2021 Transcribed Document [facility] Family Medicine [address] [place] [address] ProviderPerry MD [address] [place] [address] Social History Tobacco Use Types Packs/Day Years Used Date Smoking Tobacco: Never Assessed Comments Unknown Sex and Gender Information Value Date Recorded Sex Assigned at Not on file Legal Sex Female 12:32 PM CDT Gender Identity Not on file Sexual Orientation Not on file documented as of this encounter Miscellaneous Notes * Cerner Conversion Note - Perry Nunes MD - 01/24/2021 2:22 PM CDT Patient: CHANI VELASQUEZ Age: 60 years Sex: Female : 1960 Associated Diagnoses: None Author: Dariel Hein, Pharmacist-Resident HPI: 60yo female presented with progressive [...] Last Charted Minimum Maximum Temp 98.2 (TOM 05 10:12) 98 (TOM 05 02:49) 99.1 (TOM 04 16:37) Apical HR 65 (TOM 05 09:30) 65 (TOM 05 09:30) 71 (TOM 04 20:11) Mon HR 80 (TOM 05 11:24) 32 (TOM 04 16:37) 91 (TOM 05 05:24) Resp Rate H 24 (TOM 05 11:24) 18 (TOM 05 09:33) H 24 (TOM 05 11:24) SBP 137 (TOM 05 10:12) 113 (TOM 05 02:49) H 171 (TOM 05 09:33) DBP 88 (TOM 05 10:12) 68 (TOM 05 02:49) H 109 (TOM 05 09:33) MAP 107 (TOM 05 10:12) 79 (TOM 05 02:49) 135 (TOM 05 09:33) SpO2 97 (TOM 05 11:24) 95 (TOM 05 08:56) 100 (TOM 04 20:58) Labs: Labs (Last four charted values) WBC H 13.0 (TOM 05) H 14.7 (TOM 04) H 16.9 (TOM 03) H 20.0 (TOM 02) HB L 8.4 (TOM 05) L 8.8 (TOM 04) L 8.8 (TOM 03) L 8.7 (TOM 02) HCT L 29.0 (TOM 05) L 29.8 (TOM 04) L 29.9 (TOM 03) L 28.2 (TOM 02) Plt H 399 (TOM 05) H 378 (TOM 04) 341 (TOM 03) 322 (TOM 02) Na 137 (TOM 05) 137 (TOM 04) 136 (TOM 03) 137 (TOM 02) K 4.4 (TOM 05) 4.5 (TOM 04) 3.7 (TOM 03) 3.9 (TOM 02) Cl 109 (TOM 05) 108 (TOM 04) 105 (TOM 03) 103 (TOM 02) CO2 24 (TOM 05) 24 (TOM 04) 27 (JAN 22) 29 (JAN 21) BUN H 26 (JAN 24) H 29 (JAN 23) H 32 (JAN 22) H 34 (JAN 21) Cr H 1.40 (JAN 05) H 1.20 (JAN 23) H 1.30 (JAN 22) H 1.40 (JAN 21) Glu R H 124 (JAN 24) 98 (JAN 04) H 121 (JAN 22) H 111 (JAN 21) Ca L 7.9 (JAN 24) L 8.0 (JAN 23) L 7.9 (JAN 22) L 7.2 (JAN 21) Lactic 2.0 (JANUARY 19) C 2.5 (JANUARY 17) C 2.3 (JANUARY 17) C 2.6 (JANUARY 16) PT 11.9 (JAN 20) INR 1.1 (JAN 20) AST 25 (JAN 24) H 50 (JANUARY 19) 28 (JANUARY 16) ALT 28 (JAN 24) 36 (JANUARY 19) 23 (JANUARY 16) ALK P 57 (JAN 24) 86 (JANUARY 19) 128 (JANUARY 16) T Bili 0.5 (JAN 24) 0.5 (JANUARY 19) 0.5 (JANUARY 16) PTN L 6.3 (JAN 24) L 6.2 (JANUARY 19) H 9.3 (JANUARY 16) ALB L 1.5 (JAN 24) L 1.4 (JANUARY 19) L 1.4 (JANUARY 18) L 2.1 (JANUARY 16) Troponin <0.015 (JANUARY 16) wt. 117kg Est CrCl = 57ml/min/m2 Intake & Output Totals Last 24 Hours (7a-7a) Input Total: 2389.98 mL Output Total: 1100 mL Balance: 1289.98 mL C/x -01/18 Sputum - Corynebacterium Vanc Levels 01/23 @1704 =14.4 (drawn ~1 late, on vanc 1750mg q24h) A/P 1. Level back therapeutic at 14.4, will continue vancomycin 1750mg IV q24h to target a trough of 10-20 - If SCr continues to worsen tomorrow, will plan to obtain vanc random tomorrow to avoid worsening renal function as patient MISHA-CKD 2. Trough level prior to dose on 01/26@ 1500, Hold if >21 3. Other meds adjusted appropriately at this time, will monitor for changes. Rx will follow, Dariel Hein PharmD, [facility] Pager: [phone], Ext. [phone] documented in this encounter Plan of Treatment Not on file documented as of this encounter Visit Diagnoses Not on filedocumented in this encounter Care Teams Barrel Polisher Inside Relationship Specialty Start Date End Date Yuan Mccracken MD [address] [place] [phone] PCP - General Family Medicine 09/23/22 documented as of this encounter
--- OUTSIDE RECORDS SUMMARY | 2025-02-15 10:10 | XMS_ITS | Encounter Summary ---
Author Organization [facility] In [employer]atives Address [address] [place] [address] Care Team Providers Care Urban Design Consultant Name Role Phone Yuan Mccracken MD Primary Care Provider Encounter Details Date Type Department Care Team (Late st Contact Info) Description 01/24/2021 Transcribed Document [facility] [place] [address] [place] [address] ProviderPerry MD [address] [place] [place], [place] [phone] Social History Tobacco Use Types Packs/Day Years Used Date Smoking Tobacco: Never Assessed Comments Unknown Sex and Gender Information Value Date Recorded Sex Assigned at Not on file Legal Sex Female 12:32 PM CDT Gender Identity Not on file Sexual Orientation Not on file documented as of this encounter Miscellaneous Notes * Cerner Conversion Note - Perry Nunes MD - 01/24/2021 5:00 AM CDT Chart Check - Review Order Profile Entered On: 01/24/2021 5:28 EDT Performed On: 01/24/2021 5:00 EDT by Marcella Hernandez RN-TRAVELER Chart Check Powerplans Initiated/Discontinued as Appropriate : Yes All Active Orders Reviewed : Yes Marcella Hernandez RN-TRAVELER - 01/24/2021 5:28 EDT Electronically signed by Gayle Laguerre Conversion Statement Services Representative Cerner at 12/07/2022 6:21 PM CDT documented in this encounter Plan of Treatment Not on file documented as of this encounter Visit Diagnoses Not on filedocumented in this encounter Care Teams Urban Design Consultant Relationship Specialty Start Date End Date Yuan Mccracken MD [address] [place] [phone] PCP - General Family Medicine 09/23/22 documented as of this encounter
--- OUTSIDE RECORDS SUMMARY | 2025-02-15 10:10 | XMS_ITS | Encounter Summary ---
Author Organization [facility] Init [employer]atives Address [address] [place] [address] Care Team Providers Care Lidar Analyst Name Role Phone Yuan Mccracken MD Primary Care Provider [phone] Encounter Details Date Type Department Care Team (Late st Contact Info) Description 01/18/2021 Transcribed Document [facility] Family Medicine [address] [place] [address] ProviderPerry MD [address], [place] [phone] Social History Tobacco Use Types Packs/Day Years Used Date Smoking Tobacco: Never Assessed Comments Unknown Sex and Gender Information Value Date Recorded Sex Assigned at Not on file Legal Sex Female 12:32 PM CDT Gender Identity Not on file Sexual Orientation Not on file documented as of this encounter Miscellaneous Notes * Libraner Conversion Note - Perry Nunes MD - 01/18/2021 2:00 AM CDT Student Finance Advisor Details Entered On: 01/18/2021 2:46 EDT Performed On: 01/18/2021 2:00 EDT by Annamaria Leyva RN Order [...] Crushed/Liquid : No Annamaria Leyva RN - 01/18/2021 2:46 EDT Electronically signed by Carlotta [facility] Conversion Chief Engineer Drilling And Recovery Cerner at 12/07/2022 6:06 PM CDT documented in this encounter Plan of Treatment Not on file documented as of this encounter Visit Diagnoses Not on filedocumented in this encounter Care Teams Lidar Analyst Relationship Specialty Start Date End Date Yuan Mccracken MD [address] [place] [phone] PCP - General Family Medicine 09/23/22 documented as of this encounter
--- OUTSIDE RECORDS SUMMARY | 2025-02-15 10:10 | XMS_ITS | Encounter Summary ---
Author Organization [facility] Init [employer]atives Address [address] [place] [address] Care Team Providers Care Waist Fitter Name Role Phone Yuan Mccracken MD Primary Care Provider [phone] Encounter Details Date Type Department Care Team (Late st Contact Info) Description 01/18/2021 Transcribed Document [facility] [place] [address] [place] [address] ProviderPerry MD [address], [place] [address] Social History Tobacco Use Types Packs/Day Years Used Date Smoking Tobacco: Never Assessed Comments Unknown Sex and Gender Information Value Date Recorded Sex Assigned at Not on file Legal Sex Female 12:32 PM CDT Gender Identity Not on file Sexual Orientation Not on file documented as of this encounter Miscellaneous Notes * Cerner Conversion Note - Perry Nunes MD - 01/18/2021 4:40 AM CDT Provider Notification Entered On: 01/18/2021 4:40 EDT Performed On: 01/18/2021 4:40 EDT by Annamaria Leyva RN Provider Notification Provider Notified of Concerns/Results : Critical value result, Other: Potassium leverl 2.7, BUN 94 Provider Response : Orders received Provider Notified Name : PRINCESS RIVERA MD Provider Notified Time : 01/18/2021 4:30 EDT Annamaria Leyva RN - 01/18/2021 4:40 EDT Electronically signed by Carlotta [facility] Conversion Skip Miner Blasting Cerner at 12/07/2022 6:26 PM CDT documented in this encounter Plan of Treatment Not on file documented as of this encounter Visit Diagnoses Not on filedocumented in this encounter Care Teams Waist Fitter Relationship Specialty Start Date End Date Yuan Mccracken MD [address] [place] [phone] PCP - General Family Medicine 09/23/22 documented as of this encounter
--- OUTSIDE RECORDS SUMMARY | 2025-02-15 10:10 | XMS_ITS | Encounter Summary ---
Author Organization [facility] Init [employer]atives Address [address] [place] [address] Care Team Providers Care Counter Server Name Role Phone Yuan Mccracken MD Primary Care Provider [phone] Encounter Details Date Type Department Care Team (Late st Contact Info) Description 01/24/2021 Transcribed Document [facility] [place] [address] [place] [address] ProviderPerry MD [address], [place] [address] Social History Tobacco Use Types Packs/Day Years Used Date Smoking Tobacco: Never Assessed Comments Unknown Sex and Gender Information Value Date Recorded Sex Assigned at Not on file Legal Sex Female 12:32 PM CDT Gender Identity Not on file Sexual Orientation Not on file documented as of this encounter Miscellaneous Notes * Cerner Conversion Note - Perry Nunes MD - 01/24/2021 2:00 AM CDT Structural Steel Worker Details Entered On: 01/24/2021 1:36 EDT Performed On: 01/24/2021 2:00 EDT by Marcella Hernandez RN-TRAVELER Order Details Transport Mode Order Detail : Bed (including specialty) Isolation Precautions Order Detail : Containment Precautions Order Detail : 0 IV Order Detail : 1 Oxygen Order Detail : 1 Nurse Collect Order Detail : 0 Lift/Transfer : Maximal assist Central Line Order Detail : No Room Service : Needs Assistance Arterial Line : No Patient Needs Meds Crushed/Liquid : No Marcella Hernandez RN-TRAVELER - 01/24/2021 1:36 EDT Electronically signed by Carlotta [facility] Conversion Licensed Audiologist Cerner at 12/07/2022 6:20 PM CDT documented in this encounter Plan of Treatment Not on file documented as of this encounter Visit Diagnoses Not on filedocumented in this encounter Care Teams Counter Server Relationship Specialty Start Date End Date Yuan Mccracken MD [address] [place] [phone] PCP - General Family Medicine 09/23/22 documented as of this encounter
--- OUTSIDE RECORDS SUMMARY | 2025-02-15 10:10 | XMS_ITS | Encounter Summary ---
Author Organization [facility] Init [employer]atives Address [address] [place] [address] Care Team Providers Care Site Safety Representative Name Role Phone Yuan Mccracken MD Primary Care Provider [phone] Encounter Details Date Type Department Care Team (Late st Contact Info) Description 01/18/2021 Transcribed Document [facility] [place] [address] [place] [address] ProviderPerry MD [address], [place] [id number] Social History Tobacco Use Types Packs/Day Years Used Date Smoking Tobacco: Never Assessed Comments Unknown Sex and Gender Information Value Date Recorded Sex Assigned at Not on file Legal Sex Female 12:32 PM CDT Gender Identity Not on file Sexual Orientation Not on file documented as of this encounter Miscellaneous Notes * Cerner Conversion Note - Perry Nunes MD - 01/18/2021 5:00 AM CDT Chart Check - Review Order Profile Entered On: 01/18/2021 3:38 EDT Performed On: 01/18/2021 5:00 EDT by Annamaria Leyva RN Chart Check Powerplans Initiated/Discontinued as Appropriate : Not applicable All Active Orders Reviewed : Yes Annamaria Leyva RN - 01/18/2021 3:38 EDT documented in this encounter Plan of Treatment Not on file documented as of this encounter Visit Diagnoses Not on filedocumented in this encounter Care Teams Site Safety Representative Relationship Specialty Start Date End Date Yuan Mccracken MD [address] [place] [phone] PCP - General Family Medicine 09/23/22 documented as of this encounter
--- OUTSIDE RECORDS SUMMARY | 2025-02-15 10:10 | XMS_ITS | Encounter Summary ---
Author Organization [facility] [employer] Init [employer]atives Address [address] [place] [address] Care Team Providers Care Recreation Therapy Aide Name Role Phone Yuan Mccracken MD Primary Care Provider [phone] Encounter Details Date Type Department Care Team (Late st Contact Info) Description 01/18/2021 Transcribed Document [facility] [place] [address] [place] [address] ProviderPerry MD [address], [place] [phone] Social History Tobacco Use Types Packs/Day Years Used Date Smoking Tobacco: Never Assessed Comments Unknown Sex and Gender Information Value Date Recorded Sex Assigned at Not on file Legal Sex Female 12:32 PM CDT Gender Identity Not on file Sexual Orientation Not on file documented as of this encounter Miscellaneous Notes * Cerner Conversion Note - Perry ProviderMD - 01/18/2021 10:00 AM CDT Attempt to Treat, OT Entered On: 01/18/2021 11:11 EDT Performed On: 01/18/2021 10:00 EDT by DAMON OLIVIER OTR/Barry Attempt to Treat Unable to Treat Due To : Acuity of Illness, Patient on hold Inability to Treat Comment : Per ángel Abrams for respiratory issues. OT will f/u as schedule permits. DAMON OLIVIER OTR/Barry - 01/18/2021 11:11 EDT Electronically signed by Gayle Laguerre Conversion Airconditioning Plant Operator Cerner at 12/07/2022 6:07 PM CDT documented in this encounter Plan of Treatment Not on file documented as of this encounter Visit Diagnoses Not on filedocumented in this encounter Care Teams Recreation Therapy Aide Relationship Specialty Start Date End Date Yuan Mccracken MD [facility] [place] [phone] PCP - General Family Medicine 09/23/22 documented as of this encounter
--- OUTSIDE RECORDS SUMMARY | 2025-02-15 10:10 | XMS_ITS | Encounter Summary ---
Author Organization [facility] Init [employer]atives Address [address] [place] [address] Care Team Providers Care Transplanter Name Role Phone Yuan Mccracken MD Primary Care Provider [phone] Encounter Details Date Type Department Care Team (Late st Contact Info) Description 01/25/2021 Transcribed Document [facility] [place] [address] [place] [address] ProviderPerry MD [address], [place] [address] Social History Tobacco Use Types Packs/Day Years Used Date Smoking Tobacco: Never Assessed Comments Unknown Sex and Gender Information Value Date Recorded Sex Assigned at Not on file Legal Sex Female 12:32 PM CDT Gender Identity Not on file Sexual Orientation Not on file documented as of this encounter Miscellaneous Notes * Cerner Conversion Note - Perry Nunes MD - 01/25/2021 2:00 AM CDT Shipfitters Supervisor Details Entered On: 01/25/2021 3:35 EDT Performed On: 01/25/2021 2:00 EDT by Marcella Hernandez RN-TRAVELER Order [...] Crushed/Liquid : No Marcella Hernandez RN-TRAVELER - 01/25/2021 3:35 EDT Electronically signed by Carlotta [facility] Conversion Spool Winder Cerner at 12/07/2022 6:05 PM CDT documented in this encounter Plan of Treatment Not on file documented as of this encounter Visit Diagnoses Not on filedocumented in this encounter Care Teams Transplanter Relationship Specialty Start Date End Date Yuan Mccracken MD [address] [place] [phone] PCP - General Family Medicine 09/23/22 documented as of this encounter
[2025-02-15 10:39] LABS: Basophils % 0.2 % (0.1-2.0); Eosinophils # 0.2 Kmm3 (0.0-0.4); Eosinophils % 1.7 % (0.1-12.0); Hematocrit 34.3 % (37.0-47.0); Hemoglobin 11.3 g/dL (12.2-16.2); Immature Granulocytes # 0.05 10^3uL; Immature Granulocytes % 0.5 %; Lymphocytes # 1.1 K/mm3 (0.7-4.5); Lymphocytes % 12.3 % (10-50); Mean Corpuscular HGB Conc 32.9 g/dL (31.8-35.4); Mean Corpuscular Hemoglobin 32.6 pg (27.0-31.2); Mean Corpuscular Volume 98.8 fl (81-99); Mean Platelet Volume 9.5 fl (7.4-10.4); Monocytes # 0.8 K/mm3 (0.1-1.0); Monocytes % 8.3 % (1.7-9.3); Neutrophils # 7.2 K/mm3 (1.8-7.8); Nucleated Red Blood Cells # 0 10^3/uL; Nucleated Red Blood Cells % 0 %; Platelet Count 246 K/mm3 (142-424); Red Blood Count 3.47 M/mm3 (4.20-5.40); Red Cell Distribution Width 15.9 % (11.5-17.5); Red Cell Distribution Width-SD 56.2 fL; White Blood Count 9.3 K/mm3 (4.8-10.8)
[2025-02-15 10:56] LABS: Alanine Aminotransferase 14 U/L (12-78); Albumin Level 3.4 g/dl (3.5-5.0); Alkaline Phosphatase 54 U/L (38-126); Anion Gap 12.4 mEq/L (5-15); Aspartate Amino Transferase 22 U/L (14-36); Bilirubin,Direct 0.3 mg/dl (0.0-0.4); Bilirubin,Indirect 0.8 mg/dL (0.0-0.9); Bilirubin,Total 1.1 mg/dl (0.2-1.3); Bilirubin,Unconjugated 0.8 mg/dL (0.0-1.1); Blood Urea Nitrogen 22 mg/dl (7-17); Calcium 9.2 mg/dl (8.4-10.2); Carbon Dioxide 25 mmol/L (22.0-30.0); Chloride 103 mmol/L (98-107); Chol/HDL Ratio 2.8 (1-3.5); Cholesterol 110 mg/dl (140-200); Estimated Glomerular Filt Rate 41 ml/min (>60); GFR (African American) 50 ML/MIN (>60); Glucose 93 mg/dl (74-100); HDL Cholesterol 39 mg/dl (40-60); Magnesium 2.1 mg/dl (1.6-2.3); Potassium 4.4 mmoL/L (3.5-5.1); Sodium 136 mmol/L (136-145); Total Protein,Serum 6.6 g/dl (6.3-8.2); Triglycerides 112 mg/dl (30-150); VLDL Cholesterol 22 mg/dL (0-40)
[2025-02-15 11:07] LABS: NT Pro Brain Natriuretic Pep. 304 pg/mL (0-125)
[2025-02-15 11:08] LABS: Direct LDL Cholesterol 42.22 mg/dL (100-129)
[2025-02-15 11:27] LABS: Thyroid Stimulating Hormone 0.58 uIU/mL (0.465-4.68)
== END 2025-02-15 23:59 | disposition home or self-care (01) ==
LOC: LAB 10:01
PROVIDERS: PCP Family Medicine; Visit Provider Nurse Practitioner Family
DX: E87.5 Hyperkalemia (principal); I10 Essential (primary) hypertension; I25.119 Atherosclerotic heart disease of native coronary artery with unspecified angina pectoris
CPT/HCPCS: 36415; 80048; 80061; 80076; 83735; 83880; 84439; 84443; 85025

== ENCOUNTER 2025-02-18 11:00 | Outpatient (RCR) | payer MEDICARE, MEDICAID, SELFPAY ==
--- NOTE | 2025-01-29 15:34 | HMH.RHREAS ---
Rehab Reassessment Rehab OP Re-assessment Start: 01/22/25 16:43 Freq: Status: Active Protocol: Document 01/29/25 15:07 SULEMA (Rec: 01/29/25 15:34 PHORNE [id number]) E-signed By Francisco Gunter, PT Dayday Wound Assessment Tool Assessment Wound size 2=Length x Width 4--<16 sq cm Wound depth 2=Partial thickness skin loss involving epidermis &/or dermis Wound edges 2=Distinct, outline clearly visible, attached, even with wound base Wound undermining 1=None present Necrotic tissue type 2=White/kiran non-viable tissue &/or non-adherent yellow slough Necrotic tissue 2=<25% of wound bed covered amount Exudate type 3=Serosanguineous: thin, watery, pale red/pink Exudate amount 3=Small Skin color 2=Bright red &/or blanches to touch surrounding wound Peripheral tissue 3=Non-pitting edema extends > or= to 4 cm around wound edema Peripheral tissue 1=None present induration Granulation tissue 2=Bright, beefy red;75% to 100% of wound filled &/or tissue overgrowth Epithelialization 3=50% to <75% wound covered &/or epithelial tissue extends to < 0.5cm Wound assessment 28 total score Rehab Re-assessment Subjective Subjective Pt continues to reports increased tenderness to palpation and pain in the kellie-wound area. She does feel a little bit better overall, though. Objective Objective Notes Pain: 5/10 L LE at worst. TTP: 2/4 Kellie-wound skin L LE. L lateral calf wound: L= 7.1 cm, W= 2.0 cm, D= 0.1 cm. 78% total wound surface area healed vs IE. Edema: 1+ pitting edema to L lower leg. Assessment Progress Assessment Progressing as Expected Assessment Notes Pt has shown significant improvement in overall wound surface area. She does continue to have increased drainage and pain from the wound area. Skilled therapy remains indicated in order to improve wound healing further and redcue pain in order to return pt to prior level of function with all ADLs. Patient goals met ST/2 LT/4 Plan Plan Continue per initial POC. Frequency of Therapy 2 x/wk Duration of therapy 4 wks Time and Billing Re-Eval Time 11 Re-Eval Billing 0 Units Charge for PT No reassessment? PHYSICIAN CERTIFICATION: I certify the specified therapy services for Chani Thorpe are required, authorized, and reviewed every 30 days.
== END 2025-02-18 23:59 | disposition home or self-care (01) ==
LOC: PT 11:00
PROVIDERS: PCP Family Medicine; Visit Provider Nurse Practitioner
DX: S91.002D Unspecified open wound, left ankle, subsequent encounter (principal); X58.XXXD Exposure to other specified factors, subsequent encounter
CPT/HCPCS: 87070; 87077; 87186; 87205; 97597

== ENCOUNTER 2025-03-18 11:00 | Outpatient (RCR) | payer MEDICARE, MEDICAID, SELFPAY ==
--- NOTE | 2025-03-01 17:08 | HMH.RHREAS ---
Rehab Reassessment Rehab OP Re-assessment Start: 02/21/25 15:49 Freq: Status: Active Protocol: Document 03/01/25 17:00 SULEMA (Rec: 03/01/25 17:07 PHORNE [id number]) E-signed By Francisco Gunter, PT Dayday Wound Assessment Tool Assessment Wound size 2=Length x Width 4--<16 sq cm Wound depth 2=Partial thickness skin loss involving epidermis &/or dermis Wound edges 2=Distinct, outline clearly visible, attached, even with wound base Wound undermining 1=None present Necrotic tissue type 2=White/kiran non-viable tissue &/or non-adherent yellow slough Necrotic tissue 2=<25% of wound bed covered amount Exudate type 3=Serosanguineous: thin, watery, pale red/pink Exudate amount 4=Moderate Skin color 1=[place] or normal for ethnic group surrounding wound Peripheral tissue 2=Non-pitting edema extends <4 cm around wound edema Peripheral tissue 1=None present induration Granulation tissue 2=Bright, beefy red;75% to 100% of wound filled &/or tissue overgrowth Epithelialization 4=25% to < 50% wound covered Wound assessment 28 total score Rehab Re-assessment Subjective Subjective Pt continues to report palpation tenderness around the kellie-wound skin, but less overall pain noted this date. Objective Objective Notes Pain: 5/10 L LE at worst. TTP: 2/4 Kellie-wound skin L LE. L lateral calf wound: L= 4.3 cm, W= 1.8 cm, D= 0.1 cm. 88% total wound surface area healed vs IE. Edema: 1+ pitting edema to L lower leg. Assessment Progress Assessment Progressing as Expected Assessment Notes Pt has shown continued significant improvement in overall wound surface area with decreased drainage from wound bed. Skilled therapy remains indicated in order to improve wound healing further and reduce pain in order to return pt to prior level of function with all ADLs. Patient goals met ST/ LT/4 Revised Goals LTG: #5 Pt will have 100% wound surface area healed in 4 weeks. Plan Plan Continue per initial POC. Frequency of Therapy 1 x/wk Duration of therapy 4 wks Time and Billing Re-Eval Time 11 Re-Eval Billing 0 Units Charge for PT No reassessment? PHYSICIAN CERTIFICATION: I certify the specified therapy services for Chani Thorpe are required, authorized, and reviewed every 30 days.
== END 2025-03-18 23:59 | disposition home or self-care (01) ==
LOC: PT 11:00
PROVIDERS: PCP Family Medicine; Visit Provider Nurse Practitioner
DX: S91.009A Unspecified open wound, unspecified ankle, initial encounter (principal); S91.0 Open wound of ankle
CPT/HCPCS: 97597

== ENCOUNTER → 2025-03-22 12:40 | Outpatient (RCR) | payer MEDICARE, MEDICAID, SELFPAY | LOC: PT 12:40 | PROVIDERS: PCP Family Medicine; Visit Provider Nurse Practitioner | DX: S81.802D Unspecified open wound, left lower leg, subsequent encounter (principal) | CPT/HCPCS: 97597 ==

== ENCOUNTER 2025-05-31 10:42 | Outpatient (CLI) | payer MEDICARE, MEDICAID, SELFPAY ==
--- OUTSIDE RECORDS SUMMARY | 2025-05-31 10:45 | XMS_ITS | Encounter Summary ---
Author Organization [employer] ([place], [place], [place], [place]) Address [address] [place] [address] Care Team Providers Care Doughnut Batter Mixer Name Role Phone Yuan Mccracken MD Primary Care Provider [phone] Encounter Details Date Type Department Care Team (Late st Contact Info) Description 01/26/2021 Transcribed Document [facility] [address] [place] [address] ProviderPerry MD [address] [place] [id number] Social History Tobacco Use Types Packs/Day Years Used Date Smoking Tobacco: Never Assessed Comments Unknown Sex and Gender Information Value Date Recorded Sex Assigned at Not on file Legal Sex Female 12:32 PM CDT Gender Identity Not on file Sexual Orientation Not on file documented as of this encounter Miscellaneous Notes * Cerner Conversion Note - Perry ProviderMD - 01/26/2021 1:42 PM CDT On Going Discharge Planning Entered On: 01/26/2021 13:44 EDT Performed On: 01/26/2021 13:42 EDT by Maryjane Gonzalez V, Shape Hand Employment Programs Analyst Care Management Progress Note Discharge Arrangements : [...] Rounds? : Yes Maryjane Gonzalez Social Worker Employment Programs Analyst - 01/26/2021 13:42 EDT Narrative Progress Note [...] recommending rehab. Referrals sent via [facility] to [facility] and SNF. Patient pending Medicaid. Placement susanna be difficult due to no insurance. is a resident at [facility]. Referral sent there too. CM to follow -- Maryjane Gonzalez Social Worker Employment Programs Analyst - 01/23/21 12:17:40 HD#5, ELOS-not recorded, RRS-Moderate, Boost-3 Patient on 2L 02/NC. IV Abx-Vanc and Zosyn. Wound care by PT. PT/OT recommending rehab. CM sent referrals via [facility]. Patient's is a resident at [facility]. Patient is self pay and has no health or presription coverage. Placement may be difficult due to pending Medicaid status. CM to follow patient's progess and SNF placement options. Maryjane Gonzalez Social Worker Employment Programs Analyst - 01/22/21 13:50:41 Maryjane Gonzalez Social Worker Employment Programs Analyst - 01/26/2021 13:42 EDT Electronically signed by Carlotta [facility] Conversion Audit Clerk Libraner at 12/07/2022 6:24 PM CDT documented in this encounter Plan of Treatment Not on file documented as of this encounter Visit Diagnoses Not on filedocumented in this encounter Care Teams Doughnut Batter Mixer Relationship Specialty Start Date End Date Yuan Mccracken MD [address] [place] [phone] PCP - General Family Medicine 09/23/22 documented as of this encounter
--- OUTSIDE RECORDS SUMMARY | 2025-05-31 10:45 | XMS_ITS | Encounter Summary ---
Author Organization [employer] ([place], [place], [place], [place]) Address [address] [place] [address] Care Team Providers Care Scoring Machine Operator Name Role Phone Yuan Mccracken MD Primary Care Provider [phone] Encounter Details Date Type Department Care Team (Late st Contact Info) Description 01/16/2021 Transcribed Document [facility] [place] Family Medicine [address] [place] [address] ProviderPerry MD [address] [place] [phone] Social History Tobacco Use Types Packs/Day Years [...] with recent bedbugs. SKIN: Warm and dry. [place] areas of weeping are noted with foul [...] We will follow the patient with physician. /[id number] MD STEPHANIE Mejia/AQ / STEPHANIE / MODL /[id number] documented in this encounter Plan of Treatment Not on file documented as of this encounter Visit Diagnoses Not on filedocumented in this encounter Care Teams Scoring Machine Operator Relationship Specialty Start Date End Date Yuan Mccracken MD [address] [place] [phone] PCP - General Family Medicine 09/23/22 documented as of this encounter
--- OUTSIDE RECORDS SUMMARY | 2025-05-31 10:45 | XMS_ITS | Encounter Summary ---
Author Organization [employer] ([place], [place], [place], [place]) Address [address] [place] [address] Care Team Providers Care Environmental Programs Specialist Name Role Phone Yuan Mccracken MD Primary Care Provider [phone] Encounter Details Date Type Department Care Team (Late st Contact Info) Description 01/16/2021 Transcribed Document [facility] [place] Family Medicine [address] [place] [address] ProviderPerry MD [address] [place] [address] Social History Tobacco Use Types Packs/Day Years Used Date Smoking Tobacco: Never Assessed Comments Unknown Sex and Gender Information Value Date Recorded Sex Assigned at Not on file Legal Sex Female 12:32 PM CDT Gender Identity Not on file Sexual Orientation Not on file documented as of this encounter Miscellaneous Notes * Cerner Conversion Note - Perry ProviderMD - 01/16/2021 5:30 PM CDT Broset Violence Assessment Entered On: 01/16/2021 17:40 EDT Performed On: 01/16/2021 17:40 EDT by Dulce Miller RN Broset Violence Assessment Broset Violence Checklist of Symptoms : None Broset Violence Symptoms Subtotal : 0 Broset Violence Symptoms Indicator : Low risk (0) Dulce Miller RN - 01/16/2021 17:40 EDT Electronically signed by Carlotta [facility] Conversion Bun Machine Operator Cerner at 12/07/2022 6:10 PM CDT documented in this encounter Plan of Treatment Not on file documented as of this encounter Visit Diagnoses Not on filedocumented in this encounter Care Teams Environmental Programs Specialist Relationship Specialty Start Date End Date Yuan Mccracken MD [facility] [place] [address] PCP - General Family Medicine 09/23/22 documented as of this encounter
--- OUTSIDE RECORDS SUMMARY | 2025-05-31 10:45 | XMS_ITS | Encounter Summary ---
Author Organization [employer] ([place], [place], [place], [place]) Address [address] [place] [address] Care Team Providers Care Insurance Analyst Name Role Phone Yuan Mccracken MD Primary Care Provider Encounter Details Date Type Department Care Team (Late st Contact Info) Description 01/20/2021 Transcribed Document [facility] [place] [facility] [place] [address] ProviderPerry MD [address] [place] [address] Social History Tobacco Use Types Packs/Day Years Used Date Smoking Tobacco: Never Assessed Comments Unknown Sex and Gender Information Value Date Recorded Sex Assigned at Not on file Legal Sex Female 12:32 PM CDT Gender Identity Not on file Sexual Orientation Not on file documented as of this encounter Miscellaneous Notes * Cerner Conversion Note - Perry ProviderMD - 01/20/2021 11:31 AM CDT Patient: CHANI [...] mg= 1 Tab, Oral, BID, PRN nystatin, [id number] Units= 5 mL, Swish and Swallow , [...] Man 6 % (Low) 01/20/2021 03:50 EDT [place] Percent Man 4 % 01/20/2021 03:50 EDT [place] Percent Man 1 % 01/20/2021 03:50 EDT [place] Percent Man 0 % 01/20/2021 03:50 EDT [place] Percent Man 1 % 01/20/2021 03:50 EDT [...] Platelet Ct Estimate Adequate 01/20/2021 03:50 EDT Electronically signed by Carlotta, [facility] Conversion Forging Engineer Cerner at 12/07/2022 6:26 PM CDT documented in this encounter Plan of Treatment Not on file documented as of this encounter Visit Diagnoses Not on filedocumented in this encounter Care Teams Insurance Analyst Relationship Specialty Start Date End Date Yuan Mccracken MD [address] [place] [phone] PCP - General Family Medicine 09/23/22 documented as of this encounter
--- OUTSIDE RECORDS SUMMARY | 2025-05-31 10:45 | XMS_ITS | Encounter Summary ---
Author Organization [employer] ([place], [place], [place], [place]) Address [address] [place] [address] Care Team Providers Care Mine Technician Name Role Phone Yuan Mccracken MD Primary Care Provider [phone] Encounter Details Date Type Department Care Team (Late st Contact Info) Description 01/26/2021 Transcribed Document [facility] [place] [address] [place] [address] ProviderPerry MD [address] [place] [address] Social History Tobacco Use Types Packs/Day Years Used Date Smoking Tobacco: Never Assessed Comments Unknown Sex and Gender Information Value Date Recorded Sex Assigned at Not on file Legal Sex Female 12:32 PM CDT Gender Identity Not on file Sexual Orientation Not on file documented as of this encounter Miscellaneous Notes * Cerner Conversion Note - Historical ProviderMD - 01/26/2021 3:30 PM CDT Attempt to Treat, PT Entered On: 01/26/2021 15:49 EDT Performed On: 01/26/2021 15:30 EDT by FRANCISCO MACEOD PT Attempt to Treat Inability to Treat Comment : BLE compression wraps intact and have not drained through at all. Some tape added to secure top on LLE. Change to every other day changes beginning today. Pt prefers this as well. Plan to change 01/27. FRANCISCO MACEDO PT - 01/26/2021 15:47 EDT Electronically signed by Carlotta [facility] Conversion Commercial Light Fixture Assembler Cerner at 12/07/2022 6:30 PM CDT documented in this encounter Plan of Treatment Not on file documented as of this encounter Visit Diagnoses Not on filedocumented in this encounter Care Teams Mine Technician Relationship Specialty Start Date End Date Yuan Mccracken MD [address] [place] [phone] PCP - General Family Medicine 09/23/22 documented as of this encounter
--- OUTSIDE RECORDS SUMMARY | 2025-05-31 10:45 | XMS_ITS | Encounter Summary ---
Author Organization [employer] ([place], [place], [place], [place]) Address [address] [place] [address] Care Team Providers Care Sergeant Of Officers Name Role Phone Yuan Mccracken MD Primary Care Provider [phone] Encounter Details Date Type Department Care Team (Late st Contact Info) Description 01/20/2021 Transcribed Document [facility] Cardiology [address] [place] [phone] [place] [address] [place] [address] [address] [place] [address] Social History Tobacco Use Types Packs/Day Years [...] None Author: GRUPO SMITH MD-CAR BASIC Primary Mold Making Plastics Sheets Supervisor: None Subjective Reconsulted; new onset a-fib. Started [...] Maximum Temp 99.6 (JAN 20 04:00) 98.8 (JANUARY 19 12:00) H 100.3 (JAN 20 00:00) Mon [...] 24 Hours) Radiology Results (Last 48 hours) [id number] -- 01/16/2021 19:34 CR Chest 1 Vw [...] for now. DC sub q. Decision for intermodal dispatcher OAC pending clinical course 01/17/2021 No indication for further cardiac testing at this time. Cardiology will sign off. documented in this encounter Plan of Treatment Not on file documented as of this encounter Visit Diagnoses Not on filedocumented in this encounter Care Teams Sergeant Of Officers Relationship Specialty Start Date End Date Yuan Mccracken MD [facility] [place] [address] PCP - General Family Medicine 09/23/22 documented as of this encounter
--- OUTSIDE RECORDS SUMMARY | 2025-05-31 10:45 | XMS_ITS | Encounter Summary ---
Author Organization [employer] ([place], [place], [place], [place]) Address [address] [place] [address] Care Team Providers Care Tax Manager Cpa Name Role Phone Yuan Mccracken MD Primary Care Provider [phone] Encounter Details Date Type Department Care Team (Late st Contact Info) Description 01/27/2021 Transcribed Document [facility] [place] Medicine [facility] [place] [address] ProviderPerry MD [address] [place] [phone] Social History Tobacco Use Types Packs/Day Years Used Date Smoking Tobacco: Never Assessed Comments Unknown Sex and Gender Information Value Date Recorded Sex Assigned at Not on file Legal Sex Female 12:32 PM CDT Gender Identity Not on file Sexual Orientation Not on file documented as of this encounter Miscellaneous Notes * Cerner Conversion Note - Perry ProviderMD - 01/27/2021 8:59 AM CDT Patient: CHANI [...] (JANUARY 19) ALT 18 (JAN 08) 21 (TOM 06) 28 (TOM 05) [...] changes. Thank you, Andria Lan, PharmD Resident [phone] Electronically signed by [facility], [facility] Conversion Cold Header Cerner at 12/07/2022 6:02 PM CDT documented in this encounter Plan of Treatment Not on file documented as of this encounter Visit Diagnoses Not on filedocumented in this encounter Care Teams Tax Manager Cpa Relationship Specialty Start Date End Date Yuan Mccracken MD [facility] [place] [address] PCP - General Family Medicine 09/23/22 documented as of this encounter
--- OUTSIDE RECORDS SUMMARY | 2025-05-31 10:45 | XMS_ITS | Encounter Summary ---
Author Organization [employer] ([place], [place], [place], [place]) Address [address] [place] [address] Care Team Providers Care Policy Adviser Name Role Phone Yuan Mccracken MD Primary Care Provider [phone] Encounter Details Date Type Department Care Team (Late st Contact Info) Description 01/16/2021 Transcribed Document [facility] [place] [facility] [place] [address] ProviderPerry MD [address] [place], [place] [phone] Social History Tobacco Use Types Packs/Day Years Used Date Smoking Tobacco: Never Assessed Comments Unknown Sex and Gender Information Value Date Recorded Sex Assigned at Not on file Legal Sex Female 12:32 PM CDT Gender Identity Not on file Sexual Orientation Not on file documented as of this encounter Miscellaneous Notes * Cerner Conversion Note - Perry ProviderMD - 01/16/2021 7:20 PM CDT ED Event [...] 01/16/2021 20:38 EDT Electronically signed by Carlotta [facility] Conversion Serology Teacher Cerner at 12/07/2022 6:05 PM CDT documented in this encounter Plan of Treatment Not on file documented as of this encounter Visit Diagnoses Not on filedocumented in this encounter Care Teams Policy Adviser Relationship Specialty Start Date End Date Yuan Mccracken MD [facility] [place] [address] PCP - General Family Medicine 09/23/22 documented as of this encounter
--- OUTSIDE RECORDS SUMMARY | 2025-05-31 10:45 | XMS_ITS | Encounter Summary ---
Author Organization [employer] ([place], [place], [place], [place]) Address [address] [place] [address] Care Team Providers Care Tower Director Name Role Phone Yuan Mccracken MD Primary Care Provider [phone] Encounter Details Date Type Department Care Team (Late st Contact Info) Description 01/26/2021 Transcribed Document [facility] [place] [facility] [place] [facility] [place] [address] ProviderPerry MD [address] [place], [place] [phone] Social History Tobacco Use Types Packs/Day Years Used Date Smoking Tobacco: Never Assessed Comments Unknown Sex and Gender Information Value Date Recorded Sex Assigned at Not on file Legal Sex Female 12:32 PM CDT Gender Identity Not on file Sexual Orientation Not on file documented as of this encounter Miscellaneous Notes * Cerner Conversion Note - Perry ProviderMD - 01/26/2021 3:00 AM CDT Nutrition Assessment [...] EDT Electronically signed by Gayle Laguerre Conversion Carpenter Wooden Tank Erecting Cerner at 12/07/2022 6:25 PM CDT documented in this encounter Plan of Treatment Not on file documented as of this encounter Visit Diagnoses Not on filedocumented in this encounter Care Teams Tower Director Relationship Specialty Start Date End Date Yuan Mccracken MD [facility] [place] [address] PCP - General Family Medicine 09/23/22 documented as of this encounter
--- OUTSIDE RECORDS SUMMARY | 2025-05-31 10:45 | XMS_ITS | Encounter Summary ---
Author Organization [employer] ([place], [place], [place], [place]) Address [address] [place] [address] Care Team Providers Care Policy Advisor Name Role Phone Yuan Mccracken MD Primary Care Provider [phone] Encounter Details Date Type Department Care Team (Late st Contact Info) Description 01/16/2021 Transcribed Document [facility] [place] [facility] [place] [address] ProviderPerry MD [address] [place], [place] [phone] Social History Tobacco Use Types Packs/Day Years Used Date Smoking Tobacco: Never Assessed Comments Unknown Sex and Gender Information Value Date Recorded Sex Assigned at Not on file Legal Sex Female 12:32 PM CDT Gender Identity Not on file Sexual Orientation Not on file documented as of this encounter Miscellaneous Notes * Cerner Conversion Note - Perry ProviderMD - 01/16/2021 5:39 PM CDT Nutrition Assessment [...] Tonie Billings, Dietitian - 01/19/2021 11:05 EDT Electronically signed by Carlotta [facility] Conversion Client Support Representative Cerner at 12/07/2022 6:08 PM CDT documented in this encounter Plan of Treatment Not on file documented as of this encounter Visit Diagnoses Not on filedocumented in this encounter Care Teams Policy Advisor Relationship Specialty Start Date End Date Yuan Mccracken MD [facility] [place] [address] PCP - General Family Medicine 09/23/22 documented as of this encounter
--- OUTSIDE RECORDS SUMMARY | 2025-05-31 10:45 | XMS_ITS | Encounter Summary ---
Author Organization [employer] ([place], [place], [place], [place]) Address [address] [place] [address] Care Team Providers Care Special Skills Officer Name Role Phone Yuan Mccracken MD Primary Care Provider [phone] Encounter Details Date Type Department Care Team (Late st Contact Info) Description 01/16/2021 Transcribed Document [facility] [place] Family Medicine [address] [place] [address] ProviderPerry MD [address] [place] [phone] Social History Tobacco Use Types Packs/Day Years Used Date Smoking Tobacco: Never Assessed Comments Unknown Sex and Gender Information Value Date Recorded Sex Assigned at Not on file Legal Sex Female 12:32 PM CDT Gender Identity Not on file Sexual Orientation Not on file documented as of this encounter Miscellaneous Notes * Cerner Conversion Note - Perry ProviderMD - 01/16/2021 7:17 PM CDT Patient: CHANI [...] EDT Height Source Stated Height Entry Format [place] Height/Length, UGANDAN (ft) 5 ft Height/Length UGANDAN 4 Inch CLINICALHEIGHT 162.56 cm [place] Body Weight 54.3 kg Weight Source, ED Critical estimated dosing weight Weight Entry Format [place] Weight Iraqi lb 270 lb CLINICALWEIGHT 122.73 kg Body [...] C-SSRS: ED Clinical Reconciliation: ED Isolation: ED supervisor line department: Lactic Acid Level with Reflex if Indicated: [...] tablet: 1,300 mg, 2 Tab, Oral, 1-Time. desk monitor: Normal sinus rhythm. Electrocardiogram: Time 01/16/2021 18:20:00, rate 110, normal sinus rhythm, No ST changes, no ectopy, normal MI & QRS intervals, EP Interp. Results review: [...] JARA MD-NEP, For elevated creatinine, electrolyte imbalance, Dry Kiln Loader Notified by Physician, Group/Instructions: Nephrology. Notes: I certify that the MLP/CHIP SEPARATOR performed the services as delegated. , Discussed with Dr. Goss and agrees with plan of care.. Electronically signed by Gayle Laguerre Conversion Flame Annealing Machine Setter Cerner at 12/07/2022 6:04 PM CDT documented in this encounter Plan of Treatment Not on file documented as of this encounter Visit Diagnoses Not on filedocumented in this encounter Care Teams Special Skills Officer Relationship Specialty Start Date End Date Yuan Mccracken MD [address] [place] [phone] PCP - General Family Medicine 09/23/22 documented as of this encounter
--- OUTSIDE RECORDS SUMMARY | 2025-05-31 10:45 | XMS_ITS | Encounter Summary ---
Author Organization [employer] ([place], [place], [place], [place]) Address [address] [place] [address] Care Team Providers Care Spinning Lathe Operator Automatic Name Role Phone Yuan Mccracken MD Primary Care Provider [phone] Encounter Details Date Type Department Care Team (Late st Contact Info) Description 01/20/2021 Transcribed Document [facility] [place] Family [place] [facility] [place] [address] ProviderPerry MD [address] [place], [place] [phone] Social History Tobacco Use Types Packs/Day Years Used Date Smoking Tobacco: Never Assessed Comments Unknown Sex and Gender Information Value Date Recorded Sex Assigned at Not on file Legal Sex Female 12:32 PM CDT Gender Identity Not on file Sexual Orientation Not on file documented as of this encounter Miscellaneous Notes * Cerner Conversion Note - Perry ProviderMD - 01/20/2021 1:51 PM CDT UM Authorization [...] CARMEN MARLOW RN - 01/20/2021 13:51 EDT documented in this encounter Plan of Treatment Not on file documented as of this encounter Visit Diagnoses Not on filedocumented in this encounter Care Teams Spinning Lathe Operator Automatic Relationship Specialty Start Date End Date Yuan Mccracken MD [address] [place] [phone] PCP - General Family Medicine 09/23/22 documented as of this encounter
--- OUTSIDE RECORDS SUMMARY | 2025-05-31 10:45 | XMS_ITS | Encounter Summary ---
Author Organization [email or web address] ([place], [place], [place], [place]) Address [address] [place] [address] Care Team Providers Care Reconciliation Clerk Name Role Phone Yuan Mccracken MD Primary Care Provider [phone] Encounter Details Date Type Department Care Team (Late st Contact Info) Description 01/26/2021 Transcribed Document [facility] [place] [address] ProviderPerry MD [address] [place] [address] Social History Tobacco Use Types Packs/Day Years Used Date Smoking Tobacco: Never Assessed Comments Unknown Sex and Gender Information Value Date Recorded Sex Assigned at Not on file Legal Sex Female 12:32 PM CDT Gender Identity Not on file Sexual Orientation Not on file documented as of this encounter Miscellaneous Notes * Cerner Conversion Note - Perry ProviderMD - 01/26/2021 8:45 AM CDT UM Authorization Entered On: 01/26/2021 8:45 EDT Performed On: 01/26/2021 8:45 EDT by DWIGHT PERALTA, RN-Utilization Review Primary Insurance Authorization Authorization and Policy Numbers : Insurance 1 Health Plan: MEDICAID PENDING Policy Number: [id number] Authorization Number: Insurance Primary Name : MEDICAID PENDING Policy Number: [id number] Authorized Service Begin Date-Primary : 01/16/2021 EDT [...] PERALTA, RN-Utilization Review - 01/26/2021 8:45 EDT documented in this encounter Plan of Treatment Not on file documented as of this encounter Visit Diagnoses Not on filedocumented in this encounter Care Teams Reconciliation Clerk Relationship Specialty Start Date End Date Yuan Mccracken MD [address] [place] [phone] PCP - General Family Medicine 09/23/22 documented as of this encounter
--- OUTSIDE RECORDS SUMMARY | 2025-05-31 10:45 | XMS_ITS | Encounter Summary ---
Author Organization [employer] ([place], [place], [place], [place]) Address [address] [place] [address] Care Team Providers Care Track Surfacing Machine Operator Name Role Phone Yuan Mccracken MD Primary Care Provider [phone] Encounter Details Date Type Department Care Team (Late st Contact Info) Description 01/26/2021 Transcribed Document [facility] [place] Family Medicine [address] [place] [address] ProviderPerry MD [address] [place] [address] Social History Tobacco Use Types Packs/Day Years Used Date Smoking Tobacco: Never Assessed Comments Unknown Sex and Gender Information Value Date Recorded Sex Assigned at Not on file Legal Sex Female 12:32 PM CDT Gender Identity Not on file Sexual Orientation Not on file documented as of this encounter Miscellaneous Notes * Cerner Conversion Note - Peryr ProviderMD - 01/26/2021 3:36 PM CDT Meds to Bed Enrollment Entered On: 01/26/2021 15:36 EDT Performed On: 01/26/2021 15:36 EDT by Michelle Jacobson PHARMACIST-SPECIALIST CLINICAL Meds to Bed Enrollment Patient Enrollment Decision: : Yes/enroll in meds to bed program Michelle Jacobson PHARMACIST-SPECIALIST CLINICAL - 01/26/2021 15:36 EDT documented in this encounter Plan of Treatment Not on file documented as of this encounter Visit Diagnoses Not on filedocumented in this encounter Care Teams Track Surfacing Machine Operator Relationship Specialty Start Date End Date Yuan Mccracken MD [address] [place] [phone] PCP - General Family Medicine 09/23/22 documented as of this encounter
--- OUTSIDE RECORDS SUMMARY | 2025-05-31 10:45 | XMS_ITS | Encounter Summary ---
Author Organization [employer] ([place], [place], [place], [place]) Address [address] [place] [address] Care Team Providers Care Supply Crib Attendant Name Role Phone Yuan Mccracken MD Primary Care Provider [phone] Encounter Details Date Type Department Care Team (Late st Contact Info) Description 01/16/2021 Transcribed Document [facility] [place] [address] [place] [address] ProviderPerry MD [address] [place] [phone] Social History Tobacco Use Types Packs/Day Years [...] CARE BEDSIDE NON-EXEMPT - 01/23/2021 16:19 EDT Electronically signed by Carlotta, [facility] Conversion Global Climate Change Analyst Cerner at 12/07/2022 6:03 PM CDT documented in this encounter Plan of Treatment Not on file documented as of this encounter Visit Diagnoses Not on filedocumented in this encounter Care Teams Supply Crib Attendant Relationship Specialty Start Date End Date Yuan Mccracken MD [address] [place] [address] PCP - General Family Medicine 09/23/22 documented as of this encounter
--- OUTSIDE RECORDS SUMMARY | 2025-05-31 10:45 | XMS_ITS | Encounter Summary ---
Author Organization [employer] ([place], [place], [place], [place]) Address [address] [place] [address] Care Team Providers Care Ssrs Report Developer Name Role Phone Yuan Mccracken MD Primary Care Provider [phone] Encounter Details Date Type Department Care Team (Late st Contact Info) Description 01/20/2021 Transcribed Document [facility] [place] Family Medicine [address] [place] [address] ProviderPerry MD [address] [place] [address] Social History Tobacco Use Types [...] On: 01/21/2021 9:05 EDT by ALFRED RAPHAEL, LORENA General Information, PT Visit Type, PT [...] currently due to pt recently discharged from [facility] to a SNF Persons Assisting Patient at [...] ALFRED RAPHAEL, PT - 01/21/2021 9:05 EDT Prison Goals Mobility/Bed Mobility LTG PT Grid Goal [...] Information : Open area on coccyx was [id number] and was pink. She got a 3 [...] ALFRED RAPHAEL, PT - 01/21/2021 9:05 EDT documented in this encounter Plan of Treatment Not on file documented as of this encounter Visit Diagnoses Not on filedocumented in this encounter Care Teams Ssrs Report Developer Relationship Specialty Start Date End Date Yuan Mccracken MD [address] [place] [phone] PCP - General Family Medicine 09/23/22 documented as of this encounter
--- OUTSIDE RECORDS SUMMARY | 2025-05-31 10:45 | XMS_ITS | Encounter Summary ---
Author Organization [employer] ([place], [place], [place], [place]) Address [address] [place] [address] Care Team Providers Care Rug Measurer Name Role Phone Yuan Mccracken MD Primary Care Provider [phone] Encounter Details Date Type Department Care Team (Late st Contact Info) Description 01/20/2021 Transcribed Document [facility] [place] [address] [place] [address] ProviderPerry MD [address] [place], [place] [id number] Social History Tobacco Use Types Packs/Day Years [...] SOA, Acidosis, Renal Failure, hyperkalemia, argenis lo Maryann Liu Rn-Enterostomyobany - 01/20/2021 13:50 EDT WOCN Assessment Summary [...] 01/20/2021 14:20 EDT Wound & Pressure Ulcer WO Wound Pressure Ulcer Documentation : [id number] Abnormality: Leg Left, Right Lower on 01/20/2021 11:00 by Maryann Liu Rn-Enterostomyobany I/W/A Present on Admission to Hospital: Yes I/W/A Drainage Amount: Minimal I/W/A Drainage Description: Serosanguineous, Serous I/W/A Incision/Wound Comment: hyperkeratosis Pressure Ulcer Assessment: Coccyx on 01/20/2021 11:00 by Maryann Liu Rn-Enterostomyobany Present on Adm to Hosp: Yes Stage: Deep tissue pressure injury Device Related: No Dressing Status: Intact Dressing Activity: Assessed, Not due Wound Bed Description: Intact skin (dark red/purple) Bed Color(s): Purple/Maroon Wound Edge: Attached Surrounding Tissue: Erythema Length: 4 Width: 0.5 Depth: 0.1 Drainage Amount: None Photographed: No Healing, PU: Initial WOCN Ostomy Documentation : No ostomy assessments reported. Maryann Liu Rn-Enterostomyobany - 01/20/2021 13:50 EDT documented in this encounter Plan of Treatment Not on file documented as of this encounter Visit Diagnoses Not on filedocumented in this encounter Care Teams Rug Measurer Relationship Specialty Start Date End Date Yuan cMcracken MD [address] [place] [phone] PCP - General Family Medicine 09/23/22 documented as of this encounter
--- OUTSIDE RECORDS SUMMARY | 2025-05-31 10:45 | XMS_ITS | Encounter Summary ---
Author Organization [employer] ([place], [place], [place], [place]) Address [address] [place] [address] Care Team Providers Care Special Tax Auditor Name Role Phone Yuan Mccracken MD Primary Care Provider [phone] Encounter Details Date Type Department Care Team (Late st Contact Info) Description 01/20/2021 Transcribed Document [facility] [place] Family Medicine [address] [place] [address] ProviderPerry MD [address] [place] [id number] Social History Tobacco Use Types Packs/Day Years Used Date Smoking Tobacco: Never Assessed Comments Unknown Sex and Gender Information Value Date Recorded Sex Assigned at Not on file Legal Sex Female 12:32 PM CDT Gender Identity Not on file Sexual Orientation Not on file documented as of this encounter Miscellaneous Notes * Cerner Conversion Note - Perry ProviderMD - 01/20/2021 9:21 AM CDT Consult Phone Call Documentation Entered On: 01/20/2021 10:32 EDT Performed On: 01/20/2021 9:21 EDT by Kassie Crawford Patient Fire Marshal Refinery Godwin Phone Call for Consults Consult Phone Call/Page Attempt : First call Consult Reason : for new onset afib RVR overnight Physician Requesting Consult : PRINCESS RIVERA MD Provider Service Notified Name : Cardiology Kassie Crawford Patient Fire Marshal Refinery I - 01/20/2021 10:32 EDT documented in this encounter Plan of Treatment Not on file documented as of this encounter Visit Diagnoses Not on filedocumented in this encounter Care Teams Special Tax Auditor Relationship Specialty Start Date End Date Yuan Mccracken MD [address] [place] [phone] PCP - General Family Medicine 09/23/22 documented as of this encounter
--- OUTSIDE RECORDS SUMMARY | 2025-05-31 10:46 | XMS_ITS | Encounter Summary ---
Author Organization [employer] ([place], [place], [place], [place]) Address [address] [place] [address] Care Team Providers Care City Wellness Coordinator Name Role Phone Yuan Mccracken MD Primary Care Provider [phone] Encounter Details Date Type Department Care Team (Late st Contact Info) Description 01/16/2021 Transcribed Document [facility] [place] [address] [place] [address] ProviderPerry MD [address] [place] [address] Social History Tobacco Use Types [...] ProviderMD - 01/16/2021 7:55 PM CDT Evaluation, Physical [...] currently due to pt recently discharged from [facility] to a SNF Persons Assisting [...] : Independent Prior LOF Transfer : Independent HELLENFRANCISCO Amber, PT - 01/19/2021 12:58 EDT Prior LOF Assist with ADL Comment : indep. ADLs typically but reports her sister helps her on occasion and says when I just don't feel like getting up , does not use AD, DME is her 's HELLEN FRANCISCO Clark, PT - 01/19/2021 12:58 EDT Intervention Summary [...] WFL Left UE Strength : WFL FRANCISCO MACEDO, PT - 01/19/2021 12:58 EDT Lower Extremity [...] FRANCISCO MACEDO, PT - 01/19/2021 12:58 EDT Left Lower [...] PT - 01/19/2021 12:58 EDT] ) FRANCISCO MCAEDO, PT - 01/19/2021 12:58 EDT Edu Topics Physical Therapy Education Grid Balance Training : Returns demonstration, Needs further teaching Bed Mobility Training : Returns demonstration, Needs further teaching Role of Physical Therapy : Verbalizes understanding Safety : Verbalizes understanding, Returns demonstration, Needs further teaching, Needs reinforcement Transfer Training : Returns demonstration, Needs further teaching FRANCISCO MACEDO, PT - 01/19/2021 12:58 EDT Indication Assesessment, [...] Safety education, Therapeutic exercises, Transfer training FRANCISCO MACEDO Amber, PT - 01/19/2021 12:58 EDT Short Term [...] 01/26/2021 EDT Goal Status : Intial Goal HELLENFRANCISCO RODRIGUEZ Amber, PT - 01/19/2021 12:58 EDT Winter Intern Goals Mobility/Bed Mobility LTG PT Grid Goal #1 Goal #2 Activity : Supine to sit Sit to stand Assist : Independent, modified Independent, modified Date to Meet : 02/02/2021 EDT 02/02/2021 EDT Goal Status : Intial Goal Intial Goal FRANCISCO MACEDO Amber, PT - 01/19/2021 12:58 EDT FRANCISCO MACEDO Amber, PT - 01/19/2021 12:58 EDT Ambulation LTG Grid Goal #1 Device : Walker, front wheel Distance : 150 ft Assist : Independent, modified Date to Meet : 02/02/2021 EDT Goal Status : Intial Goal FRANCISCO MACEDO Amber, PT - 01/19/2021 12:58 EDT Treatment [...] to touch BLE, worse on L FRANCISCO MACEDO, PT - 01/19/2021 12:58 EDT Image 1 - Images currently included in the form version of this document have not been included in the text rendition version of the form. Anticipated Discharge Needs, OT/PT Anticipated Discharge to : Unit, rehabilitation Recommend Continued Therapy at Discharge : Yes FRANCISCO MACEDO PT - 01/19/2021 12:58 EDT Kayenta PT Charges PT Eval Moderate Complexity : 1 FRANCISCO MACEDO, PT - 01/19/2021 12:58 EDT documented in this encounter Plan of Treatment Not on file documented as of this encounter Visit Diagnoses Not on filedocumented in this encounter Care Teams City Wellness Coordinator Relationship Specialty Start Date End Date Yuan Mccracken MD [address] [place] [phone] PCP - General Family Medicine 09/23/22 documented as of this encounter
--- OUTSIDE RECORDS SUMMARY | 2025-05-31 10:46 | XMS_ITS | Encounter Summary ---
Author Organization [employer] ([place], [place], [place], [place]) Address [address] [place] [address] Care Team Providers Care Explosive Ordnance Disposal Technician Name Role Phone Yuan Mccracken MD Primary Care Provider [phone] Encounter Details Date Type Department Care Team (Late st Contact Info) Description 01/19/2021 Transcribed Document [facility] [place] [address] [place] [address] ProviderPerry MD [address] [place] [phone] Social History Tobacco Use Types Packs/Day Years [...] be infected. Initially, [place] count was [id number]. With hydration, her renal function is now [...] proceed with stone extraction or stent placement. /[id number] Matt Allen MD [facility]/AQ / [facility] / MODL /[id number] Electronically signed by Carlotta, [facility] Conversion Optical Scientist Cerner at 12/07/2022 6:07 PM CDT documented in this encounter Plan of Treatment Not on file documented as of this encounter Visit Diagnoses Not on filedocumented in this encounter Care Teams Explosive Ordnance Disposal Technician Relationship Specialty Start Date End Date Yuan Mccracken MD [address] [place] [phone] PCP - General Family Medicine 09/23/22 documented as of this encounter
--- OUTSIDE RECORDS SUMMARY | 2025-05-31 10:46 | XMS_ITS | Encounter Summary ---
Author Organization [employer] ([place], [place], [place], [place]) Address [address] [place] [address] Care Team Providers Care Med Surg Rn Name Role Phone Yuan Mccracken MD Primary Care Provider [phone] Encounter Details Date Type Department Care Team (Late st Contact Info) Description 01/16/2021 Transcribed Document [facility] [place] [address] [place] [address] ProviderPerry MD [address] [place] [address] Social History Tobacco Use Types [...] 01/19/2021 11:25 EDT by Karla Ramon OCCUPATIONAL TERRI NON-EXEMPT General Information, OT Visit Type, OT [...] but is currently at rehab in a alf Persons Assisting Patient at Home : Other: [...] Independent Prior LOF Grooming, OT : Independent Karla Ramon OCCUPATIONAL THERAPIST NON-EXEMPT - 01/19/2021 [...] OCCUPATIONAL THERAPIST NON-EXEMPT - 01/19/2021 12:47 EDT [facility] Goals, OT Grooming LTG Grid Goal #1 [...] OCCUPATIONAL THERAPIST NON-EXEMPT - 01/19/2021 12:[address] [facility] OT Charges OT Selfcare/Hm Mgmt Ea 15 Min : 1 OT Eval Moderate Complexity : 1 Karla Ramon OCCUPATIONAL THERAPIST NON-EXEMPT - 01/19/2021 12:47 EDT Electronically signed by Carlotta [facility] Conversion Spool Cleaner Cerner at 12/07/2022 6:30 PM CDT documented in this encounter Plan of Treatment Not on file documented as of this encounter Visit Diagnoses Not on filedocumented in this encounter Care Teams Med Surg Rn Relationship Specialty Start Date End Date Yuan Mccracken MD [facility] [place] [phone] PCP - General Family Medicine 09/23/22 documented as of this encounter
--- OUTSIDE RECORDS SUMMARY | 2025-05-31 10:46 | XMS_ITS | Encounter Summary ---
Author Organization [employer] ([place], [place], [place], [place]) Address [address] [place] [address] Care Team Providers Care Wind Energy Engineer Name Role Phone Yuan Mccracken MD Primary Care Provider [phone] Encounter Details Date Type Department Care Team (Late st Contact Info) Description 01/28/2021 Transcribed Document [facility] [place] [facility] [address] ProviderPerry MD [address] [place] [phone] Social History Tobacco Use Types Packs/Day Years [...] to change BLE wraps tomorrow 01/29 CESIA WLISON, PT - 01/28/2021 14:46 EDT documented in this encounter Plan of Treatment Not on file documented as of this encounter Visit Diagnoses Not on filedocumented in this encounter Care Teams Wind Energy Engineer Relationship Specialty Start Date End Date Yuan Mccracken MD [address] [place] [phone] PCP - General Family Medicine 09/23/22 documented as of this encounter
--- OUTSIDE RECORDS SUMMARY | 2025-05-31 10:46 | XMS_ITS | Encounter Summary ---
Author Organization [email or web address] ([place], [place], [place], [place]) Address [address] [place] [address] Care Team Providers Care Pot Sander Name Role Phone Yuan Mccracken MD Primary Care Provider [phone] Encounter Details Date Type Department Care Team (Late st Contact Info) Description 01/16/2021 Transcribed Document [facility] [place] [address] [place] [address] ProviderPerry MD [address] [place] [address] Social History Tobacco Use Types Packs/Day Years Used Date Smoking Tobacco: Never Assessed Comments Unknown Sex and Gender Information Value Date Recorded Sex Assigned at Not on file Legal Sex Female 12:32 PM CDT Gender Identity Not on file Sexual Orientation Not on file documented as of this encounter Miscellaneous Notes * Cerner Conversion Note - Perry ProviderMD - 01/16/2021 7:15 PM CDT ED Event [...] on filedocumented in this encounter Care Teams Pot Sander Relationship Specialty Start Date End Date Yuan Mccracken MD [address] [place] [phone] PCP - General Family Medicine 09/23/22 documented as of this encounter
--- OUTSIDE RECORDS SUMMARY | 2025-05-31 10:46 | XMS_ITS | Encounter Summary ---
Author Organization [employer] ([place], [place], [place], [place]) Address [address] [place] [address] Care Team Providers Care Dial Refinisher Name Role Phone Yuan Mccracken MD Primary Care Provider [phone] Encounter Details Date Type Department Care Team (Late st Contact Info) Description 01/28/[address] [facility] [place] [facility] [place] [address] ProviderPerry MD [address] [place] [address] Social History Tobacco Use Types Packs/Day Years Used Date Smoking Tobacco: Never Assessed Comments Unknown Sex and Gender Information Value Date Recorded Sex Assigned at Not on file Legal Sex Female 12:32 PM CDT Gender Identity Not on file Sexual Orientation Not on file documented as of this encounter Miscellaneous Notes * Cerner Conversion Note - Perry ProviderMD - 01/28/2021 8:04 AM CDT UM Authorization Entered On: 01/28/2021 8:04 EDT Performed On: 01/28/2021 8:04 EDT by DWIGHT PERALTA, RN-Utilization Review Primary Insurance Authorization Authorization and Policy Numbers : Insurance 1 Health Plan: MEDICAID PENDING Policy Number: [id number] Authorization Number: Insurance Primary Name : MEDICAID PENDING Policy Number: [id number] Authorized Service Begin Date-Primary : 01/16/2021 EDT [...] 01/20/2021 13:51) DWIGHT PERALTA, RN-Utilization Review - 01/28/2021 8:04 EDT documented in this encounter Plan of Treatment Not on file documented as of this encounter Visit Diagnoses Not on filedocumented in this encounter Care Teams Dial Refinisher Relationship Specialty Start Date End Date Yuan Mccracken MD [address] [place] [phone] PCP - General Family Medicine 09/23/22 documented as of this encounter
--- OUTSIDE RECORDS SUMMARY | 2025-05-31 10:46 | XMS_ITS | Encounter Summary ---
Author Organization [employer] ([place], [place], [place], [place]) Address [address] [place] [address] Care Team Providers Care Site Medical Director Name Role Phone Yuan Mccracken MD Primary Care Provider [phone] Encounter Details Date Type Department Care Team (Late st Contact Info) Description 01/28/2021 Transcribed Document [facility] Family Medicine [place] [address] ProviderPerry MD [address] [place] [phone] Social History Tobacco Use Types Packs/Day Years Used Date Smoking Tobacco: Never Assessed Comments Unknown Sex and Gender Information Value Date Recorded Sex Assigned at Not on file Legal Sex Female 12:32 PM CDT Gender Identity Not on file Sexual Orientation Not on file documented as of this encounter Miscellaneous Notes * Cerner Conversion Note - Perry ProviderMD - 01/28/2021 8:19 AM CDT Bronchodilator Assessment [...] Bronchodilator Assessment Score : 3 INÉS AMADO, BEEF PLUCK TRIMMER - 01/28/2021 8:19 EDT Electronically signed by [facility] Conversion Sash Sticker Cerner at 12/07/2022 6:22 PM CDT documented in this encounter Plan of Treatment Not on file documented as of this encounter Visit Diagnoses Not on filedocumented in this encounter Care Teams Site Medical Director Relationship Specialty Start Date End Date Yuan Mccracken MD [address] [place] [phone] PCP - General Family Medicine 09/23/22 documented as of this encounter
--- OUTSIDE RECORDS SUMMARY | 2025-05-31 10:46 | XMS_ITS | Encounter Summary ---
Author Organization [employer] ([place], [place], [place], [place]) Address [address] [place] [address] Care Team Providers Care Commercial Loan Closer Name Role Phone Yuan Mccracken MD Primary Care Provider [phone] Encounter Details Date Type Department Care Team (Late st Contact Info) Description 01/16/2021 Transcribed Document [facility] [place] [facility] [place] [address] ProviderPerry MD [address] [place] [address] Social History Tobacco Use Types [...] Perry ProviderMD - 01/16/2021 5:30 PM CDT ED Triage [...] : 2 - Emergent Tracking Group : [facility] ED Dulce Miller RN - 01/16/2021 17:33 EDT Mode of Arrival : Stretcher Transported to ED by : Ambulance/ALS EMS Service : [facility] To Room Via : Stretcher Accompanied By [...] PNED ; Probability: 0 ; Diagnosis Code: [id number] ED Height and Weight Height Source : Stated Height Entry Format : [place] Height, Feet : 5 ft(Converted to: 152 cm, 60 Inch) Height, Inches : 4 Inch(Converted to: 0 ft 4 Inch, 10.16 cm) Clinical Height : 162.56 cm Weight Source, ED : Critical estimated dosing weight Weight Entry Format : [place] Weight, Pounds : 270 lb Clinical Dosing Weight : 122.73 kg Body Surface Area (BSA) : 2.22 m2 Body Mass Index : 46.4 kg/m2 (>HHI) [place] Body Weight (IBW) : 54.3 kg Dulce [...] the text rendition version of the form. Electronically signed by Gayle Laguerre Conversion Nuclear Plant Construction Worker Cerner at 12/07/2022 6:20 PM CDT documented in this encounter Plan of Treatment Not on file documented as of this encounter Visit Diagnoses Not on filedocumented in this encounter Care Teams Commercial Loan Closer Relationship Specialty Start Date End Date Yuan Mccracken MD [address] [place] [phone] PCP - General Family Medicine 09/23/22 documented as of this encounter
--- OUTSIDE RECORDS SUMMARY | 2025-05-31 10:46 | XMS_ITS | Encounter Summary ---
Author Organization [employer] ([place], [place], [place], [place]) Address [address] [place] [address] Care Team Providers Care Head Bellhop Captain Name Role Phone Yuan Mccracken MD Primary Care Provider [phone] Encounter Details Date Type Department Care Team (Late st Contact Info) Description 01/16/2021 Transcribed Document [facility] [place] [address] [place] [address] ProviderPerry MD [address] [place] [phone] Social History Tobacco Use Types Packs/Day Years [...] 1960 Associated Diagnoses: None Author: HARLAN JARA MD-[facility] Patient seen and dictated [id number] MISHA vs CKD Hyperkalemia Acidosis Cellulitis Anemia Bed Bugs Plan Renal and K better Continue with bicarb drip Keep Coulter in place Labs ordered Electronically signed by [facility] Conversion Ecology Professor Cerner at 12/07/2022 6:18 PM CDT documented in this encounter Plan of Treatment Not on file documented as of this encounter Visit Diagnoses Not on filedocumented in this encounter Care Teams Head Bellhop Captain Relationship Specialty Start Date End Date uYan Mccracken MD [address] [place] [phone] PCP - General Family Medicine 09/23/22 documented as of this encounter
--- OUTSIDE RECORDS SUMMARY | 2025-05-31 10:46 | XMS_ITS | Encounter Summary ---
Author Organization [employer] ([place], [place], [place], [place]) Address [address] [place] [address] Care Team Providers Care Issuing Operator Name Role Phone Yuan Mccracken MD Primary Care Provider [phone] Encounter Details Date Type Department Care Team (Late st Contact Info) Description 01/28/2021 Transcribed Document [facility] [place] [facility] [place] [address] ProviderPerry MD [address] [place] [address] Social History Tobacco Use Types Packs/Day Years Used Date Smoking Tobacco: Never Assessed Comments Unknown Sex and Gender Information Value Date Recorded Sex Assigned at Not on file Legal Sex Female 12:32 PM CDT Gender Identity Not on file Sexual Orientation Not on file documented as of this encounter Miscellaneous Notes * Cerner Conversion Note - Perry ProviderMD - 01/28/2021 2:00 AM CDT Air Quality Chemist Details Entered On: 01/28/2021 2:31 EDT Performed [...] ANTONIO OTERO RN - 01/28/2021 2:30 EDT Electronically signed by Carlotta [facility] Conversion Butcher Fish Cerner at 12/07/2022 6:13 PM CDT documented in this encounter Plan of Treatment Not on file documented as of this encounter Visit Diagnoses Not on filedocumented in this encounter Care Teams Issuing Operator Relationship Specialty Start Date End Date Yuan Mccracken MD [address] [place] [phone] PCP - General Family Medicine 09/23/22 documented as of this encounter
--- OUTSIDE RECORDS SUMMARY | 2025-05-31 10:46 | XMS_ITS | Encounter Summary ---
Author Organization [employer] ([place], [place], [place], [place]) Address [address] [place] [address] Care Team Providers Care Acupressurist Name Role Phone Yuan Mccracken MD Primary Care Provider [phone] Encounter Details Date Type Department Care Team (Late st Contact Info) Description 01/19/2021 Transcribed Document [facility] [place] Family Medicine [address] [place] [address] ProviderPerry MD [address] [place] [address] Social History Tobacco Use Types Packs/Day [...] Therapy Eval and Treat Ordered By: ZULEYMA MICHEALS PA-C 01/21/2021 09:12 PT Additional Treatment Ordered [...] : pt sat EOB TODD ENRIQUEZ PTA - 01/22/2021 16:18 EDT Functional Mobility Mobility Grid Bed Scooting : Rehab Minimal assistance (Comment: x 2 [TODD ENRIQUEZ PTA - 01/22/2021 16:18 EDT] ) Supine to Sit : Supervision/set-up Sit to Supine : Rehab Moderate assistance (Comment: BLE [TODD ENRIQUEZ PTA - 01/22/2021 16:18 EDT] ) TODD ENRIQUEZ PTA - 01/22/2021 16:18 EDT Gait Training/Assessment, PT Gait Assistance Level : Unable to assess/activity not appropriate Gait Training Comment : pt declined attempting to stand today TODD ENRIQUEZ, BENJAMIN - 01/22/2021 16:18 EDT Cognitive Treatment, PT [...] Assesessment, PT Physical Therapy Indicated : Yes ENRIQUEZ TODDBENJAMIN - 01/22/2021 16:18 EDT Plan of Care, [...] TODD ENRIQUEZ PTA - 01/22/2021 16:18 EDT Jail Goals Mobility/Bed Mobility LTG PT Grid Goal [...] Goal Status : Progressing, continue TODD ENRIQUEZ, INTELLIGENCE GROUP SUPERVISOR - 01/22/2021 16:18 EDT Other PT LTG Grid Goal #1 Other : Open area to measure 1cmX0.5cm Date to Meet : 02/04/2021 EDT Goal Status : Progressing, continue TODD ENRIQUEZ, INTELLIGENCE GROUP SUPERVISOR - 01/22/2021 16:18 EDT Treatment Note Subjective Comment : pt agreeable to PTx, nsg cleared pt for PTx Assessment : pt has very poor endurance at this time due to feeling SOA, pt would benefit from short term rehab to increase endurance and decrease safety risk and caregiver burden Plan for Treatment : continue POC TODD ENRIQUEZ, INTELLIGENCE GROUP SUPERVISOR - 01/22/2021 16:18 EDT Pain Assessment Pain Score During-Intervention : 4 Location : Legs, bilateral Pain Improved by : Relaxation, Repositioning TODD ENRIQUEZ, INTELLIGENCE GROUP SUPERVISOR - 01/22/2021 16:18 EDT Image 1 - Images currently included in the form version of this document have not been included in the text rendition version of the form. Anticipated Discharge Needs, OT/PT Anticipated Discharge to : Unit, rehabilitation Recommend Continued Therapy at Discharge : Yes TODD ENRIQUEZBENJAMIN - 01/22/2021 16:[address] [facility] PT Charges INTELLIGENCE GROUP SUPERVISOR PT Ther Activities Ea 15 Min-INTELLIGENCE GROUP SUPERVISOR : 1 TODD ENRIQUEZBENJAMIN - 01/22/2021 16:18 EDT Electronically signed by Carlotta [facility] Conversion Supervisor Pullet Farm Cerner at 12/10/2022 9:05 AM CDT documented in this encounter Plan of Treatment Not on file documented as of this encounter Visit Diagnoses Not on filedocumented in this encounter Care Teams Acupressurist Relationship Specialty Start Date End Date Yuan Mccracken MD [facility] [place] [address] PCP - General Family Medicine 09/23/22 documented as of this encounter
--- OUTSIDE RECORDS SUMMARY | 2025-05-31 10:46 | XMS_ITS | Encounter Summary ---
Author Organization [employer] ([place], [place], [place], [place]) Address [address] [place] [address] Care Team Providers Care Health Center Associate Name Role Phone Yuan Mccracken MD Primary Care Provider [phone] Encounter Details Date Type Department Care Team (Late st Contact Info) Description 01/26/2021 Transcribed Document [facility] [place] [facility] [place] [address] ProviderPerry MD [address] [place] [id number] Social History Tobacco Use Types Packs/Day Years Used Date Smoking Tobacco: Never Assessed Comments Unknown Sex and Gender Information Value Date Recorded Sex Assigned at Not on file Legal Sex Female 12:32 PM CDT Gender Identity Not on file Sexual Orientation Not on file documented as of this encounter Miscellaneous Notes * Cerner Conversion Note - Perry ProviderMD - 01/26/2021 11:23 AM CDT Event Note Entered On: 01/26/2021 11:26 EDT Performed On: 01/26/2021 11:23 EDT by GENEVIEVE PENNINGTON RN-NAVIGATOR CANCER Event Note Event Date/Time : 01/26/2021 11:23 EDT Event Location : Other: Lung Care Navigation Follow up Description of Event : Call back received from bryan's son - per patient she does not have any primary care physician. Will reach out to patient resource center to request PCP Establishment and will follow up. GENEVIEVE PENNINGTON RN-NAVIGATOR CANCER - 01/26/2021 11:23 EDT documented in this encounter Plan of Treatment Not on file documented as of this encounter Visit Diagnoses Not on filedocumented in this encounter Care Teams Health Center Associate Relationship Specialty Start Date End Date Yuan Mccracken MD [address] [place] [address] PCP - General Family Medicine 09/23/22 documented as of this encounter
--- OUTSIDE RECORDS SUMMARY | 2025-05-31 10:46 | XMS_ITS | Encounter Summary ---
Author Organization [employer] ([place], [place], [place], [place]) Address [address] [place] [address] Care Team Providers Care Certified Lactation Educator Name Role Phone Yuan Mccracken MD Primary Care Provider [phone] Encounter Details Date Type Department Care Team (Late st Contact Info) Description 01/28/2021 Transcribed Document [facility] [place] Family Medicine [facility] [place] [address] ProviderPerry MD [address] [place], [place] [phone] Social History Tobacco Use Types Packs/Day Years Used Date Smoking Tobacco: Never Assessed Comments Unknown Sex and Gender Information Value Date Recorded Sex Assigned at Not on file Legal Sex Female 12:32 PM CDT Gender Identity Not on file Sexual Orientation Not on file documented as of this encounter Miscellaneous Notes * Cerner Conversion Note - Perry ProviderMD - 01/28/2021 5:59 PM CDT MEWS Score Entered On: 01/28/2021 17:59 EDT Performed On: 01/28/2021 17:59 EDT by Sienna Simmons, Transit Clerk-Nursing MEWS Score MEWS Respiratory Rate : 15-20 MEWS Heart Rate : 51-100 MEWS Systolic Blood Pressure : 81-100 MEWS Temperature : 36.1 to 38 Celsius / 96.9 to 100.4 Fahrenheit MEWS Conscious Level (AVPU) : Alert MEWS Score : 2 Sienna Simmons, Transit Clerk-Nursing - 01/28/2021 17:59 EDT Electronically signed by Carlotta [facility] Conversion Follow Up Specialist Cerner at 12/07/2022 6:14 PM CDT documented in this encounter Plan of Treatment Not on file documented as of this encounter Visit Diagnoses Not on filedocumented in this encounter Care Teams Certified Lactation Educator Relationship Specialty Start Date End Date Yuan Mccracken MD [address] [place] [address] PCP - General Family Medicine 09/23/22 documented as of this encounter
--- OUTSIDE RECORDS SUMMARY | 2025-05-31 10:46 | XMS_ITS | Encounter Summary ---
Author Organization [employer] ([place], [place], [place], [place]) Address [address] [place] [address] Care Team Providers Care Material Mover Name Role Phone Yuan Mccracken MD Primary Care Provider [phone] Encounter Details Date Type Department Care Team (Late st Contact Info) Description 01/16/2021 Transcribed Document [facility] [place] Family [place] [facility] [place] [address] ProviderPerry MD [address] [place] [address] Social History Tobacco Use Types Packs/Day Years Used Date Smoking Tobacco: Never Assessed Comments Unknown Sex and Gender Information Value Date Recorded Sex Assigned at Not on file Legal Sex Female 12:32 PM CDT Gender Identity Not on file Sexual Orientation Not on file documented as of this encounter Miscellaneous Notes * Cerner Conversion Note - Perry ProviderMD - 01/16/2021 8:01 PM CDT ED Event [...] JENNY CHAN RN - 01/16/2021 20:01 EDT Electronically signed by Carlotta [facility] Conversion Capacity Planning Engineer Cerner at 12/07/2022 6:18 PM CDT documented in this encounter Plan of Treatment Not on file documented as of this encounter Visit Diagnoses Not on filedocumented in this encounter Care Teams Material Mover Relationship Specialty Start Date End Date Yuan Mccracken MD [address] [place] [phone] PCP - General Family Medicine 09/23/22 documented as of this encounter
--- OUTSIDE RECORDS SUMMARY | 2025-05-31 10:46 | XMS_ITS | Encounter Summary ---
Author Organization [employer] ([place], [place], [place], [place]) Address [address] [place] [address] Care Team Providers Care Resident Intern Name Role Phone Yuan Mccracken MD Primary Care Provider [phone] Encounter Details Date Type Department Care Team (Late st Contact Info) Description 01/19/2021 Transcribed Document [facility] [place] [address] [place] [address] ProviderPerry MD [address] [place] [address] Social History Tobacco Use Types Packs/Day [...] Performed On: 01/22/2021 15:30 EDT by Georgina Caldwell Non Emp Student Occupational Therapist General Information, [...] : 01/16/2021 19:34 Co-treated by, OT : medical assistant (TANK CHARGER) Personal Devices : Personal Devices Dentures, upper [...] Student Occupational Therapist - 01/22/2021 15:37 EDT [facility] Goals, OT Grooming LTG Grid Goal #1 [...] with setup. Pt completed exercises EOB with TANK CHARGER. Pt with SOB and requested to go back to supine. Pt with mod A to return to supine. Pt left supine in bed with all needs met and CL in reach. Georgina Caldwell Non Emp Student Occupational Therapist - 01/22/2021 15:37 EDT Assessment : Pt progressing towards goals. OTR/L has reviewed and agrees with documentation PAT SAVAGE OTR/Barry - 01/22/2021 15:41 EDT Plan for Treatment [...] Student Occupational Therapist - 01/22/2021 15:37 EDT documented in this encounter Plan of Treatment Not on file documented as of this encounter Visit Diagnoses Not on filedocumented in this encounter Care Teams Resident Intern Relationship Specialty Start Date End Date Yuan Mccracken MD [facility] [address] PCP - General Family Medicine 09/23/22 documented as of this encounter
--- OUTSIDE RECORDS SUMMARY | 2025-05-31 10:46 | XMS_ITS | Encounter Summary ---
Author Organization [employer] ([place], [place], [place], [place]) Address [address] [place] [address] Care Team Providers Care Exhibits Coordinator Name Role Phone Yuan Mccracken MD Primary Care Provider [phone] Encounter Details Date Type Department Care Team (Late st Contact Info) Description 01/26/2021 Transcribed Document [facility] [place] Family Medicine [facility] [place] [address] ProviderPerry MD [address] [place] [address] Social History Tobacco Use Types Packs/Day Years Used Date Smoking Tobacco: Never Assessed Comments Unknown Sex and Gender Information Value Date Recorded Sex Assigned at Not on file Legal Sex Female 12:32 PM CDT Gender Identity Not on file Sexual Orientation Not on file documented as of this encounter Miscellaneous Notes * Cerner Conversion Note - Perry ProviderMD - 01/26/2021 3:47 AM CDT Bronchodilator Assessment [...] Bronchodilator Assessment Score : 2 SAMUEL ADDISON, PAROLE HEARING OFFICER - 01/26/2021 3:47 EDT Electronically signed by Carlotta [facility] Conversion Client Development Consultant Cerner at 12/07/2022 6:16 PM CDT documented in this encounter Plan of Treatment Not on file documented as of this encounter Visit Diagnoses Not on filedocumented in this encounter Care Teams Exhibits Coordinator Relationship Specialty Start Date End Date Yuan Mccracken MD [address] [place] [phone] PCP - General Family Medicine 09/23/22 documented as of this encounter
--- OUTSIDE RECORDS SUMMARY | 2025-05-31 10:46 | XMS_ITS | Encounter Summary ---
Author Organization [employer] ([place], [place], [place], [place]) Address [address] [place] [address] Care Team Providers Care Astronomy Instructor Name Role Phone Yuan Mccracken MD Primary Care Provider [phone] Encounter Details Date Type Department Care Team (Late st Contact Info) Description 01/26/2021 Transcribed Document [facility] [place] Family Medicine [address] [place] [address] ProviderPerry MD [address] [place] [address] Social History Tobacco Use Types Packs/Day Years [...] On: 01/26/2021 15:09 EDT by Mallorie Betancur, Channel Business Manager Patient Resource Center Provider Status : No Assigned Primary Care Established Provider Name : NO PCP Patient Phone Number : [phone] Patient Insurance Type : Insurance pending Source of Referral : Case management Location of Patient : Case management referral Primary Care Scheduled : No Specialty Care Scheduled : No Qualify for Diabetes and/or Nutrition Referral : No Wound Care Appointment Made : No Why Patient Visited ED- Specialty spent : Other How Patient Arrived at ED : Other Primary Language : Malawian Patient Resource Center Comment : Patient needs a PCP. Called and spoke to patient and she states she would like a PCP in [place]. Called Dr. Feliz's office and they state they will not take her as a patient until she receives her card. Called patient back and informed her of instructions. Follow Up Needed : No Mallorie Betancur, Channel Business Manager - 01/26/2021 15:09 EDT Electronically signed by [facility], [facility] Conversion Geographic Analyst Cerner at 12/07/2022 6:21 PM CDT documented in this encounter Plan of Treatment Not on file documented as of this encounter Visit Diagnoses Not on filedocumented in this encounter Care Teams Astronomy Instructor Relationship Specialty Start Date End Date Yuan Mccracken [place] [address] PCP - General Family Medicine 09/23/22 documented as of this encounter
--- OUTSIDE RECORDS SUMMARY | 2025-05-31 10:46 | XMS_ITS | Encounter Summary ---
Author Organization [employer] ([place], [place], [place], [place]) Address [address] [place] [address] Care Team Providers Care Um Nurse Name Role Phone Yuan Mccracken MD Primary Care Provider [phone] Encounter Details Date Type Department Care Team (Late st Contact Info) Description 01/28/2021 Transcribed Document [facility] [place] Family [place] [address] ProviderPerry MD [address] [place] [address] Social History Tobacco Use Types Packs/Day Years Used Date Smoking Tobacco: Never Assessed Comments Unknown Sex and Gender Information Value Date Recorded Sex Assigned at Not on file Legal Sex Female 12:32 PM CDT Gender Identity Not on file Sexual Orientation Not on file documented as of this encounter Miscellaneous Notes * Cerner Conversion Note - Perry ProviderMD - 01/28/2021 5:00 AM CDT Chart Check - Review Order Profile Entered On: 01/28/2021 5:39 EDT Performed On: 01/28/2021 5:00 EDT by ANTONIO OTERO RN Chart Check Powerplans Initiated/Discontinued as Appropriate : Yes All Active Orders Reviewed : Yes ANTONIO OTERO RN - 01/28/2021 5:38 EDT Electronically signed by Carlotta [facility] Conversion Wafer Line Worker Cerner at 12/07/2022 6:03 PM CDT documented in this encounter Plan of Treatment Not on file documented as of this encounter Visit Diagnoses Not on filedocumented in this encounter Care Teams Um Nurse Relationship Specialty Start Date End Date Yuan Mccracken MD [address] [place] [address] PCP - General Family Medicine 09/23/22 documented as of this encounter
--- OUTSIDE RECORDS SUMMARY | 2025-05-31 10:46 | XMS_ITS | Encounter Summary ---
Author Organization [employer] ([place], [place], [place], [place]) Address [address] [place] [address] Care Team Providers Care Battery Recharger Name Role Phone Yuan Mccracken MD Primary Care Provider [phone] Encounter Details Date Type Department Care Team (Late st Contact Info) Description 01/26/2021 Transcribed Document [facility] [place] [address] [place] [address] ProviderPerry MD [address] [place] [id number] Social History Tobacco Use Types Packs/Day Years [...] spoke to her Son Mr. Ashley @ [phone]. Son will get PCP Information and will call back LCN so LCN and follow up with PCP. Placed Patient in Lung Care Navigation program. Thanks for consult. GENEVIEVE PENNINGTON, RN-NAVIGATOR CANCER - 01/26/2021 11:09 EDT documented in this encounter Plan of Treatment Not on file documented as of this encounter Visit Diagnoses Not on filedocumented in this encounter Care Teams Battery Recharger Relationship Specialty Start Date End Date Yuan Mccracken MD [address] [place] [phone] PCP - General Family Medicine 09/23/22 documented as of this encounter
--- OUTSIDE RECORDS SUMMARY | 2025-05-31 10:46 | XMS_ITS | Encounter Summary ---
Author Organization [email or web address] ([place], [place], [place], [place]) Address [address] [place] [address] Care Team Providers Care Laborer Beam House Name Role Phone Yuan Mccracken MD Primary Care Provider [phone] Encounter Details Date Type Department Care Team (Late st Contact Info) Description 01/28/2021 Transcribed Document [facility] [place] Family Medicine [facility] [place] [address] ProviderPerry MD [address] [place] [id number] Social History Tobacco Use Types Packs/Day Years [...] RT_Q6H, PRN: Wheezing Eliquis: 5 mg, Oral, [id number] Lac-Hydrin 12% topical lotion: 1 Application, Topical, [...] mg tab 5 mg 1 Tab, Oral, [id number] doxycycline hyclate 100 mg cap 100 mg [...] Problem list: Medical Obesity / SNOMED CT [id number] / Confirmed, Active Problems (1) Obesity Physical [...] Source Bed scale Routine Weight Entry Format [place] Routine Weight, Pounds 281 lb Routine Weight [...] Labs (Last four charted values) WBC 8.6 (JAN 09) H 10.8 (JAN 08) H 11.6 (JAN 07) H 12.4 (JAN 06) HB L 8.4 (TOM 09) L 7.9 (TOM 08) L 8.3 (TOM 07) L 8.0 (TOM 06) HCT L 31.1 (TOM 09) L 26.4 (TOM 08) L 27.7 (TOM 07) L 26.8 (TOM 06) Plt 312 (TOM 09) H 424 (TOM 08) H 414 (TOM 07) H 392 (JAN 06) Na 137 (TOM 09) 139 (TOM [...] 36 (JANUARY 19) ALK P 56 (JAN 27) 53 (JAN 25) 57 (JAN 24) 86 (JANUARY 19) T [...] renal funtion - No emergent need of CABLE WIRER. Electronically signed by Carlotta, [facility] Conversion Director Of Retail Marketing Cerner at 12/07/2022 6:12 PM CDT documented in this encounter Plan of Treatment Not on file documented as of this encounter Visit Diagnoses Not on filedocumented in this encounter Care Teams Laborer Beam House Relationship Specialty Start Date End Date Yuan Mccracken MD [address] [place] [address] PCP - General Family Medicine 09/23/22 documented as of this encounter
--- OUTSIDE RECORDS SUMMARY | 2025-05-31 10:46 | XMS_ITS | Encounter Summary ---
Author Organization [employer] ([place], [place], [place], [place]) Address [address] [place] [address] Care Team Providers Care Tax Preparer Name Role Phone Yuan Mccracken MD Primary Care Provider [phone] Encounter Details Date Type Department Care Team (Late st Contact Info) Description 01/26/2021 Transcribed Document [facility] [place] Family Medicine [facility] [place] [address] ProviderPerry MD [address] [place] [id number] Social History Tobacco Use Types Packs/Day Years [...] - Medical Apixaban 5 mg, Oral, Tab, [id number], Routine, Start 01/21/21 10:00:00 EDT, 01/21/21 9:43:00 [...] PRN Eliquis, 5 mg= 1 Tab, Oral, [id number] Lac-Hydrin 12% topical lotion, 1 Application, Topical, [...] mg= 1 Tab, Oral, BID, PRN nystatin, [id number] Units= 5 mL, Swish and Swallow , [...] Lymph # 1.47 x10(3)/uL 01/26/2021 04:35 EDT Barry % 6.7 % 01/26/2021 04:35 EDT Barry # 0.78 K/uL 01/26/2021 04:35 EDT Eos % 1.5 % 01/26/2021 04:35 EDT Eos # 0.17 x10(3)/uL 01/26/2021 04:35 EDT Baso % 0.3 % 01/26/2021 04:35 EDT Baso # 0.03 x10(3)/uL 01/26/2021 04:35 EDT Slide Review No 01/26/2021 04:35 EDT IG# 0.14 x10(3)/uL (High) 01/26/2021 04:35 EDT IG% 1.20 % (High) 01/26/2021 04:35 EDT Electronically signed by [facility], [facility] Conversion Veterinary Physiologist Cerner at 12/07/2022 6:15 PM CDT documented in this encounter Plan of Treatment Not on file documented as of this encounter Visit Diagnoses Not on filedocumented in this encounter Care Teams Tax Preparer Relationship Specialty Start Date End Date Yuan Mccracken MD [address] [place] [phone] PCP - General Family Medicine 09/23/22 documented as of this encounter
--- OUTSIDE RECORDS SUMMARY | 2025-05-31 10:46 | XMS_ITS | Encounter Summary ---
Author Organization [email or web address] ([place], [place], [place], [place]) Address [address] [place] [address] Care Team Providers Care Clearing Distribution Clerk Name Role Phone Yuan Mccracken MD Primary Care Provider [phone] Encounter Details Date Type Department Care Team (Late st Contact Info) Description 01/26/2021 Transcribed Document [facility] Radiology [address] [place] [address] Casandra Ochoa MD [address] [place] [phone] Social History Tobacco Use Types Packs/Day [...] - Medical Apixaban 5 mg, Oral, Tab, [id number], Routine, Start 01/21/21 10:00:00 EDT, 01/21/21 9:43:00 [...] RT_Q4H Eliquis, 5 mg= 1 Tab, Oral, [id number] Lac-Hydrin 12% topical lotion, 1 Application, Topical, [...] mg= 1 Tab, Oral, BID, PRN nystatin, [id number] Units= 5 mL, Swish and Swallow , [...] Lymph # 1.47 x10(3)/uL 01/26/2021 04:35 EDT Gilchrist % 6.7 % 01/26/2021 04:35 EDT Gilchrist # 0.78 K/uL 01/26/2021 04:35 EDT Eos [...] (High) 01/26/2021 14:48 EDT Electronically signed by [facility] Conversion Jogger Operator Cerner at 12/07/2022 6:13 PM CDT documented in this encounter Plan of Treatment Not on file documented as of this encounter Visit Diagnoses Not on filedocumented in this encounter Care Teams Clearing Distribution Clerk Relationship Specialty Start Date End Date Yuan Mccracken MD [address] [place] [address] PCP - General Family Medicine 09/23/22 documented as of this encounter
--- OUTSIDE RECORDS SUMMARY | 2025-05-31 10:46 | XMS_ITS | Encounter Summary ---
Author Organization [employer] ([place], [place], [place], [place]) Address [address] [place] [address] Care Team Providers Care Fiberglass Product Tester Name Role Phone Yuan Mccracken MD Primary Care Provider [phone] Encounter Details Date Type Department Care Team (Late st Contact Info) Description 01/27/2021 Transcribed Document [facility] Radiology [address] [place] [address] Casandra Ochoa MD [address] [place] [phone] Social History Tobacco Use Types Packs/Day [...] - Medical Apixaban 5 mg, Oral, Tab, [id number], Routine, Start 01/21/21 10:00:00 EDT, 01/21/21 9:43:00 [...] RT_Q4H Eliquis, 5 mg= 1 Tab, Oral, [id number] Lac-Hydrin 12% topical lotion, 1 Application, Topical, [...] mg= 1 Tab, Oral, BID, PRN nystatin, [id number] Units= 5 mL, Swish and Swallow , [...] Lymph # 1.41 x10(3)/uL 01/27/2021 03:19 EDT Coffey % 6.4 % 01/27/2021 03:19 EDT Coffey # 0.69 K/uL 01/27/2021 03:19 EDT Eos % 1.7 % 01/27/2021 03:19 EDT Eos # 0.18 x10(3)/uL 01/27/2021 03:19 EDT Baso % 0.4 % 01/27/2021 03:19 EDT Baso # 0.04 x10(3)/uL 01/27/2021 03:19 EDT Slide Review No 01/27/2021 03:19 EDT IG# 0.14 x10(3)/uL (High) 01/27/2021 03:19 EDT IG% 1.30 % (High) 01/27/2021 03:19 EDT Electronically signed by Carlotta [facility] Conversion Teachers Aide Cerner at 12/07/2022 6:22 PM CDT documented in this encounter Plan of Treatment Not on file documented as of this encounter Visit Diagnoses Not on filedocumented in this encounter Care Teams Fiberglass Product Tester Relationship Specialty Start Date End Date Yuan Mccracken MD [address] [place] [address] PCP - General Family Medicine 09/23/22 documented as of this encounter
--- OUTSIDE RECORDS SUMMARY | 2025-05-31 10:46 | XMS_ITS | Encounter Summary ---
Author Organization [employer] ([place], [place], [place], [place]) Address [address] [place] [address] Care Team Providers Care Director Retail Brand Development Name Role Phone Yuan Mccracken MD Primary Care Provider [phone] Encounter Details Date Type Department Care Team (Late st Contact Info) Description 01/27/2021 Transcribed Document [facility] [place] Family Medicine [facility] [place] [address] ProviderPerry MD [address] [place] [address] [phone] Social History Tobacco Use Types Packs/Day Years [...] - Medical Apixaban 5 mg, Oral, Tab, [id number], Routine, Start 01/21/21 10:00:00 EDT, 01/21/21 9:43:00 [...] RT_Q4H Eliquis, 5 mg= 1 Tab, Oral, [id number] Lac-Hydrin 12% topical lotion, 1 Application, Topical, [...] mg= 1 Tab, Oral, BID, PRN nystatin, [id number] Units= 5 mL, Swish and Swallow , [...] Lymph # 1.41 x10(3)/uL 01/27/2021 03:19 EDT [place] % 6.4 % 01/27/2021 03:19 EDT [place] # 0.69 K/uL 01/27/2021 03:19 EDT Eos [...] (High) 01/26/2021 14:48 EDT Electronically signed by [facility] Conversion Warehouse Manager Cerner at 12/07/2022 6:30 PM CDT documented in this encounter Plan of Treatment Not on file documented as of this encounter Visit Diagnoses Not on filedocumented in this encounter Care Teams Director Retail Brand Development Relationship Specialty Start Date End Date Yuan Mccracken MD [address] [place] [phone] PCP - General Family Medicine 09/23/22 documented as of this encounter
--- OUTSIDE RECORDS SUMMARY | 2025-05-31 10:46 | XMS_ITS | Encounter Summary ---
Author Organization [employer] ([place], [place], [place], [place]) Address [address] [place] [address] Care Team Providers Care Machine Staker Name Role Phone Yuan Mccracken MD Primary Care Provider [phone] Encounter Details Date Type Department Care Team (Late st Contact Info) Description 01/16/2021 Transcribed Document [facility] [place] Family Medicine [address] [place] [address] ProviderPerry MD [address] [place] [address] Social History Tobacco Use Types Packs/Day Years Used Date Smoking Tobacco: Never Assessed Comments Unknown Sex and Gender Information Value Date Recorded Sex Assigned at Not on file Legal Sex Female 12:32 PM CDT Gender Identity Not on file Sexual Orientation Not on file documented as of this encounter Miscellaneous Notes * Cerner Conversion Note - Perry ProviderMD - 01/16/2021 10:00 PM CDT Education-Wound Care Entered On: 01/17/2021 6:12 EDT Performed On: 01/16/2021 22:00 EDT by Annamaria Leyva RN Teaching/Learning Assessment Barriers To Learning : None evident Individuals Taught : Patient Readiness to Learn : Cooperative Baseline Knowledge of Topic : Limited Annamaria Leyva RN - 01/17/2021 6:12 EDT Electronically signed by Carlotta [facility] Conversion Fast Foods Worker Cerner at 12/07/2022 6:28 PM CDT documented in this encounter Plan of Treatment Not on file documented as of this encounter Visit Diagnoses Not on filedocumented in this encounter Care Teams Machine Staker Relationship Specialty Start Date End Date Yuan Mccracken MD [facility] [place] [phone] PCP - General Family Medicine 09/23/22 documented as of this encounter
--- OUTSIDE RECORDS SUMMARY | 2025-05-31 10:47 | XMS_ITS | Encounter Summary ---
Author Organization [employer] ([place], [place], [place], [place]) Address [address] [place] [address] Care Team Providers Care Respiratory Care Practitioner Name Role Phone Yuan Mccracken MD Primary Care Provider [phone] Encounter Details Date Type Department Care Team (Late st Contact Info) Description 01/28/2021 Transcribed Document [facility] [place] Family Medicine [address] [place] [address] ProviderPerry MD [address] [place] [address] [phone] Social History Tobacco Use Types Packs/Day Years [...] 01/28/2021 14:57 EDT by Maryjane Gonzalez V, Director Of Parks And Recreation Lidar Scientist Care Management Progress Note Discharge Arrangements : Patient Post-Acute Information Patient Name: CHANI VELASQUEZ Gender: Female : 56 Age: 60 Years No Post-Acute Placement(s) Listed No Post-Acute Service(s) Listed No Curaspan Referral(s) Listed Discharge Options Discussed with Patient : Acute rehabilitation, Home Health, senior living Barriers to Discharge Identified : Clinical Condition of Patient Barriers to Discharge Unresolved : Clinical Condition of Patient Referral Indicators For Complex SWK Interventions : Difficult placement issues/lengthy hospital stay Is the Patient Meeting Medical Necessity : Yes Physician Agreeable to Move Forward with D/C Plan? : Yes Did you Attend Multidisciplinary Rounds? : Yes Maryjane Gonzalez Social Worker Lidar Scientist - 01/28/2021 14:57 EDT Narrative Progress Note Narrative Progress Note : HD#11, elos-4, RRS-Moderate, Boost-3 ID following and stopped IV Vanc and Zosyn. po doxy continued. Nephrology following. leg wounds improving with mist therapy with PT. CM sent updated clinical/therapy updates to all [facility] for possible rehab palcement. Lack of insurance is a HUGE placement barrier. No current bed offers. CM to follow Historical Progress Note : HD#10, elos-4, RRS-Moderate, Boost-3 ID following. IV Vanc and Zosyn and po doxy. Per nephrology, renal function stable. Wound care and mist therapy with PT. CM sent updated clinical/therapy updates to all [place] and [place] facilities. Lack of insurance is a huge placement barrier. CM called [facility]. Left message for admit coordinator. Patient's is a resident at [facility]. CM hopes that they will accept patient as well with pending Medicaid. CM to follow Maryjane Gonzalez Social Worker Lidar Scientist - 01/27/21 14:23:52 HD#6, elos-4, RRS-Moderate, Boost-3 [...] and insurance status. Maryjane Gonzalez Social Worker Lidar Scientist - 01/26/21 13:44:57 HD#6, ELOS-not recorded, RRS-Moderate, Boost-3 ID following and recommending culture right leg wound and possible vascular consult. On IV Vanc and Zosyn. 3L /.,wound care. PT/OT recommending rehab. Referrals sent via [facility] to [facility] and SNF. Patient pending Medicaid. Placement susanna be difficult due to no insurance. is a resident at [facility]. Referral sent there too. CM to follow -- Maryjane Gonzalez V Director Of Parks And Recreation Lidar Scientist - 01/23/21 12:17:40 HD#5, ELOS-not recorded, RRS-Moderate, Boost-3 Patient on 2L . IV Abx-Vanc and Zosyn. Wound care by PT. PT/OT recommending rehab. CM sent referrals via [employer]. Patient's is a resident at [facility]. Patient is self pay and has no health or presription coverage. Placement may be difficult due to pending Medicaid status. CM to follow patient's progess and SNF placement options. Maryjane Gonzalez V Director Of Parks And Recreation Lidar Scientist - 01/22/21 13:50:41 Maryjane Gonzalez V Director Of Parks And Recreation [facility] - 01/28/2021 14:57 EDT documented in this encounter Plan of Treatment Not on file documented as of this encounter Visit Diagnoses Not on filedocumented in this encounter Care Teams Respiratory Care Practitioner Relationship Specialty Start Date End Date Yuan Mccracken MD [address] [place] [phone] PCP - General Family Medicine 09/23/22 documented as of this encounter
--- OUTSIDE RECORDS SUMMARY | 2025-05-31 10:47 | XMS_ITS | Encounter Summary ---
Author Organization [employer] ([place], [place], [place], [place]) Address [address] [place] [address] Care Team Providers Care Patch Press Operator Name Role Phone Yuan Mccracken MD Primary Care Provider [phone] Encounter Details Date Type Department Care Team (Late st Contact Info) Description 01/16/2021 Transcribed Document [facility] [place] Family Medicine [address] [place] [address] ProviderPerry MD [address] [place] [address] [phone] Social History Tobacco Use Types Packs/Day Years [...] On: 01/16/2021 20:46 EDT by JENNY CHAN RN Discharge Process Patient Disposition : Admit/Observe Personal Belongings [...] - 01/16/2021 20:46 EDT Electronically signed by [facility] Conversion Faculty Administrator Cerner at 12/07/2022 6:15 PM CDT documented in this encounter Plan of Treatment Not on file documented as of this encounter Visit Diagnoses Not on filedocumented in this encounter Care Teams Patch Press Operator Relationship Specialty Start Date End Date Yuan Mccracken MD [address] [place] [phone] PCP - General Family Medicine 09/23/22 documented as of this encounter
--- OUTSIDE RECORDS SUMMARY | 2025-05-31 10:47 | XMS_ITS | Encounter Summary ---
Author Organization [employer] ([place], [place], [place], [place]) Address [address] [place] [address] Care Team Providers Care Home Energy Consultant Name Role Phone Yuan Mccracken MD Primary Care Provider [phone] Encounter Details Date Type Department Care Team (Late st Contact Info) Description 01/17/2021 Transcribed Document [facility] [place] [address] ProviderPerry MD [address] [place] [address] Social History Tobacco Use Types Packs/Day Years Used Date Smoking Tobacco: Never Assessed Comments Unknown Sex and Gender Information Value Date Recorded Sex Assigned at Not on file Legal Sex Female 12:32 PM CDT Gender Identity Not on file Sexual Orientation Not on file documented as of this encounter Miscellaneous Notes * Cerner Conversion Note - Perry ProviderMD - 01/17/2021 2:00 AM CDT Dental Chair Assembler Details Entered On: 01/17/2021 6:12 EDT Performed [...] - 01/17/2021 6:12 EDT Electronically signed by Carlotta, [facility] Conversion Chiropractic Practice Manager Cerner at 12/07/2022 6:29 PM CDT documented in this encounter Plan of Treatment Not on file documented as of this encounter Visit Diagnoses Not on filedocumented in this encounter Care Teams Home Energy Consultant Relationship Specialty Start Date End Date Yuan Mccracken MD [address] [place] [phone] PCP - General Family Medicine 09/23/22 documented as of this encounter
--- OUTSIDE RECORDS SUMMARY | 2025-05-31 10:47 | XMS_ITS | Encounter Summary ---
Author Organization [facility] Address [address] [place] [address] Care Team Providers Care Digital Cartographer Name Role Phone Yuan Mccracken MD Primary Care Provider [phone] Reason for Visit * Reason Onset Date Comments Med Refill 04/01/2025 Encounter Details Date Type Department Care Team (Late st Contact Info) Description 04/01/2025 Refill [facility] [address] [place] [address] Rae Arzate MA Med Refill Social History Tobacco Use Types Packs/Day Years Used Date Smoking Tobacco: Former Cigarettes 1.5 14 Passive Smoke Exposure: Never Smokeless Tobacco: Never Alcohol Use Standard Drinks/Week Comments Not Currently 0 (1 standard drink = 0.6 oz pur e alcohol) Abuse Screen Answer Date Recorded Unsafe at Home or Work/School Not on file Feels Threatened by Someone? Not on file 04/2023 Does Anyone Keep You from Co ntacting Others or Doint Things Outside the Home? Not on file 05/30/2023 Physical Sign of Abuse Present Not on file 1 Housing Stability Answer Date Recorded Current Living Arrangements Not on file 04/2023 Potentially Unsafe Housing Conditions Not on thad e 05/30/2023 Family and Community Support Answer Jay e Recorded Help with Day-to-Day Activities Not on file 05/30/2023 Lonely or Isolated Not on file 05/30/2023 Employment Answer Date Recorded Do you want help finding or keeping work or a rik b? Not on file 05/30/2023 Disabilities Answer Date Recorded Concentrating, Remembering, or Making Decisions Difficulty Not on file 05/30/2023 Doing Errands Independently Difficulty Not on fi le 05/30/2023 Education Answer Date Recorded Help with school or training? Not on file Preferred Language Not on file 05/30/2023 Comments Unknown Sex and Gender Information Value Date Recorded Sex Assigned at Not on file Legal Sex Female 1:37 PM EDT Gender Identity Not on file Sexual Orientation Not on file documented as of this encounter Plan of Treatment Not on file documented as of this encounter Visit Diagnoses Not on filedocumented in this encounter Care Teams Digital Cartographer Relationship Specialty Start Date End Date Yuan Mccracken MD [address] [place] [address] PCP - General Family Medicine 10/13/22 documented as of this encounter
--- OUTSIDE RECORDS SUMMARY | 2025-05-31 10:47 | XMS_ITS | Encounter Summary ---
Author Organization [employer] ([place], [place], [place], [place]) Address [address] [place] [address] Care Team Providers Care Quick Service Technician Name Role Phone Yuan Mccracken MD Primary Care Provider [phone] Encounter Details Date Type Department Care Team (Late st Contact Info) Description 01/27/2021 Transcribed Document [facility] [place] [address] [place] [address] ProviderPerry MD [address] [place] [address] [phone] Social History Tobacco Use Types Packs/Day Years [...] RT_Q6H, PRN: Wheezing Eliquis: 5 mg, Oral, [id number] Lac-Hydrin 12% topical lotion: 1 Application, Topical, [...] 27 20:37) 74 (JAN 27 08:36) 78 (TOM 08 20:37) Mon HR 73 (JAN 27 17:23) 61 (JAN 26 23:56) 73 (JAN 27 17:23) Resp Rate 17 (JAN 27 17:23) 16 (JAN 08 08:46) 18 (JAN 26 21:32) SBP 104 (JAN 27 17:23) 104 (JAN 27 17:23) 129 (JAN 08 13:00) DBP 62 (JAN 27 17:23) 62 (JAN 27 17:23) 79 (JAN 27 13:00) MAP 73 (JAN 27 17:23) 73 (JAN 27 17:23) 93 (JAN 27 13:00) SpO2 96 (JAN 27 19:36) 95 (JAN 27 05:29) 100 (JAN 26 21:32) General: Alert [...] 08) H 11.6 (JAN 07) H 12.4 (TOM 06) H 13.0 [...] (TOM 06) 109 (TOM 05) CO2 23 (JAN 08) 24 (JAN 07) 21 (JAN 06) 24 (JAN 05) BUN 22 (JAN 08) 22 (JAN 07) H 23 (JAN 06) H 26 (JAN 05) Cr H 1.30 (TOM 08) H 1.40 (TOM 07) H 1.30 (JAN 06) H 1.40 [...] (JAN 08) 21 (JAN 06) 28 (JAN 24) 36 (JANUARY 19) ALK P 56 (JAN [...] consult 01/23 -- probiotic Electronically signed by [facility] Conversion Log Tumbler Cerner at 12/07/2022 6:09 PM CDT documented in this encounter Plan of Treatment Not on file documented as of this encounter Visit Diagnoses Not on filedocumented in this encounter Care Teams Quick Service Technician Relationship Specialty Start Date End Date Yuan Mccracken MD [address] [place] [phone] PCP - General Family Medicine 09/23/22 documented as of this encounter
--- OUTSIDE RECORDS SUMMARY | 2025-05-31 10:47 | XMS_ITS | Encounter Summary ---
Author Organization [employer] ([place], [place], [place], [place]) Address [address] [place] [address] Care Team Providers Care Industrial Maintenance Instructor Name Role Phone Yuan Mccracken MD Primary Care Provider [phone] Encounter Details Date Type Department Care Team (Late st Contact Info) Description 01/27/2021 Transcribed Document [facility] [place] Family Medicine [address] [place] [address] ProviderPerry MD [address] [place] [phone] Social History Tobacco Use Types Packs/Day Years [...] 01/27/2021 14:20 EDT by Maryjane Gonzalez V, Medical Physics Professor Cage Unloader Care Management Progress Note Discharge Arrangements : [...] Attend Multidisciplinary Rounds? : Yes Maryjane Gonzalez V Medical Physics Professor Cage Unloader - 01/27/2021 14:20 EDT Narrative Progress Note Narrative Progress Note : HD#10, elos-4, RRS-Moderate, Boost-3 ID following. IV Vanc and Zosyn and po doxy. Per nephrology, renal function stable. Wound care and mist therapy with PT. CM sent updated clinical/therapy updates to all [place] and [place], [place] facilities. Lack of insurance is a huge placement barrier. CM called [facility]. Left message for admit coordinator. Patient's is a resident at [facility]. CM hopes that they will accept patient [...] pt's progress and insurance status. Maryjane Gonzalez V Medical Physics Professor Cage Unloader - 01/26/21 13:44:57 HD#6, ELOS-not recorded, RRS-Moderate, Boost-3 ID following and recommending culture right leg wound and possible vascular consult. On IV Vanc and Zosyn. 3L 02/NC.,wound care. PT/OT recommending rehab. Referrals sent via [facility] to [facility] and SNF. Patient pending Medicaid. Placement susanna be difficult due to no insurance. is a resident at [facility]. Referral sent there too. CM to follow -- Maryjane Gonzalez Social Worker Cage Unloader - 01/23/21 12:17:40 HD#5, ELOS-not recorded, RRS-Moderate, Boost-3 Patient on 2L 02/NC. IV Abx-Vanc and Zosyn. Wound care by PT. PT/OT recommending rehab. CM sent referrals via [employer]. Patient's is a resident at [facility]. Patient is self pay and has no health or presription coverage. Placement may be difficult due to pending Medicaid status. CM to follow patient's progess and SNF placement options. Maryjane Gonzalez V Medical Physics Professor Cage Unloader - 01/22/21 13:50:41 Maryjane Gonzalez V Medical Physics Professor Cage Unloader - 01/27/2021 14:20 EDT Electronically signed by Gayle [facility]re Conversion Accounts Receivable Associate Cerner at 12/07/2022 6:22 PM CDT documented in this encounter Plan of Treatment Not on file documented as of this encounter Visit Diagnoses Not on filedocumented in this encounter Care Teams Industrial Maintenance Instructor Relationship Specialty Start Date End Date Yuan Mccracken MD [address] [place] [phone] PCP - General Family Medicine 09/23/22 documented as of this encounter
--- OUTSIDE RECORDS SUMMARY | 2025-05-31 10:47 | XMS_ITS | Encounter Summary ---
Author Organization [employer] ([place], [place], [place], [place]) Address [address] [place] [address] Care Team Providers Care High Voltage Electrician Name Role Phone Yuan Mccracken MD Primary Care Provider [phone] Encounter Details Date Type Department Care Team (Late st Contact Info) Description 01/17/2021 Transcribed Document [facility] [place] Family Medicine [address] [place] [address] ProviderPerry MD [address] [place] [address] Social History Tobacco Use Types Packs/Day Years Used Date Smoking Tobacco: Never Assessed Comments Unknown Sex and Gender Information Value Date Recorded Sex Assigned at Not on file Legal Sex Female 12:32 PM CDT Gender Identity Not on file Sexual Orientation Not on file documented as of this encounter Miscellaneous Notes * [employer]ner Conversion Note - Perry ProviderMD - 01/17/2021 5:00 AM CDT Chart Check [...] filedocumented in this encounter Care Teams High Voltage Electrician Relationship Specialty Start Date End Date Yuan Mccracken MD [address] [place] [phone] PCP - General Family Medicine 09/23/22 documented as of this encounter
--- OUTSIDE RECORDS SUMMARY | 2025-05-31 10:47 | XMS_ITS | Encounter Summary ---
Author Organization [employer] ([place], [place], [place], [place]) Address [address] [place] [address] Care Team Providers Care Pharmacy Intake Coordinator Name Role Phone Yuan Mccracken MD Primary Care Provider [phone] Encounter Details Date Type Department Care Team (Late st Contact Info) Description 01/16/2021 Transcribed Document [facility] [place] Family [place] [address] [place] [address] ProviderPerry MD [address] [place], [place] [phone] Social History Tobacco Use Types Packs/Day Years [...] ProviderMD - 01/16/2021 5:30 PM CDT ED Assessment Entered On: 01/16/2021 18:23 EDT Performed On: 01/16/2021 18:20 EDT by Brittany Matos CARE PROVIDER Quick Look Assessment Level of Consciousness : Alert, Awake Affect/Behavior : Anxious Skin Temperature : Warm Skin Description : Normal for ethnicity Brittany Matos RN - 01/16/2021 18:20 EDT ED General-Functional Assess Information Obtained From : Patient Communication Barrier : None Primary Language : Honduran Any Spiritual/Cultural Needs or Requests : No [...] Brittany Matos RN - 01/16/2021 18:20 EDT Neurologic ASMT, ED Neurologic Assessment WDL : WDL Brittany Matos RN - 01/16/2021 18:20 EDT documented in this encounter Plan of Treatment Not on file documented as of this encounter Visit Diagnoses Not on filedocumented in this encounter Care Teams Pharmacy Intake Coordinator Relationship Specialty Start Date End Date Yuan Mccracken MD [address] [place] [phone] PCP - General Family Medicine 09/23/22 documented as of this encounter
--- OUTSIDE RECORDS SUMMARY | 2025-05-31 10:47 | XMS_ITS | Encounter Summary ---
Author Organization [employer] ([place], [place], [place], [place]) Address [address] [place] [address] Care Team Providers Care Principal Product Manager Name Role Phone Yuan Mccracken MD Primary Care Provider [phone] Encounter Details Date Type Department Care Team (Late st Contact Info) Description 01/21/2021 Transcribed Document [facility] [place] [address] [place] [address] ProviderPerry MD [address] [place] [address] Social History Tobacco Use Types Packs/Day [...] FRANCISCO MACEDO, PT - 01/26/2021 15:49 EDT Detention Goals Mobility/Bed Mobility LTG PT Grid Goal [...] on filedocumented in this encounter Care Teams Principal Product Manager Relationship Specialty Start Date End Date Yuan Mccracken MD [address] [place] [phone] PCP - General Family Medicine 09/23/22 documented as of this encounter
--- OUTSIDE RECORDS SUMMARY | 2025-05-31 10:47 | XMS_ITS | Encounter Summary ---
Author Organization [employer] ([place], [place], [place], [place]) Address [address] [place] [address] Care Team Providers Care Extract Operator Name Role Phone Yuan Mccracken MD Primary Care Provider [phone] Encounter Details Date Type Department Care Team (Late st Contact Info) Description 01/16/2021 Transcribed Document [facility] [place] Family [place] [facility] [place] [address] ProviderPerry MD [address], [place] [id number] Social History Tobacco Use Types Packs/Day Years Used Date Smoking Tobacco: Never Assessed Comments Unknown Sex and Gender Information Value Date Recorded Sex Assigned at Not on file Legal Sex Female 12:32 PM CDT Gender Identity Not on file Sexual Orientation Not on file documented as of this encounter Miscellaneous Notes * Cerner Conversion Note - Perry ProviderMD - 01/16/2021 8:26 PM CDT Admission History, [...] #1 Emergency Contact #1 Relationship : Husbands Neice Emergency Contact #2 : Andreina Dunlapock Emergency Contact #2 Emergency Contact #2 Relationship : Sister Chief Complaint : Via EMS for SOA x 2-3 weeks, increased 2-3 days. Pt denies medical treatment for years. Rec'd solumedrol 125mg IM and xopenex neb en route. Reports mild chest discomfort on arrival. Patrick leg ulcers Information Obtained From : Patient Primary Language : Greenlandic Communication Barrier : None Grain Wafer Machine Operator Needed : Annamaria Roberts RN - 01/16/2021 [...] Scale Risk Level : 25-45 Medium Risk [place] Fall Interventions : Adequate lighting, Assistive devices [...] Source : Stated Height Entry Format : [place] Height, Feet : 5 ft(Converted to: 152 [...] Body Mass Index : 44.4 kg/m2 (>HHI) [place] Body Weight : 54 kg Annamaria Leyva [...] Annamaria Leyva RN - 01/16/2021 20:59 EDT [place] Suicide Severity Rating Scale (C-SSRS) CSSRS Past [...] - 01/16/2021 20:59 EDT Electronically signed by Carlotta, [facility] Conversion Inspector Fuel Hose Cerner at 12/07/2022 6:10 PM CDT documented in this encounter Plan of Treatment Not on file documented as of this encounter Visit Diagnoses Not on filedocumented in this encounter Care Teams Extract Operator Relationship Specialty Start Date End Date Yuan Mccracken MD [address] [place] [phone] PCP - General Family Medicine 09/23/22 documented as of this encounter
--- OUTSIDE RECORDS SUMMARY | 2025-05-31 10:47 | XMS_ITS | Encounter Summary ---
Author Organization [employer] ([place], [place], [place], [place]) Address [address] [place] [address] Care Team Providers Care State Director Name Role Phone Yuan Mccracken MD Primary Care Provider [phone] Encounter Details Date Type Department Care Team (Late st Contact Info) Description 01/27/2021 Transcribed Document [facility] [place] [address] ProviderPerry MD [address] [place] [address] Social History Tobacco Use Types Packs/Day Years Used Date Smoking Tobacco: Never Assessed Comments Unknown Sex and Gender Information Value Date Recorded Sex Assigned at Not on file Legal Sex Female 12:32 PM CDT Gender Identity Not on file Sexual Orientation Not on file documented as of this encounter Miscellaneous Notes * Cerner Conversion Note - Perry ProviderMD - 01/27/2021 4:13 PM CDT Discharge Summary, PT Entered On: 01/27/2021 16:13 EDT Performed On: 01/27/2021 16:13 EDT by CESIA WILSON, PT Discharge Summary Discharge Summary Comment, PT : As of 01/27 noted 1.0 x 0.5 small pink blanchable sacral wound; no cont acute skilled PTx services for MIST tx at this time; pt met 1/1 STG and 1/2 LTG CESIA WILSON, PT [...] WILSON, CESIA, PT - 01/27/2021 16:14 EDT Penitentiary Goals Mobility/Bed Mobility LTG PT Grid Goal [...] - 01/27/2021 16:14 EDT Electronically signed by [facility], [facility] Conversion Spa Assistant Manager Cerner at 12/07/2022 6:14 PM CDT documented in this encounter Plan of Treatment Not on file documented as of this encounter Visit Diagnoses Not on filedocumented in this encounter Care Teams State Director Relationship Specialty Start Date End Date Yuan Mccracken MD [address] [place] [phone] PCP - General Family Medicine 09/23/22 documented as of this encounter
--- OUTSIDE RECORDS SUMMARY | 2025-05-31 10:47 | XMS_ITS | Encounter Summary ---
Author Organization [employer] ([place], [place], [place], [place]) Address [address] [place] [address] Care Team Providers Care Senior Java J2Ee Developer Name Role Phone Yuan Mccracken MD Primary Care Provider [phone] Encounter Details Date Type Department Care Team (Late st Contact Info) Description 01/21/2021 Transcribed Document [facility] [place] [address] ProviderPerry MD [address] [place] [address] Social History Tobacco Use Types Packs/Day [...] (TOM 02 11:00) Resp Rate H 31 (TOM 15:00) H 27 (TOM 02 04:00) H 51 (TOM 02 02:00) SBP 115 (TOM 02 15:00) 107 (TOM 02 13:00) H 152 (JAN 21 11:00) DBP 66 (JAN 21 15:00) L 59 (JAN 20 21:00) 84 (TOM 02 00:00) MAP 82 (TOM 02 15:00) 81 (TOM 02 14:00) 109 (TOM 02 00:00) SpO2 98 (JAN 21 15:00) L 92 (JAN 20 16:00) 99 (JAN 21 12:00) Labs: Labs (Last four charted values) WBC H 20.0 (JAN 02) H 16.5 (JAN 20) H 14.2 (JAN 20) H 13.0 (JANUARY 19) HB L 8.7 (TOM 02) L 9.2 (JAN 20) L 8.7 (JAN 20) L 8.4 (JANUARY [...] 18) CO2 29 (JAN 02) 26 (JAN 01) 29 (JANUARY 19) 29 (JANUARY 18) BUN H 34 (JAN 02) H 48 (JAN 01) H 70 (JANUARY 19) C 89 (JANUARY 18) Cr H 1.40 (JAN 02) H 1.60 (JAN 01) H 1.90 (JANUARY 19) H 2.50 (JANUARY [...] monitor for changes. Rx will follow, Kiko Wang PharmD,BCPS,BCCCP #[id number] Electronically signed by Carlotta [facility] Conversion Assembling Machine Operator Cerner at 12/07/2022 6:30 PM CDT documented in this encounter Plan of Treatment Not on file documented as of this encounter Visit Diagnoses Not on filedocumented in this encounter Care Teams Senior Java J2Ee Developer Relationship Specialty Start Date End Date Yuan Mccracken MD [address] [place] [phone] PCP - General Family Medicine 09/23/22 documented as of this encounter
--- OUTSIDE RECORDS SUMMARY | 2025-05-31 10:47 | XMS_ITS | Encounter Summary ---
Author Organization [employer] ([place], [place], [place], [place]) Address [address] [place] [address] Care Team Providers Care Oil Boiler Name Role Phone Yuan Mccracken MD Primary Care Provider [phone] Encounter Details Date Type Department Care Team (Late st Contact Info) Description 01/22/2021 Transcribed Document [facility] [place] [address] [place] [address] ProviderPerry MD [address] [place] [address] Social History Tobacco Use Types Packs/Day [...] PT : BLE compression wrap eval CESIA WILSON, PT - 01/23/2021 16:51 EDT General Status [...] currently due to pt recently discharged from [facility] to a SNF Persons Assisting Patient [...] demonstration, Needs reinforcement CESIA WILSON, PT - 01/23/2021 16:51 EDT Indication Assesessment, PT Physical Therapy Indicated : Yes PT Problem List : Impaired, wound healing WILSONCESIA, PT - 01/23/2021 16:51 EDT Plan of [...] goals for MIST and compression wraps below WILSONCESIA, PT - 01/23/2021 16:51 EDT WILSONEDWINCESIA, PT - 01/23/2021 16:51 EDT Ambulation STG Grid Goal #1 Device : Walker, front wheel Distance : 50 ft Assist : Assist, minimal Date to Meet : 01/26/2021 EDT Goal Status : Intial Goal WILSONCESIA, PT - 01/23/2021 16:51 EDT Other PT STG Grid Goal #1 Goal #2 Goal : Open area to measure 1.5cmX0.8cm BLE malleoli will be < 29.0cm Date to Meet : 01/28/2021 EDT 01/28/2021 EDT Goal Status : Progressing, continue Initial goal WILSONCESIA, PT - 01/23/2021 16:51 EDT WILSONCESIA, PT - 01/23/2021 16:51 EDT Detention Goals Mobility/Bed Mobility LTG PT [...] on filedocumented in this encounter Care Teams Oil Boiler Relationship Specialty Start Date End Date Yuan Mccracken MD [address] [place] [phone] PCP - General Family Medicine 09/23/22 documented as of this encounter
--- OUTSIDE RECORDS SUMMARY | 2025-05-31 10:47 | XMS_ITS | Encounter Summary ---
Author Organization [employer] ([place], [place], [place], [place]) Address [address] [place] [address] Care Team Providers Care Music Executive Name Role Phone Yuan Mccracken MD Primary Care Provider [phone] Encounter Details Date Type Department Care Team (Late st Contact Info) Description 01/27/2021 Transcribed Document [facility] [place] [facility] [place] [address] ProviderPerry MD [address] [place] [address] Social History Tobacco Use Types Packs/Day Years Used Date Smoking Tobacco: Never Assessed Comments Unknown Sex and Gender Information Value Date Recorded Sex Assigned at Not on file Legal Sex Female 12:32 PM CDT Gender Identity Not on file Sexual Orientation Not on file documented as of this encounter Miscellaneous Notes * Cerner Conversion Note - Perry ProviderMD - 01/27/2021 8:41 AM CDT UM Authorization Entered On: 01/27/2021 8:41 EDT Performed On: 01/27/2021 8:41 EDT by DWIGHT PERALTA, RN-Utilization Review Primary Insurance Authorization Authorization and Policy Numbers : Insurance 1 Health Plan: MEDICAID PENDING Policy Number: [id number] Authorization Number: Insurance Primary Name : MEDICAID PENDING Policy Number: [id number] Authorized Service Begin Date-Primary : 01/16/2021 EDT Authorization Comments-Primary : MEDICAID PENDING Historical Authorization Comments-Primary : Comment 1: MEDICAID PENDING (DWIGHT PERALTA, RN-Utilization Review 01/26/2021 08:45) Comment 2: MEDICAID PENDING (DWIGHT PERALTA, RN-Utilization Review 01/23/2021 09:42) Comment 3: SELF PAY (DWGIHT PERALTA, RN-Utilization Review 01/22/2021 08:29) Comment 4: SELF PAY (DIWGHT PERALTA, RN-Utilization Review 01/21/2021 08:19) Comment 5: Self pay at the time of review (CARMEN MARLOW RN 01/20/2021 13:51) DWIGHT PERALTA, RN-Utilization Review - 01/27/2021 8:41 EDT Electronically signed by Carlotta [facility] Conversion Platen Press Operator Apprentice Cerner at 12/07/2022 6:05 PM CDT documented in this encounter Plan of Treatment Not on file documented as of this encounter Visit Diagnoses Not on filedocumented in this encounter Care Teams Music Executive Relationship Specialty Start Date End Date Yuan Mccracken MD [address] [place] [phone] PCP - General Family Medicine 09/23/22 documented as of this encounter
--- OUTSIDE RECORDS SUMMARY | 2025-05-31 10:47 | XMS_ITS | Encounter Summary ---
Author Organization [employer] ([place], [place], [place], [place]) Address [address] [place] [address] Care Team Providers Care Foreign Language Instructor Name Role Phone Yuan Mccracken MD Primary Care Provider [phone] Encounter Details Date Type Department Care Team (Late st Contact Info) Description 01/17/2021 Transcribed Document [facility] [place] Family Medicine [facility] [address] ProviderPerry MD [address] [place] [address] Social History Tobacco Use Types Packs/Day Years Used Date Smoking Tobacco: Never Assessed Comments Unknown Sex and Gender Information Value Date Recorded Sex Assigned at Not on file Legal Sex Female 12:32 PM CDT Gender Identity Not on file Sexual Orientation Not on file documented as of this encounter Miscellaneous Notes * Cerner Conversion Note - Prery Nunes MD - 01/17/2021 12:36 PM CDT Patient: CHANI VELASQUEZ Age: 60 years Sex: Female : 1960 Associated Diagnoses: None Author: MEG CARRASCO [facility] Subjective Feeling a little better today. Objective [...] on filedocumented in this encounter Care Teams Foreign Language Instructor Relationship Specialty Start Date End Date Yuan Mccracken MD [address] [place] [phone] PCP - General Family Medicine 09/23/22 documented as of this encounter
--- OUTSIDE RECORDS SUMMARY | 2025-05-31 10:47 | XMS_ITS | Encounter Summary ---
Author Organization [employer] ([place], [place], [place], [place]) Address [address] [place] [address] Care Team Providers Care Commissioned Fire Officer Name Role Phone Yuan Mccracken MD Primary Care Provider [phone] Encounter Details Date Type Department Care Team (Late st Contact Info) Description 01/21/2021 Transcribed Document [facility] [place] [facility] [place] [address] ProviderPerry MD [address] [place] [id number] Social History Tobacco Use Types Packs/Day Years [...] - Medical Apixaban 5 mg, Oral, Tab, [id number], Routine, Start 01/21/21 10:00:00 EDT, 01/21/21 9:43:00 [...] PRN Eliquis, 5 mg= 1 Tab, Oral, [id number] Lac-Hydrin 12% topical lotion, 1 Application, Topical, BID magnesium sulfate, 2 Gram= 50 mL, IV Piggyback, Daily, PRN magnesium sulfate, 2 Gram= 50 mL, IV Piggyback, Q2H, PRN metoprolol tartrate, 50 mg= 1 Tab, Oral, BID MiraLax, 17 Gram= 1 Packet, Oral, Daily, PRN Mucinex, 600 mg= 1 Tab, Oral, BID, PRN nystatin, [id number] Units= 5 mL, Swish and Swallow , [...] ALYC # 2 K/uL 01/21/2021 03:04 EDT [place] Percent Man 4 % 01/21/2021 03:04 EDT [place] Percent Man 2 % 01/21/2021 03:04 EDT [place] Percent Man 2 % (High) 01/21/2021 03:04 EDT RBC Morphology Normal 01/21/2021 03:[address] Estimate Adequate 01/21/2021 03:04 EDT Slide Review Add Diff 01/21/2021 03:04 EDT PTT Heparin 75.6 Second(s) (Critical) 01/21/2021 03:04 EDT PTT Heparin 65.3 Second(s) 01/20/2021 22:36 EDT PTT Heparin 50.4 Second(s) 01/20/2021 16:31 EDT Electronically signed by [facility], [facility] Conversion Cross Country/Track And Field Coach Cerner at 12/07/2022 6:27 PM CDT documented in this encounter Plan of Treatment Not on file documented as of this encounter Visit Diagnoses Not on filedocumented in this encounter Care Teams Commissioned Fire Officer Relationship Specialty Start Date End Date Yuan Mccracken MD [address] [place] [phone] PCP - General Family Medicine 09/23/22 documented as of this encounter
--- OUTSIDE RECORDS SUMMARY | 2025-05-31 10:47 | XMS_ITS | Encounter Summary ---
Author Organization [employer] ([place], [place], [place], [place]) Address [address] [place] [address] Care Team Providers Care Electronic Funds Transfer Coordinator Name Role Phone Yuan Mccracken MD Primary Care Provider [phone] Encounter Details Date Type Department Care Team (Late st Contact Info) Description 01/21/2021 Transcribed Document [facility] [place] Family Medicine [address] [place] [address] ProviderPerry MD [address] [place] [phone] Social History Tobacco Use Types Packs/Day Years Used Date Smoking Tobacco: Never Assessed Comments Unknown Sex and Gender Information Value Date Recorded Sex Assigned at Not on file Legal Sex Female 12:32 PM CDT Gender Identity Not on file Sexual Orientation Not on file documented as of this encounter Miscellaneous Notes * Cerner Conversion Note - Perry ProviderMD - 01/21/2021 8:18 AM CDT UM Authorization [...] 13:51) DWIGHT PERALTA RN-Utilization Review - 01/21/2021 8:18 EDT documented in this encounter Plan of Treatment Not on file documented as of this encounter Visit Diagnoses Not on filedocumented in this encounter Care Teams Electronic Funds Transfer Coordinator Relationship Specialty Start Date End Date Yuan Mccracken MD [address] [place] [phone] PCP - General Family Medicine 09/23/22 documented as of this encounter
--- OUTSIDE RECORDS SUMMARY | 2025-05-31 10:47 | XMS_ITS | Encounter Summary ---
Author Organization [facility] Address [address] [place] [address] Care Team Providers Care Knotting Machine Operator Portable Name Role Phone Yuan Mccracken MD Primary Care Provider [phone] Reason for Visit * Reason Comments Med Refill Encounter Details Date Type Department Care Team (Late st Contact Info) Description 03/31/2025 Refill [facility] [address] [place] [address] Pati Hyatt APRN [address] [place] [address] Med Refill Social History Tobacco Use Types [...] as of this encounter Miscellaneous Notes * Telephone Encounter - Inge Alexandre MA - 04/01/2025 8:40 AM EDT Spoke with patient as her insurance is not accepted with us to see if she has established care withanother provider. She has established with another provider and does not need any future refills with us documented in this encounter Plan of Treatment Not on file documented as of this encounter Visit Diagnoses Not on filedocumented in this encounter Care Teams Knotting Machine Operator Portable Relationship Specialty Start Date End Date Yuan Mccracken MD [address] [place] [address] PCP - General Family Medicine 10/13/22 documented as of this encounter
--- OUTSIDE RECORDS SUMMARY | 2025-05-31 10:47 | XMS_ITS | Encounter Summary ---
Author Organization [employer] ([place], [place], [place], [place]) Address [address] [address] Care Team Providers Care Orthodontic Lab Technician Name Role Phone Yuan Mccracken MD Primary Care Provider [phone] Encounter Details Date Type Department Care Team (Late st Contact Info) Description 01/17/2021 Transcribed Document [facility] [place] [facility] [place] [address] ProviderPerry MD [address] [place] [address] Social History Tobacco Use Types Packs/Day Years Used Date Smoking Tobacco: Never Assessed Comments Unknown Sex and Gender Information Value Date Recorded Sex Assigned at Not on file Legal Sex Female 12:32 PM CDT Gender Identity Not on file Sexual Orientation Not on file documented as of this encounter Miscellaneous Notes * Cerner Conversion Note - Historical ProviderMD - 01/17/2021 2:08 PM CDT Attempt to Treat, PT Entered On: 01/17/2021 14:45 EDT Performed On: 01/17/2021 14:08 EDT by FRANCISCO MACEDO PT Attempt to Treat Unable to Treat Due To : Patient on hold Inability to Treat Comment : pt having respiratory issues and nsg agreed to hold PTx eval at this time. will plan to f/u tomorrow. FRANCISCO MACEDO PT - 01/17/2021 14:44 EDT documented in this encounter Plan of Treatment Not on file documented as of this encounter Visit Diagnoses Not on filedocumented in this encounter Care Teams Orthodontic Lab Technician Relationship Specialty Start Date End Date Yuan Mccracken MD [address] [place] [phone] PCP - General Family Medicine 09/23/22 documented as of this encounter
--- OUTSIDE RECORDS SUMMARY | 2025-05-31 10:47 | XMS_ITS | Encounter Summary ---
Author Organization [employer] ([place], [place], [place], [place]) Address [address] [place] [address] Care Team Providers Care It Support Manager Name Role Phone Yuan Mccracken MD Primary Care Provider Encounter Details Date Type Department Care Team (Late st Contact Info) Description 01/21/2021 Transcribed Document [facility] [place] [address] [place] [address] ProviderPerry MD [address] [place] [phone] Social History Tobacco Use Types Packs/Day Years [...] to Bed Program: : Discharge to facility [facility]RAEN [facility]TON PHARMACIST-MEDICATION RECON - 01/25/2021 8:48 EDT documented in this encounter Plan of Treatment Not on file documented as of this encounter Visit Diagnoses Not on filedocumented in this encounter Care Teams It Support Manager Relationship Specialty Start Date End Date Yuan Mccracken MD [facility] [place] [phone] PCP - General Family Medicine 09/23/22 documented as of this encounter
--- OUTSIDE RECORDS SUMMARY | 2025-05-31 10:47 | XMS_ITS | Encounter Summary ---
Author Organization [employer] ([place], [place], [place], [place]) Address [address] [place] [address] Care Team Providers Care Dye House Vat Worker Name Role Phone Yuan Mccracken MD Primary Care Provider [phone] Encounter Details Date Type Department Care Team (Late st Contact Info) Description 01/21/2021 Transcribed Document [facility] [place] [facility] [place] [address] ProviderPerry MD [address] [place] [address] Social History Tobacco Use Types Packs/Day Years Used Date Smoking Tobacco: Never Assessed Comments Unknown Sex and Gender Information Value Date Recorded Sex Assigned at Not on file Legal Sex Female 12:32 PM CDT Gender Identity Not on file Sexual Orientation Not on file documented as of this encounter Miscellaneous Notes * Cerner Conversion Note - Perry ProviderMD - 01/21/2021 3:03 PM CDT Patient: CHANI [...] - Medical Apixaban 5 mg, Oral, Tab, [id number], Routine, Start 01/21/21 10:00:00 EDT, 01/21/21 9:43:00 [...] PRN Eliquis, 5 mg= 1 Tab, Oral, [id number] Lac-Hydrin 12% topical lotion, 1 Application, Topical, BID magnesium sulfate, 2 Gram= 50 mL, IV Piggyback, Daily, PRN magnesium sulfate, 2 Gram= 50 mL, IV Piggyback, Q2H, PRN metoprolol tartrate, 50 mg= 1 Tab, Oral, BID MiraLax, 17 Gram= 1 Packet, Oral, Daily, PRN Mucinex, 600 mg= 1 Tab, Oral, BID, PRN nystatin, [id number] Units= 5 mL, Swish and Swallow , [...] ALYC # 2 K/uL 01/21/2021 03:04 EDT [place] Percent Man 4 % 01/21/2021 03:04 EDT [place] Percent Man 2 % 01/21/2021 03:04 EDT [place] Percent Man 2 % (High) 01/21/2021 03:04 EDT RBC Morphology Normal 01/21/2021 03:[address] Estimate Adequate 01/21/2021 03:04 EDT Slide Review Add Diff 01/21/2021 03:04 EDT PTT Heparin 75.6 Second(s) (Critical) 01/21/2021 03:04 EDT PTT Heparin 65.3 Second(s) 01/20/2021 22:36 EDT PTT Heparin 50.4 Second(s) 01/20/2021 16:31 EDT Electronically signed by [facility], [facility] Conversion Lathe Operator Cerner at 12/07/2022 6:27 PM CDT documented in this encounter Plan of Treatment Not on file documented as of this encounter Visit Diagnoses Not on filedocumented in this encounter Care Teams Dye House Vat Worker Relationship Specialty Start Date End Date Yuan Mccracken MD [address] [place] [phone] PCP - General Family Medicine 09/23/22 documented as of this encounter
--- OUTSIDE RECORDS SUMMARY | 2025-05-31 10:47 | XMS_ITS | Clinical Summary ---
Author Organization [facility] Address [address] [place] [address] Care Team Providers Care Cut Off Sawyer Name Role Phone Yuan Mccracken MD Primary Care Provider [phone] Allergies No known active allergies Medications ipratropium-alb uterol (COMBIVENT RESPIMAT) 20-100 MCG/ACT inhaler Inhale 1 puff 4 (Four) Times a Day As Needed for Wheezing. Active acetaminophen (TYLENOL) 325 MG tablet Take 2 tablets by mouth Every 4 (Four) Hours As Needed for Mild Pain. Active aspirin 81 MG chewable tablet Chew 1 tablet Daily. Active Stiolto Respimat 2.5-2.5 MCG/ACT aerosol solution inhaler Inhale 2 puffs Daily. 07/23/2023 Active potassium chloride (K-DUR,KLOR-CON ) 20 MEQ CR tablet Take 1 tablet by mouth Daily. 90 tablet 1 08/02/2023 Active furosemide (LASIX) 40 MG tablet Take 1 tablet by mouth once daily 90 tablet 11/27/2024 Active metoprolol succinate XL (TOPROL-XL) 25 MG 24 hr tablet TAKE 1 TABLET BY MOUTH ONCE DAILY IN THE EVENING 30 tablet 01/10/2025 Active atorvastatin (LIPITOR) 40 MG tablet TAKE 1 TABLET BY MOUTH ONCE DAILY AT NIGHT 30 tablet 01/10/2025 Active ranolazine (RANEXA) 500 MG 12 hr tablet TAKE 1 TABLET BY MOUTH EVERY 12 HOURS 60 tablet 01/10/2025 Active valsartan (DIOVAN) 40 MG tablet Take 1 tablet by mouth once daily 30 tablet 01/10/2025 Active Active Problems Problem Noted Date Diagnosed Date COPD (chronic obstructive pulmonary disease) 04/2023 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 40-50% stenosis in the circumflex artery. 40% stenosis in the proximal LAD. No stenting. - Continue medical management (aspirin, atorvastatin, metoprolol and Ranexa) - Scheduled with PCP next month for routine labs, we will need to review lipid panel. LDL goal <70. Assessment & Plan (10/13/2022 3:15 PM EST): Abnormal stress test followed by abnormal coronary CTA followed by September 23, [address] Alhaji Gonzalez. RCA with total occlusion, circumflex mild to moderate 40 to 50% narrowing, LAD with 40% narrowing. No surgical interventions at that time. Patient is on medical therapy. Stable. Denies chest pain. Chronic chest pain with high risk for CAD 2022 Assessment & Plan (10/13/2022 3:15 PM EST): Known coronary artery disease. On Ranexa. Dr. Gonzalez suggest cardiac rehab and patient would like to do this. FERCHO (obstructive sleep apnea) 10/13/2022 Assessment & Plan (02/02/2024 3:45 PM EDT): She is doing well on PAP therapy with good control and compliance. Download reviewed and interpreted today. Compliance is 100%, AHI 0.2. She is benefiting from PAP therapy and we will continue at current settings. Assessment & Plan (10/13/2022 3:15 PM EST): Patient is benefiting from PAP therapy. We will plan to continue. Pure hypercholesterolemia, unspecified Dyspnea, unspecified Edema Hypertension Assessment & Plan (02/02/2024 3:46 PM EDT): Hypertension is stable and controlled Continue current treatment regimen. Weight loss. Regular aerobic exercise. Blood pressure will be reassessed in 6 months. Hypokalemia Hypoxemia Morbid (severe) obesity due to excess calories Obstructive and reflux uropathy, unspecified Peripheral vascular disease, unspecified Personal history of urinary calculi Resolved Problems Problem Noted Date Diagnosed Date Resolved Date Cellulitis, unspecified 04/2023 Hx of septic arthritis 01/28 Hydronephrosis with renal an d ureteral calculous obstruction 01/28/2023 Encounters Date Type Department Care Team Description 04/01/2025 Refill [facility] [address] [place] [address] Rae Arzate MA Med Refill 03/31/2025 Refill [facility] [address] [place] [address] Pati Hyatt APRN Med Refill from Last 3 Months Family History Medical History Relation Name Comments Cancer Brother 3 Cancer Father Heart attack Mother Coronary artery disease Other FAM HX Heart disease Other FAM HX COPD Sister 3 Cancer Sister 3 COPD Sister 4 Cancer Sister 4 COPD Sister 5 Cancer Sister 5 COPD Sister 6 Cancer Sister 6 COPD Sister 7 Cancer Sister 7 COPD Sister 8 Cancer Sister 8 COPD Sister 9 Cancer Sister 9 Relation Name Status Comments Brother 1 Alive Brother 2 Alive Brother 3 Father (Age 56) Mother (Age 56) Other FAM HX Sister 1 Alive Sister 2 Alive Sister 3 Sister 4 Sister 5 Sister 6 Sister 7 Sister 8 Sister 9 Social History Tobacco Use Types Packs/Day Years [...] Sign Reading Time Taken Comments Blood Pressure 136/70 02/01/2024 2:02 PM EDT Pulse 77 02/01/2024 2:02 PM EDT Temperature 36.5 C (97.7 F) 06/15/2021 2:14 PM EDT Respiratory Rate 18 06/15/2021 2:14 PM EDT Oxygen Saturation 96% 02/01/2024 2:02 PM EDT Inhaled Oxygen Concentration - - Weight 138 kg (304 lb) 02/01/2024 2:02 PM EDT Height 162.6 cm (5' 4 ) 02/01/2024 2:02 PM EDT Body Mass Index 52.18 02/01/2024 2:02 PM EDT Plan of Treatment Health Maintenance Due Date Last Done Comments DXA SCAN 1960 LIPID PANEL 1960 Pneumococcal Vaccine 50+ (1 of 2 - PCV) 1977 TDAP/TD VACCINES (1 - Tdap) 1977 MAMMOGRAM 1998 COLOGUARD 2003 COLON CANCER SCREENING 5 YEA R SIGMOIDOSCOPY 2003 COLONOSCOPY 2003 COLORECTAL CANCER SCREENING 2003 CT COLONOGRAPHY 2003 FECAL OCCULT BLOOD TEST 2003 FIT Testing (1 year) 2003 ANNUAL WELLNESS VISIT 02/06/2021 HEPATITIS C SCREENING 02/06/2021 ZOSTER VACCINE (2 of 2) 12/16/2022 10/21/2022 INFLUENZA VACCINE 03/22/2025 COVID-19 Vaccine (6 - 2024-2 6 season) 2025 07/05/2023, 10/15/2022, 02/18/2022, Additional history exists Insurance [facility] MEDICARE ADVANTAGE [employer] HMO NON PAR Care Teams Cut Off Sawyer Relationship Specialty Start Date End Date Yuan Mccracken MD [address] [place] [address] PCP - General Family Medicine 10/13/22
--- OUTSIDE RECORDS SUMMARY | 2025-05-31 10:47 | XMS_ITS | Encounter Summary ---
Author Organization [employer] ([place], [place], [place], [place]) Address [address] [place] [address] Care Team Providers Care Fish Hatchery Laborer Name Role Phone Yuan Mccracken MD Primary Care Provider [phone] Encounter Details Date Type Department Care Team (Late st Contact Info) Description 01/21/2021 Transcribed Document [facility] Cardiology [address] [place] [phone] [place] [address] [place] [address] [address] [place] [address] Social History Tobacco Use Types Packs/Day Years [...] None Author: GRUPO SMITH MD-CAR BASIC Primary Warp Preparer: None Subjective Reconsulted; new onset a-fib. Started [...] for now. DC sub q. Decision for retirement OAC pending clinical course 01/17/2021 No indication for further cardiac testing at this time. Cardiology will sign off. documented in this encounter Plan of Treatment Not on file documented as of this encounter Visit Diagnoses Not on filedocumented in this encounter Care Teams Fish Hatchery Laborer Relationship Specialty Start Date End Date Yuan Mccracken MD [address] [place] [phone] PCP - General Family Medicine 09/23/22 documented as of this encounter
--- OUTSIDE RECORDS SUMMARY | 2025-05-31 10:47 | XMS_ITS | Encounter Summary ---
Author Organization [employer] ([place], [place], [place], [place]) Address [address] [place] [address] Care Team Providers Care Pharmacy Salesperson Name Role Phone Yuan Mccracken MD Primary Care Provider [phone] Encounter Details Date Type Department Care Team (Late st Contact Info) Description 01/17/2021 Transcribed Document [facility] Cardiology [address] [place] [phone] [place] [address] [place] [address] [address] [place] [address] Social History Tobacco Use Types Packs/Day Years [...] GRUPO SMITH MD-CAR Basic Information PCP: Primary Cleaner Housekeeping: None Chief Complaint shortness of breath History of Present Illness 60 year old female presented to the [facility] yesterday with complaints of progressively worsening [...] cefTRIAXone: 1 Gram, 100 mL/Hr, IV Piggyback, [id number] doxycycline + Sodium Chloride 0.9% intravenous solution 100 mL: 100 mg, 50 mL/Hr, IV Piggyback, [id number] heparin: 5,000 Units, SubCutaneous, Q8H nystatin: 500,000 Units, Swish and Spit, QID sodium bicarbonate injection 150 mEq + Dextrose 5% in Water intravenous solution 1,000 mL: 100 mL/hour, IntraVENous, Medications (12) Active Scheduled: (5) cefTRIAXone 1 Gram, IV Piggyback, [id number] doxycycline hyclate + NaCl 0.9% 100 mL 100 mg, IV Piggyback, [id number] famotidine 20 mg tab 20 mg 1 [...] GAN PA-C Past Medical History: Active Obesity ([id number]) Family History: Entire family history is negative. [...] sounds. Musculoskeletal: No deformity. Integumentary: Warm, Dry, [place]. Neurologic: Alert, Oriented. Psychiatric: Cooperative. Review / Management JANUARY 17 10:45 138 105 C 124 / H 158 L 3.3 L 18 H 4.40 \ JANUARY 17 10:45 \ L 9.0 / H 18.1 292 / L 27.0 \ Cardiac Markers (Current Encounter/Past 24 Hours) ProBNP 1385 pg/mL CT 01/16/2021 18:53 Blood Gases (Current Encounter/Past 24 Hours) pH Art 7.44 01/17/2021 09:39 pCO2 Art 22.6 CRIT 01/17/2021 09:[address] 01/17/2021 09:39 HCO3 Art 15.4 LOW 01/17/2021 [...] 01/17/2021 09:39 Radiology Results (Last 48 hours) [id number] -- 01/16/2021 19:34 CR Chest 1 Vw [...] filedocumented in this encounter Care Teams Pharmacy Salesperson Relationship Specialty Start Date End Date Yuan Mccracken MD [address] [place] [phone] PCP - General Family Medicine 09/23/22 documented as of this encounter
--- OUTSIDE RECORDS SUMMARY | 2025-05-31 10:47 | XMS_ITS | Encounter Summary ---
Author Organization [employer] ([place], [place], [place], [place]) Address [address] [place] [address] Care Team Providers Care Profile Saw Setup Operator Name Role Phone Yuan Mccracken MD Primary Care Provider [phone] Encounter Details Date Type Department Care Team (Late st Contact Info) Description 01/22/2021 Transcribed Document [facility] [place] Family Medicine [address] [place] [address] ProviderPerry MD [address] [place] [address] [id number] Social History Tobacco Use Types Packs/Day Years [...] - 01/22/2021 11:39 AM CDT Patient: CHANI VELAQSUEZ Age: 60 years Sex: Female : 1960 [...] Daily, PRN: Constipation Eliquis: 5 mg, Oral, A20SAtu Lac-Hydrin 12% topical lotion: 1 Application, Topical, [...] mL: 1,750 mg, 250 mL/Hr, IV Piggyback, [id number] Physical Examination VS/Measurements Vitals Signs (last 24 [...] EDT Height Source Stated Height Entry Format Evans Height/Length, MONTSERRATIAN (ft) 5 ft Height/Length MONTSERRATIAN 4 Inch CLINICALHEIGHT 162.56 cm Routine Weight Entry Format Evans Routine Weight, Pounds 270 lb Routine Weight, [...] 20) Plt 341 (JAN 22) 322 (JAN 02) 305 (JAN 20) 297 (JAN 20) Na 136 (JAN 22) 137 (JAN 02) 139 (JAN 20) 141 (JANUARY 19) K [...] to right leg -- consider vascular consult documented in this encounter Plan of Treatment Not on file documented as of this encounter Visit Diagnoses Not on filedocumented in this encounter Care Teams Profile Saw Setup Operator Relationship Specialty Start Date End Date Yuan Mccracken MD [address] [place] [phone] PCP - General Family Medicine 09/23/22 documented as of this encounter
--- OUTSIDE RECORDS SUMMARY | 2025-05-31 10:47 | XMS_ITS | Encounter Summary ---
Author Organization [employer] ([place], [place], [place], [place]) Address [address] [place] [address] Care Team Providers Care Memory Care Director Name Role Phone Yuan Mccracken MD Primary Care Provider [phone] Encounter Details Date Type Department Care Team (Late st Contact Info) Description 01/17/2021 Transcribed Document [facility] [place] [address] [place] [address] ProviderPerry MD [address] [place] [address] Social History Tobacco Use Types Packs/Day Years Used Date Smoking Tobacco: Never Assessed Comments Unknown Sex and Gender Information Value Date Recorded Sex Assigned at Not on file Legal Sex Female 12:32 PM CDT Gender Identity Not on file Sexual Orientation Not on file documented as of this encounter Miscellaneous Notes * Cerner Conversion Note - Perry ProviderMD - 01/17/2021 11:01 AM CDT Consult Phone Call Documentation Entered On: 01/17/2021 18:47 EDT Performed On: 01/17/2021 11:01 EDT by Maximo Saldaña Non Emp RN Phone Call for Consults Consult Phone Call/Page Attempt : First call Maximo Saldaña Non Emp RN - 01/17/2021 18:46 EDT Electronically signed by Gayle Laguerre Conversion Center Director Lead Teacher Cerner at 12/07/2022 6:18 PM CDT documented in this encounter Plan of Treatment Not on file documented as of this encounter Visit Diagnoses Not on filedocumented in this encounter Care Teams Memory Care Director Relationship Specialty Start Date End Date Yuan Mccracken MD [address] [place] [address] PCP - General Family Medicine 09/23/22 documented as of this encounter
--- OUTSIDE RECORDS SUMMARY | 2025-05-31 10:47 | XMS_ITS | Encounter Summary ---
Author Organization [employer] ([place], [place], [place], [place]) Address [address] [place] [address] Care Team Providers Care Burr Filer Name Role Phone Yuan Mccracken MD Primary Care Provider [phone] Encounter Details Date Type Department Care Team (Late st Contact Info) Description 01/17/2021 Transcribed Document [facility] [place] [address] [place] [address] ProviderPerry MD [address] [place] [address] Social History Tobacco Use Types [...] on filedocumented in this encounter Care Teams Burr Filer Relationship Specialty Start Date End Date Yuan Mccracken MD [facility] [place] [place] [address] PCP - General Family Medicine 09/23/22 documented as of this encounter
--- OUTSIDE RECORDS SUMMARY | 2025-05-31 10:47 | XMS_ITS | Encounter Summary ---
Author Organization [employer] ([place], [place], [place], [place]) Address [address] [place] [address] Care Team Providers Care Floor Assembler Name Role Phone Yuan Mccracken MD Primary Care Provider [phone] Encounter Details Date Type Department Care Team (Late st Contact Info) Description 01/21/2021 Transcribed Document [facility] [place] Family Medicine [address] [place] [address] ProviderPerry MD [address] [place] [address] Social History Tobacco Use Types Packs/Day Years Used Date Smoking Tobacco: Never Assessed Comments Unknown Sex and Gender Information Value Date Recorded Sex Assigned at Not on file Legal Sex Female 12:32 PM CDT Gender Identity Not on file Sexual Orientation Not on file documented as of this encounter Miscellaneous Notes * Cerner Conversion Note - Perry ProviderMD - 01/21/2021 8:19 AM CDT UM Authorization [...] 01/20/2021 13:51) DWIGHT PERALTA, RN-Utilization Review - 01/21/2021 8:19 EDT Electronically signed by Carlotta [facility] Conversion Ampoule Examiner Cerner at 12/07/2022 6:02 PM CDT documented in this encounter Plan of Treatment Not on file documented as of this encounter Visit Diagnoses Not on filedocumented in this encounter Care Teams Floor Assembler Relationship Specialty Start Date End Date Yuan Mccracken MD [address] [place] [phone] PCP - General Family Medicine 09/23/22 documented as of this encounter
--- OUTSIDE RECORDS SUMMARY | 2025-05-31 10:47 | XMS_ITS | Encounter Summary ---
Author Organization [employer] ([place], [place], [place], [place]) Address [address] [place] [address] Care Team Providers Care Heater Room Helper Name Role Phone Yuan Mccracken MD Primary Care Provider [phone] Encounter Details Date Type Department Care Team (Late st Contact Info) Description 01/21/2021 Transcribed Document [facility] [place] Family [place] [facility] [place] [address] ProviderPerry MD [address] [place] [address] Social History Tobacco Use Types Packs/Day Years Used Date Smoking Tobacco: Never Assessed Comments Unknown Sex and Gender Information Value Date Recorded Sex Assigned at Not on file Legal Sex Female 12:32 PM CDT Gender Identity Not on file Sexual Orientation Not on file documented as of this encounter Miscellaneous Notes * Cerner Conversion Note - Perry ProviderMD - 01/21/2021 3:20 PM CDT Initial Discharge Planning Entered On: 01/21/2021 15:25 EDT Performed On: 01/21/2021 15:20 EDT by JORDEN DELCID, RN-Spot Welder Body Assembly Initial Assessment I Previously Documented Living Environment : No qualifying data available. Living Situation : Home Patient Lives With : Alone, Other: alone currently due to pt recently discharged from [facility] to a SNF Emergency Contact #1 : Dion Ayers Emergency Contact #1 Emergency Contact #1 Relationship : son Emergency Contact #2 : Chai Ron Emergency Contact #2 Emergency Contact #2 Relationship : spouse/resident [facility] Does Patient have PCP Listed? : No Medical Durable Power of Filler Shredder Machine Name : no Legal Guardian : No Is Guardianship Needed : No JORDEN DELCID RN-Spot Welder Body Assembly - 01/21/2021 15:20 EDT Initial Assessment II Sensory and Motor Deficits : Cognitive deficit, Weakness Current Home Treatments and Equipment : Bedside commode, Cane, Shower chair, Walker Does the Patient have a Floor to SNF Benefit? : No JORDEN DELCID RN-Spot Welder Body Assembly - 01/21/2021 15:20 EDT Discharge Needs I Anticipated Discharge Date : 01/23/2021 EDT Anticipated Discharge To, CM : Home with home health, Rehabilitation Unit, [facility] facility Current Home Treatment/Equipment : Current Home Treatment/Equipment No qualifying data available. Post Acute/Home Treatments : Bedside commode, Cane, Shower chair, Walker Documentation Status Complete : Yes JORDEN DELCID RN-Spot Welder Body Assembly - 01/21/2021 15:20 EDT Discharge Needs II Professional Skilled Services : Professional Skilled Services No qualifying data available. Needs Assistance with Transportation : Maybe Discharge Options Discussed with Patient : Acute rehabilitation, Home Health, skilled nursing JORDEN DELCID RN-Spot Welder Body Assembly - 01/21/2021 15:20 EDT Narrative Note Narrative Note : HD# 5. elos: not documented. RAR: moderate 57. BOOST: 3 ED admit. severe hyperkalemia. metabolic acidosis. acute renal failure. afib-rvr. lower ext cellulitis. left renal calculi. 02 4L nc. cardizem gtt to off. hep gtt to off. doxycycline/zosyn iv. coccyx mist rx. PT/OT steps to chair. spoke with Ms Velasquez. she resides in [facility]. lives alone. her spouse, Chai, is resident of [facility], available by phone. she has mentioned equipment. no hh or rehab stays. pt has no health insurance. referral to [facility], ? medicaid eligible. pt has no pcp. referral to pt access for pcp assignment. dcp: rehab vs hh. will need payor source established. spoke with bedside RNLala CARRIE W, RN-Spot Welder Body Assembly - 01/21/2021 15:25 EDT Electronically signed by Mamadou Laguerre Conversion Library Clerical Assistant Cerner at 12/07/2022 6:12 PM CDT documented in this encounter Plan of Treatment Not on file documented as of this encounter Visit Diagnoses Not on filedocumented in this encounter Care Teams Heater Room Helper Relationship Specialty Start Date End Date Yuan Mccracken MD [address] [place] [address] PCP - General Family Medicine 09/23/22 documented as of this encounter
--- OUTSIDE RECORDS SUMMARY | 2025-05-31 10:47 | XMS_ITS | Encounter Summary ---
Author Organization [employer] ([place], [place], [place], [place]) Address [address] [place] [address] Care Team Providers Care Biological Lab Technician Name Role Phone Yuan Mccracken MD Primary Care Provider [phone] Encounter Details Date Type Department Care Team (Late st Contact Info) Description 01/27/2021 Transcribed Document [facility] [place] [facility] [place] [address] ProviderPerry MD [address] [place] [phone] Social History Tobacco Use Types Packs/Day Years Used Date Smoking Tobacco: Never Assessed Comments Unknown Sex and Gender Information Value Date Recorded Sex Assigned at Not on file Legal Sex Female 12:32 PM CDT Gender Identity Not on file Sexual Orientation Not on file documented as of this encounter Miscellaneous Notes * Cerner Conversion Note - Perry ProviderMD - 01/27/2021 2:00 AM CDT Manufacturing Test Engineer Details Entered On: 01/27/2021 7:25 EDT Performed [...] - 01/27/2021 7:25 EDT Electronically signed by Carlotta, [facility] Conversion Gallery Host Cerner at 12/07/2022 6:22 PM CDT documented in this encounter Plan of Treatment Not on file documented as of this encounter Visit Diagnoses Not on filedocumented in this encounter Care Teams Biological Lab Technician Relationship Specialty Start Date End Date Yuan Mccracken MD [address] [place] [address] PCP - General Family Medicine 09/23/22 documented as of this encounter
--- OUTSIDE RECORDS SUMMARY | 2025-05-31 10:47 | XMS_ITS | Encounter Summary ---
Author Organization [employer] ([place], [place], [place], [place]) Address [address] [place] [address] Care Team Providers Care Stock Checker Name Role Phone Yuan Mccracken MD Primary Care Provider [phone] Encounter Details Date Type Department Care Team (Late st Contact Info) Description 01/16/2021 Transcribed Document [facility] [place] [address] ProviderPerry MD [address] [place] [phone] Social History Tobacco Use Types Packs/Day Years Used Date Smoking Tobacco: Never Assessed Comments Unknown Sex and Gender Information Value Date Recorded Sex Assigned at Not on file Legal Sex Female 12:32 PM CDT Gender Identity Not on file Sexual Orientation Not on file documented as of this encounter Miscellaneous Notes * Cerner Conversion Note - Perry ProviderMD - 01/16/2021 7:44 PM CDT Patient: CHANI [...] Order on Record Electronically signed by Carlotta [facility] Conversion Protection Mgr Cerner at 12/07/2022 6:13 PM CDT documented in this encounter Plan of Treatment Not on file documented as of this encounter Visit Diagnoses Not on filedocumented in this encounter Care Teams Stock Checker Relationship Specialty Start Date End Date Yuan Mccracken MD [address] [place] [phone] PCP - General Family Medicine 09/23/22 documented as of this encounter
--- OUTSIDE RECORDS SUMMARY | 2025-05-31 10:47 | XMS_ITS | Encounter Summary ---
Author Organization [employer] ([place], [place], [place], [place]) Address [address] [place] [address] Care Team Providers Care Developer Designer Name Role Phone Yuan Mccracken MD Primary Care Provider [phone] Encounter Details Date Type Department Care Team (Late st Contact Info) Description 01/21/2021 Transcribed Document [facility] [place] [address] [place] [address] ProviderPerry MD [address] [place] [address] 250951 Social History Tobacco Use Types Packs/Day Years [...] On: 01/21/2021 13:34 EDT by Sil Nuno Technical Data AnalystHealth Unit Coord Phone Call for Consults Consult Phone Call/Page Attempt : First call Consult Reason : worsening rle cellulitis Physician Requesting Consult : MAHSA RINALDI MD Physician Requested for Consult : JAGUAR REGALADO MD-INF Provider Service Notified Name : Infectious Disease Consult, Additional Information : consulted the office about consult. Sil Nuno Technical Data AnalystHealth Unit Coord - 01/21/2021 14:35 EDT Electronically signed by Carlotta, Mamadou Conversion Equipment Validation Specialist Cerner at 12/07/2022 6:08 PM CDT documented in this encounter Plan of Treatment Not on file documented as of this encounter Visit Diagnoses Not on filedocumented in this encounter Care Teams Developer Designer Relationship Specialty Start Date End Date Yuan Mccracken MD [address] [place] [phone] PCP - General Family Medicine 09/23/22 documented as of this encounter
--- OUTSIDE RECORDS SUMMARY | 2025-05-31 10:47 | XMS_ITS | Encounter Summary ---
Author Organization [facility] ([place], [place], [place], [place]) Address [address] [place] [address] Care Team Providers Care Map Compiler Name Role Phone Yuan Mccracken MD Primary Care Provider [phone] Encounter Details Date Type Department Care Team (Late st Contact Info) Description 01/21/2021 Transcribed Document [facility] [place] Family Medicine [facility] [place] [address] ProviderPerry MD [address] [place] [id number] Social History Tobacco Use Types Packs/Day Years Used Date Smoking Tobacco: Never Assessed Comments Unknown Sex and Gender Information Value Date Recorded Sex Assigned at Not on file Legal Sex Female 12:32 PM CDT Gender Identity Not on file Sexual Orientation Not on file documented as of this encounter Miscellaneous Notes * Cerner Conversion Note - Perry ProviderMD - 01/21/2021 12:23 PM CDT Nutrition Assessment Entered On: 01/21/2021 12:27 EDT Performed On: 01/21/2021 12:23 EDT by Tonie Billings Dietitian Nutrition Assessment Nutrition Assessment Reason : [...] (improving from admission). BLE 1-3+ edema. LBM 5/29 x 2. Arterial insufficiency related ulcer to [...] 01/21/2021 12:22 EDT Electronically signed by Carlotta [facility] Conversion Front Office Director Cerner at 12/07/2022 6:28 PM CDT documented in this encounter Plan of Treatment Not on file documented as of this encounter Visit Diagnoses Not on filedocumented in this encounter Care Teams Map Compiler Relationship Specialty Start Date End Date Yuan Mccracken MD [address] [place] [phone] PCP - General Family Medicine 09/23/22 documented as of this encounter
--- OUTSIDE RECORDS SUMMARY | 2025-05-31 10:47 | XMS_ITS | Encounter Summary ---
Author Organization [employer] ([place], [place], [place], [place]) Address [address] [place] [address] Care Team Providers Care Mild Disabilities Teacher Name Role Phone Yuan Mccracken MD Primary Care Provider [phone] Encounter Details Date Type Department Care Team (Late st Contact Info) Description 01/17/2021 Transcribed Document [facility] Radiology [address] [place] [address] [place] [address] [place] [address] [address] [place] [id number] Social History Tobacco Use Types Packs/Day Years [...] good care of herself, recently put in halfway. She is unsure of how she has [...] Start 01/17/21 8:10:00 EDT, 01/17/21 8:10:00 EDT (NICOLE, PRINCESS) Medications cefTRIAXone doxycycline, 100 mg, IV Piggyback, A86XCps Dulcolax Laxative, 5 mg= 1 Tab, Oral, Daily, PRN DuoNeb 0.5 mg-2.5 mg/3 mL inhalation solution, 3 mL, Nebulized Inhalation , RT_Q6H, PRN heparin, 5000 Units= 1 mL, SubCutaneous, Q8H MiraLax, 17 Gram= 1 Packet, Oral, Daily, PRN nystatin, [id number] Units= 5 mL, Swish and Spit, QID [...] 38 mg/dL 01/16/2021 20:51 EDT Sodium Ur Sharples 60 mMole/Liter 01/16/2021 20:51 EDT Troponin I [...] # 0.54 x10(3)/uL (Low) 01/16/2021 17:43 EDT [place] % 4.2 % 01/16/2021 20:59 EDT [place] % 4.5 % 01/16/2021 17:43 EDT [place] # 0.88 K/uL 01/16/2021 20:59 EDT [place] # 0.98 K/uL 01/16/2021 17:43 EDT Eos [...] EDT Polychromasia 1+ (Abnormal) 01/16/2021 17:43 EDT [place] Cells 1+ (Abnormal) 01/16/2021 17:43 EDT Platelet [...] Appearance CLEAR2 01/16/2021 20:51 EDT Urine Specific [place] 1.011 01/16/2021 20:51 EDT Urine pH Dipstick [...] on filedocumented in this encounter Care Teams Mild Disabilities Teacher Relationship Specialty Start Date End Date Yuan Mccracken MD [address] [place] [phone] PCP - General Family Medicine 09/23/22 documented as of this encounter
--- OUTSIDE RECORDS SUMMARY | 2025-05-31 10:47 | XMS_ITS | Encounter Summary ---
Author Organization [employer] ([place], [place], [place], [place]) Address [address] [place] [address] Care Team Providers Care Chief Knowledge Officer Name Role Phone Yuan Mccracken MD Primary Care Provider [phone] Encounter Details Date Type Department Care Team (Late st Contact Info) Description 01/27/2021 Transcribed Document [facility] [place] Family [place] [facility] [place] [address] ProviderPerry MD [address] [place] [address] Social History Tobacco Use Types Packs/Day Years Used Date Smoking Tobacco: Never Assessed Comments Unknown Sex and Gender Information Value Date Recorded Sex Assigned at Not on file Legal Sex Female 12:32 PM CDT Gender Identity Not on file Sexual Orientation Not on file documented as of this encounter Miscellaneous Notes * Cerner Conversion Note - Perry ProviderMD - 01/27/2021 5:00 AM CDT Chart Check [...] on filedocumented in this encounter Care Teams Chief Knowledge Officer Relationship Specialty Start Date End Date Yuan Mccracken MD [address] [place] [address] PCP - General Family Medicine 09/23/22 documented as of this encounter
--- OUTSIDE RECORDS SUMMARY | 2025-05-31 10:48 | XMS_ITS | Encounter Summary ---
Author Organization [employer] ([place], [place], [place], [place]) Address [address] [place] [address] Care Team Providers Care Bench Examiner Name Role Phone Yuan Mccracken MD Primary Care Provider [phone] Encounter Details Date Type Department Care Team (Late st Contact Info) Description 01/30/2021 Transcribed Document [facility] Family Medicine [facility] [place] [address] ProviderPerry MD [address] [place] [address] Social History Tobacco Use Types Packs/Day [...] Performed On: 01/30/2021 9:23 EDT by DWIGHT PERALTA RN-Utilization Review Primary Insurance Authorization Authorization and Policy Numbers : Insurance 1 Health Plan: [facility] Policy Number: [id number] Authorization Number: Insurance Primary Name : [facility] MEDICAID [id number] Authorization Status-Primary : Awaiting callback Reference Number-Primary : Pend ref # [id number]. Authorized Service Begin Date-Primary : 01/16/2021 EDT Historical Authorization Comments-Primary : Comment 1: CM gave a medicaid ID no. Per [facility] pt has [facility]. Notified [facility] clinicals submitted via [facility] portal and faxed via [employer] from 01/16 to 01/29 for Ip approval (CARMEN MARLOW RN 01/29/2021 14:06) Comment 2: MEDICAID PENDING (FABIAN DWIGHT D, RN-Utilization Review 01/28/2021 08:04) Comment 3: MEDICAID PENDING (FABIAN DWIGHT D, RN-Utilization Review 01/27/2021 08:41) Comment 4: MEDICAID PENDING (FABIAN DWIGHT D, RN-Utilization Review 01/26/2021 08:45) Comment 5: MEDICAID PENDING (FABIAN DWIGHT D, RN-Utilization Review 01/23/2021 09:42) Comment 6: SELF PAY (DWIGHT PERALTA D, RN-Utilization Review 01/22/2021 08:29) Comment 7: [...] on filedocumented in this encounter Care Teams Bench Examiner Relationship Specialty Start Date End Date Yuan Mccracken MD [address] [place] [phone] PCP - General Family Medicine 09/23/22 documented as of this encounter
--- OUTSIDE RECORDS SUMMARY | 2025-05-31 10:48 | XMS_ITS | Encounter Summary ---
Author Organization [employer] ([place], [place], [place], [place]) Address [address] [place] [address] Care Team Providers Care Knot Picker Cloth Name Role Phone Yuan Mccracken MD Primary Care Provider [phone] Encounter Details Date Type Department Care Team (Late st Contact Info) Description 01/23/2021 Transcribed Document [facility] [place] Family Medicine [address] [place] [address] ProviderPerry MD [address] [place] [address] Social History Tobacco Use Types Packs/Day [...] Performed On: 01/29/2021 14:34 EDT by CESIA WILSON, LORENA General Information, [...] : 01/16/2021 19:34 Assisted by, PT : chief technical officer/aide Personal Devices : Personal Devices Dentures, upper [...] WILSON, CESIA, PT - 01/29/2021 15:30 EDT Laborer Demolition Goals Mobility/Bed Mobility LTG PT Grid Goal [...] Date Met : 01/26/2021 EDT 01/25/2021 EDT WILSONCESIA, PT - 01/29/2021 15:30 EDT WILSON CESIA, [...] on filedocumented in this encounter Care Teams Knot Picker Cloth Relationship Specialty Start Date End Date Yuan Mccracken MD [address] [place] [phone] PCP - General Family Medicine 09/23/22 documented as of this encounter
--- OUTSIDE RECORDS SUMMARY | 2025-05-31 10:48 | XMS_ITS | Encounter Summary ---
Author Organization [employer] ([place], [place], [place], [place]) Address [address] [place] [address] Care Team Providers Care Supervisor Sterile Processing Name Role Phone Yuan Mccracken MD Primary Care Provider [phone] Encounter Details Date Type Department Care Team (Late st Contact Info) Description 01/29/2021 Transcribed Document [facility] Family Medicine [address] [place] [address] ProviderPerry MD [address] [place] [address] Social History Tobacco Use Types Packs/Day Years Used Date Smoking Tobacco: Never Assessed Comments Unknown Sex and Gender Information Value Date Recorded Sex Assigned at Not on file Legal Sex Female 12:32 PM CDT Gender Identity Not on file Sexual Orientation Not on file documented as of this encounter Miscellaneous Notes * Cerner Conversion Note - Perry ProviderMD - 01/29/2021 4:00 AM CDT Height and Weight, Routine Entered On: 01/29/2021 5:59 EDT Performed On: 01/29/2021 4:00 EDT by PAYTON MONIQUE RN-PATIENT CARE BEDSIDE NON-EXEMPT Height and Weight, Routine Routine Weight Source : Bed scale Routine Weight Entry Format : [place] Routine Weight, Pounds : 267 lb Routine Weight, Ounces : 5 oz Routine Weight Calculation : 121.51 kg Height Source : Stated Height Entry Format : [place] Height, Feet : 5 ft Height, Inches : 4 Inch Clinical Height : 162.56 cm Body Surface Area (BSA), Routine : 2.21 m2 Body Mass Index (BMI), Routine : 45.98 kg/m2 PAYTON MONIQUE RN-PATIENT CARE BEDSIDE NON-EXEMPT - 01/29/2021 5:59 EDT documented in this encounter Plan of Treatment Not on file documented as of this encounter Visit Diagnoses Not on filedocumented in this encounter Care Teams Supervisor Sterile Processing Relationship Specialty Start Date End Date Yuan Mccracken MD [address] [place] [phone] PCP - General Family Medicine 09/23/22 documented as of this encounter
--- OUTSIDE RECORDS SUMMARY | 2025-05-31 10:48 | XMS_ITS | Encounter Summary ---
Author Organization [employer] ([place], [place], [place], [place]) Address [address] [place] [address] Care Team Providers Care Assistant Hall Director Name Role Phone Yuan Mccracken MD Primary Care Provider [phone] Encounter Details Date Type Department Care Team (Late st Contact Info) Description 01/22/2021 Transcribed Document [facility] [place] Family Medicine [address] [place] [address] ProviderPerry MD [address] [place] [address] Social History Tobacco Use Types Packs/Day Years Used Date Smoking Tobacco: Never Assessed Comments Unknown Sex and Gender Information Value Date Recorded Sex Assigned at Not on file Legal Sex Female 12:32 PM CDT Gender Identity Not on file Sexual Orientation Not on file documented as of this encounter Miscellaneous Notes * Cerner Conversion Note - Perry ProviderMD - 01/22/2021 8:29 AM CDT UM Authorization [...] 01/20/2021 13:51) DWIGHT PERALTA RN-Utilization Review - 01/22/2021 8:29 EDT Electronically signed by Carlotta [facility] Conversion Dairy Farmworker Cerner at 12/07/2022 6:13 PM CDT documented in this encounter Plan of Treatment Not on file documented as of this encounter Visit Diagnoses Not on filedocumented in this encounter Care Teams Assistant Hall Director Relationship Specialty Start Date End Date Yuan Mccracken MD [address] [place] [phone] PCP - General Family Medicine 09/23/22 documented as of this encounter
--- OUTSIDE RECORDS SUMMARY | 2025-05-31 10:48 | XMS_ITS | Encounter Summary ---
Author Organization [employer] ([place], [place], [place], [place]) Address [address] [place] [address] Care Team Providers Care Carving Machine Operator Name Role Phone Yuan Mccracken MD Primary Care Provider [phone] Encounter Details Date Type Department Care Team (Late st Contact Info) Description 02/02/2021 Transcribed Document [facility] [place] Family Medicine [address] [place] [address] ProviderPerry MD [address] [place] [address] Social History Tobacco Use Types Packs/Day [...] PENNINGTON, RN-NAVIGATOR CANCER - 02/02/2021 15:27 EDT documented in this encounter Plan of Treatment Not on file documented as of this encounter Visit Diagnoses Not on filedocumented in this encounter Care Teams Carving Machine Operator Relationship Specialty Start Date End Date Yuan Mccracken MD [address] [place] [phone] PCP - General Family Medicine 09/23/22 documented as of this encounter
--- OUTSIDE RECORDS SUMMARY | 2025-05-31 10:48 | XMS_ITS | Encounter Summary ---
Author Organization [employer] ([place], [place], [place], [place]) Address [address] [place] [address] Care Team Providers Care Principal Hardware Architect Name Role Phone Yuan Mccracken MD Primary Care Provider [phone] Encounter Details Date Type Department Care Team (Late st Contact Info) Description 01/30/2021 Transcribed Document [facility] [place] Family Medicine [address] [place] [address] ProviderPerry MD [address] [place] [phone] Social History Tobacco Use Types Packs/Day Years [...] 01/30/2021 10:18 EDT by Maryjane Gonzalez V, Home Furnishings Sales Representative Teacher Specialist Care Management Progress Note Discharge Arrangements : Patient Post-Acute Information Patient Name: CHANI VELASQUEZ Gender: Female : 56 Age: 60 Years No Post-Acute Placement(s) Listed No Post-Acute Service(s) Listed No [place] Referral(s) Listed Discharge Options Discussed with Patient : Acute rehabilitation, Home Health, [facility] Barriers to Discharge Identified : Clinical Condition of Patient Barriers to Discharge Unresolved : Clinical Condition of Patient Is the Patient Meeting Medical Necessity : Yes Physician Agreeable to Move Forward with D/C Plan? : Yes Did you Attend Multidisciplinary Rounds? : Yes Maryjane Gonzalez Social Worker Teacher Specialist - 01/30/2021 10:18 EDT Narrative Progress Note Narrative Progress Note : HD#13, elos-4, RRS-Moderate, Boost-[address] Gillis with Nephrology to see if patient is medically ready for dc to [facility] even though she is receiving IV albumin. Unable to reach him. Pt is scheduled to transfer to [facility] on Tuesday, 01/31 at 10am. If patient isn't medically ready per Nephology, [facility] transport will need to be canceled. If pt can transfer, RN to call report: [phone]. Fax DC summary fax to: [phone]. Maryjane Gonzalez Social Worker Teacher Specialist - 01/30/2021 16:45 EDT Historical Progress Note : HD#12, elos-4, RRS-Moderate, Boost-3 [facility] and she is agreeable to rehab placement. Unable to obtain transportation until Tuesday at 10am via [facility] Maryjane Gonzalez Social Worker Teacher Specialist - 01/29/21 16:32:32 HD#11, elos-4, RRS-Moderate, Boost-3 ID following and stopped IV Vanc and Zosyn. po doxy continued. Nephrology following. leg wounds improving with mist therapy with PT. CM sent updated clinical/therapy updates to all [place] and [facility] for possible rehab palcement. Lack of insurance is a HUGE placement barrier. No current bed offers. CM to follow Maryjane Gonzalez Social Worker Teacher Specialist - 01/28/21 15:01:06 HD#10, elos-4, RRS-Moderate, Boost-3 ID following. IV Vanc and Zosyn and po doxy. Per nephrology, renal function stable. Wound care and mist therapy with PT. CM sent updated clinical/therapy updates to all [place] and [place] facilities. Lack of insurance is a huge placement barrier. CM called [facility]. Left message for admit coordinator. Patient's is a resident at [facility]. CM hopes that they will accept patient as well with pending Medicaid. CM to follow Maryjane Gonzalez Social Worker Teacher Specialist - 01/27/21 14:23:52 HD#6, elos-4, RRS-Moderate, Boost-3 [...] and insurance status. Maryjane Gonzalez Social Worker Teacher Specialist - 01/26/21 13:44:57 HD#6, ELOS-not recorded, RRS-Moderate, Boost-3 ID following and recommending culture right leg wound and possible vascular consult. On IV Vanc and Zosyn. 3L 02/NC.,wound care. PT/OT recommending rehab. Referrals sent via [facility] to [facility] and SNF. Patient pending Medicaid. Placement susanna be difficult due to no insurance. is a resident at [facility]. Referral sent there too. CM to follow -- Maryjane Gonzalez Social Worker Teacher Specialist - 01/23/21 12:17:40 HD#5, ELOS-not recorded, RRS-Moderate, Boost-3 Patient on 2L 02/NC. IV Abx-Vanc and Zosyn. Wound care by PT. PT/OT recommending rehab. CM sent referrals via [employer]. Patient's is a resident at [facility]. Patient is self pay and has no health or presription coverage. Placement may be difficult due to pending Medicaid status. CM to follow patient's [facility] and SNF placement options. Maryjane Gonzalez Social Worker Teacher Specialist - 01/22/21 13:50:41 Maryjane Gonzalez Social Worker Teacher Specialist - 01/30/2021 10:18 EDT documented in this encounter Plan of Treatment Not on file documented as of this encounter Visit Diagnoses Not on filedocumented in this encounter Care Teams Principal Hardware Architect Relationship Specialty Start Date End Date Yuan Mccracken MD [facility] [place] [phone] PCP - General Family Medicine 09/23/22 documented as of this encounter
--- OUTSIDE RECORDS SUMMARY | 2025-05-31 10:48 | XMS_ITS | Encounter Summary ---
Author Organization [employer] ([place], [place], [place], [place]) Address [address] [place] [address] Care Team Providers Care Sponsorship Coordinator Name Role Phone Yuan Mccracken MD Primary Care Provider [phone] Encounter Details Date Type Department Care Team (Late st Contact Info) Description 01/23/2021 Transcribed Document [facility] [place] [facility] [address] ProviderPerry MD [address] [place] [phone] Social History Tobacco Use Types Packs/Day Years Used Date Smoking Tobacco: Never Assessed Comments Unknown Sex and Gender Information Value Date Recorded Sex Assigned at Not on file Legal Sex Female 12:32 PM CDT Gender Identity Not on file Sexual Orientation Not on file documented as of this encounter Miscellaneous Notes * Cerner Conversion Note - Perry ProviderMD - 01/23/2021 5:00 AM CDT Chart Check - Review Order Profile Entered On: 01/23/2021 6:46 EDT Performed On: 01/23/2021 5:00 EDT by Karina Regalado RN-PATIENT CARE BEDSIDE NON-EXEMPT Chart Check Powerplans Initiated/Discontinued as Appropriate : Yes All Active Orders Reviewed : Yes Karina Regalado RN-PATIENT CARE BEDSIDE NON-EXEMPT - 01/23/2021 6:46 EDT Electronically signed by Carlotta [facility] Conversion Hazard Mitigation Officer Cerner at 12/07/2022 6:02 PM CDT documented in this encounter Plan of Treatment Not on file documented as of this encounter Visit Diagnoses Not on filedocumented in this encounter Care Teams Sponsorship Coordinator Relationship Specialty Start Date End Date Yuan Mccracken MD [address] [place] [phone] PCP - General Family Medicine 09/23/22 documented as of this encounter
--- OUTSIDE RECORDS SUMMARY | 2025-05-31 10:48 | XMS_ITS | Encounter Summary ---
Author Organization [employer] ([place], [place], [place], [place]) Address [address] [place] [address] Care Team Providers Care Police Lieutenant Name Role Phone Yuan Mccracken MD Primary Care Provider [phone] Encounter Details Date Type Department Care Team (Late st Contact Info) Description 01/24/2021 Transcribed Document [facility] [place] [address] ProviderPerry MD [address] [place] [phone] Social History Tobacco Use Types Packs/Day Years [...] - Medical Apixaban 5 mg, Oral, Tab, [id number], Routine, Start 01/21/21 10:00:00 EDT, 01/21/21 9:43:00 [...] PRN Eliquis, 5 mg= 1 Tab, Oral, [id number] Lac-Hydrin 12% topical lotion, 1 Application, Topical, [...] mg= 1 Tab, Oral, BID, PRN nystatin, [id number] Units= 5 mL, Swish and Swallow , [...] Lymph # 1.28 x10(3)/uL 01/24/2021 07:[address] [place] % 6.8 % 01/24/2021 07:[address] [place] # 0.88 K/uL 01/24/2021 07:39 EDT Eos [...] mcg/mL 01/23/2021 17:04 EDT Electronically signed by [facility] Conversion Web Software Engineer Cerner at 12/07/2022 6:11 PM CDT documented in this encounter Plan of Treatment Not on file documented as of this encounter Visit Diagnoses Not on filedocumented in this encounter Care Teams Police Lieutenant Relationship Specialty Start Date End Date Yuan Mccracken MD [place] [address] PCP - General Family Medicine 09/23/22 documented as of this encounter
--- OUTSIDE RECORDS SUMMARY | 2025-05-31 10:48 | XMS_ITS | Encounter Summary ---
Author Organization [employer] ([place], [place], [place], [place]) Address [address] [place] [address] Care Team Providers Care Qc Manager Name Role Phone Yuan Mccracken MD Primary Care Provider [phone] Encounter Details Date Type Department Care Team (Late st Contact Info) Description 01/29/2021 Transcribed Document [facility] [place] Family Medicine [address] [place] [address] ProviderPerry MD [address] [place] [phone] Social History Tobacco Use Types Packs/Day Years [...] RT_Q6H, PRN: Wheezing Eliquis: 5 mg, Oral, [id number] Lac-Hydrin 12% topical lotion: 1 Application, Topical, [...] 21:12) 68 (JAN 29 09:21) Mon HR 63 (JAN 29 10:00) 58 [...] 28 17:57) 86 (JAN 29 05:58) SpO2 L 93 (JAN 29 10:00) L 93 (JAN 29 10:00) 98 (JAN 28 17:57) , Measurements from flowsheet : Measurements 01/29/2021 4:00 EDT Height Source Stated Height Entry Format [place] Height/Length, GERMAN (ft) 5 ft Height/Length [place] 4 Inch CLINICALHEIGHT 162.56 cm Routine Weight Source Bed scale Routine Weight Entry Format [place] Routine Weight, Pounds 267 lb Routine Weight, Ounces 5 oz Routine Weight Calculation 121.51 kg Body Mass Index (BMI), Routine 45.98 kg/m2 Body Surface Area (BSA), Routine 2.21 m2 01/28/2021 5:00 EDT Routine Weight Source Bed scale Routine Weight Entry Format [place] Routine Weight, Pounds 281 lb Routine Weight [...] L 6.3 (TOM 05) ALB L 1.9 (JAN 29) L 1.5 (JAN 27) L 1.5 (JAN [...] to 02/02 -- probiotic Electronically signed by Carlotta [facility] Conversion General Assistant Cerner at 12/07/2022 6:03 PM CDT documented in this encounter Plan of Treatment Not on file documented as of this encounter Visit Diagnoses Not on filedocumented in this encounter Care Teams Qc Manager Relationship Specialty Start Date End Date Yuan Mccracken MD [facility] [place] [address] PCP - General Family Medicine 09/23/22 documented as of this encounter
--- OUTSIDE RECORDS SUMMARY | 2025-05-31 10:48 | XMS_ITS | Encounter Summary ---
Author Organization [employer] ([place], [place], [place], [place]) Address [address] [place] [address] Care Team Providers Care Consumer Affairs Manager Name Role Phone Yuan Mccracken MD Primary Care Provider [phone] Encounter Details Date Type Department Care Team (Late st Contact Info) Description 01/31/2021 Transcribed Document [facility] Family Medicine [address] [place] [address] ProviderPerry MD [address] [place] [address] [phone] Social History Tobacco Use Types Packs/Day Years [...] On: 01/31/2021 9:40 EDT by EFRAIN RAY, STEPHEN-Salad Bar Clerk Final Discharge Planning Discharge Arrangements : Patient [...] Management : SNF with Medicare Certification-03 EFRAIN RAY RN-Salad Bar Clerk - 01/31/2021 9:40 EDT Final Narrative Note Final Narrative Note : andrae giles at 10am EFRAIN RAY RN-Salad Bar Clerk - 01/31/2021 9:40 EDT Electronically signed by Carlotta, [facility] Conversion Track Patrol Cerner at 12/07/2022 6:21 PM CDT documented in this encounter Plan of Treatment Not on file documented as of this encounter Visit Diagnoses Not on filedocumented in this encounter Care Teams Consumer Affairs Manager Relationship Specialty Start Date End Date Yuan Mccracken MD [address] [place] [phone] PCP - General Family Medicine 09/23/22 documented as of this encounter
--- OUTSIDE RECORDS SUMMARY | 2025-05-31 10:48 | XMS_ITS | Encounter Summary ---
Author Organization [employer] ([place], [place], [place], [place]) Address [address] [place] [address] Care Team Providers Care Film Spooler Name Role Phone Yuan Mccracken MD Primary Care Provider [phone] Encounter Details Date Type Department Care Team (Late st Contact Info) Description 01/22/2021 Transcribed Document [facility] [place] Family [place] [facility] [place] [address] ProviderPerry MD [address] [place] [address] Social History Tobacco Use Types Packs/Day Years Used Date Smoking Tobacco: Never Assessed Comments Unknown Sex and Gender Information Value Date Recorded Sex Assigned at Not on file Legal Sex Female 12:32 PM CDT Gender Identity Not on file Sexual Orientation Not on file documented as of this encounter Miscellaneous Notes * Cerner Conversion Note - Perry ProviderMD - 01/22/2021 5:00 AM CDT Chart Check - Review Order Profile Entered On: 01/22/2021 5:45 EDT Performed On: 01/22/2021 5:00 EDT by Karina Regalado RN-PATIENT CARE BEDSIDE NON-EXEMPT Chart Check Powerplans Initiated/Discontinued as Appropriate : Yes All Active Orders Reviewed : Yes Karina Regalado RN-PATIENT CARE BEDSIDE NON-EXEMPT - 01/22/2021 5:45 EDT documented in this encounter Plan of Treatment Not on file documented as of this encounter Visit Diagnoses Not on filedocumented in this encounter Care Teams Film Spooler Relationship Specialty Start Date End Date Yuan Mccracken MD [address] [place] [phone] PCP - General Family Medicine 09/23/22 documented as of this encounter
--- OUTSIDE RECORDS SUMMARY | 2025-05-31 10:48 | XMS_ITS | Encounter Summary ---
Author Organization [employer] ([place], [place], [place], [place]) Address [address] [place] [address] Care Team Providers Care Toll Service Observer Name Role Phone Yuan Mccracken MD Primary Care Provider [phone] Encounter Details Date Type Department Care Team (Late st Contact Info) Description 02/06/2021 Transcribed Document [facility] Family Medicine [address] [place] [address] ProviderPerry MD [address] [place] [address] Social History Tobacco Use Types Packs/Day Years [...] Performed On: 02/06/2021 16:58 EDT by Mallorie Betancur, Loader Unloader Patient Resource [facility] Provider Status : No Assigned Primary Care Established Provider Name : NO PCP Patient Phone Number : [phone] Patient Insurance Type : Insurance pending Source of Referral : Case management Location of Patient : Case management referral Primary Care Scheduled : Yes Primary Care Scheduled Type : Non [facility] Primary Care Provider Name : THANH HOFFMAN Primary Care Appointment Date/Time : 02/09/2021 14:30 EDT Specialty Care Scheduled : Yes Specialty Type Scheduled1 : [facility] Cardiology Specialty Type Scheduled2 : Urology, CMG Other [facility] Cardiology Provider Name : JAGUAR PIZARRO [facility] Cardiology Appointment Date/Time : 04/08/2021 9:00 EDT Urology Provider Name : JOSE HARE Urology Appointment Date/Timie : 04/08/2021 12:00 EDT CMG Other Provider Name : LGCOLLINS MARY [facility] Other Provider Appointment Date/Time : 03/04/2021 9:45 EDT Qualify for Diabetes and/or Nutrition Referral : No Wound Care Appointment Made : No Why Patient Visited ED- Specialty spent : Other How Patient Arrived at ED : Other Primary Language : Belarusian [facility] Comment : Patient needs follow up appointments. Called and scheduled appointments with Dr. Hoffman, Dr. Hare, Dr. Mcmillan, and Dr. Pizarro. Called patient with appointments. No answer. Mailed appointments. Follow Up Needed : No Mallorie Betancur, Loader Unloader - 02/06/2021 16:58 EDT documented in this encounter Plan of Treatment Not on file documented as of this encounter Visit Diagnoses Not on filedocumented in this encounter Care Teams Toll Service Observer Relationship Specialty Start Date End Date Yuan Mccracken MD [address] [place] [phone] PCP - General Family Medicine 09/23/22 documented as of this encounter
--- OUTSIDE RECORDS SUMMARY | 2025-05-31 10:48 | XMS_ITS | Encounter Summary ---
Author Organization [employer] ([place], [place], [place], [place]) Address [address] [facility] [place] [address] Care Team Providers Care Equipment Operator Name Role Phone Yuan Mccracken MD Primary Care Provider [phone] Encounter Details Date Type Department Care Team (Late st Contact Info) Description 02/03/2021 Transcribed Document [facility] Family [place] [address] ProviderPerry MD [address], [place] [phone] Social History Tobacco Use Types Packs/Day Years [...] Policy Numbers : Insurance 1 Health Plan: [facility] Policy Number: [id number] Authorization Number: Insurance Primary Name : [employer] MEDICAID [id number] Authorization Status-Primary : Apprv contin stay Auth/Referral Contact Name-Primary : [place] Reference Number-Primary : [id number] Number of Days Authorized-Primary : 15 Day(s) Authorized Service Begin Date-Primary : 01/16/2021 EDT Authorized Service End Date-Primary : 01/31/2021 EDT Authorization Comments-Primary : Per [facility] portal all days are approved. Historical Authorization Comments-Primary : Comment 1: Discharge date and summary faxed. (Rochelle Vasquez, Dry Color Tester 02/02/2021 14:32) Comment 2: rec'd call from [employer]- they did receive clinicals and will call back with a decision. (DWIGHT PERALTA, RN-Utilization Review 01/30/2021 10:07) Comment 3: vm to [employer] med[employer] [phone] (covering for Brittney Kelly) asking if she rec'd clinical info faxed on 01/29/21. await call back (DWIGHT PERALTA, RN-Utilization Review 01/30/2021 09:26) Comment 4: CM gave a medicaid ID no. Per [facility] pt has [employer]. Notified [facility] clinicals submitted via [facility] portal and faxed via [employer] from 01/16 to 01/29 for Ip approval [...] DEYA GONZALEZ RN - 02/03/2021 14:24 EDT documented in this encounter Plan of Treatment Not on file documented as of this encounter Visit Diagnoses Not on filedocumented in this encounter Care Teams Equipment Operator Relationship Specialty Start Date End Date Yuan Mccracken MD [facility] [place] [phone] PCP - General Family Medicine 09/23/22 documented as of this encounter
--- OUTSIDE RECORDS SUMMARY | 2025-05-31 10:48 | XMS_ITS | Encounter Summary ---
Author Organization [employer] ([place], [place], [place], [place]) Address [address] [place] [address] Care Team Providers Care Joint Setter Name Role Phone Yuan Mccracken MD Primary Care Provider [phone] Encounter Details Date Type Department Care Team (Late st Contact Info) Description 01/23/2021 Transcribed Document [facility] Family Medicine [address] [place] [address] ProviderPerry MD [address] [place] [phone] Social History Tobacco Use Types Packs/Day Years Used Date Smoking Tobacco: Never Assessed Comments Unknown Sex and Gender Information Value Date Recorded Sex Assigned at Not on file Legal Sex Female 12:32 PM CDT Gender Identity Not on file Sexual Orientation Not on file documented as of this encounter Miscellaneous Notes * Cerner Conversion Note - Perry ProviderMD - 01/23/2021 6:42 PM CDT Event Note [...] on filedocumented in this encounter Care Teams Joint Setter Relationship Specialty Start Date End Date Yuan Mccracken MD [facility] [place] [address] PCP - General Family Medicine 09/23/22 documented as of this encounter
--- OUTSIDE RECORDS SUMMARY | 2025-05-31 10:48 | XMS_ITS | Encounter Summary ---
Author Organization [employer] ([place], [place], [place], [place]) Address [address] [place] [address] Care Team Providers Care Cork Sorter Name Role Phone Yuan Mccracken MD Primary Care Provider [phone] Encounter Details Date Type Department Care Team (Late st Contact Info) Description 01/30/2021 Transcribed Document [facility] [place] [facility] [place] [address] ProviderPerry MD [address] [place] [address] Social History Tobacco Use Types Packs/Day Years Used Date Smoking Tobacco: Never Assessed Comments Unknown Sex and Gender Information Value Date Recorded Sex Assigned at Not on file Legal Sex Female 12:32 PM CDT Gender Identity Not on file Sexual Orientation Not on file documented as of this encounter Miscellaneous Notes * Cerner Conversion Note - Historical ProviderMD - 01/30/2021 11:26 AM CDT Attempt to Treat, PT Entered On: 01/30/2021 12:14 EDT Performed On: 01/30/2021 11:26 EDT by CESIA WILSON PT Attempt to Treat Unable to Treat Due To : Patient on hold Inability to Treat Comment : BLE Surepress still remains intact; however, anticipated disch tomorrow in am 6/12 and offered if needed to be changed today; pt stating will await disch tomorrow and anticipate BLE Surepress/dressing change once arriving to new faciltiy/rehab CESIA WILSON, PT - 01/30/2021 12:13 EDT documented in this encounter Plan of Treatment Not on file documented as of this encounter Visit Diagnoses Not on filedocumented in this encounter Care Teams Cork Sorter Relationship Specialty Start Date End Date Yuan Mccracken MD [address] [place] [phone] PCP - General Family Medicine 09/23/22 documented as of this encounter
--- OUTSIDE RECORDS SUMMARY | 2025-05-31 10:48 | XMS_ITS | Encounter Summary ---
Author Organization [employer] ([place], [place], [place], [place]) Address [address] [place] [address] Care Team Providers Care Shotgun Shell Loading Machine Operator Name Role Phone Yuan Mccracken MD Primary Care Provider [phone] Encounter Details Date Type Department Care Team (Late st Contact Info) Description 01/29/2021 Transcribed Document [facility] [place] [facility] [place] [address] ProviderPerry MD [address] [place] [address] Social History Tobacco Use Types Packs/Day Years Used Date Smoking Tobacco: Never Assessed Comments Unknown Sex and Gender Information Value Date Recorded Sex Assigned at Not on file Legal Sex Female 12:32 PM CDT Gender Identity Not on file Sexual Orientation Not on file documented as of this encounter Miscellaneous Notes * Cerner Conversion Note - Perry ProviderMD - 01/29/2021 5:00 AM CDT Chart Check [...] on filedocumented in this encounter Care Teams Shotgun Shell Loading Machine Operator Relationship Specialty Start Date End Date Yuan Mccracken MD [address] [place] [phone] PCP - General Family Medicine 09/23/22 documented as of this encounter
--- OUTSIDE RECORDS SUMMARY | 2025-05-31 10:48 | XMS_ITS | Encounter Summary ---
Author Organization [employer] ([place], [place], [place], [place]) Address [address] [facility] [place] [address] Care Team Providers Care Block And Case Maker Name Role Phone Yuan Mccracken MD Primary Care Provider [phone] Encounter Details Date Type Department Care Team (Late st Contact Info) Description 01/29/2021 Transcribed Document [facility] Family Medicine [address] [place] [address] ProviderPerry MD [address] [place], [place] [phone] Social History Tobacco Use Types Packs/Day Years Used Date Smoking Tobacco: Never Assessed Comments Unknown Sex and Gender Information Value Date Recorded Sex Assigned at Not on file Legal Sex Female 12:32 PM CDT Gender Identity Not on file Sexual Orientation Not on file documented as of this encounter Miscellaneous Notes * Cerner Conversion Note - Perry ProviderMD - 01/29/2021 2:17 PM CDT UM Authorization Entered On: 01/29/2021 14:18 EDT Performed On: 01/29/2021 14:17 EDT by CARMEN MARLOW RN Primary Insurance Authorization Authorization and Policy Numbers : Insurance 1 Health Plan: MEDICAID PENDING Policy Number: [id number] Authorization Number: Insurance Primary Name : [facility] [id number] Authorization Status-Primary : Awaiting callback Reference Number-Primary : Pend ref # [id number]. Authorized Service Begin Date-Primary : 01/16/2021 EDT Historical Authorization Comments-Primary : Comment 1: CM gave a medicaid ID no. Per [facility] pt has [facility]. Notified [facility] clinicals submitted via [facility] portal and faxed via [employer] from 01/16 to 01/29 for Ip approval (CARMEN MARLOW RN 01/29/2021 14:06) Comment 2: MEDICAID PENDING (FABIAN DWIGHT D, RN-Utilization Review 01/28/2021 08:04) Comment 3: MEDICAID PENDING (FABIAN DWIGHT D, RN-Utilization Review 01/27/2021 08:41) Comment 4: MEDICAID PENDING (PERALTA, DWIGHT D, RN-Utilization Review 01/26/2021 08:45) Comment 5: MEDICAID PENDING (PERALTA, DWIGHT D, RN-Utilization Review 01/23/2021 09:42) Comment 6: SELF PAY (FABIAN DWIGHT D, RN-Utilization Review 01/22/2021 08:29) Comment 7: SELF PAY (DWIGHT PERALTA D, RN-Utilization Review 01/21/2021 08:19) Comment 8: Self pay at the time of review (CARMEN MARLOW RN 01/20/2021 13:51) CARMEN MARLOW RN - 01/29/2021 14:17 EDT documented in this encounter Plan of Treatment Not on file documented as of this encounter Visit Diagnoses Not on filedocumented in this encounter Care Teams Block And Case Maker Relationship Specialty Start Date End Date Yuan Mccracken MD [address] [place] [phone] PCP - General Family Medicine 09/23/22 documented as of this encounter
--- OUTSIDE RECORDS SUMMARY | 2025-05-31 10:48 | XMS_ITS | Clinical Summary ---
Author Organization Healthcare Address [address] [place] [address] Care Team Providers Care Botany Professor Name Role Phone Yuan Mccracken MD Primary Care Provider [phone] Allergies No known active allergies Social History [...] [facility]-Depression Screening 1960 [facility]-Hepatitis C Screening 1960 [facility]-/Child/Adol SDOH Screenings 1960 [facility]-Obesity Intervention 1964 [facility]- [...] - Risk 60-74 years 1-dose series) 2018 [id number] Vaccine ( - 2024- season) 2025 02/18/2022, 06/05/2021, 04/22/2021 [facility]-Influenza Vaccine (#1) 2025 HPV Vaccines Aged Out No longer [...] to complete this topic Insurance Care Teams Botany Professor Relationship Specialty Start Date End Date Yuan Mccracken MD [address] [phone] (work) PCP - General 09/13/22
--- OUTSIDE RECORDS SUMMARY | 2025-05-31 10:48 | XMS_ITS | Encounter Summary ---
Author Organization [employer] ([place], [place], [place], [place]) Address [address] [place] [address] Care Team Providers Care Parimutuel Ticket Checker Name Role Phone Yuan Mccracken MD Primary Care Provider [phone] Encounter Details Date Type Department Care Team (Late st Contact Info) Description 03/04/2021 Transcribed Document [facility] Family Medicine [address] [place] [address] ProviderPerry MD [address] [place] [address] Social History Tobacco Use Types Packs/Day Years Used Date Smoking Tobacco: Never Assessed Comments Unknown Sex and Gender Information Value Date Recorded Sex Assigned at Not on file Legal Sex Female 12:32 PM CDT Gender Identity Not on file Sexual Orientation Not on file documented as of this encounter Miscellaneous Notes * Cerner Conversion Note - Perry ProviderMD - 03/04/2021 12:17 AM CDT [address] [address] OPERATIVE REPORT PATIENT IDENTIFICATION: CHANI VELASQUEZ (Female - 1960) ACCOUNT / UNIT NUMBER: [id number] / [id number] PRIMARY CARE PHYSICIAN: JEFF ROBBINS PATIENT LOCATION: [facility] [place] AD[place] DATE / TIME: 03/03/21 1411 DISCHARGE DATE / TIME: DICTATED: 03/03/212016 by DHEERAJ GONZALEZ TRANSCRIBED: 03/03/212108 by FRANCISCO IMPORTED: 03/03/212118 CC: JEFF ROBBINS; DHEERAJ GONZALEZ\R\ DATE OF PROCEDURE: 03/03/2021 SURGEON: Dheeraj Gonzalez MD PREOPERATIVE DIAGNOSES: Left ureteral stone, left hydronephrosis, left renal colic. POSTOPERATIVE DIAGNOSES: Left ureteral stone, left hydronephrosis, left renal colic. PROCEDURES PERFORMED: 1. Left ureteroscopy laser and basket extraction of stone. 2. Left Pyloscopy with lazer of stones 3. Retrograde pyelogram with fluoroscopic dilation distal ureter. 4. Left stent. ANESTHESIA: LMA. HISTORY: Chani Velasquez is a 60-year-old white female, snf resident, who had CT scan showing left-sided [...] see her next week for stent removal. /[id number] Dictated By: DHEERAJ GONZALEZ E-Signed By: , RAFITA 16 08 [\R\ rep ct labl] [\R\ rep ct ivnm] Medical Disclaimer: This report is to be considered preliminary until reviewed and signed. documented in this encounter Plan of Treatment Not on file documented as of this encounter Visit Diagnoses Not on filedocumented in this encounter Care Teams Parimutuel Ticket Checker Relationship Specialty Start Date End Date Yuan Mccracken MD [address] [place] [phone] PCP - General Family Medicine 09/23/22 documented as of this encounter
--- OUTSIDE RECORDS SUMMARY | 2025-05-31 10:48 | XMS_ITS | Encounter Summary ---
Author Organization [employer] ([place], [place], [place], [place]) Address [address] [place] [address] Care Team Providers Care Restaurant Area Director Name Role Phone Yuan Mccracken MD Primary Care Provider [phone] Encounter Details Date Type Department Care Team (Late st Contact Info) Description 01/23/2021 Transcribed Document [facility] [place] [facility] [place] [address] ProviderPerry MD [address] [place] [id number] Social History Tobacco Use Types Packs/Day Years [...] - Medical Apixaban 5 mg, Oral, Tab, [id number], Routine, Start 01/21/21 10:00:00 EDT, 01/21/21 9:43:00 [...] PRN Eliquis, 5 mg= 1 Tab, Oral, [id number] Lac-Hydrin 12% topical lotion, 1 Application, Topical, BID Lasix, 20 mg= 1 Tab, Oral, Daily magnesium sulfate, 2 Gram= 50 mL, IV Piggyback, Daily, PRN magnesium sulfate, 2 Gram= 50 mL, IV Piggyback, Q2H, PRN metoprolol tartrate, 50 mg= 1 Tab, Oral, BID MiraLax, 17 Gram= 1 Packet, Oral, Daily, PRN Mucinex, 600 mg= 1 Tab, Oral, BID, PRN nystatin, [id number] Units= 5 mL, Swish and Swallow , [...] Man 10 % (Low) 01/23/2021 06:11 EDT D[place]y Percent Man 4 % 01/23/2021 06:11 EDT Eos Percent Man 1 % 01/23/2021 06:11 EDT Baso Percent Man 1 % 01/23/2021 06:11 EDT Canby Percent Man 2 % (High) 01/23/2021 06:11 EDT RBC Morphology Abnormal 01/23/2021 06:11 EDT Anisocytosis 1+ (Abnormal) 01/23/2021 06:11 EDT Poikilocytosis 1+ (Abnormal) 01/23/2021 06:11 EDT Polychromasia 1+ (Abnormal) 01/23/2021 06:11 EDT Hypochromia 1+ (Abnormal) 01/23/2021 06:11 EDT Stomatocytes 1+ (Abnormal) 01/23/2021 06:[address] Estimate Increased (Abnormal) 01/23/2021 06:11 EDT Slide Review Add Diff 01/23/2021 06:11 EDT Electronically signed by Carlotta, [facility] Conversion Chief Nursing Officer Cerner at 12/07/2022 6:15 PM CDT documented in this encounter Plan of Treatment Not on file documented as of this encounter Visit Diagnoses Not on filedocumented in this encounter Care Teams Restaurant Area Director Relationship Specialty Start Date End Date Yuan Mccracken MD [address] [place] [phone] PCP - General Family Medicine 09/23/22 documented as of this encounter
--- OUTSIDE RECORDS SUMMARY | 2025-05-31 10:48 | XMS_ITS | Encounter Summary ---
Author Organization [employer] ([place], [place], [place], [place]) Address [address] [place] [address] Care Team Providers Care Retail Assistant Name Role Phone Yuan Mccracken MD Primary Care Provider [phone] Encounter Details Date Type Department Care Team (Late st Contact Info) Description 01/30/2021 Transcribed Document [facility] [place] Family Medicine [facility] [place] [address] ProviderPerry MD [address] [place] [address] Social History Tobacco Use Types Packs/Day [...] Performed On: 01/30/2021 9:26 EDT by DWIGHT PERALTA RN-Utilization Review Primary Insurance Authorization Authorization and Policy Numbers : Insurance 1 Health Plan: [facility] Policy Number: [id number] Authorization Number: Insurance Primary Name : [facility] MEDICAID [id number] Authorization Status-Primary : Awaiting callback Reference Number-Primary : Pend ref # [id number]. Authorized Service Begin Date-Primary : 01/16/2021 EDT Authorization Comments-Primary : vm to [facility] medicaid [phone] (covering for Brittney Kelly) asking if she rec'd clinical info faxed on 01/29/21. await call back Historical Authorization Comments-Primary : Comment 1: CM gave a medicaid ID no. Per [facility] pt has [facility]. Notified [facility] clinicals submitted via [facility] portal and faxed via [employer] from 01/16 [...] on filedocumented in this encounter Care Teams Retail Assistant Relationship Specialty Start Date End Date Yuan Mccracken MD [place] [phone] PCP - General Family Medicine 09/23/22 documented as of this encounter
--- OUTSIDE RECORDS SUMMARY | 2025-05-31 10:48 | XMS_ITS | Encounter Summary ---
Author Organization [employer] ([place], [place], [place], [place]) Address [address] [place] [address] Care Team Providers Care Safety Person Name Role Phone Yuan Mccracken MD Primary Care Provider [phone] Encounter Details Date Type Department Care Team (Late st Contact Info) Description 02/06/2021 Transcribed Document [facility] [place] [address] [place] [address] ProviderPerry MD [address] [place] [address] Social History Tobacco Use Types Packs/Day [...] these instructions at home: Medicines ??? Take yvxy-tju-kcjansw and prescription medicines only as told by [...] provider. Document Revised: 12/28/2018 Document Reviewed: 12/28/2018 [employer] Patient Education ? 2020 [employer]. Electronically signed by Gayle Laguerre Conversion Vice President Consulting Services Cerner at 12/07/2022 6:24 PM CDT documented in this encounter Plan of Treatment Not on file documented as of this encounter Visit Diagnoses Not on filedocumented in this encounter Care Teams Safety Person Relationship Specialty Start Date End Date Yuan Mccracken MD [address] [place] [phone] PCP - General Family Medicine 09/23/22 documented as of this encounter
--- OUTSIDE RECORDS SUMMARY | 2025-05-31 10:48 | XMS_ITS | Encounter Summary ---
Author Organization [employer] ([place], [place], [place], [place]) Address [address] [place] [address] Care Team Providers Care Can Worker Name Role Phone Yuan Mccracken MD Primary Care Provider [phone] Encounter Details Date Type Department Care Team (Late st Contact Info) Description 01/31/2021 Transcribed Document [facility] [place] [facility] [place] [address] ProviderPerry MD [address] [place] [address] Social History Tobacco Use Types Packs/Day Years Used Date Smoking Tobacco: Never Assessed Comments Unknown Sex and Gender Information Value Date Recorded Sex Assigned at Not on file Legal Sex Female 12:32 PM CDT Gender Identity Not on file Sexual Orientation Not on file documented as of this encounter Miscellaneous Notes * Cerner Conversion Note - Perry ProviderMD - 01/31/2021 5:00 AM CDT Chart Check - Review Order Profile Entered On: 01/31/2021 6:33 EDT Performed On: 01/31/2021 5:00 EDT by ANTONIO OTERO RN Chart Check Powerplans Initiated/Discontinued as Appropriate : Yes All Active Orders Reviewed : Yes ANTONIO OTERO RN - 01/31/2021 6:33 EDT documented in this encounter Plan of Treatment Not on file documented as of this encounter Visit Diagnoses Not on filedocumented in this encounter Care Teams Can Worker Relationship Specialty Start Date End Date Yuan Mccracken MD [address] [place] [address] PCP - General Family Medicine 09/23/22 documented as of this encounter
--- OUTSIDE RECORDS SUMMARY | 2025-05-31 10:48 | XMS_ITS | Encounter Summary ---
Author Organization [employer] ([place], [place], [place], [place]) Address [address] [place] [address] Care Team Providers Care Wrapper Off Name Role Phone Yuan Mccracken MD Primary Care Provider [phone] Encounter Details Date Type Department Care Team (Late st Contact Info) Description 01/30/2021 Transcribed Document [facility] [place] [facility] [place] [address] ProviderPerry MD [address] [place] [address] Social History Tobacco Use Types Packs/Day Years Used Date Smoking Tobacco: Never Assessed Comments Unknown Sex and Gender Information Value Date Recorded Sex Assigned at Not on file Legal Sex Female 12:32 PM CDT Gender Identity Not on file Sexual Orientation Not on file documented as of this encounter Miscellaneous Notes * Cerner Conversion Note - Perry ProviderMD - 01/30/2021 2:00 AM CDT Tuberculosis Specialist Details Entered On: 01/30/2021 4:24 EDT Performed [...] on filedocumented in this encounter Care Teams Wrapper Off Relationship Specialty Start Date End Date Yuan Mccracken MD [address] [place] [phone] PCP - General Family Medicine 09/23/22 documented as of this encounter
--- OUTSIDE RECORDS SUMMARY | 2025-05-31 10:48 | XMS_ITS | Encounter Summary ---
Author Organization [employer] ([place], [place], [place], [place]) Address [address] [place] [address] Care Team Providers Care Components Engineer Name Role Phone Yuan Mccracken MD Primary Care Provider [phone] Encounter Details Date Type Department Care Team (Late st Contact Info) Description 01/23/2021 Transcribed Document [facility] [place] Family Medicine [facility] [place] [address] ProviderPerry MD [address] [place] [address] Social History Tobacco Use Types Packs/Day Years Used Date Smoking Tobacco: Never Assessed Comments Unknown Sex and Gender Information Value Date Recorded Sex Assigned at Not on file Legal Sex Female 12:32 PM CDT Gender Identity Not on file Sexual Orientation Not on file documented as of this encounter Miscellaneous Notes * Cerner Conversion Note - Historical ProviderMD - 01/23/2021 1:06 PM CDT Attempt to Treat, PT Entered On: 01/23/2021 13:07 EDT Performed On: 01/23/2021 13:06 EDT by TODD ENRIQUEZ PTA Attempt to Treat Unable to Treat Due To : Patient Refusal Inability to Treat Comment : pt refused due to fatigue, will try back as time permits Notification : TODD Gasca PTA - 01/23/2021 13:06 EDT documented in this encounter Plan of Treatment Not on file documented as of this encounter Visit Diagnoses Not on filedocumented in this encounter Care Teams Components Engineer Relationship Specialty Start Date End Date Yuan Mccracken MD [facility] [place] [address] PCP - General Family Medicine 09/23/22 documented as of this encounter
--- OUTSIDE RECORDS SUMMARY | 2025-05-31 10:48 | XMS_ITS | Encounter Summary ---
Author Organization [employer] ([place], [place], [place], [place]) Address [address] [place] [address] Care Team Providers Care Patient Relations Specialist Name Role Phone Yuan Mccracken MD Primary Care Provider [phone] Encounter Details Date Type Department Care Team (Late st Contact Info) Description 01/30/2021 Transcribed Document [facility] [place] [facility] [place] [address] ProviderPerry MD [address] [place] [phone] Social History Tobacco Use Types Packs/Day Years [...] RT_Q6H, PRN: Wheezing Eliquis: 5 mg, Oral, [id number] Lac-Hydrin 12% topical lotion: 1 Application, Topical, [...] mg tab 5 mg 1 Tab, Oral, [id number] doxycycline hyclate 100 mg cap 100 mg [...] Problem list: Medical Obesity / SNOMED CT 7610149843 / Confirmed, Active Problems (1) Obesity Physical Examination VS/Measurements Vitals Signs (last 24 hrs) Last Charted Minimum Maximum Temp 98.2 (JAN 30 06:22) 98.2 (JAN 30 06:22) 98.8 (JAN 29 14:00) Apical HR 77 (JAN 30 09:29) 77 (JAN 29 22:21) 77 (JAN 29 22:21) Mon HR 67 (JAN 30 09:14) 66 (JAN 29 16:25) 113 (JAN 29 22:43) Resp Rate 16 (JAN 30:14) 16 (JAN 29 14:00) 18 (JAN 29 [...] EDT Height Source Stated Height Entry Format Shonto Height/Length, MALIAN (ft) 5 ft Height/Length MALIAN 4 Inch CLINICALHEIGHT 162.56 cm Routine Weight Source Bed scale Routine Weight Entry Format Shonto Routine Weight, Pounds 267 lb Routine Weight, [...] (Last four charted values) WBC 8.3 (JAN 11) 10.0 (TOM 10) 8.6 (TOM 09) H 10.8 (JAN 08) HB L 8.1 (TOM 11) L [...] 06) 28 (TOM 05) ALK P 58 (JAN 10) 56 (TOM 08) 53 (TOM 06) [...] renal funtion - No emergent need of GSA COORDINATOR. Electronically signed by Gayle Laguerre Conversion Information Systems Operator Cerner at 12/07/2022 6:22 PM CDT documented in this encounter Plan of Treatment Not on file documented as of this encounter Visit Diagnoses Not on filedocumented in this encounter Care Teams Patient Relations Specialist Relationship Specialty Start Date End Date Yuan Mccracken MD [address] [place] [phone] PCP - General Family Medicine 09/23/22 documented as of this encounter
--- OUTSIDE RECORDS SUMMARY | 2025-05-31 10:48 | XMS_ITS | Encounter Summary ---
Author Organization [employer] ([place], [place], [place], [place]) Address [address] [place] [address] Care Team Providers Care Automotive Worker Name Role Phone Yuan Mccracken MD Primary Care Provider [phone] Encounter Details Date Type Department Care Team (Late st Contact Info) Description 01/23/2021 Transcribed Document [facility] [place] [facility] [place] [address] ProviderPerry MD [address] [place] [phone] Social History Tobacco Use Types Packs/Day Years [...] Nunes MD - 01/23/2021 2:00 AM CDT Fisher Trot Line Details Entered On: 01/23/2021 5:35 EDT Performed [...] - 01/23/2021 5:35 EDT Electronically signed by Mamadou Laguerre Conversion Associate Product Integrity Engineer Cerner at 12/07/2022 6:20 PM CDT documented in this encounter Plan of Treatment Not on file documented as of this encounter Visit Diagnoses Not on filedocumented in this encounter Care Teams Automotive Worker Relationship Specialty Start Date End Date Yuan Mccracken MD [address] [place] [phone] PCP - General Family Medicine 09/23/22 documented as of this encounter
--- OUTSIDE RECORDS SUMMARY | 2025-05-31 10:48 | XMS_ITS | Encounter Summary ---
Author Organization [employer] ([place], [place], [place], [place]) Address [address] [facility] [place] [address] Care Team Providers Care Cobol Developer Name Role Phone Yuan Mccracken MD Primary Care Provider [phone] Encounter Details Date Type Department Care Team (Late st Contact Info) Description 01/23/2021 Transcribed Document [facility] [place] [facility] [place] [address] ProviderPerry MD [address] [place] [address] Social History Tobacco Use Types Packs/Day Years Used Date Smoking Tobacco: Never Assessed Comments Unknown Sex and Gender Information Value Date Recorded Sex Assigned at Not on file Legal Sex Female 12:32 PM CDT Gender Identity Not on file Sexual Orientation Not on file documented as of this encounter Miscellaneous Notes * Cerner Conversion Note - Perry ProviderMD - 01/23/2021 9:42 AM CDT UM Authorization Entered On: 01/23/2021 9:42 EDT Performed On: 01/23/2021 9:42 EDT by DWIGHT PERALTA RN-Utilization Review Primary Insurance Authorization Authorization and Policy Numbers : Insurance 1 Health Plan: MEDICAID PENDING Policy Number: [id number] Authorization Number: Insurance Primary Name : Self-pay [...] - 01/23/2021 9:42 EDT Electronically signed by [facility] Conversion Manager Financial Reporting Cerner at 12/07/2022 6:19 PM CDT documented in this encounter Plan of Treatment Not on file documented as of this encounter Visit Diagnoses Not on filedocumented in this encounter Care Teams Cobol Developer Relationship Specialty Start Date End Date Yuan Mccracken MD [address] [place] [phone] PCP - General Family Medicine 09/23/22 documented as of this encounter
--- OUTSIDE RECORDS SUMMARY | 2025-05-31 10:48 | XMS_ITS | Encounter Summary ---
Author Organization [employer] ([place], [place], [place], [place]) Address [address] [place] [address] Care Team Providers Care Senior Catering Sales Manager Name Role Phone Yuan Mccracken MD Primary Care Provider [phone] Encounter Details Date Type Department Care Team (Late st Contact Info) Description 01/29/2021 Transcribed Document [facility] [place] [address] [place] [address] ProviderPerry MD [address] [place], [place] [phone] Social History Tobacco Use Types Packs/Day Years [...] 1 Health Plan: MEDICAID PENDING Policy Number: [id number] Authorization Number: Insurance Primary Name : [employer] Authorization Status-Primary : Awaiting callback Reference Number-Primary : Pend ref # [id number]. Authorized Service Begin Date-Primary : 01/16/2021 EDT Authorization Comments-Primary : CM gave a medicaid ID no. Per [facility] pt has [facility]. Notified [facility] clinicals submitted via [facility] portal and faxed via doForms from 01/16 to 01/29 for Ip approval Historical Authorization Comments-Primary : Comment 1: MEDICAID PENDING (FABIAN DWIGHT D, RN-Utilization Review 01/28/2021 08:04) Comment 2: MEDICAID PENDING (PERALTA, DWIGHT D, RN-Utilization Review 01/27/2021 08:41) Comment 3: MEDICAID PENDING (PERALTA, DWIGHT D, RN-Utilization Review [...] filedocumented in this encounter Care Teams Senior Catering Sales Manager Relationship Specialty Start Date End Date Yuan Mccracken MD [address] [place] [phone] PCP - General Family Medicine 09/23/22 documented as of this encounter
--- OUTSIDE RECORDS SUMMARY | 2025-05-31 10:48 | XMS_ITS | Encounter Summary ---
Author Organization [employer] ([place], [place], [place], [place]) Address [address] [place] [address] Care Team Providers Care Manager Of Construction Name Role Phone Yuan Mccracken MD Primary Care Provider [phone] Encounter Details Date Type Department Care Team (Late st Contact Info) Description 01/22/2021 Transcribed Document [facility] [place] [facility] [place] [address] ProviderPerry MD [address] [place] [address] Social History Tobacco Use Types Packs/Day Years Used Date Smoking Tobacco: Never Assessed Comments Unknown Sex and Gender Information Value Date Recorded Sex Assigned at Not on file Legal Sex Female 12:32 PM CDT Gender Identity Not on file Sexual Orientation Not on file documented as of this encounter Miscellaneous Notes * Cerner Conversion Note - Perry ProviderMD - 01/22/2021 1:59 PM CDT Patient: CHANI [...] - Medical Apixaban 5 mg, Oral, Tab, [id number], Routine, Start 01/21/21 10:00:00 EDT, 01/21/21 9:43:00 [...] PRN Eliquis, 5 mg= 1 Tab, Oral, [id number] Lac-Hydrin 12% topical lotion, 1 Application, Topical, BID Lasix, 20 mg= 1 Tab, Oral, Daily magnesium sulfate, 2 Gram= 50 mL, IV Piggyback, Daily, PRN magnesium sulfate, 2 Gram= 50 mL, IV Piggyback, Q2H, PRN metoprolol tartrate, 50 mg= 1 Tab, Oral, BID MiraLax, 17 Gram= 1 Packet, Oral, Daily, PRN Mucinex, 600 mg= 1 Tab, Oral, BID, PRN nystatin, [id number] Units= 5 mL, Swish and Swallow , [...] ALYC # 2 K/uL 01/22/2021 06:25 EDT Wilkin Percent Man 2 % (Low) 01/22/2021 06:25 EDT Eos Percent Man 2 % 01/22/2021 06:25 EDT Myelo Percent Man 2 % (High) 01/22/2021 06:25 EDT RBC Morphology Abnormal 01/22/2021 06:25 EDT Anisocytosis 1+ (Abnormal) 01/22/2021 06:25 EDT Poikilocytosis 1+ (Abnormal) 01/22/2021 06:25 EDT Hypochromia 1+ (Abnormal) 01/22/2021 06:[address] Estimate Adequate 01/22/2021 06:25 EDT Slide Review Add Diff 01/22/2021 06:25 EDT documented in this encounter Plan of Treatment Not on file documented as of this encounter Visit Diagnoses Not on filedocumented in this encounter Care Teams Manager Of Construction Relationship Specialty Start Date End Date Yuan Mccracken MD [address] [place] [phone] PCP - General Family Medicine 09/23/22 documented as of this encounter
--- OUTSIDE RECORDS SUMMARY | 2025-05-31 10:48 | XMS_ITS | Encounter Summary ---
Author Organization [employer] ([place], [place], [place], [place]) Address [address] [place] [address] Care Team Providers Care Sweep Molder Name Role Phone Yuan Mccracken MD Primary Care Provider [phone] Encounter Details Date Type Department Care Team (Late st Contact Info) Description 01/23/2021 Transcribed Document [facility] [place] [facility] [place] [address] ProviderPerry MD [address] [place] [address] Social History Tobacco Use Types Packs/Day Years Used Date Smoking Tobacco: Never Assessed Comments Unknown Sex and Gender Information Value Date Recorded Sex Assigned at Not on file Legal Sex Female 12:32 PM CDT Gender Identity Not on file Sexual Orientation Not on file documented as of this encounter Miscellaneous Notes * Cerner Conversion Note - Perry ProviderMD - 01/23/2021 4:00 AM CDT Height and Weight, Routine Entered On: 01/23/2021 5:35 EDT Performed On: 01/23/2021 4:00 EDT by Karina Regalado RN-PATIENT CARE BEDSIDE NON-EXEMPT Height and Weight, Routine Routine Weight Source : Bed scale Routine Weight Entry Format : [place] Routine Weight, Pounds : 283 lb Routine Weight, Ounces : 9 oz Routine Weight Calculation : 128.89 kg Height Source : Stated Height Entry Format : [place] Height, Feet : 5 ft Height, Inches : 4 Inch Clinical Height : 162.56 cm Body Surface Area (BSA), Routine : 2.27 m2 Body Mass Index (BMI), Routine : 48.77 kg/m2 Karina Regalado RN-PATIENT CARE BEDSIDE NON-EXEMPT - 01/23/2021 5:35 EDT Electronically signed by Carlotta [facility] Conversion Medical Lab Specialist Cerner at 12/07/2022 6:09 PM CDT documented in this encounter Plan of Treatment Not on file documented as of this encounter Visit Diagnoses Not on filedocumented in this encounter Care Teams Sweep Molder Relationship Specialty Start Date End Date Yuan Mccracken MD [address] [place] [phone] PCP - General Family Medicine 09/23/22 documented as of this encounter
--- OUTSIDE RECORDS SUMMARY | 2025-05-31 10:48 | XMS_ITS | Encounter Summary ---
Author Organization [employer] ([place], [place], [place], [place]) Address [address] [place] [address] Care Team Providers Care It Security Consulting Director Name Role Phone Yuan Mccracken MD Primary Care Provider [phone] Encounter Details Date Type Department Care Team (Late st Contact Info) Description 01/31/2021 Transcribed Document [facility] [place] [facility] [place] [address] ProviderPerry MD [address] [place] [phone] Social History Tobacco Use Types Packs/Day Years [...] RT_Q6H, PRN: Wheezing Eliquis: 5 mg, Oral, [id number] Lac-Hydrin 12% topical lotion: 1 Application, Topical, [...] 5 mg oral tablet: 1 Tab, Oral, [id number], 0 Refill(s) Lac-Hydrin 12% topical lotion: 1 [...] mg tab 5 mg 1 Tab, Oral, [id number] doxycycline hyclate 100 mg cap 100 mg [...] Problem list: Medical Obesity / SNOMED CT [id number] / Confirmed, Active Problems (1) Obesity Physical [...] charted values) WBC 8.3 (JAN 30) 10.0 (TOM 10) 8.6 (TOM 09) H [...] 8.3 (TOM 10) L 8.0 (TOM 09) Lactic 2.0 (JANUARY 19) C 2.5 [...] 08) L 1.5 (TOM 06) L 1.5 (JAN 24) Troponin <0.015 (JANUARY 16) . JAN 31 [...] renal funtion - No emergent need of TREATMENT SPECIALIST. - Increase protein in diet. Follow up with [facility] in 2-3 weeks with renal function, UA and UPCR Electronically signed by [facility], [facility] Conversion Day Care Supervisor Cerner at 12/07/2022 6:25 PM CDT documented in this encounter Plan of Treatment Not on file documented as of this encounter Visit Diagnoses Not on filedocumented in this encounter Care Teams It Security Consulting Director Relationship Specialty Start Date End Date Yuan Mccracken MD [facility] [place] [phone] PCP - General Family Medicine 09/23/22 documented as of this encounter
--- OUTSIDE RECORDS SUMMARY | 2025-05-31 10:48 | XMS_ITS | Encounter Summary ---
Author Organization [employer] ([place], [place], [place], [place]) Address [address] [place] [address] Care Team Providers Care Patient Account Liaison Name Role Phone Yuan Mccracken MD Primary Care Provider Encounter Details Date Type Department Care Team (Late st Contact Info) Description 01/30/2021 Transcribed Document [facility] [place] [facility] [place] [address] ProviderPerry MD [address] [place] [address] Social History Tobacco Use Types Packs/Day Years Used Date Smoking Tobacco: Never Assessed Comments Unknown Sex and Gender Information Value Date Recorded Sex Assigned at Not on file Legal Sex Female 12:32 PM CDT Gender Identity Not on file Sexual Orientation Not on file documented as of this encounter Miscellaneous Notes * [employer]ner Conversion Note - Perry ProviderMD - 01/30/2021 5:00 PM CDT Chart Check - Review Order Profile Entered On: 01/30/2021 18:41 EDT Performed On: 01/30/2021 17:00 EDT by Hong Jauregui, RN Chart Check Powerplans Initiated/Discontinued as Appropriate : Yes All Active Orders Reviewed : Yes Hong Jauregui RN - 01/30/2021 18:41 EDT documented in this encounter Plan of Treatment Not on file documented as of this encounter Visit Diagnoses Not on filedocumented in this encounter Care Teams Patient Account Liaison Relationship Specialty Start Date End Date Yuan Mccracken MD [address] [place] [phone] PCP - General Family Medicine 09/23/22 documented as of this encounter
--- OUTSIDE RECORDS SUMMARY | 2025-05-31 10:48 | XMS_ITS | Encounter Summary ---
Author Organization [employer] ([place], [place], [place], [place]) Address [address] [place] [address] Care Team Providers Care Recycling Operations Manager Name Role Phone Yuan Mccracken MD Primary Care Provider [phone] Encounter Details Date Type Department Care Team (Late st Contact Info) Description 01/29/2021 Transcribed Document [facility] [place] Family Medicine [facility] [place] [address] ProviderPerry MD [address] [place] [phone] Social History Tobacco Use Types Packs/Day Years [...] RT_Q6H, PRN: Wheezing Eliquis: 5 mg, Oral, [id number] Lac-Hydrin 12% topical lotion: 1 Application, Topical, [...] mg tab 5 mg 1 Tab, Oral, [id number] doxycycline hyclate 100 mg cap 100 mg [...] Problem list: Medical Obesity / SNOMED CT 9658673025 / Confirmed, Active Problems (1) Obesity Physical [...] SBP 115 (JAN 29 05:58) 107 (JAN 28:32) 136 (JAN 28 13:02) DBP 69 (JAN 29 05:58) 65 (JAN 28 17:57) 81 (JAN 28 13:02) MAP 86 (JAN 29 05:58) 77 (JAN 28 17:57) 86 (JAN 29 05:58) SpO2 96 (JAN 29 08:28) 96 (JAN 28 15:32) 99 (JAN 28:02) , Measurements from flowsheet : Measurements 01/29/2021 4:00 EDT Height Source Stated Height Entry Format [place] Height/Length, TURKISH (ft) 5 ft Height/Length TURKISH 4 Inch CLINICALHEIGHT 162.56 cm Routine Weight Source Bed scale Routine Weight Entry Format [place] Routine Weight, Pounds 267 lb Routine Weight, Ounces 5 oz Routine Weight Calculation 121.51 kg Body Mass Index (BMI), Routine 45.98 kg/m2 Body Surface Area (BSA), Routine 2.21 m2 01/28/2021 5:00 EDT Routine Weight Source Bed scale Routine Weight Entry Format Beatrice Routine Weight, Pounds 281 lb Routine Weight [...] 78 (TOM 10) 81 (TOM 09) 80 (TMO 08) 81 (TOM 07) Ca L 8.3 (TOM 10) L 8.0 (TOM 09) L 8.1 (JAN 08) L 8.3 (JAN 26) Lactic 2.0 (JANUARY 19) C 2.5 (JANUARY 17) C 2.3 (JANUARY 17) C 2.6 (JANUARY 16) PT 11.9 (JAN 20) INR 1.1 (JAN 20) AST 14 (JAN 10) 16 (JAN 08) 20 (JAN 06) 25 (JAN 05) ALT 18 (JAN 10) 18 (JAN 08) 21 (JAN 25) 28 (JAN 24) ALK P 58 (JAN 10) 56 (JAN 08) 53 (JAN 06) 57 (JAN 05) T Bili 0.4 (JAN 10) 0.4 (JAN 08) 0.9 (JAN 06) 0.5 (JAN 05) PTN 6.4 (JAN 10) L 6.0 (JAN 08) L 5.9 (JAN 06) L 6.3 (JAN 24) ALB L 1.9 (JAN 10) L 1.5 (JAN 08) L 1.5 (JAN 06) L 1.5 (JAN 24) Troponin <0.015 (JANUARY 16) . JAN 29 [...] renal funtion - No emergent need of ENGINEERING PSYCHOLOGIST. documented in this encounter Plan of Treatment Not on file documented as of this encounter Visit Diagnoses Not on filedocumented in this encounter Care Teams Recycling Operations Manager Relationship Specialty Start Date End Date Yuan Mccracken MD [address] [place] [phone] PCP - General Family Medicine 09/23/22 documented as of this encounter
--- OUTSIDE RECORDS SUMMARY | 2025-05-31 10:48 | XMS_ITS | Encounter Summary ---
Author Organization [employer] ([place], [place], [place], [place]) Address [address] [place] [address] Care Team Providers Care Inspector Poising Name Role Phone Yuan Mccracken MD Primary Care Provider [phone] Encounter Details Date Type Department Care Team (Late st Contact Info) Description 01/24/2021 Transcribed Document [facility] [place] Family Medicine [address] [place] [address] ProviderPerry MD [address] [place] [address] Social History Tobacco Use Types Packs/Day Years Used Date Smoking Tobacco: Never Assessed Comments Unknown Sex and Gender Information Value Date Recorded Sex Assigned at Not on file Legal Sex Female 12:32 PM CDT Gender Identity Not on file Sexual Orientation Not on file documented as of this encounter Miscellaneous Notes * Cerner Conversion Note - Perry ProviderMD - 01/24/2021 4:00 AM CDT Height and Weight, Routine Entered On: 01/24/2021 5:28 EDT Performed On: 01/24/2021 4:00 EDT by Marcella Hernandez RN-TRAVELER Height and Weight, Routine Routine Weight Source : Bed scale Routine Weight Entry Format : Marilla Routine Weight, Pounds : 289 lb Routine Weight Calculation : 131.36 kg Height Source : Stated Height Entry Format : Marilla Height, Feet : 5 ft Height, Inches : 4 Inch Clinical Height : 162.56 cm Body Surface Area (BSA), Routine : 2.29 m2 Body Mass Index (BMI), Routine : 49.71 kg/m2 Marcella Hernandez, RN-TRAVELER - 01/24/2021 5:28 EDT Electronically signed by [facility] Conversion Pin Worker Cerner at 12/07/2022 6:14 PM CDT documented in this encounter Plan of Treatment Not on file documented as of this encounter Visit Diagnoses Not on filedocumented in this encounter Care Teams Inspector Poising Relationship Specialty Start Date End Date Yuan Mccracken MD [address] [place] [phone] PCP - General Family Medicine 09/23/22 documented as of this encounter
--- OUTSIDE RECORDS SUMMARY | 2025-05-31 10:48 | XMS_ITS | Encounter Summary ---
Author Organization [employer] ([place], [place], [place], [place]) Address [address] [place] [address] Care Team Providers Care Quality Assurance Representative Name Role Phone Yuan Mccracken MD Primary Care Provider [phone] Encounter Details Date Type Department Care Team (Late st Contact Info) Description 01/29/2021 Transcribed Document [facility] [place] Family Medicine [facility] [place] [address] ProviderPerry MD [address] [place] [address] Social History Tobacco Use Types Packs/Day Years Used Date Smoking Tobacco: Never Assessed Comments Unknown Sex and Gender Information Value Date Recorded Sex Assigned at Not on file Legal Sex Female 12:32 PM CDT Gender Identity Not on file Sexual Orientation Not on file documented as of this encounter Miscellaneous Notes * Cerner Conversion Note - Perry ProviderMD - 01/29/2021 1:04 PM CDT Education-Sepsis Entered [...] management of sepsis and overall experience. LEOPOLDO CARVER, [facility] - 01/29/2021 13:07 EDT documented in this encounter Plan of Treatment Not on file documented as of this encounter Visit Diagnoses Not on filedocumented in this encounter Care Teams Quality Assurance Representative Relationship Specialty Start Date End Date Yuan Mccracken MD [address] [place] [phone] PCP - General Family Medicine 09/23/22 documented as of this encounter
--- OUTSIDE RECORDS SUMMARY | 2025-05-31 10:48 | XMS_ITS | Encounter Summary ---
Author Organization [employer] ([place], [place], [place], [place]) Address [address] [place] [address] Care Team Providers Care Food Processor Name Role Phone Yuan Mccracken MD Primary Care Provider [phone] Encounter Details Date Type Department Care Team (Late st Contact Info) Description 01/29/2021 Transcribed Document [facility] [place] [address] [place] [address] ProviderPerry MD [address] [place] [address] Social History Tobacco Use Types Packs/Day Years [...] 01/29/2021 16:26 EDT by Maryjane Gonzalez V, Joint Cutter Machine Deputy Fire Chief Care Management Progress Note Discharge Arrangements : Patient Post-Acute Information Patient Name: CHANI VELASQUEZ Gender: Female : 56 Age: 60 Years No Post-Acute Placement(s) Listed No Post-Acute Service(s) Listed No Curaspan Referral(s) Listed Discharge Options Discussed with Patient : Acute rehabilitation, Home Health, [facility] Barriers to Discharge Identified : Clinical Condition of Patient Barriers to Discharge Unresolved : Clinical Condition of Patient Maryjane Gonzalez Social Worker Deputy Fire Chief - 01/29/2021 16:26 EDT Narrative Progress Note Narrative Progress Note : HD#12, elos-4, RRS-Moderate, Boost-3 [facility] has accepted pt for rehab and she is agreeable to rehab placement. Unable to obtain transportation until Tuesday at 10am via [employer] Historical Progress Note : HD#11, elos-4, RRS-Moderate, Boost-3 ID following and stopped IV Vanc and Zosyn. po doxy continued. Nephrology following. leg wounds improving with mist therapy with PT. CM sent updated clinical/therapy updates to all [facility] and [facility] for possible rehab palcement. Lack of insurance is a HUGE placement barrier. No current bed offers. CM to follow Maryjane Gonzalez Social Worker Deputy Fire Chief - 01/28/21 15:01:06 HD#10, elos-4, RRS-Moderate, Boost-3 ID following. IV Vanc and Zosyn and po doxy. Per nephrology, renal function stable. Wound care and mist therapy with PT. CM sent updated clinical/therapy updates to all [facility] and [place] facilities. Lack of insurance is a huge placement barrier. CM called [facility]. Left message for admit coordinator. Patient's is a resident at [facility]. CM hopes that they will accept patient as well with pending Medicaid. CM to follow Maryjane Gonzalez Social Worker Deputy Fire Chief - 01/27/21 14:23:52 HD#6, elos-4, RRS-Moderate, Boost-3 [...] and insurance status. Maryjane Gonzalez Social Worker Deputy Fire Chief - 01/26/21 13:44:57 HD#6, ELOS-not recorded, RRS-Moderate, Boost-3 ID following and recommending culture right leg wound and possible vascular consult. On IV Vanc and Zosyn. 3L /NC.,wound care. PT/OT recommending rehab. Referrals sent via [facility] to [facility] and SNF. Patient pending Medicaid. Placement susanna be difficult due to no insurance. is a resident at [facility]. Referral sent there too. CM to follow -- Maryjane Gonzalez V Joint Cutter Machine Deputy Fire Chief - 01/23/21 12:17:40 HD#5, ELOS-not recorded, RRS-Moderate, Boost-3 Patient on 2L 02/NC. IV Abx-Vanc and Zosyn. Wound care by PT. PT/OT recommending rehab. CM sent referrals via [employer]. Patient's is a resident at [facility]. Patient is self pay and has no health or presription coverage. Placement may be difficult due to pending Medicaid status. CM to follow patient's progess and SNF placement options. Maryjane Gonzalez V Joint Cutter Machine Deputy Fire Chief - 01/22/21 13:50:41 Maryjane Gonzalez V Joint Cutter Machine [facility] - 01/29/2021 16:26 EDT Electronically signed by Carlotta [facility] Conversion Group Work Program Director Cerner at 12/07/2022 6:06 PM CDT documented in this encounter Plan of Treatment Not on file documented as of this encounter Visit Diagnoses Not on filedocumented in this encounter Care Teams Food Processor Relationship Specialty Start Date End Date Yuan Mccracken MD [address] [place] [phone] PCP - General Family Medicine 09/23/22 documented as of this encounter
--- OUTSIDE RECORDS SUMMARY | 2025-05-31 10:48 | XMS_ITS | Encounter Summary ---
Author Organization [employer] ([place], [place], [place], [place]) Address [address] [place] [address] Care Team Providers Care Adjunct Nursing Faculty Name Role Phone Yuan Mccracken MD Primary Care Provider [phone] Encounter Details Date Type Department Care Team (Late st Contact Info) Description 01/23/2021 Transcribed Document [facility] [place] Family Medicine [facility] [place] [address] ProviderPerry MD [address] [place] [address] Social History Tobacco Use Types [...] Zosyn 3.375 Gm IV Q6H 01/21/21 - MD Orders - Vancomycin 1,750 mg IV Q24H CDS/Electronic Equipment Trades Worker Signature: __Jim Koch___ Phone #: __[phone]__ Date/Time: __01/23/21__ This is a permanent part of the Medical Record Q[address] [facility] [employer] Updated: documented in this encounter Plan of Treatment Not on file documented as of this encounter Visit Diagnoses Not on filedocumented in this encounter Care Teams Adjunct Nursing Faculty Relationship Specialty Start Date End Date Yuan Mccracken MD [address] [place] [phone] PCP - General Family Medicine 09/23/22 documented as of this encounter
--- OUTSIDE RECORDS SUMMARY | 2025-05-31 10:48 | XMS_ITS | Encounter Summary ---
Author Organization [employer] ([place], [place], [place], [place]) Address [address] [place] [address] Care Team Providers Care Drum Sander Offbearer Name Role Phone Yuan Mccracken MD Primary Care Provider [phone] Encounter Details Date Type Department Care Team (Late st Contact Info) Description 01/17/2021 Transcribed Document [facility] [place] Family Medicine [address] [place] [address] ProviderPerry MD [address] [place] [address] Social History Tobacco Use Types Packs/Day Years Used Date Smoking Tobacco: Never Assessed Comments Unknown Sex and Gender Information Value Date Recorded Sex Assigned at Not on file Legal Sex Female 12:32 PM CDT Gender Identity Not on file Sexual Orientation Not on file documented as of this encounter Miscellaneous Notes * Cerner Conversion Note - Perry ProviderMD - 01/17/2021 5:00 PM CDT Chart Check [...] on filedocumented in this encounter Care Teams Drum Sander Offbearer Relationship Specialty Start Date End Date Yuan Mccracken MD [facility] [place] [address] PCP - General Family Medicine 09/23/22 documented as of this encounter
--- OUTSIDE RECORDS SUMMARY | 2025-05-31 10:48 | XMS_ITS | Encounter Summary ---
Author Organization [employer] ([place], [place], [place], [place]) Address [address] [place] [address] Care Team Providers Care Vice President Payer Name Role Phone Yuan Mccracken MD Primary Care Provider [phone] Encounter Details Date Type Department Care Team (Late st Contact Info) Description 01/22/[address] [facility] [place] Family Medicine [address] [place] [address] ProviderPerry MD [address] [place] [address] Social History Tobacco Use Types Packs/Day Years Used Date Smoking Tobacco: Never Assessed Comments Unknown Sex and Gender Information Value Date Recorded Sex Assigned at Not on file Legal Sex Female 12:32 PM CDT Gender Identity Not on file Sexual Orientation Not on file documented as of this encounter Miscellaneous Notes * Cerner Conversion Note - Perry ProviderMD - 01/22/2021 4:00 AM CDT Height and Weight, Routine Entered On: 01/22/2021 5:48 EDT Performed On: 01/22/2021 4:00 EDT by Karina Regalado RN-PATIENT CARE BEDSIDE NON-EXEMPT Height and Weight, Routine Routine Weight Entry Format : Snyder Routine Weight, Pounds : 270 lb Routine Weight, Ounces : 8 oz Routine Weight Calculation : 122.95 kg Height Source : Stated Height Entry Format : Snyder Height, Feet : 5 ft Height, Inches : 4 Inch Clinical Height : 162.56 cm Body Surface Area (BSA), Routine : 2.23 m2 Body Mass Index (BMI), Routine : 46.53 kg/m2 Karina Regalado, RN-PATIENT CARE BEDSIDE NON-EXEMPT - 01/22/2021 5:48 EDT Electronically signed by Carlotta [facility] Conversion Slab Depiler Operator Cerner at 12/07/2022 6:30 PM CDT documented in this encounter Plan of Treatment Not on file documented as of this encounter Visit Diagnoses Not on filedocumented in this encounter Care Teams Vice President Payer Relationship Specialty Start Date End Date Yuan Mccracken MD [address] [place] [phone] PCP - General Family Medicine 09/23/22 documented as of this encounter
--- OUTSIDE RECORDS SUMMARY | 2025-05-31 10:48 | XMS_ITS | Encounter Summary ---
Author Organization [employer] ([place], [place], [place], [place]) Address [address] [place] [address] Care Team Providers Care Road Hogger Operator Name Role Phone Yuan Mccracken MD Primary Care Provider [phone] Encounter Details Date Type Department Care Team (Late st Contact Info) Description 01/31/2021 Transcribed Document [facility] [facility] [place] [address] [place] [address] ProviderPerry MD [address] [place] [address] Social History Tobacco Use Types Packs/Day [...] Nunes MD - 01/31/2021 10:49 AM CDT [facility] [place] [id number] CHANI VELASQUEZ :1960 Visit Time:01/16/2021 Your Visit [...] Comments f/u with venous reflux study Where: [facility] [address] [facility] [place] [address]- Business (1) Follow Up with JOSY LAW (REF) When Within 1 week Comments Please call and schedule an appointment to establish a Primary Care Provider in [place] once you receive your medicaid card. Call the patient resource center if you need assistance making this appointment. Where: [address] [facility] [place] [address] [place] [address]- Follow Up with Patient Resource Center When Only if needed Comments Please contact the Patient Resource Center at if you need assistance scheduling a Specialist or Primary Care Provider in the future. Follow Up with JOSE HARE MD-URO When Within 1 month Comments f/u stones Where: [address] [facility] [address] [place] [address]- Follow Up with DAMIAN HERNANDEZ When Within 1 month Where: [facility] [address] [place] [id number]- Business (1) Follow Up with JAGUAR PIZARRO When Within 2 months Where: [address] [place] [address] [place] [address]- Business (1) Medications What How Much When [...] these instructions at home: Medicines ??? Take drzx-xai-nzpdrwn and prescription medicines only as told by [...] provider. Document Revised: 12/28/2018 Document Reviewed: 12/28/2018 [email or web address] Patient Education ?? 2020 [place]. metolazone (me MICHAELA a zone) Zaroxolyn What [...] may report side effects to FDA at 4-884-ELB-5447. What other drugs will affect metolazone? Taking [...] may interact with metolazone, including prescription and ukck-uzo-pvggyth medicines, vitamins, and herbal products. Not all [...] to ensure that the information provided by [employer]. ('[employer]') is accurate, up-to-date, and complete, but no guarantee is made to that effect. Drug information contained herein may be time sensitive. [employer] information has been compiled for use by healthcare practitioners and consumers in the [place] and therefore [employer] does not warrant that uses outside of the [place] are appropriate, unless specifically indicated otherwise. [employer]'s drug information does not endorse drugs, diagnose patients or recommend therapy. [employer] drug information is an informational resource designed [...] effective or appropriate for any given patient. [facility] does not assume any responsibility for any aspect of healthcare administered with the aid of information [facility] provides. The information contained herein is not intended to cover all possible uses, directions, precautions, warnings, drug interactions, allergic reactions, or adverse effects. If you have questions about the drugs you are taking, check with your doctor, nurse or pharmacist. Copyright 1923-5731 [employer]. Version: 8.01. Revision Date: 10/27/2015. Emergency Awareness [...] Assistance with quitting is available by contacting 1-281-YPLU-NOW. This is a free resource providing counseling, [...] range between ( 0.0 and 7.0 ) Hand #: 0.55 K/uL -- Normal range between ( 0.16 and 1.00 ) Eos #: 0.16 x10(3)/uL -- Normal range between ( 0.00 and 0.80 ) Hand %: 6.6 % -- Normal range between [...] range between ( 5 and 11 ) Hand Percent Man: 4 % -- Normal range between ( 4 and 5 ) Baso Percent Man: 1 % -- Normal range between ( 0 and 1 ) Neutrophil Percent Man: 77 % -- Normal range between ( 50 and 65 ) Eos Percent Man: 1 % -- Normal range between ( 0 and 3 ) Stanford Percent Man: 2 % -- Normal range [...] 0.000 and 0.012 ) 01/19/2021 3:12 AM [place] Cells: 1+ 01/16/2021 2:[address] [...] ) Urine Bilirubin Dipstick: Negative Urine Specific Corona: 1.011 -- Normal range between ( 1.005 [...] Detected Coronavirus 229E: Not Detected Influenza A 2009 H1N1: Not Detected Mycoplasma pneumoniae: Not Detected Chlamydia pneumoniae: Not Detected SARS-CoV-2 (COVID19 PCR): Not Detected Bordatella parapertussis: Not Detected Urine Chemistry 01/16/2021 8:51 PM Creatinine Urine Random: 38 mg/dL Sodium Ur Grubbs: 60 mMole/Liter 01/16/2021 2:59 AM Protein Ur Grubbs: 103 mg/dL General Chemistry 01/31/2021 6:49 AM [...] BILAT: VL Veins LE Duplex BILAT Patient Name:CHANI VELASQUEZ I have received and understand this information and was given the opportunity to ask questions. Patient/Green Chain Offbearer Name: Patient/Green Chain Offbearer Signature: Relationship to Patient: Clinician/Hospital Green Chain Offbearer Signature: Date: documented in this encounter Plan of Treatment Not on file documented as of this encounter Visit Diagnoses Not on filedocumented in this encounter Care Teams Road Hogger Operator Relationship Specialty Start Date End Date Yuan Mccracken MD [address] [place] [address] PCP - General Family Medicine 09/23/22 documented as of this encounter
--- OUTSIDE RECORDS SUMMARY | 2025-05-31 10:48 | XMS_ITS | Encounter Summary ---
Author Organization [employer] ([place], [place], [place], [place]) Address [address] [place] [address] Care Team Providers Care Outcomes Manager Name Role Phone Yuan Mccracken MD Primary Care Provider [phone] Encounter Details Date Type Department Care Team (Late st Contact Info) Description 01/23/2021 Transcribed Document [facility] [place] [facility] [place] [address] ProviderPerry MD [address] [place] [address] Social History Tobacco Use Types Packs/Day [...] 24 (TOM 04) 27 (TOM 03) 29 (TOM 02) 26 (TOM 01) BUN H 29 (TOM 04) H 32 (TOM 03) H 34 (TOM 02) H 48 (TOM 01) Cr H 1.20 (TOM 04) H 1.30 (TOM 03) H 1.40 (TOM 02) H 1.60 (TOM 01) Glu R 98 (TOM 04) H 121 (JAN 22) H 111 [...] Rx will follow, [employer], FrankyD PGY1 Medical Artist Pager: [phone], Ext. [phone] Electronically signed by Carlotta, [facility] Conversion Oracle Application Architect Cerner at 12/07/2022 6:05 PM CDT documented in this encounter Plan of Treatment Not on file documented as of this encounter Visit Diagnoses Not on filedocumented in this encounter Care Teams Outcomes Manager Relationship Specialty Start Date End Date Yuan Mccracken MD [facility] [place] [address] PCP - General Family Medicine 09/23/22 documented as of this encounter
--- OUTSIDE RECORDS SUMMARY | 2025-05-31 10:48 | XMS_ITS | Encounter Summary ---
Author Organization [employer] ([place], [place], [place], [place]) Address [address] [place] [address] Care Team Providers Care Parts Clerk Plant Maintenance Name Role Phone Yuan Mccracken MD Primary Care Provider [phone] Encounter Details Date Type Department Care Team (Late st Contact Info) Description 01/30/2021 Transcribed Document [facility] [place] [facility] [place] [address] ProviderPerry MD [address] [place], [place] [phone] Social History Tobacco Use Types Packs/Day Years [...] Policy Numbers : Insurance 1 Health Plan: [facility] Policy Number: [id number] Authorization Number: Insurance Primary Name : [employer] MEDICAID [id number] Authorization Status-Primary : Awaiting callback Reference Number-Primary : Pend ref # [id number]. Authorized Service Begin Date-Primary : 01/16/2021 EDT Authorization Comments-Primary : rec'd call from [employer] med[employer]- they did receive clinicals and will call back with a decision. Historical Authorization Comments-Primary : Comment 1: vm to [employer] med[employer] [id number] (covering for Brittney Kelly) asking if she rec'd clinical info faxed on 01/29/21. await call back (DWIGHT PERALTA, RN-Utilization Review 01/30/2021 09:26) Comment 2: CM gave a medicaid ID no. Per [facility] pt has [facility]. Notified [facility] clinicals submitted via [facility] portal and faxed via [employer] from 01/16 to 01/29 for Ip approval [...] 01/22/2021 08:29) Comment 8: SELF PAY (DWIGHT PERALTA, RN-Utilization Review 01/21/2021 08:19) Comment 9: Self pay at the time of review (CARMEN MARLOW RN 01/20/2021 13:51) DWIGHT PERALTA, RN-Utilization Review - 01/30/2021 10:07 EDT Electronically signed by Gayle Laguerre Conversion Bilingual Customer Service Specialist Cerner at 12/07/2022 6:17 PM CDT documented in this encounter Plan of Treatment Not on file documented as of this encounter Visit Diagnoses Not on filedocumented in this encounter Care Teams Parts Clerk Plant Maintenance Relationship Specialty Start Date End Date Yuan Mccracken MD [address] [place] [phone] PCP - General Family Medicine 09/23/22 documented as of this encounter
--- OUTSIDE RECORDS SUMMARY | 2025-05-31 10:48 | XMS_ITS | Encounter Summary ---
Author Organization [employer] ([place], [place], [place], [place]) Address [address] [place] [address] Care Team Providers Care Instructor Painting Name Role Phone Yuan Mccracken MD Primary Care Provider [phone] Encounter Details Date Type Department Care Team (Late st Contact Info) Description 01/22/2021 Transcribed Document [facility] [place] [facility] [place] [address] ProviderPerry MD [address] [place] [phone] Social History Tobacco Use Types Packs/Day Years [...] Nunes MD - 01/22/2021 2:00 AM CDT Auto Electrician Details Entered On: 01/22/2021 5:03 EDT Performed [...] CARE BEDSIDE NON-EXEMPT - 01/22/2021 5:03 EDT Electronically signed by Carlotta, [facility] Conversion Investment Representative Cerner at 12/07/2022 6:11 PM CDT documented in this encounter Plan of Treatment Not on file documented as of this encounter Visit Diagnoses Not on filedocumented in this encounter Care Teams Instructor Painting Relationship Specialty Start Date End Date Yuan Mccracken MD [address] [place] [phone] PCP - General Family Medicine 09/23/22 documented as of this encounter
--- OUTSIDE RECORDS SUMMARY | 2025-05-31 10:48 | XMS_ITS | Encounter Summary ---
Author Organization [employer] ([place], [place], [place], [place]) Address [address] [place] [address] Care Team Providers Care Sales And Service Consultant Name Role Phone Yuan Mccracken MD Primary Care Provider [phone] Encounter Details Date Type Department Care Team (Late st Contact Info) Description 01/23/2021 Transcribed Document [facility] [place] [facility] [place] [address] ProviderPerry MD [address] [place] [phone] Social History Tobacco Use Types Packs/Day Years [...] - Medical Apixaban 5 mg, Oral, Tab, [id number], Routine, Start 01/21/21 10:00:00 EDT, 01/21/21 9:43:00 [...] PRN Eliquis, 5 mg= 1 Tab, Oral, [id number] Lac-Hydrin 12% topical lotion, 1 Application, Topical, [...] mg= 1 Tab, Oral, BID, PRN nystatin, [id number] Units= 5 mL, Swish and Swallow , [...] Man 10 % (Low) 01/23/2021 06:11 EDT [place] Percent Man 4 % 01/23/2021 06:11 EDT Eos Percent Man 1 % 01/23/2021 06:11 EDT [place] Percent Man 1 % 01/23/2021 06:11 EDT [place] Percent Man 2 % (High) 01/23/2021 06:11 [...] mcg/mL 01/23/2021 17:04 EDT Electronically signed by Interface, [facility] Conversion Apparel Patternmaker Cerner at 12/07/2022 6:13 PM CDT documented in this encounter Plan of Treatment Not on file documented as of this encounter Visit Diagnoses Not on filedocumented in this encounter Care Teams Sales And Service Consultant Relationship Specialty Start Date End Date Yuan Mccracken MD [address] [place] [phone] PCP - General Family Medicine 09/23/22 documented as of this encounter
--- OUTSIDE RECORDS SUMMARY | 2025-05-31 10:48 | XMS_ITS | Encounter Summary ---
Author Organization [employer] ([place], [place], [place], [place]) Address [address] [place] [address] Care Team Providers Care Cloth Mercerizer Back Tender Name Role Phone Yuan Mccracken MD Primary Care Provider [phone] Encounter Details Date Type Department Care Team (Late st Contact Info) Description 01/18/2021 Transcribed Document [facility] [place] [facility] [place] [address] ProviderPerry MD [address] [place] [address] Social History Tobacco Use Types Packs/Day Years Used Date Smoking Tobacco: Never Assessed Comments Unknown Sex and Gender Information Value Date Recorded Sex Assigned at Not on file Legal Sex Female 12:32 PM CDT Gender Identity Not on file Sexual Orientation Not on file documented as of this encounter Miscellaneous Notes * Cerner Conversion Note - Perry ProviderMD - 01/18/2021 5:00 PM CDT Chart Check - Review Order Profile Entered On: 01/18/2021 19:49 EDT Performed On: 01/18/2021 19:49 EDT by Katty Briceno RN Chart Check Powerplans Initiated/Discontinued as Appropriate : Yes All Active Orders Reviewed : Yes Katty Briceno RN - 01/18/2021 19:49 EDT documented in this encounter Plan of Treatment Not on file documented as of this encounter Visit Diagnoses Not on filedocumented in this encounter Care Teams Cloth Mercerizer Back Tender Relationship Specialty Start Date End Date Yuan Mccracken MD [address] [place] [phone] PCP - General Family Medicine 09/23/22 documented as of this encounter
--- OUTSIDE RECORDS SUMMARY | 2025-05-31 10:48 | XMS_ITS | Encounter Summary ---
Author Organization [employer] ([place], [place], [place], [place]) Address [address] [place] [address] Care Team Providers Care Trust Mail Clerk Name Role Phone Yuan Mccracken MD Primary Care Provider [phone] Encounter Details Date Type Department Care Team (Late st Contact Info) Description 01/23/2021 Transcribed Document [facility] [place] [address] [place] [address] ProviderPerry MD [address] [place] [address] Social History Tobacco Use Types Packs/Day [...] SHOEMAKER PTA - 01/23/2021 11:46 EDT Senior Care Goals Mobility/Bed Mobility LTG PT Grid Goal [...] Goal Status : Progressing, continue MISSY SHOEMAKER FURNITURE REMOVALIST - 01/23/2021 11:46 EDT Other PT LTG [...] Anticipated Discharge to : Unit, rehabilitation, Unit, long term MISSY SHOEMAKER PTA - 01/23/2021 11:46 EDT documented in this encounter Plan of Treatment Not on file documented as of this encounter Visit Diagnoses Not on filedocumented in this encounter Care Teams Trust Mail Clerk Relationship Specialty Start Date End Date Yuan Mccracken MD [address] [place] [phone] PCP - General Family Medicine 09/23/22 documented as of this encounter
--- OUTSIDE RECORDS SUMMARY | 2025-05-31 10:48 | XMS_ITS | Encounter Summary ---
Author Organization [employer] ([place], [place], [place], [place]) Address [address] [place] [address] Care Team Providers Care Residential Glazier Name Role Phone Yuan Mccracken MD Primary Care Provider [phone] Encounter Details Date Type Department Care Team (Late st Contact Info) Description 01/17/2021 Transcribed Document [facility] [place] [facility] [place] [address] ProviderPerry MD [address] [place] [address] Social History Tobacco Use Types Packs/Day Years Used Date Smoking Tobacco: Never Assessed Comments Unknown Sex and Gender Information Value Date Recorded Sex Assigned at Not on file Legal Sex Female 12:32 PM CDT Gender Identity Not on file Sexual Orientation Not on file documented as of this encounter Miscellaneous Notes * Cerner Conversion Note - Perry ProviderMD - 01/17/2021 9:16 AM CDT UM Authorization Entered On: 01/17/2021 9:16 EDT Performed On: 01/17/2021 9:16 EDT by MAHSA PAGAN Mkt Assisted Living Director-Utilization Mgt Primary Insurance Authorization Authorization and Policy Numbers : Insurance 1 Health Plan: SELF PAY Policy Number: Authorization Number: Insurance Primary Name : Self-pay Historical Authorization Comments-Primary : No Authorization Comments Found MAHSA PAGAN Mkt Assisted Living Director-Utilization Mgt - 01/17/2021 9:16 EDT documented in this encounter Plan of Treatment Not on file documented as of this encounter Visit Diagnoses Not on filedocumented in this encounter Care Teams Residential Glazier Relationship Specialty Start Date End Date Yuan Mccracken MD [address] [place] [phone] PCP - General Family Medicine 09/23/22 documented as of this encounter
--- OUTSIDE RECORDS SUMMARY | 2025-05-31 10:48 | XMS_ITS | Encounter Summary ---
Author Organization [employer] ([place], [place], [place], [place]) Address [address] [place] [address] Care Team Providers Care Inside Wirer Name Role Phone Yuan Mccracken MD Primary Care Provider [phone] Encounter Details Date Type Department Care Team (Late st Contact Info) Description 01/22/2021 Transcribed Document [facility] [place] Family Medicine [address] [place] [address] ProviderPerry MD [address] [place] [id number] Social History Tobacco Use Types Packs/Day Years [...] 01/22/2021 13:47 EDT by Maryjane Gonzalez V, Tour Guide Travel Nurse Care Management Progress Note Discharge Arrangements : Patient Post-Acute Information Patient Name: CHANI VELASQUEZ Gender: Female : 56 Age: 60 Years No Post-Acute Placement(s) Listed No Post-Acute Service(s) Listed No Curaspan Referral(s) Listed Discharge Options Discussed with Patient : Acute rehabilitation, Home Health, assisted Barriers to Discharge Identified : Clinical Condition of Patient Barriers to Discharge Unresolved : Clinical Condition of Patient Referral Indicators For Complex SWK Interventions : Other: self pay-Medicaid pending Is the Patient Meeting Medical Necessity : Yes Did you Attend Multidisciplinary Rounds? : Yes Maryjane Gonzalez V Tour Guide Travel Nurse - 01/22/2021 13:47 EDT Narrative Progress Note Narrative Progress Note : HD#5, ELOS-not recorded, RRS-Moderate, Boost-3 Patient on 2L /. IV Abx-Vanc and Zosyn. Wound care by PT. PT/OT recommending rehab. CM sent referrals via [employer]. Patient's is a resident at [facility]. Patient is self pay and has no health or presription coverage. Placement may be difficult due to pending Medicaid status. CM to follow patient's progess and SNF placement options. Maryjane Gonzalez V Tour Guide [facility] 01/22/2021 13:47 EDT Electronically signed by Gayle Laguerre Conversion Technician Support Association Cerner at 12/07/2022 6:17 PM CDT documented in this encounter Plan of Treatment Not on file documented as of this encounter Visit Diagnoses Not on filedocumented in this encounter Care Teams Inside Wirer Relationship Specialty Start Date End Date Yuan Mccracken MD [address] [place] [phone] PCP - General Family Medicine 09/23/22 documented as of this encounter
--- OUTSIDE RECORDS SUMMARY | 2025-05-31 10:48 | XMS_ITS | Encounter Summary ---
Author Organization [employer] ([place], [place], [place], [place]) Address [address] [place] [address] Care Team Providers Care Sample Driller Name Role Phone Yuan Mccracken MD Primary Care Provider [phone] Encounter Details Date Type Department Care Team (Late st Contact Info) Description 01/23/2021 Transcribed Document [facility] [place] Family Medicine [address] [place] [address] ProviderPerry MD [address] [place] [phone] Social History Tobacco Use Types Packs/Day Years [...] Daily, PRN: Constipation Eliquis: 5 mg, Oral, [id number] Lac-Hydrin 12% topical lotion: 1 Application, Topical, [...] mL: 1,750 mg, 250 mL/Hr, IV Piggyback, [id number] Physical Examination VS/Measurements Vitals Signs (last 24 [...] EDT Height Source Stated Height Entry Format [place] Height/Length, CAMEROONIAN (ft) 5 ft Height/Length CAMEROONIAN 4 Inch CLINICALHEIGHT 162.56 cm Routine Weight Source Bed scale Routine Weight Entry Format [place] Routine Weight, Pounds 283 lb Routine Weight, Ounces 9 oz Routine Weight Calculation 128.89 kg Body Mass Index (BMI), Routine 48.77 kg/m2 Body Surface Area (BSA), Routine 2.27 m2 01/22/2021 4:00 EDT Height Source Stated Height Entry Format [place] Height/Length, CAMEROONIAN (ft) 5 ft Height/Length CAMEROONIAN 4 Inch CLINICALHEIGHT 162.56 cm Routine Weight Entry Format [place] Routine Weight, Pounds 270 lb Routine Weight, [...] 23) L 8.8 (JAN 22) L 8.7 (TOM 02) L 9.2 (JAN 20) HCT L 29.8 (JAN 04) L 29.9 (JAN 03) L 28.2 (JAN 02) L 29.6 (JAN 20) Plt H 378 (JAN 04) 341 (JAN 03) 322 (JAN 02) 305 (JAN 01) Na 137 (JAN 04) 136 (JAN 03) 137 (JAN 02) 139 (JAN 01) K 4.5 (JAN 04) 3.7 (JAN 03) 3.9 (JAN 02) L 3.2 (JAN 02) Cl 108 (JAN 23) 105 (JAN 03) 103 (JAN 02) 105 (JAN 01) CO2 24 (JAN 23) 27 (JAN 22) 29 (JAN 21) 26 (JAN 20) BUN [...] alternative -- consider vascular consult -- probiotic Electronically signed by Carlotta [facility] Conversion Manager Fiber Cerner at 12/07/2022 6:27 PM CDT documented in this encounter Plan of Treatment Not on file documented as of this encounter Visit Diagnoses Not on filedocumented in this encounter Care Teams Sample Driller Relationship Specialty Start Date End Date Yuan Mccracken MD [address] [place] [phone] PCP - General Family Medicine 09/23/22 documented as of this encounter
--- OUTSIDE RECORDS SUMMARY | 2025-05-31 10:48 | XMS_ITS | Encounter Summary ---
Author Organization [employer] ([place], [place], [place], [place]) Address [address] [place] [address] Care Team Providers Care Nut Steamer Name Role Phone Yuan Mccracken MD Primary Care Provider [phone] Encounter Details Date Type Department Care Team (Late st Contact Info) Description 01/29/2021 Transcribed Document [facility] [place] [address] ProviderPerry MD [address] [place] [address] Social History Tobacco Use Types [...] Nunes MD - 01/29/2021 2:00 AM CDT Sample Examiner Details Entered On: 01/29/2021 5:58 EDT Performed [...] CARE BEDSIDE NON-EXEMPT - 01/29/2021 5:58 EDT Electronically signed by Carlotta [facility] Conversion Shuttle Fitting Supervisor Cerner at 12/07/2022 6:29 PM CDT documented in this encounter Plan of Treatment Not on file documented as of this encounter Visit Diagnoses Not on filedocumented in this encounter Care Teams Nut Steamer Relationship Specialty Start Date End Date Yuan Mccracken MD [address] [place] [phone] PCP - General Family Medicine 09/23/22 documented as of this encounter
--- OUTSIDE RECORDS SUMMARY | 2025-05-31 10:48 | XMS_ITS | Encounter Summary ---
Author Organization [employer] ([place], [place], [place], [place]) Address [address] [place] [address] Care Team Providers Care Commissioner Conservation Of Resources Name Role Phone Yuan Mccracken MD Primary Care Provider [phone] Encounter Details Date Type Department Care Team (Late st Contact Info) Description 01/31/2021 Transcribed Document [facility] [place] Family [place] [address] [place] [address] ProviderPerry MD [address] [place] [phone] Social History Tobacco Use Types Packs/Day Years Used Date Smoking Tobacco: Never Assessed Comments Unknown Sex and Gender Information Value Date Recorded Sex Assigned at Not on file Legal Sex Female 12:32 PM CDT Gender Identity Not on file Sexual Orientation Not on file documented as of this encounter Miscellaneous Notes * Cerner Conversion Note - Perry ProviderMD - 01/31/2021 5:25 PM CDT Discharge Summary, PT Entered On: 01/31/2021 17:28 EDT Performed On: 01/31/2021 17:25 EDT by VISHAL GÓMEZ PT Discharge Summary Discharge Summary Provider Notified [...] VISHAL GÓMEZ, PT - 01/31/2021 17:25 EDT [employer] Supervisor Goals Mobility/Bed Mobility LTG PT Grid Goal [...] 02/02/2021 EDT Goal Status : Not met SENFT, VISHAL L., PT - 01/31/2021 17:25 EDT Other PT [...] - 01/31/2021 17:25 EDT Electronically signed by [facility] Conversion Orthodontist Vice President Cerner at 12/07/2022 6:23 PM CDT documented in this encounter Plan of Treatment Not on file documented as of this encounter Visit Diagnoses Not on filedocumented in this encounter Care Teams Commissioner Conservation Of Resources Relationship Specialty Start Date End Date Yuan Mccracken MD [address] [place] [phone] PCP - General Family Medicine 09/23/22 documented as of this encounter
--- OUTSIDE RECORDS SUMMARY | 2025-05-31 10:48 | XMS_ITS | Encounter Summary ---
Author Organization [employer] ([place], [place], [place], [place]) Address [address] [place] [address] Care Team Providers Care Metal Stamping Machine Operator Name Role Phone Yuan Mccracken MD Primary Care Provider [phone] Encounter Details Date Type Department Care Team (Late st Contact Info) Description 02/02/2021 Transcribed Document [facility] [place] [facility] [place] [address] ProviderPerry MD [address] [place], [place] [phone] Social History Tobacco Use Types Packs/Day Years Used Date Smoking Tobacco: Never Assessed Comments Unknown Sex and Gender Information Value Date Recorded Sex Assigned at Not on file Legal Sex Female 12:32 PM CDT Gender Identity Not on file Sexual Orientation Not on file documented as of this encounter Miscellaneous Notes * Cerner Conversion Note - Perry ProviderMD - 02/02/2021 2:32 PM CDT UM Authorization Entered On: 02/02/2021 14:32 EDT Performed On: 02/02/2021 14:32 EDT by Rochelle Vasquez, Deputy K 9 Primary Insurance Authorization Authorization and Policy Numbers : Insurance 1 Health Plan: [facility] Policy Number: [id number] Authorization Number: Insurance Primary Name : [employer] MEDICAID [id number] Authorization Status-Primary : Awaiting callback Auth/Referral Contact Name-Primary : [place] Reference Number-Primary : [id number] Authorized Service Begin Date-Primary : 01/16/2021 EDT Authorization Comments-Primary : Discharge date and summary faxed. Historical Authorization Comments-Primary : Comment 1: rec'd call from [employer]- they did receive clinicals and will call back with a decision. (DWIGHT PERALTA, RN-Utilization Review 01/30/2021 10:07) Comment 2: vm to [employer] med[employer] [phone] (covering for Brittney Kelly) asking if she rec'd clinical info faxed on 01/29/21. await call back (DWIGHT PERALTA, RN-Utilization Review 01/30/2021 09:26) Comment 3: CM gave a medicaid ID no. Per KYMMHELADIO pt has [place] [employer]. Notified [facility] clinicals submitted via [facility] portal and faxed via [employer] from 01/16 to 01/29 for Ip approval [...] (CARMEN MARLOW RN 01/20/2021 13:51) Rochelle Vasquez, Deputy K 9 - 02/02/2021 14:32 EDT documented in this encounter Plan of Treatment Not on file documented as of this encounter Visit Diagnoses Not on filedocumented in this encounter Care Teams Metal Stamping Machine Operator Relationship Specialty Start Date End Date Yuan Mccracken MD [address] [place] [phone] PCP - General Family Medicine 09/23/22 documented as of this encounter
--- OUTSIDE RECORDS SUMMARY | 2025-05-31 10:48 | XMS_ITS | Encounter Summary ---
Author Organization [employer] ([place], [place], [place], [place]) Address [address] [place] [address] Care Team Providers Care Election Watcher Name Role Phone Yuan Mccracken MD Primary Care Provider [phone] Encounter Details Date Type Department Care Team (Late st Contact Info) Description 01/30/2021 Transcribed Document [facility] [place] [address] ProviderPerry MD [address] [place] [address] Social History Tobacco Use Types Packs/Day Years Used Date Smoking Tobacco: Never Assessed Comments Unknown Sex and Gender Information Value Date Recorded Sex Assigned at Not on file Legal Sex Female 12:32 PM CDT Gender Identity Not on file Sexual Orientation Not on file documented as of this encounter Miscellaneous Notes * Cerner Conversion Note - Perry ProviderMD - 01/30/2021 5:00 AM CDT Chart Check - Review Order Profile Entered On: 01/30/2021 4:25 EDT Performed On: 01/30/2021 5:00 EDT by Karla Barakat Non Emp RN Chart Check All Active Orders Reviewed : Yes Karla Barakat Non Emp RN - 01/30/2021 4:25 EDT documented in this encounter Plan of Treatment Not on file documented as of this encounter Visit Diagnoses Not on filedocumented in this encounter Care Teams Election Watcher Relationship Specialty Start Date End Date Yuan Mccracken MD [address] [place] [phone] PCP - General Family Medicine 09/23/22 documented as of this encounter
--- OUTSIDE RECORDS SUMMARY | 2025-05-31 10:48 | XMS_ITS | Clinical Summary ---
Author Organization [facility] Address [address] [facility] [address] [place] [address] Phone Care Team Providers Care Guest Services Director Name Role Phone Unavailable Unavailable Conditions or Problems No information available. Medications No information available. Medications Administered No information available. Allergies, Adverse Reactions, Alerts No information available. Results No information available. Plan of Care No information available. Procedures No information available. Vital Signs No information available. Immunizations No information available. Advance Directives No information available.
--- OUTSIDE RECORDS SUMMARY | 2025-05-31 10:48 | XMS_ITS | Encounter Summary ---
Author Organization [employer] ([place], [place], [place], [place]) Address [address] [place] [address] Care Team Providers Care Manufacturing Assembler Name Role Phone Yuan Mccracken MD Primary Care Provider [phone] Encounter Details Date Type Department Care Team (Late st Contact Info) Description 01/29/2021 Transcribed Document [facility] [place] Family Medicine [facility] [place] [address] ProviderPerry MD [address] [place] [address] Social History Tobacco Use Types Packs/Day Years Used Date Smoking Tobacco: Never Assessed Comments Unknown Sex and Gender Information Value Date Recorded Sex Assigned at Not on file Legal Sex Female 12:32 PM CDT Gender Identity Not on file Sexual Orientation Not on file documented as of this encounter Miscellaneous Notes * Cerner Conversion Note - Perry ProviderMD - 01/29/2021 5:00 PM CDT Chart Check [...] on filedocumented in this encounter Care Teams Manufacturing Assembler Relationship Specialty Start Date End Date Yuan Mccracken MD [address] [place] [phone] PCP - General Family Medicine 09/23/22 documented as of this encounter
--- OUTSIDE RECORDS SUMMARY | 2025-05-31 10:48 | XMS_ITS | Encounter Summary ---
Author Organization [employer] ([place], [place], [place], [place]) Address [address] [place] [address] Care Team Providers Care Partition Assembler Name Role Phone Yuan Mccracken MD Primary Care Provider [phone] Encounter Details Date Type Department Care Team (Late st Contact Info) Description 01/22/2021 Transcribed Document [facility] [place] [facility] [place] [address] ProviderPerry MD [address] [place] [phone] Social History Tobacco Use Types Packs/Day Years [...] - Medical Apixaban 5 mg, Oral, Tab, [id number], Routine, Start 01/21/21 10:00:00 EDT, 01/21/21 9:43:00 [...] PRN Eliquis, 5 mg= 1 Tab, Oral, [id number] Lac-Hydrin 12% topical lotion, 1 Application, Topical, BID magnesium sulfate, 2 Gram= 50 mL, IV Piggyback, Daily, PRN magnesium sulfate, 2 Gram= 50 mL, IV Piggyback, Q2H, PRN metoprolol tartrate, 50 mg= 1 Tab, Oral, BID MiraLax, 17 Gram= 1 Packet, Oral, Daily, PRN Mucinex, 600 mg= 1 Tab, Oral, BID, PRN nystatin, [id number] Units= 5 mL, Swish and Swallow , [...] ALYC # 2 K/uL 01/22/2021 06:25 EDT [place] Percent Man 2 % (Low) 01/22/2021 06:25 [...] 01/22/2021 06:25 EDT Electronically signed by Carlotta, [facility] Conversion Ekg Technician Cerner at 12/07/2022 6:12 PM CDT documented in this encounter Plan of Treatment Not on file documented as of this encounter Visit Diagnoses Not on filedocumented in this encounter Care Teams Partition Assembler Relationship Specialty Start Date End Date Yuan Mccracken MD [address] [place] [phone] PCP - General Family Medicine 09/23/22 documented as of this encounter
--- OUTSIDE RECORDS SUMMARY | 2025-05-31 10:49 | XMS_ITS | Encounter Summary ---
Author Organization [employer] ([place], [place], [place], [place]) Address [address] [place] [address] Care Team Providers Care Cartography/Mapping Technician Name Role Phone Yuan Mccracken MD Primary Care Provider [phone] Encounter Details Date Type Department Care Team (Late st Contact Info) Description 01/24/2021 Transcribed Document [facility] [place] [facility] [place] [address] ProviderPerry MD [address] [place], [place] [phone] Social History Tobacco Use Types Packs/Day Years Used Date Smoking Tobacco: Never Assessed Comments Unknown Sex and Gender Information Value Date Recorded Sex Assigned at Not on file Legal Sex Female 12:32 PM CDT Gender Identity Not on file Sexual Orientation Not on file documented as of this encounter Miscellaneous Notes * Cerner Conversion Note - Perry ProviderMD - 01/24/2021 2:22 PM CDT Patient: CHANI [...] (TOM 02) CO2 24 (TOM 05) 24 (JAN 23) 27 (JAN 22) 29 (JAN 21) BUN H 26 (JAN 24) H 29 (JAN 23) H 32 (JAN 22) H 34 (JAN 21) Cr H 1.40 (JAN 05) H 1.20 (JAN 23) H 1.30 (JAN 22) H 1.40 (JAN 21) Glu R H 124 (JAN 24) 98 (JAN 23) H 121 (JAN 22) [...] changes. Rx will follow, Dariel Hein PharmD, [facility] Pager: [phone], Ext. [phone] documented in this encounter Plan of Treatment Not on file documented as of this encounter Visit Diagnoses Not on filedocumented in this encounter Care Teams Cartography/Mapping Technician Relationship Specialty Start Date End Date Yuan Mccracken MD [address] [place] [phone] PCP - General Family Medicine 09/23/22 documented as of this encounter
--- OUTSIDE RECORDS SUMMARY | 2025-05-31 10:49 | XMS_ITS | Encounter Summary ---
Author Organization [employer] ([place], [place], [place], [place]) Address [address] [place] [address] Care Team Providers Care Support Architect Name Role Phone Yuan Mccracken MD Primary Care Provider [phone] Encounter Details Date Type Department Care Team (Late st Contact Info) Description 01/18/2021 Transcribed Document [facility] [place] [address] [place] [address] ProviderPerry MD [address] [place] [address] Social History Tobacco Use Types Packs/Day Years Used Date Smoking Tobacco: Never Assessed Comments Unknown Sex and Gender Information Value Date Recorded Sex Assigned at Not on file Legal Sex Female 12:32 PM CDT Gender Identity Not on file Sexual Orientation Not on file documented as of this encounter Miscellaneous Notes * Cerner Conversion Note - Historical ProviderMD - 01/18/2021 12:46 PM CDT Consult Phone Call Documentation Entered On: 01/19/2021 9:19 EDT Performed On: 01/19/2021 8:00 EDT by Charisse Granger Printing Services Coordinator-Health Unit Coord Phone Call for Consults Consult Phone Call/Page Attempt : First call Charisse Granger Printing Services Coordinator-Health Unit Coord - 01/19/2021 9:19 EDT documented in this encounter Plan of Treatment Not on file documented as of this encounter Visit Diagnoses Not on filedocumented in this encounter Care Teams Support Architect Relationship Specialty Start Date End Date Yuan Mccracken MD [facility] [place] [address] PCP - General Family Medicine 09/23/22 documented as of this encounter
--- OUTSIDE RECORDS SUMMARY | 2025-05-31 10:49 | XMS_ITS | Encounter Summary ---
Author Organization [employer] ([place], [place], [place], [place]) Address [address] [place] [address] Care Team Providers Care Porcelain Enamel Sprayer Name Role Phone Yuan Mccracken MD Primary Care Provider [phone] Encounter Details Date Type Department Care Team (Late st Contact Info) Description 01/31/2021 Transcribed Document [facility] [place] Family Medicine [address] [place] [address] ProviderPerry MD [address] [place] [id number] Social History Tobacco Use Types Packs/Day Years Used Date Smoking Tobacco: Never Assessed Comments Unknown Sex and Gender Information Value Date Recorded Sex Assigned at Not on file Legal Sex Female 12:32 PM CDT Gender Identity Not on file Sexual Orientation Not on file documented as of this encounter Miscellaneous Notes * Cerner Conversion Note - [place] ProviderMD - 01/31/2021 10:44 AM CDT Nursing Discharge Summary Entered On: 01/31/2021 10:45 EDT Performed On: 01/31/2021 10:44 EDT by UMESH BARRY RN Discharge Documentation Discharge Date/Time : 01/31/2021 15:00 EDT Patient Disposition, General : Discharge Discharge To : detention facility Mode Of Departure, General Discharge : [...] on filedocumented in this encounter Care Teams Porcelain Enamel Sprayer Relationship Specialty Start Date End Date Yuan Mccracken MD [address] [place] [address] PCP - General Family Medicine 09/23/22 documented as of this encounter
--- OUTSIDE RECORDS SUMMARY | 2025-05-31 10:49 | XMS_ITS | Encounter Summary ---
Author Organization [employer] ([place], [place], [place], [place]) Address [address] [place] [address] Care Team Providers Care Software Maintenance Engineer Name Role Phone Yuan Mccracken MD Primary Care Provider [phone] Encounter Details Date Type Department Care Team (Late st Contact Info) Description 01/26/2021 Transcribed Document [facility] [place] [address] [place] [address] ProviderPerry MD [address] [place] [address] Social History Tobacco Use Types Packs/Day [...] Performed On: 01/28/2021 10:21 EDT by KIRILL COFFEY, LORENA General Information, PT Visit Type, PT [...] PT Additional Treatment Ordered By: CESIA WILSON, LORENA 01/26/2021 15:46 PT Additional Treatment Ordered By: FRANCISCO MACEDO PT Active Diagnoses : 01/16/2021 12:00 Acidosis [...] continue Date Met : 01/26/2021 EDT KIRILL COFFEY PT - 01/28/2021 11:06 EDT KIRILL COFFEY, PT - 01/28/2021 11:06 EDT [employer] Goals Mobility/Bed Mobility LTG PT Grid Goal [...] on filedocumented in this encounter Care Teams Software Maintenance Engineer Relationship Specialty Start Date End Date Yuan Mccracken MD [address] [place] [phone] PCP - General Family Medicine 09/23/22 documented as of this encounter
--- OUTSIDE RECORDS SUMMARY | 2025-05-31 10:49 | XMS_ITS | Encounter Summary ---
Author Organization [email or web address] ([place], [place], [place], [place]) Address [address] [place] [address] Care Team Providers Care Disease Education Specialist Name Role Phone Yuan Mccracken MD Primary Care Provider [phone] Encounter Details Date Type Department Care Team (Late st Contact Info) Description 01/31/2021 Transcribed Document [facility] [place] [facility] [place] [address] ProviderPerry MD [address] [place] [address] Social History Tobacco Use Types [...] [place] ProviderMD - 01/31/2021 10:44 AM CDT Stroke/Warfarin Instructions Entered On: 01/31/2021 10:44 EDT Performed On: 01/31/2021 10:44 EDT by UMESH BARRY RN Stroke/Warfarin Instructions Stroke/TIA Discharge Ins : N/A Warfarin Discharge Ins : N/A UMESH BARRY RN - 01/31/2021 10:44 EDT Electronically signed by Gayle Laguerre Conversion Ukrainian Folk Arts Instructor Cerner at 12/07/2022 6:10 PM CDT documented in this encounter Plan of Treatment Not on file documented as of this encounter Visit Diagnoses Not on filedocumented in this encounter Care Teams Disease Education Specialist Relationship Specialty Start Date End Date Yuan Mccracken MD [address] [place] [address] PCP - General Family Medicine 09/23/22 documented as of this encounter
--- OUTSIDE RECORDS SUMMARY | 2025-05-31 10:49 | XMS_ITS | Encounter Summary ---
Author Organization [employer] ([place], [place], [place], [place]) Address [address] [place] [address] Care Team Providers Care Twisting Frame Changer Name Role Phone Yuan Mccracken MD Primary Care Provider [phone] Encounter Details Date Type Department Care Team (Late st Contact Info) Description 01/18/2021 Transcribed Document [facility] Radiology [address] [place] [address] [place] [address] [place] [address] [address] [place] [address] Social History Tobacco Use Types Packs/Day Years [...] Gram= 1 Packet, Oral, Daily, PRN nystatin, 576101 Units= 5 mL, Swish and Spit, QID [...] on filedocumented in this encounter Care Teams Twisting Frame Changer Relationship Specialty Start Date End Date Yuan Mccracken MD [place] [address] PCP - General Family Medicine 09/23/22 documented as of this encounter
--- OUTSIDE RECORDS SUMMARY | 2025-05-31 10:49 | XMS_ITS | Encounter Summary ---
Author Organization [employer] ([place], [place], [place], [place]) Address [address] [place] [place] [address] Care Team Providers Care Cut Roll Machine Operator Name Role Phone Yuan cMcracken MD Primary Care Provider [phone] Encounter Details Date Type Department Care Team (Late st Contact Info) Description 01/25/2021 Transcribed Document [facility] [place] Family Medicine [address] [place] [address] ProviderPerry MD [address] [place], [place] [phone] Social History Tobacco Use Types Packs/Day Years Used Date Smoking Tobacco: Never Assessed Comments Unknown Sex and Gender Information Value Date Recorded Sex Assigned at Not on file Legal Sex Female 12:32 PM CDT Gender Identity Not on file Sexual Orientation Not on file documented as of this encounter Miscellaneous Notes * Cerner Conversion Note - [place] ProviderMD - 01/25/2021 4:00 AM CDT Height and Weight, Routine Entered On: 01/25/2021 5:10 EDT Performed On: 01/25/2021 4:00 EDT by Marcella Hernandez RN-TRAVELER Height and Weight, Routine Routine Weight Source : Bed scale Routine Weight Entry Format : [place] Routine Weight, Pounds : 277 lb Routine Weight Calculation : 125.91 kg Height Source : Stated Height Entry Format : [place] Height, Feet : 5 ft Height, Inches : 4 Inch Clinical Height : 162.56 cm Body Surface Area (BSA), Routine : 2.25 m2 Body Mass Index (BMI), Routine : 47.65 kg/m2 David, Rincy, RN-TRAVELER - 01/25/2021 5:07 EDT Electronically signed by [facility] Conversion Bobcat Operator Cerner at 12/07/2022 6:06 PM CDT documented in this encounter Plan of Treatment Not on file documented as of this encounter Visit Diagnoses Not on filedocumented in this encounter Care Teams Cut Roll Machine Operator Relationship Specialty Start Date End Date Yuan Mccracken MD [address] [place] [phone] PCP - General Family Medicine 09/23/22 documented as of this encounter
--- OUTSIDE RECORDS SUMMARY | 2025-05-31 10:49 | XMS_ITS | Encounter Summary ---
Author Organization [employer] ([place], [place], [place], [place]) Address [address] [place] [address] Care Team Providers Care Mobile Health Vehicle Operator Name Role Phone Yuan Mccracken MD Primary Care Provider [phone] Encounter Details Date Type Department Care Team (Late st Contact Info) Description 01/18/2021 Transcribed Document [facility] [place] [address] [place] [address] ProviderPerry MD [address] [place] [address] Social History Tobacco Use Types Packs/Day [...] hold Inability to Treat Comment : Per STEPHEN Alaniz, hold for respiratory issues. OT will f/u as schedule permits. DAMON OLIVIER OTR/Barry - 01/18/2021 11:11 EDT documented in this encounter Plan of Treatment Not on file documented as of this encounter Visit Diagnoses Not on filedocumented in this encounter Care Teams Mobile Health Vehicle Operator Relationship Specialty Start Date End Date Yuan Mccracken MD [address] [place] [phone] PCP - General Family Medicine 09/23/22 documented as of this encounter
--- OUTSIDE RECORDS SUMMARY | 2025-05-31 10:49 | XMS_ITS | Encounter Summary ---
Author Organization [employer] ([place], [place], [place], [place]) Address [address] [place] [address] Care Team Providers Care Custodial Foreman Name Role Phone Yuan Mccracken MD Primary Care Provider [phone] Encounter Details Date Type Department Care Team (Late st Contact Info) Description 01/18/2021 Transcribed Document [facility] [place] [address] [place] [address] ProviderPerry MD [address] [place] [address] Social History Tobacco Use Types [...] 01/18/2021 4:40 EDT Electronically signed by Carlotta [facility] Conversion Animal Shelter Worker Cerner at 12/07/2022 6:26 PM CDT documented in this encounter Plan of Treatment Not on file documented as of this encounter Visit Diagnoses Not on filedocumented in this encounter Care Teams Custodial Foreman Relationship Specialty Start Date End Date Yuan Mccracken MD [address] [place] [address] PCP - General Family Medicine 09/23/22 documented as of this encounter
--- OUTSIDE RECORDS SUMMARY | 2025-05-31 10:49 | XMS_ITS | Encounter Summary ---
Author Organization [employer] ([place], [place], [place], [place]) Address [address] [place] [address] Care Team Providers Care Control And Recovery Combat Rescue Name Role Phone Yuan Mccracken MD Primary Care Provider [phone] Encounter Details Date Type Department Care Team (Late st Contact Info) Description 01/24/[address] [facility] [place] [facility] [place] [address] ProviderPerry MD [address] [place] [address] Social History Tobacco Use Types Packs/Day Years Used Date Smoking Tobacco: Never Assessed Comments Unknown Sex and Gender Information Value Date Recorded Sex Assigned at Not on file Legal Sex Female 12:32 PM CDT Gender Identity Not on file Sexual Orientation Not on file documented as of this encounter Miscellaneous Notes * Cerner Conversion Note - [place] ProviderMD - 01/24/2021 5:00 AM CDT Chart Check - Review Order Profile Entered On: 01/24/2021 5:28 EDT Performed On: 01/24/2021 5:00 EDT by Marcella Hernandez RN-TRAVELEDY Chart Check Powerplans Initiated/Discontinued as Appropriate : Yes All Active Orders Reviewed : Yes Marcella Hernandez RN-TRAVELER - 01/24/2021 5:28 EDT documented in this encounter Plan of Treatment Not on file documented as of this encounter Visit Diagnoses Not on filedocumented in this encounter Care Teams Control And Recovery Combat Rescue Relationship Specialty Start Date End Date Yuan Mccracken MD [address] [place] [address] PCP - General Family Medicine 09/23/22 documented as of this encounter
--- OUTSIDE RECORDS SUMMARY | 2025-05-31 10:49 | XMS_ITS | Encounter Summary ---
Author Organization [employer] ([place], [place], [place], [place]) Address [address] [place] [address] Care Team Providers Care Manager Planning Name Role Phone Yuan Mccracken MD Primary Care Provider [phone] Encounter Details Date Type Department Care Team (Late st Contact Info) Description 01/18/2021 Transcribed Document [facility] [place] [facility] [place] [address] ProviderPerry MD [address] [place] [address] Social History Tobacco Use Types Packs/Day Years Used Date Smoking Tobacco: Never Assessed Comments Unknown Sex and Gender Information Value Date Recorded Sex Assigned at Not on file Legal Sex Female 12:32 PM CDT Gender Identity Not on file Sexual Orientation Not on file documented as of this encounter Miscellaneous Notes * Cerner Conversion Note - [place] ProviderMD - 01/18/2021 5:00 AM CDT Chart Check [...] filedocumented in this encounter Care Teams Manager Planning Relationship Specialty Start Date End Date Yuan Mccracken MD [address] [place] [phone] PCP - General Family Medicine 09/23/22 documented as of this encounter
--- OUTSIDE RECORDS SUMMARY | 2025-05-31 10:49 | XMS_ITS | Encounter Summary ---
Author Organization [employer] ([place], [place], [place], [place]) Address [address] [place] [address] Care Team Providers Care Inspector Screen Printing Name Role Phone Yuan Mccracken MD Primary Care Provider [phone] Encounter Details Date Type Department Care Team (Late st Contact Info) Description 01/19/2021 Transcribed Document [facility] [place] [address] ProviderPerry MD [address] [place] [address] Social History Tobacco Use Types Packs/Day [...] 1960 Associated Diagnoses: None Author: MEG CARRASCO MD-AARTI Subjective Stable overnight. Continues to improve. Objective VS/Measurements Vitals Signs (last 24 hrs) Last Charted Minimum Maximum Temp 99.1 (JANUARY 19 08:00) 98.0 (JANUARY 19 04:00) 99 (JANUARY 18 16:00) Mon HR 79 (MAY 31 09:00) 63 (JANUARY 19 05:00) 81 (JANUARY [...] On antibiotics. High risk and complexity patient Electronically signed by Carlotta, Gayle Conversion Senior Manufacturing Supervisor Cerner at 12/07/2022 6:03 PM CDT documented in this encounter Plan of Treatment Not on file documented as of this encounter Visit Diagnoses Not on filedocumented in this encounter Care Teams Inspector Screen Printing Relationship Specialty Start Date End Date Yuan Mccracken MD [address] [place] [phone] PCP - General Family Medicine 09/23/22 documented as of this encounter
--- OUTSIDE RECORDS SUMMARY | 2025-05-31 10:49 | XMS_ITS | Encounter Summary ---
Author Organization [employer] ([place], [place], [place], [place]) Address [address] [place] [address] Care Team Providers Care Microfilming Document Preparer Name Role Phone Yuan Mccracken MD Primary Care Provider [phone] Encounter Details Date Type Department Care Team (Late st Contact Info) Description 01/26/2021 Transcribed Document [facility] [place] [address] [place] [address] ProviderPerry MD [address] [place] [phone] Social History Tobacco Use Types Packs/Day Years [...] RT_Q6H, PRN: Wheezing Eliquis: 5 mg, Oral, [id number] Lac-Hydrin 12% topical lotion: 1 Application, Topical, [...] mL: 1,750 mg, 250 mL/Hr, IV Piggyback, [id number] Physical Examination VS/Measurements Vitals Signs (last 24 [...] 12:21) 80 (JAN 26 12:21) 102 (JAN 26:07) SpO2 100 (JAN 26 12:21) 95 (JAN 25 21:42) 100 (JAN 25 17:23) , Measurements from flowsheet : Measurements 01/25/2021 4:00 EDT Height Source Stated Height Entry Format [place] Height/Length, KYRGYZ (ft) 5 ft Height/Length KYRGYZ 4 Inch CLINICALHEIGHT 162.56 cm Routine Weight Source Bed scale Routine Weight Entry Format [place] Routine Weight, Pounds 277 lb Routine Weight [...] four charted values) WBC H 11.6 (JAN 07) H 12.4 (JAN 06) H 13.0 (JAN 05) H 14.7 (JAN 04) HB L 8.3 (JAN 07) L 8.0 (JAN 06) L 8.4 (TOM 05) L 8.8 (TOM 04) HCT L 27.7 (TOM 07) L 26.8 (TOM 06) L 29.0 (TOM 05) L 29.8 (TOM 04) Plt H 414 (TOM 07) H 392 (TOM 06) H 399 (TOM 05) H 378 (TOM 04) Na 141 (TOM 07) 137 (TOM 06) 137 (TOM 05) 137 (TOM 04) [...] 16) PT 11.9 (JAN 01) INR 1.1 (TOM 01) AST 20 (TOM 06) 25 (TOM 05) [...] consult 01/23 -- probiotic Electronically signed by Carlotta [facility] Conversion Footwear Factory Worker Cerner at 12/07/2022 6:03 PM CDT documented in this encounter Plan of Treatment Not on file documented as of this encounter Visit Diagnoses Not on filedocumented in this encounter Care Teams Microfilming Document Preparer Relationship Specialty Start Date End Date Yuan Mccracken MD [address] [place] [phone] PCP - General Family Medicine 09/23/22 documented as of this encounter
--- OUTSIDE RECORDS SUMMARY | 2025-05-31 10:49 | XMS_ITS | Encounter Summary ---
Author Organization [employer] ([place], [place], [place], [place]) Address [address] [place] [address] Care Team Providers Care Hog Dropper Name Role Phone Yuan Mccracken MD Primary Care Provider [phone] Encounter Details Date Type Department Care Team (Late st Contact Info) Description 01/25/2021 Transcribed Document [facility] [place] [facility] [place] [address] ProviderPer[place] MD [address] [place] [phone] Social History Tobacco Use Types Packs/Day Years Used Date Smoking Tobacco: Never Assessed Comments Unknown Sex and Gender Information Value Date Recorded Sex Assigned at Not on file Legal Sex Female 12:32 PM CDT Gender Identity Not on file Sexual Orientation Not on file documented as of this encounter Miscellaneous Notes * Cerner Conversion Note - [place] ProviderMD - 01/25/2021 2:00 AM CDT Sequencing Machine Operator Details Entered On: 01/25/2021 3:35 EDT Performed [...] 01/25/2021 3:35 EDT Electronically signed by Carlotta [facility] Conversion Switchman Supervisor Cerner at 12/07/2022 6:05 PM CDT documented in this encounter Plan of Treatment Not on file documented as of this encounter Visit Diagnoses Not on filedocumented in this encounter Care Teams Hog Dropper Relationship Specialty Start Date End Date Yuan Mccracken MD [address] [place] [address] PCP - General Family Medicine 09/23/22 documented as of this encounter
--- OUTSIDE RECORDS SUMMARY | 2025-05-31 10:49 | XMS_ITS | Encounter Summary ---
Author Organization [employer] ([place], [place], [place], [place]) Address [address] [place] [address] Care Team Providers Care Manager Membership Name Role Phone Yuan Mccracken MD Primary Care Provider [phone] Encounter Details Date Type Department Care Team (Late st Contact Info) Description 01/23/2021 Transcribed Document [facility] [place] [address] [place] [address] ProviderPerry MD [address] [place] [phone] Social History Tobacco Use Types Packs/Day Years [...] 01/23/2021 12:14 EDT by Maryjane Gonzalez V, Laser Engineer Manager Baby Care Management Progress Note Discharge Arrangements : Patient Post-Acute Information Patient Name: CHANI VELASQUEZ Gender: Female : 56 Age: 60 Years No Post-Acute Placement(s) Listed No Post-Acute Service(s) Listed No [place] Referral(s) Listed Discharge Options Discussed with Patient : Acute rehabilitation, Home Health, [facility] Barriers to Discharge Identified : Clinical Condition of Patient Barriers to Discharge Unresolved : Clinical Condition of Patient Is the Patient Meeting Medical Necessity : Yes Physician Agreeable to Move Forward with D/C Plan? : Yes Maryjane Gonzalez V Laser Engineer [facility] - 01/23/2021 12:14 EDT Narrative Progress Note Narrative Progress Note : HD#6, ELOS-not recorded, RRS-Moderate, Boost-3 ID following and recommending culture right leg wound and possible vascular consult. On IV Vanc and Zosyn. 3L 02/NC.,wound care. PT/OT recommending rehab. Referrals sent via [facility] to [facility] and SNF. Patient pending Medicaid. Placement susanna be difficult due to no insurance. is a resident at [facility]. Referral sent there too. CM to follow -- Historical Progress Note : HD#5, ELOS-not recorded, RRS-Moderate, Boost-3 Patient on 2L 02/NC. IV Abx-Vanc and Zosyn. Wound care by PT. PT/OT recommending rehab. CM sent referrals via [employer]. Patient's is a resident at [facility]. Patient is self pay and has no health or presription coverage. Placement may be difficult due to pending Medicaid status. CM to follow [facility]'s [facility] and [facility]F [facility] options. Maryjane Gonzalez V Laser Engineer [facility] - 01/22/21 13:50:41 Maryjane Gonzalez Social Worker [facility] - 01/23/2021 12:14 EDT documented in this encounter Plan of Treatment Not on file documented as of this encounter Visit Diagnoses Not on filedocumented in this encounter Care Teams Manager Membership Relationship Specialty Start Date End Date Yuan Mccracken MD [address] [place] [phone] PCP - General Family Medicine 09/23/22 documented as of this encounter
--- OUTSIDE RECORDS SUMMARY | 2025-05-31 10:49 | XMS_ITS | Encounter Summary ---
Author Organization [employer] ([place], [place], [place], [place]) Address [address] [place] [address] Care Team Providers Care Pharmacy Technologist Name Role Phone Yuan Mccracken MD Primary Care Provider Encounter Details Date Type Department Care Team (Late st Contact Info) Description 01/18/2021 Transcribed Document [facility] [place] [facility] [place] [address] ProviderPerry MD [address] [place] [address] Social History Tobacco Use Types [...] Nunes MD - 01/18/2021 2:00 AM CDT Parachute Rigger Details Entered On: 01/18/2021 2:46 EDT Performed [...] 01/18/2021 2:46 EDT Electronically signed by Carlotta [facility] Conversion Cultured Marble Products Maker Cerner at 12/07/2022 6:06 PM CDT documented in this encounter Plan of Treatment Not on file documented as of this encounter Visit Diagnoses Not on filedocumented in this encounter Care Teams Pharmacy Technologist Relationship Specialty Start Date End Date Yuan Mccracken MD [address] [place] [address] PCP - General Family Medicine 09/23/22 documented as of this encounter
--- OUTSIDE RECORDS SUMMARY | 2025-05-31 10:49 | XMS_ITS | Encounter Summary ---
Author Organization [employer] ([place], [place], [place], [place]) Address [address] [place] [address] Care Team Providers Care Nurse Unit Manager Name Role Phone Yuan Mccracken MD Primary Care Provider [phone] Encounter Details Date Type Department Care Team (Late st Contact Info) Description 01/31/2021 Transcribed Document [facility] [place] [facility] [place] [address] ProviderPerry MD [address] [place] [address] Social History Tobacco Use Types Packs/Day Years Used Date Smoking Tobacco: Never Assessed Comments Unknown Sex and Gender Information Value Date Recorded Sex Assigned at Not on file Legal Sex Female 12:32 PM CDT Gender Identity Not on file Sexual Orientation Not on file documented as of this encounter Miscellaneous Notes * Cerner Conversion Note - Perry ProviderMD - 01/31/2021 2:00 AM CDT Hazardous Substances Engineer Details Entered On: 01/31/2021 4:41 EDT Performed [...] ANTONIO OTERO RN - 01/31/2021 4:41 EDT Electronically signed by Carlotta [facility] Conversion Handbag Framer Cerner at 12/07/2022 6:04 PM CDT documented in this encounter Plan of Treatment Not on file documented as of this encounter Visit Diagnoses Not on filedocumented in this encounter Care Teams Nurse Unit Manager Relationship Specialty Start Date End Date Yuan Mccracken MD [address] [place] [phone] PCP - General Family Medicine 09/23/22 documented as of this encounter
--- OUTSIDE RECORDS SUMMARY | 2025-05-31 10:49 | XMS_ITS | Referral Summary ---
Author Organization [employer] ([place], [place], [place], [place]) Address [address] [place] [address] Care Team Providers Care Locomotive Inspector Name Role Phone Yuan Mccracken MD Primary Care Provider [phone] Allergies No known active allergies Medications aspirin [...] Years Used Date Smoking Tobacco: Never Assessed Family and Community Support Answer Jay e Recorded Help with Day to Day Activities Not on file 09/08/2023 Feeling Lonely or Isolated Not on file 09/08 Educational Attainment Answer Date Castro rded Speak language other than Mohawk at home Not on file 09/08/2023 Want help with school or training Not on file 09/08/2023 Substance Use Answer Date Recorded Used [...] Plan of Treatment Not on file Insurance [facility] Advance Directives For more information, please contact: [phone] * Full Code (Latest Code Status on File) Date Activated Date Inactivated Comments 09/23/2022 12:35 PM 09/24/2022 4:32 AM * Full Code Date Activated Date Inactivated Comments 09/22/2022 11:34 PM 09/23/2022 12:35 PM Care Teams Locomotive Inspector Relationship Specialty Start Date End Date Yuan Mccracken MD [address] [place] [phone] PCP - General Family Medicine 09/23/22
--- OUTSIDE RECORDS SUMMARY | 2025-05-31 10:49 | XMS_ITS | Encounter Summary ---
Author Organization [employer] ([place], [place], [place], [place]) Address [address] [place] [address] Care Team Providers Care Developmental Specialist Name Role Phone Yuan Mccracken MD Primary Care Provider [phone] Encounter Details Date Type Department Care Team (Late st Contact Info) Description 01/24/2021 Transcribed Document [facility] [place] [facility] [address] ProviderPerry MD [address], [place] [phone] Social History Tobacco Use Types Packs/Day Years Used Date Smoking Tobacco: Never Assessed Comments Unknown Sex and Gender Information Value Date Recorded Sex Assigned at Not on file Legal Sex Female 12:32 PM CDT Gender Identity Not on file Sexual Orientation Not on file documented as of this encounter Miscellaneous Notes * Cerner Conversion Note - Perry ProviderMD - 01/24/2021 2:00 AM CDT Ski Production Supervisor Details Entered On: 01/24/2021 1:36 EDT Performed [...] 01/24/2021 1:36 EDT Electronically signed by Carlotta [facility] Conversion Certified Residential Medication Aide Cerner at 12/07/2022 6:20 PM CDT documented in this encounter Plan of Treatment Not on file documented as of this encounter Visit Diagnoses Not on filedocumented in this encounter Care Teams Developmental Specialist Relationship Specialty Start Date End Date Yuan Mccracken MD [address] [place] [address] PCP - General Family Medicine 09/23/22 documented as of this encounter
--- OUTSIDE RECORDS SUMMARY | 2025-05-31 10:49 | XMS_ITS | Encounter Summary ---
Author Organization [employer] ([place], [place], [place], [place]) Address [address] [place] [address] Care Team Providers Care Knot Cutter Name Role Phone Yuan Mccracken MD Primary Care Provider [phone] Encounter Details Date Type Department Care Team (Late st Contact Info) Description 01/25/2021 Transcribed Document [facility] [place] [facility] [place] [address] ProviderPerry MD [address] [place] [phone] Social History Tobacco Use Types Packs/Day Years [...] - Medical Apixaban 5 mg, Oral, Tab, [id number], Routine, Start 01/21/21 10:00:00 EDT, 01/21/21 9:43:00 [...] RT_Q4H Eliquis, 5 mg= 1 Tab, Oral, [id number] Lac-Hydrin 12% topical lotion, 1 Application, Topical, [...] mg= 1 Tab, Oral, BID, PRN nystatin, 186100 Units= 5 mL, Swish and Swallow , [...] Lymph # 1.35 x10(3)/uL 01/25/2021 07:06 EDT Mcintosh % 6.8 % 01/25/2021 07:06 EDT Mcintosh # 0.84 K/uL 01/25/2021 07:06 EDT Eos % 1.2 % 01/25/2021 07:06 EDT Eos # 0.15 x10(3)/uL 01/25/2021 07:06 EDT Baso % 0.2 % 01/25/2021 07:06 EDT Baso # 0.03 x10(3)/uL 01/25/2021 07:06 EDT Slide Review No 01/25/2021 07:06 EDT IG# 0.26 x10(3)/uL (High) 01/25/2021 07:06 EDT IG% 2.10 % (High) 01/25/2021 07:06 EDT Electronically signed by [facility] Conversion Infantry Operations Specialist Cerner at 12/07/2022 6:08 PM CDT documented in this encounter Plan of Treatment Not on file documented as of this encounter Visit Diagnoses Not on filedocumented in this encounter Care Teams Knot Cutter Relationship Specialty Start Date End Date Yuan Mccracken MD [address] [place] [phone] PCP - General Family Medicine 09/23/22 documented as of this encounter
--- OUTSIDE RECORDS SUMMARY | 2025-05-31 10:49 | XMS_ITS | Encounter Summary ---
Author Organization [employer] ([place], [place], [place], [place]) Address [address] [place] [address] Care Team Providers Care Regulatory Scientist Name Role Phone Yuan Mccracken MD Primary Care Provider [phone] Encounter Details Date Type Department Care Team (Late st Contact Info) Description 01/18/2021 Transcribed Document [place] Family [facility] [place] [address] ProviderPerry MD [address] [place] [address] Social History Tobacco Use Types Packs/Day [...] MAP 91 (JANUARY 18 10:00) 89 (JANUARY 17 22:30) 141 (JANUARY 17 12:00) SpO2 98 (JANUARY [...] on filedocumented in this encounter Care Teams Regulatory Scientist Relationship Specialty Start Date End Date Yuan Mccracken MD [address] [place] [phone] PCP - General Family Medicine 09/23/22 documented as of this encounter
--- OUTSIDE RECORDS SUMMARY | 2025-05-31 10:49 | XMS_ITS | Encounter Summary ---
Author Organization [employer] ([place], [place], [place], [place]) Address [address] [place] [address] Care Team Providers Care Manager Services Name Role Phone Yuan Mccracken MD Primary Care Provider [phone] Encounter Details Date Type Department Care Team (Late st Contact Info) Description 01/25/2021 Transcribed Document [facility] [place] [address] ProviderPerry MD [address] [place] [address] Social History Tobacco Use Types Packs/Day Years Used Date Smoking Tobacco: Never Assessed Comments Unknown Sex and Gender Information Value Date Recorded Sex Assigned at Not on file Legal Sex Female 12:32 PM CDT Gender Identity Not on file Sexual Orientation Not on file documented as of this encounter Miscellaneous Notes * Cerner Conversion Note - Perry ProviderMD - 01/25/2021 5:00 AM CDT Chart Check - Review Order Profile Entered On: 01/25/2021 5:10 EDT Performed On: 01/25/2021 5:00 EDT by Marcella Hernandez RN-TRAVELEDY Chart Check Powerplans Initiated/Discontinued as Appropriate : Yes All Active Orders Reviewed : Yes Marcella Hernandez RN-TRAVELER - 01/25/2021 5:10 EDT documented in this encounter Plan of Treatment Not on file documented as of this encounter Visit Diagnoses Not on filedocumented in this encounter Care Teams Manager Services Relationship Specialty Start Date End Date Yuan Mccracken MD [address] [place] [phone] PCP - General Family Medicine 09/23/22 documented as of this encounter
--- OUTSIDE RECORDS SUMMARY | 2025-05-31 10:49 | XMS_ITS | Clinical Summary ---
Author Organization [employer] ([place], [place], [place], [place]) Address [address] [place] [address] Care Team Providers Care Loan Officer Name Role Phone Yuan Mccracken MD Primary Care Provider [phone] Allergies No known active allergies Medications aspirin [...] Date Castro rded Speak language other than Faroese at home Not on file 09/08/2023 Want [...] - Risk 60-74 years 1-dose series) 2018 Falls Risk Screening 08/22/2024 COVID-19 VACCINE ( - 2024- season) 2025 02/18/2022, 06/05/2021, 04/22/2021 Influenza Vaccine (#1) 2025 Insurance [facility] Advance Directives For more information, please contact: [phone] * Full Code (Latest Code Status on File) Date Activated Date Inactivated Comments 09/23/2022 12:35 PM 09/24/2022 4:32 AM * Full Code Date Activated Date Inactivated Comments 09/22/2022 11:34 PM 09/23/2022 12:35 PM Care Teams Loan Officer Relationship Specialty Start Date End Date Yuan Mccracken MD [address] [place] [address] PCP - General Family Medicine 09/23/22
--- NOTE | 2025-05-31 11:00 | CA_ITS ---
FINAL REPORT TECHNIQUE: Real-time imaging was performed of the extracranial carotid arteries in transverse and longitudinal planes with color duplex evaluation of blood flow velocity. Spectral analysis was performed. The cervicovertebral arteries were also examined. Stenosis evaluation based on elevated velocity criteria. CLINICAL HISTORY: HTN, HLD, STENTS, SMOKER, dizziness, COPD, FERCHO, CAD FINDINGS: FINDINGS: RIGHT CAROTID: CCA PSV: 99 cm/sec ICA PSV: 116 cm/sec ECA PSV: 121 cm/sec ICA/CCA systolic flow velocity ratio: 1.2 Mild atherosclerotic plaque is noted. Narrowing is classified in the less than 50% category. LEFT CAROTID: CCA PSV: 113 cm/sec ICA PSV: 111 cm/sec ECA PSV: 111 cm/sec ICA/CCA systolic flow velocity ratio: 1.0 Mild atherosclerotic plaque is noted. Narrowing is classified in the less than 50% category. VERTEBRALS: Vertebral arteries are patent with antegrade flow and expected spectral waveforms. IMPRESSION: Less than 50% bilateral carotid artery stenosis. Patent vertebral arteries. Reviewed, Interpreted and Dictated by Shravan Solitario MD Transcribed by Marium Orozco Authenticated and [facility]
[2025-05-31 12:46] LABS: Anion Gap 18.0 mEq/L (5-15); Blood Urea Nitrogen 44 mg/dl (7-17); Calcium 9.4 mg/dl (8.4-10.2); Carbon Dioxide 21 mmol/L (22.0-30.0); Chloride 107 mmol/L (98-107); Creatinine,Serum 2.80 mg/dl (0.52-1.04); Estimated Glomerular Filt Rate 17 ml/min (>60); GFR (African American) 20 ML/MIN (>60); Glucose 90 mg/dl (74-100); Magnesium 1.9 mg/dl (1.6-2.3); Potassium 5.0 mmoL/L (3.5-5.1); Sodium 141 mmol/L (136-145)
== END 2025-05-31 23:59 | disposition home or self-care (01) ==
LOC: RT 10:43
PROVIDERS: PCP Family Medicine; Visit Provider Nurse Practitioner Family
DX: I65.23 Occlusion and stenosis of bilateral carotid arteries (principal); I10 Essential (primary) hypertension; E78.5 Hyperlipidemia, unspecified; I27.20 Pulmonary hypertension, unspecified; I25.10 Atherosclerotic heart disease of native coronary artery without angina pectoris; G47.33 Obstructive sleep apnea (adult) (pediatric); F17.200 Nicotine dependence, unspecified, uncomplicated; J44.9 Chronic obstructive pulmonary disease, unspecified
CPT/HCPCS: 36415; 80048; 83735; 93880

== ENCOUNTER 2025-06-10 14:06 | Outpatient (CLI) | payer MEDICARE, MEDICAID, SELFPAY ==
[2025-06-10 15:26] LABS: Chloride 105 mmol/L (98-107); Potassium 5.0 mmoL/L (3.5-5.1); Sodium 138 mmol/L (136-145)
[2025-06-10 15:29] LABS: Anion Gap 15.0 mEq/L (5-15); Blood Urea Nitrogen 39 mg/dl (7-17); Calcium 8.7 mg/dl (8.4-10.2); Carbon Dioxide 23 mmol/L (22.0-30.0); Creatinine,Serum 2.80 mg/dl (0.52-1.04); Estimated Glomerular Filt Rate 17 ml/min (>60); GFR (African American) 20 ML/MIN (>60); Glucose 82 mg/dl (74-100)
== END 2025-06-10 23:59 | disposition home or self-care (01) ==
LOC: LAB 14:08
PROVIDERS: PCP Family Medicine; Visit Provider Nurse Practitioner Family
DX: I50.30 Unspecified diastolic (congestive) heart failure (principal)
CPT/HCPCS: 36415; 80048

== ENCOUNTER 2025-06-17 12:45 | Outpatient (CLI) | payer MEDICARE, MEDICAID, SELFPAY ==
[2025-06-17 13:56] LABS: Chloride 107 mmol/L (98-107); Sodium 136 mmol/L (136-145)
[2025-06-17 13:57] LABS: Potassium 4.6 mmoL/L (3.5-5.1)
[2025-06-17 13:59] LABS: Blood Urea Nitrogen 35 mg/dl (7-17); Creatinine,Serum 1.90 mg/dl (0.52-1.04); Estimated Glomerular Filt Rate 26 ml/min (>60); GFR (African American) 32 ML/MIN (>60)
[2025-06-17 14:00] LABS: Anion Gap 10.6 mEq/L (5-15); Calcium 9.0 mg/dl (8.4-10.2); Carbon Dioxide 23 mmol/L (22.0-30.0); Glucose 82 mg/dl (74-100)
== END 2025-06-17 23:59 | disposition home or self-care (01) ==
LOC: LAB 12:47
PROVIDERS: PCP Family Medicine; Visit Provider Nurse Practitioner
DX: I50.30 Unspecified diastolic (congestive) heart failure (principal)
CPT/HCPCS: 36415; 80048

== ENCOUNTER 2025-06-28 08:22 | Day surgery (SDC) | payer MEDICARE, MEDICAID, SELFPAY ==
[2025-06-28] VITALS (7 sets, daily range): BP systolic 95–120; BP diastolic 43–67; PULSE 65–70; RESP 20; O2SAT 93–97; BMI 49.8
--- NOTE | 2025-06-28 07:10 | IR_ITS ---
APPROVED REPORT Patient Location: Outpatient PROCEDURES Right heart catheterization INDICATION Pulmonary hypertension Informed consent was obtained prior to the procedure. COMPLICATIONS NONE Estimated Blood Loss: LESS THAN 10 ML TECHNIQUE One percent lidocaine was used to anesthetize the right anterior aspect of the neck. A special events planner needle was used to identify the right internal jugular vein. Following this a larger cannulation needle was used to cannulate the right internal jugular vein and a wire was passed into the vein. Prior to the 7 Iranian sheath being inserted the wire was confirmed under fluoroscopic guidance to be in the inferior vena cava. A 7 Iranian sheath was introduced and a Landenberg-Giancarlo catheter was floated using hemodynamic waveforms in the pulmonary artery, right ventricle , and right atrium. Saturations were obtained in the pulmonary artery and the right atrium. At the end of the procedure the patient was transferred to the postop holding area in stable condition for sheath removal. ANGIOGRAPHIC RESULTS Right atrial pressure 12 mmHg Pulmonary artery occlusion pressure 14 mmHg Pulmonary artery pressure 35/22 mmHg PA saturation 73% Ordered saturation 100% IMPRESSION Mild pulmonary hypertension with persistently elevated pulmonary artery occlusion pressure PLAN 1. Continue with diuresis and possibly higher diuretics to decrease left-sided filling pressures Electronically signed by : Hermilo Peacock MD 06/28/2025 11:11:00
[2025-06-28 09:08] LABS: Hematocrit 29.8 % (37.0-47.0); Hemoglobin 10.0 g/dL (12.2-16.2); Immature Granulocytes % 0.8 %; Mean Corpuscular HGB Conc 33.6 g/dL (31.8-35.4); Mean Corpuscular Hemoglobin 35.5 pg (27.0-31.2); Mean Corpuscular Volume 105.7 fl (81-99); Nucleated Red Blood Cells % 0 %; Platelet Count 325 K/mm3 (142-424); Red Blood Count 2.82 M/mm3 (4.20-5.40); Red Cell Distribution Width-SD 51.1 fL; White Blood Count 10.1 K/mm3 (4.8-10.8)
[2025-06-28 09:31] LABS: Anion Gap 15.3 mEq/L (5-15); Blood Urea Nitrogen 37 mg/dl (7-17); Calcium 8.6 mg/dl (8.4-10.2); Carbon Dioxide 18 mmol/L (22.0-30.0); Chloride 107 mmol/L (98-107); Creatinine Clearance Estimated 23 mL/min (50-200); Creatinine,Serum 2.10 mg/dl (0.52-1.04); Estimated Glomerular Filt Rate 24 ml/min (>60); GFR (African American) 29 ML/MIN (>60); Glucose 102 mg/dl (74-100); Potassium 5.3 mmoL/L (3.5-5.1); Sodium 135 mmol/L (136-145)
[2025-06-28] MEDS: LIDOCAINE 1% 10ML MDV 10 ML IJ (10:33)
[2025-06-28] MEDS: HEPARIN 1,000 UNITS/500ML NS (CATH LAB) 3000 UNIT IV (10:33)
[2025-06-28] MEDS: 0.9 % SODIUM CHLORIDE 500 ML 25 ML IV (10:34)
[2025-06-28] MEDS: MIDAZOLAM HCL 1MG/ML 5ML VIAL 1 MG IV (10:56)
[2025-06-28] MEDS: FENTANYL 100MCG/2ML VIAL 50 MCG IV (10:56)
[2025-06-28 11:33] LABS: CATHL Arterial O2 SAT 73.1 % (90-100)
== END 2025-06-28 12:09 | disposition home or self-care (01) ==
LOC: CATHLAB 08:23
PROVIDERS: PCP Family Medicine; Visit Provider Internal Medicine
PROC: 4A023N7 Measurement of Cardiac Sampling and Pressure, Left Heart, Percutaneous Approach (ICD-10-PCS; CPT 93452; principal; 2025-06-28 08:45)
DX: I27.20 Pulmonary hypertension, unspecified (principal); I25.118 Atherosclerotic heart disease of native coronary artery with other forms of angina pectoris; R94.31 Abnormal electrocardiogram [ECG] [EKG]; R07.9 Chest pain, unspecified; I50.33 Acute on chronic diastolic (congestive) heart failure; I13.0 Hypertensive heart and chronic kidney disease with heart failure and stage 1 through stage 4 chronic kidney disease, or unspecified chronic kidney disease; N18.9 Chronic kidney disease, unspecified; E78.2 Mixed hyperlipidemia; J44.9 Chronic obstructive pulmonary disease, unspecified; R60.0 Localized edema; G47.33 Obstructive sleep apnea (adult) (pediatric); Z87.891 Personal history of nicotine dependence; Z79.82 Long term (current) use of aspirin; Z79.02 Long term (current) use of antithrombotics/antiplatelets; Z79.899 Other long term (current) drug therapy; Z95.5 Presence of coronary angioplasty implant and graft; Z82.49 Family history of ischemic heart disease and other diseases of the circulatory system
CPT/HCPCS: 80048; 82810; 85025; 93451; 99152; C1894; J1200; J1644; J3010; J7040

== ENCOUNTER 2025-07-15 10:08 | Outpatient (CLI) | payer MEDICARE, MEDICAID, SELFPAY ==
--- OUTSIDE RECORDS SUMMARY | 2025-07-15 10:24 | XMS_ITS | Encounter Summary ---
Author Organization [employer] ([place], [place], [place], [place], [place]) Address [address] [place] [address] Care Team Providers Care Forest Ecologist Name Role Phone Yuan Mccracken MD Primary Care Provider [phone] Encounter Details Date Type Department Care Team (Late st Contact Info) Description 01/16/2021 Transcribed Document [facility] [place] [address] [place] [address] ProviderPerry MD [address] [place] [address] Social History Tobacco Use Types [...] on filedocumented in this encounter Care Teams Forest Ecologist Relationship Specialty Start Date End Date Yuan Mccracken MD [address] [place] [address] PCP - General Family Medicine 09/23/22 documented as of this encounter
--- OUTSIDE RECORDS SUMMARY | 2025-07-15 10:24 | XMS_ITS | Encounter Summary ---
Author Organization [employer] ([place], [place], [place], [place], [place]) Address [address] [place] [address] Care Team Providers Care Washer Repairman Name Role Phone Yuan Mccracken MD Primary Care Provider [phone] Encounter Details Date Type Department Care Team (Late st Contact Info) Description 01/16/2021 Transcribed Document [facility] [place] [address] [place] [address] ProviderPerry MD [address] [place], [place] [phone] Social History Tobacco Use Types Packs/Day Years [...] with recent bedbugs. SKIN: Warm and dry. [place] areas of weeping are noted with foul [...] We will follow the patient with physician. /[id number] MD STEPHANIE Mejia/AQ / STEPHANIE / MODL /[id number] documented in this encounter Plan of Treatment Not on file documented as of this encounter Visit Diagnoses Not on filedocumented in this encounter Care Teams Washer Repairman Relationship Specialty Start Date End Date Yuan Mccracken MD [address] [place] [phone] PCP - General Family Medicine 09/23/22 documented as of this encounter
--- OUTSIDE RECORDS SUMMARY | 2025-07-15 10:24 | XMS_ITS | Encounter Summary ---
Author Organization [employer] ([place], [place], [place], [place], [place]) Address [address] [place] [address] Care Team Providers Care Anesthesiologists' Assistant Name Role Phone Yuan Mccracken MD Primary Care Provider [phone] Encounter Details Date Type Department Care Team (Late st Contact Info) Description 01/16/2021 Transcribed Document [facility] [place] [address] [place] [address] ProviderPerry MD [address] [place] [address] Social History Tobacco Use Types Packs/Day Years Used Date Smoking Tobacco: Never Assessed Comments Unknown Sex and Gender Information Value Date Recorded Sex Assigned at Not on file Legal Sex Female 12:32 PM CDT Gender Identity Not on file Sexual Orientation Not on file documented as of this encounter Miscellaneous Notes * Cerner Conversion Note - Historical ProviderMD - 01/16/2021 5:39 PM CDT Nutrition [...] 01/19/2021 11:05 EDT Electronically signed by Carlotta [facility] Conversion Capital Equipment Specialist Cerner at 12/07/2022 6:08 PM CDT documented in this encounter Plan of Treatment Not on file documented as of this encounter Visit Diagnoses Not on filedocumented in this encounter Care Teams Anesthesiologists' Assistant Relationship Specialty Start Date End Date Yuan Mccracken MD [address] [place] [address] PCP - General Family Medicine 09/23/22 documented as of this encounter
--- OUTSIDE RECORDS SUMMARY | 2025-07-15 10:24 | XMS_ITS | Encounter Summary ---
Author Organization [employer] ([place], [place], [place], [place], [place]) Address [address] [place] [address] Care Team Providers Care Theoretical Physicist Name Role Phone Yuan Mccracken MD Primary Care Provider [phone] Encounter Details Date Type Department Care Team (Late st Contact Info) Description 01/20/2021 Transcribed Document [facility] Cardiology [address] [place] [phone] [place] [address] [place] [address] [address] [place] [address] Social History Tobacco Use Types Packs/Day Years [...] None Author: GRUPO SMITH MD-CAR BASIC Primary News Content Specialist: None Subjective Reconsulted; new onset a-fib. Started [...] 24 Hours) Radiology Results (Last 48 hours) [id number] -- 01/16/2021 19:34 CR Chest 1 Vw [...] for now. DC sub q. Decision for termite treater OAC pending clinical course 01/17/2021 No indication for further cardiac testing at this time. Cardiology will sign off. documented in this encounter Plan of Treatment Not on file documented as of this encounter Visit Diagnoses Not on filedocumented in this encounter Care Teams Theoretical Physicist Relationship Specialty Start Date End Date Yuan Mccracken MD [facility] [place] [address] PCP - General Family Medicine 09/23/22 documented as of this encounter
--- OUTSIDE RECORDS SUMMARY | 2025-07-15 10:24 | XMS_ITS | Encounter Summary ---
Author Organization [employer] ([place], [place], [place], [place], [place]) Address [address] [place] [address] Care Team Providers Care Cutting Torch Operator Name Role Phone Yuan Mccracken MD Primary Care Provider [phone] Encounter Details Date Type Department Care Team (Late st Contact Info) Description 01/16/2021 Transcribed Document [facility] [place] [address] [place] [address] ProviderPerry MD [address] [place] [address] Social History Tobacco Use Types [...] 01/16/2021 17:40 EDT Electronically signed by Carlotta [facility] Conversion Material Handler 1St Shift Cerner at 12/07/2022 6:10 PM CDT documented in this encounter Plan of Treatment Not on file documented as of this encounter Visit Diagnoses Not on filedocumented in this encounter Care Teams Cutting Torch Operator Relationship Specialty Start Date End Date Yuan Mccracken MD [facility] [place] [address] PCP - General Family Medicine 09/23/22 documented as of this encounter
--- OUTSIDE RECORDS SUMMARY | 2025-07-15 10:24 | XMS_ITS | Encounter Summary ---
Author Organization [employer] ([place], [place], [place], [place], [place]) Address [address] [place] [address] Care Team Providers Care Psychiatric Social Worker Supervisor Name Role Phone Yuan Mccracken MD Primary Care Provider [phone] Encounter Details Date Type Department Care Team (Late st Contact Info) Description 01/20/2021 Transcribed Document [facility] [place] [address] [place] [address] ProviderPerry MD [address] [place], [place] [phone] Social History Tobacco Use Types Packs/Day Years [...] 01/20/2021 9:21 EDT by Kassie Crawford Patient Engagement Lead Godwin Phone Call for Consults Consult Phone Call/Page Attempt : First call Consult Reason : for new onset afib RVR overnight Physician Requesting Consult : PRINCESS RIVERA MD Provider Service Notified Name : Cardiology Kassie Crawford Patient Engagement Lead I - 01/20/2021 10:32 EDT Electronically signed by Gayle Laguerre Conversion Copper Roller Handler Printing Cerner at 12/07/2022 6:23 PM CDT documented in this encounter Plan of Treatment Not on file documented as of this encounter Visit Diagnoses Not on filedocumented in this encounter Care Teams Psychiatric Social Worker Supervisor Relationship Specialty Start Date End Date Yuan Mccracken MD [address] [place] [phone] PCP - General Family Medicine 09/23/22 documented as of this encounter
--- OUTSIDE RECORDS SUMMARY | 2025-07-15 10:24 | XMS_ITS | Encounter Summary ---
Author Organization [employer] ([place], [place], [place], [place], [place]) Address [address] [place] [address] Care Team Providers Care Reflector Driller And Deburrer Name Role Phone Yuan Mccracken MD Primary Care Provider [phone] Encounter Details Date Type Department Care Team (Late st Contact Info) Description 01/27/2021 Transcribed Document [facility] [place] [facility] [place] [address] ProviderPerry MD [address] [place], [place] [phone] Social History Tobacco Use Types Packs/Day Years [...] Last Charted Minimum Maximum Temp 98.2 (JAN 08 05:29) 97.3 (TOM 07 20:32) 98.2 (JAN 26 17:52) Apical HR 74 (TOM 08 08:36) 72 (TOM 07 20:38) 74 (TOM 08 08:36) Mon HR 66 (TOM 08 08:52) 61 (TOM 07 23:56) 74 (TOM 07 17:52) Resp Rate 16 (JAN 08 08:52) 16 (JAN 08 08:46) 18 (JAN 07 12:21) SBP 112 (TOM 08 05:29) 112 (TOM 08 05:29) H 142 (JAN 26 17:52) DBP 65 (JAN 08 05:29) 63 (TOM 07 12:21) 81 (TOM 07 17:52) MAP 82 (JAN 08 05:29) 80 (TOM 07 12:21) 96 [...] (JAN 20) AST 16 (JAN 08) 20 (TOM 06) 25 (TOM 05) H 50 (JANUARY 19) ALT 18 (JAN 08) 21 (TOM 06) 28 (JAN 05) 36 (JANUARY 19) [...] changes. Thank you, Andria Lan, PharmD Resident [phone] Electronically signed by [facility] Conversion Footwear Factory Worker Cerner at 12/07/2022 6:02 PM CDT documented in this encounter Plan of Treatment Not on file documented as of this encounter Visit Diagnoses Not on filedocumented in this encounter Care Teams Reflector Driller And Deburrer Relationship Specialty Start Date End Date Yuan Mccracken MD [facility] [place] [address] PCP - General Family Medicine 09/23/22 documented as of this encounter
--- OUTSIDE RECORDS SUMMARY | 2025-07-15 10:24 | XMS_ITS | Encounter Summary ---
Author Organization [employer] ([place], [place], [place], [place], [place]) Address [address] [place] [address] Care Team Providers Care Transactional Paralegal Name Role Phone Yuan Mccracken MD Primary Care Provider [phone] Encounter Details Date Type Department Care Team (Late st Contact Info) Description 01/16/2021 Transcribed Document [facility] [place] Medicine [facility] [place] [address] ProviderPerry MD [address] [place], [place] [phone] Social History Tobacco Use Types Packs/Day Years [...] EDT Height Source Stated Height Entry Format [place] Height/Length, KAZAKH (ft) 5 ft Height/Length KAZAKH 4 Inch CLINICALHEIGHT 162.56 cm Pillager Body Weight 54.3 kg Weight Source, ED Critical estimated dosing weight Weight Entry Format [place] Weight Russian lb 270 lb CLINICALWEIGHT 122.73 kg Body [...] C-SSRS: ED Clinical Reconciliation: ED Isolation: ED hollow handle bench worker: Lactic Acid Level with Reflex if Indicated: [...] tablet: 1,300 mg, 2 Tab, Oral, 1-Time. manager monitoring: Normal sinus rhythm. Electrocardiogram: Time 01/16/2021 18:20:00, rate 110, normal sinus rhythm, No ST changes, no ectopy, normal UT & QRS intervals, EP Interp. Results review: [...] JARA MD-NEP, For elevated creatinine, electrolyte imbalance, Field Sales Manager Notified by Physician, Group/Instructions: Nephrology. Notes: I certify that the MLP/SEO CONSULTANT performed the services as delegated. , Discussed with Dr. Goss and agrees with plan of care.. documented in this encounter Plan of Treatment Not on file documented as of this encounter Visit Diagnoses Not on filedocumented in this encounter Care Teams Transactional Paralegal Relationship Specialty Start Date End Date Yuan Mccracken MD [address] [place] [phone] PCP - General Family Medicine 09/23/22 documented as of this encounter
--- OUTSIDE RECORDS SUMMARY | 2025-07-15 10:24 | XMS_ITS | Encounter Summary ---
Author Organization [employer] ([place], [place], [place], [place], [place]) Address [address] [place] [address] Care Team Providers Care Stereotyper Helper Name Role Phone Yuan Mccracken MD Primary Care Provider [phone] Encounter Details Date Type Department Care Team (Late st Contact Info) Description 01/16/2021 Transcribed Document [facility] [place] [address] [place] [address] ProviderPerry MD [address] [place] [address] Social History Tobacco Use Types [...] 01/16/2021 20:38 EDT Electronically signed by Carlotta [facility] Conversion Oracle Ascp Consultant Cerner at 12/07/2022 6:05 PM CDT documented in this encounter Plan of Treatment Not on file documented as of this encounter Visit Diagnoses Not on filedocumented in this encounter Care Teams Stereotyper Helper Relationship Specialty Start Date End Date Yuan Mccracken MD [address] [place] [phone] PCP - General Family Medicine 09/23/22 documented as of this encounter
--- OUTSIDE RECORDS SUMMARY | 2025-07-15 10:24 | XMS_ITS | Encounter Summary ---
Author Organization [employer] ([place], [place], [place], [place], [place]) Address [address] [place] [address] Care Team Providers Care Fairing Man Name Role Phone Yuan Mccracken MD Primary Care Provider [phone] Encounter Details Date Type Department Care Team (Late st Contact Info) Description 01/20/2021 Transcribed Document [facility] [place] [address] [place] [address] ProviderPerry MD [address] [place] [address] Social History Tobacco Use Types [...] currently due to pt recently discharged from [facility] to a SNF Persons [...] ALFRED RAPHAEL, PT - 01/21/2021 9:05 EDT Agriculture Scientist Goals Mobility/Bed Mobility LTG PT Grid Goal [...] Information : Open area on coccyx was [id number] and was pink. She got a 3 [...] on filedocumented in this encounter Care Teams Fairing Man Relationship Specialty Start Date End Date Yuan Mccracken MD [address] [place] [phone] PCP - General Family Medicine 09/23/22 documented as of this encounter
--- OUTSIDE RECORDS SUMMARY | 2025-07-15 10:25 | XMS_ITS | Encounter Summary ---
Author Organization [employer] ([place], [place], [place], [place], [place]) Address [address] [place] [address] Care Team Providers Care Vacuum Drier Operator Name Role Phone Yuan Mccracken MD Primary Care Provider [phone] Encounter Details Date Type Department Care Team (Late st Contact Info) Description 01/26/2021 Transcribed Document [facility] [place] [address] [place] [address] ProviderPerry MD [address] [place], [place] [id number] Social History Tobacco Use Types Packs/Day Years [...] Bronchodilator Assessment Score : 2 SAMUEL ADDISON, GRINDING MACHINE OPERATOR PORTABLE - 01/26/2021 3:47 EDT Electronically signed by Carlotta [facility] Conversion Developer Advocate Cerner at 12/07/2022 6:16 PM CDT documented in this encounter Plan of Treatment Not on file documented as of this encounter Visit Diagnoses Not on filedocumented in this encounter Care Teams Vacuum Drier Operator Relationship Specialty Start Date End Date Yuan Mccracken MD [address] [place] [phone] PCP - General Family Medicine 09/23/22 documented as of this encounter
--- OUTSIDE RECORDS SUMMARY | 2025-07-15 10:25 | XMS_ITS | Encounter Summary ---
Author Organization [employer] ([place], [place], [place], [place], [place]) Address [address] [place] [address] Care Team Providers Care Rental Clerk Tool And Equipment Name Role Phone Yuan Mccracken MD Primary Care Provider [phone] Encounter Details Date Type Department Care Team (Late st Contact Info) Description 01/28/2021 Transcribed Document [facility] [place] [facility] [place] [address] ProviderPerry MD [address] [place] [address] Social History Tobacco Use Types [...] Perry ProviderMD - 01/28/2021 2:00 AM CDT Doughnut Machine Operator Details Entered On: 01/28/2021 2:31 EDT Performed [...] 01/28/2021 2:30 EDT Electronically signed by Carlotta [facility] Conversion Credit Support Counselor Cerner at 12/07/2022 6:13 PM CDT documented in this encounter Plan of Treatment Not on file documented as of this encounter Visit Diagnoses Not on filedocumented in this encounter Care Teams Rental Clerk Tool And Equipment Relationship Specialty Start Date End Date Yuan Mccracken MD [address] [place] [address] PCP - General Family Medicine 09/23/22 documented as of this encounter
--- OUTSIDE RECORDS SUMMARY | 2025-07-15 10:25 | XMS_ITS | Encounter Summary ---
Author Organization [employer] ([place], [place], [place], [place], [place]) Address [address] [place] [address] Care Team Providers Care Cutch Cleaner Name Role Phone Yuan Mccracken MD Primary Care Provider [phone] Encounter Details Date Type Department Care Team (Late st Contact Info) Description 01/26/2021 Transcribed Document [facility] [place] [address] [place] [address] ProviderPerry MD [address] [place], [place] [id number] Social History Tobacco Use Types Packs/Day Years Used Date Smoking Tobacco: Never Assessed Comments Unknown Sex and Gender Information Value Date Recorded Sex Assigned at Not on file Legal Sex Female 12:32 PM CDT Gender Identity Not on file Sexual Orientation Not on file documented as of this encounter Miscellaneous Notes * Cerner Conversion Note - Perry ProviderMD - 01/26/2021 11:09 AM CDT Event Note [...] spoke to her Son Mr. Ashley @ [phone]. Son will get PCP Information and will call back LCN so LCN and follow up with PCP. Placed Patient in Lung Care Navigation program. Thanks for consult. GENEVIEVE PENNINGTON, RN-NAVIGATOR CANCER - 01/26/2021 11:09 EDT documented in this encounter Plan of Treatment Not on file documented as of this encounter Visit Diagnoses Not on filedocumented in this encounter Care Teams Cutch Cleaner Relationship Specialty Start Date End Date Yuan Mccracken MD [address] [place] [phone] PCP - General Family Medicine 09/23/22 documented as of this encounter
--- OUTSIDE RECORDS SUMMARY | 2025-07-15 10:25 | XMS_ITS | Encounter Summary ---
Author Organization [employer] ([place], [place], [place], [place], [place]) Address [address] [place] [address] Care Team Providers Care Rfid Technician Name Role Phone Yuan Mccracken MD Primary Care Provider [phone] Encounter Details Date Type Department Care Team (Late st Contact Info) Description 01/19/2021 Transcribed Document [facility] [place] [address] [place] [address] ProviderPerry MD [address] [place] [address] Social History Tobacco Use Types [...] : 01/16/2021 19:34 Co-treated by, OT : dental hygiene administrative assistant (DEFECT REPAIRER [employer]ASS[employer]) Personal Devices : Personal Devices Dentures, upper [...] Student Occupational Therapist - 01/22/2021 15:37 EDT Senior Care Goals, OT Grooming LTG Grid Goal #1 [...] with setup. Pt completed exercises EOB with DEFECT REPAIRER [employer]ASS[employer]. Pt with SOB and requested to go [...] on filedocumented in this encounter Care Teams Rfid Technician Relationship Specialty Start Date End Date Yuan Mccracken MD [facility] [place] [address] PCP - General Family Medicine 09/23/22 documented as of this encounter
--- OUTSIDE RECORDS SUMMARY | 2025-07-15 10:25 | XMS_ITS | Encounter Summary ---
Author Organization [employer] ([place], [place], [place], [place], [place]) Address [address] [place] [address] Care Team Providers Care Bedspread Inspector Name Role Phone Yuan Mccracken MD Primary Care Provider [phone] Encounter Details Date Type Department Care Team (Late st Contact Info) Description 01/26/2021 Transcribed Document [facility] [place] [facility] [place] [address] ProviderPerry MD [address] [place] [address] Social History Tobacco Use Types [...] PENNINGTON RN-SIXTOATOR CANCER - 01/26/2021 11:23 EDT documented in this encounter Plan of Treatment Not on file documented as of this encounter Visit Diagnoses Not on filedocumented in this encounter Care Teams Bedspread Inspector Relationship Specialty Start Date End Date Yuan Mccracken MD [address] [place] [address] PCP - General Family Medicine 09/23/22 documented as of this encounter
--- OUTSIDE RECORDS SUMMARY | 2025-07-15 10:25 | XMS_ITS | Encounter Summary ---
Author Organization [employer] ([place], [place], [place], [place], [place]) Address [address] [place] [address] Care Team Providers Care Analyzer Sales Name Role Phone Yuan Mccracken MD Primary Care Provider [phone] Encounter Details Date Type Department Care Team (Late st Contact Info) Description 01/26/2021 Transcribed Document [facility] [place] [facility] [place] [address] ProviderPerry MD [address] [place], [place] [address] Social History Tobacco Use Types Packs/Day Years [...] On: 01/26/2021 15:09 EDT by Mallorie Betancur, Crystal Flat Grinder Patient Resource [facility] Provider Status : No Assigned Primary Care Established Provider Name : NO PCP Patient Phone Number : [phone] Patient Insurance Type : Insurance pending Source of Referral : Case management Location of Patient : Case management referral Primary Care Scheduled : No Specialty Care Scheduled : No Qualify for Diabetes and/or Nutrition Referral : No Wound Care Appointment Made : No Why Patient Visited ED- Specialty spent : Other How Patient Arrived at ED : Other Primary Language : Cymraes [facility] Comment : Patient needs a PCP. Called and spoke to patient and she states she would like a PCP in [place]. Called Dr. Feliz's office and they state they will not take her as a patient until she receives her card. Called patient back and informed her of instructions. Follow Up Needed : No Mallorie Betancur, Crystal Flat Grinder - 01/26/2021 15:09 EDT Electronically signed by Carlotta, [facility] Conversion Aircraft Machinist Cerner at 12/07/2022 6:21 PM CDT documented in this encounter Plan of Treatment Not on file documented as of this encounter Visit Diagnoses Not on filedocumented in this encounter Care Teams Analyzer Sales Relationship Specialty Start Date End Date Yuan Mccracken MD [address] [place] [phone] PCP - General Family Medicine 09/23/22 documented as of this encounter
--- OUTSIDE RECORDS SUMMARY | 2025-07-15 10:25 | XMS_ITS | Encounter Summary ---
Author Organization [employer] ([place], [place], [place], [place], [place]) Address [address] [place] [address] Care Team Providers Care Cadmium Liquor Maker Name Role Phone Yuan Mccracken MD Primary Care Provider [phone] Encounter Details Date Type Department Care Team (Late st Contact Info) Description 01/16/2021 Transcribed Document [facility] [place] Family Medicine [address] [place] [address] ProviderPerry MD [address] [place] [address] Social History Tobacco Use Types [...] Communication Barrier : None Primary Language : Andorran Any Spiritual/Cultural Needs or Requests : No [...] on filedocumented in this encounter Care Teams Cadmium Liquor Maker Relationship Specialty Start Date End Date Yuan Mccracken MD [address] [place] [phone] PCP - General Family Medicine 09/23/22 documented as of this encounter
--- OUTSIDE RECORDS SUMMARY | 2025-07-15 10:25 | XMS_ITS | Encounter Summary ---
Author Organization [employer] ([place], [place], [place], [place], [place]) Address [address] [place] [address] Care Team Providers Care Vessel Welder Name Role Phone Yuan Mccracken MD Primary Care Provider [phone] Encounter Details Date Type Department Care Team (Late st Contact Info) Description 01/28/2021 Transcribed Document [facility] [place] [address] [place] [address] ProviderPerry MD [address] [place], [place] [address] Social History Tobacco Use Types Packs/Day Years [...] Performed On: 01/28/2021 8:19 EDT by INÉS AMADO, TOMER Bronchodilator Assessment Score, RT Pulmonary Diagnosis/History : [...] Bronchodilator Assessment Score : 3 INÉS AMADO, ASSEMBLER HYDRAULIC BACKHOE - 01/28/2021 8:19 EDT Electronically signed by [facility], [facility] Conversion Rubber Extrusion Machine Operator Cerner at 12/07/2022 6:22 PM CDT documented in this encounter Plan of Treatment Not on file documented as of this encounter Visit Diagnoses Not on filedocumented in this encounter Care Teams Vessel Welder Relationship Specialty Start Date End Date Yuan Mccracken MD [address] [place] [address] PCP - General Family Medicine 09/23/22 documented as of this encounter
--- OUTSIDE RECORDS SUMMARY | 2025-07-15 10:25 | XMS_ITS | Encounter Summary ---
Author Organization [employer] ([place], [place], [place], [place], [place]) Address [address] [place] [address] Care Team Providers Care Banana Expert Name Role Phone Yuan Mccracken MD Primary Care Provider [phone] Encounter Details Date Type Department Care Team (Late st Contact Info) Description 01/20/2021 Transcribed Document [facility] [place] [address] [place] [address] ProviderPerry MD [address] [place], [place] [id number] Social History Tobacco Use Types Packs/Day Years [...] 01/20/2021 13:51 EDT Electronically signed by Carlotta [facility] Conversion Patrol Guard Cerner at 12/07/2022 6:04 PM CDT documented in this encounter Plan of Treatment Not on file documented as of this encounter Visit Diagnoses Not on filedocumented in this encounter Care Teams Banana Expert Relationship Specialty Start Date End Date Yuan Mccracken MD [address] [place] [phone] PCP - General Family Medicine 09/23/22 documented as of this encounter
--- OUTSIDE RECORDS SUMMARY | 2025-07-15 10:25 | XMS_ITS | Encounter Summary ---
Author Organization [employer] ([place], [place], [place], [place], [place]) Address [address] [place] [address] Care Team Providers Care Special Education Resource Teacher Name Role Phone Yuan Mccracken MD Primary Care Provider [phone] Encounter Details Date Type Department Care Team (Late st Contact Info) Description 01/28/2021 Transcribed Document [facility] [place] [address] [place] [address] ProviderPerry MD [address] [place] [address] Social History Tobacco Use Types [...] 01/28/2021 5:38 EDT Electronically signed by Carlotta [facility] Conversion Skidder Lever Operator Cerner at 12/07/2022 6:03 PM CDT documented in this encounter Plan of Treatment Not on file documented as of this encounter Visit Diagnoses Not on filedocumented in this encounter Care Teams Special Education Resource Teacher Relationship Specialty Start Date End Date Yuan Mccracken MD [address] [place] [address] PCP - General Family Medicine 09/23/22 documented as of this encounter
--- OUTSIDE RECORDS SUMMARY | 2025-07-15 10:25 | XMS_ITS | Encounter Summary ---
Author Organization [employer] ([place], [place], [place], [place], [place]) Address [address] [place] [address] Care Team Providers Care Fuel System Maintenance Supervisor Name Role Phone Yuan Mccracken MD Primary Care Provider [phone] Encounter Details Date Type Department Care Team (Late st Contact Info) Description 01/16/2021 Transcribed Document [facility] [place] Medicine [facility] [place] [address] ProviderPerry MD [address] [place] [address] Social History Tobacco Use Types [...] Order on Record Electronically signed by Carlotta [facility] Conversion Material Loader Cerner at 12/07/2022 6:13 PM CDT documented in this encounter Plan of Treatment Not on file documented as of this encounter Visit Diagnoses Not on filedocumented in this encounter Care Teams Fuel System Maintenance Supervisor Relationship Specialty Start Date End Date Yuan Mccracken MD [address] [place] [phone] PCP - General Family Medicine 09/23/22 documented as of this encounter
--- OUTSIDE RECORDS SUMMARY | 2025-07-15 10:25 | XMS_ITS | Encounter Summary ---
Author Organization [employer] ([place], [place], [place], [place], [place]) Address [address] [place] [address] Care Team Providers Care Rail Operator Name Role Phone Yuan Mccracken MD Primary Care Provider [phone] Encounter Details Date Type Department Care Team (Late st Contact Info) Description 01/20/2021 Transcribed Document [facility] [place] [address] [place] [address] ProviderPerry MD [address] [place], [place] [id number] Social History Tobacco Use Types Packs/Day Years Used Date Smoking Tobacco: Never Assessed Comments Unknown Sex and Gender Information Value Date Recorded Sex Assigned at Not on file Legal Sex Female 12:32 PM CDT Gender Identity Not on file Sexual Orientation Not on file documented as of this encounter Miscellaneous Notes * Cerner Conversion Note - Perry ProviderMD - 01/20/2021 11:00 AM CDT [facility] Inpatient [...] Ulcer WO Wound Pressure Ulcer Documentation : [id number] Abnormality: Leg Left, Right Lower on 01/20/2021 [...] on filedocumented in this encounter Care Teams Rail Operator Relationship Specialty Start Date End Date Yuan Mccracken MD [facility] [place] [address] PCP - General Family Medicine 09/23/22 documented as of this encounter
--- OUTSIDE RECORDS SUMMARY | 2025-07-15 10:25 | XMS_ITS | Encounter Summary ---
Author Organization [employer] ([place], [place], [place], [place], [place]) Address [address] [place] [address] Care Team Providers Care Otr Truck Driver Name Role Phone Yuan Mccracken MD Primary Care Provider [phone] Encounter Details Date Type Department Care Team (Late st Contact Info) Description 01/16/2021 Transcribed Document [facility] [place] [facility] [place] [address] ProviderPerry MD [address] [place] [address] Social History Tobacco Use Types Packs/Day Years Used Date Smoking Tobacco: Never Assessed Comments Unknown Sex and Gender Information Value Date Recorded Sex Assigned at Not on file Legal Sex Female 12:32 PM CDT Gender Identity Not on file Sexual Orientation Not on file documented as of this encounter Miscellaneous Notes * Cerner Conversion Note - Perry ProviderMD - 01/16/2021 8:46 PM CDT ED Discharge [...] - 01/16/2021 20:46 EDT Electronically signed by [facility] Conversion Tube Lancer Cerner at 12/07/2022 6:15 PM CDT documented in this encounter Plan of Treatment Not on file documented as of this encounter Visit Diagnoses Not on filedocumented in this encounter Care Teams Otr Truck Driver Relationship Specialty Start Date End Date Yuan Mccracken MD [address] [place] [phone] PCP - General Family Medicine 09/23/22 documented as of this encounter
--- OUTSIDE RECORDS SUMMARY | 2025-07-15 10:25 | XMS_ITS | Encounter Summary ---
Author Organization [employer] ([place], [place], [place], [place], [place]) Address [address] [place] [address] Care Team Providers Care Water And Gas Helper Name Role Phone Yuan Mccracken MD Primary Care Provider [phone] Encounter Details Date Type Department Care Team (Late st Contact Info) Description 01/26/2021 Transcribed Document [facility] [place] [address] [place] [address] ProviderPerry MD [address] [place] [address] Social History Tobacco Use Types Packs/Day Years Used Date Smoking Tobacco: Never Assessed Comments Unknown Sex and Gender Information Value Date Recorded Sex Assigned at Not on file Legal Sex Female 12:32 PM CDT Gender Identity Not on file Sexual Orientation Not on file documented as of this encounter Miscellaneous Notes * Cerner Conversion Note - Historical ProviderMD - 01/26/2021 3:00 AM CDT Nutrition [...] BMI=44.4 Weight Status : Active Martha Campo Dietjessicaan - 01/26/2021 15:58 EDT Nutrition Interventions Meals and Snacks : General/Healthful diet Nutrition Supplement Therapy : Commercial beverage Martha Campo Dietjessicaan - 01/26/2021 15:58 EDT Monitoring/Evaluation Fluid/Beverage Intake [...] Martha Campo Dietitian - 01/26/2021 15:58 EDT documented in this encounter Plan of Treatment Not on file documented as of this encounter Visit Diagnoses Not on filedocumented in this encounter Care Teams Water And Gas Helper Relationship Specialty Start Date End Date Yuan Mccracken MD [place] [address] PCP - General Family Medicine 09/23/22 documented as of this encounter
--- OUTSIDE RECORDS SUMMARY | 2025-07-15 10:25 | XMS_ITS | Encounter Summary ---
Author Organization [employer] ([place], [place], [place], [place], [place]) Address [address] [place] [address] Care Team Providers Care City Planning Teacher Name Role Phone Yuan Mccracken MD Primary Care Provider [phone] Encounter Details Date Type Department Care Team (Late st Contact Info) Description 01/16/2021 Transcribed Document [facility] [place] [address] [place] [address] ProviderPerry MD [address] [place] [address] Social History Tobacco Use Types [...] filedocumented in this encounter Care Teams City Planning Teacher Relationship Specialty Start Date End Date Yuan Mccracken MD [address] [place] [phone] PCP - General Family Medicine 09/23/22 documented as of this encounter
--- OUTSIDE RECORDS SUMMARY | 2025-07-15 10:25 | XMS_ITS | Encounter Summary ---
Author Organization [employer] ([place], [place], [place], [place], [place]) Address [address] [place] [address] Care Team Providers Care Business Law Instructor Name Role Phone Yuan Mccracken MD Primary Care Provider [phone] Encounter Details Date Type Department Care Team (Late st Contact Info) Description 01/19/2021 Transcribed Document [facility] [place] [address] [place] [address] ProviderPerry MD [address] [place] [address] Social History Tobacco Use Types Packs/Day Years Used Date Smoking Tobacco: Never Assessed Comments Unknown Sex and Gender Information Value Date Recorded Sex Assigned at Not on file Legal Sex Female 12:32 PM CDT Gender Identity Not on file Sexual Orientation Not on file documented as of this encounter Miscellaneous Notes * Cerner Conversion Note - Historical ProviderMD - 01/19/2021 1:18 PM CDT Treatment [...] declined attempting to stand today TODD ENRIQUEZ, SANE RN - 01/22/2021 16:18 EDT Cognitive Treatment, PT [...] PT Physical Therapy Indicated : Yes TODD ENRIQUEZBENJAMIN - 01/22/2021 16:18 EDT Plan of Care, PT PT Tx Plan/Goals Established w Patient : Yes ENRIQUEZTODD PTA - 01/22/2021 16:18 EDT Short Term [...] TODD ENRIQUEZ PTA - 01/22/2021 16:18 EDT Validation Analyst Goals Mobility/Bed Mobility LTG PT Grid Goal [...] Goal Status : Progressing, continue TODD ENRIQUEZ, SANE RN - 01/22/2021 16:18 EDT Other PT LTG Grid Goal #1 Other : Open area to measure 1cmX0.5cm Date to Meet : 02/04/2021 EDT Goal Status : Progressing, continue TODD ENRIQUEZ, SANE RN - 01/22/2021 16:18 EDT Treatment Note Subjective Comment : pt agreeable to PTx, nsg cleared pt for PTx Assessment : pt has very poor endurance at this time due to feeling SOA, pt would benefit from short term rehab to increase endurance and decrease safety risk and caregiver burden Plan for Treatment : continue POC TODD ENRIQUEZ, SANE RN - 01/22/2021 16:18 EDT Pain Assessment Pain Score During-Intervention : 4 Location : Legs, bilateral Pain Improved by : Relaxation, Repositioning TODD ENRIQUEZ, BENJAMIN - 01/22/2021 16:18 EDT Image 1 - Images currently included in the form version of this document have not been included in the text rendition version of the form. Anticipated Discharge Needs, OT/PT Anticipated Discharge to : Unit, rehabilitation Recommend Continued Therapy at Discharge : Yes TODD ENRIQUEZBENJAMIN - 01/22/2021 16:18 EDT Ono PT Charges SANE RN PT Ther Activities Ea 15 Min-SANE RN : 1 ENRIQUEZTODD HERNANDEZBENJAMIN - 01/22/2021 16:18 EDT Electronically signed by Carlotta [facility] Conversion Steel Box Toe Inserter Cerner at 12/10/2022 9:05 AM CDT documented in this encounter Plan of Treatment Not on file documented as of this encounter Visit Diagnoses Not on filedocumented in this encounter Care Teams Business Law Instructor Relationship Specialty Start Date End Date Yuan Mccracken MD [facility] [place] [address] PCP - General Family Medicine 09/23/22 documented as of this encounter
--- OUTSIDE RECORDS SUMMARY | 2025-07-15 10:25 | XMS_ITS | Encounter Summary ---
Author Organization [employer] ([place], [place], [place], [place], [place]) Address [address] [place] [address] Care Team Providers Care Aircraft Layout Worker Name Role Phone Yuan Mccracken MD Primary Care Provider [phone] Encounter Details Date Type Department Care Team (Late st Contact Info) Description 01/27/2021 Transcribed Document [facility] [place] Family Medicine [address] [place] [address] ProviderPerry MD [address] [place] [address] [id number] Social History Tobacco Use Types Packs/Day Years [...] RT_Q6H, PRN: Wheezing Eliquis: 5 mg, Oral, [id number] Lac-Hydrin 12% topical lotion: 1 Application, Topical, [...] 20:37) 74 (JAN 27 08:36) 78 (JAN 08 20:37) Mon HR 73 (JAN 08 17:23) 61 (JAN 07 23:56) 73 (JAN 27 17:23) Resp Rate 17 (JAN 27 17:23) 16 (JAN 08 08:46) 18 (JAN 26 21:32) SBP 104 (JAN 27 17:23) 104 (JAN 27 17:23) 129 (JAN 08 13:00) DBP 62 (JAN 27 17:23) 62 (JAN 27 17:23) 79 (JAN 27 13:00) MAP 73 (JAN 27 17:23) 73 (JAN 08 17:23) 93 (JAN 27 13:00) SpO2 96 [...] 07) H 1.30 (TOM 06) H 1.40 (JAN 05) Glu R [...] consult 01/23 -- probiotic Electronically signed by [facility] Conversion Floor Helper Cerner at 12/07/2022 6:09 PM CDT documented in this encounter Plan of Treatment Not on file documented as of this encounter Visit Diagnoses Not on filedocumented in this encounter Care Teams Aircraft Layout Worker Relationship Specialty Start Date End Date Yuan Mccracken MD [address] [place] [phone] PCP - General Family Medicine 09/23/22 documented as of this encounter
--- OUTSIDE RECORDS SUMMARY | 2025-07-15 10:25 | XMS_ITS | Encounter Summary ---
Author Organization [employer] ([place], [place], [place], [place], [place]) Address [address] [place] [address] Care Team Providers Care Presser Cotton Ginning Name Role Phone Yuan Mccracken MD Primary Care Provider [phone] Encounter Details Date Type Department Care Team (Late st Contact Info) Description 01/27/2021 Transcribed Document [facility] Radiology [address] [place] [address] Casandra Ochoa MD [address] [place] [phone] Social History Tobacco Use Types Packs/Day [...] - Medical Apixaban 5 mg, Oral, Tab, [id number], Routine, Start 01/21/21 10:00:00 EDT, 01/21/21 9:43:00 [...] RT_Q4H Eliquis, 5 mg= 1 Tab, Oral, [id number] Lac-Hydrin 12% topical lotion, 1 Application, Topical, [...] mg= 1 Tab, Oral, BID, PRN nystatin, [id number] Units= 5 mL, Swish and Swallow , [...] Lymph # 1.41 x10(3)/uL 01/27/2021 03:19 EDT Long % 6.4 % 01/27/2021 03:19 EDT Long # 0.69 K/uL 01/27/2021 03:19 EDT Eos % 1.7 % 01/27/2021 03:19 EDT Eos # 0.18 x10(3)/uL 01/27/2021 03:19 EDT Baso % 0.4 % 01/27/2021 03:19 EDT Baso # 0.04 x10(3)/uL 01/27/2021 03:19 EDT Slide Review No 01/27/2021 03:19 EDT IG# 0.14 x10(3)/uL (High) 01/27/2021 03:19 EDT IG% 1.30 % (High) 01/27/2021 03:19 EDT Electronically signed by [facility] Conversion Engraver Wood Cerner at 12/07/2022 6:22 PM CDT documented in this encounter Plan of Treatment Not on file documented as of this encounter Visit Diagnoses Not on filedocumented in this encounter Care Teams Presser Cotton Ginning Relationship Specialty Start Date End Date Yuan Mccracken MD [address] [place] [phone] PCP - General Family Medicine 09/23/22 documented as of this encounter
--- OUTSIDE RECORDS SUMMARY | 2025-07-15 10:25 | XMS_ITS | Encounter Summary ---
Author Organization [employer] ([place], [place], [place], [place], [place]) Address [address] [place] [address] Care Team Providers Care Boot And Shoe Laborer Name Role Phone Yuan Mccracken MD Primary Care Provider [phone] Encounter Details Date Type Department Care Team (Late st Contact Info) Description 01/26/2021 Transcribed Document [facility] Radiology [address] [place] [address] Casandra Ochoa MD [address] [place] [phone] Social History Tobacco Use Types Packs/Day [...] - Medical Apixaban 5 mg, Oral, Tab, [id number], Routine, Start 01/21/21 10:00:00 EDT, 01/21/21 9:43:00 EDT (BHAT, EDI P) Medications albuterol-ipratropium 100 mcg-20 mcg/inh inhalation aerosol, [...] RT_Q4H Eliquis, 5 mg= 1 Tab, Oral, [id number] Lac-Hydrin 12% topical lotion, 1 Application, Topical, [...] mg= 1 Tab, Oral, BID, PRN nystatin, [id number] Units= 5 mL, Swish and Swallow , [...] Lymph # 1.47 x10(3)/uL 01/26/2021 04:35 EDT [place] % 6.7 % 01/26/2021 04:35 EDT [place] # 0.78 K/uL 01/26/2021 04:35 EDT Eos [...] (High) 01/26/2021 14:48 EDT Electronically signed by [facility] Conversion Body Care Manager Cerner at 12/07/2022 6:13 PM CDT documented in this encounter Plan of Treatment Not on file documented as of this encounter Visit Diagnoses Not on filedocumented in this encounter Care Teams Boot And Shoe Laborer Relationship Specialty Start Date End Date Yuan Mccracken MD [address] [place] [address] PCP - General Family Medicine 09/23/22 documented as of this encounter
--- OUTSIDE RECORDS SUMMARY | 2025-07-15 10:25 | XMS_ITS | Encounter Summary ---
Author Organization [employer] ([place], [place], [place], [place], [place]) Address [address] [place] [address] Care Team Providers Care Ostrich Farm Worker Name Role Phone Yuan Mccracken MD Primary Care Provider [phone] Encounter Details Date Type Department Care Team (Late st Contact Info) Description 01/27/2021 Transcribed Document [facility] [place] Family Medicine [address] [place] [address] ProviderPerry MD [address] [place], [place] [id number] Social History Tobacco Use Types Packs/Day Years Used Date Smoking Tobacco: Never Assessed Comments Unknown Sex and Gender Information Value Date Recorded Sex Assigned at Not on file Legal Sex Female 12:32 PM CDT Gender Identity Not on file Sexual Orientation Not on file documented as of this encounter Miscellaneous Notes * Cerner Conversion Note - Historical ProviderMD - 01/27/2021 4:13 PM CDT Discharge [...] WILSON, CESIA, PT - 01/27/2021 16:14 EDT Jail Goals Mobility/Bed Mobility LTG PT [...] - 01/27/2021 16:14 EDT Electronically signed by [facility] Conversion Post Graduate Intern Cerner at 12/07/2022 6:14 PM CDT documented in this encounter Plan of Treatment Not on file documented as of this encounter Visit Diagnoses Not on filedocumented in this encounter Care Teams Ostrich Farm Worker Relationship Specialty Start Date End Date Yuan Mccracken MD [address] [place] [phone] PCP - General Family Medicine 09/23/22 documented as of this encounter
--- OUTSIDE RECORDS SUMMARY | 2025-07-15 10:25 | XMS_ITS | Encounter Summary ---
Author Organization [employer] ([place], [place], [place], [place], [place]) Address [address] [place] [address] Care Team Providers Care Field Party Manager Name Role Phone Yuan Mccracken MD Primary Care Provider [phone] Encounter Details Date Type Department Care Team (Late st Contact Info) Description 01/26/2021 Transcribed Document [facility] [place] Family Medicine [address] [place] [address] ProviderPerry MD [address] [place] [address] Social History Tobacco Use Types [...] 01/26/2021 15:47 EDT Electronically signed by Carlotta [facility] Conversion Nutrition Internship Cerner at 12/07/2022 6:30 PM CDT documented in this encounter Plan of Treatment Not on file documented as of this encounter Visit Diagnoses Not on filedocumented in this encounter Care Teams Field Party Manager Relationship Specialty Start Date End Date Yuan Mccracken MD [address] [place] [phone] PCP - General Family Medicine 09/23/22 documented as of this encounter
--- OUTSIDE RECORDS SUMMARY | 2025-07-15 10:25 | XMS_ITS | Encounter Summary ---
Author Organization [employer] ([place], [place], [place], [place], [place]) Address [address] [place] [address] Care Team Providers Care Manager Of Administration Name Role Phone Yuan Mccracken MD Primary Care Provider [phone] Encounter Details Date Type Department Care Team (Late st Contact Info) Description 01/28/2021 Transcribed Document [facility] [place] Family Medicine [address] [place] [address] ProviderPerry MD [address] [place] [address] Social History Tobacco Use [...] On: 01/28/2021 17:59 EDT by Sienna Simmons, Nurse Sexual Assault-Nursing MEWS Score MEWS Respiratory Rate : 15-20 MEWS Heart Rate : 51-100 MEWS Systolic Blood Pressure : 81-100 MEWS Temperature : 36.1 to 38 Celsius / 96.9 to 100.4 Fahrenheit MEWS Conscious Level (AVPU) : Alert MEWS Score : 2 Sienna Simmons, Nurse Sexual Assault-Nursing - 01/28/2021 17:59 EDT documented in this encounter Plan of Treatment Not on file documented as of this encounter Visit Diagnoses Not on filedocumented in this encounter Care Teams Manager Of Administration Relationship Specialty Start Date End Date Yuan Mccracken MD [address] [place] [address] PCP - General Family Medicine 09/23/22 documented as of this encounter
--- OUTSIDE RECORDS SUMMARY | 2025-07-15 10:25 | XMS_ITS | Encounter Summary ---
Author Organization [employer] ([place], [place], [place], [place], [place]) Address [address] [place] [address] Care Team Providers Care Electrician Research Name Role Phone Yuan Mccracken MD Primary Care Provider [phone] Encounter Details Date Type Department Care Team (Late st Contact Info) Description 01/16/2021 Transcribed Document [facility] [place] Family Medicine [address] [place] [address] ProviderPerry MD [address] [place] [address] Social History Tobacco Use Types [...] but is currently at rehab in a long-term Persons Assisting Patient at Home : Other: [...] OCCUPATIONAL THERAPIST NON-EXEMPT - 01/19/2021 12:47 EDT Senior Living Goals, OT Grooming LTG Grid Goal #1 [...] 01/19/2021 12:47 EDT Electronically signed by Carlotta [facility] Conversion Foundry Molder Cerner at 12/07/2022 6:30 PM CDT documented in this encounter Plan of Treatment Not on file documented as of this encounter Visit Diagnoses Not on filedocumented in this encounter Care Teams Electrician Research Relationship Specialty Start Date End Date Yuan Mccracken MD [address] [place] [phone] PCP - General Family Medicine 09/23/22 documented as of this encounter
--- OUTSIDE RECORDS SUMMARY | 2025-07-15 10:25 | XMS_ITS | Encounter Summary ---
Author Organization [employer] ([place], [place], [place], [place], [place]) Address [address] [place] [address] Care Team Providers Care Server Manager Name Role Phone Yuan Mccracken MD Primary Care Provider [phone] Encounter Details Date Type Department Care Team (Late st Contact Info) Description 01/16/2021 Transcribed Document [facility] [place] [address] [place] [address] ProviderPerry MD [address] [place] [address] Social History Tobacco Use Types [...] 01/17/2021 6:12 EDT Electronically signed by Carlotta [facility] Conversion Commercial Shrimping Captain Cerner at 12/07/2022 6:28 PM CDT documented in this encounter Plan of Treatment Not on file documented as of this encounter Visit Diagnoses Not on filedocumented in this encounter Care Teams Server Manager Relationship Specialty Start Date End Date Yuan Mccracken MD [facility] [address] PCP - General Family Medicine 09/23/22 documented as of this encounter
--- OUTSIDE RECORDS SUMMARY | 2025-07-15 10:25 | XMS_ITS | Encounter Summary ---
Author Organization [employer] ([place], [place], [place], [place], [place]) Address [address] [place] [address] Care Team Providers Care Caustic Preparer Name Role Phone Yuan Mccracken MD Primary Care Provider [phone] Encounter Details Date Type Department Care Team (Late st Contact Info) Description 01/27/2021 Transcribed Document [facility] [place] [facility] [place] [address] ProviderPerry MD [address] [place] [address] Social History Tobacco Use Types [...] Perry ProviderMD - 01/27/2021 2:00 AM CDT Woodworking Bench Carpenter Details Entered On: 01/27/2021 7:25 EDT Performed [...] 01/27/2021 7:25 EDT Electronically signed by Carlotta, [facility] Conversion Boiler Control Room Operator Cerner at 12/07/2022 6:22 PM CDT documented in this encounter Plan of Treatment Not on file documented as of this encounter Visit Diagnoses Not on filedocumented in this encounter Care Teams Caustic Preparer Relationship Specialty Start Date End Date Yuan Mccracken MD [address] [place] [phone] PCP - General Family Medicine 09/23/22 documented as of this encounter
--- OUTSIDE RECORDS SUMMARY | 2025-07-15 10:25 | XMS_ITS | Encounter Summary ---
Author Organization [employer] ([place], [place], [place], [place], [place]) Address [address] [place] [address] Care Team Providers Care Mixer Operator Raw Salt Name Role Phone Yuan Mccracken MD Primary Care Provider [phone] Encounter Details Date Type Department Care Team (Late st Contact Info) Description 01/16/2021 Transcribed Document [facility] [place] [facility] [place] [address] ProviderPerry MD [address] [place] [address] Social History Tobacco Use Types [...] Months : No Current Home Treatments : Annamaria Baeza RN - 01/16/2021 20:46 EDT General Info [...] Husbands Neice Emergency Contact #2 : Andreina Corey Emergency Contact #2 Emergency Contact #2 Relationship : Sister Chief Complaint : Via EMS for SOA x 2-3 weeks, increased 2-3 days. Pt denies medical treatment for years. Rec'd solumedrol 125mg IM and xopenex neb en route. Reports mild chest discomfort on arrival. Patrick leg ulcers Information Obtained From : Patient Primary Language : [place]an Communication Barrier : None Stitcher Set Up Operator Automatic Needed : Annamaria Roberts RN - 01/16/2021 [...] Scale Risk Level : 25-45 Medium Risk [place] Fall Interventions : Adequate lighting, Assistive devices [...] Source : Stated Height Entry Format : [place] Height, Feet : 5 ft(Converted to: 152 [...] Body Mass Index : 44.4 kg/m2 (>HHI) [place] Body Weight : 54 kg Annamaria Leyva [...] Annamaria Leyva RN - 01/16/2021 20:59 EDT [place] Suicide Severity Rating Scale (C-SSRS) CSSRS Past [...] 01/16/2021 20:59 EDT Electronically signed by Carlotta [facility] Conversion Nailer Hand Cerner at 12/07/2022 6:10 PM CDT documented in this encounter Plan of Treatment Not on file documented as of this encounter Visit Diagnoses Not on filedocumented in this encounter Care Teams Mixer Operator Raw Salt Relationship Specialty Start Date End Date Yuan Mccracken MD [address] [place] [phone] PCP - General Family Medicine 09/23/22 documented as of this encounter
--- OUTSIDE RECORDS SUMMARY | 2025-07-15 10:25 | XMS_ITS | Encounter Summary ---
Author Organization [employer] ([place], [place], [place], [place], [place]) Address [address] [place] [address] Care Team Providers Care Polymer Scientist Name Role Phone Yuan Mccracken MD Primary Care Provider [phone] Encounter Details Date Type Department Care Team (Late st Contact Info) Description 01/27/2021 Transcribed Document [facility] [place] Family [place] [facility] [place] [address] ProviderPerry MD [address] [place] [address] Social History Tobacco Use Types Packs/Day Years Used Date Smoking Tobacco: Never Assessed Comments Unknown Sex and Gender Information Value Date Recorded Sex Assigned at Not on file Legal Sex Female 12:32 PM CDT Gender Identity Not on file Sexual Orientation Not on file documented as of this encounter Miscellaneous Notes * Cerner Conversion Note - Perry ProviderMD - 01/27/2021 10:20 AM CDT Patient: CHANI [...] - Medical Apixaban 5 mg, Oral, Tab, [id number], Routine, Start 01/21/21 10:00:00 EDT, 01/21/21 9:43:00 [...] RT_Q4H Eliquis, 5 mg= 1 Tab, Oral, [id number] Lac-Hydrin 12% topical lotion, 1 Application, Topical, [...] mg= 1 Tab, Oral, BID, PRN nystatin, [id number] Units= 5 mL, Swish and Swallow , [...] Lymph # 1.41 x10(3)/uL 01/27/2021 03:19 EDT [place] % 6.4 % 01/27/2021 03:19 EDT [place] # 0.69 K/uL 01/27/2021 03:19 EDT Eos [...] (High) 01/26/2021 14:48 EDT Electronically signed by [facility] Conversion Director Of Global Talent Cerner at 12/07/2022 6:30 PM CDT documented in this encounter Plan of Treatment Not on file documented as of this encounter Visit Diagnoses Not on filedocumented in this encounter Care Teams Polymer Scientist Relationship Specialty Start Date End Date Yuan Mccracken MD [address] [place] [phone] PCP - General Family Medicine 2/2/23 documented as of this encounter
--- OUTSIDE RECORDS SUMMARY | 2025-07-15 10:25 | XMS_ITS | Encounter Summary ---
Author Organization [employer] ([place], [place], [place], [place], [place]) Address [address] [place] [address] Care Team Providers Care Staff Accountant Name Role Phone Yuan Mccracken MD Primary Care Provider [phone] Encounter Details Date Type Department Care Team (Late st Contact Info) Description 01/19/2021 Transcribed Document [facility] Family Medicine [facility] [place] [address] Perry Nunes MD [address] [place] [address] Social History Tobacco Use Types [...] be infected. Initially, her white count was [address]. With hydration, her renal function is now [...] proceed with stone extraction or stent placement. /[id number] Matt Allen MD [facility]/AQ / [facility] / MODL /[id number] Electronically signed by Carlotta [facility] Conversion Steam Hammer Operator Cerner at 12/07/2022 6:07 PM CDT documented in this encounter Plan of Treatment Not on file documented as of this encounter Visit Diagnoses Not on filedocumented in this encounter Care Teams Staff Accountant Relationship Specialty Start Date End Date Yuan Mccracken MD [address] [place] [phone] PCP - General Family Medicine 09/23/22 documented as of this encounter
--- OUTSIDE RECORDS SUMMARY | 2025-07-15 10:25 | XMS_ITS | Encounter Summary ---
Author Organization [employer] ([place], [place], [place], [place], [place]) Address [address] [place] [address] Care Team Providers Care Garment Folder Name Role Phone Yuan Mccracken MD Primary Care Provider [phone] Encounter Details Date Type Department Care Team (Late st Contact Info) Description 01/28/2021 Transcribed Document [facility] [place] Family Medicine [address] [place] [address] ProviderPerry MD [address] [place], [place] [address] Social History Tobacco Use Types Packs/Day Years [...] 1 Health Plan: MEDICAID PENDING Policy Number: [id number] Authorization Number: Insurance Primary Name : MEDICAID PENDING Policy Number: [id number] Authorized Service Begin Date-Primary : 01/16/2021 EDT [...] on filedocumented in this encounter Care Teams Garment Folder Relationship Specialty Start Date End Date Yuan Mccracken MD [address] [place] [phone] PCP - General Family Medicine 09/23/22 documented as of this encounter
--- OUTSIDE RECORDS SUMMARY | 2025-07-15 10:25 | XMS_ITS | Encounter Summary ---
Author Organization [employer] ([place], [place], [place], [place], [place]) Address [address] [place] [address] Care Team Providers Care Mri Special Procedures Technologist Name Role Phone Yuan Mccracken MD Primary Care Provider [phone] Encounter Details Date Type Department Care Team (Late st Contact Info) Description 01/16/2021 Transcribed Document [facility] [address] [place] [address] ProviderPerry MD [address] [place] [address] Social History Tobacco Use Types [...] : 2 - Emergent Tracking Group : [facility] ED Dulce Miller RN - 01/16/2021 17:33 EDT Mode of Arrival : Stretcher Transported to ED by : Ambulance/ALS EMS Service : [facility] To Room Via : Stretcher Accompanied [...] PNED ; Probability: 0 ; Diagnosis Code: [id number] ED Height and Weight Height Source : Stated Height Entry Format : [place] Height, Feet : 5 ft(Converted to: 152 cm, 60 Inch) Height, Inches : 4 Inch(Converted to: 0 ft 4 Inch, 10.16 cm) Clinical Height : 162.56 cm Weight Source, ED : Critical estimated dosing weight Weight Entry Format : [place] Weight, Pounds : 270 lb Clinical Dosing Weight : 122.73 kg Body Surface Area (BSA) : 2.22 m2 Body Mass Index : 46.4 kg/m2 (>HHI) [place] Body Weight (IBW) : 54.3 kg Dulce [...] on filedocumented in this encounter Care Teams Mri Special Procedures Technologist Relationship Specialty Start Date End Date Yuan Mccracken MD [address] [place] [phone] PCP - General Family Medicine 09/23/22 documented as of this encounter
--- OUTSIDE RECORDS SUMMARY | 2025-07-15 10:25 | XMS_ITS | Encounter Summary ---
Author Organization [employer] ([place], [place], [place], [place], [place]) Address [address] [place] [address] Care Team Providers Care Application Support Intern Name Role Phone Yuan Mccracken MD Primary Care Provider [phone] Encounter Details Date Type Department Care Team (Late st Contact Info) Description 01/26/2021 Transcribed Document [facility] [place] Family Medicine [address] [place] [address] ProviderPerry MD [address] [place] [address] Social History Tobacco Use Types Packs/Day Years Used Date Smoking Tobacco: Never Assessed Comments Unknown Sex and Gender Information Value Date Recorded Sex Assigned at Not on file Legal Sex Female 12:32 PM CDT Gender Identity Not on file Sexual Orientation Not on file documented as of this encounter Miscellaneous Notes * Cerner Conversion Note - Perry ProviderMD - 01/26/2021 3:36 PM CDT Meds to Bed Enrollment Entered On: 01/26/2021 15:36 EDT Performed On: 01/26/2021 15:36 EDT by Michelle Jacobson PHARMACIST-SPECIALIST CLINICAL Meds to Bed Enrollment Patient Enrollment Decision: : Yes/enroll in meds to bed program Michelle Jacobson PHARMACIST-SPECIALIST CLINICAL - 01/26/2021 15:36 EDT Electronically signed by Gayle Laguerre Conversion [place] [employer] Site Manager Cerner at 12/07/2022 6:30 PM CDT documented in this encounter Plan of Treatment Not on file documented as of this encounter Visit Diagnoses Not on filedocumented in this encounter Care Teams Application Support Intern Relationship Specialty Start Date End Date Yuan Mccracken MD [facility] [place] [address] PCP - General Family Medicine 09/23/22 documented as of this encounter
--- OUTSIDE RECORDS SUMMARY | 2025-07-15 10:25 | XMS_ITS | Encounter Summary ---
Author Organization [employer] ([place], [place], [place], [place], [place]) Address [address] [place] [address] Care Team Providers Care Executive Administrative Assistant Name Role Phone Yuan Mccracken MD Primary Care Provider [phone] Encounter Details Date Type Department Care Team (Late st Contact Info) Description 01/26/2021 Transcribed Document [facility] [place] [address] [place] [address] ProviderPerry MD [address] [place], [place] [address] Social History Tobacco Use Types Packs/Day Years [...] 1 Health Plan: MEDICAID PENDING Policy Number: [id number] Authorization Number: Insurance Primary Name : MEDICAID PENDING Policy Number: [id number] Authorized Service Begin Date-Primary : 01/16/2021 EDT [...] on filedocumented in this encounter Care Teams Executive Administrative Assistant Relationship Specialty Start Date End Date Yuan Mccracken MD [address] [place] [phone] PCP - General Family Medicine 09/23/22 documented as of this encounter
--- OUTSIDE RECORDS SUMMARY | 2025-07-15 10:25 | XMS_ITS | Encounter Summary ---
Author Organization [employer] ([place], [place], [place], [place], [place]) Address [address] [place] [address] Care Team Providers Care Financial Institution Treasurer Name Role Phone Yuan Mccracken MD Primary Care Provider [phone] Encounter Details Date Type Department Care Team (Late st Contact Info) Description 01/26/2021 Transcribed Document [facility] [place] [facility] [place] [address] ProviderPerry MD [address] [place], [place] [id number] Social History Tobacco Use Types Packs/Day Years Used Date Smoking Tobacco: Never Assessed Comments Unknown Sex and Gender Information Value Date Recorded Sex Assigned at Not on file Legal Sex Female 12:32 PM CDT Gender Identity Not on file Sexual Orientation Not on file documented as of this encounter Miscellaneous Notes * Cerner Conversion Note - Perry ProviderMD - 01/26/2021 10:47 AM CDT Patient: CHANI [...] - Medical Apixaban 5 mg, Oral, Tab, [id number], Routine, Start 01/21/21 10:00:00 EDT, 01/21/21 9:43:00 [...] PRN Eliquis, 5 mg= 1 Tab, Oral, [id number] Lac-Hydrin 12% topical lotion, 1 Application, Topical, [...] mg= 1 Tab, Oral, BID, PRN nystatin, [id number] Units= 5 mL, Swish and Swallow , [...] Lymph # 1.47 x10(3)/uL 01/26/2021 04:35 EDT [place] % 6.7 % 01/26/2021 04:35 EDT [place] # 0.78 K/uL 01/26/2021 04:35 EDT Eos % 1.5 % 01/26/2021 04:35 EDT Eos # 0.17 x10(3)/uL 01/26/2021 04:35 EDT Baso % 0.3 % 01/26/2021 04:35 EDT Baso # 0.03 x10(3)/uL 01/26/2021 04:35 EDT Slide Review No 01/26/2021 04:35 EDT IG# 0.14 x10(3)/uL (High) 01/26/2021 04:35 EDT IG% 1.20 % (High) 01/26/2021 04:35 EDT Electronically signed by [facility] Conversion Stucco Laborer Cerner at 12/07/2022 6:15 PM CDT documented in this encounter Plan of Treatment Not on file documented as of this encounter Visit Diagnoses Not on filedocumented in this encounter Care Teams Financial Institution Treasurer Relationship Specialty Start Date End Date Yuan Mccracken MD [address] [place] [address] PCP - General Family Medicine 09/23/22 documented as of this encounter
--- OUTSIDE RECORDS SUMMARY | 2025-07-15 10:25 | XMS_ITS | Encounter Summary ---
Author Organization [employer] ([place], [place], [place], [place], [place]) Address [address] [place] [address] Care Team Providers Care Bioinformatics Support Specialist Name Role Phone Yuan Mccracken MD Primary Care Provider [phone] Encounter Details Date Type Department Care Team (Late st Contact Info) Description 01/20/2021 Transcribed Document [facility] [place] [address] [place] [address] ProviderPerry MD [address] [place] [address] Social History Tobacco Use Types [...] mg= 1 Tab, Oral, BID, PRN nystatin, [id number] Units= 5 mL, Swish and Swallow , [...] Man 6 % (Low) 01/20/2021 03:50 EDT [place] Percent Man 4 % 01/20/2021 03:50 EDT [place]os Percent Man 1 % 01/20/2021 03:50 EDT [place] Percent Man 0 % 01/20/2021 03:50 EDT [place] Percent Man 1 % 01/20/2021 03:50 EDT [...] on filedocumented in this encounter Care Teams Bioinformatics Support Specialist Relationship Specialty Start Date End Date Yuan Mccracken MD [address] [place] [phone] PCP - General Family Medicine 09/23/22 documented as of this encounter
--- OUTSIDE RECORDS SUMMARY | 2025-07-15 10:25 | XMS_ITS | Encounter Summary ---
Author Organization [employer] ([place], [place], [place], [place], [place]) Address [address] [place] [address] Care Team Providers Care Biology Specialist Name Role Phone Yuan Mccracken MD Primary Care Provider [phone] Encounter Details Date Type Department Care Team (Late st Contact Info) Description 01/27/2021 Transcribed Document [facility] [place] Family Medicine [address] [place] [address] ProviderPerry MD [address] [place], [place] [phone] Social History Tobacco Use Types Packs/Day Years Used Date Smoking Tobacco: Never Assessed Comments Unknown Sex and Gender Information Value Date Recorded Sex Assigned at Not on file Legal Sex Female 12:32 PM CDT Gender Identity Not on file Sexual Orientation Not on file documented as of this encounter Miscellaneous Notes * Cerner Conversion Note - Perry ProviderMD - 01/27/2021 2:20 PM CDT On Going Discharge Planning Entered On: 01/27/2021 14:23 EDT Performed On: 01/27/2021 14:20 EDT by Maryjane Gonzalez V, Skip Hoist Engineer Matzo Forming Machine Operator Care Management Progress Note Discharge Arrangements : [...] Rounds? : Yes Maryjane Gonzalez Social Worker Matzo Forming Machine Operator - 01/27/2021 14:20 EDT Narrative Progress Note Narrative Progress Note : HD#10, elos-4, RRS-Moderate, Boost-3 ID following. IV Vanc and Zosyn and po doxy. Per nephrology, renal function stable. Wound care and mist therapy with PT. CM sent updated clinical/therapy updates to all [facility] and [place] facilities. Lack of insurance is a huge placement barrier. CM called [facility]. Left message for admit coordinator. Patient's is a resident at [facility]. CM hopes that they will accept patient [...] and insurance status. Maryjane Gonzalez Social Worker Matzo Forming Machine Operator - 01/26/21 13:44:57 HD#6, ELOS-not recorded, RRS-Moderate, Boost-3 ID following and recommending culture right leg wound and possible vascular consult. On IV Vanc and Zosyn. 3L 02/NC.,wound care. PT/OT recommending rehab. Referrals sent via [facility] to [facility] and SNF. Patient pending Medicaid. Placement susanna be difficult due to no insurance. is a resident at [facility]. Referral sent there too. CM to follow -- Maryjane Gonzalez Social Worker Matzo Forming Machine Operator - 01/23/21 12:17:40 HD#5, ELOS-not recorded, RRS-Moderate, Boost-3 Patient on 2L 02/NC. IV Abx-Vanc and Zosyn. Wound care by PT. PT/OT recommending rehab. CM sent referrals via [employer]. Patient's is a resident at [facility]. Patient is self pay and has no health or presription coverage. Placement may be difficult due to pending Medicaid status. CM to follow patient's progess and SNF placement options. Maryjane Gonzalez V Skip Hoist Engineer Matzo Forming Machine Operator - 01/22/21 13:50:41 Maryjane Gonzalez V Skip Hoist Engineer Matzo Forming Machine Operator - 01/27/2021 14:20 EDT Electronically signed by Mamadou Laguerre Conversion Pharmacy Clinical Specialist Cerner at 12/07/2022 6:22 PM CDT documented in this encounter Plan of Treatment Not on file documented as of this encounter Visit Diagnoses Not on filedocumented in this encounter Care Teams Biology Specialist Relationship Specialty Start Date End Date Yuan Mccracken MD [address] [place] [phone] PCP - General Family Medicine 09/23/22 documented as of this encounter
--- OUTSIDE RECORDS SUMMARY | 2025-07-15 10:25 | XMS_ITS | Encounter Summary ---
Author Organization [employer] ([place], [place], [place], [place], [place]) Address [address] [place] [address] Care Team Providers Care Personal Financial Representative Name Role Phone Yuan Mccracken MD Primary Care Provider [phone] Encounter Details Date Type Department Care Team (Late st Contact Info) Description 01/16/2021 Transcribed Document [facility] [place] Medicine [facility] [place] [address] ProviderPerry MD [address] [place] [address] Social History Tobacco Use Types [...] 1960 Associated Diagnoses: None Author: HARLAN JARA MD-[facility] Patient seen and dictated [id number] MISHA vs CKD Hyperkalemia Acidosis Cellulitis Anemia Bed Bugs Plan Renal and K better Continue with bicarb drip Keep Coulter in place Labs ordered Electronically signed by [facility] Conversion Warp Splitter Cerner at 12/07/2022 6:18 PM CDT documented in this encounter Plan of Treatment Not on file documented as of this encounter Visit Diagnoses Not on filedocumented in this encounter Care Teams Personal Financial Representative Relationship Specialty Start Date End Date Yuan Mccracken MD [facility] [place] [address] PCP - General Family Medicine 09/23/22 documented as of this encounter
--- OUTSIDE RECORDS SUMMARY | 2025-07-15 10:25 | XMS_ITS | Encounter Summary ---
Author Organization [employer] ([place], [place], [place], [place], [place]) Address [address] [place] [address] Care Team Providers Care Cross Roller Name Role Phone Yuan Mccracken MD Primary Care Provider [phone] Encounter Details Date Type Department Care Team (Late st Contact Info) Description 01/28/2021 Transcribed Document [facility] [place] [facility] [place] [address] ProviderPerry MD [address] [place] [address] Social History Tobacco Use Types Packs/Day Years Used Date Smoking Tobacco: Never Assessed Comments Unknown Sex and Gender Information Value Date Recorded Sex Assigned at Not on file Legal Sex Female 12:32 PM CDT Gender Identity Not on file Sexual Orientation Not on file documented as of this encounter Miscellaneous Notes * Cerner Conversion Note - Historical ProviderMD - 01/28/2021 1:23 PM CDT Attempt [...] on filedocumented in this encounter Care Teams Cross Roller Relationship Specialty Start Date End Date Yuan Mccracken MD [address] [place] [phone] PCP - General Family Medicine 09/23/22 documented as of this encounter
--- OUTSIDE RECORDS SUMMARY | 2025-07-15 10:25 | XMS_ITS | Encounter Summary ---
Author Organization [employer] ([place], [place], [place], [place], [place]) Address [address] [place] [address] Care Team Providers Care Bleach Analyst Name Role Phone Yuan Mccracken MD Primary Care Provider Encounter Details Date Type Department Care Team (Late st Contact Info) Description 01/26/2021 Transcribed Document [facility] [place] [address] [place] [address] ProviderPerry MD [address] [place], [place] [id number] Social History Tobacco Use Types Packs/Day Years [...] 01/26/2021 13:42 EDT by Maryjane Gonzalez V, Evs Tech Production Support Developer Care Management Progress Note Discharge Arrangements : Patient Post-Acute Information Patient Name: CHANI VELASQUEZ Gender: Female : 56 Age: 60 Years No Post-Acute Placement(s) Listed No Post-Acute Service(s) Listed No [place] Referral(s) Listed Discharge Options Discussed with Patient : Acute rehabilitation, Home Health, skilled nursing Barriers to Discharge Identified : Clinical Condition of Patient Barriers to Discharge Unresolved : Clinical Condition of Patient Is the Patient Meeting Medical Necessity : Yes Physician Agreeable to Move Forward with D/C Plan? : Yes Did you Attend Multidisciplinary Rounds? : Yes Maryjane Gonzalez Social Worker Production Support Developer - 01/26/2021 13:42 EDT Narrative Progress Note [...] recommending rehab. Referrals sent via [facility] to [facility] and SNF. Patient pending Medicaid. Placement susanna be difficult due to no insurance. is a resident at [facility]. Referral sent there too. CM to follow -- Maryjane Gonzalez Social Worker Production Support Developer - 01/23/21 12:17:40 HD#5, ELOS-not recorded, RRS-Moderate, Boost-3 Patient on 2L 02/NC. IV Abx-Vanc and Zosyn. Wound care by PT. PT/OT recommending rehab. CM sent referrals via [facility]. Patient's is a resident at [facility]. Patient is self pay and has no health or presription coverage. Placement may be difficult due to pending Medicaid status. CM to follow [facility]'s [facility] and SNF placement options. Maryjane Gonzalez Social Worker Production Support Developer - 01/22/21 13:50:41 Maryjane Gonzalez Social Worker Production Support Developer - 01/26/2021 13:42 EDT Electronically signed by Carlotta [facility] Julissa Evidence Custodian Kathy at 12/07/2022 6:24 PM CDT documented in this encounter Plan of Treatment Not on file documented as of this encounter Visit Diagnoses Not on filedocumented in this encounter Care Teams Bleach Analyst Relationship Specialty Start Date End Date Yuan Mccracken MD [address] [place] [phone] PCP - General Family Medicine 09/23/22 documented as of this encounter
--- OUTSIDE RECORDS SUMMARY | 2025-07-15 10:25 | XMS_ITS | Encounter Summary ---
Author Organization [employer] ([place], [place], [place], [place], [place]) Address [address] [place] [address] Care Team Providers Care Leather Crafter Name Role Phone Yuan Mccracken MD Primary Care Provider [phone] Encounter Details Date Type Department Care Team (Late st Contact Info) Description 01/16/2021 Transcribed Document [facility] [place] [address] [place] [address] ProviderPerry MD [address] [place] [address] Social History Tobacco Use [...] EDT Treatment Time : 35 Minute(s) FRANCISCO MACDEO PT - 01/19/2021 12:58 EDT History and Environment Living Situation, Therapy : Home Patient Lives With : Other: alone currently due to pt recently discharged from [facility] to a SNF Persons Assisting Patient [...] use AD, DME is her 's FRANCISCO MACEDO Amber, PT - 01/19/2021 12:58 EDT Intervention Summary [...] WFL Left LE Strength : Impaired FRANCISCO MACEDO, PT - 01/19/2021 12:58 EDT Right Lower [...] endurance, c/o dizziness and nausea sitting EOB FRANCSICO MACEDO, PT - 01/19/2021 12:58 EDT Activity [...] Illness, Fatigue, Pain Rehabilitation Potential : Fair CLARISSE MACEDOILY Amber, PT - 01/19/2021 12:58 EDT Plan of [...] 01/26/2021 EDT Goal Status : Initial goal HELLENFRANCISCO RODRIGUEZ Amber, PT - 01/19/2021 12:58 EDT Ambulation STG Grid Goal #1 Device : Walker, front wheel Distance : 50 ft Assist : Assist, minimal Date to Meet : 01/26/2021 EDT Goal Status : Intial Goal HELLENFRANCISCO LEI, PT - 01/19/2021 12:58 EDT [place] Goals Mobility/Bed Mobility LTG PT Grid Goal #1 Goal #2 Activity : Supine to sit Sit to stand Assist : Independent, modified Independent, modified Date to Meet : 02/02/2021 EDT 02/02/2021 EDT Goal Status : Intial Goal Intial Goal HELLENFRANCISCO Amber, PT - 01/19/2021 12:58 EDT HELLEN, FRANCISCO [...] FRANCISCO MACEDO PT - 01/19/2021 12:58 EDT [place] PT Charges PT Eval Moderate Complexity : 1 FRANCISCO MACEDO PT - 01/19/2021 12:58 EDT Electronically signed by Carlotta [facility] Conversion Oxide Furnace Tender Cerner at 12/07/2022 6:23 PM CDT documented in this encounter Plan of Treatment Not on file documented as of this encounter Visit Diagnoses Not on filedocumented in this encounter Care Teams Leather Crafter Relationship Specialty Start Date End Date Yuan Mccracken MD [address] [place] [phone] PCP - General Family Medicine 09/23/22 documented as of this encounter
--- OUTSIDE RECORDS SUMMARY | 2025-07-15 10:25 | XMS_ITS | Encounter Summary ---
Author Organization [employer] ([place], [place], [place], [place], [place]) Address [address] [place] [address] Care Team Providers Care Warehouse Technician Name Role Phone Yuan Mccracken MD Primary Care Provider [phone] Encounter Details Date Type Department Care Team (Late st Contact Info) Description 01/16/[address] [facility] [place] Family Medicine [address] [place] [address] ProviderPerry MD [address] [place] [address] Social History Tobacco Use Types [...] on filedocumented in this encounter Care Teams Warehouse Technician Relationship Specialty Start Date End Date Yuan Mccracken MD [address] [place] [phone] PCP - General Family Medicine 09/23/22 documented as of this encounter
--- OUTSIDE RECORDS SUMMARY | 2025-07-15 10:25 | XMS_ITS | Encounter Summary ---
Author Organization [employer] ([place], [place], [place], [place], [place]) Address [address] [place] [address] Care Team Providers Care Offline Editor Name Role Phone Yuan Mccracken MD Primary Care Provider [phone] Encounter Details Date Type Department Care Team (Late st Contact Info) Description 01/27/2021 Transcribed Document [facility] [place] Medicine [address] [place] [address] ProviderPerry MD [address] [place] [address] Social History Tobacco Use Types [...] on filedocumented in this encounter Care Teams Offline Editor Relationship Specialty Start Date End Date Yuan Mccracken MD [address] [place] [phone] PCP - General Family Medicine 09/23/22 documented as of this encounter
--- OUTSIDE RECORDS SUMMARY | 2025-07-15 10:25 | XMS_ITS | Encounter Summary ---
Author Organization [employer] ([place], [place], [place], [place], [place]) Address [address] [place] [address] Care Team Providers Care Conductor Freight Name Role Phone Yuan Mccracken MD Primary Care Provider [phone] Encounter Details Date Type Department Care Team (Late st Contact Info) Description 01/28/2021 Transcribed Document [facility] [place] [address] [place] [address] ProviderPerry MD [address] [place], [place] [id number] Social History Tobacco Use Types Packs/Day Years [...] RT_Q6H, PRN: Wheezing Eliquis: 5 mg, Oral, [id number] Lac-Hydrin 12% topical lotion: 1 Application, Topical, [...] mg tab 5 mg 1 Tab, Oral, [id number] doxycycline hyclate 100 mg cap 100 mg [...] Problem list: Medical Obesity / SNOMED CT [id number] / Confirmed, Active Problems (1) Obesity Physical [...] Source Bed scale Routine Weight Entry Format [place] Routine Weight, Pounds 281 lb Routine Weight [...] 07) 86 (TOM 06) Ca L 8.0 (JAN 09) L 8.1 (TOM 08) L 8.3 [...] renal funtion - No emergent need of REAL ESTATE CLERK. Electronically signed by Carlotta [facility] Conversion Prototype Deicer Assembler Cerner at 12/07/2022 6:12 PM CDT documented in this encounter Plan of Treatment Not on file documented as of this encounter Visit Diagnoses Not on filedocumented in this encounter Care Teams Conductor Freight Relationship Specialty Start Date End Date Yuan Mccracken MD [address] [place] [address] PCP - General Family Medicine 09/23/22 documented as of this encounter
--- OUTSIDE RECORDS SUMMARY | 2025-07-15 10:26 | XMS_ITS | Encounter Summary ---
Author Organization [employer] ([place], [place], [place], [place], [place]) Address [address] [place] [address] Care Team Providers Care Shutdown Coordinator Name Role Phone Yuan Mccracken MD Primary Care Provider [phone] Encounter Details Date Type Department Care Team (Late st Contact Info) Description 01/29/2021 Transcribed Document [facility] Family Medicine [address] [place] [address] ProviderPerry MD [address] [place] [address] Social History Tobacco Use Types [...] 1 Health Plan: MEDICAID PENDING Policy Number: [id number] Authorization Number: Insurance Primary Name : [facility] [id number] Authorization Status-Primary : Awaiting callback Reference Number-Primary : Pend ref # [id number]. Authorized Service Begin Date-Primary : 01/16/2021 EDT Historical Authorization Comments-Primary : Comment 1: CM gave a medicaid ID no. Per [facility] pt has [facility]. Notified [facility] clinicals submitted via [facility] portal and faxed via [employer] from 01/16 to 01/29 for Ip approval (CARMEN MARLOW RN 01/29/2021 14:06) Comment 2: MEDICAID PENDING (FABIAN DWIGHT D, RN-Utilization Review 01/28/2021 08:04) Comment 3: MEDICAID PENDING (FABIAN DWIGHT D, RN-Utilization Review 01/27/2021 08:41) Comment 4: MEDICAID PENDING (PERALTA, DWIGHT D, RN-Utilization Review 01/26/2021 08:45) Comment 5: MEDICAID PENDING (FABIAN, DWIGHT D, RN-Utilization Review 01/23/2021 09:42) Comment [...] on filedocumented in this encounter Care Teams Shutdown Coordinator Relationship Specialty Start Date End Date Yuan Mccracken MD [address] [place] [phone] PCP - General Family Medicine 09/23/22 documented as of this encounter
--- OUTSIDE RECORDS SUMMARY | 2025-07-15 10:26 | XMS_ITS | Encounter Summary ---
Author Organization [employer] ([place], [place], [place], [place], [place]) Address [address] [place] [address] Care Team Providers Care Welfare Worker Name Role Phone Yuan Mccracken MD Primary Care Provider [phone] Encounter Details Date Type Department Care Team (Late st Contact Info) Description 01/17/2021 Transcribed Document [facility] [place] [address] [place] [address] ProviderPerry MD [address] [place] [address] Social History Tobacco Use Types Packs/Day Years Used Date Smoking Tobacco: Never Assessed Comments Unknown Sex and Gender Information Value Date Recorded Sex Assigned at Not on file Legal Sex Female 12:32 PM CDT Gender Identity Not on file Sexual Orientation Not on file documented as of this encounter Miscellaneous Notes * [employer]ner Conversion Note - Historical ProviderMD - 01/17/2021 2:41 PM CDT Attempt [...] on filedocumented in this encounter Care Teams Welfare Worker Relationship Specialty Start Date End Date Yuan Mccracken MD [facility] [place] [address] PCP - General Family Medicine 09/23/22 documented as of this encounter
--- OUTSIDE RECORDS SUMMARY | 2025-07-15 10:26 | XMS_ITS | Encounter Summary ---
Author Organization [employer] ([place], [place], [place], [place], [place]) Address [address] [place] [address] Care Team Providers Care Hospice Art Therapist Name Role Phone Yuan Mccracken MD Primary Care Provider Encounter Details Date Type Department Care Team (Late st Contact Info) Description 01/17/2021 Transcribed Document [facility] [place] [address] ProviderPerry MD [address] [place] [address] Social History Tobacco Use Types Packs/Day Years Used Date Smoking Tobacco: Never Assessed Comments Unknown Sex and Gender Information Value Date Recorded Sex Assigned at Not on file Legal Sex Female 12:32 PM CDT Gender Identity Not on file Sexual Orientation Not on file documented as of this encounter Miscellaneous Notes * Cerner Conversion Note - Perry Nunes MD - 01/17/2021 12:36 PM CDT [...] on filedocumented in this encounter Care Teams Hospice Art Therapist Relationship Specialty Start Date End Date Yuan Mccracken MD [facility] [place] [address] PCP - General Family Medicine 09/23/22 documented as of this encounter
--- OUTSIDE RECORDS SUMMARY | 2025-07-15 10:26 | XMS_ITS | Encounter Summary ---
Author Organization [employer] ([place], [place], [place], [place], [place]) Address [address] [place] [address] Care Team Providers Care Back Padder Name Role Phone Yuan Mccracken MD Primary Care Provider [phone] Encounter Details Date Type Department Care Team (Late st Contact Info) Description 01/21/2021 Transcribed Document [facility] Cardiology [address] [place] [phone] [place] [address] [place] [address] [address] [place] [address] Social History Tobacco Use Types Packs/Day Years [...] None Author: GRUPO SMITH MD-CAR BASIC Primary Field Reviewer: None Subjective Reconsulted; new onset a-fib. Started [...] for now. DC sub q. Decision for usp OAC pending clinical course 01/17/2021 No indication for further cardiac testing at this time. Cardiology will sign off. documented in this encounter Plan of Treatment Not on file documented as of this encounter Visit Diagnoses Not on filedocumented in this encounter Care Teams Back Padder Relationship Specialty Start Date End Date Yuan Mccracken MD [address] [place] [phone] PCP - General Family Medicine 09/23/22 documented as of this encounter
--- OUTSIDE RECORDS SUMMARY | 2025-07-15 10:26 | XMS_ITS | Encounter Summary ---
Author Organization [employer] ([place], [place], [place], [place], [place]) Address [address] [place] [address] Care Team Providers Care Pedorthist Name Role Phone Yuan Mccracken MD Primary Care Provider [phone] Encounter Details Date Type Department Care Team (Late st Contact Info) Description 01/21/2021 Transcribed Document [facility] [place] [address] [place] [address] ProviderPerry MD [address] [place] [address] Social History Tobacco Use Types Packs/Day Years Used Date Smoking Tobacco: Never Assessed Comments Unknown Sex and Gender Information Value Date Recorded Sex Assigned at Not on file Legal Sex Female 12:32 PM CDT Gender Identity Not on file Sexual Orientation Not on file documented as of this encounter Miscellaneous Notes * Cerner Conversion Note - Perry ProviderMD - 01/21/2021 7:30 PM CDT Meds to Bed Enrollment Entered On: 01/25/2021 8:48 EDT Performed On: 01/21/2021 19:30 EDT by MAREN BOLTON PHARMACIST-MEDICATION RECON Meds to Bed Enrollment Patient Enrollment Decision: : No/do not enroll in meds to bed program Reason for Declining Meds to Bed Program: : Discharge to facility MAREN BOLTON PHARMACIST-MEDICATION RECON - 01/25/2021 8:48 EDT Electronically signed by Gayle Laguerre Conversion Electronic Parts Salesperson Cerner at 12/07/2022 6:18 PM CDT documented in this encounter Plan of Treatment Not on file documented as of this encounter Visit Diagnoses Not on filedocumented in this encounter Care Teams Pedorthist Relationship Specialty Start Date End Date Yuan Mccracken MD [address] [place] [phone] PCP - General Family Medicine 09/23/22 documented as of this encounter
--- OUTSIDE RECORDS SUMMARY | 2025-07-15 10:26 | XMS_ITS | Encounter Summary ---
Author Organization [employer] ([place], [place], [place], [place], [place]) Address [address] [place] [address] Care Team Providers Care Water Main Inspector Name Role Phone Yuan Mccracken MD Primary Care Provider [phone] Encounter Details Date Type Department Care Team (Late st Contact Info) Description 01/21/2021 Transcribed Document [facility] [place] [address] [place] [address] ProviderPerry MD [address] [place] [address] Social History Tobacco Use Types [...] PT - 01/26/2021 15:49 EDT] ) FRANCISCO MACEDO PT - 01/26/2021 15:49 EDT Cognitive Treatment, [...] FRANCISCO MACEDO, PT - 01/26/2021 15:49 EDT Penitentiary Goals Mobility/Bed Mobility LTG PT [...] FRANCISCO MACEDO PT - 01/26/2021 15:49 EDT Electronically signed by Carlotta [facility] Conversion Humanities Division Chair Cerner at 12/10/2022 9:06 AM CDT documented in this encounter Plan of Treatment Not on file documented as of this encounter Visit Diagnoses Not on filedocumented in this encounter Care Teams Water Main Inspector Relationship Specialty Start Date End Date Yuan Mccracken MD [address] [place] [address] PCP - General Family Medicine 09/23/22 documented as of this encounter
--- OUTSIDE RECORDS SUMMARY | 2025-07-15 10:26 | XMS_ITS | Encounter Summary ---
Author Organization [employer] ([place], [place], [place], [place], [place]) Address [address] [place] [address] Care Team Providers Care Property Worker Name Role Phone Yuan Mccracken MD Primary Care Provider [phone] Encounter Details Date Type Department Care Team (Late st Contact Info) Description 01/29/2021 Transcribed Document [facility] [place] [address] [place] [address] ProviderPerry MD [address] [place] [address] Social History Tobacco Use Types [...] On: 01/29/2021 13:04 EDT by LEOPOLDO CARVER RPh Teaching/Learning Assessment Barriers To Learning : None [...] of sepsis and overall experience. LEOPOLDO CARVER, [facility] - 01/29/2021 13:07 EDT Electronically signed by Carlotta [facility] Conversion Forestry Crew Chief Cerner at 12/07/2022 6:13 PM CDT documented in this encounter Plan of Treatment Not on file documented as of this encounter Visit Diagnoses Not on filedocumented in this encounter Care Teams Property Worker Relationship Specialty Start Date End Date Yuan Mccracken MD [address] [place] [phone] PCP - General Family Medicine 09/23/22 documented as of this encounter
--- OUTSIDE RECORDS SUMMARY | 2025-07-15 10:26 | XMS_ITS | Encounter Summary ---
Author Organization [employer] ([place], [place], [place], [place], [place]) Address [address] [place] [address] Care Team Providers Care Electroplater Name Role Phone Yuan Mccracken MD Primary Care Provider Encounter Details Date Type Department Care Team (Late st Contact Info) Description 01/21/2021 Transcribed Document [facility] [place] [facility] [place] [address] ProviderPerry MD [address] [place] [address] Social History Tobacco Use Types Packs/Day Years Used Date Smoking Tobacco: Never Assessed Comments Unknown Sex and Gender Information Value Date Recorded Sex Assigned at Not on file Legal Sex Female 12:32 PM CDT Gender Identity Not on file Sexual Orientation Not on file documented as of this encounter Miscellaneous Notes * Cerner Conversion Note - Perry ProviderMD - 01/21/2021 11:48 AM CDT Patient: CHANI [...] - Medical Apixaban 5 mg, Oral, Tab, [id number], Routine, Start 01/21/21 10:00:00 EDT, 01/21/21 9:43:00 [...] PRN Eliquis, 5 mg= 1 Tab, Oral, [id number] Lac-Hydrin 12% topical lotion, 1 Application, Topical, BID magnesium sulfate, 2 Gram= 50 mL, IV Piggyback, Daily, PRN magnesium sulfate, 2 Gram= 50 mL, IV Piggyback, Q2H, PRN metoprolol tartrate, 50 mg= 1 Tab, Oral, BID MiraLax, 17 Gram= 1 Packet, Oral, Daily, PRN Mucinex, 600 mg= 1 Tab, Oral, BID, PRN nystatin, [id number] Units= 5 mL, Swish and Swallow , [...] ALYC # 2 K/uL 01/21/2021 03:04 EDT [place] Percent Man 4 % 01/21/2021 03:04 EDT [place] Percent Man 2 % 01/21/2021 03:04 EDT [place] Percent Man 2 % (High) 01/21/2021 03:04 EDT RBC Morphology Normal 01/21/2021 03:[address] Estimate Adequate 01/21/2021 03:04 EDT Slide Review Add Diff 01/21/2021 03:04 EDT PTT Heparin 75.6 Second(s) (Critical) 01/21/2021 03:04 EDT PTT Heparin 65.3 Second(s) 01/20/2021 22:36 EDT PTT Heparin 50.4 Second(s) 01/20/2021 16:31 EDT Electronically signed by Carlotta, [facility] Conversion Reimbursement Analyst Cerner at 12/07/2022 6:27 PM CDT documented in this encounter Plan of Treatment Not on file documented as of this encounter Visit Diagnoses Not on filedocumented in this encounter Care Teams Electroplater Relationship Specialty Start Date End Date Yuan Mccracken MD [address] [place] [phone] PCP - General Family Medicine 09/23/22 documented as of this encounter
--- OUTSIDE RECORDS SUMMARY | 2025-07-15 10:26 | XMS_ITS | Encounter Summary ---
Author Organization [employer] ([place], [place], [place], [place], [place]) Address [address] [place] [address] Care Team Providers Care Data Architect Name Role Phone Yuan Mccracken MD Primary Care Provider [phone] Encounter Details Date Type Department Care Team (Late st Contact Info) Description 01/21/2021 Transcribed Document [facility] [place] [address] [place] [address] ProviderPerry MD [address] [place] [address] Social History Tobacco Use Types [...] - 01/21/2021 12:22 EDT Electronically signed by Carlotta, [facility] Conversion Water Resource Engineer Cerner at 12/07/2022 6:28 PM CDT documented in this encounter Plan of Treatment Not on file documented as of this encounter Visit Diagnoses Not on filedocumented in this encounter Care Teams Data Architect Relationship Specialty Start Date End Date Yuan Mccracken MD [address] [place] [phone] PCP - General Family Medicine 09/23/22 documented as of this encounter
--- OUTSIDE RECORDS SUMMARY | 2025-07-15 10:26 | XMS_ITS | Encounter Summary ---
Author Organization [employer] ([place], [place], [place], [place], [place]) Address [address] [place] [address] Care Team Providers Care Waterfront Director Name Role Phone Yuan Mccracken MD Primary Care Provider [phone] Encounter Details Date Type Department Care Team (Late st Contact Info) Description 01/29/2021 Transcribed Document [facility] [place] [address] [place] [address] ProviderPerry MD [address] [place] [address] Social History Tobacco Use Types Packs/Day Years Used Date Smoking Tobacco: Never Assessed Comments Unknown Sex and Gender Information Value Date Recorded Sex Assigned at Not on file Legal Sex Female 12:32 PM CDT Gender Identity Not on file Sexual Orientation Not on file documented as of this encounter Miscellaneous Notes * Cerner Conversion Note - Perry ProviderMD - 01/29/2021 2:00 AM CDT Oceanologist Details Entered On: 01/29/2021 5:58 EDT Performed [...] on filedocumented in this encounter Care Teams Waterfront Director Relationship Specialty Start Date End Date Yuan Mccarcken MD [address] [place] [phone] PCP - General Family Medicine 09/23/22 documented as of this encounter
--- OUTSIDE RECORDS SUMMARY | 2025-07-15 10:26 | XMS_ITS | Encounter Summary ---
Author Organization [employer] ([place], [place], [place], [place], [place]) Address [address] [place] [address] Care Team Providers Care Studio Operator Name Role Phone Yuan Mccracken MD Primary Care Provider [phone] Encounter Details Date Type Department Care Team (Late st Contact Info) Description 01/22/2021 Transcribed Document [facility] [place] [facility] [place] [address] ProviderPerry MD [address] [place] [address] Social History Tobacco Use Types Packs/Day Years Used Date Smoking Tobacco: Never Assessed Comments Unknown Sex and Gender Information Value Date Recorded Sex Assigned at Not on file Legal Sex Female 12:32 PM CDT Gender Identity Not on file Sexual Orientation Not on file documented as of this encounter Miscellaneous Notes * Cerner Conversion Note - Perry ProviderMD - 01/22/2021 2:00 AM CDT Rehabilitation Engineer Details Entered On: 01/22/2021 5:03 EDT Performed [...] on filedocumented in this encounter Care Teams Studio Operator Relationship Specialty Start Date End Date Yuan Mccracken MD [address] [place] [address] PCP - General Family Medicine 09/23/22 documented as of this encounter
--- OUTSIDE RECORDS SUMMARY | 2025-07-15 10:26 | XMS_ITS | Encounter Summary ---
Author Organization [employer] ([place], [place], [place], [place], [place]) Address [address] [place] [address] Care Team Providers Care Flight Test Shop Mechanic Name Role Phone Yuan Mccracken MD Primary Care Provider [phone] Encounter Details Date Type Department Care Team (Late st Contact Info) Description 01/21/2021 Transcribed Document [facility] [place] [facility] [place] [address] ProviderPerry MD [address] [place] [address] Social History Tobacco Use Types Packs/Day Years Used Date Smoking Tobacco: Never Assessed Comments Unknown Sex and Gender Information Value Date Recorded Sex Assigned at Not on file Legal Sex Female 12:32 PM CDT Gender Identity Not on file Sexual Orientation Not on file documented as of this encounter Miscellaneous Notes * Cerner Conversion Note - Perry ProviderMD - 01/21/2021 3:37 PM CDT Patient: CHANI [...] 02 08:00) 98.0 (TOM 02 04:00) 99.1 (TOM 01 16:00) Apical HR 81 (TOM 02 10:41) 81 (TOM 02 10:41) H 102 (TOM 01 16:40) Mon HR 75 (TOM 02 15:00) 66 (TOM 02 12:35) 119 (TOM 02 11:00) Resp Rate H 31 (TOM 02 15:00) H 27 (TOM 02 04:00) H 51 (TOM 02 02:00) SBP 115 (TOM 02 15:00) 107 (TOM 02 13:00) H 152 (TOM 11:00) DBP 66 (TOM 15:00) L 59 (JAN 20 21:00) 84 (TOM 02 00:00) MAP 82 (TOM 02 15:00) 81 (TOM 02 14:00) 109 (TOM 02 00:00) SpO2 98 (JAN 21 15:00) L 92 (JAN 20 16:00) 99 (JAN 21 12:00) Labs: Labs (Last four charted values) WBC H 20.0 (TOM 02) H 16.5 (JAN 01) H 14.2 (JAN 01) H 13.0 (JANUARY 19) HB L 8.7 (TOM 02) L 9.2 (TOM 01) L 8.7 (JAN 20) L 8.4 (JANUARY 19) HCT L 28.2 (TOM 02) L 29.6 (TOM 01) L 27.4 (JAN 20) L 26.2 (JANUARY 19) Plt 322 (JAN 02) 305 (JAN 20) 297 (JAN 20) 266 (JANUARY 19) Na 137 (JAN 02) 139 (JAN 01) 141 (JANUARY 19) 141 (JANUARY 18) K 3.9 (TOM 02) L 3.2 (TOM 02) L 3.1 (TOM 01) 3.5 (JANUARY 19) Cl 103 (JAN 02) 105 (JAN 01) 107 (JANUARY 19) 105 (JANUARY 18) CO2 29 (JAN 02) 26 (JAN 01) 29 (JANUARY 19) 29 (JANUARY 18) BUN H 34 (JAN 02) H 48 (JAN 01) H 70 (JANUARY 19) C 89 (JANUARY 18) Cr H 1.40 (TOM 02) H 1.60 (JAN 01) H 1.90 [...] changes. Rx will follow, Kiko Wang PharmD,BCPS,BCCCP #[phone] Electronically signed by Carlotta [facility] Conversion Medical Observer Cerner at 12/07/2022 6:30 PM CDT documented in this encounter Plan of Treatment Not on file documented as of this encounter Visit Diagnoses Not on filedocumented in this encounter Care Teams Flight Test Shop Mechanic Relationship Specialty Start Date End Date Yuan Mccracken MD [address] [place] [phone] PCP - General Family Medicine 09/23/22 documented as of this encounter
--- OUTSIDE RECORDS SUMMARY | 2025-07-15 10:26 | XMS_ITS | Encounter Summary ---
Author Organization [employer] ([place], [place], [place], [place], [place]) Address [address] [place] [address] Care Team Providers Care Inside Sales Associate Name Role Phone Yuan Mccracken MD Primary Care Provider [phone] Encounter Details Date Type Department Care Team (Late st Contact Info) Description 01/17/2021 Transcribed Document [facility] Radiology [address] [place] [address] Tyler Recio MD [address] [facility] [address] [place] [id number] Social History Tobacco Use Types Packs/Day Years [...] good care of herself, recently put in fci. She is unsure of how she has [...] 01/17/21 8:10:00 EDT, 01/17/21 8:10:00 EDT (NICOLE, OSAMA) Medications cefTRIAXone doxycycline, 100 mg, IV Piggyback, [id number] Dulcolax Laxative, 5 mg= 1 Tab, Oral, Daily, PRN DuoNeb 0.5 mg-2.5 mg/3 mL inhalation solution, 3 mL, Nebulized Inhalation , RT_Q6H, PRN heparin, 5000 Units= 1 mL, SubCutaneous, Q8H MiraLax, 17 Gram= 1 Packet, Oral, Daily, PRN nystatin, [id number] Units= 5 mL, Swish and Spit, QID [...] 38 mg/dL 01/16/2021 20:51 EDT Sodium Ur Ramer 60 mMole/Liter 01/16/2021 20:51 EDT Troponin I [...] # 0.54 x10(3)/uL (Low) 01/16/2021 17:43 EDT [place] % 4.2 % 01/16/2021 20:59 EDT [place] % 4.5 % 01/16/2021 17:43 EDT [place] # 0.88 K/uL 01/16/2021 20:59 EDT [place] # 0.98 K/uL 01/16/2021 17:43 EDT Eos [...] Appearance CLEAR2 01/16/2021 20:51 EDT Urine Specific [place] 1.011 01/16/2021 20:51 EDT Urine pH Dipstick [...] filedocumented in this encounter Care Teams Inside Sales Associate Relationship Specialty Start Date End Date Yuan Mccracken MD [address] [place] [phone] PCP - General Family Medicine 09/23/22 documented as of this encounter
--- OUTSIDE RECORDS SUMMARY | 2025-07-15 10:26 | XMS_ITS | Encounter Summary ---
Author Organization [employer] ([place], [place], [place], [place], [place]) Address [address] [place] [address] Care Team Providers Care Sign Hanger Name Role Phone Yuan Mccracken MD Primary Care Provider [phone] Encounter Details Date Type Department Care Team (Late st Contact Info) Description 01/21/2021 Transcribed Document [facility] [place] [facility] [place] [address] ProviderPerry MD [address] [place], [place] [address] Social History Tobacco Use Types Packs/Day Years [...] PERALTA RN-Utilization Review - 01/21/2021 8:19 EDT Electronically signed by [facility] Conversion Cash Surrender Calculator Cerner at 12/07/2022 6:02 PM CDT documented in this encounter Plan of Treatment Not on file documented as of this encounter Visit Diagnoses Not on filedocumented in this encounter Care Teams Sign Hanger Relationship Specialty Start Date End Date Yuan Mccracken MD [address] [place] [phone] PCP - General Family Medicine 09/23/22 documented as of this encounter
--- OUTSIDE RECORDS SUMMARY | 2025-07-15 10:26 | XMS_ITS | Encounter Summary ---
Author Organization [employer] ([place], [place], [place], [place], [place]) Address [address] [place] [address] Care Team Providers Care Pavilion Cutter Name Role Phone Yuan Mccracken MD Primary Care Provider [phone] Encounter Details Date Type Department Care Team (Late st Contact Info) Description 01/22/2021 Transcribed Document [facility] [place] [address] [place] [address] ProviderPerry MD [address] [place] [address] Social History Tobacco Use Types [...] on filedocumented in this encounter Care Teams Pavilion Cutter Relationship Specialty Start Date End Date Yuan Mccracken MD [place] [address] PCP - General Family Medicine 09/23/22 documented as of this encounter
--- OUTSIDE RECORDS SUMMARY | 2025-07-15 10:26 | XMS_ITS | Encounter Summary ---
Author Organization [employer] ([place], [place], [place], [place], [place]) Address [address] [place] [address] Care Team Providers Care Supervisor Tower Name Role Phone Yuan Mccracken MD Primary Care Provider [phone] Encounter Details Date Type Department Care Team (Late st Contact Info) Description 01/17/2021 Transcribed Document [facility] [place] [address] [place] [address] ProviderPerry MD [address] [place] [address] Social History Tobacco Use Types [...] filedocumented in this encounter Care Teams Supervisor Tower Relationship Specialty Start Date End Date Yuan Mccracken MD [address] [place] [phone] PCP - General Family Medicine 09/23/22 documented as of this encounter
--- OUTSIDE RECORDS SUMMARY | 2025-07-15 10:26 | XMS_ITS | Clinical Summary ---
Author Organization [facility] Address [address] [place] [address] Care Team Providers Care Demand Manager Name Role Phone Yuan Mccracken MD Primary Care Provider [phone] Allergies No known active allergies Medications ipratropium-alb [...] renal an d ureteral calculous obstruction 01/28/2023 Family History Medical History Relation Name Comments [...] 12/16/2022 10/21/2022 INFLUENZA VACCINE 03/22/2025 COVID-19 Vaccine (5 - 2024-2 6 season) 2025 07/05/2023, 10/15/2022, 02/18/2022, Additional history exists Insurance [facility] MEDICARE ADVANTAGE [facility] [place] [address] Care Teams Demand Manager Relationship Specialty Start Date End Date Yuan Mccracken MD [address] [place] [address] PCP - General Family Medicine 10/13/22
--- OUTSIDE RECORDS SUMMARY | 2025-07-15 10:26 | XMS_ITS | Encounter Summary ---
Author Organization [employer] ([place], [place], [place], [place], [place]) Address [address] [place] [address] Care Team Providers Care Route Sales Person Name Role Phone Yuan Mccracken MD Primary Care Provider [phone] Encounter Details Date Type Department Care Team (Late st Contact Info) Description 01/17/2021 Transcribed Document [facility] [place] [address] [place] [address] ProviderPerry MD [address] [place] [address] Social History Tobacco Use Types [...] on filedocumented in this encounter Care Teams Route Sales Person Relationship Specialty Start Date End Date Yuan Mccracken MD [address] [place] [phone] PCP - General Family Medicine 09/23/22 documented as of this encounter
--- OUTSIDE RECORDS SUMMARY | 2025-07-15 10:26 | XMS_ITS | Encounter Summary ---
Author Organization [employer] ([place], [place], [place], [place], [place]) Address [address] [place] [address] Care Team Providers Care Mending Carrier Name Role Phone Yuan Mccracken MD Primary Care Provider [phone] Encounter Details Date Type Department Care Team (Late st Contact Info) Description 01/28/2021 Transcribed Document [facility] [place] [address] [place] [address] ProviderPerry MD [address] [place], [place] [address] Social History Tobacco Use Types Packs/Day Years Used Date Smoking Tobacco: Never Assessed Comments Unknown Sex and Gender Information Value Date Recorded Sex Assigned at Not on file Legal Sex Female 12:32 PM CDT Gender Identity Not on file Sexual Orientation Not on file documented as of this encounter Miscellaneous Notes * Cerner Conversion Note - Perry ProviderMD - 01/28/2021 2:57 PM CDT On Going Discharge Planning Entered On: 01/28/2021 15:01 EDT Performed On: 01/28/2021 14:57 EDT by Maryjane Gonzalez V, Electrical Engineering Teacher Superintendent Factory Care Management Progress Note Discharge Arrangements : [...] Rounds? : Yes Maryjane Gonzalez Social Worker Superintendent Factory - 01/28/2021 14:57 EDT Narrative Progress Note Narrative Progress Note : HD#11, elos-4, RRS-Moderate, Boost-3 ID following and stopped IV Vanc and Zosyn. po doxy continued. Nephrology following. leg wounds improving with mist therapy with PT. CM sent updated clinical/therapy updates to all [facility] and [facility] for possible rehab palcement. Lack of insurance is a HUGE placement barrier. No current bed offers. CM to follow Historical Progress Note : HD#10, elos-4, RRS-Moderate, Boost-3 ID following. IV Vanc and Zosyn and po doxy. Per nephrology, renal function stable. Wound care and mist therapy with PT. CM sent updated clinical/therapy updates to all [facility] and [place] facilities. Lack of insurance is a huge placement barrier. CM called [facility]. Left message for admit coordinator. Patient's is a resident at [facility]. CM hopes that they will accept patient as well with pending Medicaid. CM to follow Maryjaen Gonzalez Social Worker Superintendent Factory - 01/27/21 14:23:52 HD#6, elos-4, RRS-Moderate, Boost-3 [...] and insurance status. Maryjane Gonzalez Social Worker Superintendent Factory - 01/26/21 13:44:57 HD#6, ELOS-not recorded, RRS-Moderate, Boost-3 ID following and recommending culture right leg wound and possible vascular consult. On IV Vanc and Zosyn. 3L 02/NC.,wound care. PT/OT recommending rehab. Referrals sent via [facility] to [facility] and SNF. Patient pending Medicaid. Placement susanna be difficult due to no insurance. is a resident at [facility]. Referral sent there too. CM to follow -- Maryjane Gonzalez V Electrical Engineering Teacher Superintendent Factory - 01/23/21 12:17:40 HD#5, ELOS-not recorded, RRS-Moderate, Boost-3 Patient on 2L /. IV Abx-Vanc and Zosyn. Wound care by PT. PT/OT recommending rehab. CM sent referrals via [employer]. Patient's is a resident at [facility]. Patient is self pay and has no health or presription coverage. Placement may be difficult due to pending Medicaid status. CM to follow patient's progess and SNF placement options. Maryjane Gonzalez V Electrical Engineering Teacher Superintendent Factory - 01/22/21 13:50:41 Maryjane Gonzalez V Electrical Engineering Teacher [facility] [place]/28/2021 14:57 EDT documented in this encounter Plan of Treatment Not on file documented as of this encounter Visit Diagnoses Not on filedocumented in this encounter Care Teams Mending Carrier Relationship Specialty Start Date End Date Yuan Mccracken MD [address] [place] [phone] PCP - General Family Medicine 09/23/22 documented as of this encounter
--- OUTSIDE RECORDS SUMMARY | 2025-07-15 10:26 | XMS_ITS | Encounter Summary ---
Author Organization [employer] ([place], [place], [place], [place], [place]) Address [address] [place] [address] Care Team Providers Care Platemaker Name Role Phone Yuan Mccracken MD Primary Care Provider [phone] Encounter Details Date Type Department Care Team (Late st Contact Info) Description 01/22/2021 Transcribed Document [facility] [place] [facility] [place] [address] ProviderPerry MD [address] [place] [address] Social History Tobacco Use Types Packs/Day Years Used Date Smoking Tobacco: Never Assessed Comments Unknown Sex and Gender Information Value Date Recorded Sex Assigned at Not on file Legal Sex Female 12:32 PM CDT Gender Identity Not on file Sexual Orientation Not on file documented as of this encounter Miscellaneous Notes * Cerner Conversion Note - Perry ProviderMD - 01/22/2021 10:00 AM CDT Patient: CHANI [...] - Medical Apixaban 5 mg, Oral, Tab, [id number], Routine, Start 01/21/21 10:00:00 EDT, 01/21/21 9:43:00 [...] PRN Eliquis, 5 mg= 1 Tab, Oral, [id number] Lac-Hydrin 12% topical lotion, 1 Application, Topical, BID magnesium sulfate, 2 Gram= 50 mL, IV Piggyback, Daily, PRN magnesium sulfate, 2 Gram= 50 mL, IV Piggyback, Q2H, PRN metoprolol tartrate, 50 mg= 1 Tab, Oral, BID MiraLax, 17 Gram= 1 Packet, Oral, Daily, PRN Mucinex, 600 mg= 1 Tab, Oral, BID, PRN nystatin, [id number] Units= 5 mL, Swish and Swallow , [...] ALYC # 2 K/uL 01/22/2021 06:25 EDT [place] Percent Man 2 % (Low) 01/22/2021 06:25 [...] 01/22/2021 06:25 EDT Electronically signed by Carlotta, [facility] Conversion Power Generating Plant Operator Cerner at 12/07/2022 6:12 PM CDT documented in this encounter Plan of Treatment Not on file documented as of this encounter Visit Diagnoses Not on filedocumented in this encounter Care Teams Platemaker Relationship Specialty Start Date End Date Yuan Mccracken MD [address] [place] [phone] PCP - General Family Medicine 09/23/22 documented as of this encounter
--- OUTSIDE RECORDS SUMMARY | 2025-07-15 10:26 | XMS_ITS | Encounter Summary ---
Author Organization [employer] ([place], [place], [place], [place], [place]) Address [address] [place] [address] Care Team Providers Care Cra Name Role Phone Yuan Mccracken MD Primary Care Provider [phone] Encounter Details Date Type Department Care Team (Late st Contact Info) Description 01/29/2021 Transcribed Document [facility] [place] [address] [place] [address] ProviderPerry MD [address] [place] [address] Social History Tobacco Use Types [...] Hong Jauregui RN - 01/29/2021 18:37 EDT Electronically signed by Carlotta [facility] Conversion Forest Technology Professor Cerner at 12/07/2022 6:25 PM CDT documented in this encounter Plan of Treatment Not on file documented as of this encounter Visit Diagnoses Not on filedocumented in this encounter Care Teams Cra Relationship Specialty Start Date End Date Yuan Mccracken MD [address] [place] [phone] PCP - General Family Medicine 09/23/22 documented as of this encounter
--- OUTSIDE RECORDS SUMMARY | 2025-07-15 10:26 | XMS_ITS | Encounter Summary ---
Author Organization [employer] ([place], [place], [place], [place], [place]) Address [address] [place] [address] Care Team Providers Care Heart Doctor Name Role Phone Yuan Mccracken MD Primary Care Provider [phone] Encounter Details Date Type Department Care Team (Late st Contact Info) Description 01/29/2021 Transcribed Document [facility] [place] [address] [place] [address] ProviderPerry MD [address] [place] [address] Social History Tobacco Use [...] 1 Health Plan: MEDICAID PENDING Policy Number: [id number] Authorization Number: Insurance Primary Name : [employer] Authorization Status-Primary : Awaiting callback Reference Number-Primary : Pend ref # [id number]. Authorized Service Begin Date-Primary : 01/16/2021 EDT Authorization Comments-Primary : CM gave a medicaid ID no. Per [place] pt has [employer]. Notified [facility] clinicals submitted via [facility] portal and faxed via [employer] from 01/16 to 01/29 for Ip approval [...] on filedocumented in this encounter Care Teams Heart Doctor Relationship Specialty Start Date End Date Yuan Mccracken MD [address] [place] [phone] PCP - General Family Medicine 09/23/22 documented as of this encounter
--- OUTSIDE RECORDS SUMMARY | 2025-07-15 10:26 | XMS_ITS | Encounter Summary ---
Author Organization [employer] ([place], [place], [place], [place], [place]) Address [address] [place] [address] Care Team Providers Care Employee Development Specialist Name Role Phone Yuan Mccracken MD Primary Care Provider [phone] Encounter Details Date Type Department Care Team (Late st Contact Info) Description 01/21/2021 Transcribed Document [facility] [place] [facility] [place] [address] ProviderPerry MD [address] [place] [address] Social History Tobacco Use Types [...] -low grade temp overnight 100.6; discussed with Zomarlene will stop rocephin and start zosyn; WBC [...] - Medical Apixaban 5 mg, Oral, Tab, [id number], Routine, Start 01/21/21 10:00:00 EDT, 01/21/21 9:43:00 [...] PRN Eliquis, 5 mg= 1 Tab, Oral, [id number] Lac-Hydrin 12% topical lotion, 1 Application, Topical, BID magnesium sulfate, 2 Gram= 50 mL, IV Piggyback, Daily, PRN magnesium sulfate, 2 Gram= 50 mL, IV Piggyback, Q2H, PRN metoprolol tartrate, 50 mg= 1 Tab, Oral, BID MiraLax, 17 Gram= 1 Packet, Oral, Daily, PRN Mucinex, 600 mg= 1 Tab, Oral, BID, PRN nystatin, [id number] Units= 5 mL, Swish and Swallow , [...] ALYC # 2 K/uL 01/21/2021 03:04 EDT [place] Percent Man 4 % 01/21/2021 03:04 EDT Eos Percent Man 2 % 01/21/2021 03:04 EDT Venus Percent Man 2 % (High) 01/21/2021 03:04 EDT RBC Morphology Normal 01/21/2021 03:[address] Estimate Adequate 01/21/2021 03:04 EDT Slide Review Add Diff 01/21/2021 03:04 EDT PTT Heparin 75.6 Second(s) (Critical) 01/21/2021 03:04 EDT PTT Heparin 65.3 Second(s) 01/20/2021 22:36 EDT PTT Heparin 50.4 Second(s) 01/20/2021 16:31 EDT Electronically signed by [facility] Conversion Exhaust And Muffler Repairer Cerner at 12/07/2022 6:27 PM CDT documented in this encounter Plan of Treatment Not on file documented as of this encounter Visit Diagnoses Not on filedocumented in this encounter Care Teams Employee Development Specialist Relationship Specialty Start Date End Date Yuan Mccracken MD [address] [place] [phone] PCP - General Family Medicine 09/23/22 documented as of this encounter
--- OUTSIDE RECORDS SUMMARY | 2025-07-15 10:26 | XMS_ITS | Encounter Summary ---
Author Organization [employer] ([place], [place], [place], [place], [place]) Address [address] [place] [address] Care Team Providers Care Ultrasonic Solderer Name Role Phone Yuan Mccracken MD Primary Care Provider [phone] Encounter Details Date Type Department Care Team (Late st Contact Info) Description 01/17/[address] [facility] [place] [address] [place] [address] ProviderPerry MD [address] [place] [address] Social History Tobacco Use Types [...] 01/17/2021 9:16 EDT by MAHSA PAGAN Mkt Interventional Cardiologist-Utilization Mgt Primary Insurance Authorization Authorization and Policy Numbers : Insurance 1 Health Plan: SELF PAY Policy Number: Authorization Number: Insurance Primary Name : Self-pay Historical Authorization Comments-Primary : No Authorization Comments Found MAHSA PAGAN Mkt Interventional Cardiologist-Utilization Mgt - 01/17/2021 9:16 EDT Electronically signed by Gayle Laguerre Conversion Vp Global Marketing Solutions Cerner at 12/07/2022 6:16 PM CDT documented in this encounter Plan of Treatment Not on file documented as of this encounter Visit Diagnoses Not on filedocumented in this encounter Care Teams Ultrasonic Solderer Relationship Specialty Start Date End Date Yuan Mccracken MD [facility] [place] [phone] PCP - General Family Medicine 09/23/22 documented as of this encounter
--- OUTSIDE RECORDS SUMMARY | 2025-07-15 10:26 | XMS_ITS | Encounter Summary ---
Author Organization [employer] ([place], [place], [place], [place], [place]) Address [address] [place] [address] Care Team Providers Care Fuel Efficient Aircraft Designer Name Role Phone Yuan Mccracken MD Primary Care Provider [phone] Encounter Details Date Type Department Care Team (Late st Contact Info) Description 01/21/2021 Transcribed Document [facility] [place] [address] [place] [address] ProviderPerry MD [address] [place], [place] [address] Social History Tobacco Use Types Packs/Day Years Used Date Smoking Tobacco: Never Assessed Comments Unknown Sex and Gender Information Value Date Recorded Sex Assigned at Not on file Legal Sex Female 12:32 PM CDT Gender Identity Not on file Sexual Orientation Not on file documented as of this encounter Miscellaneous Notes * Cerner Conversion Note - Perry ProviderMD - 01/21/2021 1:34 PM CDT Consult Phone Call Documentation Entered On: 01/21/2021 14:36 EDT Performed On: 01/21/2021 13:34 EDT by Sil Nuno, [facility] Coord Phone Call for Consults Consult Phone Call/Page Attempt : First call Consult Reason : worsening rle cellulitis Physician Requesting Consult : MAHSA RINALDI MD Physician Requested for Consult : JAGUAR REGALADO MD-INF Provider Service Notified Name : Infectious Disease Consult, Additional Information : consulted the office about consult. Sil Nuno [facility] Coord - 01/21/2021 14:35 EDT documented in this encounter Plan of Treatment Not on file documented as of this encounter Visit Diagnoses Not on filedocumented in this encounter Care Teams Fuel Efficient Aircraft Designer Relationship Specialty Start Date End Date Yuan Mccracken MD [address] [place] [phone] PCP - General Family Medicine 09/23/22 documented as of this encounter
--- OUTSIDE RECORDS SUMMARY | 2025-07-15 10:26 | XMS_ITS | Encounter Summary ---
Author Organization [employer] ([place], [place], [place], [place], [place]) Address [address] [place] [address] Care Team Providers Care Lining Stitcher Name Role Phone Yuan Mccracken MD Primary Care Provider [phone] Encounter Details Date Type Department Care Team (Late st Contact Info) Description 01/22/2021 Transcribed Document [facility] [place] [address] [place] [address] ProviderPerry MD [address] [place], [place] [id number] Social History Tobacco Use Types Packs/Day Years [...] Daily, PRN: Constipation Eliquis: 5 mg, Oral, [id number] Lac-Hydrin 12% topical lotion: 1 Application, Topical, [...] mL: 1,750 mg, 250 mL/Hr, IV Piggyback, [id number] Physical Examination VS/Measurements Vitals Signs (last 24 [...] EDT Height Source Stated Height Entry Format [place] Height/Length, SAMMARINESE (ft) 5 ft Height/Length SAMMARINESE 4 Inch CLINICALHEIGHT 162.56 cm Routine Weight Entry Format [place] Routine Weight, Pounds 270 lb Routine Weight, [...] on filedocumented in this encounter Care Teams Lining Stitcher Relationship Specialty Start Date End Date Yuan Mccracken MD [address] [place] [phone] PCP - General Family Medicine 09/23/22 documented as of this encounter
--- OUTSIDE RECORDS SUMMARY | 2025-07-15 10:26 | XMS_ITS | Encounter Summary ---
Author Organization [employer] ([place], [place], [place], [place], [place]) Address [address] [place] [address] Care Team Providers Care Meat Manager Name Role Phone Yuan Mccracken MD Primary Care Provider [phone] Encounter Details Date Type Department Care Team (Late st Contact Info) Description 01/27/2021 Transcribed Document [facility] [place] Family Medicine [address] [place] [address] ProviderPerry MD [address] [place], [place] [address] Social History Tobacco Use Types Packs/Day Years [...] 1 Health Plan: MEDICAID PENDING Policy Number: [id number] Authorization Number: Insurance Primary Name : MEDICAID PENDING Policy Number: [id number] Authorized Service Begin Date-Primary : 01/16/2021 EDT [...] - 01/27/2021 8:41 EDT Electronically signed by [facility] Conversion Crane Follower Cerner at 12/07/2022 6:05 PM CDT documented in this encounter Plan of Treatment Not on file documented as of this encounter Visit Diagnoses Not on filedocumented in this encounter Care Teams Meat Manager Relationship Specialty Start Date End Date Yuan Mccracken MD [address] [place] [phone] PCP - General Family Medicine 09/23/22 documented as of this encounter
--- OUTSIDE RECORDS SUMMARY | 2025-07-15 10:26 | XMS_ITS | Encounter Summary ---
Author Organization [employer] ([place], [place], [place], [place], [place]) Address [address] [place] [address] Care Team Providers Care Billing Customer Service Representative Name Role Phone Yuan Mccracken MD Primary Care Provider [phone] Encounter Details Date Type Department Care Team (Late st Contact Info) Description 01/22/2021 Transcribed Document [facility] [place] Family Medicine [address] [place] [address] ProviderPerry MD [address] [place] [address] Social History Tobacco Use Types Packs/Day Years Used Date Smoking Tobacco: Never Assessed Comments Unknown Sex and Gender Information Value Date Recorded Sex Assigned at Not on file Legal Sex Female 12:32 PM CDT Gender Identity Not on file Sexual Orientation Not on file documented as of this encounter Miscellaneous Notes * Cerner Conversion Note - Historical ProviderMD - 01/22/2021 11:38 AM CDT Evaluation, [...] currently due to pt recently discharged from [facility] to a SNF Persons Assisting Patient at [...] : Verbalizes understanding, Returns demonstration, Needs reinforcement WILSONCESIA, PT - 01/23/2021 16:51 EDT Indication Assesessment, [...] below WILSONCESIA, PT - 01/23/2021 16:51 EDT WILSONCESIA, PT - 01/23/2021 16:51 EDT Ambulation STG Grid Goal #1 Device : Walker, front wheel Distance : 50 ft Assist : Assist, minimal Date to Meet : 01/26/2021 EDT Goal Status : Intial Goal CESIA WILSON, PT - 01/23/2021 16:51 EDT Other PT STG Grid Goal #1 Goal #2 Goal : Open area to measure 1.5cmX0.8cm BLE malleoli will be < 29.0cm Date to Meet : 01/28/2021 EDT 01/28/2021 EDT Goal Status : Progressing, continue Initial goal CESIA WILSON, PT - 01/23/2021 16:51 EDT WILSONCESIA, PT - 01/23/2021 16:51 EDT Credit Risk Officer Goals Mobility/Bed Mobility LTG PT Grid Goal [...] EDT WILSONEDWINCESIA, PT - 01/23/2021 16:51 EDT WILSON CESIA, [...] on filedocumented in this encounter Care Teams Billing Customer Service Representative Relationship Specialty Start Date End Date Yuan Mccracken MD [address] [place] [phone] PCP - General Family Medicine 09/23/22 documented as of this encounter
--- OUTSIDE RECORDS SUMMARY | 2025-07-15 10:26 | XMS_ITS | Encounter Summary ---
Author Organization [employer] ([place], [place], [place], [place], [place]) Address [address] [place] [address] Care Team Providers Care Buckle Coverer Name Role Phone Yuan Mccracken MD Primary Care Provider [phone] Encounter Details Date Type Department Care Team (Late st Contact Info) Description 01/17/2021 Transcribed Document [facility] Cardiology [address] [place] [phone] [place] [address] [place] [address] [address] [place] [address] Social History Tobacco Use Types Packs/Day Years [...] GRUPO SMITH MD-CAR Basic Information PCP: Primary Information Systems Security Specialist: None Chief Complaint shortness of breath History of Present Illness 60 year old female presented to the [facility] yesterday with complaints of progressively [...] cefTRIAXone: 1 Gram, 100 mL/Hr, IV Piggyback, [id number] doxycycline + Sodium Chloride 0.9% intravenous solution 100 mL: 100 mg, 50 mL/Hr, IV Piggyback, [id number] heparin: 5,000 Units, SubCutaneous, Q8H nystatin: 500,000 Units, Swish and Spit, QID sodium bicarbonate injection 150 mEq + Dextrose 5% in Water intravenous solution 1,000 mL: 100 mL/hour, IntraVENous, Medications (12) Active Scheduled: (5) cefTRIAXone 1 Gram, IV Piggyback, D42PEjo doxycycline hyclate + NaCl 0.9% 100 mL 100 mg, IV Piggyback, [id number] famotidine 20 mg tab 20 mg 1 [...] GAN PA-C Past Medical History: Active Obesity ([id number]) Family History: Entire family history is negative. Procedure history: None Social History Social & Psychosocial Habits Home/Environment 01/16/2021 Living situation: Home/Independent Tobacco Comment: nonsmoker - 01/16/2021 19:16 - DAWNA GAN PA-C . Physical Examination VS/Measurements Vitals Signs (last 24 hrs) Last Charted Minimum Maximum Temp 97.7 (MAY 29 12:00) 97.7 (JANUARY 17 12:00) 98.7 (JANUARY [...] sounds. Musculoskeletal: No deformity. Integumentary: Warm, Dry, King. Neurologic: Alert, Oriented. Psychiatric: Cooperative. Review / Management JANUARY 17 10:45 138 105 C 124 / H 158 L 3.3 L 18 H 4.40 \ JANUARY 17 10:45 \ L 9.0 / H 18.1 292 / L 27.0 \ Cardiac Markers (Current Encounter/Past 24 Hours) ProBNP 1385 pg/mL MO 01/16/2021 18:53 Blood Gases (Current Encounter/Past 24 Hours) pH Art 7.44 01/17/2021 09:39 pCO2 Art 22.6 CRIT 01/17/2021 09:39 pO2 Art 118.0 MO 01/17/2021 09:39 HCO3 Art 15.4 LOW 01/17/2021 [...] 01/17/2021 09:39 Radiology Results (Last 48 hours) [id number] -- 01/16/2021 19:34 CR Chest 1 Vw [...] on filedocumented in this encounter Care Teams Buckle Coverer Relationship Specialty Start Date End Date Yuan Mccracken MD [address] [place] [phone] PCP - General Family Medicine 09/23/22 documented as of this encounter
--- OUTSIDE RECORDS SUMMARY | 2025-07-15 10:26 | XMS_ITS | Encounter Summary ---
Author Organization [employer] ([place], [place], [place], [place], [place]) Address [address] [place] [address] Care Team Providers Care Early Childhood Specialist Name Role Phone Yuan Mccracken MD Primary Care Provider [phone] Encounter Details Date Type Department Care Team (Late st Contact Info) Description 01/21/2021 Transcribed Document [facility] [place] [facility] [place] [address] ProviderPerry MD [address] [place], [place] [id number] Social History Tobacco Use Types Packs/Day Years [...] of review (CARMEN MARLOW RN 01/20/2021 13:51) DWIGTH PERALTA RN-Utilization Review - 01/21/2021 8:18 EDT Electronically signed by Carlotta, [facility] Conversion Home Appliances Mechanic Cerner at 12/07/2022 6:06 PM CDT documented in this encounter Plan of Treatment Not on file documented as of this encounter Visit Diagnoses Not on filedocumented in this encounter Care Teams Early Childhood Specialist Relationship Specialty Start Date End Date Yuan Mccracken MD [address] [place] [phone] PCP - General Family Medicine 09/23/22 documented as of this encounter
--- OUTSIDE RECORDS SUMMARY | 2025-07-15 10:26 | XMS_ITS | Encounter Summary ---
Author Organization [employer] ([place], [place], [place], [place], [place]) Address [address] [place] [address] Care Team Providers Care Soldering Inspector Name Role Phone Yuan Mccracken MD Primary Care Provider [phone] Encounter Details Date Type Department Care Team (Late st Contact Info) Description 01/17/2021 Transcribed Document [facility] [place] Medicine [address] [place] [address] ProviderPerry MD [address] [place] [address] Social History Tobacco Use Types [...] FRANCISCO MACEDO PT - 01/17/2021 14:44 EDT Electronically signed by Carlotta [facility] Conversion Sweatband Decorating Machine Operator Cerner at 12/07/2022 6:11 PM CDT documented in this encounter Plan of Treatment Not on file documented as of this encounter Visit Diagnoses Not on filedocumented in this encounter Care Teams Soldering Inspector Relationship Specialty Start Date End Date Yuan Mccracken MD [address] [place] [phone] PCP - General Family Medicine 09/23/22 documented as of this encounter
--- OUTSIDE RECORDS SUMMARY | 2025-07-15 10:26 | XMS_ITS | Encounter Summary ---
Author Organization [employer] ([place], [place], [place], [place], [place]) Address [address] [place] [address] Care Team Providers Care Storage Solutions Architect Name Role Phone Yuan Mccracken MD Primary Care Provider [phone] Encounter Details Date Type Department Care Team (Late st Contact Info) Description 01/22/2021 Transcribed Document [facility] [place] [address] [place] [address] ProviderPerry MD [address] [place], [place] [address] Social History Tobacco Use Types Packs/Day Years Used Date Smoking Tobacco: Never Assessed Comments Unknown Sex and Gender Information Value Date Recorded Sex Assigned at Not on file Legal Sex Female 12:32 PM CDT Gender Identity Not on file Sexual Orientation Not on file documented as of this encounter Miscellaneous Notes * Cerner Conversion Note - Perry ProviderMD - 01/22/2021 1:47 PM CDT On Going Discharge Planning Entered On: 01/22/2021 13:50 EDT Performed On: 01/22/2021 13:47 EDT by Maryjane Gonzalez V, Nurse Licensed Practical Life Scientist Care Management Progress Note Discharge Arrangements : Patient Post-Acute Information Patient Name: CHANI VELASQUEZ Gender: Female : 56 Age: 60 Years No Post-Acute Placement(s) Listed No Post-Acute Service(s) Listed No Curaspan Referral(s) Listed Discharge Options Discussed with Patient : Acute rehabilitation, Home Health, residential Barriers to Discharge Identified : Clinical Condition of Patient Barriers to Discharge Unresolved : Clinical Condition of Patient Referral Indicators For Complex SWK Interventions : Other: self pay-Medicaid pending Is the Patient Meeting Medical Necessity : Yes Did you Attend Multidisciplinary Rounds? : Yes Maryjane Gonzalez V Nurse Licensed Practical [facility] [place]/22/2021 13:47 EDT Narrative Progress Note Narrative Progress Note : HD#5, ELOS-not recorded, RRS-Moderate, Boost-3 Patient on 2L 02/. IV Abx-Vanc and Zosyn. Wound care by PT. PT/OT recommending rehab. CM sent referrals via [employer]. Patient's is a resident at [facility]. Patient is self pay and has no health or presription coverage. Placement may be difficult due to pending Medicaid status. CM to follow patient's progess and SNF placement options. Maryjane Gonzalez V Nurse Licensed Practical [facility] [place] 01/22/2021 13:47 EDT documented in this encounter Plan of Treatment Not on file documented as of this encounter Visit Diagnoses Not on filedocumented in this encounter Care Teams Storage Solutions Architect Relationship Specialty Start Date End Date Yuan Mccracken MD [address] [place] [phone] PCP - General Family Medicine 09/23/22 documented as of this encounter
--- OUTSIDE RECORDS SUMMARY | 2025-07-15 10:26 | XMS_ITS | Encounter Summary ---
Author Organization [employer] ([place], [place], [place], [place], [place]) Address [address] [place] [address] Care Team Providers Care Automotive Service Management Teacher Name Role Phone Yuan Mccracken MD Primary Care Provider [phone] Encounter Details Date Type Department Care Team (Late st Contact Info) Description 01/17/2021 Transcribed Document [facility] [place] [facility] [place] [address] ProviderPerry MD [address] [place] [address] Social History Tobacco Use Types [...] Perry ProviderMD - 01/17/2021 2:00 AM CDT Make Up Operator Details Entered On: 01/17/2021 6:12 EDT Performed [...] 01/17/2021 6:12 EDT Electronically signed by Carlotta, [facility] Conversion Director Of Graduate Admissions Cerner at 12/07/2022 6:29 PM CDT documented in this encounter Plan of Treatment Not on file documented as of this encounter Visit Diagnoses Not on filedocumented in this encounter Care Teams Automotive Service Management Teacher Relationship Specialty Start Date End Date Yuan Mccracken MD [address] [place] [address] PCP - General Family Medicine 09/23/22 documented as of this encounter
--- OUTSIDE RECORDS SUMMARY | 2025-07-15 10:26 | XMS_ITS | Encounter Summary ---
Author Organization [employer] ([place], [place], [place], [place], [place]) Address [address] [place] [address] Care Team Providers Care Scrap Kettle Tender Name Role Phone Yuan Mccracken MD Primary Care Provider [phone] Encounter Details Date Type Department Care Team (Late st Contact Info) Description 01/21/2021 Transcribed Document [facility] [place] [facility] [address] ProviderPerry MD [address] [place], [place] [address] Social History Tobacco Use Types Packs/Day Years [...] On: 01/21/2021 15:20 EDT by JORDEN DELCID, RN-Power Press Operator Initial Assessment I Previously Documented Living Environment : No qualifying data available. Living Situation : Home Patient Lives With : Alone, Other: alone currently due to pt recently discharged from [facility] to a SNF Emergency Contact #1 : Dion Andria Emergency Contact #1 Emergency Contact #1 Relationship : son Emergency Contact #2 : Chai Alvaradopedro Emergency Contact #2 Emergency Contact #2 Relationship : spouse/resident [facility] Does Patient have PCP Listed? : No Medical Durable Power of Director Engineering Name : no Legal Guardian : No Is Guardianship Needed : No JORDEN DELCID RN-Power Press Operator - 01/21/2021 15:20 EDT Initial Assessment II Sensory and Motor Deficits : Cognitive deficit, Weakness Current Home Treatments and Equipment : Bedside commode, Cane, Shower chair, Walker Does the Patient have a Floor to SNF Benefit? : No JORDEN DELCID RN-Power Press Operator - 01/21/2021 15:20 EDT Discharge Needs I Anticipated Discharge Date : 01/23/2021 EDT Anticipated Discharge To, CM : Home with home health, Rehabilitation Unit, group home facility Current Home Treatment/Equipment : Current Home Treatment/Equipment No qualifying data available. Post Acute/Home Treatments : Bedside commode, Cane, Shower chair, Walker Documentation Status Complete : Yes JORDEN DELCID RN-Power Press Operator - 01/21/2021 15:20 EDT Discharge Needs II Professional Skilled Services : Professional Skilled Services No qualifying data available. Needs Assistance with Transportation : Maybe Discharge Options Discussed with Patient : Acute rehabilitation, Home Health, jail JORDEN DELCID RN-Power Press Operator - 01/21/2021 15:20 EDT Narrative Note Narrative Note : HD# 5. elos: not documented. RAR: moderate 57. BOOST: 3 ED admit. severe hyperkalemia. metabolic acidosis. acute renal failure. afib-rvr. lower ext cellulitis. left renal calculi. 02 4L nc. cardizem gtt to off. hep gtt to off. doxycycline/zosyn iv. coccyx mist rx. PT/OT steps to chair. spoke with Ms Velasquez. she resides in [facility]. lives alone. her spouse, Chai, is resident of [facility], available by phone. she has mentioned equipment. no hh or rehab stays. pt has no health insurance. referral to [facility], ? medicaid eligible. pt has no pcp. referral to pt access for pcp assignment. dcp: rehab vs hh. will need payor source established. spoke with bedside RNLala CARRIE W RN-Power Press Operator - 01/21/2021 15:25 EDT documented in this encounter Plan of Treatment Not on file documented as of this encounter Visit Diagnoses Not on filedocumented in this encounter Care Teams Scrap Kettle Tender Relationship Specialty Start Date End Date Yuan Mccracken MD [address] [place] [address] PCP - General Family Medicine 09/23/22 documented as of this encounter
--- OUTSIDE RECORDS SUMMARY | 2025-07-15 10:26 | XMS_ITS | Encounter Summary ---
Author Organization [employer] ([place], [place], [place], [place], [place]) Address [address] [place] [address] Care Team Providers Care Intelligence Consultant Name Role Phone Yuan Mccracken MD Primary Care Provider [phone] Encounter Details Date Type Department Care Team (Late st Contact Info) Description 01/22/2021 Transcribed Document [facility] [place] [facility] [address] ProviderPerry MD [address] [place], [place] [address] Social History Tobacco Use Types Packs/Day Years [...] 01/22/2021 8:29 EDT Electronically signed by Carlotta [facility] Conversion Master Black Belt Cerner at 12/07/2022 6:13 PM CDT documented in this encounter Plan of Treatment Not on file documented as of this encounter Visit Diagnoses Not on filedocumented in this encounter Care Teams Intelligence Consultant Relationship Specialty Start Date End Date Yuan Mccracken MD [address] [place] [phone] PCP - General Family Medicine 09/23/22 documented as of this encounter
--- OUTSIDE RECORDS SUMMARY | 2025-07-15 10:26 | XMS_ITS | Encounter Summary ---
Author Organization [employer] ([place], [place], [place], [place], [place]) Address [address] [place] [address] Care Team Providers Care Pole Lift Operator Name Role Phone Yuan Mccracken MD Primary Care Provider [phone] Encounter Details Date Type Department Care Team (Late st Contact Info) Description 01/17/2021 Transcribed Document [facility] [place] [address] [place] [address] ProviderPerry MD [address] [place] [address] Social History Tobacco Use [...] on filedocumented in this encounter Care Teams Pole Lift Operator Relationship Specialty Start Date End Date Yuan Mccracken MD [address] [place] [phone] PCP - General Family Medicine 09/23/22 documented as of this encounter
--- OUTSIDE RECORDS SUMMARY | 2025-07-15 10:26 | XMS_ITS | Encounter Summary ---
Author Organization [employer] ([place], [place], [place], [place], [place]) Address [address] [place] [address] Care Team Providers Care It Application Development Manager Name Role Phone Yuan Mccracken MD Primary Care Provider [phone] Encounter Details Date Type Department Care Team (Late st Contact Info) Description 01/22/2021 Transcribed Document [facility] [place] [facility] [place] [address] ProviderPerry MD [address] [place] [address] Social History Tobacco Use Types [...] - Medical Apixaban 5 mg, Oral, Tab, [id number], Routine, Start 01/21/21 10:00:00 EDT, 01/21/21 9:43:00 [...] PRN Eliquis, 5 mg= 1 Tab, Oral, [id number] Lac-Hydrin 12% topical lotion, 1 Application, Topical, BID Lasix, 20 mg= 1 Tab, Oral, Daily magnesium sulfate, 2 Gram= 50 mL, IV Piggyback, Daily, PRN magnesium sulfate, 2 Gram= 50 mL, IV Piggyback, Q2H, PRN metoprolol tartrate, 50 mg= 1 Tab, Oral, BID MiraLax, 17 Gram= 1 Packet, Oral, Daily, PRN Mucinex, 600 mg= 1 Tab, Oral, BID, PRN nystatin, [id number] Units= 5 mL, Swish and Swallow , [...] ALYC # 2 K/uL 01/22/2021 06:25 EDT [place] Percent Man 2 % (Low) 01/22/2021 06:25 [...] Diff 01/22/2021 06:25 EDT Electronically signed by Carlotta [facility] Conversion Travel Director Cerner at 12/07/2022 6:23 PM CDT documented in this encounter Plan of Treatment Not on file documented as of this encounter Visit Diagnoses Not on filedocumented in this encounter Care Teams It Application Development Manager Relationship Specialty Start Date End Date Yuan Mccracken MD [address] [place] [phone] PCP - General Family Medicine 09/23/22 documented as of this encounter
--- OUTSIDE RECORDS SUMMARY | 2025-07-15 10:27 | XMS_ITS | Encounter Summary ---
Author Organization [employer] ([place], [place], [place], [place], [place]) Address [address] [place] [address] Care Team Providers Care Label Printer Name Role Phone Yuan Mccracken MD Primary Care Provider [phone] Encounter Details Date Type Department Care Team (Late st Contact Info) Description 02/06/2021 Transcribed Document [facility] [place] [address] [place] [address] ProviderPerry MD [address] [place] [address] Social History Tobacco Use Types Packs/Day Years Used Date Smoking Tobacco: Never Assessed Comments Unknown Sex and Gender Information Value Date Recorded Sex Assigned at Not on file Legal Sex Female 12:32 PM CDT Gender Identity Not on file Sexual Orientation Not on file documented as of this encounter Miscellaneous Notes * Cerner Conversion Note - Perry ProviderMD - 02/06/2021 6:43 PM CDT Patient Education [...] these instructions at home: Medicines ??? Take ushl-fhd-duxhtnz and prescription medicines only as told by [...] provider. Document Revised: 12/28/2018 Document Reviewed: 12/28/2018 [employer] Patient Education ? 2020 [employer]. documented in this encounter Plan of Treatment Not on file documented as of this encounter Visit Diagnoses Not on filedocumented in this encounter Care Teams Label Printer Relationship Specialty Start Date End Date Yuan Mccracken MD [address] [place] [phone] PCP - General Family Medicine 09/23/22 documented as of this encounter
--- OUTSIDE RECORDS SUMMARY | 2025-07-15 10:27 | XMS_ITS | Encounter Summary ---
Author Organization [employer] ([place], [place], [place], [place], [place]) Address [address] [place] [address] Care Team Providers Care Worship Pastor Name Role Phone Yuan Mccracken MD Primary Care Provider [phone] Encounter Details Date Type Department Care Team (Late st Contact Info) Description 01/26/2021 Transcribed Document [facility] [place] [address] [place] [address] ProviderPerry MD [address] [place] [address] Social History Tobacco Use Types [...] KIRILL COFFEY, PT - 01/28/2021 11:06 EDT Manager Part Goals Mobility/Bed Mobility LTG PT Grid Goal [...] on filedocumented in this encounter Care Teams Worship Pastor Relationship Specialty Start Date End Date Yuan Mccracken MD [address] [place] [phone] PCP - General Family Medicine 09/23/22 documented as of this encounter
--- OUTSIDE RECORDS SUMMARY | 2025-07-15 10:27 | XMS_ITS | Encounter Summary ---
Author Organization [employer] ([place], [place], [place], [place], [place]) Address [address] [place] [address] Care Team Providers Care Gate Attendant Name Role Phone Yuan Mccracken MD Primary Care Provider [phone] Encounter Details Date Type Department Care Team (Late st Contact Info) Description 01/31/2021 Transcribed Document [facility] [place] [facility] [place] [address] ProviderPerry MD [address] [place] [address] Social History Tobacco Use Types [...] Perry ProviderMD - 01/31/2021 2:00 AM CDT Plant Tech Details Entered On: 01/31/2021 4:41 EDT Performed [...] 01/31/2021 4:41 EDT Electronically signed by Carlotta [facility] Conversion Popcorn Candy Maker Cerner at 12/07/2022 6:04 PM CDT documented in this encounter Plan of Treatment Not on file documented as of this encounter Visit Diagnoses Not on filedocumented in this encounter Care Teams Gate Attendant Relationship Specialty Start Date End Date Yuan Mccracken MD [address] [place] [phone] PCP - General Family Medicine 09/23/22 documented as of this encounter
--- OUTSIDE RECORDS SUMMARY | 2025-07-15 10:27 | XMS_ITS | Encounter Summary ---
Author Organization [employer] ([place], [place], [place], [place], [place]) Address [address] [place] [address] Care Team Providers Care Healthcare Management Consultant Name Role Phone Yuan Mccracken MD Primary Care Provider [phone] Encounter Details Date Type Department Care Team (Late st Contact Info) Description 01/31/2021 Transcribed Document [facility] [place] [address] [place] [address] ProviderPerry MD [address] [place] [address] Social History Tobacco Use Types [...] VISHAL GÓMEZ, PT - 01/31/2021 17:25 EDT Care Home Goals Mobility/Bed Mobility LTG PT Grid [...] - 01/31/2021 17:25 EDT Electronically signed by [facility] Conversion Warp Scouring Vat Tender Cerner at 12/07/2022 6:23 PM CDT documented in this encounter Plan of Treatment Not on file documented as of this encounter Visit Diagnoses Not on filedocumented in this encounter Care Teams Healthcare Management Consultant Relationship Specialty Start Date End Date Yuan Mccracken MD [address] [place] [phone] PCP - General Family Medicine 09/23/22 documented as of this encounter
--- OUTSIDE RECORDS SUMMARY | 2025-07-15 10:27 | XMS_ITS | Encounter Summary ---
Author Organization [employer] ([place], [place], [place], [place], [place]) Address [address] [place] [address] Care Team Providers Care Commercial Drone Software Developer Name Role Phone Yuan Mccracken MD Primary Care Provider [phone] Encounter Details Date Type Department Care Team (Late st Contact Info) Description 01/23/2021 Transcribed Document [facility] [place] [address] [place] [address] ProviderPerry MD [address] [place] [address] Social History Tobacco Use Types Packs/Day Years Used Date Smoking Tobacco: Never Assessed Comments Unknown Sex and Gender Information Value Date Recorded Sex Assigned at Not on file Legal Sex Female 12:32 PM CDT Gender Identity Not on file Sexual Orientation Not on file documented as of this encounter Miscellaneous Notes * Cerner Conversion Note - Perry ProviderMD - 01/23/2021 11:08 AM CDT PLEASE MODIFY [...] Orders - Vancomycin 1,750 mg IV Q24H CDS/Business Operations Director Signature: __Jim Koch___ Phone #: __[phone]__ Date/Time: __01/23/21__ This is a permanent part of the Medical Record Q2019 [facility] [employer] Updated: Electronically signed by Mamadou Laguerre Conversion Automotive Technology Instructor Cerner at 12/07/2022 6:27 PM CDT documented in this encounter Plan of Treatment Not on file documented as of this encounter Visit Diagnoses Not on filedocumented in this encounter Care Teams Commercial Drone Software Developer Relationship Specialty Start Date End Date Yuan Mccracken MD [address] [place] [phone] PCP - General Family Medicine 09/23/22 documented as of this encounter
--- OUTSIDE RECORDS SUMMARY | 2025-07-15 10:27 | XMS_ITS | Encounter Summary ---
Author Organization [employer] ([place], [place], [place], [place], [place]) Address [address] [place] [address] Care Team Providers Care Timber Harvester Operator Name Role Phone Yuan Mccracken MD Primary Care Provider [phone] Encounter Details Date Type Department Care Team (Late st Contact Info) Description 01/25/2021 Transcribed Document [facility] [place] Family Medicine [address] [place] [address] ProviderPerry MD [address] [place] [address] Social History Tobacco Use Types [...] on filedocumented in this encounter Care Teams Timber Harvester Operator Relationship Specialty Start Date End Date Yuan Mccracken MD [facility] [place] [phone] PCP - General Family Medicine 09/23/22 documented as of this encounter
--- OUTSIDE RECORDS SUMMARY | 2025-07-15 10:27 | XMS_ITS | Encounter Summary ---
Author Organization [employer] ([place], [place], [place], [place], [place]) Address [address] [place] [address] Care Team Providers Care Layer Off Name Role Phone Yuan Mccracken MD Primary Care Provider [phone] Encounter Details Date Type Department Care Team (Late st Contact Info) Description 01/23/2021 Transcribed Document [facility] [place] [address] [place] [address] ProviderPerry MD [address] [place] [address] Social History Tobacco Use Types [...] on filedocumented in this encounter Care Teams Layer Off Relationship Specialty Start Date End Date Yuan Mccracken MD [facility] [place] [phone] PCP - General Family Medicine 09/23/22 documented as of this encounter
--- OUTSIDE RECORDS SUMMARY | 2025-07-15 10:27 | XMS_ITS | Encounter Summary ---
Author Organization [employer] ([place], [place], [place], [place], [place]) Address [address] [place] [address] Care Team Providers Care Clam Treader Name Role Phone Yuan Mccracken MD Primary Care Provider [phone] Encounter Details Date Type Department Care Team (Late st Contact Info) Description 01/29/[address] [facility] [place] [address] [place] [address] ProviderPerry MD [address] [place] [address] Social History Tobacco Use Types [...] Bed scale Routine Weight Entry Format : Van Zandt Routine Weight, Pounds : 267 lb Routine Weight, Ounces : 5 oz Routine Weight Calculation : 121.51 kg Height Source : Stated Height Entry Format : Van Zandt Height, Feet : 5 ft Height, Inches : 4 Inch Clinical Height : 162.56 cm Body Surface Area (BSA), Routine : 2.21 m2 Body Mass Index (BMI), Routine : 45.98 kg/m2 PAYTON MONIQUE RN-PATIENT CARE BEDSIDE NON-EXEMPT - 01/29/2021 5:59 EDT Electronically signed by Carlotta [facility] Conversion Training Instructor Cerner at 12/07/2022 6:03 PM CDT documented in this encounter Plan of Treatment Not on file documented as of this encounter Visit Diagnoses Not on filedocumented in this encounter Care Teams Clam Treader Relationship Specialty Start Date End Date Yuan Mccracken MD [address] [place] [phone] PCP - General Family Medicine 09/23/22 documented as of this encounter
--- OUTSIDE RECORDS SUMMARY | 2025-07-15 10:27 | XMS_ITS | Encounter Summary ---
Author Organization [employer] ([place], [place], [place], [place], [place]) Address [address] [place] [address] Care Team Providers Care Light Bulb Assembler Name Role Phone Yuan Mccracken MD Primary Care Provider [phone] Encounter Details Date Type Department Care Team (Late st Contact Info) Description 02/06/2021 Transcribed Document [facility] [place] [address] [place] [address] ProviderPerry MD [address] [place], [place] [address] Social History Tobacco Use Types Packs/Day Years [...] On: 02/06/2021 16:58 EDT by Mallorie Betancur, Painter Structural Steel Patient Resource Center Provider Status : No Assigned Primary Care Established Provider Name : NO PCP Patient Phone Number : [phone] Patient Insurance Type : Insurance pending Source [...] EDT CM[facility] Other Provider Name : DAMIAN HERNANDEZ [facility] Other Provider Appointment Date/Time : 03/04/2021 9:45 EDT Qualify for Diabetes and/or Nutrition Referral : No Wound Care Appointment Made : No Why Patient Visited ED- Specialty spent : Other How Patient Arrived at ED : Other Primary Language : Togolese Patient Resource Center Comment : Patient needs follow up appointments. Called and scheduled appointments with Dr. Hoffman, Dr. Hare, Dr. Mcmillan, and Dr. Pizarro. Called patient with appointments. No answer. Mailed appointments. Follow Up Needed : No Mallorie Betancur, Painter Structural Steel - 02/06/2021 16:58 EDT documented in this encounter Plan of Treatment Not on file documented as of this encounter Visit Diagnoses Not on filedocumented in this encounter Care Teams Light Bulb Assembler Relationship Specialty Start Date End Date Yuan Mccracken MD [address] [place] [phone] PCP - General Family Medicine 09/23/22 documented as of this encounter
--- OUTSIDE RECORDS SUMMARY | 2025-07-15 10:27 | XMS_ITS | Encounter Summary ---
Author Organization [employer] ([place], [place], [place], [place], [place]) Address [address] [place] [address] Care Team Providers Care Machine Icer Name Role Phone Yuan Mccracken MD Primary Care Provider [phone] Encounter Details Date Type Department Care Team (Late st Contact Info) Description 01/23/2021 Transcribed Document [facility] [place] Family Medicine [address] [place] [address] ProviderPerry MD [address] [place] [address] Social History Tobacco Use Types Packs/Day Years Used Date Smoking Tobacco: Never Assessed Comments Unknown Sex and Gender Information Value Date Recorded Sex Assigned at Not on file Legal Sex Female 12:32 PM CDT Gender Identity Not on file Sexual Orientation Not on file documented as of this encounter Miscellaneous Notes * Cerner Conversion Note - Historical ProviderMD - 01/23/2021 4:50 PM CDT Treatment [...] : 01/16/2021 19:34 Assisted by, PT : photonic laboratory technician/aide Personal Devices : Personal Devices Dentures, [...] EDT Treatment Time : 46 Minute(s) CESIA WILSON, PT - 01/29/2021 15:30 EDT Cognitive Treatment, [...] PT Treatments Planned : Wound care CESIA WILSON, PT - 01/29/2021 15:30 EDT Short Term [...] WILSON, CESIA, PT - 01/29/2021 15:30 EDT Tour Agent Goals Mobility/Bed Mobility LTG PT Grid Goal [...] WILSON CESIA, PT - 01/29/2021 15:30 EDT WILSON, CESIA, PT - 01/29/2021 15:30 EDT WILSON, CESIA, PT - 01/29/2021 15:30 EDT Treatment [...] Pain scale Pain Score Pre-Intervention : 0 WILSON, CESIA, PT - 01/29/2021 15:30 EDT Image 1 - Images currently included in the form version of this document have not been included in the text rendition version of the form. documented in this encounter Plan of Treatment Not on file documented as of this encounter Visit Diagnoses Not on filedocumented in this encounter Care Teams Machine Icer Relationship Specialty Start Date End Date Yuan Mccracken MD [address] [place] [phone] PCP - General Family Medicine 09/23/22 documented as of this encounter
--- OUTSIDE RECORDS SUMMARY | 2025-07-15 10:27 | XMS_ITS | Encounter Summary ---
Author Organization [employer] ([place], [place], [place], [place], [place]) Address [address] [place] [address] Care Team Providers Care String Studies Director Name Role Phone Yuan Mccracken MD Primary Care Provider [phone] Encounter Details Date Type Department Care Team (Late st Contact Info) Description 01/31/2021 Transcribed Document [facility] [place] Family Medicine [address] [place] [address] ProviderPerry MD [address] [place] [address] Social History Tobacco Use Types [...] on filedocumented in this encounter Care Teams String Studies Director Relationship Specialty Start Date End Date Yuan Mccracken MD [address] [place] [address] PCP - General Family Medicine 09/23/22 documented as of this encounter
--- OUTSIDE RECORDS SUMMARY | 2025-07-15 10:27 | XMS_ITS | Encounter Summary ---
Author Organization [employer] ([place], [place], [place], [place], [place]) Address [address] [place] [address] Care Team Providers Care Steel Erector Name Role Phone Yuan Mccracken MD Primary Care Provider [phone] Encounter Details Date Type Department Care Team (Late st Contact Info) Description 01/23/2021 Transcribed Document [facility] [place] [address] [place] [address] ProviderPerry MD [address] [place], [place] [id number] Social History Tobacco Use Types Packs/Day Years Used Date Smoking Tobacco: Never Assessed Comments Unknown Sex and Gender Information Value Date Recorded Sex Assigned at Not on file Legal Sex Female 12:32 PM CDT Gender Identity Not on file Sexual Orientation Not on file documented as of this encounter Miscellaneous Notes * Cerner Conversion Note - Perry ProviderMD - 01/23/2021 12:14 PM CDT On Going Discharge Planning Entered On: 01/23/2021 12:17 EDT Performed On: 01/23/2021 12:14 EDT by aMryjane Gonzalez V, Dry Cleaning Checker Operations Professional Care Management Progress Note Discharge Arrangements : Patient Post-Acute Information Patient Name: CHANI VELASQUEZ Gender: Female : 56 Age: 60 Years No Post-Acute Placement(s) Listed No Post-Acute Service(s) Listed No Curaspan Referral(s) Listed Discharge Options Discussed with Patient : Acute rehabilitation, Home Health, [facility] Barriers to Discharge Identified : Clinical Condition of Patient Barriers to Discharge Unresolved : Clinical Condition of Patient Is the Patient Meeting Medical Necessity : Yes Physician Agreeable to Move Forward with D/C Plan? : Yes Maryjane Gonzalez V Dry Cleaning Checker [facility] [place]/23/2021 12:14 EDT Narrative Progress Note Narrative Progress Note : HD#6, ELOS-not recorded, RRS-Moderate, Boost-3 ID following and recommending culture right leg wound and possible vascular consult. On IV Vanc and Zosyn. 3L 02/NC.,wound care. PT/OT recommending rehab. Referrals sent via [facility] to [facility] and SNF. Patient pending Medicaid. Placement susanna be difficult due to no insurance. is a resident at [facility]. Referral sent there too. CM to follow -- Historical Progress Note : HD#5, ELOS-not recorded, RRS-Moderate, Boost-3 Patient on 2L 02/NC. IV Abx-Vanc and Zosyn. Wound care by PT. PT/OT recommending rehab. CM sent referrals via [employer]. Patient's is a resident at [facility]. Patient is self pay and has no health or presription coverage. Placement may be difficult due to pending Medicaid status. CM to follow patient's progess and SNF placement options. Maryjane Gonzalez V Dry Cleaning Checker Operations Professional - 01/22/21 13:50:41 Maryjane Gonzalez Social Worker [facility] [place] - 01/23/2021 12:14 EDT documented in this encounter Plan of Treatment Not on file documented as of this encounter Visit Diagnoses Not on filedocumented in this encounter Care Teams Steel Erector Relationship Specialty Start Date End Date Yuan Mccracken MD [address] [place] [phone] PCP - General Family Medicine 09/23/22 documented as of this encounter
--- OUTSIDE RECORDS SUMMARY | 2025-07-15 10:27 | XMS_ITS | Encounter Summary ---
Author Organization [employer] ([place], [place], [place], [place], [place]) Address [address] [place] [address] Care Team Providers Care Staff Electrical Engineer Name Role Phone Yuan Mccracken MD Primary Care Provider [phone] Encounter Details Date Type Department Care Team (Late st Contact Info) Description 01/25/2021 Transcribed Document [facility] [place] Medicine [facility] [place] [address] ProviderPerry MD [address] [place] [address] Social History Tobacco Use Types Packs/Day Years Used Date Smoking Tobacco: Never Assessed Comments Unknown Sex and Gender Information Value Date Recorded Sex Assigned at Not on file Legal Sex Female 12:32 PM CDT Gender Identity Not on file Sexual Orientation Not on file documented as of this encounter Miscellaneous Notes * Cerner Conversion Note - Perry ProviderMD - 01/25/2021 12:55 PM CDT Patient: CHANI [...] - Medical Apixaban 5 mg, Oral, Tab, [id number], Routine, Start 01/21/21 10:00:00 EDT, 01/21/21 9:43:00 [...] RT_Q4H Eliquis, 5 mg= 1 Tab, Oral, [id number] Lac-Hydrin 12% topical lotion, 1 Application, Topical, [...] mg= 1 Tab, Oral, BID, PRN nystatin, [id number] Units= 5 mL, Swish and Swallow , [...] Lymph # 1.35 x10(3)/uL 01/25/2021 07:06 EDT Dickinson % 6.8 % 01/25/2021 07:06 EDT Dickinson # 0.84 K/uL 01/25/2021 07:06 EDT Eos % 1.2 % 01/25/2021 07:06 EDT Eos # 0.15 x10(3)/uL 01/25/2021 07:06 EDT Baso % 0.2 % 01/25/2021 07:06 EDT Baso # 0.03 x10(3)/uL 01/25/2021 07:06 EDT Slide Review No 01/25/2021 07:06 EDT IG# 0.26 x10(3)/uL (High) 01/25/2021 07:06 EDT IG% 2.10 % (High) 01/25/2021 07:06 EDT Electronically signed by [facility], [facility] Conversion Fx Artist Cerner at 12/07/2022 6:08 PM CDT documented in this encounter Plan of Treatment Not on file documented as of this encounter Visit Diagnoses Not on filedocumented in this encounter Care Teams Staff Electrical Engineer Relationship Specialty Start Date End Date Yuan Mccracken MD [address] [place] [phone] PCP - General Family Medicine 09/23/22 documented as of this encounter
--- OUTSIDE RECORDS SUMMARY | 2025-07-15 10:27 | XMS_ITS | Encounter Summary ---
Author Organization [employer] ([place], [place], [place], [place], [place]) Address [address] [place] [address] Care Team Providers Care Cell Tender Helper Name Role Phone Yuan Mccracken MD Primary Care Provider [phone] Encounter Details Date Type Department Care Team (Late st Contact Info) Description 01/23/2021 Transcribed Document [facility] [place] Family Medicine [address] [place] [address] ProviderPerry MD [address] [place] [address] Social History Tobacco Use Types [...] Bed scale Routine Weight Entry Format : Savannah Routine Weight, Pounds : 283 lb Routine Weight, Ounces : 9 oz Routine Weight Calculation : 128.89 kg Height Source : Stated Height Entry Format : Savannah Height, Feet : 5 ft Height, Inches : 4 Inch Clinical Height : 162.56 cm Body Surface Area (BSA), Routine : 2.27 m2 Body Mass Index (BMI), Routine : 48.77 kg/m2 Karina Regalado RN-PATIENT CARE BEDSIDE NON-EXEMPT - 01/23/2021 5:35 EDT Electronically signed by Carlotta [facility] Conversion Cream Tester Cerner at 12/07/2022 6:09 PM CDT documented in this encounter Plan of Treatment Not on file documented as of this encounter Visit Diagnoses Not on filedocumented in this encounter Care Teams Cell Tender Helper Relationship Specialty Start Date End Date Yuan Mccracken MD [address] [place] [phone] PCP - General Family Medicine 09/23/22 documented as of this encounter
--- OUTSIDE RECORDS SUMMARY | 2025-07-15 10:27 | XMS_ITS | Encounter Summary ---
Author Organization [employer] ([place], [place], [place], [place], [place]) Address [address] [place] [address] Care Team Providers Care History Teacher Name Role Phone Yuan Mccracken MD Primary Care Provider [phone] Encounter Details Date Type Department Care Team (Late st Contact Info) Description 01/24/2021 Transcribed Document [facility] [place] Family Medicine [address] [place] [address] ProviderPerry MD [address] [place] [address] Social History Tobacco Use Types Packs/Day Years Used Date Smoking Tobacco: Never Assessed Comments Unknown Sex and Gender Information Value Date Recorded Sex Assigned at Not on file Legal Sex Female 12:32 PM CDT Gender Identity Not on file Sexual Orientation Not on file documented as of this encounter Miscellaneous Notes * Cerner Conversion Note - Perry ProviderMD - 01/24/2021 10:39 AM CDT Patient: CHANI [...] - Medical Apixaban 5 mg, Oral, Tab, [id number], Routine, Start 01/21/21 10:00:00 EDT, 01/21/21 9:43:00 [...] PRN Eliquis, 5 mg= 1 Tab, Oral, [id number] Lac-Hydrin 12% topical lotion, 1 Application, Topical, [...] mg= 1 Tab, Oral, BID, PRN nystatin, [id number] Units= 5 mL, Swish and Swallow , [...] Lymph # 1.28 x10(3)/uL 01/24/2021 07:39 EDT [place] % 6.8 % 01/24/2021 07:39 EDT [place] # 0.88 K/uL 01/24/2021 07:39 EDT Eos [...] mcg/mL 01/23/2021 17:04 EDT Electronically signed by [facility], [facility] Conversion Ammunition Assembly Laborer Cerner at 12/07/2022 6:11 PM CDT documented in this encounter Plan of Treatment Not on file documented as of this encounter Visit Diagnoses Not on filedocumented in this encounter Care Teams History Teacher Relationship Specialty Start Date End Date Yuan Mccracken MD [facility] [place] [address] PCP - General Family Medicine 09/23/22 documented as of this encounter
--- OUTSIDE RECORDS SUMMARY | 2025-07-15 10:27 | XMS_ITS | Clinical Summary ---
Author Organization [facility] Address [address] [place] [address] Care Team Providers Care Subgrade Roller Operator Name Role Phone Yuan Mccracken MD Primary Care Provider [phone] Allergies No known active allergies Social History [...] - Risk 60-74 years 1-dose series) 2018 APY-[id number]-75 Vaccine ( - 2024- season) 2025 02/18/2022, [...] to complete this topic Insurance Care Teams Subgrade Roller Operator Relationship Specialty Start Date End Date Yuan Mccracken MD [address] [phone] (work) PCP - General 09/13/22
--- OUTSIDE RECORDS SUMMARY | 2025-07-15 10:27 | XMS_ITS | Encounter Summary ---
Author Organization [employer] ([place], [place], [place], [place], [place]) Address [address] [place] [address] Care Team Providers Care Switch Operators Supervisor Name Role Phone Yuan Mccracken MD Primary Care Provider [phone] Encounter Details Date Type Department Care Team (Late st Contact Info) Description 01/23/2021 Transcribed Document [facility] [place] [facility] [place] [address] ProviderPerry MD [address] [place] [address] Social History Tobacco Use Types Packs/Day Years Used Date Smoking Tobacco: Never Assessed Comments Unknown Sex and Gender Information Value Date Recorded Sex Assigned at Not on file Legal Sex Female 12:32 PM CDT Gender Identity Not on file Sexual Orientation Not on file documented as of this encounter Miscellaneous Notes * Cerner Conversion Note - Historical ProviderMD - 01/23/2021 6:42 PM CDT Event [...] on filedocumented in this encounter Care Teams Switch Operators Supervisor Relationship Specialty Start Date End Date Yuan Mccracken MD [address] [place] [phone] PCP - General Family Medicine 09/23/22 documented as of this encounter
--- OUTSIDE RECORDS SUMMARY | 2025-07-15 10:27 | XMS_ITS | Encounter Summary ---
Author Organization [employer] ([place], [place], [place], [place], [place]) Address [address] [place] [address] Care Team Providers Care Rough Rounder Machine Name Role Phone Yuan Mccracken MD Primary Care Provider [phone] Encounter Details Date Type Department Care Team (Late st Contact Info) Description 01/31/2021 Transcribed Document [facility] [place] [address] [place] [address] ProviderPerry MD [address] [place] [address] Social History Tobacco Use Types [...] Nunes MD - 01/31/2021 10:49 AM CDT [facility] [place] [id number] CHANI HAY :1960 Visit Time:01/16/2021 Your Visit Summary Your Care Team Admitting Physician - PRINCESS RIVERA MD Attending Physician - MAHSA RINALDI MD Primary Care Physician - PHJakob, UNKNOWN Referring Physician - SELF, REFERRED (REF), [...] Comments f/u with venous reflux study Where: [facility] [address] [facility] [place] [address]- Business (1) Follow Up with JOSY LAW (REF) When Within 1 week Comments Please call and schedule an appointment to establish a Primary Care Provider in [place] once you receive your medicaid card. Call the patient resource center if you need assistance making this appointment. Where: [address] [facility] [place] [address] [place] [address]- Follow Up with Patient Resource Center When Only if needed Comments Please contact the Patient Resource Center at if you need assistance scheduling a Specialist or Primary Care Provider in the future. Follow Up with JOSE HARE MD-URO When Within 1 month Comments f/u stones Where: [address] [facility] [address] [place] [address]- Follow Up with DAMIAN HERNANDEZ When Within 1 month Where: [facility] [address] [place] [id number]- Business (1) Follow Up with JAGUAR PIZARRO When Within 2 months Where: [address] [facility] [place] [address]- Business (1) Medications What How Much When [...] these instructions at home: Medicines ??? Take rdvu-knu-umtvgel and prescription medicines only as told by [...] provider. Document Revised: 12/28/2018 Document Reviewed: 12/28/2018 [employer] Patient Education ?? 2020 Neuravi. metolazone (me MICHAELA a zone) Zaroxolyn What [...] may report side effects to FDA at 2-475-UWG-3846. What other drugs will affect metolazone? Taking [...] may interact with metolazone, including prescription and vmln-moh-mtzpwsp medicines, vitamins, and herbal products. Not all [...] to ensure that the information provided by [employer]. ('[employer]') is accurate, up-to-date, and complete, but no guarantee is made to that effect. Drug information contained herein may be time sensitive. [employer] information has been compiled for use by healthcare practitioners and consumers in the [place] and therefore [employer] does not warrant that uses outside of the [place] are appropriate, unless specifically indicated otherwise. [employer]'s drug information does not endorse drugs, diagnose patients or recommend therapy. [employer] drug information is an informational resource designed [...] effective or appropriate for any given patient. [facility] does not assume any responsibility for any aspect of healthcare administered with the aid of information [facility] provides. The information contained herein is not intended to cover all possible uses, directions, precautions, warnings, drug interactions, allergic reactions, or adverse effects. If you have questions about the drugs you are taking, check with your doctor, nurse or pharmacist. Copyright 1647-0209 [facility] [employer]. Version: 8.01. Revision Date: 10/27/2015. Emergency Awareness [...] Assistance with quitting is available by contacting 8-322-WEKN-NOW. This is a free resource providing counseling, [...] range between ( 0.0 and 7.0 ) Eddy #: 0.55 K/uL -- Normal range between ( 0.16 and 1.00 ) Eos #: 0.16 x10(3)/uL -- Normal range between ( 0.00 and 0.80 ) Eddy %: 6.6 % -- Normal range between [...] range between ( 5 and 11 ) Eddy Percent Man: 4 % -- Normal range between ( 4 and 5 ) Baso Percent Man: 1 % -- Normal range between ( 0 and 1 ) Neutrophil Percent Man: 77 % -- Normal range between ( 50 and 65 ) Eos Percent Man: 1 % -- Normal range between ( 0 and 3 ) Max Percent Man: 2 % -- Normal range [...] ) Urine Bilirubin Dipstick: Negative Urine Specific Magazine: 1.011 -- Normal range between ( 1.005 [...] Creatinine Urine Random: 38 mg/dL Sodium Ur [place]: 60 mMole/Liter 01/16/2021 2:59 AM Protein Ur [place]: 103 mg/dL General Chemistry 01/31/2021 6:49 AM [...] VL Veins LE Duplex BILAT Patient Name:CHANI HAY I have received and understand this information and was given the opportunity to ask questions. Patient/Damage Prevention Coordinator Name: Patient/Damage Prevention Coordinator Signature: Relationship to Patient: Clinician/Hospital Damage Prevention Coordinator Signature: Date: documented in this encounter Plan of Treatment Not on file documented as of this encounter Visit Diagnoses Not on filedocumented in this encounter Care Teams Rough Rounder Machine Relationship Specialty Start Date End Date Yuan Mccracken MD [address] [place] [address] PCP - General Family Medicine 09/23/22 documented as of this encounter
--- OUTSIDE RECORDS SUMMARY | 2025-07-15 10:27 | XMS_ITS | Encounter Summary ---
Author Organization [employer] ([place], [place], [place], [place], [place]) Address [address] [place] [address] Care Team Providers Care Slime Plant Operator Helper Name Role Phone Yuan Mccracken MD Primary Care Provider [phone] Encounter Details Date Type Department Care Team (Late st Contact Info) Description 01/31/2021 Transcribed Document [facility] [place] [address] [place] [address] ProviderPerry MD [address] [place] [address] Social History Tobacco Use Types [...] Performed On: 01/31/2021 9:40 EDT by EFRAIN RAY RN-Special Procedure Technologist Final Discharge Planning Discharge Arrangements : Patient [...] : SNF with Medicare Certification-03 EFRAIN RAY RN-Special Procedure Technologist - 01/31/2021 9:40 EDT Final Narrative Note Final Narrative Note : andrae giles at 10am EFRAIN RAY RN-Special Procedure Technologist - 01/31/2021 9:40 EDT Electronically signed by Carlotta, [facility] Conversion Business Ethics Professor Cerner at 12/07/2022 6:21 PM CDT documented in this encounter Plan of Treatment Not on file documented as of this encounter Visit Diagnoses Not on filedocumented in this encounter Care Teams Slime Plant Operator Helper Relationship Specialty Start Date End Date Yuan Mccracken MD [address] [place] [phone] PCP - General Family Medicine 09/23/22 documented as of this encounter
--- OUTSIDE RECORDS SUMMARY | 2025-07-15 10:27 | XMS_ITS | Encounter Summary ---
Author Organization [employer] ([place], [place], [place], [place], [place]) Address [address] [place] [address] Care Team Providers Care Nurse'S Companion Name Role Phone Yuan Mccracken MD Primary Care Provider [phone] Encounter Details Date Type Department Care Team (Late st Contact Info) Description 01/23/2021 Transcribed Document [facility] [place] [address] [place] [address] ProviderPerry MD [address] [place] [address] Social History Tobacco Use Types [...] on filedocumented in this encounter Care Teams Nurse'S Companion Relationship Specialty Start Date End Date Yuan Mccracken MD [facility] [place] [address] PCP - General Family Medicine 09/23/22 documented as of this encounter
--- OUTSIDE RECORDS SUMMARY | 2025-07-15 10:27 | XMS_ITS | Encounter Summary ---
Author Organization [employer] ([place], [place], [place], [place], [place]) Address [address] [place] [address] Care Team Providers Care Publications Manager Name Role Phone Yuan Mccracken MD Primary Care Provider [phone] Encounter Details Date Type Department Care Team (Late st Contact Info) Description 01/29/2021 Transcribed Document [facility] [place] [address] [place] [address] ProviderPerry MD [address] [place] [address] Social History Tobacco Use Types [...] 01/29/2021 16:26 EDT by Maryjane Gonzalez V, Finance Controller Drafter Castings Care Management Progress Note Discharge Arrangements : [...] Condition of Patient Maryjane Gonzalez Social Worker Drafter Castings - 01/29/2021 16:26 EDT Narrative Progress Note Narrative Progress Note : HD#12, elos-4, RRS-Moderate, Boost-3 [facility] has accepted pt for rehab and she is agreeable to rehab placement. Unable to obtain transportation until Tuesday at 10am via [employer] Historical Progress Note : HD#11, elos-4, RRS-Moderate, Boost-3 ID following and stopped IV Vanc and Zosyn. po doxy continued. Nephrology following. leg wounds improving with mist therapy with PT. CM sent updated clinical/therapy updates to all [facility] for possible rehab palcement. Lack of insurance is a HUGE placement barrier. No current bed offers. CM to follow Maryjane Gonzalez Social Worker Drafter Castings - 01/28/21 15:01:06 HD#10, elos-4, RRS-Moderate, Boost-3 ID following. IV Vanc and Zosyn and po doxy. Per nephrology, renal function stable. Wound care and mist therapy with PT. CM sent updated clinical/therapy updates to all [place] and [place] facilities. Lack of insurance is a huge placement barrier. CM called [facility]. Left message for admit coordinator. Patient's is a resident at [facility]. CM hopes that they will accept patient as well with pending Medicaid. CM to follow Maryjane Gonzalez Social Worker Drafter Castings - 01/27/21 14:23:52 HD#6, elos-4, RRS-Moderate, Boost-3 [...] and insurance status. Maryjane Gonzalez Social Worker Drafter Castings - 01/26/21 13:44:57 HD#6, ELOS-not recorded, RRS-Moderate, Boost-3 ID following and recommending culture right leg wound and possible vascular consult. On IV Vanc and Zosyn. 3L /NC.,wound care. PT/OT recommending rehab. Referrals sent via [facility] to [facility] and SNF. Patient pending Medicaid. Placement susanna be difficult due to no insurance. is a resident at [facility]. Referral sent there too. CM to follow -- Maryjane Gonzalez V Finance Controller Drafter Castings - 01/23/21 12:17:40 HD#5, ELOS-not recorded, RRS-Moderate, Boost-3 Patient on 2L 02/NC. IV Abx-Vanc and Zosyn. Wound care by PT. PT/OT recommending rehab. CM sent referrals via [employer]. Patient's is a resident at [facility]. Patient is self pay and has no health or presription coverage. Placement may be difficult due to pending Medicaid status. CM to follow patient's progess and SNF placement options. Maryjane Gonzalez V Finance Controller Drafter Castings - 01/22/21 13:50:41 Maryjane Gonzalez V Finance Controller [facility] [place] [facility] - 01/29/2021 16:26 EDT Electronically signed by Mamadou Laguerre Conversion [employer] Machine Operator Cerner at 12/07/2022 6:06 PM CDT documented in this encounter Plan of Treatment Not on file documented as of this encounter Visit Diagnoses Not on filedocumented in this encounter Care Teams Publications Manager Relationship Specialty Start Date End Date Yuan Mccracken MD [address] [place] [phone] PCP - General Family Medicine 09/23/22 documented as of this encounter
--- OUTSIDE RECORDS SUMMARY | 2025-07-15 10:27 | XMS_ITS | Encounter Summary ---
Author Organization [employer] ([place], [place], [place], [place], [place]) Address [address] [place] [address] Care Team Providers Care Community Relations Rep Name Role Phone Yuan Mccracken MD Primary Care Provider [phone] Encounter Details Date Type Department Care Team (Late st Contact Info) Description 01/23/2021 Transcribed Document [facility] [place] [facility] [place] [address] ProviderPerry MD [address] [place] [address] Social History Tobacco Use Types Packs/Day Years Used Date Smoking Tobacco: Never Assessed Comments Unknown Sex and Gender Information Value Date Recorded Sex Assigned at Not on file Legal Sex Female 12:32 PM CDT Gender Identity Not on file Sexual Orientation Not on file documented as of this encounter Miscellaneous Notes * Cerner Conversion Note - Perry ProviderMD - 01/23/2021 6:07 PM CDT Patient: CHANI [...] H 1.60 (TOM 01) Glu R 98 (JAN 23) H 121 [...] Rx will follow, [employer], FrankyD PGY1 Chef Manager Pager: [phone], Ext. [phone] Electronically signed by Carlotta, [facility] Conversion Street Light Wirer Cerner at 12/07/2022 6:05 PM CDT documented in this encounter Plan of Treatment Not on file documented as of this encounter Visit Diagnoses Not on filedocumented in this encounter Care Teams Community Relations Rep Relationship Specialty Start Date End Date Yuan Mccracken MD [facility] [place] [address] PCP - General Family Medicine 09/23/22 documented as of this encounter
--- OUTSIDE RECORDS SUMMARY | 2025-07-15 10:27 | XMS_ITS | Encounter Summary ---
Author Organization [employer] ([place], [place], [place], [place], [place]) Address [address] [place] [address] Care Team Providers Care River Tester Name Role Phone Yuan Mccracken MD Primary Care Provider [phone] Encounter Details Date Type Department Care Team (Late st Contact Info) Description 01/30/2021 Transcribed Document [facility] [place] [address] [place] [address] ProviderPerry MD [address] [place] [address] Social History Tobacco Use Types [...] - 01/30/2021 18:41 EDT Electronically signed by Carlotta [facility] Conversion Global Compensation Analyst Cerner at 12/07/2022 6:24 PM CDT documented in this encounter Plan of Treatment Not on file documented as of this encounter Visit Diagnoses Not on filedocumented in this encounter Care Teams River Tester Relationship Specialty Start Date End Date Yuan Mccracken MD [address] [place] [phone] PCP - General Family Medicine 09/23/22 documented as of this encounter
--- OUTSIDE RECORDS SUMMARY | 2025-07-15 10:27 | XMS_ITS | Encounter Summary ---
Author Organization [employer] ([place], [place], [place], [place], [place]) Address [address] [place] [address] Care Team Providers Care Manager Progressive Care Name Role Phone Yuan Mccracken MD Primary Care Provider [phone] Encounter Details Date Type Department Care Team (Late st Contact Info) Description 01/30/2021 Transcribed Document [facility] [place] [address] [place] [address] ProviderPerry MD [address] [place] [address] Social History Tobacco Use Types Packs/Day Years Used Date Smoking Tobacco: Never Assessed Comments Unknown Sex and Gender Information Value Date Recorded Sex Assigned at Not on file Legal Sex Female 12:32 PM CDT Gender Identity Not on file Sexual Orientation Not on file documented as of this encounter Miscellaneous Notes * Cerner Conversion Note - Perry ProviderMD - 01/30/2021 10:18 AM CDT On Going Discharge Planning Entered On: 01/30/2021 10:21 EDT Performed On: 01/30/2021 10:18 EDT by Maryjane Gonzalez V, Cycle Counter Material Distributor Care Management Progress Note Discharge Arrangements : [...] Rounds? : Yes Maryjane Gonzalez Social Worker Material Distributor - 01/30/2021 10:18 EDT Narrative Progress Note Narrative Progress Note : HD#13, elos-4, RRS-Moderate, Boost-[address] CM [address] to reach Dr[address] Gillis with Nephrology to see if patient is medically ready for dc to [facility] even though she is receiving IV albumin. Unable to reach him. Pt is scheduled to transfer to [facility] on Tuesday, 01/31 at 10am. If patient isn't medically ready per Nephology, [employer] transport will need to be canceled. If pt can transfer, RN to call report: [phone]. Fax DC summary fax to: [phone]. aMryjane Gonzalez Social Worker Material Distributor - 01/30/2021 16:45 EDT Historical Progress Note : HD#12, elos-4, RRS-Moderate, Boost-3 [facility] has accepted pt for rehab and she is agreeable to rehab placement. Unable to obtain transportation until Tuesday at 10am via [employer] Maryjane Gonzalez Social Worker Material Distributor - 01/29/21 16:32:32 HD#11, elos-4, RRS-Moderate, Boost-3 ID following and stopped IV Vanc and Zosyn. po doxy continued. Nephrology following. leg wounds improving with mist therapy with PT. CM sent updated clinical/therapy updates to all [place] and [facility] for possible rehab palcement. Lack of insurance is a HUGE placement barrier. No current bed offers. CM to follow Maryjane Gonzalez Social Worker Material Distributor - 01/28/21 15:01:06 HD#10, elos-4, RRS-Moderate, Boost-3 ID following. IV Vanc and Zosyn and po doxy. Per nephrology, renal function stable. Wound care and mist therapy with PT. CM sent updated clinical/therapy updates to all [place] and [place] facilities. Lack of insurance is a huge placement barrier. CM called [facility]. Left message for admit coordinator. Patient's is a resident at [facility]. CM hopes that they will accept patient as well with pending Medicaid. CM to follow Maryjane Gonzalez Social Worker Material Distributor - 01/27/21 14:23:52 HD#6, elos-4, RRS-Moderate, Boost-3 [...] and insurance status. Maryjane Gonzalez Social Worker Material Distributor - 01/26/21 13:44:57 HD#6, ELOS-not recorded, RRS-Moderate, Boost-3 ID following and recommending culture right leg wound and possible vascular consult. On IV Vanc and Zosyn. 3L 02/NC.,wound care. PT/OT recommending rehab. Referrals sent via [facility] to [facility] and SNF. Patient pending Medicaid. Placement susanna be difficult due to no insurance. is a resident at [facility]. Referral sent there too. CM to follow -- Maryjane Gonzalez Social Worker Material Distributor - 01/23/21 12:17:40 HD#5, ELOS-not recorded, RRS-Moderate, Boost-3 Patient on 2L 02/NC. IV Abx-Vanc and Zosyn. Wound care by PT. PT/OT recommending rehab. CM sent referrals via [employer]. Patient's is a resident at [facility]. Patient is self pay and has no health or presription coverage. Placement may be difficult due to pending Medicaid status. CM to follow patient's [facility] and SNF placement options. Maryjane Gonzalez Social Worker Material Distributor - 01/22/21 13:50:41 Maryjane Gonzalez V Cycle Counter Material Distributor - 01/30/2021 10:18 EDT Electronically signed by Carlotta [facility] Conversion Photographic Editor Libraner at 12/07/2022 6:02 PM CDT documented in this encounter Plan of Treatment Not on file documented as of this encounter Visit Diagnoses Not on filedocumented in this encounter Care Teams Manager Progressive Care Relationship Specialty Start Date End Date Yuan Mccracken MD [address] [place] [phone] PCP - General Family Medicine 09/23/22 documented as of this encounter
--- OUTSIDE RECORDS SUMMARY | 2025-07-15 10:27 | XMS_ITS | Encounter Summary ---
Author Organization [employer] ([place], [place], [place], [place], [place]) Address [address] [place] [address] Care Team Providers Care Bakery Worker Name Role Phone Yuan Mccracken MD Primary Care Provider [phone] Encounter Details Date Type Department Care Team (Late st Contact Info) Description 01/29/2021 Transcribed Document [facility] [place] [address] [place] [address] ProviderPerry MD [address] [place], [place] [id number] Social History Tobacco Use Types Packs/Day Years [...] RT_Q6H, PRN: Wheezing Eliquis: 5 mg, Oral, [id number] Lac-Hydrin 12% topical lotion: 1 Application, Topical, [...] 10:00) 97.8 (JAN 29 05:58) 98.1 (JAN 28:57) Apical HR 68 (JAN 29:21) 67 (JAN 28 21:12) 68 (JAN 29 [...] EDT Height Source Stated Height Entry Format [place] Height/Length, SERBIAN (ft) 5 ft Height/Length SERBIAN 4 Inch CLINICALHEIGHT 162.56 cm Routine Weight Source Bed scale Routine Weight Entry Format [place] Routine Weight, Pounds 267 lb Routine Weight, Ounces 5 oz Routine Weight Calculation 121.51 kg Body Mass Index (BMI), Routine 45.98 kg/m2 Body Surface Area (BSA), Routine 2.21 m2 01/28/2021 5:00 EDT Routine Weight Source Bed scale Routine Weight Entry Format [place] Routine Weight, Pounds 281 lb Routine Weight [...] to 02/02 -- probiotic Electronically signed by [facility], [facility] Conversion Transporter Radiology Cerner at 12/07/2022 6:03 PM CDT documented in this encounter Plan of Treatment Not on file documented as of this encounter Visit Diagnoses Not on filedocumented in this encounter Care Teams Bakery Worker Relationship Specialty Start Date End Date Yuan Mccracken MD [facility] [place] [address] PCP - General Family Medicine 09/23/22 documented as of this encounter
--- OUTSIDE RECORDS SUMMARY | 2025-07-15 10:27 | XMS_ITS | Encounter Summary ---
Author Organization [employer] ([place], [place], [place], [place], [place]) Address [address] [place] [address] Care Team Providers Care Kennel Staff Member Name Role Phone Yuan Mccracken MD Primary Care Provider [phone] Encounter Details Date Type Department Care Team (Late st Contact Info) Description 01/31/2021 Transcribed Document [facility] [place] [address] [place] [address] ProviderPerry MD [address] [place], [place] [id number] Social History Tobacco Use Types Packs/Day Years [...] RT_Q6H, PRN: Wheezing Eliquis: 5 mg, Oral, [id number] Lac-Hydrin 12% topical lotion: 1 Application, Topical, [...] 5 mg oral tablet: 1 Tab, Oral, [id number], 0 Refill(s) Lac-Hydrin 12% topical lotion: 1 [...] mg tab 5 mg 1 Tab, Oral, [id number] doxycycline hyclate 100 mg cap 100 mg [...] Problem list: Medical Obesity / SNOMED CT [id number] / Confirmed, Active Problems (1) Obesity Physical [...] 10) L 1.5 (TOM 08) L 1.5 (JAN 25) L 1.5 [...] renal funtion - No emergent need of CREATIVE ARTS MUSIC THERAPIST. - Increase protein in diet. Follow up with [facility] in 2-3 weeks with renal function, UA and UPCR Electronically signed by Carlotta, [facility] Conversion Servicer Coin Machines Cerner at 12/07/2022 6:25 PM CDT documented in this encounter Plan of Treatment Not on file documented as of this encounter Visit Diagnoses Not on filedocumented in this encounter Care Teams Kennel Staff Member Relationship Specialty Start Date End Date Yuan Mccracken MD [facility] [place] [address] PCP - General Family Medicine 09/23/22 documented as of this encounter
--- OUTSIDE RECORDS SUMMARY | 2025-07-15 10:27 | XMS_ITS | Encounter Summary ---
Author Organization [employer] ([place], [place], [place], [place], [place]) Address [address] [place] [address] Care Team Providers Care Clinical Rehabilitation Specialist Name Role Phone Yuan Mccracken MD Primary Care Provider [phone] Encounter Details Date Type Department Care Team (Late st Contact Info) Description 01/24/2021 Transcribed Document [facility] [place] [address] [place] [address] ProviderPerry MD [address] [place] [address] Social History Tobacco Use Types [...] Performed On: 01/24/2021 4:00 EDT by Marcella Hernandez, RN-TRAVELER Height and Weight, Routine Routine Weight Source : Bed scale Routine Weight Entry Format : [place] Routine Weight, Pounds : 289 lb Routine Weight Calculation : 131.36 kg Height Source : Stated Height Entry Format : [place] Height, Feet : 5 ft Height, Inches : 4 Inch Clinical Height : 162.56 cm Body Surface Area (BSA), Routine : 2.29 m2 Body Mass Index (BMI), Routine : 49.71 kg/m2 Marcella Hernandez, RN-TRAVELER - 01/24/2021 5:28 EDT Electronically signed by Carlotta [facility] Conversion Turbogenerator Operator Cerner at 12/07/2022 6:14 PM CDT documented in this encounter Plan of Treatment Not on file documented as of this encounter Visit Diagnoses Not on filedocumented in this encounter Care Teams Clinical Rehabilitation Specialist Relationship Specialty Start Date End Date Yuan Mccracken MD [address] [place] [phone] PCP - General Family Medicine 09/23/22 documented as of this encounter
--- OUTSIDE RECORDS SUMMARY | 2025-07-15 10:27 | XMS_ITS | Encounter Summary ---
Author Organization [employer] ([place], [place], [place], [place], [place]) Address [address] [place] [address] Care Team Providers Care Angle Shear Operator Name Role Phone Yuan Mccracken MD Primary Care Provider [phone] Encounter Details Date Type Department Care Team (Late st Contact Info) Description 02/02/2021 Transcribed Document [facility] [place] Family [place] [address] [place] [address] ProviderPerry MD [address] [place] [address] Social History Tobacco Use Types [...] On: 02/02/2021 14:32 EDT by Rochelle Vasquez, Vp Analytics Primary Insurance Authorization Authorization and Policy Numbers : Insurance 1 Health Plan: [facility] Policy Number: [id number] Authorization Number: Insurance Primary Name : [employer] MEDICAID [id number] Authorization Status-Primary : Awaiting callback Auth/Referral Contact Name-Primary : DC Reference Number-Primary : [id number] Authorized Service Begin Date-Primary : 01/16/2021 EDT Authorization Comments-Primary : Discharge date and summary faxed. Historical Authorization Comments-Primary : Comment 1: rec'd call from [employer] med[employer]- they did receive clinicals and will call back with a decision. (DWIGHT PERALTA, RN-Utilization Review 01/30/2021 10:07) Comment 2: vm to [employer] medicaid [id number] (covering for Brittney Kelly) asking if she rec'd clinical info faxed on 01/29/21. await call back (DWIGHT PERALTA, RN-Utilization Review 01/30/2021 09:26) Comment 3: CM gave a medicaid ID no. Per [place] pt has [employer] Notified [facility] clinicals submitted via [facility] portal and faxed via [employer] from 01/16 to 01/29 for Ip approval [...] (CARMEN MARLOW RN 01/20/2021 13:51) Rochelle Vasquez, Vp Analytics - 02/02/2021 14:32 EDT documented in this encounter Plan of Treatment Not on file documented as of this encounter Visit Diagnoses Not on filedocumented in this encounter Care Teams Angle Shear Operator Relationship Specialty Start Date End Date Yuan Mccracken MD [address] [place] [phone] PCP - General Family Medicine 09/23/22 documented as of this encounter
--- OUTSIDE RECORDS SUMMARY | 2025-07-15 10:27 | XMS_ITS | Encounter Summary ---
Author Organization [employer] ([place], [place], [place], [place], [place]) Address [address] [place] [address] Care Team Providers Care Coffin Maker Name Role Phone Yuan Mccracken MD Primary Care Provider [phone] Encounter Details Date Type Department Care Team (Late st Contact Info) Description 01/30/2021 Transcribed Document [facility] [place] [facility] [place] [address] ProviderPerry MD [address] [place] [address] Social History Tobacco Use Types [...] Numbers : Insurance 1 Health Plan: [facility] Policy Number: [id number] Authorization Number: Insurance Primary Name : [facility] MEDICAID [id number] Authorization Status-Primary : Awaiting callback Reference Number-Primary : Pend ref # [id number]. Authorized Service Begin Date-Primary : 01/16/2021 EDT Authorization Comments-Primary : vm to [facility] medicaid [id number] (covering for Brittney Kelly) asking if she rec'd clinical info faxed on 01/29/21. await call back Historical Authorization Comments-Primary : Comment 1: CM gave a medicaid ID no. Per [place] pt has [facility]. Notified [facility] clinicals submitted via [facility] portal and faxed via [employer] from 01/16 [...] PERALTA, RN-Utilization Review - 01/30/2021 9:26 EDT Electronically signed by Mamadou Laguerre Conversion School Curriculum Developer Cerner at 12/07/2022 6:30 PM CDT documented in this encounter Plan of Treatment Not on file documented as of this encounter Visit Diagnoses Not on filedocumented in this encounter Care Teams Coffin Maker Relationship Specialty Start Date End Date Yuan Mccracken MD [facility] [place] [address] PCP - General Family Medicine 09/23/22 documented as of this encounter
--- OUTSIDE RECORDS SUMMARY | 2025-07-15 10:27 | XMS_ITS | Encounter Summary ---
Author Organization [employer] ([place], [place], [place], [place], [place]) Address [address] [place] [address] Care Team Providers Care Aircraft Pneudraulics Repairer Name Role Phone Yuan Mccracken MD Primary Care Provider [phone] Encounter Details Date Type Department Care Team (Late st Contact Info) Description 01/23/2021 Transcribed Document [facility] [place] [address] [place] [address] ProviderPerry MD [address] [place] [address] Social History Tobacco Use Types [...] MISSY SHOEMAKER PTA - 01/23/2021 11:46 EDT Scuba Diving Teacher Goals Mobility/Bed Mobility LTG PT Grid Goal #1 Goal #2 Activity : Supine to sit Sit to stand Assist : Independent, modified Independent, modified Date to Meet : 02/02/2021 EDT 02/02/2021 EDT Goal Status : Progressing, continue Progressing, continue MISSY SHOEMAKER BEAMER OPERATOR - 01/23/2021 11:46 EDT MISSY SHOEMAKER PTA - 01/23/2021 11:46 EDT Ambulation LTG Grid Goal #1 Device : Walker, front wheel Distance : 150 ft Assist : Independent, modified Date to Meet : 02/02/2021 EDT Goal Status : Progressing, continue MISSY SHOEMAKER BEAMER OPERATOR - 01/23/2021 11:46 EDT Other PT LTG Grid Goal #1 Other : Open area to measure 1cmX0.5cm Date to Meet : 02/04/2021 EDT Goal Status : Progressing, continue MISSY SHOEMAKER BEAMER OPERATOR - 01/23/2021 11:46 EDT Treatment Note Subjective [...] Anticipated Discharge to : Unit, rehabilitation, Unit, longterm MISSY SHOEMAKER PTA - 01/23/2021 11:46 EDT Electronically signed by Gayle Laguerre Conversion Disaster Recovery Specialist Cerner at 12/07/2022 6:29 PM CDT documented in this encounter Plan of Treatment Not on file documented as of this encounter Visit Diagnoses Not on filedocumented in this encounter Care Teams Aircraft Pneudraulics Repairer Relationship Specialty Start Date End Date Yuan Mccracken MD [address] [place] [phone] PCP - General Family Medicine 09/23/22 documented as of this encounter
--- OUTSIDE RECORDS SUMMARY | 2025-07-15 10:27 | XMS_ITS | Encounter Summary ---
Author Organization [employer] ([place], [place], [place], [place], [place]) Address [address] [place] [address] Care Team Providers Care Syrup Filterer Name Role Phone Yuan Mccracken MD Primary Care Provider [phone] Encounter Details Date Type Department Care Team (Late st Contact Info) Description 01/23/2021 Transcribed Document [facility] [place] [facility] [place] [address] ProviderPerry MD [address] [place] [address] Social History Tobacco Use Types Packs/Day Years Used Date Smoking Tobacco: Never Assessed Comments Unknown Sex and Gender Information Value Date Recorded Sex Assigned at Not on file Legal Sex Female 12:32 PM CDT Gender Identity Not on file Sexual Orientation Not on file documented as of this encounter Miscellaneous Notes * Cerner Conversion Note - Peryr ProviderMD - 01/23/2021 2:00 AM CDT Fund Controller Details Entered On: 01/23/2021 5:35 EDT Performed [...] CARE BEDSIDE NON-EXEMPT - 01/23/2021 5:35 EDT documented in this encounter Plan of Treatment Not on file documented as of this encounter Visit Diagnoses Not on filedocumented in this encounter Care Teams Syrup Filterer Relationship Specialty Start Date End Date Yuan Mccracken MD [address] [place] [phone] PCP - General Family Medicine 09/23/22 documented as of this encounter
--- OUTSIDE RECORDS SUMMARY | 2025-07-15 10:27 | XMS_ITS | Encounter Summary ---
Author Organization [employer] ([place], [place], [place], [place], [place]) Address [address] [place] [address] Care Team Providers Care Mri Technician Name Role Phone Yuan Mccracken MD Primary Care Provider [phone] Encounter Details Date Type Department Care Team (Late st Contact Info) Description 01/23/2021 Transcribed Document [facility] [place] [facility] [place] [address] ProviderPerry MD [address] [place], [place] [address] Social History Tobacco Use Types Packs/Day Years [...] 1 Health Plan: MEDICAID PENDING Policy Number: [id number] Authorization Number: Insurance Primary Name : Self-pay Authorized Service Begin Date-Primary : 01/16/2021 EDT Authorization Comments-Primary : MEDICAID PENDING Historical Authorization Comments-Primary : Comment 1: SELF PAY (DWIGHT PERALTA, RN-Utilization Review 01/22/2021 08:29) Comment 2: SELF PAY (DWIGHT PERALTA, RN-Utilization Review 01/21/2021 08:19) Comment 3: Self pay at the time of review (CARMEN MARLOW RN 01/20/2021 13:51) DWIGHT PERALTA, RN-Utilization Review - 01/23/2021 9:42 EDT Electronically signed by [facility] Conversion Ems Coordinator Cerner at 12/07/2022 6:19 PM CDT documented in this encounter Plan of Treatment Not on file documented as of this encounter Visit Diagnoses Not on filedocumented in this encounter Care Teams Mri Technician Relationship Specialty Start Date End Date Yuan Mccracken MD [address] [place] [phone] PCP - General Family Medicine 09/23/22 documented as of this encounter
--- OUTSIDE RECORDS SUMMARY | 2025-07-15 10:27 | XMS_ITS | Encounter Summary ---
Author Organization [employer] ([place], [place], [place], [place], [place]) Address [address] [place] [address] Care Team Providers Care Substitute School Nurse Name Role Phone Yuan Mccracken MD Primary Care Provider [phone] Encounter Details Date Type Department Care Team (Late st Contact Info) Description 01/31/2021 Transcribed Document [facility] [place] [address] [place] [address] ProviderPerry MD [address] [place] [address] Social History Tobacco Use Types [...] EDT Electronically signed by Gayle Laguerre Conversion Radio Station Audio Engineer Cerner at 12/07/2022 6:10 PM CDT documented in this encounter Plan of Treatment Not on file documented as of this encounter Visit Diagnoses Not on filedocumented in this encounter Care Teams Substitute School Nurse Relationship Specialty Start Date End Date Yuan Mccracken MD [address] [place] [phone] PCP - General Family Medicine 09/23/22 documented as of this encounter
--- OUTSIDE RECORDS SUMMARY | 2025-07-15 10:27 | XMS_ITS | Encounter Summary ---
Author Organization [employer] ([place], [place], [place], [place], [place]) Address [address] [place] [address] Care Team Providers Care Design Specialist Name Role Phone Yuan Mccracken MD Primary Care Provider [phone] Encounter Details Date Type Department Care Team (Late st Contact Info) Description 01/30/2021 Transcribed Document [facility] [place] [facility] [place] [address] ProviderPerry MD [address] [place] [address] Social History Tobacco Use [...] Policy Numbers : Insurance 1 Health Plan: [facility] Policy Number: [id number] Authorization Number: Insurance Primary Name : [facility] MEDICAID [id number] Authorization Status-Primary : Awaiting callback Reference Number-Primary : Pend ref # [id number]. Authorized Service Begin Date-Primary : 01/16/2021 EDT Historical Authorization Comments-Primary : Comment 1: CM gave a medicaid ID no. Per [facility] pt has [facility]. Notified [facility] clinicals submitted via [facility] portal and faxed via [employer] from 01/16 [...] on filedocumented in this encounter Care Teams Design Specialist Relationship Specialty Start Date End Date Yuan Mccracken MD [address] [place] [phone] PCP - General Family Medicine 09/23/22 documented as of this encounter
--- OUTSIDE RECORDS SUMMARY | 2025-07-15 10:27 | XMS_ITS | Encounter Summary ---
Author Organization [employer] ([place], [place], [place], [place], [place]) Address [address] [place] [address] Care Team Providers Care Acetylene Gas Compressor Name Role Phone Yuan Mccracken MD Primary Care Provider [phone] Encounter Details Date Type Department Care Team (Late st Contact Info) Description 01/30/2021 Transcribed Document [facility] [place] [address] [place] [address] ProviderPerry MD [address] [place] [address] Social History Tobacco Use Types [...] EDT Electronically signed by Gayle Laguerre Conversion Infectious Disease Technician Cerner at 12/07/2022 6:25 PM CDT documented in this encounter Plan of Treatment Not on file documented as of this encounter Visit Diagnoses Not on filedocumented in this encounter Care Teams Acetylene Gas Compressor Relationship Specialty Start Date End Date Yuan Mccracken MD [address] [place] [address] PCP - General Family Medicine 09/23/22 documented as of this encounter
--- OUTSIDE RECORDS SUMMARY | 2025-07-15 10:27 | XMS_ITS | Encounter Summary ---
Author Organization [employer] ([place], [place], [place], [place], [place]) Address [address] [place] [address] Care Team Providers Care Diesel Service Journeyman Name Role Phone Yuan Mccracken MD Primary Care Provider [phone] Encounter Details Date Type Department Care Team (Late st Contact Info) Description 01/30/2021 Transcribed Document [facility] [place] Medicine [facility] [place] [address] ProviderPerry MD [address] [place] [address] Social History Tobacco Use Types [...] Policy Numbers : Insurance 1 Health Plan: [facility] Policy Number: [id number] Authorization Number: Insurance Primary Name : [employer] MEDICAID [id number] Authorization Status-Primary : Awaiting callback Reference Number-Primary : Pend ref # [id number]. Authorized Service Begin Date-Primary : 01/16/2021 EDT Authorization Comments-Primary : rec'd call from [employer] med[employer]- they did receive clinicals and will call back with a decision. Historical Authorization Comments-Primary : Comment 1: vm to [employer] med[employer] [phone] (covering for Brittney Kelly) asking if she rec'd clinical info faxed on 01/29/21. await call back (DWIGHT PERALTA, RN-Utilization Review 01/30/2021 09:26) Comment 2: CM gave a medicaid ID no. Per [facility] pt has [facility]. Notified [facility] clinicals submitted via [facility] portal and faxed via [employer] from 01/16 to 01/29 for Ip approval [...] on filedocumented in this encounter Care Teams Diesel Service Journeyman Relationship Specialty Start Date End Date Yuan Mccracken MD [address] [place] [phone] PCP - General Family Medicine 09/23/22 documented as of this encounter
--- OUTSIDE RECORDS SUMMARY | 2025-07-15 10:27 | XMS_ITS | Encounter Summary ---
Author Organization [employer] ([place], [place], [place], [place], [place]) Address [address] [place] [address] Care Team Providers Care Visitor Services Assistant Name Role Phone Yuan Mccracken MD Primary Care Provider [phone] Encounter Details Date Type Department Care Team (Late st Contact Info) Description 01/25/2021 Transcribed Document [facility] [place] [address] [place] [address] ProviderPerry MD [address] [place] [address] Social History Tobacco Use Types [...] Performed On: 01/25/2021 4:00 EDT by Marcella Hernandez, RN-TRAVELER Height and Weight, Routine Routine Weight Source : Bed scale Routine Weight Entry Format : [place] Routine Weight, Pounds : 277 lb Routine Weight Calculation : 125.91 kg Height Source : Stated Height Entry Format : [place] Height, Feet : 5 ft Height, Inches : 4 Inch Clinical Height : 162.56 cm Body Surface Area (BSA), Routine : 2.25 m2 Body Mass Index (BMI), Routine : 47.65 kg/m2 Marcella Hernandez, RN-TRAVELER - 01/25/2021 5:07 EDT Electronically signed by Carlotta [facility] Conversion Hammer Operator Cerner at 12/07/2022 6:06 PM CDT documented in this encounter Plan of Treatment Not on file documented as of this encounter Visit Diagnoses Not on filedocumented in this encounter Care Teams Visitor Services Assistant Relationship Specialty Start Date End Date Yuan Mccracken MD [address] [place] [phone] PCP - General Family Medicine 09/23/22 documented as of this encounter
--- OUTSIDE RECORDS SUMMARY | 2025-07-15 10:27 | XMS_ITS | Encounter Summary ---
Author Organization [employer] ([place], [place], [place], [place], [place]) Address [address] [place] [address] Care Team Providers Care Spray Applicator Name Role Phone Yuan Mccracken MD Primary Care Provider [phone] Encounter Details Date Type Department Care Team (Late st Contact Info) Description 01/18/2021 Transcribed Document [facility] [place] Medicine [address] [place] [address] ProviderPerry MD [address] [place] [address] Social History Tobacco Use Types [...] on filedocumented in this encounter Care Teams Spray Applicator Relationship Specialty Start Date End Date Yuan Mccracken MD [address] [place] [phone] PCP - General Family Medicine 09/23/22 documented as of this encounter
--- OUTSIDE RECORDS SUMMARY | 2025-07-15 10:27 | XMS_ITS | Encounter Summary ---
Author Organization [employer] ([place], [place], [place], [place], [place]) Address [address] [place] [address] Care Team Providers Care Base Manager Name Role Phone Yuan Mccracken MD Primary Care Provider [phone] Encounter Details Date Type Department Care Team (Late st Contact Info) Description 01/29/2021 Transcribed Document [facility] [place] [address] [place] [address] ProviderPerry MD [address] [place], [place] [id number] Social History Tobacco Use Types Packs/Day Years [...] RT_Q6H, PRN: Wheezing Eliquis: 5 mg, Oral, [id number] Lac-Hydrin 12% topical lotion: 1 Application, Topical, [...] mg tab 5 mg 1 Tab, Oral, [id number] doxycycline hyclate 100 mg cap 100 mg [...] Problem list: Medical Obesity / SNOMED CT [id number] / Confirmed, Active Problems (1) Obesity Physical [...] EDT Height Source Stated Height Entry Format [place] Height/Length, [place] (ft) 5 ft Height/Length [place] 4 Inch CLINICALHEIGHT 162.56 cm Routine Weight Source Bed scale Routine Weight Entry Format [place] Routine Weight, Pounds 267 lb Routine Weight, [...] 09) H 10.8 (TOM 08) H 11.6 (JAN 07) HB L 8.6 (TOM 10) L [...] renal funtion - No emergent need of FIELD CARE COORDINATOR. documented in this encounter Plan of Treatment Not on file documented as of this encounter Visit Diagnoses Not on filedocumented in this encounter Care Teams Base Manager Relationship Specialty Start Date End Date Yuan Mccracken MD [address] [place] [phone] PCP - General Family Medicine 09/23/22 documented as of this encounter
--- OUTSIDE RECORDS SUMMARY | 2025-07-15 10:27 | XMS_ITS | Encounter Summary ---
Author Organization [employer] ([place], [place], [place], [place], [place]) Address [address] [place] [address] Care Team Providers Care Duplicate Maker Name Role Phone Yuan Mccracken MD Primary Care Provider [phone] Encounter Details Date Type Department Care Team (Late st Contact Info) Description 01/23/2021 Transcribed Document [facility] [place] Family Medicine [address] [place] [address] ProviderPerry MD [address] [place], [place] [id number] Social History Tobacco Use Types Packs/Day Years [...] had progressive right leg swelling and erythema / afebrile, per hospitaist notes, erythema has improved [...] Daily, PRN: Constipation Eliquis: 5 mg, Oral, [id number] Lac-Hydrin 12% topical lotion: 1 Application, Topical, [...] mL: 1,750 mg, 250 mL/Hr, IV Piggyback, [id number] Physical Examination VS/Measurements Vitals Signs (last 24 [...] EDT Height Source Stated Height Entry Format [place] Height/Length, [place] (ft) 5 ft Height/Length [place] 4 Inch CLINICALHEIGHT 162.56 cm Routine Weight Source Bed scale Routine Weight Entry Format [place] Routine Weight, Pounds 283 lb Routine Weight, Ounces 9 oz Routine Weight Calculation 128.89 kg Body Mass Index (BMI), Routine 48.77 kg/m2 Body Surface Area (BSA), Routine 2.27 m2 01/22/2021 4:00 EDT Height Source Stated Height Entry Format [place] Height/Length, [place] (ft) 5 ft Height/Length [place] 4 Inch CLINICALHEIGHT 162.56 cm Routine Weight Entry Format [place] Routine Weight, Pounds 270 lb Routine Weight, [...] vascular consult -- probiotic Electronically signed by Carlotta, [facility] Conversion Market Research Lead Cerner at 12/07/2022 6:27 PM CDT documented in this encounter Plan of Treatment Not on file documented as of this encounter Visit Diagnoses Not on filedocumented in this encounter Care Teams Duplicate Maker Relationship Specialty Start Date End Date Yuan Mccracken MD [address] [place] [phone] PCP - General Family Medicine 09/23/22 documented as of this encounter
--- OUTSIDE RECORDS SUMMARY | 2025-07-15 10:27 | XMS_ITS | Encounter Summary ---
Author Organization [employer] ([place], [place], [place], [place], [place]) Address [address] [place] [address] Care Team Providers Care Logistics System Engineer Name Role Phone Yuan Mccracken MD Primary Care Provider [phone] Encounter Details Date Type Department Care Team (Late st Contact Info) Description 01/29/2021 Transcribed Document [facility] [place] [address] [place] [address] ProviderPerry MD [address] [place] [address] Social History Tobacco Use Types [...] on filedocumented in this encounter Care Teams Logistics System Engineer Relationship Specialty Start Date End Date Yuan Mccracken MD [facility] [place] [address] PCP - General Family Medicine 09/23/22 documented as of this encounter
--- OUTSIDE RECORDS SUMMARY | 2025-07-15 10:27 | XMS_ITS | Encounter Summary ---
Author Organization [employer] ([place], [place], [place], [place], [place]) Address [address] [place] [address] Care Team Providers Care Dye Jig Operator Name Role Phone Yuan Mccracken MD Primary Care Provider [phone] Encounter Details Date Type Department Care Team (Late st Contact Info) Description 02/03/2021 Transcribed Document [facility] [place] [address] [place] [address] ProviderPerry MD [address] [place] [address] Social History Tobacco Use Types Packs/Day Years Used Date Smoking Tobacco: Never Assessed Comments Unknown Sex and Gender Information Value Date Recorded Sex Assigned at Not on file Legal Sex Female 12:32 PM CDT Gender Identity Not on file Sexual Orientation Not on file documented as of this encounter Miscellaneous Notes * Cerner Conversion Note - Perry ProviderMD - 02/03/2021 2:24 PM CDT UM Authorization Entered On: 02/03/2021 14:24 EDT Performed On: 02/03/2021 14:24 EDT by DEYA GONZALEZ RN Primary Insurance Authorization Authorization and Policy Numbers : Insurance 1 Health Plan: [facility] Policy Number: [id number] Authorization Number: Insurance Primary Name : [employer] MEDICAID [id number] Authorization Status-Primary : Apprv contin stay Auth/Referral Contact Name-Primary : [place] Reference Number-Primary : [id number] Number of Days Authorized-Primary : 15 Day(s) Authorized Service Begin Date-Primary : 01/16/2021 EDT Authorized Service End Date-Primary : 01/31/2021 EDT Authorization Comments-Primary : Per [facility] portal all days are approved. Historical Authorization Comments-Primary : Comment 1: Discharge date and summary faxed. (Rochelle Vasquez, Agency Appointments Supervisor 02/02/2021 14:32) Comment 2: rec'd call from [employer] med[employer]- they did receive clinicals and will call back with a decision. (DWIGHT PERALTA, RN-Utilization Review 01/30/2021 10:07) Comment 3: vm to [employer] med[facility] [phone] (covering for Brittney Kelly) asking if she rec'd clinical info faxed on 01/29/21. await call back (DWIGHT PERALTA, RN-Utilization Review 01/30/2021 09:26) Comment 4: CM gave a medicaid ID no. Per [id number] pt has [employer]. Notified [facility] clinicals submitted via [facility] portal and faxed via [employer] from 01/16 to 01/29 for Ip approval [...] filedocumented in this encounter Care Teams Dye Jig Operator Relationship Specialty Start Date End Date Yuan Mccracken MD [address] [place] [phone] PCP - General Family Medicine 09/23/22 documented as of this encounter
--- OUTSIDE RECORDS SUMMARY | 2025-07-15 10:27 | XMS_ITS | Encounter Summary ---
Author Organization [employer] ([place], [place], [place], [place], [place]) Address [address] [place] [address] Care Team Providers Care Cold Meat Cook Name Role Phone Yuan Mccracken MD Primary Care Provider [phone] Encounter Details Date Type Department Care Team (Late st Contact Info) Description 01/26/2021 Transcribed Document [facility] [place] [address] [place] [address] ProviderPerry MD [address] [place], [place] [address] Social History Tobacco Use Types Packs/Day Years [...] RT_Q6H, PRN: Wheezing Eliquis: 5 mg, Oral, [id number] Lac-Hydrin 12% topical lotion: 1 Application, Topical, [...] mL: 1,750 mg, 250 mL/Hr, IV Piggyback, [id number] Physical Examination VS/Measurements Vitals Signs (last 24 [...] EDT Height Source Stated Height Entry Format [place] Height/Length, [place] (ft) 5 ft Height/Length [place] 4 Inch CLINICALHEIGHT 162.56 cm Routine Weight Source Bed scale Routine Weight Entry Format [place] Routine Weight, Pounds 277 lb Routine Weight [...] PT 11.9 (JAN 20) INR 1.1 (JAN 01) AST 20 (TOM 06) 25 (TOM [...] consult 01/23 -- probiotic Electronically signed by [facility] Conversion Song Plugger Cerner at 12/07/2022 6:03 PM CDT documented in this encounter Plan of Treatment Not on file documented as of this encounter Visit Diagnoses Not on filedocumented in this encounter Care Teams Cold Meat Cook Relationship Specialty Start Date End Date Yuan Mccracken MD [address] [place] [phone] PCP - General Family Medicine 09/23/22 documented as of this encounter
--- OUTSIDE RECORDS SUMMARY | 2025-07-15 10:27 | XMS_ITS | Encounter Summary ---
Author Organization [employer] ([place], [place], [place], [place], [place]) Address [address] [place] [address] Care Team Providers Care Catering Associate Name Role Phone Yuan Mccracken MD Primary Care Provider [phone] Encounter Details Date Type Department Care Team (Late st Contact Info) Description 01/30/2021 Transcribed Document [facility] [place] [facility] [place] [address] ProviderPerry MD [address] [place] [address] Social History Tobacco Use Types [...] Perry ProviderMD - 01/30/2021 2:00 AM CDT Green House Manager Details Entered On: 01/30/2021 4:24 EDT Performed [...] on filedocumented in this encounter Care Teams Catering Associate Relationship Specialty Start Date End Date Yuan Mccracken MD [address] [place] [phone] PCP - General Family Medicine 09/23/22 documented as of this encounter
--- OUTSIDE RECORDS SUMMARY | 2025-07-15 10:27 | XMS_ITS | Clinical Summary ---
Author Organization [facility] Address [address] [facility] [address] [place] [address] Phone Care Team Providers Care Missile Mechanic Name Role Phone Unavailable Unavailable Conditions or Problems No information available. Medications No information available. Medications Administered No information available. Allergies, Adverse Reactions, Alerts No information available. Results No information available. Plan of Care No information available. Procedures No information available. Vital Signs No information available. Immunizations No information available. Advance Directives No information available.
--- OUTSIDE RECORDS SUMMARY | 2025-07-15 10:27 | XMS_ITS | Encounter Summary ---
Author Organization [employer] ([place], [place], [place], [place], [place]) Address [address] [place] [address] Care Team Providers Care Personal Care Worker Name Role Phone Yuan Mccracken MD Primary Care Provider [phone] Encounter Details Date Type Department Care Team (Late st Contact Info) Description 01/22/2021 Transcribed Document [facility] [place] [address] [place] [address] ProviderPerry MD [address] [place] [address] Social History Tobacco Use Types [...] Weight, Routine Routine Weight Entry Format : [place] Routine Weight, Pounds : 270 lb Routine Weight, Ounces : 8 oz Routine Weight Calculation : 122.95 kg Height Source : Stated Height Entry Format : [place] Height, Feet : 5 ft Height, Inches : 4 Inch Clinical Height : 162.56 cm Body Surface Area (BSA), Routine : 2.23 m2 Body Mass Index (BMI), Routine : 46.53 kg/m2 Karina Regalado, RN-PATIENT CARE BEDSIDE NON-EXEMPT - 01/22/2021 5:48 EDT documented in this encounter Plan of Treatment Not on file documented as of this encounter Visit Diagnoses Not on filedocumented in this encounter Care Teams Personal Care Worker Relationship Specialty Start Date End Date Yuan Mccracken MD [address] [place] [phone] PCP - General Family Medicine 09/23/22 documented as of this encounter
--- OUTSIDE RECORDS SUMMARY | 2025-07-15 10:27 | XMS_ITS | Encounter Summary ---
Author Organization [employer] ([place], [place], [place], [place], [place]) Address [address] [place] [address] Care Team Providers Care Purchasing Internship Name Role Phone Yuan Mccracken MD Primary Care Provider [phone] Encounter Details Date Type Department Care Team (Late st Contact Info) Description 01/31/2021 Transcribed Document [facility] [place] [facility] [place] [address] ProviderPerry MD [address] [place], [place] [id number] Social History Tobacco Use Types Packs/Day Years [...] on filedocumented in this encounter Care Teams Purchasing Internship Relationship Specialty Start Date End Date Yuan Mccracken MD [address] [place] [address] PCP - General Family Medicine 09/23/22 documented as of this encounter
--- OUTSIDE RECORDS SUMMARY | 2025-07-15 10:27 | XMS_ITS | Encounter Summary ---
Author Organization [email or web address] ([place], [place], [place], [place], [place]) Address [address] [place] [address] Care Team Providers Care Travel Nurse Name Role Phone Yuan Mccracken MD Primary Care Provider [phone] Encounter Details Date Type Department Care Team (Late st Contact Info) Description 01/23/2021 Transcribed Document [facility] [place] [address] ProviderPerry MD [address] [place], [place] [id number] Social History Tobacco Use Types Packs/Day Years [...] - Medical Apixaban 5 mg, Oral, Tab, [id number], Routine, Start 01/21/21 10:00:00 EDT, 01/21/21 9:43:00 [...] PRN Eliquis, 5 mg= 1 Tab, Oral, [id number] Lac-Hydrin 12% topical lotion, 1 Application, Topical, BID Lasix, 20 mg= 1 Tab, Oral, Daily magnesium sulfate, 2 Gram= 50 mL, IV Piggyback, Daily, PRN magnesium sulfate, 2 Gram= 50 mL, IV Piggyback, Q2H, PRN metoprolol tartrate, 50 mg= 1 Tab, Oral, BID MiraLax, 17 Gram= 1 Packet, Oral, Daily, PRN Mucinex, 600 mg= 1 Tab, Oral, BID, PRN nystatin, [id number] Units= 5 mL, Swish and Swallow , [...] Man 10 % (Low) 01/23/2021 06:11 EDT [place] Percent Man 4 % 01/23/2021 06:11 EDT Eos Percent Man 1 % 01/23/2021 06:11 EDT Baso Percent Man 1 % 01/23/2021 06:11 EDT [place] Percent Man 2 % (High) 01/23/2021 06:11 EDT RBC Morphology Abnormal 01/23/2021 06:11 EDT Anisocytosis 1+ (Abnormal) 01/23/2021 06:11 EDT Poikilocytosis 1+ (Abnormal) 01/23/2021 06:11 EDT Polychromasia 1+ (Abnormal) 01/23/2021 06:11 EDT Hypochromia 1+ (Abnormal) 01/23/2021 06:11 EDT Stomatocytes 1+ (Abnormal) 01/23/2021 06:[address] Estimate Increased (Abnormal) 01/23/2021 06:11 EDT Slide Review Add Diff 01/23/2021 06:11 EDT Electronically signed by [facility], [facility] Conversion Graphic Art Sales Representative Cerner at 12/07/2022 6:15 PM CDT documented in this encounter Plan of Treatment Not on file documented as of this encounter Visit Diagnoses Not on filedocumented in this encounter Care Teams Travel Nurse Relationship Specialty Start Date End Date Yuan Mccracken MD [address] [place] [phone] PCP - General Family Medicine 09/23/22 documented as of this encounter
--- OUTSIDE RECORDS SUMMARY | 2025-07-15 10:27 | XMS_ITS | Encounter Summary ---
Author Organization [employer] ([place], [place], [place], [place], [place]) Address [address] [place] [address] Care Team Providers Care Hydrodynamics Teacher Name Role Phone Yuan Mccracken MD Primary Care Provider [phone] Encounter Details Date Type Department Care Team (Late st Contact Info) Description 03/04/2021 Transcribed Document [facility] [place] [address] [place] [address] ProviderPerry MD [address] [place] [id number] Social History Tobacco Use Types Packs/Day Years Used Date Smoking Tobacco: Never Assessed Comments Unknown Sex and Gender Information Value Date Recorded Sex Assigned at Not on file Legal Sex Female 12:32 PM CDT Gender Identity Not on file Sexual Orientation Not on file documented as of this encounter Miscellaneous Notes * Cerner Conversion Note - Perry ProviderMD - 03/04/2021 12:17 AM CDT [address] [address] OPERATIVE REPORT PATIENT IDENTIFICATION: CHANI VELASQUEZ (Female - 1960) ACCOUNT / UNIT NUMBER: [id number] / [id number] PRIMARY CARE PHYSICIAN: JEFF ROBBINS PATIENT LOCATION: [facility] ADMIT DATE / TIME: 03/03/21 1411 DISCHARGE DATE / TIME: DICTATED: 03/03/212016 by DHEERAJ GONZLAEZ TRANSCRIBED: 03/03/212108 by FRANCISCO IMPORTED: 03/03/212118 CC: [...] see her next week for stent removal. /[id number] Dictated By: DHEERAJ GONZALEZ E-Signed By: , RAFITA 16 08 [\R\ rep ct labl] [\R\ rep ct ivnm] Medical Disclaimer: This report is to be considered preliminary until reviewed and signed. Electronically signed by [facility] Conversion Manager Of Software Development Cerner at 11/23/2022 1:30 PM CDT documented in this encounter Plan of Treatment Not on file documented as of this encounter Visit Diagnoses Not on filedocumented in this encounter Care Teams Hydrodynamics Teacher Relationship Specialty Start Date End Date Yuan Mccracken MD [address] [place] [phone] PCP - General Family Medicine 09/23/22 documented as of this encounter
--- OUTSIDE RECORDS SUMMARY | 2025-07-15 10:27 | XMS_ITS | Encounter Summary ---
Author Organization [employer] ([place], [place], [place], [place], [place]) Address [address] [place] [address] Care Team Providers Care Crew Lead Name Role Phone Yuan Mccracken MD Primary Care Provider [phone] Encounter Details Date Type Department Care Team (Late st Contact Info) Description 02/02/2021 Transcribed Document [facility] [place] [place] [facility] [place] [address] ProviderPerry MD [address] [place] [address] Social History Tobacco Use Types Packs/Day Years Used Date Smoking Tobacco: Never Assessed Comments Unknown Sex and Gender Information Value Date Recorded Sex Assigned at Not on file Legal Sex Female 12:32 PM CDT Gender Identity Not on file Sexual Orientation Not on file documented as of this encounter Miscellaneous Notes * Cerner Conversion Note - Perry ProviderMD - 02/02/2021 3:27 PM CDT Event Note [...] on filedocumented in this encounter Care Teams Crew Lead Relationship Specialty Start Date End Date Yuan Mccracken MD [address] [place] [phone] PCP - General Family Medicine 09/23/22 documented as of this encounter
--- OUTSIDE RECORDS SUMMARY | 2025-07-15 10:27 | XMS_ITS | Encounter Summary ---
Author Organization [employer] ([place], [place], [place], [place], [place]) Address [address] [place] [address] Care Team Providers Care Hyperbaric Technician Name Role Phone Yuan Mccracken MD Primary Care Provider [phone] Encounter Details Date Type Department Care Team (Late st Contact Info) Description 01/23/2021 Transcribed Document [facility] [place] [address] ProviderPerry MD [address] [place] [address] Social History Tobacco Use Types Packs/Day Years Used Date Smoking Tobacco: Never Assessed Comments Unknown Sex and Gender Information Value Date Recorded Sex Assigned at Not on file Legal Sex Female 12:32 PM CDT Gender Identity Not on file Sexual Orientation Not on file documented as of this encounter Miscellaneous Notes * Cerner Conversion Note - Perry ProviderMD - 01/23/2021 6:34 PM CDT Patient: CHANI [...] - Medical Apixaban 5 mg, Oral, Tab, [id number], Routine, Start 01/21/21 10:00:00 EDT, 01/21/21 9:43:00 [...] PRN Eliquis, 5 mg= 1 Tab, Oral, [id number] Lac-Hydrin 12% topical lotion, 1 Application, Topical, [...] mg= 1 Tab, Oral, BID, PRN nystatin, [id number] Units= 5 mL, Swish and Swallow , [...] Man 10 % (Low) 01/23/2021 06:11 EDT [place] Percent Man 4 % 01/23/2021 06:11 EDT Eos Percent Man 1 % 01/23/2021 06:11 EDT Baso Percent Man 1 % 01/23/2021 06:11 EDT [place] Percent Man 2 % (High) 01/23/2021 06:11 [...] 01/23/2021 17:04 EDT Electronically signed by Interface, [facility] Conversion Metal Washing Machine Operator Cerner at 12/07/2022 6:13 PM CDT documented in this encounter Plan of Treatment Not on file documented as of this encounter Visit Diagnoses Not on filedocumented in this encounter Care Teams Hyperbaric Technician Relationship Specialty Start Date End Date Yuan Mccracken MD [address] [place] [phone] PCP - General Family Medicine 09/23/22 documented as of this encounter
--- OUTSIDE RECORDS SUMMARY | 2025-07-15 10:27 | XMS_ITS | Encounter Summary ---
Author Organization [employer] ([place], [place], [place], [place], [place]) Address [address] [place] [address] Care Team Providers Care Seat Covers Trimmer Name Role Phone Yuan Mccracken MD Primary Care Provider [phone] Encounter Details Date Type Department Care Team (Late st Contact Info) Description 01/19/2021 Transcribed Document [facility] [place] [address] [place] [address] ProviderPerry MD [address] [place] [address] Social History Tobacco Use Types [...] on filedocumented in this encounter Care Teams Seat Covers Trimmer Relationship Specialty Start Date End Date Yuan Mccracken MD [address] [place] [phone] PCP - General Family Medicine 09/23/22 documented as of this encounter
--- OUTSIDE RECORDS SUMMARY | 2025-07-15 10:27 | XMS_ITS | Encounter Summary ---
Author Organization [employer] ([place], [place], [place], [place], [place]) Address [address] [place] [address] Care Team Providers Care Space Operations Name Role Phone Yuan Mccracken MD Primary Care Provider [phone] Encounter Details Date Type Department Care Team (Late st Contact Info) Description 01/30/2021 Transcribed Document [facility] [place] [facility] [place] [address] ProviderPerry MD [address] [place] [address] Social History Tobacco Use Types [...] EDT Performed On: 01/30/2021 11:26 EDT by CEISA WILSON PT Attempt to Treat Unable to Treat Due To : Patient on hold Inability to Treat Comment : BLE Surepress still remains intact; however, anticipated disch tomorrow in am 6/12 and offered if needed to be changed today; pt stating will await disch tomorrow and anticipate BLE Surepress/dressing change once arriving to new faciltiy/rehab CESIA WILSON, PT - 01/30/2021 12:13 EDT Electronically signed by Gayle Laguerre Conversion Refinery Operator Visbreaking Cerner at 12/07/2022 6:29 PM CDT documented in this encounter Plan of Treatment Not on file documented as of this encounter Visit Diagnoses Not on filedocumented in this encounter Care Teams Space Operations Relationship Specialty Start Date End Date Yuan Mccracken MD [address] [place] [phone] PCP - General Family Medicine 09/23/22 documented as of this encounter
--- OUTSIDE RECORDS SUMMARY | 2025-07-15 10:27 | XMS_ITS | Encounter Summary ---
Author Organization [employer] ([place], [place], [place], [place], [place]) Address [address] [place] [address] Care Team Providers Care Keyboard Operator Name Role Phone Yuan Mccracken MD Primary Care Provider [phone] Encounter Details Date Type Department Care Team (Late st Contact Info) Description 01/30/2021 Transcribed Document [facility] [place] [address] [place] [address] ProviderPerry MD [address] [place], [place] [phone] Social History Tobacco Use Types Packs/Day Years [...] RT_Q6H, PRN: Wheezing Eliquis: 5 mg, Oral, [id number] Lac-Hydrin 12% topical lotion: 1 Application, Topical, [...] mg tab 5 mg 1 Tab, Oral, [id number] doxycycline hyclate 100 mg cap 100 mg [...] Problem list: Medical Obesity / SNOMED CT [id number] / Confirmed, Active Problems (1) Obesity Physical [...] EDT Height Source Stated Height Entry Format [place] Height/Length, TURKISH (ft) 5 ft Height/Length TURKISH 4 Inch CLINICALHEIGHT 162.56 cm Routine Weight Source Bed scale Routine Weight Entry Format [place] Routine Weight, Pounds 267 lb Routine Weight, [...] 11) L 8.3 (TOM 10) L 8.0 (JAN 09) L 8.1 (JAN 08) Lactic 2.0 (JANUARY 19) C 2.5 (JANUARY 17) C 2.3 (JANUARY 17) C 2.6 (JANUARY 16) PT 11.9 (JAN 20) INR 1.1 (JAN 20) AST 14 (JAN 10) 16 (JAN 08) 20 (JAN 06) 25 (JAN 05) ALT 18 (TOM 10) 18 (TOM 08) 21 (JAN 06) 28 (JAN 05) [...] renal funtion - No emergent need of ZONING ASSISTANT. documented in this encounter Plan of Treatment Not on file documented as of this encounter Visit Diagnoses Not on filedocumented in this encounter Care Teams Keyboard Operator Relationship Specialty Start Date End Date Yuan Mccracken MD [address] [place] [phone] PCP - General Family Medicine 09/23/22 documented as of this encounter
--- OUTSIDE RECORDS SUMMARY | 2025-07-15 10:28 | XMS_ITS | Encounter Summary ---
Author Organization [employer] ([place], [place], [place], [place], [place]) Address [address] [place] [address] Care Team Providers Care Polyethylene Combiner Name Role Phone Yuan Mccracken MD Primary Care Provider [phone] Encounter Details Date Type Department Care Team (Late st Contact Info) Description 01/18/2021 Transcribed Document [facility] [place] Medicine [address] [place] [address] ProviderPerry MD [address] [place] [address] Social History Tobacco Use Types [...] On: 01/19/2021 8:00 EDT by Charisse Granger Senior Biostatistician-Health Unit Coord Phone Call for Consults Consult Phone Call/Page Attempt : First call Charisse Granger Care Asst-Health Unit Coord - 01/19/2021 9:19 EDT documented in this encounter Plan of Treatment Not on file documented as of this encounter Visit Diagnoses Not on filedocumented in this encounter Care Teams Polyethylene Combiner Relationship Specialty Start Date End Date Yuan Mccracken MD [address] [place] [phone] PCP - General Family Medicine 09/23/22 documented as of this encounter
--- OUTSIDE RECORDS SUMMARY | 2025-07-15 10:28 | XMS_ITS | Encounter Summary ---
Author Organization [employer] ([place], [place], [place], [place], [place]) Address [address] [place] [address] Care Team Providers Care Cosmetic Chemist Name Role Phone Yuan Mccracken MD Primary Care Provider [phone] Encounter Details Date Type Department Care Team (Late st Contact Info) Description 01/18/2021 Transcribed Document [facility] [place] [facility] [address] ProviderPerry MD [address] [place] [address] Social History Tobacco Use Types [...] on filedocumented in this encounter Care Teams Cosmetic Chemist Relationship Specialty Start Date End Date Yuan Mccracken MD [address] [place] [phone] PCP - General Family Medicine 09/23/22 documented as of this encounter
--- OUTSIDE RECORDS SUMMARY | 2025-07-15 10:28 | XMS_ITS | Encounter Summary ---
Author Organization [employer] ([place], [place], [place], [place], [place]) Address [address] [place] [address] Care Team Providers Care Hospital Clinic Assistant Name Role Phone Yuan Mccracken MD Primary Care Provider [phone] Encounter Details Date Type Department Care Team (Late st Contact Info) Description 01/18/2021 Transcribed Document [facility] [place] Medicine [address] [place] [address] ProviderPerry MD [address] [place] [address] Social History Tobacco Use Types [...] filedocumented in this encounter Care Teams Hospital Clinic Assistant Relationship Specialty Start Date End Date Yuan Mccracken MD [address] [place] [phone] PCP - General Family Medicine 09/23/22 documented as of this encounter
--- OUTSIDE RECORDS SUMMARY | 2025-07-15 10:28 | XMS_ITS | Encounter Summary ---
Author Organization [employer] ([place], [place], [place], [place], [place]) Address [address] [place] [address] Care Team Providers Care Clerical And Administrative Workers Name Role Phone Yuan Mccracken MD Primary Care Provider [phone] Encounter Details Date Type Department Care Team (Late st Contact Info) Description 01/24/2021 Transcribed Document [facility] [place] Family Medicine [address] [place] [address] ProviderPerry MD [address] [place] [address] Social History Tobacco Use Types [...] EDT Electronically signed by Gayle Laguerre Conversion Supervisor Volunteer Services Cerner at 12/07/2022 6:21 PM CDT documented in this encounter Plan of Treatment Not on file documented as of this encounter Visit Diagnoses Not on filedocumented in this encounter Care Teams Clerical And Administrative Workers Relationship Specialty Start Date End Date Yuan Mccracken MD [facility] [place] [phone] PCP - General Family Medicine 09/23/22 documented as of this encounter
--- OUTSIDE RECORDS SUMMARY | 2025-07-15 10:28 | XMS_ITS | Encounter Summary ---
Author Organization [employer] ([place], [place], [place], [place], [place]) Address [address] [place] [address] Care Team Providers Care Medical Translator Name Role Phone Yuan Mccracken MD Primary Care Provider [phone] Encounter Details Date Type Department Care Team (Late st Contact Info) Description 01/18/2021 Transcribed Document [facility] Radiology [address] [place] [address] Tyler Recio MD [address] [facility] [address] [place] [address] Social History Tobacco Use Types Packs/Day Years [...] Gram= 1 Packet, Oral, Daily, PRN nystatin, [id number] Units= 5 mL, Swish and Spit, QID [...] on filedocumented in this encounter Care Teams Medical Translator Relationship Specialty Start Date End Date Yuan Mccracken MD [facility] [place] [phone] PCP - General Family Medicine 09/23/22 documented as of this encounter
--- OUTSIDE RECORDS SUMMARY | 2025-07-15 10:28 | XMS_ITS | Referral Summary ---
Author Organization [employer] ([place], [place], [place], [place], [place]) Address [address] [place] [address] Care Team Providers Care Tear Down Worker Name Role Phone Yuan Mccracken MD Primary Care Provider [phone] Allergies No known active allergies Medications aspirin [...] Date Castro rded Speak language other than Micronesian at home Not on file 09/08/2023 Want [...] Plan of Treatment Not on file Insurance [facility] Advance Directives For more information, please contact: [phone] * Full Code (Latest Code Status on File) Date Activated Date Inactivated Comments 09/23/2022 12:35 PM 09/24/2022 4:32 AM * Full Code Date Activated Date Inactivated Comments 09/22/2022 11:34 PM 09/23/2022 12:35 PM Care Teams Tear Down Worker Relationship Specialty Start Date End Date Yuan Mccracken MD [address] [place] [phone] PCP - General Family Medicine 09/23/22
--- OUTSIDE RECORDS SUMMARY | 2025-07-15 10:28 | XMS_ITS | Encounter Summary ---
Author Organization [employer] ([place], [place], [place], [place], [place]) Address [address] [place] [address] Care Team Providers Care Bolt Sawyer Name Role Phone Yuan Mccracken MD Primary Care Provider [phone] Encounter Details Date Type Department Care Team (Late st Contact Info) Description 01/18/2021 Transcribed Document [facility] [place] [address] [place] [address] ProviderPerry MD [address] [place] [address] Social History Tobacco Use Types [...] Annamaria Leyva RN - 01/18/2021 3:38 EDT Electronically signed by Gayle Laguerre Conversion Java User Interface Developer Cerner at 12/07/2022 6:19 PM CDT documented in this encounter Plan of Treatment Not on file documented as of this encounter Visit Diagnoses Not on filedocumented in this encounter Care Teams Bolt Sawyer Relationship Specialty Start Date End Date Yuan Mccracken MD [address] [place] [phone] PCP - General Family Medicine 09/23/22 documented as of this encounter
--- OUTSIDE RECORDS SUMMARY | 2025-07-15 10:28 | XMS_ITS | Encounter Summary ---
Author Organization [employer] ([place], [place], [place], [place], [place]) Address [address] [place] [address] Care Team Providers Care Saw Handle Assembler Name Role Phone Yuan Mccracken MD Primary Care Provider [phone] Encounter Details Date Type Department Care Team (Late st Contact Info) Description 01/24/2021 Transcribed Document [facility] [place] [facility] [place] [address] ProviderPerry MD [address] [place] [address] Social History Tobacco Use Types [...] (TOM 05 05:24) Resp Rate H 24 (TMO 05 11:24) 18 (TOM 05 09:33) H [...] H 1.20 (JAN 23) H 1.30 (JAN 03) H 1.40 (JAN 21) Glu R H [...] changes. Rx will follow, Dariel Hein PharmD, [facility] Pager: [phone], Ext. [phone] documented in this encounter Plan of Treatment Not on file documented as of this encounter Visit Diagnoses Not on filedocumented in this encounter Care Teams Saw Handle Assembler Relationship Specialty Start Date End Date Yuan Mccracken MD [address] [place] [phone] PCP - General Family Medicine 09/23/22 documented as of this encounter
--- OUTSIDE RECORDS SUMMARY | 2025-07-15 10:28 | XMS_ITS | Encounter Summary ---
Author Organization [employer] ([place], [place], [place], [place], [place]) Address [address] [place] [address] Care Team Providers Care Senior Security Analyst Name Role Phone Yuan Mccracken MD Primary Care Provider [phone] Encounter Details Date Type Department Care Team (Late st Contact Info) Description 01/24/2021 Transcribed Document [facility] [place] [address] [place] [address] ProviderPerry MD [address] [place] [address] Social History Tobacco Use Types [...] Perry ProviderMD - 01/24/2021 2:00 AM CDT Tax Compliance Agent Details Entered On: 01/24/2021 1:36 EDT Performed [...] - 01/24/2021 1:36 EDT Electronically signed by Gayle Laguerre Conversion Shell Molding Roller Blast Operator Cerner at 12/07/2022 6:20 PM CDT documented in this encounter Plan of Treatment Not on file documented as of this encounter Visit Diagnoses Not on filedocumented in this encounter Care Teams Senior Security Analyst Relationship Specialty Start Date End Date Yuan Mccracken MD [address] [place] [phone] PCP - General Family Medicine 09/23/22 documented as of this encounter
--- OUTSIDE RECORDS SUMMARY | 2025-07-15 10:28 | XMS_ITS | Encounter Summary ---
Author Organization [employer] ([place], [place], [place], [place], [place]) Address [address] [place] [address] Care Team Providers Care Station Cook Name Role Phone Yuan Mccracken MD Primary Care Provider [phone] Encounter Details Date Type Department Care Team (Late st Contact Info) Description 01/25/2021 Transcribed Document [facility] [place] [address] ProviderPerry MD [address] [place] [address] Social History Tobacco Use Types [...] Perry ProviderMD - 01/25/2021 2:00 AM CDT Telephone Coin Box Collector Details Entered On: 01/25/2021 3:35 EDT Performed [...] - 01/25/2021 3:35 EDT Electronically signed by Gayle Laguerre Conversion Online Communications Specialist Cerner at 12/07/2022 6:05 PM CDT documented in this encounter Plan of Treatment Not on file documented as of this encounter Visit Diagnoses Not on filedocumented in this encounter Care Teams Station Cook Relationship Specialty Start Date End Date Yuan Mccracken MD [address] [place] [phone] PCP - General Family Medicine 09/23/22 documented as of this encounter
--- OUTSIDE RECORDS SUMMARY | 2025-07-15 10:28 | XMS_ITS | Encounter Summary ---
Author Organization [employer] ([place], [place], [place], [place], [place]) Address [address] [place] [address] Care Team Providers Care Tufting Supervisor Name Role Phone Yuan Mccracken MD Primary Care Provider [phone] Encounter Details Date Type Department Care Team (Late st Contact Info) Description 01/18/2021 Transcribed Document [facility] [place] [address] [place] [address] ProviderPerry MD [address] [place] [address] Social History Tobacco Use Types [...] - 01/18/2021 4:40 EDT Electronically signed by [facility] Conversion Preforms Laminator Cerner at 12/07/2022 6:26 PM CDT documented in this encounter Plan of Treatment Not on file documented as of this encounter Visit Diagnoses Not on filedocumented in this encounter Care Teams Tufting Supervisor Relationship Specialty Start Date End Date Yuan Mccracken MD [address] [place] [phone] PCP - General Family Medicine 09/23/22 documented as of this encounter
--- OUTSIDE RECORDS SUMMARY | 2025-07-15 10:28 | XMS_ITS | Encounter Summary ---
Author Organization [employer] ([place], [place], [place], [place], [place]) Address [address] [place] [address] Care Team Providers Care Stockroom Inventory Clerk Name Role Phone Yuan Mccracken MD Primary Care Provider [phone] Encounter Details Date Type Department Care Team (Late st Contact Info) Description 01/18/2021 Transcribed Document [facility] Family [place] [address] ProviderPerry MD [address] [place] [address] Social History Tobacco Use Types Packs/Day Years Used Date Smoking Tobacco: Never Assessed Comments Unknown Sex and Gender Information Value Date Recorded Sex Assigned at Not on file Legal Sex Female 12:32 PM CDT Gender Identity Not on file Sexual Orientation Not on file documented as of this encounter Miscellaneous Notes * Cerner Conversion Note - Perry ProviderMD - 01/18/2021 2:00 AM CDT Heddle Machine Operator Details Entered On: 01/18/2021 2:46 EDT Performed [...] - 01/18/2021 2:46 EDT Electronically signed by [place], [facility] Conversion Buffer Inflated Pad Cerner at 12/07/2022 6:06 PM CDT documented in this encounter Plan of Treatment Not on file documented as of this encounter Visit Diagnoses Not on filedocumented in this encounter Care Teams Stockroom Inventory Clerk Relationship Specialty Start Date End Date Yuan Mccracken MD [address] [place] [address] PCP - General Family Medicine 09/23/22 documented as of this encounter
--- OUTSIDE RECORDS SUMMARY | 2025-07-15 10:28 | XMS_ITS | Clinical Summary ---
Author Organization [email or web address] ([place], [place], [place], [place], [place]) Address [address] [place] [address] Care Team Providers Care Skeiner Name Role Phone Yuan Mccracken MD Primary Care Provider [phone] Allergies No known active allergies Medications aspirin [...] Date Castro rded Speak language other than Georgian at home Not on file 09/08/2023 Want [...] Risk Screening 08/22/2024 COVID-19 VACCINE ( - season) 2025 02/18/2022, 06/05/2021, 04/22/2021 Influenza Vaccine (#1) 2025 Insurance [facility] Advance Directives For more information, please contact: [phone] * Full Code (Latest Code Status on File) Date Activated Date Inactivated Comments 09/23/2022 12:35 PM 09/24/2022 4:32 AM * Full Code Date Activated Date Inactivated Comments 09/22/2022 11:34 PM 09/23/2022 12:35 PM Care Teams Skeiner Relationship Specialty Start Date End Date Yuan Mccracken MD [address] [place] [id number] PCP - General Family Medicine 09/23/22
--- NOTE | 2025-07-15 10:30 | MR_ITS ---
APPROVED REPORT Shipping Clerk/Admin: CLINICAL INDICATION Evaluation for cardiomyopathy TECHNIQUE Image Acquisition: Cardiac magnetic resonance (CMR) was performed on Siemens Espree MRI 1.5T scanner. Software platform sequences were performed using the Siemens StorSimple MR B19 platform. A set of three-plane, low-resolution, large [id number]-[id number] localizers were initially acquired. Then axial, coronal, sagittal TrueFISP, as well as axial HASTE images, were obtained. These were followed by gated TrueFISP breathold cinematic sequences obtained in the short axis with 8 mm slices and 2 mm gaps, 2-chamber (vertical long axis), 3-chamber, 4-chamber (horizontal long axis). A bolus of contrast was injected intravenously with first-pass sequences obtained in the short axis and four-chamber planes. After approximately 10 minutes, a TI breadman sequence was performed to determine the optimal TI time. Using the optimized TI time, delayed contrast enhancement segmented inversion???recovery TurboFLASH sequences were obtained in the short axis, 2-chamber, 3-chamber, and 4-chamber projections. 2D-velocity phase mapping was performed. Functional parameters were calculated by offline analysis on an independent workstation ([employer] Platform, [employer]). Contrast: ProHance??? (Gadoteridol) FINDINGS MORPHOLOGY AND FUNCTION Left ventricle: The left ventricle is normal in size. The indexed left ventricular end-diastolic volume (LVEDVi) is 52 ml/m2 (reference range 57-105 ml/m2 in males, 56-96 ml/m2 in females). Normal left ventricular systolic function is present. There is mild increase in left ventricular wall thickness (maximum thickness 11.2 mm). There are no regional wall motion abnormalities noted. LVEF is calculated at 69.0% (reference range 57-77%). Right ventricle: The right ventricle is normal in size. The indexed right ventricular end-diastolic volume (RVEDVi) is 44 ml/m2 (reference range 61-121 ml/m2 in males, 48-112 ml/m2 in females). Normal right ventricular systolic function is present. RVEF is calculated at 58% (reference range 52-72% in males, 51-71% in females). Atria: The left atrium is mildly dilated. The maximum indexed left atrial volume is 39 ml/m2 (reference range 26-52 ml/m2 in males, 27-53 ml/m2 in females). The right atrium is mildly dilated. The maximum indexed right atrial volume is 38 ml/m2 (reference range 18-90 ml/m2). Aorta: The diameter of the aortic annulus is normal, measuring 21 mm (coronal view reference range 21-30 mm in males, 19-27 mm in females). The diameter of the aortic sinus is normal, measuring 28 mm (coronal view reference range 25-42 mm in males, 24-36 mm in females). The diameter of the sinotubular junction is normal, measuring 25 mm (coronal view reference range 18-32 mm in males, 18-28 mm in females). The diameters of the ascending and descending thoracic aorta are normal. Main pulmonary artery: The main pulmonary artery diameter is normal. Pericardium: The pericardial thickness is normal. The pericardial thickness measures 2.5 mm (normal < 4.0 mm). There is no pericardial effusion. VALVES The valvular morphologies in the visualized sequences appear normal. There is no significant valvular stenosis or regurgitation of the mitral, aortic, tricuspid, or pulmonic valve noted visually. Systolic anterior motion of the mitral valve is not visualized. Ratio of pulmonary to systemic flow, Qp:Qs ratio = 1.3 (normal < or = 1.2, hemodynamically significant shunt > 1.5), demonstrating no evidence of hemodynamically significant shunt. TISSUE CHARACTERIZATION Resting Perfusion: Normal myocardial blood flow at rest. No evidence of resting hypoperfusion. Myocardial Fibrosis and/or edema: There are small foci of faint patchy late gadolinium enhancement (LGE) noted in the basal inferior and inferolateral LV garcia, suggestive of regions of myocardial scarring. The pattern of LGE is non-specific. T2-weighted imaging demonstrates no evidence of myocardial edema or inflammation. OTHER No other significant findings are noted. However, this exam is focused on the cardiac structure and function. IMPRESSION Normal LV size with normal LV systolic function. LVEDVi= 52 ml/m2 and LVEF= 69.0%. Mild increase in left ventricular wall thickness (maximum thickness 11.2 mm) Normal RV size with normal RV systolic function. RVEDVi= 44 ml/m2 and RVEF= 58.0%. Mild biatrial enlargement. Small foci of faint patchy late gadolinium enhancement (LGE) noted in the basal inferior and inferolateral LV garcia, suggestive of regions of myocardial scarring. The pattern of LGE is non-specific. Perfusion analysis demonstrates normal blood flow at rest with no evidence of resting hypoperfusion. Ratio of pulmonary to systemic flow, Qp:Qs ratio = 1.3 (normal < or = 1.2, hemodynamically significant shunt > 1.5), demonstrating no evidence of hemodynamically significant shunt. The above CMR findings demonstrate normal biventricular systolic function with no evidence of ischemic or non-ischemic cardiomyopathy. The faint patchy LGE in the inferior and inferolateral LV garcia are non-specific, and in isolation (in the absence of structural cardiac abnormalities), do not suggest a specific underlying pathology. COMPARISON None CRITICAL RESULT None COMMUNICATION As above The findings of this cardiac MR were reviewed, reported, and signed by Priyank Bravo MD (Construction Laborer). Conclusion Electronically signed by : Ann Bravo MD 08/04/2025 22:53:35
[2025-07-15] MEDS: GADOTERIDOL INJ 20ML SYRINGE 20 ML IV (12:15)
[2025-07-15] MEDS: 0.9 % SODIUM CHLORIDE 50 ML VIAL 20 ML IV (12:15)
[2025-07-15] MEDS: GADOTERIDOL INJ 10ML SYRINGE 7 ML IV (12:15)
[2025-07-15] MEDS: SODIUM CHLORIDE 0.9% 10ML SYR (RAD ONLY) 10 ML IV (12:15)
== END 2025-07-15 23:59 | disposition home or self-care (01) ==
LOC: RAD 10:08
PROVIDERS: PCP Family Medicine; Visit Provider Nurse Practitioner
DX: I51.7 Cardiomegaly (principal); R93.1 Abnormal findings on diagnostic imaging of heart and coronary circulation
CPT/HCPCS: 75561; A9576